=== PATIENT | male | born 1955 | race Caucasian/White ===

== ENCOUNTER → 2017-11-02 | Outpatient (CLI) | payer OTHER ==
[2017-11-02 10:56] LABS: BASO % 0.5 %; BASO ABS # 0.05 K/uL (0-0.2); EOS % 3.2 %; EOS ABS # 0.32 K/uL (0-0.5); HEMATOCRIT 39.1 % (42-52); HEMOGLOBIN 12.6 g/dL (14.0-18.0); IG# 0.03 K/uL (0.00-0.02); LYMPH % 18.1 %; MEAN CELL VOLUME 100.3 fL (80-100); MEAN CORPUSCULAR HEMOGLOBIN 32.3 pg (25-34); MEAN CORPUSCULAR HGB CONC 32.2 g/dl (32-36); MEAN PLATELET VOLUME 11.6 fL (7.4-10.4); MONO % 10.7 %; MONO ABS # 1.07 K/uL (0.11-0.59); NEUT % 67.2 %; NEUT ABS # 6.69 K/uL (1.4-6.5); PLATELET COUNT 279 K/uL (130-400); RED CELL DISTRIBUTION WIDTH CV 13.8 % (11.5-14.5); RED CELL DISTRIBUTION WIDTH SD 49.6 fL (36.4-46.3); WHITE BLOOD COUNT 9.96 K/uL (4.8-10.8)
[2017-11-02 11:13] LABS: ALBUMIN 3.2 gm/dl (3.4-5.0); ALT/SGPT 41 U/L (12-78); BLOOD UREA NITROGEN 25 mg/dl (7-18); CALCIUM 9.5 mg/dl (8.5-10.1); CARBON DIOXIDE 25 mmol/L (21-32); CREATININE 0.78 mg/dl (0.60-1.40); GLUCOSE 189 mg/dl (70-99); POTASSIUM 4.1 mmol/L (3.5-5.1); SODIUM 138 mmol/L (136-145)
[2017-11-02 11:16] LABS: ALKALINE PHOSPHATASE 73 U/L (45-117); AST/SGOT 21 U/L (15-37); TOTAL PROTEIN 7.1 gm/dl (6.4-8.2)
[2017-11-02 11:38] LABS: HEMOGLOBIN A1C 6.7 % (4.5-5.6)
== END | disposition home or self-care (01) ==
LOC: C.LABUPNIT 09:29
PROVIDERS: ATTEND Nurse Practitioner Family
DX: E11.00 Type 2 diabetes mellitus with hyperosmolarity without nonketotic hyperglycemic-hyperosmolar coma (NKHHC) (principal); N18.2 Chronic kidney disease, stage 2 (mild)

== ENCOUNTER → 2017-11-08 | Outpatient (CLI) | payer OTHER ==
[2017-11-08 14:12] LABS: INFLUENZA B ANTIGEN Neg for Influ B (NEG)
== END ==
LOC: C.LABUPNIT 13:24
PROVIDERS: ATTEND Nurse Practitioner Family
DX: R50.9 Fever, unspecified (principal)

== ENCOUNTER 2017-11-15 23:51 | Inpatient (IN) | payer OTHER ==
[~2017-11-15] VITALS: Ht 188 cm; Wt 84.2 kg
[2017-11-16] VITALS (12 sets, daily range): BP systolic 114–129; BP diastolic 69–83; PULSE 70–99; TEMP 36.7–37.2; O2SAT 89–99; Ht 188 cm; Wt 84.2 kg
--- NOTE | 2017-11-16 00:43 | EMERGENCY ROOM VISIT NOTE ---
History Report prepared by Dana: Shivam Ramirez Under the Supervision of: Dr. Ashlee Dumont D.O. First contact with patient: 00:10 Chief Complaint: SHORTNESS OF BREATH Stated Complaint: SHORT OF BREATH History of Present Illness The patient is a 62 year old male who presents to the Emergency Room with complaints of persistent shortness of breath occurring prior to arrival. Per the nursing staff, the patient lives at [facility], and he was believed to have aspirated earlier today after coughing up his tube feeds and they sent him to the ED for evaluation. History is limited due to prior CVA. The patient was given IV Rocephin prior to transfer here. Source of History: nursing staff History Limited By: other (prior CVA) Onset: earlier today Position: other (global) Quality: other (shortness of breath) Timing: other (persistent) Associated Symptoms: + cough Review of Systems HPI is limited secondary to prior CVA Past Medical & Surgical Medical Problems: (1) Aspiration pneumonia (2) CKD (chronic kidney disease) (3) COPD (chronic obstructive pulmonary disease) (4) Diabetes (5) History of CVA (cerebrovascular accident) (6) HLD (hyperlipidemia) (7) PVD (peripheral vascular disease) Social History Smoking Status: Unknown if Ever Smoked Marital Status: single Housing Status: snf Current/Historical Medications Scheduled Atorvastatin (Lipitor), 20 MG PEG HS Bisacodyl (Dulcolax), 10 MG RE UD Carbamazepine (Tegretol), 100 MG PEG HS Carbamazepine (Carbatrol Er), 400 MG PEG BID Citalopram Hydrobromide (Citalopram Hydrobromide), 40 MG PEG DAILY Insulin Glargine (Lantus), 12 UNITS SQ QPM Lactobacillus Acidophilus (Lactinex), 1 TAB PEG TID Levetiractam (Levetiracetam), 10 ML PEG BID Metformin Hcl (Glucophage), 1,000 MG PEG BID Nystatin (Nystatin Suspension), 5 ML PO Q8 [Enteral Feed], 1 DOSE PEG Q8 [Water Flush], 250 ML PEG Q6 Scheduled PRN Acetaminophen (Tylenol), 650 MG PEG Q8 PRN for Pain Acetaminophen (Tylenol), 650 MG RE Q6H PRN for MILD PAIN Bisacodyl (Bisacodyl), 40 MG RE UD PRN for Constipation Budesonide (Inhalation) (Pulmicort), 2 ML INH QID PRN for copd Magnesium Hydroxide (Milk Of Magnesia), 30 ML PEG Q72 HOURS PRN for Constipation Allergies Coded Allergies: Pseudoephedrine (Verified Allergy, Unknown, UNKNOWN, 11/16/17) Physical Exam Vital Signs Date Time Temp Pulse Resp B/P (MAP) Pulse Ox O2 Delivery O2 Flow Rate FiO2 11/16/17 01:50 105 121/82 93 Nasal Cannula 4.0 11/16/17 00:36 94 Nasal Cannula 4.0 11/16/17 00:06 94 Nasal Cannula 4.0 11/15/17 23:59 121 11/15/17 23:58 37.0 121 25 130/81 94 Nasal Cannula 4.0 Physical Exam General: Non-verbal. HEENT: Head - normocephalic and atraumatic Pupils are equal, round, and reactive to light. Extraocular eye muscles are intact, and sclera are anicteric. Nose - moist nasal mucosa without discharge. Mouth - moist buccal mucosa. Oropharynx is nonerythematous and there is no tonsillar exudate or edema noted. Neck: Supple; no JVD, nuchal rigidity, cervical lymphadenopathy. Heart: Tachycardic rate and regular rhythm. There is a normal S1 and S2 with no murmurs, clicks, or gallops appreciated. Lungs: Tachypneic and raspy breath sounds. Rhonchi in all lung vasquez worse on the right than the left. Abdomen: Soft, completely nontender, nondistended, with good bowel sounds. There are no palpable pulsatile masses or hepatosplenomegaly. There is no guarding, rigidity, or rebound noted. Extremities: Left lower extremity has areas of skin breakdown. No evidence of cyanosis, clubbing, or edema. There are easily palpable peripheral pulses. Skin: Hot and dry with good turgor and no rashes. Medical Decision & Procedures ER Provider Diagnostic Interpretation: X-ray results as stated below per interpretation by me and the radiologist: Chest X-ray: Significantly rotated. No obvious pulmonary infiltrate or consolidation. Laboratory Results 11/16/17 00:05 Red Blood Count 3.91, Mean Corpuscular Volume 99.0, Mean Corpuscular Hemoglobin 32.2, Mean Corpuscular Hemoglobin Concent 32.6, Mean Platelet Volume 10.7, Neutrophils (%) (Auto) 82.8, Lymphocytes (%) (Auto) 8.9, Monocytes (%) (Auto) 7.4, Eosinophils (%) (Auto) 0.3, Basophils (%) (Auto) 0.2, Neutrophils # (Auto) 14.61, Lymphocytes # (Auto) 1.56, Monocytes # (Auto) 1.30, Eosinophils # (Auto) 0.05, Basophils # (Auto) 0.03 11/16/17 00:05 Test 11/16/17 00:05 11/16/17 00:55 White Blood Count 17.62 K/uL (4.8-10.8) Red Blood Count 3.91 M/uL (4.7-6.1) Hemoglobin 12.6 g/dL (14.0-18.0) Hematocrit 38.7 % (42-52) Mean Corpuscular Volume 99.0 fL (80-100) Mean Corpuscular Hemoglobin 32.2 pg (25-34) Mean Corpuscular Hemoglobin Concent 32.6 g/dl (32-36) Platelet Count 250 K/uL (130-400) Mean Platelet Volume 10.7 fL (7.4-10.4) Neutrophils (%) (Auto) 82.8 % Lymphocytes (%) (Auto) 8.9 % Monocytes (%) (Auto) 7.4 % Eosinophils (%) (Auto) 0.3 % Basophils (%) (Auto) 0.2 % Neutrophils # (Auto) 14.61 K/uL (1.4-6.5) Lymphocytes # (Auto) 1.56 K/uL (1.2-3.4) Monocytes # (Auto) 1.30 K/uL (0.11-0.59) Eosinophils # (Auto) 0.05 K/uL (0-0.5) Basophils # (Auto) 0.03 K/uL (0-0.2) RDW Standard Deviation 50.4 fL (36.4-46.3) RDW Coefficient of Variation 14.1 % (11.5-14.5) Immature Granulocyte % (Auto) 0.4 % Immature Granulocyte # (Auto) 0.07 K/uL (0.00-0.02) Hyposegmented Neutrophils 1+ Prothrombin Time 9.6 SECONDS (9.0-12.0) Prothromb Time International Ratio 0.9 (0.9-1.1) Activated Partial Thromboplast Time 24.6 SECONDS (21.0-31.0) Partial Thromboplastin Ratio 0.9 Anion Gap 10.0 mmol/L (3-11) Est Creatinine Clear Calc Drug Dose 114.2 ml/min Estimated GFR () 112.5 Estimated GFR (Non- 97.1 BUN/Creatinine Ratio 29.5 (10-20) Calcium Level 9.2 mg/dl (8.5-10.1) Total Bilirubin 0.2 mg/dl (0.2-1) Aspartate Amino Transf (AST/SGOT) 18 U/L (15-37) Alanine Aminotransferase (ALT/SGPT) 35 U/L (12-78) Alkaline Phosphatase 85 U/L (45-117) Total Protein 7.3 gm/dl (6.4-8.2) Albumin 3.0 gm/dl (3.4-5.0) Globulin 4.3 gm/dl (2.5-4.0) Albumin/Globulin Ratio 0.7 (0.9-2) Influenza Type A Antigen Neg for Influ A (NEG) Influenza Type B Antigen Neg for Influ B (NEG) Bedside Lactic Acid Venous 2.60 mmol/L (0.90-1.70) Laboratory results per my review. Medications Administered Medications (Trade) Dose Ordered Sig/Valerie Route Start Time Stop Time Status Last Admin Dose Admin Piperacillin Sod/ Tazobactam Sod (Zosyn Iv) 4.5 gm NOW STAT IV 11/16/17 00:53 11/16/17 00:54 DC 11/16/17 01:05 4.5 GM Sodium Chloride 1,000 ml @ 250 mls/hr Q4H STAT IV 11/16/17 01:49 11/16/17 04:47 DC 11/16/17 01:52 250 MLS/HR Sodium Chloride 1,000 ml @ 999 mls/hr Q1H1M STAT IV 11/16/17 01:49 11/16/17 02:49 DC 11/16/17 01:52 999 MLS/HR Procedure Ordered: Zosyn IV and Sodium Chloride ECG Indication: SOB/dyspnea Rate (beats per minute): 112 Rhythm: sinus tachycardia Findings: no acute ischemic change, no ectopy ED Course 0031: Past medical records reviewed. The patient was evaluated in room B11. A complete history and physical exam was performed. A septic protocol was performed. A twelve-lead EKG was obtained. The patient's EKG was interpreted by me. A chest x-ray was obtained. 0053: Zosyn 4.5gm IV 0149: Sodium Chloride 1000 ml @ 999 mls/hr IV, Sodium Chloride 1000 ml @ 250 mls /hr IV. 0150: Discussed the patient's case with Dr. Michaels. The patient will be evaluated for further management. 0212: I reevaluated the patient, and his vitals were stable, and he was in no significant respiratory distress. Medical Decision The patient is a 62 year old male who presents to the ED with shortness of breath. Differential diagnosis includes sepsis, aspiration, pneumonia, and illness. LaB results: White count of 17.6, hemoglobin of 12.6, 82% neutrophils, lactic acid of 2.6, BUN 24, creatinine .8, normal LFTs, normal coags, negative flu. This is a 62-year-old male patient with a history of stroke from [facility] who presents to the emergency department for possible aspiration pneumonia. The patient has a feeding tube in place. Nurses found the patient lying flat with vomitus about his face that contained tube feeds. The patient then appeared to be in moderate respiratory distress with O2 saturations in the 80s. He was suctioned for a large amount of tube feeds from the mouth. They're concerned for aspiration. They administered 1 g of IV Rocephin centimeter for evaluation. The patient remained hemodynamically stable on supplemental oxygen. The patient appears to be septic. He was receiving IV crystalloid therapy. His blood pressure remained stable. He was given IV Zosyn. Medication Reconcilliation Current Medication List: was personally reviewed by me Blood Pressure Screening Patient's blood pressure: Normal blood pressure Monitored by the hospitalist Consults Time Called: 0150 Consulting Physician: Dr. Brando FREEMAN Hospitalist Returned Call: 0150 Discussed the patient's case with Dr. Brando FREEMAN Hospitalist. The patient will be evaluated for further management. Impression Primary Impression: Sepsis Scribe Attestation The scribe's documentation has been prepared under my direction and personally reviewed by me in its entirety. I confirm that the note above accurately reflects all work, treatment, procedures, and medical decision making performed by me. Departure Information Dispostion Being Evaluated By Hospitalist Referrals Siomara Post (PCP) Patient Instructions My [facility] Problem Qualifiers Primary Impression: Sepsis Sepsis type: sepsis due to unspecified organism Qualified Codes: A41.9 - Sepsis, unspecified organism
[2017-11-16 00:53] LABS: HEMATOCRIT 38.7 % (42-52); HEMOGLOBIN 12.6 g/dL (14.0-18.0); MEAN CORPUSCULAR HEMOGLOBIN 32.2 pg (25-34); MEAN CORPUSCULAR HGB CONC 32.6 g/dl (32-36); MEAN PLATELET VOLUME 10.7 fL (7.4-10.4); PLATELET COUNT 250 K/uL (130-400); RED CELL DISTRIBUTION WIDTH CV 14.1 % (11.5-14.5); RED CELL DISTRIBUTION WIDTH SD 50.4 fL (36.4-46.3); WHITE BLOOD COUNT 17.62 K/uL (4.8-10.8)
[2017-11-16] MEDS ORDERED: PIPERACILLIN/TAZOBACTAM 4.5 GM/100ML D5W IV STA (00:53)
[2017-11-16 01:08] LABS: INR 0.9 (0.9-1.1); PTT PATIENT 24.6 SECONDS (21.0-31.0)
[2017-11-16 01:14] LABS: CALCIUM 9.2 mg/dl (8.5-10.1); CREATININE 0.8 mg/dl (0.60-1.40); POTASSIUM 4.4 mmol/L (3.5-5.1)
[2017-11-16 01:17] LABS: BASO % 0.2 %; BASO ABS # 0.03 K/uL (0-0.2); EOS % 0.3 %; EOS ABS # 0.05 K/uL (0-0.5); IG# 0.07 K/uL (0.00-0.02); LYMPH % 8.9 %; LYMPH ABS # 1.56 K/uL (1.2-3.4); MONO % 7.4 %; NEUT % 82.8 %; NEUT ABS # 14.61 K/uL (1.4-6.5); TOTAL PROTEIN 7.3 gm/dl (6.4-8.2)
[2017-11-16 01:20] LABS: INFLUENZA B ANTIGEN Neg for Influ B (NEG)
[2017-11-16] MEDS ORDERED: NYSS/ PO (01:30)
[2017-11-16] MEDS ORDERED: BUDE1SUS INH (01:32)
[2017-11-16] MEDS ORDERED: SODIUM CHLORIDE 0.9% 1000ML 1,000 ML IV STA ×2 (01:49)
[2017-11-16] MEDS ORDERED: METF-384 PEG (02:18)
[2017-11-16] MEDS ORDERED: MOML PEG (02:19)
[2017-11-16] MEDS ORDERED: INSDGI SQ (02:21)
[2017-11-16] MEDS ORDERED: LCTX PEG (02:22)
[2017-11-16] MEDS ORDERED: LEVE500T13 PO (02:24)
[2017-11-16] MEDS ORDERED: KPPS PEG (02:26)
[2017-11-16] MEDS ORDERED: ACET-1311 PEG (02:28)
[2017-11-16] MEDS ORDERED: ACET650S10 RE (02:30)
[2017-11-16] MEDS ORDERED: ATOR-22 PEG (02:31)
[2017-11-16] MEDS ORDERED: BISA1TAB15 RE (02:32)
[2017-11-16] MEDS ORDERED: CARB200T PEG (02:35)
[2017-11-16] MEDS ORDERED: CARB1CAP8 PEG (02:36)
[2017-11-16] MEDS ORDERED: CITA40TA4 PEG (02:37)
[2017-11-16] MEDS ORDERED: BISA-16 RE (02:38)
[2017-11-16] MEDS ORDERED: [UNRECOGNIZED DRUG - MIXTURE] PEG (02:41)
[2017-11-16] MEDS ORDERED: WATER FLUSH PEG (02:43)
[2017-11-16] MEDS ORDERED: PIPERACILL/TAZOBAC CONSULT ACTIVE PRN (03:00)
[2017-11-16] MEDS ORDERED: BISACODYL 5 MG TABEC GT PRN (03:00)
[2017-11-16] MEDS ORDERED: SODIUM CHLORIDE 0.9% 1000ML 1,000 ML IV SCH (03:15)
[2017-11-16] MEDS ORDERED: ONDANSETRON INJ 2 MG/ML 2 ML VIAL IV PRN (03:30)
[2017-11-16] MEDS ORDERED: MoRPHine SULFATE 2 MG/ML CARP IV PRN (03:30)
[2017-11-16] MEDS ORDERED: MAGNESIUM HYDROXIDE SUSP 30 ML UDC PO PRN (03:30)
[2017-11-16] MEDS ORDERED: ALUMINUM/MAGNESIUM/SIMETH (MAALOX MAX) 30 ML UDC PO PRN (03:30)
[2017-11-16] MEDS ORDERED: ACETAMINOPHEN 325 MG TAB PO PRN (03:30)
[2017-11-16] MEDS ORDERED: POLYETHYLENE (MIRALAX) 17 GM PACK PO PRN (03:30)
--- NOTE | 2017-11-16 03:42 | History and Physical ---
History & Physical Date & Time of Service: Nov 16, 2017 at 03:08 Chief Complaint: Short Of Breath Primary Care Physician: Siomara Post History of Present Illness Source: hospital records 62 y/o M Hx HTN, DMII, CKD, seizures, COPD, CVA - R hemiplegia and aphasia. Presenting for a NH where he was found spitting up/gurgling his tube feeds. He was hypoxic on arrival to the ER. Initial labs reveal leukocytosis and an elevated lactic acid. He is noncommunicative and cannot provide any further info. Past Medical/Surgical History 1) CVA - R hemiplegia, aphasia, dysphagia - MCA thrombosis 2) COPD 3) Seizure disorder 4) GERD 5) CKD II 6) HTN 7) Depression 8) DM II 9) Former smoker 10) Peg placement Social History Smoking Status: Former Smoker Allergies Coded Allergies: Pseudoephedrine (Verified Allergy, Unknown, UNKNOWN, 11/16/17) Home Medications Scheduled Atorvastatin (Lipitor), 20 MG PEG HS Bisacodyl (Dulcolax), 10 MG RE UD Carbamazepine (Tegretol), 100 MG PEG HS Carbamazepine (Carbatrol Er), 400 MG PEG BID Citalopram Hydrobromide (Citalopram Hydrobromide), 40 MG PEG DAILY Insulin Glargine (Lantus), 12 UNITS SQ QPM Lactobacillus Acidophilus (Lactinex), 1 TAB PEG TID Levetiractam (Levetiracetam), 10 ML PEG BID Metformin Hcl (Glucophage), 1,000 MG PEG BID Nystatin (Nystatin Suspension), 5 ML PO Q8 [Enteral Feed], 1 DOSE PEG Q8 [Water Flush], 250 ML PEG Q6 Scheduled PRN Acetaminophen (Tylenol), 650 MG PEG Q8 PRN for Pain Acetaminophen (Tylenol), 650 MG RE Q6H PRN for MILD PAIN Bisacodyl (Bisacodyl), 40 MG RE UD PRN for Constipation Budesonide (Inhalation) (Pulmicort), 2 ML INH QID PRN for copd Magnesium Hydroxide (Milk Of Magnesia), 30 ML PEG Q72 HOURS PRN for Constipation Review of Systems Cannot provide - found gurgling/spitting up what looked like his tube feeds Physical Exam Vital Signs Date Time Temp Pulse Resp B/P (MAP) Pulse Ox O2 Delivery O2 Flow Rate FiO2 11/16/17 01:50 105 121/82 93 Nasal Cannula 4.0 11/16/17 00:36 94 Nasal Cannula 4.0 11/16/17 00:06 94 Nasal Cannula 4.0 11/15/17 23:59 121 11/15/17 23:58 37.0 121 25 130/81 94 Nasal Cannula 4.0 General Appearance: + pertinent finding (Noncommunicative, middle aged male - no overt distress - gurgling can be heard) Head: normocephalic Eyes: normal inspection ENT: normal ENT inspection, + pertinent finding (COuld not examine oral cavity) Neck: supple, thyroid normal Respiratory/Chest: chest non-tender, + pertinent finding (Exam is limited by shallow effort and large air noises - no audible wheezing) Cardiovascular: regular rate, rhythm, no edema, no gallop Abdomen/GI: normal bowel sounds, non tender, soft Back: normal inspection, no CVA tenderness Extremities/Musculoskelatal: normal inspection, no calf tenderness, normal capillary refill Neurologic/Psych: + pertinent finding (Chronic R paralysis - may have degree of R neglect) Skin: normal color Diagnostics Laboratory Results Results Past 24 Hours Test 11/16/17 00:05 11/16/17 00:55 Range/Units White Blood Count 17.62 4.8-10.8 K/uL Red Blood Count 3.91 4.7-6.1 M/uL Hemoglobin 12.6 14.0-18.0 g/dL Hematocrit 38.7 42-52 % Mean Corpuscular Volume 99.0 80-100 fL Mean Corpuscular Hemoglobin 32.2 25-34 pg Mean Corpuscular Hemoglobin Concent 32.6 32-36 g/dl Platelet Count 250 130-400 K/uL Mean Platelet Volume 10.7 7.4-10.4 fL Neutrophils (%) (Auto) 82.8 % Lymphocytes (%) (Auto) 8.9 % Monocytes (%) (Auto) 7.4 % Eosinophils (%) (Auto) 0.3 % Basophils (%) (Auto) 0.2 % Neutrophils # (Auto) 14.61 1.4-6.5 K/uL Lymphocytes # (Auto) 1.56 1.2-3.4 K/uL Monocytes # (Auto) 1.30 0.11-0.59 K/uL Eosinophils # (Auto) 0.05 0-0.5 K/uL Basophils # (Auto) 0.03 0-0.2 K/uL RDW Standard Deviation 50.4 36.4-46.3 fL RDW Coefficient of Variation 14.1 11.5-14.5 % Immature Granulocyte % (Auto) 0.4 % Immature Granulocyte # (Auto) 0.07 0.00-0.02 K/uL Hyposegmented Neutrophils 1+ Prothrombin Time 9.6 9.0-12.0 SECONDS Prothromb Time International Ratio 0.9 0.9-1.1 Activated Partial Thromboplast Time 24.6 21.0-31.0 SECONDS Partial Thromboplastin Ratio 0.9 Sodium Level 135 136-145 mmol/L Potassium Level 4.4 3.5-5.1 mmol/L Chloride Level 99 98-107 mmol/L Carbon Dioxide Level 26 21-32 mmol/L Anion Gap 10.0 3-11 mmol/L Blood Urea Nitrogen 24 7-18 mg/dl Creatinine 0.80 0.60-1.40 mg/dl Est Creatinine Clear Calc Drug Dose 114.2 ml/min Estimated GFR () 112.5 Estimated GFR (Non- 97.1 BUN/Creatinine Ratio 29.5 10-20 Random Glucose 173 70-99 mg/dl Calcium Level 9.2 8.5-10.1 mg/dl Total Bilirubin 0.2 0.2-1 mg/dl Aspartate Amino Transf (AST/SGOT) 18 15-37 U/L Alanine Aminotransferase (ALT/SGPT) 35 12-78 U/L Alkaline Phosphatase 85 45-117 U/L Total Protein 7.3 6.4-8.2 gm/dl Albumin 3.0 3.4-5.0 gm/dl Globulin 4.3 2.5-4.0 gm/dl Albumin/Globulin Ratio 0.7 0.9-2 Influenza Type A Antigen Neg for Influ A NEG Influenza Type B Antigen Neg for Influ B NEG Bedside Lactic Acid Venous 2.60 0.90-1.70 mmol/L Microbiology Results 11/16/17 Blood Culture, Received Pending 11/16/17 Blood Culture, Received Pending Diagnostic Radiology CXR - no acute infiltrates EKG NSR Impression Assessment and Plan 62 y/o M Hx HTN, DMII, CKD, seizures, COPD, CVA - R hemiplegia and aphasia. Presenting for a NH where he was found spitting up/gurgling his tube feeds. He was hypoxic on arrival to the ER. Initial labs reveal leukocytosis and an elevated lactic acid. He is noncommunicative and cannot provide any further info. 1) Aspiration pneumonia - pt placed on Zosyn, 02 protocol, nebs as needed. His tube feeds are held and will he will eventually need reevaluation for continued use of his PEG. 2) COPD - uses Ipratropium and Pulmicourt only - no current wheezing - Sensitivity to Albuterol is listed 3) DM - Placed on SS - POC Q3H due to holding of enteral feeding 4) CKD II - listed in chart - function is WNL 5) Seizure disorder - cont Keppra, Carbamazapine 6) History of CVA - currently receiving a Statin - no ASA listed - would verify with NH as he should be on Aspirin if he can tolerate This pt arrived at his NH after a CVA at a [facility]-way where he was residing - he has an estranged sister and no other relatives - he was his own decision maker prior to the CVA Full code - confirmed with NH - Heparin prophylaxis Total time for this admit including review of labs, meds, outside records, CTA, EKG - discussion with ER attending - explanation of admission to pt - 40 min Level of Care Telemetry Resuscitation Status FULL RESUSCITATION VTE Prophylaxis Given or contraindicated: Unfractionated heparin SQ
[2017-11-16] MEDS: TUBE FEEDING WATER FLUSH PEG SCH ×3 (06:00→17:28)
[2017-11-16] MEDS: PIPERACILL/TAZOBAC IV 3.375 GM in DEXTROSE 5% 100ML 100 ML IV SCH ×3 (06:16→20:36)
[2017-11-16] MEDS: INSULIN ASPART 100 UNITS/ML 3 ML PEN SC SCH ×3 (07:00→17:52)
[2017-11-16] MEDS ORDERED: NURSING VERBAL MED ORDER ONE (07:15)
--- NOTE | 2017-11-16 07:23 | DIAGNOSTIC IMAGING REPORT ---
CHEST ONE VIEW PORTABLE CLINICAL HISTORY: Sepsis COMPARISON STUDY: No previous studies for comparison. FINDINGS: The patient is rotated. Multiple old right-sided rib fractures are incidentally noted. There is no pneumothorax or pleural effusion. There may be mild left upper lung airspace opacity. There is no lobar consolidation or evidence for pulmonary edema. Cardiac size is normal. Linear left basilar opacity is suggestive of atelectasis. IMPRESSION: Mild left upper lung opacity which favors an infectious process. Radiographic follow up is recommended to ensure resolution. Electronically signed by: Ulysses Barron M.D. 11/16/2017 7:22 AM Dictated Date/Time: 11/16/2017 7:19 AM
[2017-11-16] MEDS ORDERED: INFLUENZA VIRUS QUAD VACCINE 0.5 ML SYR IM. ONE (08:00)
[2017-11-16] MEDS ORDERED: PNEUMOCOCCAL ADMINISTRATION CHARGE ONE (08:00)
[2017-11-16] MEDS ORDERED: INFLUENZA ADMINISTRATION CHARGE ONE (08:00)
[2017-11-16] MEDS ORDERED: PNEUMOCOCCAL POLYSACCHARIDES 25 MCG/0.5 ML VIAL/SYR IM. ONE (08:00)
[2017-11-16] MEDS: IPRATROPIUM BROMIDE NEB SOLN 0.02% 2.5 ML VIAL INH SCH ×3 (08:02→23:36)
[2017-11-16] MEDS: BUDESONIDE 0.5 MG/2 ML VIAL (PULMICORT) INH SCH ×2 (09:30→23:20)
[2017-11-16] MEDS: LEVETIRACETAM SOLN 500 MG/5 ML UDP PEG SCH ×2 (09:37→20:09)
[2017-11-16] MEDS: LACTOBACILLUS ACIDOPHILUS (FLORANEX) TAB PEG SCH ×3 (09:38→20:08)
[2017-11-16] MEDS: NYSTATIN SUSP 500,000 U/5 ML UDC PO SCH ×3 (09:38→20:37)
[2017-11-16] MEDS: CITALOPRAM 40 MG TAB PEG SCH (09:38)
[2017-11-16] MEDS: HEPARIN SOD 5000 UNIT/0.5 ML CARP SQ SCH ×2 (10:08→15:55)
[2017-11-16 10:15] LABS: HEMATOCRIT 33.9 % (42-52); HEMOGLOBIN 10.9 g/dL (14.0-18.0); MEAN CELL VOLUME 98.8 fL (80-100); MEAN CORPUSCULAR HEMOGLOBIN 31.8 pg (25-34); MEAN CORPUSCULAR HGB CONC 32.2 g/dl (32-36); MEAN PLATELET VOLUME 9.9 fL (7.4-10.4); PLATELET COUNT 193 K/uL (130-400); RED CELL DISTRIBUTION WIDTH CV 14.1 % (11.5-14.5); WHITE BLOOD COUNT 14.08 K/uL (4.8-10.8)
[2017-11-16] MEDS: CARBAMAZEPINE 200 MG TAB PEG SCH ×5 (10:29→20:31)
[2017-11-16 10:39] LABS: CALCIUM 8.4 mg/dl (8.5-10.1); CREATININE 0.79 mg/dl (0.60-1.40); POTASSIUM 3.9 mmol/L (3.5-5.1)
--- NOTE | 2017-11-16 12:42 | Hospitalist Progress Note ---
Hospitalist Progress Note Date of Service Nov 16, 2017. (Eugenio Ruiz PA-C) Subjective Attending: Dr. 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 He was found flat in bed with tube feeds gurgling from his mouth and was transferred to [facility] for further evaluation and treatment. He was started on Zosyn IV and supplemental O2. On examination he was found to be saturating at 93 % on room air. He still has significant rhonchi but is in no apparent distress. PEG tube is secure with no erosion at the os. The bumper is in place and is also secure. Unable to obtain ROS due to patient condition. No records are in the patient's paper chart from [facility]. (Eugenio Ruiz PA-C) Medications Current Inpatient Medications Medications (Trade) Dose Ordered Sig/Valerie Route Start Time Stop Time Status Last Admin Dose Admin Atorvastatin Calcium (Lipitor Tab) 20 mg HS PEG 11/16/17 21:00 12/16/17 20:59 Bisacodyl (Dulcolax Tab) 10 mg DAILY PRN GT 11/16/17 03:00 12/16/17 02:59 Carbamazepine (Tegretol Tab) 100 mg HS PEG 11/16/17 21:00 12/16/17 20:59 Citalopram Hydrobromide (celeXA TAB) 40 mg DAILY PEG 11/16/17 09:00 12/16/17 08:59 11/16/17 09:38 40 MG Insulin Glargine (Lantus Solostar Pen) 12 units QPM SQ 11/16/17 21:00 12/16/17 20:59 Lactobacillus Acidophilus (Floranex Tab) 4 tab TID PEG 11/16/17 09:00 12/16/17 08:59 11/16/17 09:38 4 TAB Levetiracetam (Keppra Soln) 1,000 mg BID PEG 11/16/17 09:00 12/16/17 08:59 11/16/17 09:37 1,000 MG Nystatin (Mycostatin Susp) 5 ml Q8 PO 11/16/17 06:30 11/26/17 06:29 11/16/17 09:38 5 ML Carbamazepine (Tegretol Tab) 200 mg QID PEG 11/16/17 10:00 12/16/17 09:59 11/16/17 10:29 200 MG Miscellaneous Information (Order Awaiting Action) 1 ea QS N/A 11/16/17 10:00 12/16/17 09:59 Sterile Water (Tube Feeding Water Flush) 1 ea Q6 PEG 11/16/17 06:00 12/16/17 05:59 Piperacillin Sod/ Tazobactam Sod 3.375 gm/Dextrose 115 ml @ 28.75 mls/ hr Q8H IV 11/16/17 06:00 11/23/17 05:59 11/16/17 06:16 28.75 MLS/HR Miscellaneous Information (Consult) 1 ea UD PRN N/A 11/16/17 03:00 12/16/17 02:59 Ipratropium [place] (Atrovent 0.02% 0.5MG/2.5ML Neb) 0.5 mg Q8R INH 11/16/17 08:00 12/16/17 07:59 11/16/17 08:02 0.5 MG Budesonide (Pulmicort Respules 0.5MG/ 2ML Neb Soln) 1 mg Q12R INH 11/16/17 09:30 12/16/17 09:29 Sodium Chloride 1,000 ml @ 100 mls/hr Q10H IV 11/16/17 03:15 11/16/17 13:14 11/16/17 06:16 100 MLS/HR Heparin Sodium (Porcine) (Heparin Sq 5000 Unit/0.5ml) 5,000 unit Q8H SQ 11/16/17 07:00 12/16/17 06:59 11/16/17 10:08 5,000 UNIT Acetaminophen (Tylenol Tab) 650 mg Q4H PRN PO 11/16/17 03:30 12/16/17 03:29 Al Hydrox/Mg Hydrox/Simethicone (Maalox Max Susp) 15 ml Q4H PRN PO 11/16/17 03:30 12/16/17 03:29 Magnesium Hydroxide (Milk Of Magnesia Susp) 30 ml Q12H PRN PO 11/16/17 03:30 12/16/17 03:29 Ondansetron HCl (Zofran Inj) 4 mg Q6H PRN IV 11/16/17 03:30 12/16/17 03:29 Morphine Sulfate (MoRPHine SULFATE INJ) 2 mg Q30M PRN IV 11/16/17 03:30 11/30/17 03:29 Polyethylene (Miralax Powder Packet) 17 gm DAILY PRN PO 11/16/17 03:30 12/16/17 03:29 Insulin Aspart (novoLOG ASPART) SLIDING SCALE G... Q6H SC 11/16/17 07:00 12/16/17 06:59 (Eugenio Ruiz PA-C) Objective Vital Signs Vital Signs - as noted below Laboratory Data - as noted below Physical Exam: General - NAD Eyes - No icterus, gaze conjugate ENT - Mucosa moist, no lesions or candidiasis Neck - Supple, No JVD Lungs - No bronchospasm. Diffuse coarse rales with associated rhonchi. Heart - Regular, rate controlled in the 80s Abdomen - Soft, NT, ND, BS present. No rebound tenderness. PEG tube in place and secure Extremities - RLE edema, pedal pulses intact. Healing wound on the left tibia tender to palpation. No evidence of cellulitis other than pain Neuro - Eyes open. Responds to painful stimuli. Unable to communicate due to aphasia. Does not follow simple commands. Date Time Temp Pulse Resp B/P (MAP) Pulse Ox O2 Delivery O2 Flow Rate FiO2 11/16/17 11:57 36.7 84 16 128/74 (92) 96 11/16/17 09:00 36.8 88 16 123/75 (91) 94 Nasal Cannula 3.0 11/16/17 08:00 95 Nasal Cannula 3.0 11/16/17 07:15 91 16 96 Nasal Cannula 4.0 11/16/17 03:45 37.2 99 24 114/69 Nasal Cannula 4.0 11/16/17 03:45 37.2 99 24 114/69 (84) 94 Nasal Cannula 4.0 11/16/17 03:32 37.0 106 25 141/83 93 11/16/17 03:21 106 141/83 93 Nasal Cannula 4.0 11/16/17 01:50 105 121/82 93 Nasal Cannula 4.0 11/16/17 00:36 94 Nasal Cannula 4.0 11/16/17 00:06 94 Nasal Cannula 4.0 11/15/17 23:59 121 11/15/17 23:58 37.0 121 25 130/81 94 Nasal Cannula 4.0 (Eugenio Ruiz PA-C) Laboratory Results Last 24 Hours Test 11/16/17 00:00 11/16/17 00:05 11/16/17 00:55 11/16/17 04:36 Urine Color YELLOW Urine Appearance CLEAR Urine pH 5.0 Urine Specific [place] 1.027 Urine Protein NEG Urine Glucose (UA) NEG Urine Ketones NEG Urine Occult Blood NEG Urine Nitrite NEG Urine Bilirubin NEG Urine Urobilinogen NEG Urine Leukocyte Esterase NEG Urine WBC (Auto) 1-5 /hpf Urine RBC (Auto) 0-4 /hpf Urine Hyaline Casts (Auto) 1-5 /lpf Urine Epithelial Cells (Auto) >30 /lpf Urine Bacteria (Auto) NEG Urine Renal Epithelial Cells /lpf White Blood Count 17.62 K/uL Red Blood Count 3.91 M/uL Hemoglobin 12.6 g/dL Hematocrit 38.7 % Mean Corpuscular Volume 99.0 fL Mean Corpuscular Hemoglobin 32.2 pg Mean Corpuscular Hemoglobin Concent 32.6 g/dl Platelet Count 250 K/uL Mean Platelet Volume 10.7 fL Neutrophils (%) (Auto) 82.8 % Lymphocytes (%) (Auto) 8.9 % Monocytes (%) (Auto) 7.4 % Eosinophils (%) (Auto) 0.3 % Basophils (%) (Auto) 0.2 % Neutrophils # (Auto) 14.61 K/uL Lymphocytes # (Auto) 1.56 K/uL Monocytes # (Auto) 1.30 K/uL Eosinophils # (Auto) 0.05 K/uL Basophils # (Auto) 0.03 K/uL RDW Standard Deviation 50.4 fL RDW Coefficient of Variation 14.1 % Immature Granulocyte % (Auto) 0.4 % Immature Granulocyte # (Auto) 0.07 K/uL Hyposegmented Neutrophils 1+ Prothrombin Time 9.6 SECONDS Prothromb Time International Ratio 0.9 Activated Partial Thromboplast Time 24.6 SECONDS Partial Thromboplastin Ratio 0.9 Sodium Level 135 mmol/L Potassium Level 4.4 mmol/L Chloride Level 99 mmol/L Carbon Dioxide Level 26 mmol/L Anion Gap 10.0 mmol/L Blood Urea Nitrogen 24 mg/dl Creatinine 0.80 mg/dl Est Creatinine Clear Calc Drug Dose 114.2 ml/min Estimated GFR () 112.5 Estimated GFR (Non- 97.1 BUN/Creatinine Ratio 29.5 Random Glucose 173 mg/dl Calcium Level 9.2 mg/dl Total Bilirubin 0.2 mg/dl Aspartate Amino Transf (AST/SGOT) 18 U/L Alanine Aminotransferase (ALT/SGPT) 35 U/L Alkaline Phosphatase 85 U/L Total Protein 7.3 gm/dl Albumin 3.0 gm/dl Globulin 4.3 gm/dl Albumin/Globulin Ratio 0.7 Influenza Type A Antigen Neg for Influ A Influenza Type B Antigen Neg for Influ B Bedside Lactic Acid Venous 2.60 mmol/L Bedside Glucose 188 mg/dl Test 11/16/17 06:18 11/16/17 10:09 Lactic Acid Level 1.9 mmol/L White Blood Count 14.08 K/uL Red Blood Count 3.43 M/uL Hemoglobin 10.9 g/dL Hematocrit 33.9 % Mean Corpuscular Volume 98.8 fL Mean Corpuscular Hemoglobin 31.8 pg Mean Corpuscular Hemoglobin Concent 32.2 g/dl RDW Standard Deviation 50.0 fL RDW Coefficient of Variation 14.1 % Platelet Count 193 K/uL Mean Platelet Volume 9.9 fL Sodium Level 137 mmol/L Potassium Level 3.9 mmol/L Chloride Level 102 mmol/L Carbon Dioxide Level 28 mmol/L Anion Gap 7.0 mmol/L Blood Urea Nitrogen 17 mg/dl Creatinine 0.79 mg/dl Est Creatinine Clear Calc Drug Dose 115.6 ml/min Estimated GFR () 113.1 Estimated GFR (Non- 97.6 BUN/Creatinine Ratio 21.6 Random Glucose 180 mg/dl Calcium Level 8.4 mg/dl (Eugenio Ruiz PA-C) Assessment and Plan ASPIRATION PNEUMONIA * Found in supine position with tube feeds running and gurgling sounds from patient * Started on Zosyn * MRSA screening is negative * CXR with TRINITY opacity that is ill defined - will check f/u CXR tomorrow am * Oxygenation adequate on room air today * Continue supportive care PULMONARY * Former smoker * Reported COPD * Continue Abx for PNA * Continue bronchodilators * Unknown severity of COPD - target SaO2 between 88-92% NEURO * Seizure history - continue Keppra and Tegretol * No evidence of clonic activity * Will talk to Dr. Neal regarding utility of EEG or neuro consult * Hx CVA - R hemiplegia, aphasia, dysphagia - MCA thrombosis * Outpatient meds did not include ASA or clopidogrel and no anticoagulation * Continue statin RLE EDEMA * High risk of DVT * [facility] reported chronic edema but will check duplex to rule out DVT due to sedentary nature and poor clarity of timing regarding CVA * TEDs/SCDs if no DVT DMII * Continue Lantus * Continue SSI * Check HgB A1c NUTRITION * Patient with bolus tube feeds at [facility] * Nutrition consulted and I spoke with Babs Green RD. She will evaluate and write tube feed orders DVT PROPHYLAXIS * Heparin sub q * TEDs/SCDs if duplex is negative for DVTs Please refer to Dr. Neal's addendum for further recommendations (Eugenio Ruiz PA-C) Reviewed: Pt Seen/Exam by Me (Heidi Neal MD) History Physician [employer] Supervision Note: I interviewed and examined the patient. Discussed with NIURKA Ruiz and agree with findings and plan as documented in the note. Any exceptions or clarifications are listed here: Pt nonverbal, but appears comfortable. RN reports he is a lot more alert today, cooperative. Doppler LEs shows extensive DVTs bilaterally, heparin gtt started NAD, nonverbal, sitting up in bed RRR no mgr +coarse rhonchi anterior chest, otherwise CTAB Abd +BS soft NT ND Ext no edema, has some flexion contractures in upper extremities Skin-no rashes Pt is a 62 yo male with a h/o CVA with h/o HTN, DMII, CKD, seizures, COPD, CVA - R hemiplegia and aphasia. Presenting for a NH where he was found spitting up/ gurgling his tube feeds. He was hypoxic on arrival to the ER. Initial labs reveal leukocytosis and an elevated lactic acid. He is noncommunicative and cannot provide any further info. Aspiration pneumonia/Acute hypoxemic respiratory failure - with improving leukocytosis. Coul dhave PE considering extensive DVTs found today in LEs, however he is hemodynamically stable and treating with heparin gtt anyway-would not chnage management to get CTA CHest to look for PEs continue Zosyn, 02 protocol, nebs as needed. -ok to restart TFs, keep at 30 degrees -follow CXR Extensive bilateral lower extremity acute DVTs -seen on Doppler -started heparin gtt and will add on coumadin through PEG tube tomorrow -follow INR COPD - uses Ipratropium and Pulmicourt only - no current wheezing - Sensitivity to Albuterol is listed DMII - Placed on SS -check A1C, check accuchecks CKD II - listed in chart - function is WNL Seizure disorder - cont Keppra, Carbamazapine History of CVA - currently receiving a Statin - no ASA listed - would verify with NH as he should be on Aspirin if he can tolerate This pt arrived at his NH after a CVA at a nursing home where he was residing - he has an estranged sister and no other relatives - he was his own decision maker prior to the CVA Full code - confirmed with NH - Prophylaxis-being treated for acute DVT with Heparin gtt Documented By: Heidi Neal (Heidi Neal MD)
--- NOTE | 2017-11-16 14:35 | DIAGNOSTIC IMAGING REPORT ---
BILATERAL LOWER EXTREMITY VENOUS DOPPLER CLINICAL HISTORY: RLE edema - bedbound patient COMPARISON STUDY: No previous studies for comparison. TECHNIQUE: Sonography of the deep venous system of the bilateral lower extremities was performed. Compression and augmentation were evaluated. FINDINGS: There is extensive deep venous thrombus within the right lower extremity, including thrombus within the right common femoral, superficial femoral, popliteal, posterior tibial and peroneal veins. Several of these vessels are expanded. Thrombus is largely occlusive. There is extensive thrombosis within the left lower extremity with deep venous thrombus within the left common femoral, popliteal, posterior tibial and peroneal veins. IMPRESSION: Extensive deep venous thrombus within the bilateral lower extremities, as detailed above. Electronically signed by: Ulysses Barron M.D. 11/16/2017 2:34 PM Dictated Date/Time: 11/16/2017 2:32 PM
[2017-11-16] MEDS: FIBERSOURCE HN 1000ML BAG PEG SCH (15:53)
[2017-11-16] MEDS ORDERED: HEPARIN IV BOLUS 7,000 UNIT in SYRINGE 0 ML IV SCH (17:45)
[2017-11-16 17:52] LABS: PTT PATIENT 26.3 SECONDS (21.0-31.0)
[2017-11-16] MEDS: HEPARIN 25,000 UNIT/500ML D5W 500 ML IV PRN (17:59)
[2017-11-16] MEDS: ATORVASTATIN 20 MG TAB PEG SCH (20:09)
[2017-11-16] MEDS: INSULIN GLARGINE SOLOSTAR 100 UNITS/ML 3 ML PEN SQ SCH (20:33)
[2017-11-17] VITALS (10 sets, daily range): BP systolic 119–143; BP diastolic 69–83; PULSE 63–90; TEMP 36.6–37.2; O2SAT 89–96
[2017-11-17] MEDS: TUBE FEEDING WATER FLUSH PEG SCH ×4 (00:13→18:11)
[2017-11-17 01:17] LABS: PTT PATIENT 84.2 SECONDS (21.0-31.0)
[2017-11-17] MEDS: HEPARIN 25,000 UNIT/500ML D5W 500 ML IV PRN ×2 (02:00→11:38)
[2017-11-17] MEDS: PIPERACILL/TAZOBAC IV 3.375 GM in DEXTROSE 5% 100ML 100 ML IV SCH ×2 (04:59→13:34)
[2017-11-17] MEDS: NYSTATIN SUSP 500,000 U/5 ML UDC PO SCH ×3 (04:59→20:55)
[2017-11-17] MEDS: INSULIN ASPART 100 UNITS/ML 3 ML PEN SC SCH ×4 (06:00→18:00)
[2017-11-17] MEDS ORDERED: ALBUTEROL 0.083% NEBU SOLN 3 ML VIAL INH STA (06:29)
[2017-11-17] MEDS ORDERED: NURSING VERBAL MED ORDER ONE (06:30)
[2017-11-17] MEDS: IPRATROPIUM BROMIDE NEB SOLN 0.02% 2.5 ML VIAL INH SCH ×3 (06:31→22:50)
[2017-11-17] MEDS: BUDESONIDE 0.5 MG/2 ML VIAL (PULMICORT) INH SCH ×2 (07:17→22:50)
--- NOTE | 2017-11-17 07:34 | DIAGNOSTIC IMAGING REPORT ---
CHEST ONE VIEW PORTABLE CLINICAL HISTORY: 62 years-old Male presenting with TRINITY opacity - Aspiration pna. TECHNIQUE: Portable upright AP view of the chest was obtained. COMPARISON: 11/16/2017. FINDINGS: The patient is SANCHEZ rotated. Allowing for this, the cardiomediastinal silhouette is grossly normal. The previously noted opacity is less apparent on the current radiograph. However, the left lung does appear slightly more dense diffusely than the right lung. Elevation of the left hemidiaphragm. No new focal infiltrate. No large effusion or pneumothorax. Evidence of old right rib fractures. Upper abdomen normal. IMPRESSION: 1. Relatively less aeration of the left lung in comparison to the right with elevation left hemidiaphragm. No focal opacity is grossly apparent on the current radiograph. If there is continuing clinical concern, chest CT could be obtained. Aspiration cannot be excluded. Electronically signed by: Alhaji Palacio M.D. 11/17/2017 7:32 AM Dictated Date/Time: 11/17/2017 7:30 AM
[2017-11-17] MEDS: LACTOBACILLUS ACIDOPHILUS (FLORANEX) TAB PEG SCH ×3 (07:39→20:58)
[2017-11-17] MEDS: CITALOPRAM 40 MG TAB PEG SCH (07:40)
[2017-11-17] MEDS: LEVETIRACETAM SOLN 500 MG/5 ML UDP PEG SCH (07:40)
[2017-11-17] MEDS: CARBAMAZEPINE 200 MG TAB PEG SCH ×5 (08:01→20:57)
[2017-11-17 08:28] LABS: BASO % 0.3 %; BASO ABS # 0.03 K/uL (0-0.2); EOS % 2.3 %; EOS ABS # 0.25 K/uL (0-0.5); HEMATOCRIT 34.2 % (42-52); HEMOGLOBIN 11.2 g/dL (14.0-18.0); IG# 0.05 K/uL (0.00-0.02); LYMPH % 16.3 %; LYMPH ABS # 1.78 K/uL (1.2-3.4); MEAN CELL VOLUME 97.7 fL (80-100); MEAN CORPUSCULAR HGB CONC 32.7 g/dl (32-36); MONO % 8.8 %; MONO ABS # 0.96 K/uL (0.11-0.59); NEUT % 71.8 %; NEUT ABS # 7.87 K/uL (1.4-6.5); PLATELET COUNT 223 K/uL (130-400); RED CELL DISTRIBUTION WIDTH CV 13.6 % (11.5-14.5); RED CELL DISTRIBUTION WIDTH SD 47.8 fL (36.4-46.3); WHITE BLOOD COUNT 10.94 K/uL (4.8-10.8)
[2017-11-17 08:45] LABS: HEMOGLOBIN A1C 7.1 % (4.5-5.6)
[2017-11-17 08:49] LABS: PTT PATIENT 67.6 SECONDS (21.0-31.0)
[2017-11-17 08:57] LABS: CALCIUM 9.1 mg/dl (8.5-10.1); CREATININE 0.62 mg/dl (0.60-1.40); POTASSIUM 3.5 mmol/L (3.5-5.1)
--- NOTE | 2017-11-17 10:34 | Hospitalist Progress Note ---
Hospitalist Progress Note Date of Service Nov 17, 2017. (Stormy Beasley, KACYC) Subjective Pt evaluation today including: conversation w/ patient, physical exam, chart review, lab review, review of studies, review of inpatient medication list Patient seen and evaluated. Telemetry reviewed and he is NSR with rates 60-70s. Patient is non-verbal. Intermittently tracks with eyes but will not follow commands or expresses if he can shake his head yes/no. Unsure of level he can understand. Called [facility] today. Limited information on him since he just arrived 10/30. From their records no known history of bleed. Came from [place] and likely would be ischemic CVA. Per [facility], they are instructed to have F/U Head CT before initiating ASA and Dipyridamole. Additional Comments: ROS deferred. Patient is non-communicative. (Stormy Beasley, NIURKA-C) Medications Current Inpatient Medications Medications (Trade) Dose Ordered Sig/Valerie Route Start Time Stop Time Status Last Admin Dose Admin Atorvastatin Calcium (Lipitor Tab) 20 mg HS PEG 11/16/17 21:00 12/16/17 20:59 11/16/17 20:09 20 MG Bisacodyl (Dulcolax Tab) 10 mg DAILY PRN GT 11/16/17 03:00 12/16/17 02:59 Carbamazepine (Tegretol Tab) 100 mg HS PEG 11/16/17 21:00 12/16/17 20:59 11/16/17 20:31 100 MG Citalopram Hydrobromide (celeXA TAB) 40 mg DAILY PEG 11/16/17 09:00 12/16/17 08:59 11/17/17 07:40 40 MG Insulin Glargine (Lantus Solostar Pen) 12 units QPM SQ 11/16/17 21:00 12/16/17 20:59 11/16/17 20:33 12 UNITS Lactobacillus Acidophilus (Floranex Tab) 4 tab TID PEG 11/16/17 09:00 12/16/17 08:59 11/17/17 07:39 4 TAB Levetiracetam (Keppra Soln) 1,000 mg BID PEG 11/16/17 09:00 12/16/17 08:59 11/17/17 07:40 1,000 MG Nystatin (Mycostatin Susp) 5 ml Q8 PO 11/16/17 06:30 11/26/17 06:29 11/17/17 04:59 5 ML Carbamazepine (Tegretol Tab) 200 mg QID PEG 11/16/17 10:00 12/16/17 09:59 11/17/17 08:01 200 MG Sterile Water (Tube Feeding Water Flush) 1 ea Q6 PEG 11/16/17 06:00 12/16/17 05:59 11/17/17 04:59 1 EA Piperacillin Sod/ Tazobactam Sod 3.375 gm/Dextrose 115 ml @ 28.75 mls/ hr Q8H IV 11/16/17 06:00 11/23/17 05:59 11/17/17 04:59 28.75 MLS/HR Miscellaneous Information (Consult) 1 ea UD PRN N/A 11/16/17 03:00 12/16/17 02:59 Ipratropium [place] (Atrovent 0.02% 0.5MG/2.5ML Neb) 0.5 mg Q8R INH 11/16/17 08:00 12/16/17 07:59 11/17/17 06:31 0.5 MG Budesonide (Pulmicort Respules 0.5MG/ 2ML Neb Soln) 1 mg Q12R INH 11/16/17 09:30 12/16/17 09:29 11/17/17 07:17 1 MG Acetaminophen (Tylenol Tab) 650 mg Q4H PRN PO 11/16/17 03:30 12/16/17 03:29 Al Hydrox/Mg Hydrox/Simethicone (Maalox Max Susp) 15 ml Q4H PRN PO 11/16/17 03:30 12/16/17 03:29 Magnesium Hydroxide (Milk Of Magnesia Susp) 30 ml Q12H PRN PO 11/16/17 03:30 12/16/17 03:29 Ondansetron HCl (Zofran Inj) 4 mg Q6H PRN IV 11/16/17 03:30 12/16/17 03:29 Morphine Sulfate (MoRPHine SULFATE INJ) 2 mg Q30M PRN IV 11/16/17 03:30 11/30/17 03:29 Polyethylene (Miralax Powder Packet) 17 gm DAILY PRN PO 11/16/17 03:30 12/16/17 03:29 Insulin Aspart (novoLOG ASPART) SLIDING SCALE G... Q6H SC 11/16/17 07:00 12/16/17 06:59 Enteral Nutritional Formula (Fibersource Hn) 1,000 ml UD PEG 11/16/17 13:15 12/16/17 13:14 11/16/17 15:53 1,000 ML Heparin Sodium/ Dextrose 500 ml @ 27 mls/hr [id number] PRN IV 11/16/17 17:30 12/16/17 17:29 11/17/17 02:00 27 MLS/HR Warfarin Sodium (Coumadin Tab) 5 mg DAILY@16 PEG 11/17/17 16:00 12/17/17 15:59 (Stormy Beasley PA-C) Objective Vital Signs Date Time Temp Pulse Resp B/P (MAP) Pulse Ox O2 Delivery O2 Flow Rate FiO2 11/17/17 08:06 37.2 81 18 122/69 (86) 90 11/17/17 08:00 Room Air 11/17/17 07:17 68 18 89 Room Air 11/17/17 06:31 71 18 92 Room Air 11/17/17 04:00 Room Air 11/17/17 03:37 36.7 74 20 128/83 (98) 91 Room Air 11/17/17 00:01 Room Air 11/16/17 23:27 37.2 76 20 127/75 (92) 99 Room Air 11/16/17 23:20 77 16 93 Room Air 11/16/17 20:00 Room Air 11/16/17 19:40 36.9 74 23 129/75 (93) 91 Room Air 11/16/17 16:32 95 Room Air 11/16/17 16:11 36.8 75 18 127/83 (98) 95 11/16/17 15:12 70 16 89 Room Air 11/16/17 12:00 94 11/16/17 11:57 36.7 84 16 128/74 (92) 96 (Stormy Beasley PA-C) Physical Exam Notes: General Appearance: WDWN in NAD who is alert; unable to assess orientation; is non-verbal and currently non-communicative HEENT: Head is normocephalic/atraumatic Neck: Supple; Trachea midline; Neg JVD; Neg lymphadenopathy Heart: RRR with no M/G/R Lungs: Respirations unlabored; Neg accessory muscle use; mildly course in anterior vasquez but unable to cooperate to take deep breaths Abdomen: Soft, non-tender, non-distended; Positive BS x 4 quadrants; PEG placed in mid-abdomen without surrounding erythema Extremities: B/L edema; shiny skin Neurological: Intermittent garble incomprehensible speech Psychiatric: Minimal eye contact; flat affect Skin: Normal Color; Warm/Dry (Stormy Beasley, BOUBACAR) Laboratory Results Last 24 Hours Test 11/16/17 10:09 11/16/17 12:53 11/16/17 17:19 11/16/17 17:52 White Blood Count 14.08 K/uL Red Blood Count 3.43 M/uL Hemoglobin 10.9 g/dL Hematocrit 33.9 % Mean Corpuscular Volume 98.8 fL Mean Corpuscular Hemoglobin 31.8 pg Mean Corpuscular Hemoglobin Concent 32.2 g/dl RDW Standard Deviation 50.0 fL RDW Coefficient of Variation 14.1 % Platelet Count 193 K/uL Mean Platelet Volume 9.9 fL Sodium Level 137 mmol/L Potassium Level 3.9 mmol/L Chloride Level 102 mmol/L Carbon Dioxide Level 28 mmol/L Anion Gap 7.0 mmol/L Blood Urea Nitrogen 17 mg/dl Creatinine 0.79 mg/dl Est Creatinine Clear Calc Drug Dose 115.6 ml/min Estimated GFR () 113.1 Estimated GFR (Non- 97.6 BUN/Creatinine Ratio 21.6 Random Glucose 180 mg/dl Calcium Level 8.4 mg/dl Bedside Glucose 158 mg/dl 165 mg/dl Prothrombin Time 10.2 SECONDS Prothromb Time International Ratio 1.0 Activated Partial Thromboplast Time 26.3 SECONDS Partial Thromboplastin Ratio 1.0 Test 11/17/17 00:06 11/17/17 00:08 11/17/17 06:03 11/17/17 08:12 Bedside Glucose 136 mg/dl 167 mg/dl Activated Partial Thromboplast Time 84.2 SECONDS 67.6 SECONDS Partial Thromboplastin Ratio 3.2 2.6 White Blood Count 10.94 K/uL Red Blood Count 3.50 M/uL Hemoglobin 11.2 g/dL Hematocrit 34.2 % Mean Corpuscular Volume 97.7 fL Mean Corpuscular Hemoglobin 32.0 pg Mean Corpuscular Hemoglobin Concent 32.7 g/dl Platelet Count 223 K/uL Mean Platelet Volume 10.0 fL Neutrophils (%) (Auto) 71.8 % Lymphocytes (%) (Auto) 16.3 % Monocytes (%) (Auto) 8.8 % Eosinophils (%) (Auto) 2.3 % Basophils (%) (Auto) 0.3 % Neutrophils # (Auto) 7.87 K/uL Lymphocytes # (Auto) 1.78 K/uL Monocytes # (Auto) 0.96 K/uL Eosinophils # (Auto) 0.25 K/uL Basophils # (Auto) 0.03 K/uL RDW Standard Deviation 47.8 fL RDW Coefficient of Variation 13.6 % Immature Granulocyte % (Auto) 0.5 % Immature Granulocyte # (Auto) 0.05 K/uL Prothrombin Time 10.3 SECONDS Prothromb Time International Ratio 1.0 Sodium Level 139 mmol/L Potassium Level 3.5 mmol/L Chloride Level 102 mmol/L Carbon Dioxide Level 29 mmol/L Anion Gap 8.0 mmol/L Blood Urea Nitrogen 10 mg/dl Creatinine 0.62 mg/dl Est Creatinine Clear Calc Drug Dose 147.4 ml/min Estimated GFR () 125.0 Estimated GFR (Non- 107.8 BUN/Creatinine Ratio 15.9 Random Glucose 174 mg/dl Estimated Average Glucose 157 mg/dl Hemoglobin A1c 7.1 % Calcium Level 9.1 mg/dl Magnesium Level 1.9 mg/dl (Stormy Beasley, PA-C) Assessment and Plan Sepsis 2/2 Aspiration Pneumonia: IMPROVING - Has chronic PEG and was found supine with tube feeds gurgling - Continue Zosyn; F/U CXR less aeration in left lung, no focal opacity but aspiration cannot be R/O'd - Maintain HOB elevations and check residuals with PEG; nutrition following for tube feeds B/L Extensive DVTs: - Placed on a heparin gtt with plans to convert to Coumadin - will trend INRs H/O CVA with Seizure Disorder: - R hemiplegia, aphasia, dysphagia - MCA thrombosis - Atorvastatin 20 mg daily - Discussed with [facility] - instructed to have F/U Head CT before resuming ASA and Dipyridamole - Will obtain Head CT at this time - should be on antiplatelet given CVA - Tegretol 200 mg QID and 100 mg HS; Keprra 1000 mg BID COPD without Exacerbation: Unknown Severity - Pulmicort 1 mg BID; Atrovent nebs T2DM: - Lantus 12 units daily CKD Stage II: STABLE DVT Prophylaxis: Heparin/Coumadin bridge Code Status: FULL RESUSCITATION Disposition: Resident of [facility]; No POA, family estranged - Recent placement to [facility] for Sloane Greene after CVA Continued [facility] stay due to: multiple IV medications needed Discharge planning: retirement facility ([facility]) (Stormy Beasley PA-C) Reviewed: Pt Seen/Exam by Me (Heidi Neal MD) History Physician Title I Coordinator Supervision Note: I interviewed and examined the patient. Discussed with NIURKA Baesley and agree with findings and plan as documented in the note. Any exceptions or clarifications are listed here: Pt nonverbal, but appears comfortable. No concerns NAD, nonverbal, sitting up in bed RRR no mgr +coarse rhonchi anterior chest, otherwise CTAB Abd +BS soft NT ND Ext trace pitting edema right leg, has some flexion contractures in upper extremities Skin-chronic venous stasis changes Pt is a 62 yo male with a h/o CVA with h/o HTN, DMII, CKD, seizures, COPD, CVA - R hemiplegia and aphasia. Presenting for a NH where he was found spitting up/ gurgling his tube feeds. He was hypoxic on arrival to the ER. Initial labs reveal leukocytosis and an elevated lactic acid. He is noncommunicative and cannot provide any further info. Aspiration pneumonia/Acute hypoxemic respiratory failure - with improving leukocytosis. Could have PE considering extensive DVTs found today in LEs, however he is hemodynamically stable and treating with heparin gtt anyway-would not foreign exchange student coordinator to get CTA Chest to look for PEs Check ECHO to assess for right heart strain Much improved, afebrile, weaned off O2 -change to Augmentin and dc ZOsyn-finish out 7 day course -continue tube feeds, keep at 30 degrees Extensive bilateral lower extremity acute DVTs -seen on Doppler -started heparin gtt and starting coumadin through PEG tube today -follow INR COPD - uses Ipratropium and Pulmicort only - no current wheezing - Sensitivity to Albuterol is listed DMII - Placed on SS , A1C 7.1% continue accuchecks CKD II - listed in chart - function is WNL Seizure disorder - cont Keppra, Carbamazapine History of CVA -CT Head obtained today as per [facility] records-was to have CT Head prior to starting antiplatelet therapy s/p large CVA. CT Head neg for hemorrhage, but does show bilateral MCA territory infarcts, R>L Need to obtain records from [facility] on his CVA workup. This seems consistent with embolic type CVA, no evidence of AFib on tele here. - currently receiving a Statin -start ASA 81mg daily -on heparin/coumadin now for DVTs as well This pt arrived at his NH after a CVA at a fdc where he was residing - he has an estranged sister and no other relatives - he was his own decision maker prior to the CVA Full code - confirmed with NH - Prophylaxis-being treated for acute DVT with Heparin gtt Documented By: Heidi Neal (Heidi Neal MD)
--- NOTE | 2017-11-17 12:41 | DIAGNOSTIC IMAGING REPORT ---
CT HEAD WITHOUT CONTRAST (CT) CLINICAL HISTORY: RECENT CVA, ACCESS FOR BLEEDING COMPARISON STUDY: No previous studies for comparison. TECHNIQUE: Axial CT of the brain is performed from the vertex to the skull base. IV contrast was not administered for this examination. A dose lowering technique was utilized adhering to the principles of ALARA. CT DOSE: 614.27 mGy.cm FINDINGS: There are bilateral middle cerebral artery territory infarcts, right larger than left. There is no evidence of acute hemorrhage. There is no stomach and midline shift. There are patchy white matter hypodensities likely on a small vessel basis. There is mild ventricular dilatation, likely secondary to volume loss There is no evidence of acute sinusitis IMPRESSION: Bihemispheric infarcts. No evidence of acute hemorrhage. Electronically signed by: Brad Badillo M.D. 11/17/2017 12:40 PM Dictated Date/Time: 11/17/2017 12:38 PM
[2017-11-17] MEDS: WARFARIN SOD 5 MG TAB PEG SCH (16:27)
[2017-11-17] MEDS: AMOXICILLIN/CLAVULANATE TAB 875 MG TAB PO SCH ×2 (17:00→18:11)
[2017-11-17] MEDS: LEVETIRACETAM ORAL SOLN 100MG/ML PEG SCH (20:56)
[2017-11-17] MEDS: ATORVASTATIN 20 MG TAB PEG SCH (20:56)
[2017-11-17] MEDS: INSULIN GLARGINE SOLOSTAR 100 UNITS/ML 3 ML PEN SQ SCH (21:00)
[2017-11-18] VITALS (7 sets, daily range): BP systolic 120–146; BP diastolic 74–81; PULSE 63–111; TEMP 37–37.2; O2SAT 91–93
[2017-11-18] MEDS: INSULIN ASPART 100 UNITS/ML 3 ML PEN SC SCH ×4 (00:32→18:00)
[2017-11-18] MEDS: NYSTATIN SUSP 500,000 U/5 ML UDC PO SCH ×4 (06:09→21:49)
[2017-11-18] MEDS: TUBE FEEDING WATER FLUSH PEG SCH ×4 (06:09→18:06)
[2017-11-18 06:13] LABS: HEMATOCRIT 34.8 % (42-52); HEMOGLOBIN 11.2 g/dL (14.0-18.0); MEAN CELL VOLUME 97.2 fL (80-100); MEAN CORPUSCULAR HEMOGLOBIN 31.3 pg (25-34); MEAN PLATELET VOLUME 10.1 fL (7.4-10.4); PLATELET COUNT 245 K/uL (130-400); RED CELL DISTRIBUTION WIDTH CV 13.8 % (11.5-14.5); RED CELL DISTRIBUTION WIDTH SD 48.5 fL (36.4-46.3); WHITE BLOOD COUNT 8.81 K/uL (4.8-10.8)
[2017-11-18 06:14] LABS: MEAN CORPUSCULAR HGB CONC 32.2 g/dl (32-36)
[2017-11-18 06:23] LABS: PTT PATIENT 44.8 SECONDS (21.0-31.0)
[2017-11-18 06:37] LABS: CALCIUM 8.9 mg/dl (8.5-10.1); CREATININE 0.62 mg/dl (0.60-1.40); POTASSIUM 3.6 mmol/L (3.5-5.1)
[2017-11-18] MEDS: HEPARIN 25,000 UNIT/500ML D5W 500 ML IV PRN (06:55)
[2017-11-18] MEDS ORDERED: HEPARIN IV BOLUS 3,000 UNIT in SYRINGE 0 ML IV ONE (07:00)
[2017-11-18] MEDS: IPRATROPIUM BROMIDE NEB SOLN 0.02% 2.5 ML VIAL INH SCH ×3 (07:18→23:11)
[2017-11-18] MEDS: BUDESONIDE 0.5 MG/2 ML VIAL (PULMICORT) INH SCH ×3 (08:00→23:10)
[2017-11-18] MEDS: FIBERSOURCE HN 1000ML BAG PEG SCH (09:38)
[2017-11-18] MEDS: AMOXICILLIN/CLAVULANATE TAB 875 MG TAB PO SCH ×2 (09:45→16:41)
[2017-11-18] MEDS: LACTOBACILLUS ACIDOPHILUS (FLORANEX) TAB PEG SCH ×3 (09:48→20:59)
[2017-11-18] MEDS: CITALOPRAM 40 MG TAB PEG SCH (09:48)
[2017-11-18] MEDS: LEVETIRACETAM ORAL SOLN 100MG/ML PEG SCH ×2 (09:48→20:59)
[2017-11-18] MEDS: CARBAMAZEPINE 200 MG TAB PEG SCH ×5 (09:50→21:02)
[2017-11-18] MEDS: ASPIRIN 81 MG ECTAB PO SCH (10:11)
--- NOTE | 2017-11-18 12:20 | ECHOCARDIOGRAM REPORT ---
*NOTICE TO RECEIVING REPUBLICAN AGENCY This information is strictly Confidential and protected under [place] law. [place] law prohibits you from making any further disclosure of this information unless further disclosure is expressly permitted by the written consent of the person to whom it pertains or is authorized by law. A general authorization for the release of medical or other information is not sufficient for this purpose. Hospital accepts no responsibility if the information is made available to any other person, INCLUDING THE PATIENT. Interpretation Summary * Name: KULDIP NAVARRO Study Date: 11/18/2017 08:46 AM BP: 119/78 mmHg * Patient Location: .[id number]\1 HR: 64 * : 1955 (M/d/yyyy) Gender: Male Height: 74 in * Age: 62 yrs Ethnicity: CA Weight: 185 lb * Ordering Physician: Stormy Beasley * Referring Physician: Siomara Post * Performed By: Alba Chin RCS * * Reason For Study: CVA * BSA: 2.1 m2 * -- Conclusions -- * Left ventricular systolic function is normal. * Normal diastolic function * The right ventricle is mildly dilated. * A patent foramen ovale is present. * There is mild mitral regurgitation. * The right atrium is mildly dilated. Procedure Details * A complete two-dimensional transthoracic echocardiogram was performed (2D, M-mode, Doppler and color flow Doppler). * A saline contrast injection was performed to assess for cardiac shunting. * The injection was performed through an intravenous line in the right arm. * The attending nurse who injected the saline contrast was CAYDEN CRUZ, RN. * A total of 20 cc of agitated saline was given. Left Ventricle * The left ventricle is grossly normal size. * Left ventricular systolic function is normal. * Ejection Fraction = 55-60%. * Normal diastolic function * The left ventricular wall motion is normal. Right Ventricle * The right ventricle is mildly dilated. * The right ventricular systolic function is normal. Atria * The left atrial size is normal. * The right atrium is mildly dilated. * A patent foramen ovale is present. * Injection of contrast documented an interatrial shunt. Mitral Valve * The mitral valve is grossly normal. * There is mild mitral regurgitation. Tricuspid Valve * The tricuspid valve is not well visualized, but is grossly normal. * There is trace tricuspid regurgitation. Aortic Valve * The aortic valve is not well visualized. * No hemodynamically significant valvular aortic stenosis. * There is no significant aortic regurgitation. Great Vessels * The aortic root is normal size. Pericardium/Pleural * There is no pericardial effusion. MMode 2D Measurements and Calculations Ao root diam 2.4 cm Ao root area 4.5 cm\S\2 ACS 0.92 cm LVAd ap4 30.8 cm\S\2 LVLd ap4 8.2 cm EDV(MOD-sp4) 91.9 ml EDV(sp4-el) 98.6 ml LVAs ap4 21.3 cm\S\2 LVLs ap4 6.7 cm ESV(MOD-sp4) 54.9 ml ESV(sp4-el) 57.0 ml EF(MOD-sp4) 40.2 % EF(sp4-el) 42.2 % LVAd ap2 34.0 cm\S\2 LVLd ap2 8.1 cm EDV(MOD-sp2) 114.7 ml EDV(sp2-el) 122.0 ml LVAs ap2 24.4 cm\S\2 LVLs ap2 7.1 cm ESV(MOD-sp2) 66.8 ml ESV(sp2-el) 71.7 ml EF(MOD-sp2) 41.8 % EF(sp2-el) 41.2 % LVLd %diff -1.27 % EDV(MOD-bp) 103.2 ml LVLs %diff 4.4 % ESV(MOD-bp) 62.5 ml EF(MOD-bp) 39.5 % SV(MOD-sp4) 37.0 ml SI(MOD-sp4) 17.6 ml/m\S\2 SV(MOD-sp2) 47.9 ml SI(MOD-sp2) 22.8 ml/m\S\2 SV(MOD-bp) 40.8 ml SI(MOD-bp) 19.4 ml/m\S\2 SV(sp4-el) 41.6 ml SI(sp4-el) 19.8 ml/m\S\2 SV(sp2-el) 50.3 ml SI(sp2-el) 23.9 ml/m\S\2 Doppler Measurements and Calculations MV E max liv 69.8 cm/sec MV A max liv 42.7 cm/sec MV E/A 1.6 MV P1/2t max liv 84.6 cm/sec MV P1/2t 58.3 msec MVA(P1/2t) 3.8 cm\S\2 MV dec slope 424.7 cm/sec\S\2 MV dec time 0.24 sec Ao V2 max 84.1 cm/sec Ao max PG 2.8 mmHg Ao max PG (full) 0.91 mmHg LV V1 max PG 1.9 mmHg LV V1 max 69.3 cm/sec
[2017-11-18 13:22] LABS: PTT PATIENT 77.2 SECONDS (21.0-31.0)
--- NOTE | 2017-11-18 13:31 | Hospitalist Progress Note ---
Hospitalist Progress Note Date of Service Nov 18, 2017. (Stormy Beasley PA-C) Subjective Pt evaluation today including: conversation w/ patient, physical exam, chart review, lab review, review of studies, review of inpatient medication list Patient seen and evaluated. No acute events overnight. Is non-verbal. Makes minimal eye contact. No apparent distress noted. Breath sounds still course. Secretions seem to be gurgling in upper airways but does not follow commands to open mouth. Echo reveals PFO but no findings of heart strain other than mildly dilated R atrium. Given extensive DVTs his presentation could be consistent with possible PE but given he will be started on anticoagulation regardless a CTA would not change clinical course. Additional Comments: ROS deferred as patient is non-verbal and does not communicate by other means. (Stormy Beasley PA-C) Medications Current Inpatient Medications Medications (Trade) Dose Ordered Sig/Valerie Route Start Time Stop Time Status Last Admin Dose Admin Atorvastatin Calcium (Lipitor Tab) 20 mg HS PEG 11/16/17 21:00 12/16/17 20:59 11/17/17 20:56 20 MG Bisacodyl (Dulcolax Tab) 10 mg DAILY PRN GT 11/16/17 03:00 12/16/17 02:59 Carbamazepine (Tegretol Tab) 100 mg HS PEG 11/16/17 21:00 12/16/17 20:59 11/17/17 20:57 100 MG Citalopram Hydrobromide (celeXA TAB) 40 mg DAILY PEG 11/16/17 09:00 12/16/17 08:59 11/18/17 09:48 40 MG Insulin Glargine (Lantus Solostar Pen) 12 units QPM SQ 11/16/17 21:00 12/16/17 20:59 11/17/17 21:00 12 UNITS Lactobacillus Acidophilus (Floranex Tab) 4 tab TID PEG 11/16/17 09:00 12/16/17 08:59 11/18/17 12:40 4 TAB Nystatin (Mycostatin Susp) 5 ml Q8 PO 11/16/17 06:30 11/26/17 06:29 11/18/17 06:09 5 ML Carbamazepine (Tegretol Tab) 200 mg QID PEG 11/16/17 10:00 12/16/17 09:59 11/18/17 12:41 200 MG Sterile Water (Tube Feeding Water Flush) 1 ea Q6 PEG 11/16/17 06:00 12/16/17 05:59 11/18/17 12:40 1 EA Ipratropium [place] (Atrovent 0.02% 0.5MG/2.5ML Neb) 0.5 mg Q8R INH 11/16/17 08:00 12/16/17 07:59 11/18/17 07:18 0.5 MG Budesonide (Pulmicort Respules 0.5MG/ 2ML Neb Soln) 1 mg Q12R INH 11/16/17 09:30 12/16/17 09:29 11/17/17 22:50 1 MG Acetaminophen (Tylenol Tab) 650 mg Q4H PRN PO 11/16/17 03:30 12/16/17 03:29 Al Hydrox/Mg Hydrox/Simethicone (Maalox Max Susp) 15 ml Q4H PRN PO 11/16/17 03:30 12/16/17 03:29 Magnesium Hydroxide (Milk Of Magnesia Susp) 30 ml Q12H PRN PO 11/16/17 03:30 12/16/17 03:29 Ondansetron HCl (Zofran Inj) 4 mg Q6H PRN IV 11/16/17 03:30 12/16/17 03:29 Morphine Sulfate (MoRPHine SULFATE INJ) 2 mg Q30M PRN IV 11/16/17 03:30 11/30/17 03:29 Polyethylene (Miralax Powder Packet) 17 gm DAILY PRN PO 11/16/17 03:30 12/16/17 03:29 Insulin Aspart (novoLOG ASPART) SLIDING SCALE G... Q6H SC 11/16/17 07:00 12/16/17 06:59 11/18/17 13:06 2 UNITS Enteral Nutritional Formula (Fibersource Hn) 1,000 ml UD PEG 11/16/17 13:15 12/16/17 13:14 11/18/17 09:38 1,000 ML Warfarin Sodium (Coumadin Tab) 5 mg DAILY@16 PEG 11/17/17 16:00 12/17/17 15:59 11/17/17 16:27 5 MG Levetiracetam (Keppra Soln) 1,000 mg BID PEG 11/17/17 21:00 12/17/17 20:59 11/18/17 09:48 1,000 MG Amoxicillin/ Clavulanate Potassium (Augmentin Tab) 875 mg BIDM PO 11/17/17 16:45 11/24/17 16:44 11/18/17 09:45 875 MG Aspirin (Ecotrin Tab) 81 mg QAM PO 11/18/17 09:00 12/18/17 08:59 11/18/17 10:11 81 MG Enoxaparin Sodium (Lovenox 1 Mg/Kg) 1 ea Q12H SQ 11/18/17 13:00 12/18/17 12:59 UNV (Stormy Beasley PA-C) Objective Vital Signs Date Time Temp Pulse Resp B/P (MAP) Pulse Ox O2 Delivery O2 Flow Rate FiO2 11/18/17 08:00 Room Air 11/18/17 07:18 85 18 92 Room Air 11/18/17 06:52 37.0 63 20 142/81 (101) 93 Room Air 11/18/17 00:15 91 Room Air 11/17/17 22:58 37.0 69 18 119/78 (92) 91 Room Air 11/17/17 22:50 69 18 91 Room Air 11/17/17 17:22 37.1 63 16 143/83 (103) 94 Room Air 11/17/17 16:00 Room Air 11/17/17 15:36 36.9 90 18 133/73 (93) 96 11/17/17 14:42 71 18 94 Room Air (Stormy Beasley PA-C) Physical Exam Notes: General Appearance: WDWN in NAD who is alert but unable to assess mentation HEENT: Head is normocephalic/atraumatic Neck: Supple; Trachea midline; Neg JVD Heart: RRR with no M/G/R Lungs: Course breath sounds in all lung vasquez bilaterally; Respirations unlabored; Neg accessory muscle use; secretions sound high in airways but does not cooperate to open mouth Abdomen: Soft, non-tender, non-distended; Positive BS x 4 quadrants; PEG tube in place without erythema or drainage Extremities: Capillary refill < 2 seconds; Neg cyanosis or edema Neurological: Speech clear; Gross motor/sensory function intact; Neg focal neurologic deficits Psychiatric: Appropriate mood/affect Skin: Normal Color; Warm/Dry, small superficial abrasion to LLE with dressing in place (Stormy Beasley PA-C) Laboratory Results Last 24 Hours Test 11/17/17 17:48 11/17/17 23:46 11/18/17 05:51 11/18/17 06:03 Bedside Glucose 173 mg/dl 182 mg/dl 206 mg/dl White Blood Count 8.81 K/uL Red Blood Count 3.58 M/uL Hemoglobin 11.2 g/dL Hematocrit 34.8 % Mean Corpuscular Volume 97.2 fL Mean Corpuscular Hemoglobin 31.3 pg Mean Corpuscular Hemoglobin Concent 32.2 g/dl RDW Standard Deviation 48.5 fL RDW Coefficient of Variation 13.8 % Platelet Count 245 K/uL Mean Platelet Volume 10.1 fL Activated Partial Thromboplast Time 44.8 SECONDS Partial Thromboplastin Ratio 1.7 Sodium Level 138 mmol/L Potassium Level 3.6 mmol/L Chloride Level 103 mmol/L Carbon Dioxide Level 29 mmol/L Anion Gap 6.0 mmol/L Blood Urea Nitrogen 8 mg/dl Creatinine 0.62 mg/dl Est Creatinine Clear Calc Drug Dose 147.4 ml/min Estimated GFR () 125.0 Estimated GFR (Non- 107.8 BUN/Creatinine Ratio 12.6 Random Glucose 181 mg/dl Calcium Level 8.9 mg/dl Test 11/18/17 08:23 11/18/17 11:27 11/18/17 12:46 Prothrombin Time 10.3 SECONDS Prothromb Time International Ratio 1.0 Bedside Glucose 250 mg/dl (Stormy Beasley PA-C) Assessment and Plan Sepsis 2/2 Aspiration Pneumonia: IMPROVING - Has chronic PEG and was found supine with tube feeds gurgling - Converted to Augmentin BID and will continue for coverage - Maintain HOB elevations and check residuals with PEG; nutrition following for tube feeds and currently at goal feeds B/L Extensive DVTs: - Will switch to Lovenox injections for bridge to coumadin and trend INR - Echo obtained to R/O R heart strain - given presentation and known DVTs there is a chance he has PEs however will defer CT as this would not change current plan -- Echo without evidence of heart strain but presence of PFO H/O CVA with Seizure Disorder: - R hemiplegia, aphasia, dysphagia - MCA thrombosis - Atorvastatin 20 mg daily - ASA 81 mg daily - Tegretol 200 mg QID and 100 mg HS; Keppra 1000 mg BID COPD without Exacerbation: Unknown Severity - Pulmicort 1 mg BID; Atrovent nebs T2DM: - Lantus 12 units daily and sliding scale CKD Stage II: STABLE DVT Prophylaxis: Lovenox/Coumadin bridge Code Status: FULL RESUSCITATION Disposition: Resident of [facility]; No POA, family estranged - PT/OT - patient was placed as skilled needs and would need evals and auth to return - Pending placement patient would be medically suitable for D/C Discharge planning: [facility]pc facility (Stormy Beasley PA-C) Reviewed: Pt Seen/Exam by Me (Rosita Rdz, ) History Pt is stable per nursing. He is nonverbal. Nursing states no issues with TF. Agree with HPI/ROS as noted. (Rosita Rdz, DO) General Appearance: WD/WN, no apparent distress Eye Exam: bilateral eye normal inspection, bilateral eye other (normal sclera) Cardiovascular: normal peripheral pulses, regular rate, rhythm Gastrointestinal: non tender, soft Extremities: non-tender, no pedal edema Neurologic/Psychiatric: other (eyes are open but does not look at me when I speak with him or follow any commands) Skin Characteristics: normal color, warm/dry (Rosita Rdz, ) Assessment/Plan Agree with plan as outlined above Hypoxic on presentation and concern for TF aspiration Extensive LE DVT b/l ?? PE?? No CT done but this would not change current lovenox/coumadin management ECHO neg for RV strain making PE less likely Zosyn for likely aspiration PNA PT/OT pending for d/c options (Rosita Rdz, DO)
[2017-11-18] MEDS: ENOXAPARIN 80 MG/0.8 ML SYR SQ SCH ×2 (16:08→23:18)
[2017-11-18] MEDS: WARFARIN SOD 5 MG TAB PEG SCH (16:40)
[2017-11-18] MEDS: ATORVASTATIN 20 MG TAB PEG SCH (20:59)
[2017-11-18] MEDS: INSULIN GLARGINE SOLOSTAR 100 UNITS/ML 3 ML PEN SQ SCH (21:23)
[2017-11-19] VITALS (7 sets, daily range): BP systolic 141–144; BP diastolic 73–93; PULSE 59–67; TEMP 36.8–37.1; O2SAT 90–96
[2017-11-19] MEDS: TUBE FEEDING WATER FLUSH PEG SCH ×4 (00:05→18:06)
[2017-11-19] MEDS: INSULIN ASPART 100 UNITS/ML 3 ML PEN SC SCH ×4 (00:11→18:00)
[2017-11-19] MEDS: FIBERSOURCE HN 1000ML BAG PEG SCH ×2 (02:28→09:32)
[2017-11-19 05:13] LABS: PTT PATIENT 28.9 SECONDS (21.0-31.0)
[2017-11-19] MEDS: NYSTATIN SUSP 500,000 U/5 ML UDC PO SCH ×3 (06:19→22:22)
[2017-11-19] MEDS: IPRATROPIUM BROMIDE NEB SOLN 0.02% 2.5 ML VIAL INH SCH ×3 (07:03→23:10)
[2017-11-19] MEDS: BUDESONIDE 0.5 MG/2 ML VIAL (PULMICORT) INH SCH ×2 (07:03→19:51)
[2017-11-19] MEDS: CARBAMAZEPINE 200 MG TAB PEG SCH ×5 (09:33→20:11)
[2017-11-19] MEDS: ASPIRIN 81 MG ECTAB PO SCH (09:33)
[2017-11-19] MEDS: AMOXICILLIN/CLAVULANATE TAB 875 MG TAB PO SCH ×2 (09:33→16:37)
[2017-11-19] MEDS: LEVETIRACETAM ORAL SOLN 100MG/ML PEG SCH ×2 (09:35→20:06)
[2017-11-19] MEDS: LACTOBACILLUS ACIDOPHILUS (FLORANEX) TAB PEG SCH ×3 (09:36→20:05)
[2017-11-19] MEDS: CITALOPRAM 40 MG TAB PEG SCH (09:36)
[2017-11-19] MEDS: ENOXAPARIN 80 MG/0.8 ML SYR SQ SCH ×2 (10:58→22:22)
--- NOTE | 2017-11-19 14:52 | Hospitalist Progress Note ---
Hospitalist Progress Note Date of Service Nov 19, 2017. (Stormy Beasley, BOUBACAR) Subjective Pt evaluation today including: physical exam, chart review, lab review, review of studies, review of inpatient medication list Patient seen and evaluated. No acute events overnight. Patient is non-verbal and very minimally interactive today. Looked out the window during the whole visit. Was more interactive with nursing this AM. Feedings remain at goal. Awaiting PT/ OT evals to get approval for him to return back to [facility]. Additional Comments: ROS deferred as he is non-verbal and is not communicating by other means. (Stormy Beasley, KACYC) Medications Current Inpatient Medications Medications (Trade) Dose Ordered Sig/Valerie Route Start Time Stop Time Status Last Admin Dose Admin Atorvastatin Calcium (Lipitor Tab) 20 mg HS PEG 11/16/17 21:00 12/16/17 20:59 11/18/17 20:59 20 MG Bisacodyl (Dulcolax Tab) 10 mg DAILY PRN GT 11/16/17 03:00 12/16/17 02:59 Carbamazepine (Tegretol Tab) 100 mg HS PEG 11/16/17 21:00 12/16/17 20:59 11/18/17 21:01 100 MG Citalopram Hydrobromide (celeXA TAB) 40 mg DAILY PEG 11/16/17 09:00 12/16/17 08:59 11/19/17 09:36 40 MG Insulin Glargine (Lantus Solostar Pen) 12 units QPM SQ 11/16/17 21:00 12/16/17 20:59 11/18/17 21:23 12 UNITS Lactobacillus Acidophilus (Floranex Tab) 4 tab TID PEG 11/16/17 09:00 12/16/17 08:59 11/19/17 13:05 4 TAB Nystatin (Mycostatin Susp) 5 ml Q8 PO 11/16/17 06:30 11/26/17 06:29 11/19/17 06:19 5 ML Carbamazepine (Tegretol Tab) 200 mg QID PEG 11/16/17 10:00 12/16/17 09:59 11/19/17 13:06 200 MG Sterile Water (Tube Feeding Water Flush) 1 ea Q6 PEG 11/16/17 06:00 12/16/17 05:59 11/19/17 12:07 1 EA Ipratropium [place] (Atrovent 0.02% 0.5MG/2.5ML Neb) 0.5 mg Q8R INH 11/16/17 08:00 12/16/17 07:59 11/19/17 07:03 0.5 MG Budesonide (Pulmicort Respules 0.5MG/ 2ML Neb Soln) 1 mg Q12R INH 11/16/17 09:30 12/16/17 09:29 11/19/17 07:03 1 MG Acetaminophen (Tylenol Tab) 650 mg Q4H PRN PO 11/16/17 03:30 12/16/17 03:29 Al Hydrox/Mg Hydrox/Simethicone (Maalox Max Susp) 15 ml Q4H PRN PO 11/16/17 03:30 12/16/17 03:29 Magnesium Hydroxide (Milk Of Magnesia Susp) 30 ml Q12H PRN PO 11/16/17 03:30 12/16/17 03:29 Ondansetron HCl (Zofran Inj) 4 mg Q6H PRN IV 11/16/17 03:30 12/16/17 03:29 Morphine Sulfate (MoRPHine SULFATE INJ) 2 mg Q30M PRN IV 11/16/17 03:30 11/30/17 03:29 Polyethylene (Miralax Powder Packet) 17 gm DAILY PRN PO 11/16/17 03:30 12/16/17 03:29 Insulin Aspart (novoLOG ASPART) SLIDING SCALE G... Q6H SC 11/16/17 07:00 12/16/17 06:59 11/19/17 12:10 1 UNITS Enteral Nutritional Formula (Fibersource Hn) 1,000 ml UD PEG 11/16/17 13:15 12/16/17 13:14 11/19/17 09:32 1,000 ML Warfarin Sodium (Coumadin Tab) 5 mg DAILY@16 PEG 11/17/17 16:00 12/17/17 15:59 11/18/17 16:40 5 MG Levetiracetam (Keppra Soln) 1,000 mg BID PEG 11/17/17 21:00 12/17/17 20:59 11/19/17 09:35 1,000 MG Amoxicillin/ Clavulanate Potassium (Augmentin Tab) 875 mg BIDM PO 11/17/17 16:45 11/24/17 16:44 11/19/17 09:33 875 MG Aspirin (Ecotrin Tab) 81 mg QAM PO 11/18/17 09:00 12/18/17 08:59 11/19/17 09:33 81 MG Enoxaparin Sodium (Lovenox Inj) 80 mg Q12@1100,2300 SQ 11/18/17 14:00 12/18/17 13:59 11/19/17 10:58 80 MG (Stormy Beasley PA-C) Objective Vital Signs Date Time Temp Pulse Resp B/P (MAP) Pulse Ox O2 Delivery O2 Flow Rate FiO2 11/19/17 08:00 Room Air 11/19/17 07:12 36.8 67 20 141/93 (109) 96 Room Air 11/19/17 07:05 66 18 94 Room Air 11/19/17 00:00 Room Air 11/18/17 23:34 37.2 111 20 120/76 (91) 92 Room Air 11/18/17 23:11 81 18 92 Room Air 11/18/17 19:00 Room Air 11/18/17 16:06 37.1 65 20 146/74 (98) 92 Room Air 11/18/17 16:00 Room Air 11/18/17 15:26 75 18 92 Room Air (Stormy Beasley PA-C) Physical Exam Notes: General Appearance: WDWN in NAD who is alert HEENT: Head is normocephalic/atraumatic Neck: Supple; Trachea midline; Neg JVD Heart: RRR with no M/G/R Lungs: Aeration seems to be improving still course in anterior chest; Respirations unlabored; Neg accessory muscle use Abdomen: Soft, non-tender, non-distended; Positive BS x 4 quadrants; PEG tube placed without erythema Extremities: chronic rfitz of b/l lower extremities Neurological: Flaccid R side Psychiatric: flat affect; no eye contact today but staring outside the window Skin: Normal Color; Warm/Dry (Stormy Beasley PA-C) Laboratory Results Last 24 Hours Test 11/18/17 17:54 11/19/17 00:01 11/19/17 04:48 11/19/17 06:09 Bedside Glucose 173 mg/dl 221 mg/dl 208 mg/dl Activated Partial Thromboplast Time 28.9 SECONDS Partial Thromboplastin Ratio 1.1 Test 11/19/17 11:36 Bedside Glucose 209 mg/dl (Stormy Beasley PA-C) Assessment and Plan Sepsis 2/2 Aspiration Pneumonia: IMPROVING - Has chronic PEG and was found supine with tube feeds gurgling - Converted to Augmentin BID and will continue for coverage for 10 day total - can D/C antibiotics on 11/25. - Maintain HOB elevations and check residuals with PEG; nutrition following for tube feeds and currently at goal feeds B/L Extensive DVTs: - Will switch to Lovenox injections for bridge to coumadin and trend INR - Echo obtained to R/O R heart strain - given presentation and known DVTs there is a chance he has PEs however will defer CT as this would not change current plan -- Echo without evidence of significant heart strain - has evidence of mildly dilated R atrium and ventricle; presence of PFO H/O CVA with Seizure Disorder: STABLE - R hemiplegia, aphasia, dysphagia - MCA thrombosis - Atorvastatin 20 mg daily - ASA 81 mg daily - Tegretol 200 mg QID and 100 mg HS; Keppra 1000 mg BID COPD without Exacerbation: Unknown Severity - Pulmicort 1 mg BID; Atrovent nebs T2DM: - Lantus 12 units daily and sliding scale CKD Stage II: STABLE DVT Prophylaxis: Lovenox/Coumadin bridge Code Status: FULL RESUSCITATION Disposition: Resident of [facility]; No POA, family estranged - PT/OT evaluations - Patient was sent to [facility] under skilled and will need PT/OT evaluations to go back as skilled; if cannot go as skilled will need to explore other option -- Unsure of patient's functional ability but is unable to follow commands most of the time Discharge planning: nursing home facility (Stormy Beasley PA-C) Reviewed: Pt Seen/Exam by Me (Rosita Rdz DO) History Nursing states that pt stated "hurt" when she was manipulating his PEG tube. WCN looked at PEG yesterday and no issues, nursing states it has not changed in appearance since that time and this is the first that pt has mentioned this. It is functioning without issue. Tolerating TF. Unable to obtain ROS due to pt 's mostly nonverbal status. Agree with HPI/ROS as noted by PA. (Rosita Rdz, DO) General Appearance: WD/WN, no apparent distress Eye Exam: bilateral eye normal inspection, bilateral eye other (normal sclera) Respiratory: normal breath sounds, no respiratory distress Cardiovascular: normal peripheral pulses, regular rate, rhythm Gastrointestinal: non tender, soft Extremities: non-tender, no pedal edema Neurologic/Psychiatric: alert (opens eyes but does not interact or look at me) , normal mood/affect Skin Characteristics: normal color, warm/dry (Rosita Rdz, DO) Assessment/Plan Agree with plan as outlined above Hypoxic on presentation and concern for TF aspiration Extensive LE DVT b/l ?? PE?? No CT done but this would not change current lovenox/coumadin management ECHO neg for RV strain making PE less likely Zosyn for likely aspiration PNA PT/OT pending for d/c options (Rosita Rdz, DO)
[2017-11-19] MEDS: WARFARIN SOD 5 MG TAB PEG SCH (16:37)
[2017-11-19] MEDS: ATORVASTATIN 20 MG TAB PEG SCH (20:04)
[2017-11-19] MEDS: INSULIN GLARGINE SOLOSTAR 100 UNITS/ML 3 ML PEN SQ SCH (21:09)
[2017-11-20] VITALS (8 sets, daily range): BP systolic 119–149; BP diastolic 76–80; PULSE 60–87; TEMP 36.4–37.2; O2SAT 92–98
[2017-11-20] MEDS: INSULIN ASPART 100 UNITS/ML 3 ML PEN SC SCH ×5 (00:25→23:49)
[2017-11-20] MEDS: TUBE FEEDING WATER FLUSH PEG SCH ×5 (00:25→23:51)
[2017-11-20] MEDS: FIBERSOURCE HN 1000ML BAG PEG SCH ×2 (03:58→19:32)
[2017-11-20 04:53] LABS: HEMATOCRIT 35.6 % (42-52); HEMOGLOBIN 11.5 g/dL (14.0-18.0); MEAN CELL VOLUME 97.8 fL (80-100); MEAN CORPUSCULAR HEMOGLOBIN 31.6 pg (25-34); MEAN PLATELET VOLUME 9.8 fL (7.4-10.4); PLATELET COUNT 267 K/uL (130-400); RED CELL DISTRIBUTION WIDTH CV 13.8 % (11.5-14.5); RED CELL DISTRIBUTION WIDTH SD 48.9 fL (36.4-46.3); WHITE BLOOD COUNT 8.16 K/uL (4.8-10.8)
[2017-11-20 05:14] LABS: INR 1.8 (0.9-1.1); PTT PATIENT 30.7 SECONDS (21.0-31.0)
[2017-11-20 05:20] LABS: MEAN CORPUSCULAR HGB CONC 32.3 g/dl (32-36)
[2017-11-20] MEDS: NYSTATIN SUSP 500,000 U/5 ML UDC PO SCH ×3 (05:52→22:14)
[2017-11-20] MEDS: IPRATROPIUM BROMIDE NEB SOLN 0.02% 2.5 ML VIAL INH SCH ×3 (07:22→23:27)
[2017-11-20] MEDS: BUDESONIDE 0.5 MG/2 ML VIAL (PULMICORT) INH SCH ×2 (07:22→19:33)
[2017-11-20] MEDS: AMOXICILLIN/CLAVULANATE TAB 875 MG TAB PO SCH ×2 (08:10→16:40)
[2017-11-20] MEDS: ASPIRIN 81 MG ECTAB PO SCH (08:10)
[2017-11-20] MEDS: LACTOBACILLUS ACIDOPHILUS (FLORANEX) TAB PEG SCH ×3 (08:11→22:14)
[2017-11-20] MEDS: CARBAMAZEPINE 200 MG TAB PEG SCH ×5 (08:11→22:15)
[2017-11-20] MEDS: CITALOPRAM 40 MG TAB PEG SCH (08:12)
[2017-11-20] MEDS: LEVETIRACETAM ORAL SOLN 100MG/ML PEG SCH ×2 (08:12→22:14)
[2017-11-20] MEDS: ENOXAPARIN 80 MG/0.8 ML SYR SQ SCH ×2 (10:38→22:33)
[2017-11-20] MEDS: WARFARIN SOD 5 MG TAB PEG SCH (16:28)
[2017-11-20] MEDS: INSULIN GLARGINE SOLOSTAR 100 UNITS/ML 3 ML PEN SQ SCH (22:13)
[2017-11-20] MEDS: ATORVASTATIN 20 MG TAB PEG SCH (22:14)
--- NOTE | 2017-11-20 23:51 | Progress Note ---
Subjective Date of Service: Nov 20, 2017. Subjective Pt evaluation today including: chart review, lab review, review of studies Patient seen and evaluated. No acute events overnight. Patient is non-verbal and very minimally interactive today. Looked out the window during the whole visit. Problem List Medical Problems: (1) Sepsis Status: Acute Review of Systems General Appearance: WDWN in NAD who is alert HEENT: Head is normocephalic/atraumatic Neck: Supple; Trachea midline; Neg JVD Heart: RRR with no M/G/R Lungs: Aeration seems to be improving still course in anterior chest; Respirations unlabored; Neg accessory muscle use Abdomen: Soft, non-tender, non-distended; Positive BS x 4 quadrants; PEG tube placed without erythema Extremities: chronic fritz of b/l lower extremities Neurological: Flaccid R side Psychiatric: flat affect; no eye contact today but staring outside the window Skin: Normal Color; Warm/Dry Objective Vital Signs Date Time Temp Pulse Resp B/P (MAP) Pulse Ox O2 Delivery O2 Flow Rate FiO2 11/20/17 19:34 87 18 92 Room Air 11/20/17 15:30 Room Air 11/20/17 15:13 36.4 60 18 135/80 (98) 95 Room Air 11/20/17 15:06 68 18 92 Room Air 11/20/17 08:10 93 Room Air 11/20/17 07:23 79 18 93 Room Air 11/20/17 07:05 36.5 74 20 149/78 (101) 98 Room Air 11/19/17 23:50 37.0 66 20 144/82 (102) 92 Room Air 11/19/17 23:09 66 18 92 Room Air Physical Exam Comments: General Appearance: WDWN in NAD who is alert HEENT: Head is normocephalic/atraumatic Neck: Supple; Trachea midline; Neg JVD Heart: RRR with no M/G/R Lungs: Aeration seems to be improving still course in anterior chest; Respirations unlabored; Neg accessory muscle use Abdomen: Soft, non-tender, non-distended; Positive BS x 4 quadrants; PEG tube placed without erythema Extremities: chronic fritz of b/l lower extremities Neurological: Flaccid R side Psychiatric: flat affect; no eye contact today but staring outside the window Skin: Normal Color; Warm/Dry Laboratory Results Last 24 Hours Test 11/20/17 00:14 11/20/17 04:44 11/20/17 05:47 11/20/17 12:01 Bedside Glucose 261 mg/dl 220 mg/dl 193 mg/dl White Blood Count 8.16 K/uL Red Blood Count 3.64 M/uL Hemoglobin 11.5 g/dL Hematocrit 35.6 % Mean Corpuscular Volume 97.8 fL Mean Corpuscular Hemoglobin 31.6 pg Mean Corpuscular Hemoglobin Concent 32.3 g/dl RDW Standard Deviation 48.9 fL RDW Coefficient of Variation 13.8 % Platelet Count 267 K/uL Mean Platelet Volume 9.8 fL Prothrombin Time 19.1 SECONDS Prothromb Time International Ratio 1.8 Activated Partial Thromboplast Time 30.7 SECONDS Partial Thromboplastin Ratio 1.2 Test 11/20/17 18:01 Bedside Glucose 200 mg/dl Assessment and Plan Sepsis 2/ Aspiration Pneumonia: IMPROVING - Has chronic PEG and was found supine with tube feeds gurgling - Converted to Augmentin BID and will continue for coverage for 10 day total - can D/C antibiotics on 11/25. - Maintain HOB elevations and check residuals with PEG; nutrition following for tube feeds and currently at goal feeds B/L Extensive DVTs: - Will switch to Lovenox injections for bridge to coumadin and trend INR - Echo obtained to R/O R heart strain - given presentation and known DVTs there is a chance he has PEs however will defer CT as this would not change current plan -- Echo without evidence of significant heart strain - has evidence of mildly dilated R atrium and ventricle; presence of PFO H/O CVA with Seizure Disorder: STABLE - R hemiplegia, aphasia, dysphagia - MCA thrombosis - Atorvastatin 20 mg daily - ASA 81 mg daily - Tegretol 200 mg QID and 100 mg HS; Keppra 1000 mg BID COPD without Exacerbation: Unknown Severity - Pulmicort 1 mg BID; Atrovent nebs T2DM: - Lantus 12 units daily and sliding scale CKD Stage II: STABLE DVT Prophylaxis: Lovenox/Coumadin bridge Code Status: FULL RESUSCITATION Disposition: Resident of [facility]; No POA, family estranged - PT/OT evaluations - Patient was sent to [facility] under skilled and will need PT/OT evaluations to go back as skilled; if cannot go as skilled will need to explore other option -- Unsure of patient's functional ability but is unable to follow commands most of the time Continued [facility] stay due to: multiple IV medications needed Discharge planning: longterm facility
[2017-11-21 05:18] LABS: MEAN CELL VOLUME 97.9 fL (80-100); MEAN CORPUSCULAR HEMOGLOBIN 31.7 pg (25-34); MEAN CORPUSCULAR HGB CONC 32.4 g/dl (32-36); MEAN PLATELET VOLUME 10.1 fL (7.4-10.4); PLATELET COUNT 298 K/uL (130-400); RED CELL DISTRIBUTION WIDTH SD 49.1 fL (36.4-46.3); WHITE BLOOD COUNT 8.56 K/uL (4.8-10.8)
[2017-11-21 05:29] LABS: INR 2.5 (0.9-1.1); PTT PATIENT 33.2 SECONDS (21.0-31.0)
[2017-11-21 05:38] LABS: CREATININE 0.71 mg/dl (0.60-1.40)
[2017-11-21 06:55] VITALS: BP 126/76; PULSE 63; TEMP 37.1; O2SAT 98
[2017-11-21] MEDS: BUDESONIDE 0.5 MG/2 ML VIAL (PULMICORT) INH SCH ×2 (07:38→19:19)
[2017-11-21] MEDS: IPRATROPIUM BROMIDE NEB SOLN 0.02% 2.5 ML VIAL INH SCH ×3 (07:38→19:18)
[2017-11-21] MEDS: AMOXICILLIN/CLAVULANATE TAB 875 MG TAB PO SCH ×2 (08:17→16:34)
[2017-11-21] MEDS: TUBE FEEDING WATER FLUSH PEG SCH ×4 (08:17→23:35)
[2017-11-21] MEDS: LACTOBACILLUS ACIDOPHILUS (FLORANEX) TAB PEG SCH ×3 (08:18→20:59)
[2017-11-21] MEDS: NYSTATIN SUSP 500,000 U/5 ML UDC PO SCH ×4 (08:18→21:01)
[2017-11-21] MEDS: CITALOPRAM 40 MG TAB PEG SCH (08:19)
[2017-11-21] MEDS: CARBAMAZEPINE 200 MG TAB PEG SCH ×5 (08:19→21:02)
[2017-11-21] MEDS: LEVETIRACETAM ORAL SOLN 100MG/ML PEG SCH ×2 (08:20→20:59)
[2017-11-21] MEDS: ASPIRIN 81 MG ECTAB PO SCH (08:20)
[2017-11-21] MEDS: INSULIN ASPART 100 UNITS/ML 3 ML PEN SC SCH ×3 (09:25→17:56)
--- NOTE | 2017-11-21 10:59 | Progress Note ---
Subjective Date of Service: Nov 21, 2017. Subjective Pt evaluation today including: physical exam, chart review, lab review, review of inpatient medication list Voiding: no voiding problems Pt denies any complain, aphasic looks comfortable, need pt/ot to do evaluation Problem List Medical Problems: (1) Sepsis Status: Acute Review of Systems General Appearance: WDWN in NAD who is alert HEENT: Head is normocephalic/atraumatic Neck: Supple; Trachea midline; Neg JVD Heart: RRR with no M/G/R Lungs: Aeration seems to be improving still course in anterior chest; Respirations unlabored; Neg accessory muscle use Abdomen: Soft, non-tender, non-distended; Positive BS x 4 quadrants; PEG tube placed without erythema Extremities: chronic fritz of b/l lower extremities Neurological: Flaccid R side Psychiatric: flat affect; no eye contact today but staring outside the window Skin: Normal Color; Warm/Dry Objective Vital Signs Date Time Temp Pulse Resp B/P (MAP) Pulse Ox O2 Delivery O2 Flow Rate FiO2 11/21/17 08:15 Room Air 11/21/17 06:55 37.1 63 20 126/76 (93) 98 Room Air 11/20/17 23:45 37.2 67 20 119/76 (90) 92 Room Air 11/20/17 23:27 69 18 93 Room Air 11/20/17 19:34 87 18 92 Room Air 11/20/17 15:30 Room Air 11/20/17 15:13 36.4 60 18 135/80 (98) 95 Room Air 11/20/17 15:06 68 18 92 Room Air Physical Exam Comments: General Appearance: WDWN in NAD who is alert HEENT: Head is normocephalic/atraumatic Neck: Supple; Trachea midline; Neg JVD Heart: RRR with no M/G/R Lungs: Aeration seems to be improving still course in anterior chest; Respirations unlabored; Neg accessory muscle use Abdomen: Soft, non-tender, non-distended; Positive BS x 4 quadrants; PEG tube placed without erythema Extremities: chronic fritz of b/l lower extremities Neurological: Flaccid R side Psychiatric: flat affect; no eye contact today but staring outside the window Skin: Normal Color; Warm/Dry Laboratory Results Last 24 Hours Test 2/3/18 12:01 11/20/17 18:01 11/20/17 23:44 11/21/17 04:54 Bedside Glucose 193 mg/dl 200 mg/dl 215 mg/dl White Blood Count 8.56 K/uL Red Blood Count 3.78 M/uL Hemoglobin 12.0 g/dL Hematocrit 37.0 % Mean Corpuscular Volume 97.9 fL Mean Corpuscular Hemoglobin 31.7 pg Mean Corpuscular Hemoglobin Concent 32.4 g/dl RDW Standard Deviation 49.1 fL RDW Coefficient of Variation 14.0 % Platelet Count 298 K/uL Mean Platelet Volume 10.1 fL Prothrombin Time 25.8 SECONDS Prothromb Time International Ratio 2.5 Activated Partial Thromboplast Time 33.2 SECONDS Partial Thromboplastin Ratio 1.3 Creatinine 0.71 mg/dl Est Creatinine Clear Calc Drug Dose 128.6 ml/min Estimated GFR () 118.2 Estimated GFR (Non- 102.0 Test 11/21/17 06:19 Bedside Glucose 221 mg/dl Assessment and Plan Sepsis 2/2 Aspiration Pneumonia: IMPROVING - Has chronic PEG and was found supine with tube feeds gurgling - Converted to Augmentin BID and will continue for coverage for 10 day total - can D/C antibiotics on 11/25. - Maintain HOB elevations and no residuals with PEG as per nurse; nutrition following for tube feeds and currently at goal feeds B/L Extensive DVTs: - Will switch to Lovenox injections for bridge to coumadin and trend INR- INR is therapeutic - continue with same dose of warfarin 5 mg po daily. - Echo obtained to R/O R heart strain - given presentation and known DVTs there is a chance he has PEs however will defer CT as this would not change current plan -- Echo without evidence of significant heart strain - has evidence of mildly dilated R atrium and ventricle; presence of PFO H/O CVA with Seizure Disorder: STABLE - R hemiplegia, aphasia, dysphagia - MCA thrombosis - Atorvastatin 20 mg daily - ASA 81 mg daily - Tegretol 200 mg QID and 100 mg HS; Keppra 1000 mg BID COPD without Exacerbation: Unknown Severity - Pulmicort 1 mg BID; Atrovent nebs T2DM: - Lantus 12 units daily and sliding scale CKD Stage II: STABLE DVT Prophylaxis: Lovenox/Coumadin bridge Code Status: FULL RESUSCITATION Disposition: Resident of [facility]; No POA, family estranged - PT/OT evaluations - Patient was sent to [facility] under skilled and will need PT/OT evaluations to go back as skilled; if cannot go as skilled will need to explore other option -- Unsure of patient's functional ability but is unable to follow commands most of the time Continued [facility] stay due to: multiple IV medications needed Discharge planning: [facility] facility
[2017-11-21] MEDS: ENOXAPARIN 80 MG/0.8 ML SYR SQ SCH ×2 (11:29→21:37)
[2017-11-21] MEDS: FIBERSOURCE HN 1000ML BAG PEG SCH (11:37)
[2017-11-21 14:46] VITALS: BP 126/81; PULSE 70; TEMP 37.2; O2SAT 99
[2017-11-21 15:24] VITALS: PULSE 76; O2SAT 90
[2017-11-21] MEDS: WARFARIN SOD 5 MG TAB PEG SCH (16:35)
[2017-11-21] MEDS ORDERED: NURSING VERBAL MED ORDER ONE (18:30)
[2017-11-21] MEDS ORDERED: BUDESONIDE 0.5 MG/2 ML VIAL (PULMICORT) INH ONE (18:45)
[2017-11-21 19:24] VITALS: PULSE 72; O2SAT 94
[2017-11-21] MEDS: ATORVASTATIN 20 MG TAB PEG SCH (21:00)
[2017-11-21] MEDS: INSULIN GLARGINE SOLOSTAR 100 UNITS/ML 3 ML PEN SQ SCH (21:37)
[2017-11-21 22:53] VITALS: BP 106/71; PULSE 81; TEMP 37.2; O2SAT 91
[2017-11-22] VITALS (7 sets, daily range): BP systolic 99–116; BP diastolic 66–77; PULSE 69–85; TEMP 36.6–37.4; O2SAT 91–93
[2017-11-22 04:53] LABS: HEMATOCRIT 38.5 % (42-52); HEMOGLOBIN 12.4 g/dL (14.0-18.0); MEAN CELL VOLUME 98.5 fL (80-100); MEAN CORPUSCULAR HEMOGLOBIN 31.7 pg (25-34); MEAN PLATELET VOLUME 10.3 fL (7.4-10.4); PLATELET COUNT 312 K/uL (130-400); RED CELL DISTRIBUTION WIDTH CV 14.2 % (11.5-14.5); RED CELL DISTRIBUTION WIDTH SD 50.3 fL (36.4-46.3); WHITE BLOOD COUNT 12.14 K/uL (4.8-10.8)
[2017-11-22 05:03] LABS: INR 3.1 (0.9-1.1)
[2017-11-22 05:08] LABS: MEAN CORPUSCULAR HGB CONC 32.2 g/dl (32-36)
[2017-11-22] MEDS: NYSTATIN SUSP 500,000 U/5 ML UDC PO SCH ×4 (06:19→20:53)
[2017-11-22] MEDS: TUBE FEEDING WATER FLUSH PEG SCH ×3 (06:20→17:56)
[2017-11-22] MEDS: INSULIN ASPART 100 UNITS/ML 3 ML PEN SC SCH ×4 (06:26→18:36)
[2017-11-22] MEDS: BUDESONIDE 0.5 MG/2 ML VIAL (PULMICORT) INH SCH ×2 (07:03→23:58)
[2017-11-22] MEDS: IPRATROPIUM BROMIDE NEB SOLN 0.02% 2.5 ML VIAL INH SCH ×3 (07:03→23:58)
[2017-11-22] MEDS: CARBAMAZEPINE 200 MG TAB PEG SCH ×5 (07:42→20:31)
[2017-11-22] MEDS: AMOXICILLIN/CLAVULANATE TAB 875 MG TAB PO SCH ×2 (07:43→16:36)
[2017-11-22] MEDS: LACTOBACILLUS ACIDOPHILUS (FLORANEX) TAB PEG SCH ×3 (07:43→20:28)
[2017-11-22] MEDS: ASPIRIN 81 MG ECTAB PO SCH (07:43)
[2017-11-22] MEDS: LEVETIRACETAM ORAL SOLN 100MG/ML PEG SCH ×2 (07:43→20:31)
[2017-11-22] MEDS: CITALOPRAM 40 MG TAB PEG SCH (07:43)
--- NOTE | 2017-11-22 15:57 | Hospitalist Progress Note ---
Hospitalist Progress Note Date of Service Nov 22, 2017. (Sonali Arreguin CRNP) Subjective Pt evaluation today including: conversation w/ patient, physical exam, chart review, lab review, review of inpatient medication list Voiding: no voiding problems Mr. Bergman is non verbal and unable to provide ROS (Sonali Arreguin CRNP) Medications Medications Administered Medications (Trade) Dose Ordered Sig/Valerie Route Start Time Stop Time Status Last Admin Dose Admin Piperacillin Sod/ Tazobactam Sod (Zosyn Iv) 4.5 gm NOW STAT IV 11/16/17 00:53 11/16/17 00:54 DC 11/16/17 01:05 4.5 GM Sodium Chloride 1,000 ml @ 250 mls/hr Q4H STAT IV 11/16/17 01:49 11/16/17 04:47 DC 11/16/17 01:52 250 MLS/HR Sodium Chloride 1,000 ml @ 999 mls/hr Q1H1M STAT IV 11/16/17 01:49 11/16/17 02:49 DC 11/16/17 01:52 999 MLS/HR Atorvastatin Calcium (Lipitor Tab) 20 mg HS PEG 11/16/17 21:00 12/16/17 20:59 11/21/17 21:00 20 MG Carbamazepine (Tegretol Tab) 100 mg HS PEG 11/16/17 21:00 12/16/17 20:59 11/21/17 21:01 100 MG Citalopram Hydrobromide (celeXA TAB) 40 mg DAILY PEG 11/16/17 09:00 12/16/17 08:59 11/22/17 07:43 40 MG Insulin Glargine (Lantus Solostar Pen) 12 units QPM SQ 11/16/17 21:00 12/16/17 20:59 11/21/17 21:37 12 UNITS Lactobacillus Acidophilus (Floranex Tab) 4 tab TID PEG 11/16/17 09:00 12/16/17 08:59 11/22/17 12:54 4 TAB Levetiracetam (Keppra Soln) 1,000 mg BID PEG 11/16/17 09:00 11/17/17 14:03 DC 11/17/17 07:40 1,000 MG Nystatin (Mycostatin Susp) 5 ml Q8 PO 11/16/17 06:30 11/26/17 06:29 11/22/17 12:53 5 ML Carbamazepine (Tegretol Tab) 200 mg QID PEG 11/16/17 10:00 12/16/17 09:59 11/22/17 12:54 200 MG Sterile Water (Tube Feeding Water Flush) 1 ea Q6 PEG 11/16/17 06:00 12/16/17 05:59 11/22/17 12:13 1 EA Piperacillin Sod/ Tazobactam Sod 3.375 gm/Dextrose 115 ml @ 28.75 mls/ hr Q8H IV 11/16/17 06:00 11/17/17 15:45 DC 11/17/17 13:34 28.75 MLS/HR Ipratropium [place] (Atrovent 0.02% 0.5MG/2.5ML Neb) 0.5 mg Q8R INH 11/16/17 08:00 12/16/17 07:59 11/22/17 15:32 0.5 MG Budesonide (Pulmicort Respules 0.5MG/ 2ML Neb Soln) 1 mg Q12R INH 11/16/17 09:30 12/16/17 09:29 11/22/17 07:03 1 MG Sodium Chloride 1,000 ml @ 100 mls/hr Q10H IV 11/16/17 03:15 11/16/17 13:14 DC 11/16/17 06:16 100 MLS/HR Heparin Sodium (Porcine) (Heparin Sq 5000 Unit/0.5ml) 5,000 unit Q8H SQ 11/16/17 07:00 11/16/17 17:28 DC 11/16/17 15:55 5,000 UNIT Insulin Aspart (novoLOG ASPART) SLIDING SCALE G... Q6H SC 11/16/17 07:00 12/16/17 06:59 11/22/17 12:58 1 UNITS Enteral Nutritional Formula (Fibersource Hn) 1,000 ml UD PEG 11/16/17 13:15 12/16/17 13:14 11/21/17 11:37 1,000 ML Heparin Sodium (Porcine) 7000 unit/Syringe 7 ml @ 10 mls/min 1745 IV 11/16/17 17:45 11/16/17 18:30 DC 11/16/17 17:58 10 MLS/MIN Heparin Sodium/ Dextrose 500 ml @ 30 mls/hr [id number] PRN IV 11/16/17 17:30 11/18/17 12:55 DC 11/18/17 06:55 30 MLS/HR Warfarin Sodium (Coumadin Tab) 5 mg DAILY@16 PEG 11/17/17 16:00 12/17/17 15:59 11/21/17 16:35 5 MG Albuterol Sulfate (Ventolin 0.083% 2.5MG/3ML Neb) 2.5 mg ONE STAT INH 11/17/17 06:29 11/17/17 06:30 DC 11/17/17 06:29 2.5 MG Levetiracetam (Keppra Soln) 1,000 mg BID PEG 11/17/17 21:00 12/17/17 20:59 11/22/17 07:43 1,000 MG Amoxicillin/ Clavulanate Potassium (Augmentin Tab) 875 mg BIDM PO 11/17/17 16:45 11/24/17 16:44 11/22/17 07:43 875 MG Aspirin (Ecotrin Tab) 81 mg QAM PO 11/18/17 09:00 12/18/17 08:59 11/22/17 07:43 81 MG Heparin Sodium (Porcine) 3000 unit/Syringe 3 ml @ 10 mls/min NOW ONCE IV 11/18/17 07:00 11/18/17 07:01 DC 11/18/17 10:10 10 MLS/MIN Enoxaparin Sodium (Lovenox Inj) 80 mg Q12@1100,2300 SQ 11/18/17 14:00 11/22/17 09:10 DC 11/21/17 21:37 80 MG (Sonali Arreguin, ZAYRA) Objective Vital Signs Date Time Temp Pulse Resp B/P (MAP) Pulse Ox O2 Delivery O2 Flow Rate FiO2 11/22/17 15:34 78 18 92 Room Air 11/22/17 14:53 36.6 69 18 99/66 (77) 92 Room Air 11/22/17 08:00 Room Air 11/22/17 07:04 83 18 93 Room Air 11/22/17 06:51 37.4 85 18 115/77 (90) 93 Room Air 11/22/17 00:00 Room Air 11/21/17 22:53 37.2 81 20 106/71 (83) 91 Room Air 11/21/17 19:24 72 18 94 Nasal Cannula 2.0 11/21/17 16:00 Room Air (Sonali Arreguin CRNP) Physical Exam Notes: General: no distress Eyes: normal inspection, PERLL Respiratory: chest non tender, audible gurgling, coarse throughout lung vasquez, no respiratory distress, no accessory muscle use Cardiac: regular rate and rhythm, no rub or gallop, no murmur, no edema, no jvd GI/: active bowel sounds, no abd pain or tenderness, soft, non distended Extremities: normal range of motion, normal strength, non tender Neuro/Psych: alert, non verbal Skin: normal color, dry (Sonali Arreguin CRNP) Laboratory Results Last 24 Hours Test 11/21/17 17:54 11/22/17 04:34 11/22/17 06:18 11/22/17 11:30 Bedside Glucose 169 mg/dl 228 mg/dl 205 mg/dl White Blood Count 12.14 K/uL Red Blood Count 3.91 M/uL Hemoglobin 12.4 g/dL Hematocrit 38.5 % Mean Corpuscular Volume 98.5 fL Mean Corpuscular Hemoglobin 31.7 pg Mean Corpuscular Hemoglobin Concent 32.2 g/dl RDW Standard Deviation 50.3 fL RDW Coefficient of Variation 14.2 % Platelet Count 312 K/uL Mean Platelet Volume 10.3 fL Prothrombin Time 32.0 SECONDS Prothromb Time International Ratio 3.1 (Sonali Arreguin CRNP) Assessment and Plan Mr. Bergman is a 62 year old man here for aspiration pna secondary to tube feeds Sepsis 2/2 Aspiration Pneumonia - Has chronic PEG and was found supine with tube feeds gurgling - Converted to Augmentin BID and will continue for coverage for 10 day total - can D/C antibiotics on 11/25. - Maintain HOB elevations at 45 degress - no residuals with PEG as per nurse; nutrition following for tube feeds and currently at goal feeds - Thicken tube feeds by nutrition - Patient was not able to discharge today as he was audibly gurgling when I entered the room and he was coarse throughout lung vasquez B/L Extensive DVTs: - INR therapeutic - continue warfarin 5 mg daily - Echo obtained to R/O R heart strain - given presentation and known DVTs there is a chance he has PEs however will defer CT as this would not change current plan -- Echo without evidence of significant heart strain - has evidence of mildly dilated R atrium and ventricle; presence of PFO H/O CVA with Seizure Disorder: - R hemiplegia, aphasia, dysphagia - MCA thrombosis - Atorvastatin 20 mg daily - ASA 81 mg daily - Tegretol 200 mg QID and 100 mg HS; Keppra 1000 mg BID COPD without Exacerbation: Unknown Severity - Pulmicort 1 mg BID; Atrovent nebs T2DM: - Added 5 units lantus in the morning as bsgs have been running around 200, decreased ss goal range to 100-140. Continue Lantus 12 units daily CKD Stage II: STABLE DVT Prophylaxis:Coumadin Code Status: FULL RESUSCITATION Disposition: Resident of [facility]; No POA, family estranged - Continue PT/OT (Sonali Arreguin, ZAYRA) i personally examined pt and verified all hyman points jermain IVERSON no HPI or ROS obtainable, no new problems noted by nursing vitals noted nad breathing unlabored but diffuse wet sounding rhonchi noted aspiration - reflux mediated. surgical PEJ likely more risk than benefit. keep upright, try to thicken feedings. is improving otherwise as above (Issa Avitia D.O.)
[2017-11-22] MEDS: WARFARIN SOD 5 MG TAB PEG SCH (16:35)
[2017-11-22] MEDS: FIBERSOURCE HN 1000ML BAG PEG SCH (18:21)
[2017-11-22] MEDS ORDERED: MICONAZOLE NITRATE POWDER 43 GM EXT PRN (19:15)
[2017-11-22] MEDS ORDERED: NURSING DECISION MEDICATION ORDER SCH (19:15)
[2017-11-22] MEDS: INSULIN GLARGINE SOLOSTAR 100 UNITS/ML 3 ML PEN SQ SCH (20:36)
[2017-11-22] MEDS: ATORVASTATIN 20 MG TAB PEG SCH (21:03)
[2017-11-23] MEDS: TUBE FEEDING WATER FLUSH PEG SCH ×3 (00:14→12:11)
[2017-11-23] MEDS: INSULIN ASPART 100 UNITS/ML 3 ML PEN SC SCH ×3 (00:16→12:21)
[2017-11-23] MEDS: NYSTATIN SUSP 500,000 U/5 ML UDC PO SCH ×2 (06:16→14:00)
[2017-11-23 07:04] VITALS: PULSE 70; O2SAT 91
[2017-11-23] MEDS: IPRATROPIUM BROMIDE NEB SOLN 0.02% 2.5 ML VIAL INH SCH ×2 (07:04→14:12)
[2017-11-23] MEDS: BUDESONIDE 0.5 MG/2 ML VIAL (PULMICORT) INH SCH (07:04)
[2017-11-23 07:34] LABS: INR 3.2 (0.9-1.1)
[2017-11-23 07:53] VITALS: BP 101/67; PULSE 80; TEMP 36.7; O2SAT 92
[2017-11-23] MEDS: ASPIRIN 81 MG ECTAB PO SCH (08:32)
[2017-11-23] MEDS: CARBAMAZEPINE 200 MG TAB PEG SCH ×2 (08:59→14:04)
[2017-11-23] MEDS: LACTOBACILLUS ACIDOPHILUS (FLORANEX) TAB PEG SCH ×2 (08:59→14:04)
[2017-11-23] MEDS: AMOXICILLIN/CLAVULANATE TAB 875 MG TAB PO SCH (08:59)
[2017-11-23] MEDS: CITALOPRAM 40 MG TAB PEG SCH (08:59)
[2017-11-23] MEDS ORDERED: INSULIN GLARGINE SOLOSTAR 100 UNITS/ML 3 ML PEN SC SCH ×2 (09:00→09:45)
[2017-11-23] MEDS: LEVETIRACETAM ORAL SOLN 100MG/ML PEG SCH (09:00)
[2017-11-23] MEDS: FIBERSOURCE HN 1000ML BAG PEG SCH (09:29)
[2017-11-23] MEDS ORDERED: ATRINS INH (10:33)
[2017-11-23] MEDS ORDERED: CMD2 PEG (10:33)
[2017-11-23] MEDS ORDERED: ASPEC81 PO (10:33)
[2017-11-23] MEDS ORDERED: AMOX1TAB43 PO (10:33)
[2017-11-23] MEDS ORDERED: INSDGIPEN SC (10:33)
--- NOTE | 2017-11-23 10:43 | Discharge Instructions ---
Discharge Instructions Date of Service Nov 23, 2017. Admission Reason for Admission: Aspiration Pneumonia Discharge Discharge Diagnosis / Problem: Aspiration Pna Discharge Goals Goal(s): Improve disease control Activity Recommendations Activity Level: Assistance Required . Additional Information Patient informed of condition: No (unable to communicate) Advance Directives: No DNR: No Level of Care: Skilled Communicable Disease: No Prognosis: Stable Grace Catheter: No Instructions / Follow-Up Instructions / Follow-Up Patient will need repeat INR in a couple of days as his warfarin was decreased to 4 mg from 5 mg. His bsgs have been running in the 200s, I am discharging him with an increase in his lantus so he will need for his sugars to be followed closely to assess this adjustment Please keep patient HOB above 30 degrees at all times to prevent aspiration Nutrition has suggested patient be changed to continuous over bolus feeding and to change feed to high calorie, low carb if that is available. This will decrease the volume he needs to have in order to meet is calorie needs and also help his sugars with the lower carb count Current Hospital Diet Patient's current hospital diet: Discharge Diet Recommended Diet: N/A Procedures Procedures Performed: Head CT Venous Doppler CXR Pending Studies Studies pending at discharge: no Physician Orders On Transfer POLST Discussion: without POLST completion Laboratory Results Last 24 Hours Test 11/22/17 11:30 11/22/17 17:52 11/22/17 18:07 11/23/17 00:11 Bedside Glucose 205 mg/dl 149 mg/dl 164 mg/dl 252 mg/dl Test 11/23/17 06:15 11/23/17 07:13 Bedside Glucose 278 mg/dl Prothrombin Time 32.4 SECONDS Prothromb Time International Ratio 3.2 Hemoglobin A1c Test 11/17/17 08:12 Range/Units Estimated Average Glucose 157 mg/dl Hemoglobin A1c 7.1 H 4.5-5.6 % Medical Emergencies . Who to Call and When: Medical Emergencies: If at any time you feel your situation is an emergency, please call 911 immediately. . Non-Emergent Contact Non-Emergency issues call your: Primary Care Provider Call Non-Emergent contact if: you have a fever, you have any medication questions . Past History Medical & Surgical History: (1) Aspiration pneumonia (2) History of CVA (cerebrovascular accident) (3) DVT (deep venous thrombosis) (4) Diabetes . "Provider Documentation" section prepared by Sonali Arreguin. . Core Measure Problem Core Measures: VTE VTE Core Measures Date of VTE Diagnosis: Nov 16, 2017 Time of VTE Diagnosis: 14:32 Reason no anticoag overlap I/P: Treatment provided - N/A Reason no anticoag overlap @DC: Treatment provided - N/A
--- NOTE | 2017-11-23 10:52 | Discharge Summary ---
Discharge Summary Date of Service Nov 23, 2017. Discharge Summary Admission Date: Nov 16, 2017 at 03:19 Discharge Disposition: [facility] facility Principal Diagnosis: Aspiration pneumonia Problems/Secondary Diagnoses: Sepsis, B/L Extensive DVTs, h/oCVA with Seizure Disorder, COPD without Exacerbation, T2DM, CKD Stage II, Procedures: CT HEAD WITHOUT CONTRAST (CT) CLINICAL HISTORY: RECENT CVA, ACCESS FOR BLEEDING COMPARISON STUDY: No previous studies for comparison. TECHNIQUE: Axial CT of the brain is performed from the vertex to the skull base. IV contrast was not administered for this examination. A dose lowering technique was utilized adhering to the principles of ALARA. CT DOSE: 614.27 mGy.cm FINDINGS: There are bilateral middle cerebral artery territory infarcts, right larger than left. There is no evidence of acute hemorrhage. There is no stomach and midline shift. There are patchy white matter hypodensities likely on a small vessel basis. There is mild ventricular dilatation, likely secondary to volume loss There is no evidence of acute sinusitis IMPRESSION: Bihemispheric infarcts. No evidence of acute hemorrhage. CHEST ONE VIEW PORTABLE CLINICAL HISTORY: 62 years-old Male presenting with TRINITY opacity - Aspiration pna. TECHNIQUE: Portable upright AP view of the chest was obtained. COMPARISON: 11/16/2017. FINDINGS: The patient is SANCHEZ rotated. Allowing for this, the cardiomediastinal silhouette is grossly normal. The previously noted opacity is less apparent on the current radiograph. However, the left lung does appear slightly more dense diffusely than the right lung. Elevation of the left hemidiaphragm. No new focal infiltrate. No large effusion or pneumothorax. Evidence of old right rib fractures. Upper abdomen normal. IMPRESSION: 1. Relatively less aeration of the left lung in comparison to the right with elevation left hemidiaphragm. No focal opacity is grossly apparent on the current radiograph. If there is continuing clinical concern, chest CT could be obtained. Aspiration cannot be excluded. BILATERAL LOWER EXTREMITY VENOUS DOPPLER CLINICAL HISTORY: RLE edema - bedbound patient COMPARISON STUDY: No previous studies for comparison. TECHNIQUE: Sonography of the deep venous system of the bilateral lower extremities was performed. Compression and augmentation were evaluated. FINDINGS: There is extensive deep venous thrombus within the right lower extremity, including thrombus within the right common femoral, superficial femoral, popliteal, posterior tibial and peroneal veins. Several of these vessels are expanded. Thrombus is largely occlusive. There is extensive thrombosis within the left lower extremity with deep venous thrombus within the left common femoral, popliteal, posterior tibial and peroneal veins. IMPRESSION: Extensive deep venous thrombus within the bilateral lower extremities, as detailed above. Electronically signed by: Ulysses Barron M.D. 11/16/2017 2:34 PM CHEST ONE VIEW PORTABLE CLINICAL HISTORY: Sepsis COMPARISON STUDY: No previous studies for comparison. FINDINGS: The patient is rotated. Multiple old right-sided rib fractures are incidentally noted. There is no pneumothorax or pleural effusion. There may be mild left upper lung airspace opacity. There is no lobar consolidation or evidence for pulmonary edema. Cardiac size is normal. Linear left basilar opacity is suggestive of atelectasis. IMPRESSION: Mild left upper lung opacity which favors an infectious process. Radiographic follow up is recommended to ensure resolution. Electronically signed by: Ulysses Barron M.D. 11/16/2017 7:22 AM Dictated Date/Time: 11/16/2017 7:19 AM Medication Reconciliation New Medications: Warfarin Sod (Coumadin) 2 Mg Tab 4 MG PEG DAILY, #10 DOSE Amoxicillin & Pot Clavulanate (Amoxicillin/Clavulanate P) 1 Tab Tab 875 MG PO BIDM for 3 Days, #5 TAB Aspirin (Aspirin EC Low Dose) 81 Mg Ectab 81 MG PO QAM for 30 Days, #30 TAB Insulin Glargine (Lantus Solostar) 100 Unit/Ml Inj 8 UNITS SC QAM for 14 Days, #1 PEN Ipratropium Buckeye (Ipratropium Buckeye) 0.5 Mg/2.5 Ml Nebu 0.5 MG INH Q8R PRN for SOB/Wheezing for 7 Days, #7 DOSE Continued Medications: Acetaminophen (Tylenol) 325 Mg Tab 650 MG PEG Q8 PRN for Pain, TAB Acetaminophen (Tylenol) 650 Mg Supp 650 MG RE Q6H PRN for MILD PAIN Atorvastatin (Lipitor) 20 Mg Tab 20 MG PEG HS, TAB Bisacodyl (Bisacodyl) 5 Mg Tab 40 MG RE UD PRN for Constipation, #2 TAB Bisacodyl (Dulcolax) 5 Mg Tab 10 MG RE UD for 1 Day, #2 TAB Budesonide (Inhalation) (Pulmicort) 1 Mg/2 Ml Meagan 2 ML INH QID PRN for copd Carbamazepine (Tegretol) 200 Mg Tab 100 MG PEG HS, TAB Carbamazepine (Carbatrol Er) 200 Mg Capcr 400 MG PEG BID, CAP Citalopram Hydrobromide (Citalopram Hydrobromide) 40 Mg Tab 40 MG PEG DAILY Insulin Glargine (Lantus) 100 Unit/Ml Inj 12 UNITS SQ QPM, VIAL Lactobacillus Acidophilus (Lactinex) Tab 1 TAB PEG TID, TAB Levetiractam (Levetiracetam) 100 Mg/1 Ml Soln 10 ML PEG BID Magnesium Hydroxide (Milk Of Magnesia) 30 Ml Susp 30 ML PEG Q72 HOURS PRN for Constipation, ML Metformin Hcl (Glucophage) 1,000 Mg Tab 1000 MG PEG BID, TAB Nystatin (Nystatin Suspension) 1 Ml Susp 5 ML PO Q8 [Enteral Feed] () 1 DOSE PEG Q8 [Water Flush] () 250 ML PEG Q6 Discharge Exam ROS unable to complete due to nonverbal status PE General: no distress Eyes: normal inspection, PERLL Respiratory: chest non tender,coarse bases to auscultation, no respiratory distress, no accessory muscle use Cardiac: regular rate and rhythm, no rub or gallop, no murmur, no edema, no jvd GI/: active bowel sounds, no abd pain or tenderness, soft, non distended Extremities: normal range of motion, generalized weakness Neuro/Psych: alert, non verbal, normal mood and affect Skin: normal color, dry Hospital Course 62 y/o M Hx HTN, DMII, CKD, seizures, COPD, CVA - R hemiplegia and aphasia. Presenting for a NH where he was found spitting up/gurgling his tube feeds. He was hypoxic on arrival to the ER. Initial labs reveal leukocytosis and an elevated lactic acid. He is noncommunicative and cannot provide any further info. Sepsis 2/2 Aspiration Pneumonia - Converted to Augmentin BID and will continue for coverage for 10 day total - can D/C antibiotics on 11/25. - Maintain HOB elevations above 30 degress - no residuals with PEG as per nurse; nutrition following for tube feeds and currently at goal feeds - Nutrition recommends changing feeds to constant rather than bolus with higher calorie count to decrease volume necessary to decrease aspiration risk, also recommends low carb for bsg control if this is available at [facility] B/L Extensive DVTs: - INR a little on the high side at 3.2, warfarin decreased to 4 mg for discharge - will need repeat INR in a couple of days - Echo obtained to R/O R heart strain - given presentation and known DVTs there is a chance he has PEs however will defer CT as this would not change current plan -- Echo without evidence of significant heart strain - has evidence of mildly dilated R atrium and ventricle; presence of PFO H/O CVA with Seizure Disorder: - R hemiplegia, aphasia, dysphagia - MCA thrombosis - Atorvastatin 20 mg daily - ASA 81 mg daily - Tegretol 200 mg QID and 100 mg HS; Keppra 1000 mg BID COPD without Exacerbation: Unknown Severity - Pulmicort 1 mg BID; Atrovent nebs T2DM: - Added 8 units lantus in the morning as bsgs have been running around 200, Continue Lantus 12 units at night - restart metformin after discharged, maintained on ss while inpatient CKD Stage II: STABLE i personally examined pt and verified all hyman points w [facility] [employer] [facility] [employer]ITLES appearing better, no HPI or ROS obtainable vitals noted nad breathing w ongoing rhonchi but no distress or accessory muscles, probably better air entry today, still on RA aspiration pneumonia - improving. ongoing aspiration precautions given tube feeds, most importantly trying to keep him upright Total Time Spent: Greater than 30 minutes This includes examination of the patient, discharge planning, medication reconciliation, and communication with other providers. Discharge Instructions Please refer to the electronic Patient Visit Report (Discharge Instructions) for additional information. Additional Copies To [facility]
[2017-11-23 11:54] VITALS: BP 101/67; PULSE 80; TEMP 36.7; O2SAT 92
[2017-11-23 14:12] VITALS: PULSE 71; O2SAT 93
[2017-11-23] MEDS ORDERED: WARFARIN SOD 4 MG TAB PEG SCH (16:00)
[2017-11-24] MEDS ORDERED: OXGN (22:32)
[2017-11-24] MEDS ORDERED: IPRASOL4 INH (22:32)
[2017-11-24] MEDS ORDERED: ASPI81TA28 PEG (22:32)
[2017-11-24] MEDS ORDERED: GUAI100S16 PEG (22:32)
[2017-11-24] MEDS ORDERED: NUTR1.5L4 PEG (22:32)
[2017-11-24] MEDS ORDERED: INSDGIPEN SC (22:32)
[2017-11-24] MEDS ORDERED: [UNRECOGNIZED DRUG - CODE] PEG ×2 (22:32)
[2017-11-24] MEDS ORDERED: AMX875 PEG (22:32)
[2017-11-24] MEDS ORDERED: WARF4TAB PEG (22:32)
== END 2017-11-23 15:03 | DRG 871 ==
LOC: C.EDB 23:51 → EDBD 23:51 → C.2T 11-16 03:19 → ENRESERV 11-16 03:25 → C.MS2W 11-17 16:56
PROVIDERS: ADMIT Internal Medicine; ATTEND Family Medicine
DX: A41.9 Sepsis, unspecified organism (principal); J69.0 Pneumonitis due to inhalation of food and vomit; J96.01 Acute respiratory failure with hypoxia; I82.403 Acute embolism and thrombosis of unspecified deep veins of lower extremity, bilateral; I69.351 Hemiplegia and hemiparesis following cerebral infarction affecting right dominant side; Q21.1 Atrial septal defect; N18.3 Chronic kidney disease, stage 3 (moderate); E11.22 Type 2 diabetes mellitus with diabetic chronic kidney disease; J44.9 Chronic obstructive pulmonary disease, unspecified; I69.320 Aphasia following cerebral infarction; G40.909 Epilepsy, unspecified, not intractable, without status epilepticus; F32.9 Major depressive disorder, single episode, unspecified; E78.5 Hyperlipidemia, unspecified; K21.9 Gastro-esophageal reflux disease without esophagitis; I12.9 Hypertensive chronic kidney disease with stage 1 through stage 4 chronic kidney disease, or unspecified chronic kidney disease; I73.9 Peripheral vascular disease, unspecified; Z51.81 Encounter for therapeutic drug level monitoring; Z79.899 Other long term (current) drug therapy; Z79.4 Long term (current) use of insulin; Z90.3 Acquired absence of stomach [part of]; Z87.891 Personal history of nicotine dependence; Z88.8 Allergy status to other drugs, medicaments and biological substances

== ENCOUNTER 2017-11-24 21:31 | Inpatient (IN) | payer OTHER ==
[~2017-11-24] VITALS: Ht 188 cm; Wt 82.6 kg
[~2017-11-24 21:31] MED LIST: ACET-1311 PEG; ACET650S10 RE; AMOX1TAB43 PO; ASPEC81 PO; ATOR-22 PEG; ATRINS INH; BISA-16 RE; BISA1TAB15 RE; BUDE1SUS INH; CARB1CAP8 PEG; CARB200T PEG; CITA40TA4 PEG; CMD2 PEG; INSDGI SQ; INSDGIPEN SC; KPPS PEG; LCTX PEG; METF-384 PEG; MOML PEG; NYSS/ PO; WATER FLUSH PEG; [UNRECOGNIZED DRUG - MIXTURE] PEG
[2017-11-24] MEDS ORDERED: PIPERACILLIN/TAZOBACTAM 4.5 GM/100ML D5W IV STA (21:41)
--- NOTE | 2017-11-24 22:00 | EMERGENCY ROOM VISIT NOTE ---
History Report prepared by Dana: Henrique Reveles Under the Supervision of: Dr. Eugenio Llanos M.D. First contact with patient: 21:37 Stated Complaint: FEVER, TACHYCARDIA, SOB History of Present Illness This HPI is limited secondary to mental status secondary to prior stroke. The patient is a 62 year old male who presents to the Emergency Room via EMS from [facility] with complaints of worsening shortness of breath and a low oxygen saturation that was noticed shortly prior to arrival. Per hospital nursing staff and [facility] staff the patient was just discharged from this hospital yesterday. The discharge diagnosis was aspiration pneumonia--he is currently taking Augmentin. His oxygen saturations were down to 79% at [facility] before they were brought up with C-pap. He is now on Bi-pap in our department. Source of History: halfway notes, EMS, nursing staff History Limited By: AMS (prior stroke) Position: chest (Respiratory) Quality: other (SOB) Timing: worsening Review of Systems ROS limited secondary to status as noted above. Past Medical & Surgical Medical Problems: (1) Aspiration pneumonia (2) CKD (chronic kidney disease) (3) COPD (chronic obstructive pulmonary disease) (4) Diabetes (5) DVT (deep venous thrombosis) (6) History of CVA (cerebrovascular accident) (7) HLD (hyperlipidemia) (8) Pneumonia (9) PVD (peripheral vascular disease) Family History Family history unobtainable secondary to patient status. Social History Smoking Status: Former Smoker Marital Status: single Housing Status: halfway Occupation Status: unemployed Current/Historical Medications Scheduled Amoxicillin (Amoxicillin), 875 MG PEG BID Aspirin (Aspirin Ec), 81 MG PEG QAM Atorvastatin (Lipitor), 20 MG PEG HS Budesonide (Inhalation) (Pulmicort), 2 ML INH QID Carbamazepine (Tegretol), 100 MG PEG HS Carbamazepine (Tegretol), 400 MG PEG BID17 Citalopram Hydrobromide (Citalopram Hydrobromide), 40 MG PEG QAM Guaifenesin (Guaifenesin), 10 ML PEG Q6H Home O2 Therapy (Oxygen), 3 LITERS NA CONTINOUS Insulin Glargine (Lantus), 12 UNITS SQ QPM Insulin Glargine (Lantus Solostar), 8 UNITS SC QAM Ipratropium-Albuterol (Duoneb), 1 TREATMENT INH Q8 Lactobacillus Acidophilus (Lactinex), 1 TAB PEG TID Levetiractam (Levetiracetam), 10 ML PEG BID Metformin Hcl (Glucophage), 1,000 MG PEG BID Nutritional Supplements (Isosource 1.5 Aron), 1 DOSE PEG HS Nystatin (Nystatin Suspension), 5 ML PO Q6H Warfarin Sodium (Coumadin), 4 MG PEG QPM [Water Flush], 250 ML PEG Q6 Scheduled PRN Acetaminophen (Tylenol), 650 MG PEG Q8 PRN for Pain Acetaminophen (Tylenol), 650 MG RE Q6H PRN for MILD PAIN Bisacodyl (Bisacodyl), 40 MG RE UD PRN for Constipation Bisacodyl (Dulcolax), 10 MG RE DAILY PRN for Constipation Magnesium Hydroxide (Milk Of Magnesia), 30 ML PEG Q72 HOURS PRN for Constipation Allergies Coded Allergies: Bee Venom (Verified Allergy, Unknown, LISTED ON DEC, 11/24/17) Pseudoephedrine (Verified Allergy, Unknown, UNKNOWN, 11/24/17) Physical Exam Vital Signs Date Time Temp Pulse Resp B/P (MAP) Pulse Ox O2 Delivery O2 Flow Rate FiO2 11/25/17 00:00 99 20 100/75 96 BiPAP 11/24/17 23:30 108 20 110/76 96 BiPAP 11/24/17 23:00 107 24 116/73 97 BiPAP 11/24/17 22:20 95 BiPAP 50 11/24/17 22:09 144 11/24/17 22:03 155 99 50 11/24/17 21:35 93 CPAP 11/24/17 21:35 39.5 150 32 105/78 97 BiPAP Physical Exam GENERAL: Patient is in no acute distress. HEENT: No acute trauma, normocephalic atraumatic, mucous membranes moist, no nasal congestion, no scleral icterus. NECK: No stridor, no adenopathy, no meningismus, trachea is midline. LUNGS: There are coarse breath sounds bilaterally. There is no wheezing. Breath sounds are fairly full. HEART: Tachycardic rate with a regular rhythm. ABDOMEN: Soft, nontender, bowel sounds positive, no hernias, no peritonitis. EXTREMITIES: No cyanosis or edema, full range of motion of all the joints without pain or difficulty, no signs for acute trauma. NEUROLOGIC: Awake. Non-verbal. SKIN: No rash, no jaundice, no diaphoresis. Medical Decision & Procedures ER Provider Diagnostic Interpretation: Radiology results as stated below per my review and radiologist interpretation: CHEST ONE VIEW PORTABLE HISTORY: Sepsis COMPARISON: Chest 11/17/2017. FINDINGS: Hazy airspace opacity within the left mid to lower lung zone. The right lung remains clear. Old, healed right rib fractures. Emphysema. The heart is normal in size. No pleural effusions. No pneumothorax. IMPRESSION: Hazy airspace opacity within the left mid to lower lung zone. This likely represents a pneumonia. Electronically signed by: Chris Yeboah M.D. 11/24/2017 10:04 PM Dictated Date/Time: 11/24/2017 10:02 PM Laboratory Results Test 11/24/17 22:00 11/24/17 22:09 11/24/17 22:48 11/24/17 23:50 Activated Partial Thromboplast Time 28.9 SECONDS (21.0-31.0) Partial Thromboplastin Ratio 1.1 Magnesium Level 1.9 mg/dl (1.8-2.4) Total Bilirubin 0.4 mg/dl (0.2-1) Aspartate Amino Transf (AST/SGOT) 13 U/L (15-37) Alanine Aminotransferase (ALT/SGPT) 49 U/L (12-78) Alkaline Phosphatase 90 U/L (45-117) Total Protein 8.1 gm/dl (6.4-8.2) Albumin 3.5 gm/dl (3.4-5.0) Globulin 4.6 gm/dl (2.5-4.0) Albumin/Globulin Ratio 0.8 (0.9-2) Bedside Lactic Acid Venous 3.84 mmol/L (0.90-1.70) Influenza Type A Antigen Neg for Influ A (NEG) Influenza Type B Antigen Neg for Influ B (NEG) Urine Color DK YELLOW Urine Appearance CLEAR (CLEAR) Urine pH 5.0 (4.5-7.5) Urine Specific Erick 1.028 (1.000-1.030) Urine Protein NEG (NEG) Urine Glucose (UA) 1+ (NEG) Urine Ketones TRACE (NEG) Urine Occult Blood NEG (NEG) Urine Nitrite NEG (NEG) Urine Bilirubin NEG (NEG) Urine Urobilinogen NEG (NEG) Urine Leukocyte Esterase NEG (NEG) Urine WBC (Auto) 1-5 /hpf (0-5) Urine RBC (Auto) 0-4 /hpf (0-4) Urine Hyaline Casts (Auto) 1-5 /lpf (0-5) Urine Epithelial Cells (Auto) 10-20 /lpf (0-5) Urine Bacteria (Auto) NEG (NEG) Test 11/25/17 00:23 Blood Gas Sample Site R Radial Bedside Blood Gas pH (LAB) 7.31 (7.35-7.45) Bedside Blood Gas pCO2 (LAB) 43 mmHg (35-46) Bedside Blood Gas pO2 (LAB) 129 mmHg (80-95) Bedside Blood Gas HCO3 (LAB) 22 meq/L (19-24) Bedside Blood Gas Total CO2 23 mEq/l (24-31) Bedside Blood Gas Base Excess (LAB) -4.0 meq/L (-9-1.8) Bedside Blood Gas O2 Saturation 98.0 % (90-95) Emmanuel Test Pass Oxygen Delivery Device BIPAP Bedside Oxygen Rate (breaths/min) 20 Bedside FiO2 50 % Blood Gas IPAP 12 Laboratory results reviewed by me. Medications Administered Medications (Trade) Dose Ordered Sig/Valerie Route Start Time Stop Time Status Last Admin Dose Admin Piperacillin Sod/ Tazobactam Sod (Zosyn Iv) 4.5 gm ONE STAT IV 11/24/17 21:41 11/24/17 21:51 DC 11/24/17 22:45 4.5 GM Sodium Chloride 1,000 ml @ 999 mls/hr Q1H1M STAT IV 11/24/17 22:02 11/24/17 23:02 DC 11/24/17 22:25 999 MLS/HR Acetaminophen (Tylenol Supp) 975 mg NOW STAT TX 11/24/17 22:02 11/24/17 22:08 DC 11/24/17 22:24 975 MG Sodium Chloride 1,000 ml @ 999 mls/hr Q1H1M STAT IV 11/24/17 22:12 11/24/17 23:12 DC 11/24/17 22:46 999 MLS/HR Vancomycin HCl 2000 mg/Sodium Chloride 540 ml @ 200 mls/hr NOW STAT IV 11/24/17 23:53 11/25/17 02:34 DC 11/25/17 00:15 200 MLS/HR ECG Indication: altered mental status, SOB/dyspnea Rate (beats per minute): 144 Rhythm: sinus tachycardia Findings: other (No ST-elevation, No PVCs, No PACs) Change: Patient's electrocardiogram interpreted by me. ED Course 2137: The patient was evaluated in room B12. A complete history and physical exam was performed. 2140: Ordered Zosyn 4.5 gm IV. 2200: I discussed the case with Dr. Beebe - On-call manufacturing plant manager. He suggested discussing the case with the [facility] Hospitalist. He does not feel the need to come see the patient. 2201: Ordered Tylenol 975 mg TX, Sodium Chloride 1000 mL @ 999 mL/hr IV. 2211: Ordered Sodium Chloride 1000 mL @ 990 mL/hr IV. 2221: I discussed the case with Dr. Valderrama - [facility] Hospitalist. He will evaluate the patient for further treatment. Medical Decision Differential Diagnosis includes; Sepsis, pneumonia, dehydration, bacteremia, anemia, electrolyte imbalance, UTI, aspiration. There is a mild leukocytosis, this could be consistent with infection. No concerning anemia. No significant electrolyte abnormality, kidney failure or hepatitis. INR is elevated consistent with his Coumadin use. Lactic acid level is quite elevated at 3.8, consistent with infection/sepsis. Urinalysis does not show infection. Influenza testing is negative. Chest film shows a left-sided pneumonia, no pneumothorax or CHF. Blood cultures are pending. EKG shows a sinus tachycardia, no acute ischemia. The patient presented with reports of hypoxia. He was febrile and quite tachycardic. He was rapidly placed on BiPAP. He received 2 L of IV saline, IV Zosyn. He was given rectal Tylenol. With the above treatment, the patient's heart rate has decreased. He is more comfortable and his O2 saturation is adequate on the BiPAP. He does not seem in distress. His blood pressure has remained adequate. The patient presents with sepsis, likely from a left-sided pneumonia. He will require a hospital stay. He he may even require the intensive care unit depending on how things go over the next hour or 2. I did speak with the manufacturing plant manager, I talked with case management. The on-call hospitalist was consulted. Consults Time Called: 2155 Consulting Physician: Dr. Beebe - On-Call Client Manager Large Law Returned Call: 2200 I discussed the case with Dr. Beebe - On-call manufacturing plant manager. He suggested consulting the [facility] hospitalist. He does not feel the need to come see the patient. Additional Consults: Time Called: 2220 Consulted Physician: Dr. Lavelle CHAMPION Hospitalist Returned Call: 2221 Additional Comments: I discussed the case with Dr. Lavelle CHAMPION Hospitalist. He will evaluate the patient for further treatment. Impression Primary Impression: Sepsis Additional Impressions: Pneumonia Hypoxia Tachycardia Critical Care I have personally spent greater than 45 minutes of critical care time in the direct management of this patient. This includes bedside care, interpretation of diagnostic studies, and testing, discussion with consultants, patient, and family members, and other required patient management activities. This 45 minutes is in excess of all separately billable procedures. Scribe Attestation The scribe's documentation has been prepared under my direction and personally reviewed by me in its entirety. I confirm that the note above accurately reflects all work, treatment, procedures, and medical decision making performed by me. Departure Information Dispostion Being Evaluated By Hospitalist Referrals Siomara Post (PCP) Problem Qualifiers
[2017-11-24] MEDS ORDERED: SODIUM CHLORIDE 0.9% 1000ML 1,000 ML IV STA ×2 (22:02→22:12)
[2017-11-24] MEDS ORDERED: ACETAMINOPHEN 325 MG SUPP PR STA (22:02)
[2017-11-24 22:03] VITALS: PULSE 155; O2SAT 99
--- NOTE | 2017-11-24 22:05 | DIAGNOSTIC IMAGING REPORT ---
CHEST ONE VIEW PORTABLE HISTORY: Sepsis COMPARISON: Chest 11/17/2017. FINDINGS: Hazy airspace opacity within the left mid to lower lung zone. The right lung remains clear. Old, healed right rib fractures. Emphysema. The heart is normal in size. No pleural effusions. No pneumothorax. IMPRESSION: Hazy airspace opacity within the left mid to lower lung zone. This likely represents a pneumonia. Electronically signed by: Chris Yeboah M.D. 11/24/2017 10:04 PM Dictated Date/Time: 11/24/2017 10:02 PM
[2017-11-24 22:26] LABS: HEMATOCRIT 46.6 % (42-52); HEMOGLOBIN 15.2 g/dL (14.0-18.0); MEAN CELL VOLUME 99.1 fL (80-100); MEAN CORPUSCULAR HEMOGLOBIN 32.3 pg (25-34); MEAN CORPUSCULAR HGB CONC 32.6 g/dl (32-36); MEAN PLATELET VOLUME 10.4 fL (7.4-10.4); PLATELET COUNT 349 K/uL (130-400); WHITE BLOOD COUNT 13.67 K/uL (4.8-10.8)
[2017-11-24] MEDS ORDERED: GUAI100S16 PEG (22:32)
[2017-11-24] MEDS ORDERED: AMX875 PEG (22:32)
[2017-11-24] MEDS ORDERED: WARF4TAB PEG (22:32)
[2017-11-24] MEDS ORDERED: ASPI81TA28 PEG (22:32)
[2017-11-24] MEDS ORDERED: NUTR1.5L4 PEG (22:32)
[2017-11-24] MEDS ORDERED: IPRASOL4 INH (22:32)
[2017-11-24] MEDS ORDERED: INSDGIPEN SC (22:32)
[2017-11-24] MEDS ORDERED: OXGN (22:32)
[2017-11-24] MEDS ORDERED: [UNRECOGNIZED DRUG - CODE] PEG ×2 (22:32)
[2017-11-24 22:36] LABS: INR 1.7 (0.9-1.1); PTT PATIENT 28.9 SECONDS (21.0-31.0)
[2017-11-24 22:45] LABS: ALBUMIN 3.5 gm/dl (3.4-5.0); ALT/SGPT 49 U/L (12-78); BLOOD UREA NITROGEN 24 mg/dl (7-18); CALCIUM 9.7 mg/dl (8.5-10.1); CARBON DIOXIDE 24 mmol/L (21-32); CREATININE 1.17 mg/dl (0.60-1.40); GLUCOSE 248 mg/dl (70-99); POTASSIUM 5.3 mmol/L (3.5-5.1); SODIUM 134 mmol/L (136-145)
[2017-11-24 22:47] LABS: ALKALINE PHOSPHATASE 90 U/L (45-117); AST/SGOT 13 U/L (15-37); TOTAL PROTEIN 8.1 gm/dl (6.4-8.2)
[2017-11-24 23:19] LABS: BASO % 0.1 %; BASO ABS # 0.01 K/uL (0-0.2); EOS % 0.1 %; EOS ABS # 0.01 K/uL (0-0.5); IG# 0.05 K/uL (0.00-0.02); LYMPH % 3.9 %; LYMPH ABS # 0.53 K/uL (1.2-3.4); MONO % 4.1 %; MONO ABS # 0.56 K/uL (0.11-0.59); NEUT % 91.4 %; NEUT ABS # 12.51 K/uL (1.4-6.5)
[2017-11-24 23:31] LABS: INFLUENZA B ANTIGEN Neg for Influ B (NEG)
[2017-11-24] MEDS ORDERED: VANCOMYCIN CONSULT ACTIVE PRN (23:45)
[2017-11-24] MEDS ORDERED: VANCOMYCIN INJ 2,000 MG in SODIUM CHLORIDE 0.9% 500ML 500 ML IV STA (23:53)
[2017-11-25] VITALS (11 sets, daily range): BP systolic 104–115; BP diastolic 61–79; PULSE 75–101; TEMP 36.5–37.1; O2SAT 92–100; Ht 188 cm; Wt 82.6 kg
[2017-11-25] MEDS ORDERED: OPTIRAY 320 IV PRN
[2017-11-25] MEDS ORDERED: PIPERACILL/TAZOBAC CONSULT ACTIVE PRN (00:45)
[2017-11-25] MEDS ORDERED: ONDANSETRON INJ 2 MG/ML 2 ML VIAL IV PRN (00:45)
[2017-11-25] MEDS ORDERED: BISACODYL 5 MG TABEC PO PRN (00:45)
[2017-11-25] MEDS ORDERED: VANCOMYCIN CONSULT ACTIVE PRN ×2 (00:45→07:45)
[2017-11-25] MEDS ORDERED: BISACODYL 5 MG TABEC PEG PRN (00:45)
[2017-11-25] MEDS ORDERED: NITROGLYCERIN 0.4 MG SL PER TAB CHARGE SL PRN (00:45)
[2017-11-25] MEDS ORDERED: POLYETHYLENE (MIRALAX) 17 GM PACK PO PRN (00:45)
[2017-11-25] MEDS ORDERED: MAGNESIUM HYDROXIDE SUSP 30 ML UDC PO PRN (00:45)
[2017-11-25] MEDS ORDERED: ACETAMINOPHEN 325 MG TAB PO PRN (00:45)
[2017-11-25] MEDS ORDERED: ALUMINUM/MAGNESIUM/SIMETH (MAALOX MAX) 30 ML UDC PO PRN (00:45)
[2017-11-25] MEDS ORDERED: MAGNESIUM HYDROXIDE SUSP 30 ML UDC PEG PRN (00:45)
[2017-11-25] MEDS ORDERED: FIBERSOURCE HN 1000ML BAG PEG SCH (02:30)
[2017-11-25] MEDS: SODIUM CHLORIDE 0.9% 1000ML 1,000 ML IV SCH ×3 (02:38→23:18)
--- NOTE | 2017-11-25 03:46 | History and Physical ---
History & Physical Date & Time of Service: Nov 25, 2017 at 03:04 Chief Complaint: Pneumonia Primary Care Physician: Siomara Post History of Present Illness Source: clinic records, hospital records 62 y/o M PMHx HTN, DMII, CKD, seizures, COPD, CVA with R hemiplegia and aphasia presented from [facility] with hypoxia and tachycardia Unable to attain history/ROS from patient due to mental status secondary to prior stroke. As per hospital records, patient was discharged from hospital two day ago with diagnosis of aspiration pneumonia and was on regimen of Augmentin. However, day after discharge, [facility] staff noted dyspnea and decreased oxygen saturation to 79% shortly prior to arrival to ED. In the ED, his CPAP was changed to BiPAP, patient was given IV fluids and a dose of Zosyn. Past Medical/Surgical History 1) CVA - R hemiplegia, aphasia, dysphagia - MCA thrombosis 2) COPD 3) Seizure disorder 4) GERD 5) CKD II 6) HTN 7) Depression 8) DM II 9) Former smoker 10) Peg placement Family History Unable to obtain Social History Smoking Status: Unknown if Ever Smoked Smokeless Tobacco Use: Unknown Drug Use: other (Unknown) Marital Status: single Housing status: assisted living Occupational Status: unemployed Allergies Coded Allergies: Bee Venom (Verified Allergy, Unknown, LISTED ON DEC, 11/24/17) Pseudoephedrine (Verified Allergy, Unknown, UNKNOWN, 11/24/17) Home Medications Scheduled Amoxicillin (Amoxicillin), 875 MG PEG BID Aspirin (Aspirin Ec), 81 MG PEG QAM Atorvastatin (Lipitor), 20 MG PEG HS Budesonide (Inhalation) (Pulmicort), 2 ML INH QID Carbamazepine (Tegretol), 100 MG PEG HS Carbamazepine (Tegretol), 400 MG PEG BID17 Citalopram Hydrobromide (Citalopram Hydrobromide), 40 MG PEG QAM Guaifenesin (Guaifenesin), 10 ML PEG Q6H Home O2 Therapy (Oxygen), 3 LITERS NA CONTINOUS Insulin Glargine (Lantus), 12 UNITS SQ QPM Insulin Glargine (Lantus Solostar), 8 UNITS SC QAM Ipratropium-Albuterol (Duoneb), 1 TREATMENT INH Q8 Lactobacillus Acidophilus (Lactinex), 1 TAB PEG TID Levetiractam (Levetiracetam), 10 ML PEG BID Metformin Hcl (Glucophage), 1,000 MG PEG BID Nutritional Supplements (Isosource 1.5 Aron), 1 DOSE PEG HS Nystatin (Nystatin Suspension), 5 ML PO Q6H Warfarin Sodium (Coumadin), 4 MG PEG QPM [Water Flush], 250 ML PEG Q6 Scheduled PRN Acetaminophen (Tylenol), 650 MG PEG Q8 PRN for Pain Acetaminophen (Tylenol), 650 MG RE Q6H PRN for MILD PAIN Bisacodyl (Bisacodyl), 40 MG RE UD PRN for Constipation Bisacodyl (Dulcolax), 10 MG RE DAILY PRN for Constipation Magnesium Hydroxide (Milk Of Magnesia), 30 ML PEG Q72 HOURS PRN for Constipation Physical Exam Vital Signs Date Time Temp Pulse Resp B/P (MAP) Pulse Ox O2 Delivery O2 Flow Rate FiO2 11/25/17 01:44 36.9 92 20 114/74 96 BiPAP 50 11/25/17 01:27 94 20 97/67 97 11/25/17 01:00 92 20 97/69 97 BiPAP 11/25/17 00:00 99 20 100/75 96 BiPAP 11/24/17 23:30 108 20 110/76 96 BiPAP 11/24/17 23:00 107 24 116/73 97 BiPAP 11/24/17 22:20 95 BiPAP 50 11/24/17 22:09 144 11/24/17 21:35 93 CPAP 11/24/17 21:35 39.5 150 32 105/78 97 BiPAP General Appearance: WD/WN, no apparent distress, + pertinent finding (BiPAP mask on) Head: normocephalic, atraumatic Eyes: normal inspection, + pertinent finding (does not track) Neck: supple, no adenopathy Respiratory/Chest: no accessory muscle use, + decreased breath sounds, + rales Cardiovascular: no edema, no murmur, normal peripheral pulses, + tachycardia Abdomen/GI: normal bowel sounds, soft Back: + pertinent finding Extremities/Musculoskelatal: normal inspection, no pedal edema Neurologic/Psych: + aphasia, + depressed affect, + pertinent finding (not responding or following commands. Leaning towards his left.) Skin: normal color, warm/dry, no rash Diagnostics Laboratory Results Results Past 24 Hours Test 11/24/17 22:00 11/24/17 22:09 11/24/17 22:48 11/24/17 23:50 Range/Units White Blood Count 13.67 4.8-10.8 K/uL Red Blood Count 4.70 4.7-6.1 M/uL Hemoglobin 15.2 14.0-18.0 g/dL Hematocrit 46.6 42-52 % Mean Corpuscular Volume 99.1 80-100 fL Mean Corpuscular Hemoglobin 32.3 25-34 pg Mean Corpuscular Hemoglobin Concent 32.6 32-36 g/dl Platelet Count 349 130-400 K/uL Mean Platelet Volume 10.4 7.4-10.4 fL Neutrophils (%) (Auto) 91.4 % Lymphocytes (%) (Auto) 3.9 % Monocytes (%) (Auto) 4.1 % Eosinophils (%) (Auto) 0.1 % Basophils (%) (Auto) 0.1 % Neutrophils # (Auto) 12.51 1.4-6.5 K/uL Lymphocytes # (Auto) 0.53 1.2-3.4 K/uL Monocytes # (Auto) 0.56 0.11-0.59 K/uL Eosinophils # (Auto) 0.01 0-0.5 K/uL Basophils # (Auto) 0.01 0-0.2 K/uL RDW Standard Deviation 50.0 36.4-46.3 fL RDW Coefficient of Variation 14.0 11.5-14.5 % Immature Granulocyte % (Auto) 0.4 % Immature Granulocyte # (Auto) 0.05 0.00-0.02 K/uL Prothrombin Time 17.4 9.0-12.0 SECONDS Prothromb Time International Ratio 1.7 0.9-1.1 Activated Partial Thromboplast Time 28.9 21.0-31.0 SECONDS Partial Thromboplastin Ratio 1.1 Sodium Level 134 136-145 mmol/L Potassium Level 5.3 3.5-5.1 mmol/L Chloride Level 99 98-107 mmol/L Carbon Dioxide Level 24 21-32 mmol/L Anion Gap 11.0 3-11 mmol/L Blood Urea Nitrogen 24 7-18 mg/dl Creatinine 1.17 0.60-1.40 mg/dl Estimated GFR () 78.1 Estimated GFR (Non- 67.4 BUN/Creatinine Ratio 20.1 10-20 Random Glucose 248 70-99 mg/dl Calcium Level 9.7 8.5-10.1 mg/dl Magnesium Level 1.9 1.8-2.4 mg/dl Total Bilirubin 0.4 0.2-1 mg/dl Aspartate Amino Transf (AST/SGOT) 13 15-37 U/L Alanine Aminotransferase (ALT/SGPT) 49 12-78 U/L Alkaline Phosphatase 90 45-117 U/L Total Protein 8.1 6.4-8.2 gm/dl Albumin 3.5 3.4-5.0 gm/dl Globulin 4.6 2.5-4.0 gm/dl Albumin/Globulin Ratio 0.8 0.9-2 Bedside Lactic Acid Venous 3.84 0.90-1.70 mmol/L Influenza Type A Antigen Neg for Influ A NEG Influenza Type B Antigen Neg for Influ B NEG Urine Color DK YELLOW Urine Appearance CLEAR CLEAR Urine pH 5.0 4.5-7.5 Urine Specific Mcclure 1.028 1.000-1.030 Urine Protein NEG NEG Urine Glucose (UA) 1+ NEG Urine Ketones TRACE NEG Urine Occult Blood NEG NEG Urine Nitrite NEG NEG Urine Bilirubin NEG NEG Urine Urobilinogen NEG NEG Urine Leukocyte Esterase NEG NEG Urine WBC (Auto) 1-5 0-5 /hpf Urine RBC (Auto) 0-4 0-4 /hpf Urine Hyaline Casts (Auto) 1-5 0-5 /lpf Urine Epithelial Cells (Auto) 10-20 0-5 /lpf Urine Bacteria (Auto) NEG NEG Test 11/25/17 00:23 Range/Units Blood Gas Sample Site R Radial Bedside Blood Gas pH (LAB) 7.31 7.35-7.45 Bedside Blood Gas pCO2 (LAB) 43 35-46 mmHg Bedside Blood Gas pO2 (LAB) 129 80-95 mmHg Bedside Blood Gas HCO3 (LAB) 22 19-24 meq/L Bedside Blood Gas Total CO2 23 24-31 mEq/l Bedside Blood Gas Base Excess (LAB) -4.0 -9-1.8 meq/L Bedside Blood Gas O2 Saturation 98.0 90-95 % Emmanuel Test Pass Oxygen Delivery Device BIPAP Bedside Oxygen Rate (breaths/min) 20 Bedside FiO2 50 % Blood Gas IPAP 12 Microbiology Results 11/24/17 Blood Culture, Received Pending 11/24/17 Blood Culture, Received Pending 11/25/17 MRSA DNA Surveillance Screen, Received Pending Diagnostic Radiology CHEST ONE VIEW PORTABLE HISTORY: Sepsis COMPARISON: Chest 11/17/2017. FINDINGS: Hazy airspace opacity within the left mid to lower lung zone. The right lung remains clear. Old, healed right rib fractures. Emphysema. The heart is normal in size. No pleural effusions. No pneumothorax. IMPRESSION: Hazy airspace opacity within the left mid to lower lung zone. This likely represents a pneumonia. CT for PE Stat rad: dark focus raising possibility of age-indeterminate non-occlusive PE involving proximal/segmental pulmonary arterial marketing operations associate with RLL. Dense airspace in LLL concerning for PNA. Patchy opacity at TRINITY. No PE or aortic dissection. No cardiomegaly or pericardial effusion Impression Assessment and Plan 62 y/o M PMHx HTN, DMII, CKD, seizures, COPD, CVA with R hemiplegia and aphasia presented from [facility] with hypoxia and tachycardia and admitted for pneumonia. Presenting for a NH where he was found spitting up/gurgling his tube feeds. He was hypoxic on arrival to the ER. Initial labs reveal leukocytosis and an elevated lactic acid. He is noncommunicative and cannot provide any further info. Sepsis 2/2 pneumonia with acute hypoxic respiratory failure - febrile, tachycardic, hypotensive, leukocytosis - Continue BiPAP. Wean as tolerated to maintain sats>92% - IV abx: vanc + Zosyn - Trace blood cultures - IVF NSS @ 100cc/hr - Aspiration precautions - maintain HOB elevations above 30 degrees Recent extensive DVTs bilaterally - Continue warfarin. INR subtherapeutic 1.7 on admission - CT found age-indeterminate PE. Await final radiology report. - Recent echo without evidence of significant heart strain - has evidence of mildly dilated R atrium and ventricle; presence of PFO - Trend INR H/O CVA with Seizure Disorder: - R hemiplegia, aphasia, dysphagia - MCA thrombosis - Continue aspirin, atorvastatin daily - Continue Tegretol 200 mg QID and 100 mg HS; Keppra 1000 mg BID COPD without Exacerbation: unknown severity - Continue DuoNeb and Pulmicort T2DM - Continue home Lantus regimen. Hold metformin. - BG checks ac/hs CKD Stage II: STABLE VTE ppx - SCDs - Warfarin as above FULL CODE Attending addendum: I have physically seen this patient, have supervised the medical residents activities, and agree with the H&P unless as otherwise noted. Assessment and Plan: Acute respiratory failure with hypoxia/pneumonia involving the left lung-- Place on telemetry for close oxygen monitoring Continue BiPAP with serial ABGs Vancomycin IV and Zosyn IV Normal saline at 100 mils per hour Duonebs every 4 hours while awake and every 2 hours when necessary. Pulmicort Respules 0.5 mg inhaled twice daily Bilateral DVTs-- CT with age-indeterminate PE, final report pending Adjust Coumadin dosing for subtherapeutic INR 1.7. Seizure disorder-- Continue Tegretol and Keppra Level of Care Telemetry Advanced Directives Existing Living Will: No Existing Power of Supervisor [employer] Road: No Resuscitation Status FULL RESUSCITATION VTE Prophylaxis VTE Risk Assessment Done? Y/N: Yes Risk Level: Moderate Given or contraindicated: Warfarin (Coumadin), SCD's Social Service Consult Lives in Personal Care Resident Tracking Resident Involvement: Resident Care Provided Care Provided: Adult Hospital Medicine
[2017-11-25 05:17] LABS: HEMATOCRIT 40.8 % (42-52); HEMOGLOBIN 13.2 g/dL (14.0-18.0); MEAN CELL VOLUME 99.5 fL (80-100); MEAN CORPUSCULAR HEMOGLOBIN 32.2 pg (25-34); MEAN CORPUSCULAR HGB CONC 32.4 g/dl (32-36); MEAN PLATELET VOLUME 10.2 fL (7.4-10.4); PLATELET COUNT 311 K/uL (130-400); RED CELL DISTRIBUTION WIDTH CV 14.2 % (11.5-14.5); WHITE BLOOD COUNT 17.91 K/uL (4.8-10.8)
[2017-11-25 05:25] LABS: INR 1.7 (0.9-1.1)
[2017-11-25 05:50] LABS: CALCIUM 8.8 mg/dl (8.5-10.1); CREATININE 1.04 mg/dl (0.60-1.40); POTASSIUM 4.9 mmol/L (3.5-5.1)
[2017-11-25 05:52] LABS: BASO % 0.1 %; BASO ABS # 0.01 K/uL (0-0.2); EOS % 0.1 %; EOS ABS # 0.02 K/uL (0-0.5); IG# 0.07 K/uL (0.00-0.02); LYMPH % 4.9 %; LYMPH ABS # 0.88 K/uL (1.2-3.4); MONO % 6.8 %; MONO ABS # 1.21 K/uL (0.11-0.59); NEUT % 87.7 %; NEUT ABS # 15.72 K/uL (1.4-6.5)
[2017-11-25] MEDS: PIPERACILL/TAZOBAC IV 3.375 GM in DEXTROSE 5% 100ML 100 ML IV SCH ×3 (05:54→20:11)
[2017-11-25] MEDS: NYSTATIN SUSP 500,000 U/5 ML UDC PO SCH ×4 (05:54→23:32)
--- NOTE | 2017-11-25 06:41 | DIAGNOSTIC IMAGING REPORT ---
(CHEST FOR PE) ANGIO WITH CT DOSE: 655.48 mGy.cm HISTORY: 62 years-old Male presents with acute atypical chest pain with history of recent DVT TECHNIQUE: Multiple CTA images of the chest were obtained after the intravenous administration of 92 ml Optiray 320. Coronal and sagittal MIPS were obtained from the axial data set and were submitted for review. A dose lowering technique was utilized adhering to the principles of ALARA. COMPARISON: Chest radiograph of same day, duplex venous Doppler study 11/16/2017. FINDINGS: CTA: Heart is normal in size without pericardial effusion. Thoracic aorta is normal in course and caliber without aneurysm or dissection. Moderate atherosclerotic plaquing of the aorta. The pulmonary material tree is opacified to level the proximal segmental branches. The distal segmental and subsegmental branches are obscured due to respiratory motion also not well opacified secondary to contrast bolus timing. Nonocclusive pulmonary emboli are seen within the distal portion of the right lower lobar pulmonary artery extending into segmental branches of the right lower lobe as seen on image 172 series 4 and image 141 series 4. No evidence of right heart strain. CT CHEST: Thyroid is homogeneous. Mildly prominent right paratracheal lymph nodes measuring up to 8 mm likely reactive. No pleural effusion or pneumothorax. Patchy bronchovascular distribution of groundglass and consolidative opacities are present within the left upper lobe, bilateral basal lower lobes, inferior segment lingula and superior segment of the left lower lobe. No definite evidence of pulmonary infarction. Mild centrilobular emphysema. Areas of mild bronchial wall thickening are noted with mucoid impaction, notably within the lower lobes. No acute upper modality of the imaged upper abdomen. The left kidney is not imaged and may be absent. 1.4 cm right adrenal adenoma. Soft tissues are unremarkable. Intervally imaged gastrostomy tube. Multiple remote right-sided rib fractures. IMPRESSION: 1. Age-indeterminate nonocclusive pulmonary emboli are seen within the distal portion of the right lower lobar pulmonary artery extending into segmental branches of the right lower lobe. No evidence of right heart strain. 2. Patchy groundglass and consolidative opacities within a multilobar multisegmental distribution, notably within the left lower lobe are compatible with bronchopneumonia with associated bronchitis and areas of mucoid impaction. The above report was generated using voice recognition software. It may contain grammatical, syntax or spelling errors. Electronically signed by: Carloz Saldivar M.D. 11/25/2017 6:39 AM Dictated Date/Time: 11/25/2017 6:31 AM
[2017-11-25] MEDS: ALBUT/IPRATROP 3MG/0.5MG NEB 3 ML VIAL INH SCH ×4 (07:10→19:05)
[2017-11-25] MEDS: BUDESONIDE 0.5 MG/2 ML VIAL (PULMICORT) INH SCH ×4 (07:10→19:05)
[2017-11-25] MEDS: ASPIRIN 81 MG ECTAB PO SCH (08:10)
[2017-11-25] MEDS: CITALOPRAM 40 MG TAB PEG SCH (08:10)
[2017-11-25] MEDS: LACTOBACILLUS ACIDOPHILUS (FLORANEX) TAB PEG SCH ×3 (08:10→20:11)
[2017-11-25] MEDS: LEVETIRACETAM ORAL SOLN 100MG/ML PEG SCH ×2 (08:10→20:12)
[2017-11-25] MEDS: CARBAMAZEPINE 200 MG TAB PEG SCH ×2 (08:10→16:29)
[2017-11-25] MEDS: INSULIN ASPART 100 UNITS/ML 3 ML PEN SC SCH ×4 (08:14→19:55)
[2017-11-25] MEDS: INSULIN GLARGINE SOLOSTAR 100 UNITS/ML 3 ML PEN SC SCH (08:15)
[2017-11-25] MEDS ORDERED: VANCOMYCIN INJ 1,000 MG in SODIUM CHLORIDE 0.9% 250ML 250 ML IV SCH ×6 (09:00)
[2017-11-25] MEDS ORDERED: WARFARIN SOD 4 MG TAB PEG SCH (16:00)
[2017-11-25] MEDS ORDERED: WARFARIN SOD 2 MG TAB PEG SCH (16:00)
--- NOTE | 2017-11-25 16:48 | Family Medicine Progress Note ---
Progress Note Date of Service Nov 25, 2017. Subjective Pt evaluation today including: physical exam, chart review, lab review Unable to obtain history due to patient's expressive aphasia and intellectual disability Additional Comments: unable to obtain pt ROS due to expressive aphasia and intellectual disability Objective Vital Signs Date Time Temp Pulse Resp B/P (MAP) Pulse Ox O2 Delivery O2 Flow Rate FiO2 11/25/17 16:00 36.5 75 18 110/62 (78) 96 75 11/25/17 16:00 Room Air 11/25/17 14:23 91 20 95 Room Air 11/25/17 12:00 Room Air 11/25/17 11:42 36.7 95 20 115/77 (90) 100 Oxymask 7.0 11/25/17 11:40 94 20 92 Room Air 11/25/17 08:00 Oxymask 6.0 11/25/17 08:00 Oxymask 6.0 11/25/17 07:38 37.1 101 24 115/79 (91) 96 Oxymask 6.0 11/25/17 07:21 94 20 100 Mask 10.0 11/25/17 05:21 95 99 50 11/25/17 04:43 BiPAP 11/25/17 04:25 36.8 98 20 104/75 (85) 98 BiPAP 11/25/17 01:44 36.9 92 20 114/74 96 BiPAP 50 11/25/17 01:27 94 20 97/67 97 11/25/17 01:00 92 20 97/69 97 BiPAP 11/25/17 00:00 99 20 100/75 96 BiPAP 11/24/17 23:30 108 20 110/76 96 BiPAP 11/24/17 23:00 107 24 116/73 97 BiPAP 11/24/17 22:20 95 BiPAP 50 11/24/17 22:09 144 11/24/17 22:03 155 99 50 11/24/17 21:35 93 CPAP 11/24/17 21:35 39.5 150 32 105/78 97 BiPAP Physical Exam General Appearance: + mild distress Respiratory/Chest: no respiratory distress, no accessory muscle use, + crackles , + rhonchi, + wheezing Cardiovascular: regular rate, rhythm, no edema, no murmur Abdomen: normal bowel sounds Neurologic/Psychiatric: + aphasia Skin: normal color, warm/dry, no rash Laboratory Results 11/25/17 04:48 Red Blood Count 4.10, Mean Corpuscular Volume 99.5, Mean Corpuscular Hemoglobin 32.2, Mean Corpuscular Hemoglobin Concent 32.4, Mean Platelet Volume 10.2, Neutrophils (%) (Auto) 87.7, Lymphocytes (%) (Auto) 4.9, Monocytes (%) (Auto) 6.8, Eosinophils (%) (Auto) 0.1, Basophils (%) (Auto) 0.1, Neutrophils # (Auto) 15.72, Lymphocytes # (Auto) 0.88, Monocytes # (Auto) 1.21, Eosinophils # (Auto) 0.02, Basophils # (Auto) 0.01 11/25/17 04:48 Test 11/24/17 22:00 11/24/17 22:09 11/24/17 22:48 11/24/17 23:50 Activated Partial Thromboplast Time 28.9 SECONDS (21.0-31.0) Partial Thromboplastin Ratio 1.1 Magnesium Level 1.9 mg/dl (1.8-2.4) Total Bilirubin 0.4 mg/dl (0.2-1) Aspartate Amino Transf (AST/SGOT) 13 U/L (15-37) Alanine Aminotransferase (ALT/SGPT) 49 U/L (12-78) Alkaline Phosphatase 90 U/L (45-117) Total Protein 8.1 gm/dl (6.4-8.2) Albumin 3.5 gm/dl (3.4-5.0) Globulin 4.6 gm/dl (2.5-4.0) Albumin/Globulin Ratio 0.8 (0.9-2) Bedside Lactic Acid Venous 3.84 mmol/L (0.90-1.70) Influenza Type A Antigen Neg for Influ A (NEG) Influenza Type B Antigen Neg for Influ B (NEG) Urine Color DK YELLOW Urine Appearance CLEAR (CLEAR) Urine pH 5.0 (4.5-7.5) Urine Specific Winn 1.028 (1.000-1.030) Urine Protein NEG (NEG) Urine Glucose (UA) 1+ (NEG) Urine Ketones TRACE (NEG) Urine Occult Blood NEG (NEG) Urine Nitrite NEG (NEG) Urine Bilirubin NEG (NEG) Urine Urobilinogen NEG (NEG) Urine Leukocyte Esterase NEG (NEG) Urine WBC (Auto) 1-5 /hpf (0-5) Urine RBC (Auto) 0-4 /hpf (0-4) Urine Hyaline Casts (Auto) 1-5 /lpf (0-5) Urine Epithelial Cells (Auto) 10-20 /lpf (0-5) Urine Bacteria (Auto) NEG (NEG) Test 11/25/17 00:23 11/25/17 04:48 11/25/17 08:35 11/25/17 16:11 Blood Gas Sample Site R Radial Bedside Blood Gas pH (LAB) 7.31 (7.35-7.45) Bedside Blood Gas pCO2 (LAB) 43 mmHg (35-46) Bedside Blood Gas pO2 (LAB) 129 mmHg (80-95) Bedside Blood Gas HCO3 (LAB) 22 meq/L (19-24) Bedside Blood Gas Total CO2 23 mEq/l (24-31) Bedside Blood Gas Base Excess (LAB) -4.0 meq/L (-9-1.8) Bedside Blood Gas O2 Saturation 98.0 % (90-95) Emmanuel Test Pass Oxygen Delivery Device BIPAP Bedside Oxygen Rate (breaths/min) 20 Bedside FiO2 50 % Blood Gas IPAP 12 White Blood Count 17.91 K/uL (4.8-10.8) Red Blood Count 4.10 M/uL (4.7-6.1) Hemoglobin 13.2 g/dL (14.0-18.0) Hematocrit 40.8 % (42-52) Mean Corpuscular Volume 99.5 fL (80-100) Mean Corpuscular Hemoglobin 32.2 pg (25-34) Mean Corpuscular Hemoglobin Concent 32.4 g/dl (32-36) Platelet Count 311 K/uL (130-400) Mean Platelet Volume 10.2 fL (7.4-10.4) Neutrophils (%) (Auto) 87.7 % Lymphocytes (%) (Auto) 4.9 % Monocytes (%) (Auto) 6.8 % Eosinophils (%) (Auto) 0.1 % Basophils (%) (Auto) 0.1 % Neutrophils # (Auto) 15.72 K/uL (1.4-6.5) Lymphocytes # (Auto) 0.88 K/uL (1.2-3.4) Monocytes # (Auto) 1.21 K/uL (0.11-0.59) Eosinophils # (Auto) 0.02 K/uL (0-0.5) Basophils # (Auto) 0.01 K/uL (0-0.2) RDW Standard Deviation 51.0 fL (36.4-46.3) RDW Coefficient of Variation 14.2 % (11.5-14.5) Immature Granulocyte % (Auto) 0.4 % Immature Granulocyte # (Auto) 0.07 K/uL (0.00-0.02) Toxic Vacuolation 1+ Dohle Bodies 1+ Prothrombin Time 18.1 SECONDS (9.0-12.0) Prothromb Time International Ratio 1.7 (0.9-1.1) Anion Gap 8.0 mmol/L (3-11) Est Creatinine Clear Calc Drug Dose 87.9 ml/min Estimated GFR () 90.0 Estimated GFR (Non- 77.7 BUN/Creatinine Ratio 21.2 (10-20) Calcium Level 8.8 mg/dl (8.5-10.1) Lactic Acid Level 2.8 mmol/L (0.4-2.0) Bedside Glucose 171 mg/dl (70-99) Date/Time Source Procedure Growth Status 11/25/17 02:10 Nasal MRSA DNA Surveillance Screen - Final Specimen Negative for MRSA by DNA Probe Complete Assessment and Plan 62 y/o M PMHx HTN, DMII, CKD, seizures, COPD, CVA with R hemiplegia and aphasia presented from [facility] with hypoxia and tachycardia and admitted for pneumonia. Presenting for a NH where he was found spitting up/gurgling his tube feeds. He was hypoxic on arrival to the ER. Initial labs reveal leukocytosis and an elevated lactic acid. He is noncommunicative and cannot provide any further info. 11/25 Mr. Kim, [facility] of intellectual disability is a resident of [facility] senior living in [place] since 2007. In September, he suffered a stroke that left him expressive aphasia and dysphagia. He had since been in [facility] for rehab. He was treated at [facility] for aspiration PNA and discharged 2 days ago to return again last night with respiratory distress, hypoxia. Spoke with his complex case manager; Trisha Acevedo [phone]--she will be visiting the patient while he is in the hospital. She says that he has had limited contact with family over the years. Trisha is his designated POA. She states that as a requirement of his halfway his resuscitation status is full code. She does relate that in circumstances this can changed if the patient is in a coma requiring mechanical ventilation. Will follow up on this. Also spoke with the primary from [facility] as well as his sister Trudy Pittman. Sepsis 2/2 pneumonia with acute hypoxic respiratory failure - febrile, tachycardic, hypotensive, leukocytosis - Continue BiPAP. Wean as tolerated to maintain sats>92% - IV abx: Zosyn - MRSA negative, dc vanc - Blood cultures pending - IVF NSS @ 100cc/hr - Aspiration precautions - maintain HOB elevations above 30 degrees - Possible Jpeg dysfunction?--GI consult, appreciate recommendations Recent extensive DVTs bilaterally - INR subtherapeutic 1.7 on admission, added 2mg to today's dose - CT found age-indeterminate PE. - Recent echo without evidence of significant heart strain - has evidence of mildly dilated R atrium and ventricle; presence of PFO - Trend INR H/O CVA with Seizure Disorder - R hemiplegia, aphasia, dysphagia - MCA thrombosis - Continue aspirin, atorvastatin daily - Continue Tegretol 200 mg QID and 100 mg HS; Keppra 1000 mg BID COPD without Exacerbation: unknown severity - Continue DuoNeb and Pulmicort T2DM - Continue home Lantus regimen. Hold metformin. - BG checks ac/hs CKD Stage II: -STABLE VTE ppx - SCDs - Warfarin as above FULL CODE Reviewed: Pt Seen/Exam by Me History verbally minimally responsive. Constitutional: denies: fever General Appearance: no apparent distress (blankly staring during interview) Respiratory: rhonchi, other (upper airway conducted sounds) Cardiovascular: regular rate, rhythm Gastrointestinal: soft (PEG in place) Neurologic/Psychiatric: alert Skin Characteristics: warm/dry Assessment/Plan Resident Physician Supervision Note: I independently interviewed and examined the patient and verified the hyman history and physical, reviewed labs and image studies, discussed the case with the resident Dr. Stein and agree with the findings and care plan.
[2017-11-25] MEDS ORDERED: FIBERSOURCE~STOP ORDER ONE (17:00)
[2017-11-25] MEDS ORDERED: GLUCAGON FOR INJ 1 MG VIAL SQ PRN (19:15)
[2017-11-25] MEDS ORDERED: GLUCOSE 10 TABS/TUBE PO PRN (19:15)
[2017-11-25] MEDS ORDERED: GLUCOSE 40% GEL 15 GM TUBE PO PRN (19:15)
[2017-11-25] MEDS: ATORVASTATIN 20 MG TAB PEG SCH (20:11)
[2017-11-25] MEDS: CARBAMAZEPINE 100 MG CHEW TAB PEG SCH (20:13)
[2017-11-25] MEDS: INSULIN GLARGINE SOLOSTAR 100 UNITS/ML 3 ML PEN SQ SCH (20:21)
--- NOTE | 2017-11-25 20:23 | GASTROINTESTINAL CONSULTATION ---
DATE OF CONSULTATION: 11/25/2017 CHIEF COMPLAINT: Recurrent aspiration pneumonia, PEG tube evaluation. HISTORY OF PRESENT ILLNESS: Mr. Bergman is a 62-year-old white male with a past medical history of hypertension, type 2 diabetes, chronic kidney disease, seizure disorder, COPD, recent CVA with right hemiplegia and aphasia who presents from [facility] with hypoxemia and a tachycardia and found to have a recurrent aspiration pneumonia. The patient recently was discharged from a bout of the same a few days ago. The patient was found to be hypoxic and presented back to the Emergency Room. The patient is also on CPAP which was changed to BiPAP. The patient unfortunately is nonverbal and this history is obtained solely through the available medical records. All relevant labs and imaging studies were reviewed. PAST MEDICAL HISTORY: Described above. In addition, there is a history of depression and GERD. The patient apparently had a PEG placement, perhaps at [facility], although the details are not clear where he presumably was hospitalized for the neurologic event. In speaking with the nurse who has been caring for the patient it may be that the patient's tube feeds have been occurring with the patient in a horizontal or near horizontal position without aspiration precautions. FAMILY HISTORY: Unobtainable. SOCIAL HISTORY: The patient is single. Smoking status could not be verified. ALLERGIES: ALLERGIC TO PSEUDOEPHEDRINE AND BEE VENOM. HOME MEDICATIONS: Include amoxicillin, aspirin, atorvastatin, budesonide, Tegretol, citalopram, guaifenesin, home O2, insulin, DuoNebs, lactobacillus, levetiracetam, metformin, nutritional supplement, Nystatin, warfarin. REVIEW OF SYSTEMS: Unobtainable. PHYSICAL EXAMINATION: VITAL SIGNS: The patient on admission last evening at 2130 with temperature of 39.5, heart rate 150, respirations 32, blood pressure 105/78, 97% on BiPAP. Subsequent assessment show the patient's temperature curve fell towards normal with improvement in his vital signs, particularly respiratory rate and heart rate. GENERAL: The patient currently is in bed, nonverbal. He is arousable and does seem to track this provider. HEENT: The oral mucosa is parched. NECK: Appears to show normal range of motion. LUNGS: Show coarse breath sounds with rhonchi in both lung vasquez. HEART: The heart tachycardic is slightly tachycardic at 112 per minute. ABDOMEN: Soft, flat, nontender, nondistended with positive bowel sounds. The PEG tube site appears intact and well healed without evidence of induration, maceration, drainage and has a bumper setting that is approximately 3 cm from the skin. EXTREMITIES: Show no clubbing, cyanosis or edema. There are some abrasions on the shins, particularly on the right leg. LABORATORY STUDIES: On admission showed a white count of 13.7, hemoglobin 15.2, MCV 99, platelets 349,000. INR is 1.7, potassium 5.3, BUN and creatinine are 24 and 1.2, AST 13, ALT 49, alkaline phosphatase 90, total protein 8.1. IMAGING STUDIES: Chest shows hazy airspace opacity within the left mid lower lung zone that suggest pneumonia. A CT for PE protocol may suggest a nonocclusive PE that is age indeterminate in the right lower lobe field. There are dense airspace in the left lower lobe consistent with PNA. There is no cardiomegaly or effusion noted. IMPRESSION AND PLAN: I spoke with the house staff regarding the patient and this process of recurrent aspiration pneumonia and PEG tube. According to the nurse, the PEG tube actually functions well in order to deliver medications and feeding solutions. There is no difficulty in instillation or drawing material back. There are plans of the patient to have tube feeds from 9:00 p.m. to 5:00 p.m. and a 16 hour delivery overnight and through the daytime hours with arrest in the evenings. I believe the most important aspect of this would be to maintain, as best as possible, aspiration precautions while the tube feeds are beginning. In addition, checking residuals, particularly throughout the administration process and 1-2 hours after the completion of that days feeding tube may help better gauge whether the patient continues to be at risk for aspiration. The options to reposition the tube and provide a postpyloric source of feeding includes nasojejunal tubes which are problematic in that they are easily dislodged and clogged and are not available at [facility]. Second option is to change the current PEG tube to a PEG tube with a jejunal extension that with direct feeding tubes into the small bowel and reduce the chance of gastroesophageal reflux with aspiration into the airways. However, this tube is also not available at [facility]. Lastly, the most durable approach would be to maintain the PEG tube for aspiration precautions and to vent as needed and have surgery place a surgically placed jejunostomy tube for enteral feedings. In the meantime, we would continue the current course of therapy and if there is any question about the position or residuals then it may be helpful to have surgery see the patient for consideration of surgically placed jejunostomy tube. We will follow with you.
[2017-11-25] MEDS: PEPTAMEN 1.5 CAL 1000ML BAG PEG SCH (20:34)
[2017-11-25] MEDS ORDERED: FIBERSOURCE HN 1000ML BAG PO SCH (21:00)
[2017-11-26] VITALS (12 sets, daily range): BP systolic 109–133; BP diastolic 65–78; PULSE 81–93; TEMP 36.3–37.7; O2SAT 89–96
[2017-11-26] MEDS: NYSTATIN SUSP 500,000 U/5 ML UDC PO SCH ×4 (03:48→22:40)
[2017-11-26] MEDS: PIPERACILL/TAZOBAC IV 3.375 GM in DEXTROSE 5% 100ML 100 ML IV SCH ×3 (03:56→19:54)
[2017-11-26] MEDS: ALBUT/IPRATROP 3MG/0.5MG NEB 3 ML VIAL INH SCH ×4 (07:03→19:39)
[2017-11-26] MEDS: BUDESONIDE 0.5 MG/2 ML VIAL (PULMICORT) INH SCH ×4 (07:03→19:40)
[2017-11-26] MEDS ORDERED: NURSING VERBAL MED ORDER ONE (07:30)
[2017-11-26 07:42] LABS: INR 2.9 (0.9-1.1)
[2017-11-26 07:58] LABS: CALCIUM 8.7 mg/dl (8.5-10.1); CREATININE 0.63 mg/dl (0.60-1.40); POTASSIUM 3.6 mmol/L (3.5-5.1)
[2017-11-26 08:05] LABS: BASO % 0.2 %; BASO ABS # 0.03 K/uL (0-0.2); EOS % 1.3 %; EOS ABS # 0.23 K/uL (0-0.5); HEMOGLOBIN 10.4 g/dL (14.0-18.0); IG# 0.03 K/uL (0.00-0.02); LYMPH ABS # 1.03 K/uL (1.2-3.4); MEAN CELL VOLUME 98.8 fL (80-100); MEAN CORPUSCULAR HEMOGLOBIN 32.1 pg (25-34); MEAN CORPUSCULAR HGB CONC 32.5 g/dl (32-36); MEAN PLATELET VOLUME 10.2 fL (7.4-10.4); MONO % 7.7 %; MONO ABS # 1.32 K/uL (0.11-0.59); NEUT % 84.6 %; NEUT ABS # 14.44 K/uL (1.4-6.5); PLATELET COUNT 278 K/uL (130-400); RED CELL DISTRIBUTION WIDTH CV 14.2 % (11.5-14.5); RED CELL DISTRIBUTION WIDTH SD 50.8 fL (36.4-46.3); WHITE BLOOD COUNT 17.08 K/uL (4.8-10.8)
[2017-11-26] MEDS: ASPIRIN 81 MG ECTAB PO SCH (09:00)
[2017-11-26] MEDS: LACTOBACILLUS ACIDOPHILUS (FLORANEX) TAB PEG SCH ×3 (09:12→20:28)
[2017-11-26] MEDS: CARBAMAZEPINE 200 MG TAB PEG SCH ×2 (09:12→16:56)
[2017-11-26] MEDS: SODIUM CHLORIDE 0.9% 1000ML 1,000 ML IV SCH (09:12)
[2017-11-26] MEDS: CITALOPRAM 40 MG TAB PEG SCH (09:12)
[2017-11-26] MEDS: LEVETIRACETAM ORAL SOLN 100MG/ML PEG SCH ×2 (09:13→20:27)
[2017-11-26] MEDS: INSULIN GLARGINE SOLOSTAR 100 UNITS/ML 3 ML PEN SC SCH (09:19)
[2017-11-26] MEDS: INSULIN ASPART 100 UNITS/ML 3 ML PEN SC SCH ×3 (09:20→17:58)
--- NOTE | 2017-11-26 09:55 | Family Medicine Progress Note ---
Progress Note Date of Service Nov 26, 2017. Subjective Pt evaluation today including: physical exam, chart review, lab review Patient has intellectual disability and expressive aphasia. Unable to obtain HPI. Additional Comments: Unable to obtain ROS due to mental status Medications Current Inpatient Medications Medications (Trade) Dose Ordered Sig/Valerie Route Start Time Stop Time Status Last Admin Dose Admin Ioversol (Optiray 320) 111 ml UD PRN IV 11/25/17 00:00 11/29/17 00:00 Acetaminophen (Tylenol Tab) 650 mg Q4H PRN PO 11/25/17 00:45 12/25/17 00:44 Al Hydrox/Mg Hydrox/Simethicone (Maalox Max Susp) 15 ml Q4H PRN PO 11/25/17 00:45 12/25/17 00:44 Ondansetron HCl (Zofran Inj) 4 mg Q6H PRN IV 11/25/17 00:45 12/25/17 00:44 Nitroglycerin (Nitrostat Tab) 0.4 mg UD PRN SL 11/25/17 00:45 12/25/17 00:44 Polyethylene (Miralax Powder Packet) 17 gm DAILY PRN PO 11/25/17 00:45 12/25/17 00:44 Piperacillin Sod/ Tazobactam Sod 3.375 gm/Dextrose 115 ml @ 28 mls/hr Q8H IV 11/25/17 04:00 12/02/17 03:59 11/26/17 03:56 28 MLS/HR Miscellaneous Information (Consult) 1 ea UD PRN N/A 11/25/17 00:45 12/25/17 00:44 Sodium Chloride 1,000 ml @ 100 mls/hr Q10H IV 11/25/17 02:00 12/25/17 01:59 11/26/17 09:12 100 MLS/HR Aspirin (Ecotrin Tab) 81 mg QAM PO 11/25/17 09:00 12/25/17 08:59 Atorvastatin Calcium (Lipitor Tab) 20 mg HS PEG 11/25/17 21:00 12/25/17 20:59 11/25/17 20:11 20 MG Bisacodyl (Dulcolax Tab) 10 mg DAILY PRN PEG 11/25/17 00:45 12/25/17 00:44 Citalopram Hydrobromide (celeXA TAB) 40 mg QAM PEG 11/25/17 09:00 12/25/17 08:59 11/26/17 09:12 40 MG Insulin Glargine (Lantus Solostar Pen) 8 units QAM SC 11/25/17 09:00 12/25/17 08:59 11/26/17 09:19 8 UNITS Insulin Glargine (Lantus Solostar Pen) 12 units QPM SQ 11/25/17 21:00 12/25/17 20:59 11/25/17 20:21 12 UNITS Albuterol/ Ipratropium (Duoneb) 3 ml QIDR INH 11/25/17 08:00 12/25/17 07:59 11/26/17 07:03 3 ML Lactobacillus Acidophilus (Floranex Tab) 1 tab TID PEG 11/25/17 09:00 12/25/17 08:59 11/26/17 09:12 1 TAB Levetiracetam (Keppra Soln) 1,000 mg BID PEG 11/25/17 09:00 12/25/17 08:59 11/26/17 09:13 1,000 MG Magnesium Hydroxide (Milk Of Magnesia Susp) 30 ml DAILY PRN PEG 11/25/17 00:45 12/25/17 00:44 Nystatin (Mycostatin Susp) 5 ml Q6H PO 11/25/17 06:00 12/05/17 05:59 11/25/17 05:54 5 ML Budesonide (Pulmicort Respules 0.5MG/ 2ML Neb Soln) 1 mg QIDR INH 11/25/17 08:00 12/25/17 07:59 11/26/17 07:03 1 MG Carbamazepine (Tegretol Chew Tab) 100 mg HS PEG 11/25/17 21:00 12/25/17 20:59 11/25/17 20:13 100 MG Carbamazepine (Tegretol Tab) 400 mg BID17 PEG 11/25/17 09:00 12/25/17 08:59 11/26/17 09:12 400 MG Glucagon (Glucagon Inj) 1 mg UD PRN SQ 11/25/17 19:15 12/25/17 19:14 Glucose (Glucose 40% Gel) 15-30 GRAMS 15 GRAMS... UD PRN PO 11/25/17 19:15 12/25/17 19:14 Glucose (Glucose Chew Tab) 4-8 Tablets 4 Tabl... UD PRN PO 11/25/17 19:15 12/25/17 19:14 Enteral Nutritional Formula (Peptamen 1.5) 1,000 ml UD PEG 11/25/17 15:00 12/25/17 14:59 11/25/17 20:34 1,000 ML Insulin Aspart (novoLOG ASPART) SLIDING SCALE If C... Q6 SC 11/26/17 12:00 12/26/17 11:59 11/26/17 09:20 3 UNITS Warfarin Sodium (Coumadin Tab) 5 mg DAILY@1600 PEG 11/26/17 16:00 12/25/17 15:59 Objective Vital Signs Date Time Temp Pulse Resp B/P (MAP) Pulse Ox O2 Delivery O2 Flow Rate FiO2 11/26/17 08:02 37.1 89 18 109/71 (84) 89 4.0 11/26/17 07:03 81 20 91 Room Air 11/26/17 04:00 Room Air 11/26/17 03:22 36.8 93 18 121/74 (90) 93 11/26/17 00:08 37.3 93 18 121/72 (88) 90 11/26/17 00:00 Room Air 11/25/17 20:00 Room Air 11/25/17 19:36 36.8 90 16 115/61 (79) 95 11/25/17 19:05 87 20 93 Room Air 11/25/17 16:00 36.5 75 18 110/62 (78) 96 75 11/25/17 16:00 Room Air 11/25/17 14:23 91 20 95 Room Air 11/25/17 12:00 Room Air 11/25/17 11:42 36.7 95 20 115/77 (90) 100 Oxymask 7.0 11/25/17 11:40 94 20 92 Room Air Physical Exam General Appearance: WD/WN, no apparent distress Respiratory/Chest: no respiratory distress, no accessory muscle use, + rhonchi , + wheezing Cardiovascular: regular rate, rhythm, no edema, no gallop, no murmur Skin: normal color, warm/dry, no rash Laboratory Results 11/26/17 07:15 Red Blood Count 3.24, Mean Corpuscular Volume 98.8, Mean Corpuscular Hemoglobin 32.1, Mean Corpuscular Hemoglobin Concent 32.5, Mean Platelet Volume 10.2, Neutrophils (%) (Auto) 84.6, Lymphocytes (%) (Auto) 6.0, Monocytes (%) (Auto) 7.7, Eosinophils (%) (Auto) 1.3, Basophils (%) (Auto) 0.2, Neutrophils # (Auto) 14.44, Lymphocytes # (Auto) 1.03, Monocytes # (Auto) 1.32, Eosinophils # (Auto) 0.23, Basophils # (Auto) 0.03 11/26/17 07:15 Test 11/26/17 07:15 11/26/17 08:00 White Blood Count 17.08 K/uL (4.8-10.8) Red Blood Count 3.24 M/uL (4.7-6.1) Hemoglobin 10.4 g/dL (14.0-18.0) Hematocrit 32.0 % (42-52) Mean Corpuscular Volume 98.8 fL (80-100) Mean Corpuscular Hemoglobin 32.1 pg (25-34) Mean Corpuscular Hemoglobin Concent 32.5 g/dl (32-36) Platelet Count 278 K/uL (130-400) Mean Platelet Volume 10.2 fL (7.4-10.4) Neutrophils (%) (Auto) 84.6 % Lymphocytes (%) (Auto) 6.0 % Monocytes (%) (Auto) 7.7 % Eosinophils (%) (Auto) 1.3 % Basophils (%) (Auto) 0.2 % Neutrophils # (Auto) 14.44 K/uL (1.4-6.5) Lymphocytes # (Auto) 1.03 K/uL (1.2-3.4) Monocytes # (Auto) 1.32 K/uL (0.11-0.59) Eosinophils # (Auto) 0.23 K/uL (0-0.5) Basophils # (Auto) 0.03 K/uL (0-0.2) RDW Standard Deviation 50.8 fL (36.4-46.3) RDW Coefficient of Variation 14.2 % (11.5-14.5) Immature Granulocyte % (Auto) 0.2 % Immature Granulocyte # (Auto) 0.03 K/uL (0.00-0.02) Prothrombin Time 29.7 SECONDS (9.0-12.0) Prothromb Time International Ratio 2.9 (0.9-1.1) Anion Gap 7.0 mmol/L (3-11) Est Creatinine Clear Calc Drug Dose 145.0 ml/min Estimated GFR () 124.1 Estimated GFR (Non- 107.1 BUN/Creatinine Ratio 21.2 (10-20) Calcium Level 8.7 mg/dl (8.5-10.1) Bedside Glucose 215 mg/dl (70-99) Assessment and Plan 62 y/o M PMHx HTN, DMII, CKD, seizures, COPD, CVA with R hemiplegia and aphasia presented from [facility] with hypoxia and tachycardia and admitted for pneumonia. Presenting for a NH where he was found spitting up/gurgling his tube feeds. He was hypoxic on arrival to the ER. Initial labs reveal leukocytosis and an elevated lactic acid. He is noncommunicative and cannot provide any further info. 2/9 Patient continues to have bilateral wheezing and rhonchi. Will continue Zosyn, chest physiotherapy, breathing treatments. GI recommends aspiration precaution, evaluation of residuals. No changes with PEG at this time. Patient's INR 2.9. Will bring Coumadin down to 5 mg today. See bottom of the note for more information regarding code status/social situation. Sepsis 2/2 pneumonia with acute hypoxic respiratory failure - febrile, tachycardic, hypotensive, leukocytosis - Likely sec to aspiration - Maintain sats>92%. Wean O2 accordingly. - IV abx: Zosyn - MRSA negative, dc vanc - Blood cultures pending - DC'ed IVF - Aspiration precautions - maintain HOB elevations above 30 degrees, follow residuals - GI following; appreciate recs Recent extensive DVTs bilaterally - INR 2.9 today, bringing dose down to 5mg today - CT found age-indeterminate PE. - Recent echo without evidence of significant heart strain - has evidence of mildly dilated R atrium and ventricle; presence of PFO - Trend INR H/O CVA with Seizure Disorder - R hemiplegia, aphasia, dysphagia - MCA thrombosis - Continue aspirin, atorvastatin daily - Continue Tegretol 200 mg QID and 100 mg HS; Keppra 1000 mg BID COPD without Exacerbation: unknown severity - Continue DuoNeb and Pulmicort T2DM - Continue home Lantus regimen. Hold metformin. - BG checks ac/hs CKD Stage II: -STABLE VTE ppx - SCDs - Warfarin as above FULL CODE Mr. Kim, [facility] of intellectual disability is a resident of [facility] skilled nursing in [place] since 2007. In September, he suffered a stroke that left him expressive aphasia and dysphagia. He had since been in [facility] for rehab. He was treated at [facility] for aspiration PNA and discharged earlier this week to return 11/25 with respiratory distress, hypoxia. Spoke with his clinical case manager; Trisha Acevedo [phone]--she will be visiting the patient while he is in the hospital. She says that he has had limited contact with family over the years. Trisha is his designated POA. She states that as a requirement of his assisted his resuscitation status is full code. She does relate that in circumstances this can changed if the patient is in a coma requiring mechanical ventilation. Will follow up on this. Also spoke with the primary from [facility] as well as his sister Trudy Pittman. Reviewed: Pt Seen/Exam by Me History not holding any conversation Constitutional: denies: fever General Appearance: no apparent distress (blank stare during interview) Respiratory: no respiratory distress, rhonchi (decreased ), other (oxymask +) Cardiovascular: regular rate, rhythm Gastrointestinal: soft Neurologic/Psychiatric: alert Skin Characteristics: warm/dry Assessment/Plan Resident Physician Supervision Note: I independently interviewed and examined the patient and verified the hyman history and physical, reviewed labs and image studies, discussed the case with the resident Dr. Stein and agree with the findings and care plan.
[2017-11-26] MEDS: WARFARIN SOD 5 MG TAB PEG SCH (16:56)
--- NOTE | 2017-11-26 17:51 | GASTROENTEROLOGY PROGRESS NOTE ---
DATE: 11/26/2017 SUBJECTIVE: Chart reviewed, patient examined. The patient is nonverbal but is more alert than yesterday. His review of systems are unobtainable. Vital signs, currently patient afebrile at 36.3, although at 12:30 this afternoon was 37.7, blood pressure 129/69, 98% on room air, 90%, heart rate, respirations 18. The patient was later placed on 4 liters of O2. The patient had Peptamen tube feeds started yesterday with an increasing rate and 16 hour delivery. The patient is currently up to 60 mL an hour and seems to be tolerating this well without any sense of coughing or choking and the nurse reports that the residuals have on either 1 or 2 mL of material being aspirated. The tube seems to function well and has been also for medication delivery. REVIEW OF SYSTEMS: Unobtainable. OBJECTIVE: VITAL SIGNS: As above. HEENT: The patient sclerae are anicteric, conjunctivae moist. LUNGS: Show course breath sounds with a gurgling sensation throughout the right chest bilaterally. HEART: Distant sounds but normal S1, S2. ABDOMEN: Soft, without rebound or guarding. The tube site is clean and intact. EXTREMITIES: Without edema. RECTAL: Deferred. IMPRESSION: The patient seems to be doing well with the current rate at 60 mL an hour of gastric tube feeds with elemental solution. There has been no meaningful residuals despite this rate. The patient is receiving these with aspiration precautions and this seems to be effective. The patient has not had a bowel movement, but this may occur as the tube feeds continue if not a bowel regimen may helpful with inclusion of lactulose through the tube. At the present time, the tube is functioning and will sign off for now. However, if there is any concern of recurrent aspiration or inability to tolerate tube feed, would consider some of the options on yesterday's note. All questions answered. We will sign off at this time. If needed Dr. Pineda is covering the GI service on this weekend.
[2017-11-26] MEDS: ATORVASTATIN 20 MG TAB PEG SCH (20:27)
[2017-11-26] MEDS: CARBAMAZEPINE 100 MG CHEW TAB PEG SCH (20:27)
[2017-11-26] MEDS: INSULIN GLARGINE SOLOSTAR 100 UNITS/ML 3 ML PEN SQ SCH (21:40)
[2017-11-26] MEDS: PEPTAMEN 1.5 CAL 1000ML BAG PEG SCH (23:36)
[2017-11-27] VITALS (9 sets, daily range): BP systolic 124–138; BP diastolic 65–80; PULSE 77–90; TEMP 36.6–37.7; O2SAT 89–96
[2017-11-27] MEDS: PIPERACILL/TAZOBAC IV 3.375 GM in DEXTROSE 5% 100ML 100 ML IV SCH ×3 (04:20→19:43)
[2017-11-27] MEDS: NYSTATIN SUSP 500,000 U/5 ML UDC PO SCH ×3 (05:24→18:07)
[2017-11-27] MEDS: INSULIN ASPART 100 UNITS/ML 3 ML PEN SC SCH ×4 (06:19→18:09)
[2017-11-27] MEDS: BUDESONIDE 0.5 MG/2 ML VIAL (PULMICORT) INH SCH ×4 (07:13→19:13)
[2017-11-27] MEDS: ALBUT/IPRATROP 3MG/0.5MG NEB 3 ML VIAL INH SCH ×4 (07:13→19:13)
[2017-11-27] MEDS: LEVETIRACETAM ORAL SOLN 100MG/ML PEG SCH ×2 (08:41→20:17)
[2017-11-27] MEDS: LACTOBACILLUS ACIDOPHILUS (FLORANEX) TAB PEG SCH ×3 (08:42→20:17)
[2017-11-27] MEDS: ASPIRIN 81 MG ECTAB PO SCH (08:43)
[2017-11-27] MEDS: CARBAMAZEPINE 200 MG TAB PEG SCH ×2 (08:43→16:37)
[2017-11-27] MEDS: CITALOPRAM 40 MG TAB PEG SCH (08:43)
[2017-11-27] MEDS: INSULIN GLARGINE SOLOSTAR 100 UNITS/ML 3 ML PEN SC SCH (08:45)
[2017-11-27 09:42] LABS: BASO % 0.2 %; BASO ABS # 0.02 K/uL (0-0.2); EOS % 1.7 %; HEMATOCRIT 31.6 % (42-52); HEMOGLOBIN 10.2 g/dL (14.0-18.0); IG# 0.03 K/uL (0.00-0.02); LYMPH % 9.4 %; MEAN CELL VOLUME 98.1 fL (80-100); MEAN CORPUSCULAR HEMOGLOBIN 31.7 pg (25-34); MEAN CORPUSCULAR HGB CONC 32.3 g/dl (32-36); MEAN PLATELET VOLUME 10.1 fL (7.4-10.4); NEUT % 82.4 %; NEUT ABS # 9.62 K/uL (1.4-6.5); PLATELET COUNT 285 K/uL (130-400); RED CELL DISTRIBUTION WIDTH CV 14.2 % (11.5-14.5); RED CELL DISTRIBUTION WIDTH SD 51.4 fL (36.4-46.3); WHITE BLOOD COUNT 11.67 K/uL (4.8-10.8)
[2017-11-27 10:10] LABS: CALCIUM 8.9 mg/dl (8.5-10.1); CREATININE 0.59 mg/dl (0.60-1.40); POTASSIUM 3.6 mmol/L (3.5-5.1)
[2017-11-27] MEDS: WARFARIN SOD 5 MG TAB PEG SCH (16:00)
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
[2017-11-27] MEDS: PEPTAMEN 1.5 CAL 1000ML BAG PEG SCH (17:27)
[2017-11-27] MEDS: ATORVASTATIN 20 MG TAB PEG SCH (20:17)
[2017-11-27] MEDS: CARBAMAZEPINE 100 MG CHEW TAB PEG SCH (20:18)
[2017-11-27] MEDS ORDERED: NURSING DECISION MEDICATION ORDER SCH (20:30)
[2017-11-27] MEDS ORDERED: MICONAZOLE NITRATE POWDER 43 GM EXT PRN (20:45)
[2017-11-27] MEDS: INSULIN GLARGINE SOLOSTAR 100 UNITS/ML 3 ML PEN SQ SCH (21:58)
[2017-11-28] VITALS (13 sets, daily range): BP systolic 120–133; BP diastolic 67–83; PULSE 61–92; TEMP 36.9–38; O2SAT 91–100
[2017-11-28] MEDS: INSULIN ASPART 100 UNITS/ML 3 ML PEN SC SCH ×4 (01:09→18:06)
[2017-11-28] MEDS: PIPERACILL/TAZOBAC IV 3.375 GM in DEXTROSE 5% 100ML 100 ML IV SCH ×3 (04:10→19:54)
[2017-11-28] MEDS: NYSTATIN SUSP 500,000 U/5 ML UDC PO SCH ×4 (06:03→18:02)
[2017-11-28] MEDS: ALBUT/IPRATROP 3MG/0.5MG NEB 3 ML VIAL INH SCH ×4 (07:58→19:31)
[2017-11-28] MEDS: BUDESONIDE 0.5 MG/2 ML VIAL (PULMICORT) INH SCH ×4 (07:59→20:00)
[2017-11-28] MEDS: ASPIRIN 81 MG ECTAB PO SCH (08:46)
[2017-11-28] MEDS: LEVETIRACETAM ORAL SOLN 100MG/ML PEG SCH ×2 (08:46→20:39)
[2017-11-28] MEDS: CARBAMAZEPINE 200 MG TAB PEG SCH ×2 (08:47→16:28)
[2017-11-28] MEDS: INSULIN GLARGINE SOLOSTAR 100 UNITS/ML 3 ML PEN SC SCH (08:47)
[2017-11-28] MEDS: CITALOPRAM 40 MG TAB PEG SCH (08:48)
[2017-11-28] MEDS: LACTOBACILLUS ACIDOPHILUS (FLORANEX) TAB PEG SCH ×3 (08:48→20:39)
[2017-11-28 09:19] LABS: HEMATOCRIT 32.9 % (42-52); HEMOGLOBIN 10.8 g/dL (14.0-18.0); MEAN CELL VOLUME 97.6 fL (80-100); MEAN CORPUSCULAR HGB CONC 32.8 g/dl (32-36); MEAN PLATELET VOLUME 9.8 fL (7.4-10.4); PLATELET COUNT 301 K/uL (130-400); RED CELL DISTRIBUTION WIDTH SD 49.5 fL (36.4-46.3); WHITE BLOOD COUNT 9.55 K/uL (4.8-10.8)
[2017-11-28 09:28] LABS: INR 2.7 (0.9-1.1)
--- NOTE | 2017-11-28 09:55 | Family Medicine Progress Note ---
Progress Note Date of Service Nov 28, 2017. Subjective Pt evaluation today including: conversation w/ patient, physical exam, chart review, lab review, review of inpatient medication list Voiding: jeronimo catheter in place Unable to obtain hx given pt is nonverbal Additional Comments: Unable to obtain ROS as pt is nonverbal Medications Current Inpatient Medications Medications (Trade) Dose Ordered Sig/Valerie Route Start Time Stop Time Status Last Admin Dose Admin Ioversol (Optiray 320) 111 ml UD PRN IV 11/25/17 00:00 11/29/17 00:00 Acetaminophen (Tylenol Tab) 650 mg Q4H PRN PO 11/25/17 00:45 12/25/17 00:44 11/26/17 11:02 650 MG Al Hydrox/Mg Hydrox/Simethicone (Maalox Max Susp) 15 ml Q4H PRN PO 11/25/17 00:45 12/25/17 00:44 Ondansetron HCl (Zofran Inj) 4 mg Q6H PRN IV 11/25/17 00:45 12/25/17 00:44 Nitroglycerin (Nitrostat Tab) 0.4 mg UD PRN SL 11/25/17 00:45 12/25/17 00:44 Polyethylene (Miralax Powder Packet) 17 gm DAILY PRN PO 11/25/17 00:45 12/25/17 00:44 Piperacillin Sod/ Tazobactam Sod 3.375 gm/Dextrose 115 ml @ 28 mls/hr Q8H IV 11/25/17 04:00 12/02/17 03:59 11/28/17 04:10 28 MLS/HR Miscellaneous Information (Consult) 1 ea UD PRN N/A 11/25/17 00:45 12/25/17 00:44 Aspirin (Ecotrin Tab) 81 mg QAM PO 11/25/17 09:00 12/25/17 08:59 Atorvastatin Calcium (Lipitor Tab) 20 mg HS PEG 11/25/17 21:00 12/25/17 20:59 11/27/17 20:17 20 MG Bisacodyl (Dulcolax Tab) 10 mg DAILY PRN PEG 11/25/17 00:45 12/25/17 00:44 Citalopram Hydrobromide (celeXA TAB) 40 mg QAM PEG 11/25/17 09:00 12/25/17 08:59 11/28/17 08:48 40 MG Insulin Glargine (Lantus Solostar Pen) 8 units QAM SC 11/25/17 09:00 12/25/17 08:59 11/28/17 08:47 8 UNITS Insulin Glargine (Lantus Solostar Pen) 12 units QPM SQ 11/25/17 21:00 12/25/17 20:59 11/27/17 21:58 12 UNITS Albuterol/ Ipratropium (Duoneb) 3 ml QIDR INH 11/25/17 08:00 12/25/17 07:59 11/28/17 07:58 3 ML Lactobacillus Acidophilus (Floranex Tab) 1 tab TID PEG 11/25/17 09:00 12/25/17 08:59 11/28/17 08:48 1 TAB Levetiracetam (Keppra Soln) 1,000 mg BID PEG 11/25/17 09:00 12/25/17 08:59 11/28/17 08:46 1,000 MG Magnesium Hydroxide (Milk Of Magnesia Susp) 30 ml DAILY PRN PEG 11/25/17 00:45 12/25/17 00:44 Nystatin (Mycostatin Susp) 5 ml Q6H PO 11/25/17 06:00 12/05/17 05:59 11/28/17 06:03 5 ML Budesonide (Pulmicort Respules 0.5MG/ 2ML Neb Soln) 1 mg QIDR INH 11/25/17 08:00 12/25/17 07:59 11/28/17 07:59 1 MG Carbamazepine (Tegretol Chew Tab) 100 mg HS PEG 11/25/17 21:00 12/25/17 20:59 11/27/17 20:18 100 MG Carbamazepine (Tegretol Tab) 400 mg BID17 PEG 11/25/17 09:00 12/25/17 08:59 11/28/17 08:47 400 MG Glucagon (Glucagon Inj) 1 mg UD PRN SQ 11/25/17 19:15 12/25/17 19:14 Glucose (Glucose 40% Gel) 15-30 GRAMS 15 GRAMS... UD PRN PO 11/25/17 19:15 12/25/17 19:14 Glucose (Glucose Chew Tab) 4-8 Tablets 4 Tabl... UD PRN PO 11/25/17 19:15 12/25/17 19:14 Enteral Nutritional Formula (Peptamen 1.5) 1,000 ml UD PEG 11/25/17 15:00 12/25/17 14:59 11/27/17 17:27 1,000 ML Insulin Aspart (novoLOG ASPART) SLIDING SCALE If C... Q6 SC 11/26/17 12:00 12/26/17 11:59 11/28/17 06:06 6 UNITS Warfarin Sodium (Coumadin Tab) 5 mg DAILY@1600 PEG 11/26/17 16:00 12/25/17 15:59 Future Hold 11/26/17 16:56 5 MG Miconazole Nitrate (Desenex Powder) 1 appln PRN PRN EXT 11/27/17 20:45 12/27/17 20:44 Objective Vital Signs Date Time Temp Pulse Resp B/P (MAP) Pulse Ox O2 Delivery O2 Flow Rate FiO2 11/28/17 07:59 87 16 92 Nasal Cannula 2.0 11/28/17 07:43 37.1 85 20 125/80 (95) 94 2.0 11/28/17 05:27 37.0 92 19 129/67 (87) 97 Room Air 11/28/17 04:00 93 Room Air 95 11/28/17 01:20 38.0 76 18 128/70 (89) 92 Room Air 11/28/17 00:00 93 Room Air 95 11/27/17 20:00 93 Room Air 95 11/27/17 19:23 37.7 90 20 135/75 (95) 93 Room Air 11/27/17 19:14 82 16 90 Room Air 11/27/17 16:00 Nasal Cannula 4.0 95 11/27/17 15:44 36.6 77 20 138/74 (95) 95 Room Air 11/27/17 15:21 88 16 89 Room Air 11/27/17 12:11 37.2 80 18 132/74 (93) 90 Nasal Cannula 4.0 11/27/17 12:00 Nasal Cannula 4.0 90 Physical Exam General Appearance: WD/WN, no apparent distress, + pertinent finding (nonverbal ) Respiratory/Chest: + decreased breath sounds, + wheezing Cardiovascular: regular rate, rhythm, no edema Abdomen: soft Laboratory Results Last 24 Hours Test 11/27/17 11:51 11/27/17 18:04 11/27/17 23:57 11/28/17 06:02 Bedside Glucose 217 mg/dl 188 mg/dl 224 mg/dl 221 mg/dl Test 11/28/17 09:05 White Blood Count 9.55 K/uL Red Blood Count 3.37 M/uL Hemoglobin 10.8 g/dL Hematocrit 32.9 % Mean Corpuscular Volume 97.6 fL Mean Corpuscular Hemoglobin 32.0 pg Mean Corpuscular Hemoglobin Concent 32.8 g/dl RDW Standard Deviation 49.5 fL RDW Coefficient of Variation 14.0 % Platelet Count 301 K/uL Mean Platelet Volume 9.8 fL Prothrombin Time 28.3 SECONDS Prothromb Time International Ratio 2.7 Assessment and Plan Mr. Bergman is a 62 year old male with a past medical history of HTN, DMII, CKD, seizures, COPD, CVA with R hemiplegia and aphasia presented from [facility] with hypoxia and tachycardia and admitted for pneumonia. Initial labs revealed leukocytosis and an elevated lactic acid. He is noncommunicative and cannot provide any further info. Sepsis secondary to pneumonia with acute hypoxic respiratory failure - Likely sec to aspiration - Maintain sats>92%. Wean O2 accordingly - currently on 2L via nasal cannula, and is usually on 3L of oxygen at home. - Continue IV Zosyn - MRSA negative - Aspiration precautions - maintain HOB elevations above 30 degrees, follow residuals - GI following; appreciate recs - up to 60 mls/hr of Peptamen and tolerating this well with 5ml residuals - could consider adding lactulose to feeds - pt had BM yesterday, will hold off on lactulose for now - Resp Therapy to help with expectorating the phlegm New Onset Fever - temp 38 overnight while on zosyn - check blood cultures, CXR and UA to determine source of fever - CXR unchanged from prior - UA does not show evidence of infection but does have RBCs - likely traumatic secondary to jeronimo catheter - continue to monitor and await blood cx results COPD: unknown severity - Continue DuoNeb and Pulmicort Recent extensive DVTs bilaterally - INR decreased from 4 to 2.7 today, will decrease dose from 5mg daily to 3mg daily and trend INR - CT found age-indeterminate PE. - Recent echo without evidence of significant heart strain - has evidence of mildly dilated R atrium and ventricle; presence of PFO H/O CVA with Seizure Disorder - R hemiplegia, aphasia, dysphagia - MCA thrombosis - Continue aspirin, atorvastatin daily - Continue Tegretol 200 mg QID and 100 mg HS; Keppra 1000 mg BID T2DM - Continue home Lantus regimen. Hold metformin. - BG checks ac/hs CKD Stage II: -STABLE VTE ppx - SCDs - Warfarin as above FULL CODE As per Dr. Stein: "Mr. Kim, [facility] of intellectual disability is a resident of [facility] in [place] since 2007. In September, he suffered a stroke that left him expressive aphasia and dysphagia. He had since been in [facility] for rehab. He was treated at [facility] for aspiration PNA and discharged earlier this week to return 11/25 with respiratory distress, hypoxia. Spoke with his heel caser; Trisha Acevedo [phone]--she will be visiting the patient while he is in the hospital. She says that he has had limited contact with family over the years. Trisha is his designated POA. She states that as a requirement of his snf his resuscitation status is full code. She does relate that in circumstances this can changed if the patient is in a coma requiring mechanical ventilation. Will follow up on this. Also spoke with the primary from [facility] as well as his sister Trudy Pittman." Resident Tracking Resident Involvement: Resident Care Provided Care Provided: Adult Hospital Medicine Reviewed: Pt Seen/Exam by Me History had fever. no other new concerns Constitutional: denies: fever General Appearance: no apparent distress Respiratory: no respiratory distress, other (upper airway conducted sounds) Cardiovascular: regular rate, rhythm Gastrointestinal: soft Neurologic/Psychiatric: alert Skin Characteristics: warm/dry Assessment/Plan Resident Physician Supervision Note: I independently interviewed and examined the patient and verified the hyman history and physical, reviewed labs and image studies, discussed the case with the resident Dr. Huffman and agree with the findings and care plan.
[2017-11-28 10:02] LABS: CALCIUM 9.1 mg/dl (8.5-10.1); CREATININE 0.64 mg/dl (0.60-1.40); POTASSIUM 3.8 mmol/L (3.5-5.1)
--- NOTE | 2017-11-28 10:14 | DIAGNOSTIC IMAGING REPORT ---
CHEST ONE VIEW PORTABLE CLINICAL HISTORY: fever on zosyn for asp pneumonia dyspnea COMPARISON STUDY: 11/24/2017 FINDINGS: Stable to slightly progressive parenchymal infiltrate left lower lung. Lungs otherwise are clear. The diaphragms remain smooth. IMPRESSION: Infiltrate left base stable to slightly progressive compared to the prior exam. The above report was generated using voice recognition software. It may contain grammatical, syntax or spelling errors. Electronically signed by: Winston Lozano M.D. 11/28/2017 10:13 AM Dictated Date/Time: 11/28/2017 10:12 AM
[2017-11-28] MEDS: PEPTAMEN 1.5 CAL 1000ML BAG PEG SCH (11:56)
[2017-11-28] MEDS: WARFARIN SOD 3 MG TAB PEG SCH (16:27)
[2017-11-28] MEDS: CARBAMAZEPINE 100 MG CHEW TAB PEG SCH (20:39)
[2017-11-28] MEDS: ATORVASTATIN 20 MG TAB PEG SCH (20:39)
[2017-11-28] MEDS: INSULIN GLARGINE SOLOSTAR 100 UNITS/ML 3 ML PEN SQ SCH (20:41)
[2017-11-29] VITALS (15 sets, daily range): BP systolic 116–125; BP diastolic 60–78; PULSE 75–93; TEMP 36.7–37.3; O2SAT 90–97
[2017-11-29] MEDS: NYSTATIN SUSP 500,000 U/5 ML UDC PO SCH ×4 (00:22→18:30)
[2017-11-29] MEDS: INSULIN ASPART 100 UNITS/ML 3 ML PEN SC SCH ×4 (00:54→18:37)
[2017-11-29] MEDS: PIPERACILL/TAZOBAC IV 3.375 GM in DEXTROSE 5% 100ML 100 ML IV SCH ×3 (04:47→20:56)
[2017-11-29 05:52] LABS: HEMATOCRIT 33.7 % (42-52); HEMOGLOBIN 11.1 g/dL (14.0-18.0); MEAN CELL VOLUME 96.8 fL (80-100); MEAN CORPUSCULAR HEMOGLOBIN 31.9 pg (25-34); MEAN CORPUSCULAR HGB CONC 32.9 g/dl (32-36); MEAN PLATELET VOLUME 9.7 fL (7.4-10.4); PLATELET COUNT 331 K/uL (130-400); RED CELL DISTRIBUTION WIDTH SD 49.4 fL (36.4-46.3); WHITE BLOOD COUNT 9.14 K/uL (4.8-10.8)
[2017-11-29 06:28] LABS: CREATININE 0.65 mg/dl (0.60-1.40)
[2017-11-29] MEDS: BUDESONIDE 0.5 MG/2 ML VIAL (PULMICORT) INH SCH ×4 (07:38→19:30)
[2017-11-29] MEDS: ALBUT/IPRATROP 3MG/0.5MG NEB 3 ML VIAL INH SCH ×4 (07:38→19:30)
[2017-11-29 08:41] LABS: INR 2.2 (0.9-1.1)
[2017-11-29] MEDS: LACTOBACILLUS ACIDOPHILUS (FLORANEX) TAB PEG SCH ×3 (09:04→20:56)
[2017-11-29] MEDS: LEVETIRACETAM ORAL SOLN 100MG/ML PEG SCH ×2 (09:05→20:57)
[2017-11-29] MEDS: CARBAMAZEPINE 200 MG TAB PEG SCH ×2 (09:05→16:05)
[2017-11-29] MEDS: CITALOPRAM 40 MG TAB PEG SCH (09:05)
[2017-11-29] MEDS: ASPIRIN 81 MG CHEW PEG SCH (09:06)
[2017-11-29] MEDS: INSULIN GLARGINE SOLOSTAR 100 UNITS/ML 3 ML PEN SC SCH (09:07)
[2017-11-29] MEDS: WARFARIN SOD 3 MG TAB PEG SCH (16:04)
--- NOTE | 2017-11-29 18:41 | Family Medicine Progress Note ---
Progress Note Date of Service Nov 29, 2017. Subjective Pt evaluation today including: physical exam, chart review, lab review, review of inpatient medication list Pain: Unable to assess PO Intake: PEG tube, continuous, in situ Voiding: jeronimo catheter in place Additional Comments: Unable to assess subjective data secondary to patient's baseline nonverbal status Medications Current Inpatient Medications Medications (Trade) Dose Ordered Sig/Valerie Route Start Time Stop Time Status Last Admin Dose Admin Acetaminophen (Tylenol Tab) 650 mg Q4H PRN PO 11/25/17 00:45 12/25/17 00:44 11/26/17 11:02 650 MG Al Hydrox/Mg Hydrox/Simethicone (Maalox Max Susp) 15 ml Q4H PRN PO 11/25/17 00:45 12/25/17 00:44 Ondansetron HCl (Zofran Inj) 4 mg Q6H PRN IV 11/25/17 00:45 12/25/17 00:44 Nitroglycerin (Nitrostat Tab) 0.4 mg UD PRN SL 11/25/17 00:45 12/25/17 00:44 Polyethylene (Miralax Powder Packet) 17 gm DAILY PRN PO 11/25/17 00:45 12/25/17 00:44 Piperacillin Sod/ Tazobactam Sod 3.375 gm/Dextrose 115 ml @ 28 mls/hr Q8H IV 11/25/17 04:00 12/02/17 03:59 11/29/17 20:56 28 MLS/HR Miscellaneous Information (Consult) 1 ea UD PRN N/A 11/25/17 00:45 12/25/17 00:44 Atorvastatin Calcium (Lipitor Tab) 20 mg HS PEG 11/25/17 21:00 12/25/17 20:59 11/29/17 20:57 20 MG Bisacodyl (Dulcolax Tab) 10 mg DAILY PRN PEG 11/25/17 00:45 12/25/17 00:44 Citalopram Hydrobromide (celeXA TAB) 40 mg QAM PEG 11/25/17 09:00 12/25/17 08:59 11/29/17 09:05 40 MG Insulin Glargine (Lantus Solostar Pen) 8 units QAM SC 11/25/17 09:00 12/25/17 08:59 2/12/18 09:07 8 UNITS Insulin Glargine (Lantus Solostar Pen) 12 units QPM SQ 11/25/17 21:00 12/25/17 20:59 11/29/17 20:58 12 UNITS Albuterol/ Ipratropium (Duoneb) 3 ml QIDR INH 11/25/17 08:00 12/25/17 07:59 11/29/17 16:16 3 ML Lactobacillus Acidophilus (Floranex Tab) 1 tab TID PEG 11/25/17 09:00 12/25/17 08:59 11/29/17 20:56 1 TAB Levetiracetam (Keppra Soln) 1,000 mg BID PEG 11/25/17 09:00 12/25/17 08:59 11/29/17 20:57 1,000 MG Magnesium Hydroxide (Milk Of Magnesia Susp) 30 ml DAILY PRN PEG 11/25/17 00:45 12/25/17 00:44 Nystatin (Mycostatin Susp) 5 ml Q6H PO 11/25/17 06:00 12/05/17 05:59 11/29/17 18:30 5 ML Budesonide (Pulmicort Respules 0.5MG/ 2ML Neb Soln) 1 mg QIDR INH 11/25/17 08:00 12/25/17 07:59 11/29/17 16:16 1 MG Carbamazepine (Tegretol Chew Tab) 100 mg HS PEG 11/25/17 21:00 12/25/17 20:59 11/29/17 20:57 100 MG Carbamazepine (Tegretol Tab) 400 mg BID17 PEG 11/25/17 09:00 12/25/17 08:59 11/29/17 16:05 400 MG Glucagon (Glucagon Inj) 1 mg UD PRN SQ 11/25/17 19:15 12/25/17 19:14 Glucose (Glucose 40% Gel) 15-30 GRAMS 15 GRAMS... UD PRN PO 11/25/17 19:15 12/25/17 19:14 Glucose (Glucose Chew Tab) 4-8 Tablets 4 Tabl... UD PRN PO 11/25/17 19:15 12/25/17 19:14 Enteral Nutritional Formula (Peptamen 1.5) 1,000 ml UD PEG 11/25/17 15:00 12/25/17 14:59 11/28/17 11:56 1,000 ML Insulin Aspart (novoLOG ASPART) SLIDING SCALE If C... Q6 SC 11/26/17 12:00 12/26/17 11:59 11/29/17 18:37 4 UNITS Miconazole Nitrate (Desenex Powder) 1 appln PRN PRN EXT 11/27/17 20:45 12/27/17 20:44 Warfarin Sodium (Coumadin Tab) 3 mg DAILY@16 PEG 11/28/17 16:00 12/28/17 15:59 11/29/17 16:04 3 MG Aspirin (Aspirin Chew) 81 mg DAILY PEG 11/29/17 09:00 12/29/17 08:59 11/29/17 09:06 81 MG Objective Vital Signs Date Time Temp Pulse Resp B/P (MAP) Pulse Ox O2 Delivery O2 Flow Rate FiO2 11/29/17 20:10 37.0 75 17 116/73 (87) 94 Room Air 11/29/17 20:00 96 Room Air 11/29/17 16:17 89 16 97 Mask 2.0 11/29/17 16:00 96 Room Air 11/29/17 15:25 37.2 89 16 120/70 (87) 95 Oxymask 2.0 11/29/17 12:15 93 Room Air 11/29/17 11:22 92 16 91 Room Air 11/29/17 11:15 36.8 85 16 116/75 (89) 93 Room Air 11/29/17 08:30 91 Room Air 11/29/17 07:38 88 16 91 Room Air 11/29/17 07:20 36.9 93 16 125/78 (94) 91 Room Air 11/29/17 04:00 92 Room Air 11/29/17 04:00 37.3 82 22 124/60 (81) 90 Room Air 11/29/17 00:13 37.3 88 18 117/76 (90) 91 Room Air 11/29/17 00:00 92 Room Air Physical Exam General Appearance: WD/WN, no apparent distress, + pertinent finding (non verbal) Eyes: normal inspection, PERRL, EOMI, sclerae normal Neck: supple, no JVD, trachea midline Respiratory/Chest: chest non-tender, no respiratory distress, no accessory muscle use, + wheezing Cardiovascular: regular rate, rhythm, no edema, no murmur Abdomen: non tender, soft Extremities: no pedal edema Neurologic/Psychiatric: + aphasia, + motor weakness (right sided) Skin: normal color, warm/dry, no rash Laboratory Results Last Resulted 11/29/17 05:40 Last Resulted 11/29/17 05:40 Past 24 Hours Test 11/29/17 08:07 Range/Units Prothromb Time International Ratio 2.2 H 0.9-1.1 Prothrombin Time 23.0 H 9.0-12.0 SECONDS Assessment and Plan Mr. Bergman is a 62 year old male with a past medical history of HTN, DMII, CKD, seizures, COPD, CVA with R hemiplegia and aphasia presented from [facility] with hypoxia and tachycardia and admitted for pneumonia. Initial labs revealed leukocytosis and an elevated lactic acid. He is noncommunicative and cannot provide any further info. Sepsis secondary to pneumonia with acute hypoxic respiratory failure - Likely sec to aspiration - Maintain sats>92%. Wean O2 accordingly - currently on RA 94, and is usually on 3L of oxygen at home. - Continue IV Zosyn - MRSA negative - Aspiration precautions - maintain HOB elevations above 30 degrees, follow residuals - GI following; appreciate recs - up to 60 mls/hr of Peptamen and tolerating this well with 5ml residuals - pt had BM yesterday, will hold off on lactulose for now - Resp Therapy to help with expectorating the phlegm New Onset Fever - temp 38 two nights ago; no temp in >24 hours - check blood cultures, CXR and UA to determine source of fever - CXR unchanged from prior - UA does not show evidence of infection but does have RBCs - likely traumatic secondary to jeronimo catheter - continue to monitor and await blood cx results COPD: unknown severity - Continue DuoNeb and Pulmicort Recent extensive DVTs bilaterally - INR 2.2 today, will dose 3mg daily and trend INR - CT found age-indeterminate PE. - Recent echo without evidence of significant heart strain - has evidence of mildly dilated R atrium and ventricle; presence of PFO H/O CVA with Seizure Disorder - R hemiplegia, aphasia, dysphagia - MCA thrombosis - Continue aspirin, atorvastatin daily - Continue Tegretol 200 mg QID and 100 mg HS; Keppra 1000 mg BID T2DM - Continue home Lantus regimen. Hold metformin. - BG checks ac/hs - Adjusted carb ratio to 1:7 and CF of 15 CKD Stage II: -STABLE VTE ppx - SCDs - Warfarin as above FULL CODE As per Dr. Stein: "Mr. Kim, [facility] of intellectual disability is a resident of [facility] in [place] since 2007. In September, he suffered a stroke that left him expressive aphasia and dysphagia. He had since been in [facility] for rehab. He was treated at [facility] for aspiration PNA and discharged earlier this week to return 11/25 with respiratory distress, hypoxia. Spoke with his briefcase sewer; Trisha Acevedo [phone]--she will be visiting the patient while he is in the hospital. She says that he has had limited contact with family over the years. Trisha is his designated POA. She states that as a requirement of his correction his resuscitation status is full code. She does relate that in circumstances this can changed if the patient is in a coma requiring mechanical ventilation. Will follow up on this. Also spoke with the primary from [facility] as well as his sister Trudy Pittman." Resident Tracking Resident Involvement: Resident Care Provided Care Provided: Adult Hospital Medicine
[2017-11-29] MEDS: CARBAMAZEPINE 100 MG CHEW TAB PEG SCH (20:57)
[2017-11-29] MEDS: ATORVASTATIN 20 MG TAB PEG SCH (20:57)
[2017-11-29] MEDS: INSULIN GLARGINE SOLOSTAR 100 UNITS/ML 3 ML PEN SQ SCH (20:58)
[2017-11-29] MEDS: PEPTAMEN 1.5 CAL 1000ML BAG PEG SCH (23:13)
[2017-11-30] VITALS (14 sets, daily range): BP systolic 107–124; BP diastolic 68–78; PULSE 80–95; TEMP 36.4–37; O2SAT 90–95
[2017-11-30] MEDS: INSULIN ASPART 100 UNITS/ML 3 ML PEN SC SCH ×5 (00:15→23:55)
[2017-11-30] MEDS: NYSTATIN SUSP 500,000 U/5 ML UDC PO SCH ×6 (00:15→23:47)
[2017-11-30] MEDS: PIPERACILL/TAZOBAC IV 3.375 GM in DEXTROSE 5% 100ML 100 ML IV SCH ×2 (04:09→11:26)
[2017-11-30 05:50] LABS: HEMATOCRIT 34.1 % (42-52); HEMOGLOBIN 11.2 g/dL (14.0-18.0); MEAN CELL VOLUME 96.6 fL (80-100); MEAN CORPUSCULAR HEMOGLOBIN 31.7 pg (25-34); MEAN CORPUSCULAR HGB CONC 32.8 g/dl (32-36); MEAN PLATELET VOLUME 9.5 fL (7.4-10.4); PLATELET COUNT 346 K/uL (130-400); RED CELL DISTRIBUTION WIDTH CV 14.2 % (11.5-14.5); WHITE BLOOD COUNT 9.56 K/uL (4.8-10.8)
[2017-11-30 06:00] LABS: INR 2.1 (0.9-1.1)
[2017-11-30] MEDS: ALBUT/IPRATROP 3MG/0.5MG NEB 3 ML VIAL INH SCH ×4 (07:30→19:50)
[2017-11-30] MEDS: BUDESONIDE 0.5 MG/2 ML VIAL (PULMICORT) INH SCH ×3 (07:30→20:00)
[2017-11-30] MEDS: CARBAMAZEPINE 200 MG TAB PEG SCH ×2 (10:15→17:10)
[2017-11-30] MEDS: CITALOPRAM 40 MG TAB PEG SCH (10:16)
[2017-11-30] MEDS: ASPIRIN 81 MG CHEW PEG SCH (10:16)
[2017-11-30] MEDS: LACTOBACILLUS ACIDOPHILUS (FLORANEX) TAB PEG SCH ×3 (10:17→20:27)
[2017-11-30] MEDS: LEVETIRACETAM ORAL SOLN 100MG/ML PEG SCH ×2 (10:20→20:27)
[2017-11-30] MEDS: INSULIN GLARGINE SOLOSTAR 100 UNITS/ML 3 ML PEN SC SCH (10:21)
[2017-11-30] MEDS: WARFARIN SOD 3 MG TAB PEG SCH (15:42)
--- NOTE | 2017-11-30 16:22 | Family Medicine Progress Note ---
Progress Note Date of Service Nov 30, 2017. Subjective Pt evaluation today including: conversation w/ family, physical exam PO Intake: PEG tube in situ Voiding: jeronimo catheter in place Additional Comments: Unable to obtain ROS secondary to patient's nonverbal status Medications Current Inpatient Medications Medications (Trade) Dose Ordered Sig/Valerie Route Start Time Stop Time Status Last Admin Dose Admin Acetaminophen (Tylenol Tab) 650 mg Q4H PRN PO 11/25/17 00:45 12/25/17 00:44 11/26/17 11:02 650 MG Al Hydrox/Mg Hydrox/Simethicone (Maalox Max Susp) 15 ml Q4H PRN PO 11/25/17 00:45 12/25/17 00:44 Ondansetron HCl (Zofran Inj) 4 mg Q6H PRN IV 11/25/17 00:45 12/25/17 00:44 Nitroglycerin (Nitrostat Tab) 0.4 mg UD PRN SL 11/25/17 00:45 12/25/17 00:44 Polyethylene (Miralax Powder Packet) 17 gm DAILY PRN PO 11/25/17 00:45 12/25/17 00:44 Atorvastatin Calcium (Lipitor Tab) 20 mg HS PEG 11/25/17 21:00 12/25/17 20:59 11/29/17 20:57 20 MG Bisacodyl (Dulcolax Tab) 10 mg DAILY PRN PEG 11/25/17 00:45 12/25/17 00:44 Citalopram Hydrobromide (celeXA TAB) 40 mg QAM PEG 11/25/17 09:00 12/25/17 08:59 11/30/17 10:16 40 MG Insulin Glargine (Lantus Solostar Pen) 8 units QAM SC 11/25/17 09:00 12/25/17 08:59 11/30/17 10:21 8 UNITS Insulin Glargine (Lantus Solostar Pen) 12 units QPM SQ 11/25/17 21:00 12/25/17 20:59 11/29/17 20:58 12 UNITS Albuterol/ Ipratropium (Duoneb) 3 ml QIDR INH 11/25/17 08:00 12/25/17 07:59 11/30/17 11:54 3 ML Lactobacillus Acidophilus (Floranex Tab) 1 tab TID PEG 11/25/17 09:00 12/25/17 08:59 11/30/17 15:40 1 TAB Levetiracetam (Keppra Soln) 1,000 mg BID PEG 11/25/17 09:00 12/25/17 08:59 11/30/17 10:20 1,000 MG Magnesium Hydroxide (Milk Of Magnesia Susp) 30 ml DAILY PRN PEG 11/25/17 00:45 12/25/17 00:44 Nystatin (Mycostatin Susp) 5 ml Q6H PO 11/25/17 06:00 12/05/17 05:59 11/30/17 06:28 5 ML Budesonide (Pulmicort Respules 0.5MG/ 2ML Neb Soln) 1 mg QIDR INH 11/25/17 08:00 12/25/17 07:59 11/30/17 11:54 1 MG Carbamazepine (Tegretol Chew Tab) 100 mg HS PEG 11/25/17 21:00 12/25/17 20:59 11/29/17 20:57 100 MG Carbamazepine (Tegretol Tab) 400 mg BID17 PEG 11/25/17 09:00 12/25/17 08:59 11/30/17 10:15 400 MG Glucagon (Glucagon Inj) 1 mg UD PRN SQ 11/25/17 19:15 12/25/17 19:14 Glucose (Glucose 40% Gel) 15-30 GRAMS 15 GRAMS... UD PRN PO 11/25/17 19:15 12/25/17 19:14 Glucose (Glucose Chew Tab) 4-8 Tablets 4 Tabl... UD PRN PO 11/25/17 19:15 12/25/17 19:14 Enteral Nutritional Formula (Peptamen 1.5) 1,000 ml UD PEG 11/25/17 15:00 12/25/17 14:59 11/29/17 23:13 1,000 ML Insulin Aspart (novoLOG ASPART) SLIDING SCALE If C... Q6 SC 11/26/17 12:00 12/26/17 11:59 11/30/17 12:19 3 UNITS Miconazole Nitrate (Desenex Powder) 1 appln PRN PRN EXT 2/10/18 20:45 12/27/17 20:44 Warfarin Sodium (Coumadin Tab) 3 mg DAILY@16 PEG 11/28/17 16:00 12/28/17 15:59 11/30/17 15:42 3 MG Aspirin (Aspirin Chew) 81 mg DAILY PEG 11/29/17 09:00 12/29/17 08:59 11/30/17 10:16 81 MG Amoxicillin/ Clavulanate Potassium (Augmentin Tab) 875 mg BIDM PO 11/30/17 17:00 12/07/17 16:59 Objective Vital Signs Date Time Temp Pulse Resp B/P (MAP) Pulse Ox O2 Delivery O2 Flow Rate FiO2 11/30/17 15:43 36.9 84 18 117/74 (88) 91 11/30/17 12:15 93 Room Air 11/30/17 11:47 37.0 86 18 117/74 (88) 95 Room Air 11/30/17 08:34 92 Room Air 11/30/17 08:15 92 Room Air 11/30/17 08:07 36.8 80 18 107/68 (81) 92 Room Air 11/30/17 07:30 92 16 91 Room Air 11/30/17 04:00 92 Room Air 11/30/17 04:00 36.4 80 20 117/73 (88) 90 Room Air 11/30/17 00:00 92 Room Air 11/29/17 23:52 36.7 83 20 125/76 (92) 91 Room Air 11/29/17 20:10 37.0 75 17 116/73 (87) 94 Room Air 11/29/17 20:00 96 Room Air 11/29/17 16:17 89 16 97 Mask 2.0 11/29/17 16:00 96 Room Air Physical Exam General Appearance: WD/WN, no apparent distress Eyes: normal inspection, PERRL, sclerae normal Neck: no adenopathy, no JVD, no carotid bruits, trachea midline Respiratory/Chest: chest non-tender, no accessory muscle use, + wheezing Cardiovascular: regular rate, rhythm, no edema, no gallop, no JVD, no murmur Abdomen: normal bowel sounds, non tender, soft Extremities: normal inspection, no pedal edema, no calf tenderness, + pertinent finding (Right sided hemiplegia) Neurologic/Psychiatric: + aphasia, + disoriented, + pertinent finding (Right sided hemiplegia) Skin: normal color, warm/dry, no rash Laboratory Results Last Resulted 11/30/17 05:32 Last Resulted 11/29/17 05:40 Past 24 Hours Test 11/30/17 05:32 Range/Units Prothromb Time International Ratio 2.1 H 0.9-1.1 Prothrombin Time 22.2 H 9.0-12.0 SECONDS Assessment and Plan Mr. Bergman is a 62 year old male with a past medical history of HTN, DMII, CKD, seizures, COPD, CVA with R hemiplegia and aphasia presented from [facility] with hypoxia and tachycardia and admitted for pneumonia. Initial labs revealed leukocytosis and an elevated lactic acid. He is noncommunicative and cannot provide any further info. Sepsis secondary to pneumonia with acute hypoxic respiratory failure - Likely sec to aspiration - Maintain sats>92%. Has been successfully weaned off of oxygen - currently on RA 94, and is usually on 3L of oxygen at home. - Transitioned IV Zosyn to augmentin 875 BID via PEG tube; 10 days total; today is day 6 of abx - MRSA negative - Aspiration precautions - maintain HOB elevations above 30 degrees, follow residuals - GI following; appreciate recs - up to 60 mls/hr of Peptamen and tolerating this well with 5ml residuals - pt had BM, will hold off on lactulose for now - Resp Therapy to help with expectorating the phlegm New Onset Fever, resolved - temp 38 three nights ago; no temp in >24 hours - blood cultures NGTD, CXR mildly worsened but overall unchanged compared to admission and UA negative - UA does not show evidence of infection but does have RBCs - likely traumatic secondary to jeronimo catheter - continue to monitor and await blood cx results COPD: unknown severity - Continue DuoNeb and Pulmicort, continue on discharge Recent extensive DVTs bilaterally - INR 2.1 today, will dose 4mg today as since changing to 3 mg daily inr daily and trend INR - CT found age-indeterminate PE. - Recent echo without evidence of significant heart strain - has evidence of mildly dilated R atrium and ventricle; presence of PFO H/O CVA with Seizure Disorder - R hemiplegia, aphasia, dysphagia - MCA thrombosis - Continue aspirin, atorvastatin daily - Continue Tegretol 200 mg QID and 100 mg HS; Keppra 1000 mg BID T2DM - Continue home Lantus regimen. Hold metformin. - BG checks ac/hs - Adjusted carb ratio to 1:7 and CF of 10 CKD Stage II: -STABLE Dispo: tele, likely DC tomorrow VTE ppx - SCDs - Warfarin as above FULL CODE As per Dr. Stein: "Mr. Kim, [facility] of intellectual disability is a resident of [facility] in [place] since 2007. In September, he suffered a stroke that left him expressive aphasia and dysphagia. He had since been in [facility] for rehab. He was treated at [facility] for aspiration PNA and discharged earlier this week to return 11/25 with respiratory distress, hypoxia. Spoke with his director of casework department; Trisha Curtis [phone]--she will be visiting the patient while he is in the hospital. She says that he has had limited contact with family over the years. Trisha is his designated POA. She states that as a requirement of his half-way his resuscitation status is full code. She does relate that in circumstances this can changed if the patient is in a coma requiring mechanical ventilation. Will follow up on this. Also spoke with the primary from [facility] as well as his sister Trudy Pittman." Discussed case further with . Trisha Acevedo today. We discussed patient's prognosis and as above, she states that the code status would not be changed unless his condition would be terminal. I discussed his manager intermediate prognosis and the likelihood of him requiring multiple readmissions in the future as well as the chances of him regaining much of his functioning that he had prior to the CVA. She is going to discuss this with her fuel system maintenance supervisor and family. We also discussed possibility of involving palliative care in the future. Resident Tracking Resident Involvement: Resident Care Provided Care Provided: Adult Hospital Medicine
[2017-11-30] MEDS ORDERED: WARFARIN SOD 1 MG TAB PEG ONE (16:30)
[2017-11-30] MEDS ORDERED: AMOXICILLIN/CLAVULANATE TAB 875 MG TAB PO SCH (17:00)
[2017-11-30] MEDS: AMOXICILLIN/CLAVULANATE SUSP 400 MG/5 ML GT SCH (17:08)
[2017-11-30] MEDS: PEPTAMEN 1.5 CAL 1000ML BAG PEG SCH (17:25)
[2017-11-30] MEDS: ATORVASTATIN 20 MG TAB PEG SCH (20:27)
[2017-11-30] MEDS: CARBAMAZEPINE 100 MG CHEW TAB PEG SCH (20:27)
[2017-11-30] MEDS: INSULIN GLARGINE SOLOSTAR 100 UNITS/ML 3 ML PEN SQ SCH (20:28)
--- NOTE | 2017-11-30 22:56 | Discharge Instructions ---
Discharge Instructions Date of Service Nov 30, 2017. Admission Reason for Admission: Pneumonia Discharge Discharge Diagnosis / Problem: Pneumonia Discharge Goals Goal(s): Decrease discomfort, Improve disease control, Therapeutic intervention , Prevent Disease Progression Activity Recommendations Activity Limitations: per Instructions/Follow-up section . Instructions / Follow-Up Instructions / Follow-Up Mr. Bergman is a 62 year old male with a past medical history of HTN, DMII, CKD, seizures, COPD, CVA with R hemiplegia and aphasia who presented with hypoxia and tachycardia and admitted for pneumonia treatment. Initial labs revealed leukocytosis and an elevated lactic acid. He is noncommunicative and cannot provide any further info. Sepsis secondary to pneumonia with acute hypoxic respiratory failure - Likely secondary to aspiration - Maintain sats>92%. Has been successfully weaned off of oxygen - currently on RA 94, and is reportedly on 3L of oxygen at home. - Transitioned IV Zosyn to augmentin 875 BID via PEG tube; 10 days total; today is day 8 of abx (3.5 more days required) - Aspiration precautions - maintain HOB elevations above 30 degrees, monitor tube feed residuals New Onset Fever, resolved - temp 38 4 nights ago; no temp elevation in >48 hours - blood cultures NGTD, CXR mildly worsened but overall unchanged compared to admission and UA negative - UA does not show evidence of infection but does have RBCs - likely traumatic secondary to jeronimo catheter COPD: unknown severity - Please Continue DuoNeb and Pulmicort q2h prn and scheduled q6h Recent extensive DVTs bilaterally - INR 2.3 today, will dose 4mg today. Trend INR - CT found age-indeterminate PE. - Recent echo without evidence of significant heart strain - has evidence of mildly dilated R atrium and ventricle; presence of PFO H/O CVA with Seizure Disorder - R hemiplegia, aphasia, dysphagia - MCA thrombosis - Continue aspirin, atorvastatin daily - Continue Tegretol 200 mg QID and 100 mg HS; Keppra 1000 mg BID T2DM - Continue home Diabetes regimen CKD Stage II: -STABLE -Patient had jeronimo catheter while hospitalized. Removed prior to discharge. Recommend bladder scan and re-insertion of jeronimo if residual volume >400cc. -Recommend MD raman in 2-3 days FULL CODE As per Dr. Stein: "Mr. Kim, [facility] of intellectual disability is a resident of [facility] in [place] since 2007. In September, he suffered a stroke that left him expressive aphasia and dysphagia. He had since been in [facility] for rehab. He was treated at [facility] for aspiration PNA and discharged earlier this week to return 11/25 with respiratory distress, hypoxia. Spoke with his ed case manager; Trisha Acevedo [phone]--she will be visiting the patient while he is in the hospital. She says that he has had limited contact with family over the years. Trisha is his designated POA. She states that as a requirement of his [facility] his resuscitation status is full code. She does relate that in circumstances this can changed if the patient is in a coma requiring mechanical ventilation. Will follow up on this. Also spoke with the primary from [facility] as well as his sister Trudy Pittman." Discussed case further with . Trisha Acevedo yesterday. We discussed patient 's prognosis and as above, she states that the code status would not be changed unless his condition would be terminal. I discussed his exterminator helper termite prognosis and the likelihood of him requiring multiple readmissions in the future as well as the chances of him regaining much of his functioning that he had prior to the CVA. She is going to discuss this with her supervisor fitting and patient's family. We also discussed possibility of involving palliative care in the future and eventual need to discuss goals of care. Patient is high risk for readmission, considering his baseline status, complex and terminal medical conditions including stroke with R-sided hemiplegia/ nonverbal status preventing comprehension of medical conditions and compliance, and previous admissions for aspiration pneumonia 12/01/17 I was called to a code purple on the patient. At the bedside was notified that the patient has been becoming progressively more tacchypneic over the course of the afternoon. No mention of hypoxia of fevers. On examination, he was tacchypneic but no evidence of acute wheezing. No crackles were appreciated. Stat labs were ordered including: - CBC, BMP, Pro-anita, Troponin - EKG was done and reviewed at the bed side and did not show any ischemic or concern changes - CXR was done and showed improvement in left-sided infiltrate. Nebulizer treatment seemed to work. Repeat blood cultures were not done nor antibiotics broadened as there were no other objective signs of worsening infection. The episode did concern in regards to goals of care in the event that he worsens to the point of cardiopulmonary arrest. I did call the patient's ' State Appointed Decision-Maker', Trisha Acevdeo. I informed her of the acute situation and while at this time may not lead to cardiopulmonary arrest, what the goals of care would be if heart and lungs were to stop working. I did emphasize my concern that in his given state of permanent disability from recent CVA, dysphagia, risk of aspiration that if a breathing tube were inserted the prospect of it ever being removed would is extremely small. I urged consideration as to whether it would be placed to begin with if that was ever needed. Furthermore, I discussed performing chest compressions, the risks , and the very minimal prospect of resuscitating him to a meaningful quality of life. I conveyed my impression that aggressive resuscitative measures as a whole would overall be more harmful with only small likelihood of meaningful benefit. Mrs. Acevedo discussed the case with her supervisor fitting Talya Castrejon and she requested that the decision be made by patient's sister Trudy Pittman. I phone Trudy Pittman and relayed all of my above concerns to her. She states "I've said I wouldn't want him to have a breathing tube but they said it wasn't my decision , now they say I have to decided. She did explicitly state that "I wouldn't want him to have a breathing tube and I don't think he would either". Regarding chest compressions after expressing my concerns, she confirmed that she would not want him to have chest compressions if there was minimal chance of meaningful recovery. I asked if she thought it best at this point that his code status be changed to level 5 DNR and she was in agreement. Patients decision-maker Trisha was phone back immediately to discuss my discussion with Patient's sister Trudy. Trisha aknowledged her agreement to change the patient's code status at this point to a DNR. I have re-iterated both to the sister and decision-maker that treatments including nebulizers, fluids, antibiotics can all still be administered, but that life threatening illness would be treated supportively. I have asked both Trisha and Trudy to speak to each other to make sure that all 3 of us are in agreement on this plan moving forward. The patient code status is now a Level 5 DNR and now reflected in the chart. Current Hospital Diet Patient's current hospital diet: Discharge Diet Recommended Diet: N/A (PEG feeds) Pending Studies Studies pending at discharge: no Laboratory Results Hemoglobin A1c Test 11/17/17 08:12 Range/Units Estimated Average Glucose 157 mg/dl Hemoglobin A1c 7.1 H 4.5-5.6 % Medical Emergencies . Who to Call and When: Medical Emergencies: If at any time you feel your situation is an emergency, please call 911 immediately. . Non-Emergent Contact Non-Emergency issues call your: Primary Care Provider . . "Provider Documentation" section prepared by Lashaun Iyer. . VTE Core Measure Inpt VTE Proph given/why not?: Warfarin (Coumadin), SCD's
[2017-12-01] VITALS (10 sets, daily range): BP systolic 112–151; BP diastolic 72–92; PULSE 87–102; TEMP 36.1–37.6; O2SAT 90–97
[2017-12-01 05:51] LABS: HEMATOCRIT 35.4 % (42-52); HEMOGLOBIN 11.5 g/dL (14.0-18.0); MEAN CELL VOLUME 97.5 fL (80-100); MEAN CORPUSCULAR HEMOGLOBIN 31.7 pg (25-34); MEAN CORPUSCULAR HGB CONC 32.5 g/dl (32-36); MEAN PLATELET VOLUME 9.6 fL (7.4-10.4); PLATELET COUNT 370 K/uL (130-400); RED CELL DISTRIBUTION WIDTH CV 14.1 % (11.5-14.5); RED CELL DISTRIBUTION WIDTH SD 50.3 fL (36.4-46.3); WHITE BLOOD COUNT 8.15 K/uL (4.8-10.8)
[2017-12-01 05:56] LABS: INR 2.3 (0.9-1.1)
[2017-12-01] MEDS: NYSTATIN SUSP 500,000 U/5 ML UDC PO SCH ×3 (06:00→16:07)
[2017-12-01] MEDS: INSULIN ASPART 100 UNITS/ML 3 ML PEN SC SCH ×3 (06:05→18:00)
[2017-12-01 06:12] LABS: CALCIUM 9.1 mg/dl (8.5-10.1); CREATININE 0.72 mg/dl (0.60-1.40); POTASSIUM 4.2 mmol/L (3.5-5.1)
[2017-12-01] MEDS: ALBUT/IPRATROP 3MG/0.5MG NEB 3 ML VIAL INH SCH ×4 (07:09→19:14)
[2017-12-01] MEDS: BUDESONIDE 0.5 MG/2 ML VIAL (PULMICORT) INH SCH ×4 (07:09→19:14)
[2017-12-01] MEDS: INSULIN GLARGINE SOLOSTAR 100 UNITS/ML 3 ML PEN SC SCH (08:42)
[2017-12-01] MEDS: AMOXICILLIN/CLAVULANATE SUSP 400 MG/5 ML GT SCH ×2 (08:43→16:05)
[2017-12-01] MEDS: CITALOPRAM 40 MG TAB PEG SCH (08:43)
[2017-12-01] MEDS: CARBAMAZEPINE 200 MG TAB PEG SCH ×2 (08:43→16:07)
[2017-12-01] MEDS: LACTOBACILLUS ACIDOPHILUS (FLORANEX) TAB PEG SCH ×3 (08:43→21:06)
[2017-12-01] MEDS: ASPIRIN 81 MG CHEW PEG SCH (08:43)
[2017-12-01] MEDS: LEVETIRACETAM ORAL SOLN 100MG/ML PEG SCH ×2 (08:44→21:06)
[2017-12-01] MEDS: PEPTAMEN 1.5 CAL 1000ML BAG PEG SCH (11:02)
[2017-12-01] MEDS ORDERED: AMOX400S2 GT (12:22)
[2017-12-01] MEDS ORDERED: AMX875 PEG (12:31)
[2017-12-01] MEDS: WARFARIN SOD 3 MG TAB PEG SCH (16:06)
[2017-12-01 19:02] LABS: HEMATOCRIT 38.2 % (42-52); HEMOGLOBIN 12.4 g/dL (14.0-18.0); MEAN CELL VOLUME 97.2 fL (80-100); MEAN CORPUSCULAR HEMOGLOBIN 31.6 pg (25-34); MEAN PLATELET VOLUME 9.4 fL (7.4-10.4); PLATELET COUNT 413 K/uL (130-400); RED CELL DISTRIBUTION WIDTH CV 14.2 % (11.5-14.5); RED CELL DISTRIBUTION WIDTH SD 50.3 fL (36.4-46.3); WHITE BLOOD COUNT 9.37 K/uL (4.8-10.8)
[2017-12-01 19:04] LABS: MEAN CORPUSCULAR HGB CONC 32.5 g/dl (32-36)
--- NOTE | 2017-12-01 19:16 | DIAGNOSTIC IMAGING REPORT ---
CHEST ONE VIEW PORTABLE CLINICAL HISTORY: SOB dyspnea COMPARISON STUDY: 11/28/2017 FINDINGS: Infiltrate left base improved from the prior study. Moderate residual. Lungs otherwise appear clear. Diaphragms are smooth. IMPRESSION: Improving left basilar infiltrate The above report was generated using voice recognition software. It may contain grammatical, syntax or spelling errors. Electronically signed by: Winston Lozano M.D. 12/01/2017 7:14 PM Dictated Date/Time: 12/01/2017 7:14 PM
[2017-12-01 19:33] LABS: BLOOD UREA NITROGEN 20 mg/dl (7-18); CALCIUM 9.6 mg/dl (8.5-10.1); CARBON DIOXIDE 27 mmol/L (21-32); CREATININE 0.73 mg/dl (0.60-1.40); GLUCOSE 120 mg/dl (70-99); POTASSIUM 4.5 mmol/L (3.5-5.1); SODIUM 138 mmol/L (136-145)
--- NOTE | 2017-12-01 20:40 | Progress Note ---
Progress Note Date of Service Dec 01, 2017. Progress Note I was called to a code purple on the patient. At the bedside was notified that the patient has been becoming progressively more tacchypneic over the course of the afternoon. No mention of hypoxia of fevers. On examination, he was tacchypneic but no evidence of acute wheezing. No crackles were appreciated. Stat labs were ordered including: - CBC, BMP, Pro-anita, Troponin - EKG was done and reviewed at the bed side and did not show any ischemic or concern changes - CXR was done and showed improvement in left-sided infiltrate. Nebulizer treatment seemed to work. Repeat blood cultures were not done nor antibiotics broadened as there were no other objective signs of worsening infection. The episode did concern in regards to goals of care in the event that he worsens to the point of cardiopulmonary arrest. I did call the patient's ' State Appointed Decision-Maker', Trisha Landaagnes. I informed her of the acute situation and while at this time may not lead to cardiopulmonary arrest, what the goals of care would be if heart and lungs were to stop working. I did emphasize my concern that in his given state of permanent disability from recent CVA, dysphagia, risk of aspiration that if a breathing tube were inserted the prospect of it ever being removed would is extremely small. I urged consideration as to whether it would be placed to begin with if that was ever needed. Furthermore, I discussed performing chest compressions, the risks , and the very minimal prospect of resuscitating him to a meaningful quality of life. I conveyed my impression that aggressive resuscitative measures as a whole would overall be more harmful with only small likelihood of meaningful benefit. Mrs. Acevedo discussed the case with her a p supervisor Talya Castrejon and she requested that the decision be made by patient's sister Trudy Pittman. I phone Trudy Pittman and relayed all of my above concerns to her. She states "I've said I wouldn't want him to have a breathing tube but they said it wasn't my decision , now they say I have to decided. She did explicitly state that "I wouldn't want him to have a breathing tube and I don't think he would either". Regarding chest compressions after expressing my concerns, she confirmed that she would not want him to have chest compressions if there was minimal chance of meaningful recovery. I asked if she thought it best at this point that his code status be changed to level 5 DNR and she was in agreement. Patients decision-maker Trisha was phone back immediately to discuss my discussion with Patient's sister Trudy. Trisha aknowledged her agreement to change the patient's code status at this point to a DNR. I have re-iterated both to the sister and decision-maker that treatments including nebulizers, fluids, antibiotics can all still be administered, but that life threatening illness would be treated supportively. I have asked both Trisha and Trudy to speak to each other to make sure that all 3 of us are in agreement on this plan moving forward. The patient code status is now a Level 5 DNR and now reflected in the chart.
[2017-12-01] MEDS: INSULIN GLARGINE SOLOSTAR 100 UNITS/ML 3 ML PEN SQ SCH (21:00)
[2017-12-01] MEDS: CARBAMAZEPINE 100 MG CHEW TAB PEG SCH (21:06)
[2017-12-01] MEDS: ATORVASTATIN 20 MG TAB PEG SCH (21:06)
--- NOTE | 2017-12-01 21:29 | Family Medicine Progress Note ---
Progress Note Date of Service Dec 01, 2017. Subjective Pt evaluation today including: physical exam, chart review, lab review PO Intake: PEG feeds Voiding: incontinence Patient non verbal at baseline; unable to assess subjective complaints Additional Comments: Unable to assess ROS due to patient's nonverbal status Medications Current Inpatient Medications Medications (Trade) Dose Ordered Sig/Valerie Route Start Time Stop Time Status Last Admin Dose Admin Acetaminophen (Tylenol Tab) 650 mg Q4H PRN PO 11/25/17 00:45 12/25/17 00:44 11/26/17 11:02 650 MG Al Hydrox/Mg Hydrox/Simethicone (Maalox Max Susp) 15 ml Q4H PRN PO 11/25/17 00:45 12/25/17 00:44 Ondansetron HCl (Zofran Inj) 4 mg Q6H PRN IV 11/25/17 00:45 12/25/17 00:44 Nitroglycerin (Nitrostat Tab) 0.4 mg UD PRN SL 11/25/17 00:45 12/25/17 00:44 Polyethylene (Miralax Powder Packet) 17 gm DAILY PRN PO 11/25/17 00:45 12/25/17 00:44 Atorvastatin Calcium (Lipitor Tab) 20 mg HS PEG 11/25/17 21:00 12/25/17 20:59 11/30/17 20:27 20 MG Bisacodyl (Dulcolax Tab) 10 mg DAILY PRN PEG 11/25/17 00:45 12/25/17 00:44 Citalopram Hydrobromide (celeXA TAB) 40 mg QAM PEG 11/25/17 09:00 12/25/17 08:59 12/01/17 08:43 40 MG Insulin Glargine (Lantus Solostar Pen) 12 units QPM SQ 11/25/17 21:00 12/25/17 20:59 11/30/17 20:28 12 UNITS Lactobacillus Acidophilus (Floranex Tab) 1 tab TID PEG 11/25/17 09:00 12/25/17 08:59 12/01/17 12:46 1 TAB Levetiracetam (Keppra Soln) 1,000 mg BID PEG 11/25/17 09:00 12/25/17 08:59 12/01/17 08:44 1,000 MG Magnesium Hydroxide (Milk Of Magnesia Susp) 30 ml DAILY PRN PEG 11/25/17 00:45 12/25/17 00:44 Nystatin (Mycostatin Susp) 5 ml Q6H PO 11/25/17 06:00 12/05/17 05:59 12/01/17 16:07 5 ML Budesonide (Pulmicort Respules 0.5MG/ 2ML Neb Soln) 1 mg QIDR INH 11/25/17 08:00 12/25/17 07:59 12/01/17 19:14 1 MG Carbamazepine (Tegretol Chew Tab) 100 mg HS PEG 11/25/17 21:00 12/25/17 20:59 11/30/17 20:27 100 MG Carbamazepine (Tegretol Tab) 400 mg BID17 PEG 11/25/17 09:00 12/25/17 08:59 12/01/17 16:07 400 MG Glucagon (Glucagon Inj) 1 mg UD PRN SQ 11/25/17 19:15 12/25/17 19:14 Glucose (Glucose 40% Gel) 15-30 GRAMS 15 GRAMS... UD PRN PO 11/25/17 19:15 12/25/17 19:14 Glucose (Glucose Chew Tab) 4-8 Tablets 4 Tabl... UD PRN PO 11/25/17 19:15 12/25/17 19:14 Enteral Nutritional Formula (Peptamen 1.5) 1,000 ml UD PEG 11/25/17 15:00 12/25/17 14:59 12/01/17 11:02 1,000 ML Insulin Aspart (novoLOG ASPART) SLIDING SCALE If C... Q6 SC 11/26/17 12:00 12/26/17 11:59 12/01/17 12:49 13 UNITS Miconazole Nitrate (Desenex Powder) 1 appln PRN PRN EXT 11/27/17 20:45 12/27/17 20:44 Warfarin Sodium (Coumadin Tab) 3 mg DAILY@16 PEG 11/28/17 16:00 12/28/17 15:59 12/01/17 16:06 3 MG Aspirin (Aspirin Chew) 81 mg DAILY PEG 11/29/17 09:00 12/29/17 08:59 12/01/17 08:43 81 MG Amoxicillin/ Clavulanate Potassium (Augmentin Susp) 10 ml BIDM GT 11/30/17 17:00 12/07/17 16:59 12/01/17 16:05 10 ML Insulin Glargine (Lantus Solostar Pen) 15 units QAM SC 12/01/17 09:00 12/25/17 08:59 12/01/17 08:42 15 UNITS Albuterol/ Ipratropium (Duoneb) 3 ml Q4R INH 12/01/17 20:00 12/31/17 19:59 12/01/17 19:14 3 ML Objective Vital Signs Date Time Temp Pulse Resp B/P (MAP) Pulse Ox O2 Delivery O2 Flow Rate FiO2 12/01/17 20:37 102 16 95 Mask 3.0 12/01/17 20:00 91 Room Air Nasal Cannula 12/01/17 19:56 36.5 99 18 114/75 (88) 95 Nasal Cannula 2.0 12/01/17 16:00 91 Room Air Nasal Cannula 12/01/17 15:37 36.1 93 20 123/80 (94) 91 Room Air 12/01/17 12:10 Room Air 12/01/17 11:54 36.9 95 18 129/83 (98) 96 2.0 12/01/17 08:10 Room Air 12/01/17 07:11 37.6 87 20 130/78 (95) 93 Room Air 12/01/17 05:57 36.7 88 20 119/80 (93) 97 Room Air 12/01/17 04:00 Room Air 12/01/17 00:11 36.9 91 20 112/72 (85) 90 Room Air 12/01/17 00:00 Room Air Physical Exam General Appearance: WD/WN, no apparent distress Eyes: normal inspection, PERRL, EOMI, sclerae normal ENT: pharynx normal Neck: supple, no JVD, no carotid bruits, trachea midline Respiratory/Chest: chest non-tender, no respiratory distress, no accessory muscle use, + wheezing Cardiovascular: regular rate, rhythm, no edema, no gallop, no JVD, no murmur Abdomen: normal bowel sounds, non tender, soft Extremities: normal inspection, no pedal edema, no calf tenderness Neurologic/Psychiatric: alert, + aphasia, + pertinent finding (right sided hemiplegia) Skin: normal color, warm/dry, no rash Laboratory Results Last Resulted 12/01/17 18:50 Last Resulted 12/01/17 18:50 Past 24 Hours Test 12/01/17 05:31 12/01/17 18:50 Range/Units Prothromb Time International Ratio 2.3 H 0.9-1.1 Prothrombin Time 23.4 H 9.0-12.0 SECONDS Troponin I < 0.015 0-0.045 ng/ml Assessment and Plan Mr. Bergman is a 62 year old male with a past medical history of HTN, DMII, CKD, seizures, COPD, CVA with R hemiplegia and aphasia who presented with hypoxia and tachycardia and admitted for pneumonia treatment. Initial labs revealed leukocytosis and an elevated lactic acid. He is noncommunicative and cannot provide any further info. Patient has responded well to therapy and should continue breathing treatments and remaining course of antibiotics. Neda bowles was called on patient 12/01/17 for progressive tachypnea. Patient evaluated without issue, and responded well to nebulizer, however patient's code status has been changed to full. Please see Dr. Reyes's note for complete details. Sepsis secondary to pneumonia with acute hypoxic respiratory failure - Likely secondary to aspiration - Maintain sats>92%. Has been successfully weaned off of oxygen - currently on RA 94, and is reportedly on 3L of oxygen at home. - Transitioned IV Zosyn to augmentin 875 BID via PEG tube; 10 days total; today is day 7 of abx (4 more days required) - Aspiration precautions - maintain HOB elevations above 30 degrees, monitor tube feed residuals New Onset Fever, resolved - temp 38 4 nights ago; no temp elevation in >48 hours - blood cultures NGTD, CXR mildly worsened but overall unchanged compared to admission and UA negative - UA does not show evidence of infection but does have RBCs - likely traumatic secondary to jeronimo catheter COPD: unknown severity - Continue DuoNeb and Pulmicort q2h prn and scheduled q6h Recent extensive DVTs bilaterally - INR 2.3 today, will dose 4mg today. Trend INR - CT found age-indeterminate PE. - Recent echo without evidence of significant heart strain - has evidence of mildly dilated R atrium and ventricle; presence of PFO H/O CVA with Seizure Disorder - R hemiplegia, aphasia, dysphagia - MCA thrombosis - Continue aspirin, atorvastatin daily - Continue Tegretol 200 mg QID and 100 mg HS; Keppra 1000 mg BID T2DM - Continue home Diabetes regimen CKD Stage II: -STABLE -Patient had jeronimo catheter while hospitalized. Removed prior to discharge. Recommend bladder scan and re-insertion of jeronimo if residual volume >400cc. -Recommend MD raman 2-3 days after discharge CODE: DNR Dispo: DC ready as soon as insurance will auth DVTP: [email or web address] Resident Tracking Resident Involvement: Resident Care Provided Care Provided: Adult Hospital Medicine
[2017-12-02] MEDS: ALBUT/IPRATROP 3MG/0.5MG NEB 3 ML VIAL INH SCH ×4 (03:25→12:00)
[2017-12-02 03:32] VITALS: PULSE 63; O2SAT 93
[2017-12-02 05:18] VITALS: BP 119/79; PULSE 86; TEMP 37; O2SAT 90
[2017-12-02] MEDS: NYSTATIN SUSP 500,000 U/5 ML UDC PO SCH ×3 (06:03→11:23)
[2017-12-02] MEDS: INSULIN ASPART 100 UNITS/ML 3 ML PEN SC SCH ×3 (06:03→12:53)
[2017-12-02] MEDS ORDERED: NURSING VERBAL MED ORDER ONE (06:15)
[2017-12-02 06:26] LABS: INR 2.3 (0.9-1.1)
[2017-12-02 07:34] VITALS: PULSE 82; O2SAT 96
[2017-12-02] MEDS: BUDESONIDE 0.5 MG/2 ML VIAL (PULMICORT) INH SCH ×2 (07:34→12:00)
[2017-12-02 08:01] VITALS: O2SAT 96
[2017-12-02] MEDS: ASPIRIN 81 MG CHEW PEG SCH (08:08)
[2017-12-02] MEDS: CARBAMAZEPINE 200 MG TAB PEG SCH (08:08)
[2017-12-02] MEDS: CITALOPRAM 40 MG TAB PEG SCH (08:08)
[2017-12-02] MEDS: AMOXICILLIN/CLAVULANATE SUSP 400 MG/5 ML GT SCH (08:08)
[2017-12-02] MEDS: LACTOBACILLUS ACIDOPHILUS (FLORANEX) TAB PEG SCH ×2 (08:08→12:49)
[2017-12-02] MEDS: LEVETIRACETAM ORAL SOLN 100MG/ML PEG SCH (08:09)
[2017-12-02 08:32] LABS: HEMATOCRIT 36.7 % (42-52); HEMOGLOBIN 11.9 g/dL (14.0-18.0); MEAN CELL VOLUME 98.4 fL (80-100); MEAN CORPUSCULAR HEMOGLOBIN 31.9 pg (25-34); MEAN CORPUSCULAR HGB CONC 32.4 g/dl (32-36); MEAN PLATELET VOLUME 9.3 fL (7.4-10.4); PLATELET COUNT 375 K/uL (130-400); RED CELL DISTRIBUTION WIDTH CV 14.6 % (11.5-14.5); WHITE BLOOD COUNT 8.82 K/uL (4.8-10.8)
[2017-12-02 08:39] LABS: INR 2.4 (0.9-1.1)
[2017-12-02 09:04] LABS: CALCIUM 9.5 mg/dl (8.5-10.1); CREATININE 0.77 mg/dl (0.60-1.40); POTASSIUM 4.3 mmol/L (3.5-5.1)
[2017-12-02] MEDS: PEPTAMEN 1.5 CAL 1000ML BAG PEG SCH (11:16)
[2017-12-02] MEDS: INSULIN GLARGINE SOLOSTAR 100 UNITS/ML 3 ML PEN SC SCH (11:22)
[2017-12-02 11:32] VITALS: BP 119/79; PULSE 82; TEMP 37; O2SAT 96
[2017-12-02 12:01] VITALS: O2SAT 96
[2017-12-02] MEDS ORDERED: IPRASOL4 INH (12:52)
--- NOTE | 2017-12-02 15:23 | Discharge Summary ---
Discharge Summary Date of Service Dec 02, 2017. Discharge Summary Admission Date: Nov 25, 2017 at 00:55 Discharge Date: Dec 02, 2017 Discharge Disposition: [facility] facility Principal Diagnosis: Pneumonia Problems/Secondary Diagnoses: Sepsis secondary to pneumonia with acute hypoxic respiratory failure COPD: unknown severity Recent extensive DVTs bilaterally H/O CVA with Seizure Disorder T2DM CKD Stage II Medication Reconciliation New Medications: Amoxicillin & Pot Clavulanate (Amoxicillin/Clavulanate P) 1 Meagan Meagan 10 ML GT BIDM for 4 Days, #8 Ipratropium-Albuterol (Duoneb) 3 Ml Nebu 3 ML INH Q4R for 30 Days q6h and q2h prn Continued Medications: Acetaminophen (Tylenol) 325 Mg Tab 650 MG PEG Q8 PRN for Pain, TAB Acetaminophen (Tylenol) 650 Mg Supp 650 MG RE Q6H PRN for MILD PAIN Amoxicillin (Amoxicillin) 875 Mg Tab 875 MG PEG BID for 4 Days, #8 (This prescription has been renewed) Aspirin (Aspirin Ec) 81 Mg Tab 81 MG PEG QAM Atorvastatin (Lipitor) 20 Mg Tab 20 MG PEG HS, TAB Bisacodyl (Bisacodyl) 5 Mg Tab 40 MG RE UD PRN for Constipation, #2 TAB Bisacodyl (Dulcolax) 5 Mg Tab 10 MG RE DAILY PRN for Constipation for 1 Day, #2 TAB Budesonide (Inhalation) (Pulmicort) 1 Mg/2 Ml Meagan 2 ML INH QID Carbamazepine (Tegretol) 100 Mg/5 Ml Susp 100 MG PEG HS Carbamazepine (Tegretol) 100 Mg/5 Ml Susp 400 MG PEG BID17 Citalopram Hydrobromide (Citalopram Hydrobromide) 40 Mg Tab 40 MG PEG QAM Guaifenesin (Guaifenesin) 100 Mg/5 Ml Syp 10 ML PEG Q6H Home O2 Therapy (Oxygen) Gas 3 LITERS NA CONTINOUS, BTL Insulin Glargine (Lantus) 100 Unit/Ml Inj 12 UNITS SQ QPM, VIAL Insulin Glargine (Lantus Solostar) 100 Unit/Ml Inj 8 UNITS SC QAM, PEN START 11/23/17 FOR 14 DAYS. Ipratropium-Albuterol (Duoneb) 3 Ml Nebu 1 TREATMENT INH Q8, INHA START 11/24/17 FOR 3 DAYS. Lactobacillus Acidophilus (Lactinex) Tab 1 TAB PEG TID, TAB Levetiractam (Levetiracetam) 100 Mg/1 Ml Soln 10 ML PEG BID Magnesium Hydroxide (Milk Of Magnesia) 30 Ml Susp 30 ML PEG Q72 HOURS PRN for Constipation, ML Metformin Hcl (Glucophage) 1,000 Mg Tab 1000 MG PEG BID, TAB Nutritional Supplements (Isosource 1.5 Anita) 1 Liq Liq 1 DOSE PEG HS START AT 2100, RUN AT 65ML/HOUR X 21 HOURS. Nystatin (Nystatin Suspension) 1 Ml Susp 5 ML PO Q6H Warfarin Sodium (Coumadin) 4 Mg Tab 4 MG PEG QPM, TAB [Water Flush] () 250 ML PEG Q6 PLUS 50 ML FLUSH, PRIOR TO AND AFTER MEDICATIONS. Discharge Exam ROS unable to assess PE General Appearance: WD/WN, no apparent distress Eyes: normal inspection, PERRL, EOMI, sclerae normal ENT: pharynx normal Neck: supple, no JVD, no carotid bruits, trachea midline Respiratory/Chest: chest non-tender, no respiratory distress, no accessory muscle use, + wheezing Cardiovascular: regular rate, rhythm, no edema, no gallop, no JVD, no murmur Abdomen: normal bowel sounds, non tender, soft Extremities: normal inspection, no pedal edema, no calf tenderness Neurologic/Psychiatric: alert, + aphasia, + pertinent finding (right sided hemiplegia) Skin: normal color, warm/dry, no rash Hospital Course Mr. Bergman is a 62 year old male with a past medical history of HTN, DMII, CKD, seizures, COPD, CVA with R hemiplegia and aphasia who presented with hypoxia and tachycardia and admitted for pneumonia treatment. Initial labs revealed leukocytosis and an elevated lactic acid. He is noncommunicative and cannot provide any further info. He has been treated with antibiotics, transitioned to PO augmentin, and breathing treatments. We recommend continued breathing treatments and head of bed >30 degrees along with continued monitoring of tube feed residuals to avoid recurrence of aspiration pneumonia. During this visit we addressed his code status with POA and sister, as noted below. He is now DNR. Sepsis secondary to pneumonia with acute hypoxic respiratory failure - Likely secondary to aspiration - Maintain sats>92%. Has been successfully weaned off of oxygen - currently on RA 94, and is reportedly on 3L of oxygen at home. - Transitioned IV Zosyn to augmentin 875 BID via PEG tube; 10 days total; today is day 8 of abx (3.5 more days required) - Aspiration precautions - maintain HOB elevations above 30 degrees, monitor tube feed residuals New Onset Fever, resolved - temp 38 4 nights ago; no temp elevation in >48 hours - blood cultures NGTD, CXR overall unchanged compared to admission and UA negative - UA does not show evidence of infection but does have RBCs - likely traumatic secondary to jeronimo catheter COPD: unknown severity - Please Continue DuoNeb and Pulmicort q2h prn and scheduled q6h Recent extensive DVTs bilaterally - INR 2.4 today, will dose 4mg today. Trend INR - CT found age-indeterminate PE. - Recent echo without evidence of significant heart strain - has evidence of mildly dilated R atrium and ventricle; presence of PFO H/O CVA with Seizure Disorder - R hemiplegia, aphasia, dysphagia - MCA thrombosis - Continue aspirin, atorvastatin daily - Continue Tegretol 200 mg QID and 100 mg HS; Keppra 1000 mg BID T2DM - Continue home Diabetes regimen - Monitor glucose CKD Stage II: -STABLE -Patient had jeronimo catheter while hospitalized. Removed prior to discharge. Recommend bladder scan and re-insertion of jeronimo if residual volume >400cc. -Recommend MD raman in 2-3 days FULL CODE As per Dr. Stein: "Mr. Kim, [facility] of intellectual disability is a resident of [facility] in [place] since 2007. In September, he suffered a stroke that left him expressive aphasia and dysphagia. He had since been in [facility] for rehab. He was treated at [facility] for aspiration PNA and discharged earlier this week to return 11/25 with respiratory distress, hypoxia. Spoke with his medical case manager; Trisha Acevedo [phone]--she will be visiting the patient while he is in the hospital. She says that he has had limited contact with family over the years. Trisha is his designated POA. She states that as a requirement of his [facility] his resuscitation status is full code. She does relate that in circumstances this can changed if the patient is in a coma requiring mechanical ventilation. Will follow up on this. Also spoke with the primary from [facility] as well as his sister Trudy Pittman." Discussed case further with . Trisha Acevedo yesterday. We discussed patient 's prognosis and as above, she states that the code status would not be changed unless his condition would be terminal. I discussed his [facility] prognosis and the likelihood of him requiring multiple readmissions in the future as well as the chances of him regaining much of his functioning that he had prior to the CVA. She is going to discuss this with her cigar making supervisor and patient's family. We also discussed possibility of involving palliative care in the future and eventual need to discuss goals of care. Patient is high risk for readmission, considering his baseline status, complex and terminal medical conditions including stroke with R-sided hemiplegia/ nonverbal status preventing comprehension of medical conditions and compliance, and previous admissions for aspiration pneumonia 12/01/17 I was called to a code purple on the patient. At the bedside was notified that the patient has been becoming progressively more tacchypneic over the course of the afternoon. No mention of hypoxia of fevers. On examination, he was tacchypneic but no evidence of acute wheezing. No crackles were appreciated. Stat labs were ordered including: - CBC, BMP, Pro-anita, Troponin - EKG was done and reviewed at the bed side and did not show any ischemic or concern changes - CXR was done and showed improvement in left-sided infiltrate. Nebulizer treatment seemed to work. Repeat blood cultures were not done nor antibiotics broadened as there were no other objective signs of worsening infection. The episode did concern in regards to goals of care in the event that he worsens to the point of cardiopulmonary arrest. I did call the patient's ' State Appointed Decision-Maker', Trisha Acevedo. I informed her of the acute situation and while at this time may not lead to cardiopulmonary arrest, what the goals of care would be if heart and lungs were to stop working. I did emphasize my concern that in his given state of permanent disability from recent CVA, dysphagia, risk of aspiration that if a breathing tube were inserted the prospect of it ever being removed would is extremely small. I urged consideration as to whether it would be placed to begin with if that was ever needed. Furthermore, I discussed performing chest compressions, the risks , and the very minimal prospect of resuscitating him to a meaningful quality of life. I conveyed my impression that aggressive resuscitative measures as a whole would overall be more harmful with only small likelihood of meaningful benefit. Mrs. Acevedo discussed the case with her cigar making supervisor Talya Castrejon and she requested that the decision be made by patient's sister Trudy Pittman. I phone Trudy Pittman and relayed all of my above concerns to her. She states "I've said I wouldn't want him to have a breathing tube but they said it wasn't my decision , now they say I have to decided. She did explicitly state that "I wouldn't want him to have a breathing tube and I don't think he would either". Regarding chest compressions after expressing my concerns, she confirmed that she would not want him to have chest compressions if there was minimal chance of meaningful recovery. I asked if she thought it best at this point that his code status be changed to level 5 DNR and she was in agreement. Patients decision-maker Trisha was phone back immediately to discuss my discussion with Patient's sister Trudy. Trisha aknowledged her agreement to change the patient's code status at this point to a DNR. I have re-iterated both to the sister and decision-maker that treatments including nebulizers, fluids, antibiotics can all still be administered, but that life threatening illness would be treated supportively. I have asked both Trisha and Trudy to speak to each other to make sure that all 3 of us are in agreement on this plan moving forward. The patient code status is now a Level 5 DNR and now reflected in the chart. Total Time Spent: Less than 30 minutes This includes examination of the patient, discharge planning, medication reconciliation, and communication with other providers. Discharge Instructions Please refer to the electronic Patient Visit Report (Discharge Instructions) for additional information. Additional Copies To [facility] Resident Tracking Resident Involvement: Resident Care Provided Care Provided: Adult Hospital Medicine
== END 2017-12-02 16:19 | DRG 871 ==
LOC: EDBD 21:31 → C.EDB 21:35 → C.2T 11-25 00:55 → ENRESERV 11-25 01:08 → C.MED 11-26 06:33
PROVIDERS: ADMIT Hospitalist; ATTEND Hospitalist
DX: A41.9 Sepsis, unspecified organism (principal); J69.0 Pneumonitis due to inhalation of food and vomit; I69.353 Hemiplegia and hemiparesis following cerebral infarction affecting right non-dominant side; J96.01 Acute respiratory failure with hypoxia; I69.320 Aphasia following cerebral infarction; I12.9 Hypertensive chronic kidney disease with stage 1 through stage 4 chronic kidney disease, or unspecified chronic kidney disease; N18.2 Chronic kidney disease, stage 2 (mild); J44.9 Chronic obstructive pulmonary disease, unspecified; E11.9 Type 2 diabetes mellitus without complications; Z86.718 Personal history of other venous thrombosis and embolism; I73.9 Peripheral vascular disease, unspecified; Z87.891 Personal history of nicotine dependence; Z79.4 Long term (current) use of insulin; Z79.84 Long term (current) use of oral hypoglycemic drugs; Z88.8 Allergy status to other drugs, medicaments and biological substances; I69.391 Dysphagia following cerebral infarction; G40.909 Epilepsy, unspecified, not intractable, without status epilepticus; Z79.2 Long term (current) use of antibiotics; F79 Unspecified intellectual disabilities; Z93.1 Gastrostomy status

== ENCOUNTER → 2017-12-08 | Outpatient (CLI) | payer OTHER ==
[~2017-12-08] MED LIST changes: -AMOX1TAB43 PO; +AMOX400S2 GT; +AMX875 PEG; -ASPEC81 PO; +ASPI81TA28 PEG; -ATRINS INH; -CARB1CAP8 PEG; -CARB200T PEG; -CMD2 PEG; +GUAI100S16 PEG; +IPRASOL4 INH; +NUTR1.5L4 PEG; +OXGN; +WARF4TAB PEG; +[UNRECOGNIZED DRUG - CODE] PEG; -[UNRECOGNIZED DRUG - MIXTURE] PEG
[2017-12-08 09:32] LABS: HEMATOCRIT 35.4 % (42-52); HEMOGLOBIN 11.1 g/dL (14.0-18.0); MEAN CELL VOLUME 99.2 fL (80-100); MEAN CORPUSCULAR HEMOGLOBIN 31.1 pg (25-34); MEAN CORPUSCULAR HGB CONC 31.4 g/dl (32-36); MEAN PLATELET VOLUME 9.9 fL (7.4-10.4); PLATELET COUNT 368 K/uL (130-400); RED CELL DISTRIBUTION WIDTH CV 13.9 % (11.5-14.5); RED CELL DISTRIBUTION WIDTH SD 49.6 fL (36.4-46.3)
[2017-12-08 09:48] LABS: ALBUMIN 2.6 gm/dl (3.4-5.0); ALT/SGPT 38 U/L (12-78); BLOOD UREA NITROGEN 13 mg/dl (7-18); CALCIUM 8.5 mg/dl (8.5-10.1); CARBON DIOXIDE 33 mmol/L (21-32); CREATININE 0.73 mg/dl (0.60-1.40); GLUCOSE 275 mg/dl (70-99); INR 4.6 (0.9-1.1); SODIUM 136 mmol/L (136-145)
[2017-12-08 09:51] LABS: ALKALINE PHOSPHATASE 84 U/L (45-117); AST/SGOT 19 U/L (15-37); TOTAL PROTEIN 6.3 gm/dl (6.4-8.2)
== END | disposition home or self-care (01) ==
LOC: C.LABUPBEA 09:06
PROVIDERS: ATTEND Nurse Practitioner Family
DX: N18.2 Chronic kidney disease, stage 2 (mild) (principal); I73.9 Peripheral vascular disease, unspecified

== ENCOUNTER → 2017-12-10 | Outpatient (CLI) | payer OTHER ==
[2017-12-10 08:46] LABS: INR 1.4 (0.9-1.1)
== END | disposition home or self-care (01) ==
LOC: C.LABUPBEA 08:16
PROVIDERS: ATTEND Nurse Practitioner Family
DX: I73.9 Peripheral vascular disease, unspecified (principal); I63.311 Cerebral infarction due to thrombosis of right middle cerebral artery

== ENCOUNTER → 2017-12-13 | Outpatient (CLI) | payer OTHER | LOC: C.LABUPBEA 08:37 | PROVIDERS: ATTEND Nurse Practitioner Family | DX: I63.311 Cerebral infarction due to thrombosis of right middle cerebral artery (principal) ==

== ENCOUNTER → 2017-12-15 | Outpatient (CLI) | payer OTHER ==
[2017-12-15 08:38] LABS: INR 0.9 (0.9-1.1)
== END ==
LOC: C.LABUPBEA 08:07
PROVIDERS: ATTEND Nurse Practitioner Family
DX: I63.311 Cerebral infarction due to thrombosis of right middle cerebral artery (principal)

== ENCOUNTER → 2017-12-18 | Outpatient (CLI) | payer OTHER | LOC: C.LABUPBEA 10:01 | PROVIDERS: ATTEND Nurse Practitioner Family | DX: I63.311 Cerebral infarction due to thrombosis of right middle cerebral artery (principal) ==

== ENCOUNTER → 2017-12-19 | Outpatient (CLI) | payer OTHER ==
[2017-12-19 07:04] LABS: INR 2.2 (0.9-1.1)
== END ==
LOC: C.LABUPBEA 09:57
PROVIDERS: ATTEND Nurse Practitioner Family
DX: I63.311 Cerebral infarction due to thrombosis of right middle cerebral artery (principal)

== ENCOUNTER → 2017-12-21 | Outpatient (CLI) | payer OTHER | LOC: C.LABUPBEA 08:22 | PROVIDERS: ATTEND Nurse Practitioner Family | DX: I63.311 Cerebral infarction due to thrombosis of right middle cerebral artery (principal) ==

== ENCOUNTER → 2017-12-22 | Outpatient (CLI) | payer OTHER | LOC: C.LABUPBEA 07:44 | PROVIDERS: ATTEND Nurse Practitioner Family | DX: I63.311 Cerebral infarction due to thrombosis of right middle cerebral artery (principal) ==

== ENCOUNTER → 2017-12-24 | Outpatient (CLI) | payer OTHER ==
[2017-12-24 08:56] LABS: INR 2.5 (0.9-1.1)
== END ==
LOC: C.LABUPBEA 08:27
PROVIDERS: ATTEND Nurse Practitioner Family
DX: I63.311 Cerebral infarction due to thrombosis of right middle cerebral artery (principal)

== ENCOUNTER → 2018-01-05 | Outpatient (CLI) | payer OTHER ==
[2018-01-05 09:43] LABS: ALBUMIN 2.9 gm/dl (3.4-5.0); ALT/SGPT 20 U/L (12-78); BLOOD UREA NITROGEN 16 mg/dl (7-18); CARBON DIOXIDE 32 mmol/L (21-32); CREATININE 0.53 mg/dl (0.60-1.40); GLUCOSE 98 mg/dl (70-99); POTASSIUM 3.8 mmol/L (3.5-5.1); SODIUM 138 mmol/L (136-145)
[2018-01-05 09:46] LABS: ALKALINE PHOSPHATASE 76 U/L (45-117); AST/SGOT 11 U/L (15-37); TOTAL PROTEIN 6.7 gm/dl (6.4-8.2)
== END ==
LOC: C.LABUPBEA 09:15
PROVIDERS: ATTEND Nurse Practitioner Family
DX: J18.9 Pneumonia, unspecified organism (principal)

== ENCOUNTER → 2018-02-01 | Outpatient (CLI) | payer OTHER ==
[~2018-02-01] MED LIST changes: -GUAI100S16 PEG; +GUAI100S66 PEG
[2018-02-01 08:46] LABS: HEMATOCRIT 40.4 % (42-52); HEMOGLOBIN 12.9 g/dL (14.0-18.0); MEAN CELL VOLUME 94.6 fL (80-100); MEAN CORPUSCULAR HEMOGLOBIN 30.2 pg (25-34); MEAN CORPUSCULAR HGB CONC 31.9 g/dl (32-36); MEAN PLATELET VOLUME 11.7 fL (7.4-10.4); PLATELET COUNT 234 K/uL (130-400); RED CELL DISTRIBUTION WIDTH CV 14.8 % (11.5-14.5); RED CELL DISTRIBUTION WIDTH SD 50.7 fL (36.4-46.3); WHITE BLOOD COUNT 9.45 K/uL (4.8-10.8)
== END ==
LOC: C.LABUPBEA 08:34
PROVIDERS: ATTEND Nurse Practitioner Family
DX: E11.00 Type 2 diabetes mellitus with hyperosmolarity without nonketotic hyperglycemic-hyperosmolar coma (NKHHC) (principal); N18.2 Chronic kidney disease, stage 2 (mild)

== ENCOUNTER 2018-02-24 13:39 | Emergency (ER) | payer OTHER ==
[~2018-02-24] VITALS: Ht 167.6 cm; Wt 81.4 kg
[2018-02-24 13:41] VITALS: TEMP 37; Ht 167.6 cm; Wt 81.4 kg
--- NOTE | 2018-02-24 14:17 | EMERGENCY ROOM VISIT NOTE ---
History Report prepared by Dana: Natalya Ann Under the Supervision of: Dr. Jaime Estrada M.D. First contact with patient: 14:01 Chief Complaint: OTHER COMPLAINT Stated Complaint: PULLED OUT PEG TUBE History of Present Illness The patient is a 62 year old white male with a past medical history of CKD, COPD , diabetes, DVT, CVA, HLD, pneumonia, PVD who presents to the ED with a cc of a persistently dislodged PEG tube beginning earlier today. The history is limited secondary to patient's aphasia. PEG tube was place at [facility]. Prior records do not note the size. Source of History: nursing staff History Limited By: aphasia Onset: earlier today Position: abdomen Quality: other (PEG tube dislodged) Timing: other (persistent) Review of Systems Limited secondary to patient's aphasia. Past Medical & Surgical Medical Problems: (1) Aspiration pneumonia (2) CKD (chronic kidney disease) (3) COPD (chronic obstructive pulmonary disease) (4) Diabetes (5) DVT (deep venous thrombosis) (6) History of CVA (cerebrovascular accident) (7) HLD (hyperlipidemia) (8) Pneumonia (9) PVD (peripheral vascular disease) Family History Limited secondary to patient's aphasia. Social History Smoking Status: Unknown if Ever Smoked Marital Status: single Housing Status: fpc Occupation Status: unemployed Current/Historical Medications Scheduled Aspirin (Aspirin Ec), 81 MG PEG QAM Atorvastatin (Lipitor), 20 MG PEG HS Carbamazepine (Tegretol), 100 MG PEG HS Carbamazepine (Tegretol), 400 MG PEG BID17 Citalopram Hydrobromide (Citalopram Hydrobromide), 40 MG PEG QAM Guaifenesin (Guaifenesin), 10 ML PEG Q6H Home O2 Therapy (Oxygen), 3 LITERS NA CONTINOUS Insulin Glargine (Lantus), 15 UNITS SQ HS Ipratropium-Albuterol (Duoneb), 1 TREATMENT INH Q4H Lactobacillus Acidophilus (Lactinex), 1 TAB PEG TID Levetiractam (Levetiracetam), 10 ML PEG BID Metformin Hcl (Glucophage), 1,000 MG PEG BID Nutritional Supplements (Isosource 1.5 Aron), 1 DOSE PEG HS Rivaroxaban (Xarelto), 20 MG PEG DAILY [Water Flush], 250 ML PEG Q6 Scheduled PRN Acetaminophen (Tylenol), 650 MG PEG Q8 PRN for Pain Acetaminophen (Tylenol), 650 MG RE Q6H PRN for MILD PAIN Bisacodyl (Bisacodyl), 40 MG RE UD PRN for Constipation Bisacodyl (Bisacodyl), 10 MG AZ for Constipation Glucagon (Glucagon Emergency Kit), 1 MG IM for Hypoglycemia Treatment Magnesium Hydroxide (Milk Of Magnesia), 30 ML PEG Q72 HOURS PRN for Constipation Mineral Oil (Enema Mineral Oil), 1 UNIT AZ for Constipation Triamcinolone Acet (Triamcinolone Acetonide), 1 APPLN TOP Q12 PRN for facial eczema Allergies Coded Allergies: Bee Venom (Verified Allergy, Unknown, LISTED ON DEC, 02/24/18) Pseudoephedrine (Verified Allergy, Unknown, UNKNOWN, 02/24/18) Physical Exam Vital Signs Date Time Temp Pulse Resp B/P (MAP) Pulse Ox O2 Delivery O2 Flow Rate FiO2 02/24/18 15:35 95 20 136/88 94 Room Air 02/24/18 13:41 37.0 103 18 122/85 91 Room Air Physical Exam GENERAL: Awake, alert, well-appearing, NAD HENT: Normocephalic, atraumatic. EYES: Normal conjunctiva. Sclera non-icteric. PERRL. No anisocoria. Right eye esotropia. NECK: Supple. No nuchal rigidity. FROM. RESPIRATORY: Diffuse wheezing. CARDIAC: RRR, no MRG ABDOMEN: Soft, NTND, BS+, 16 Luxembourger Grace catheter in LUQ draining clear fluid. MSK: No chest wall TTP, no LE edema NEURO: GCS 15, expressive aphasia, right sided hemiplegia. SKIN: No rash or jaundice noted. Medical Decision & Procedures Procedure PEG Tube Placement Indication: PEG tube displacement Site: LUQ Procedure note: Consent was implied given that the patient does have an aphasia and does require his PEG tube for feedings. The Grace catheter was removed. The 22-gauge tube was lubricated with sterile lubricating jelly and was advanced approximately 4 cm. The patient tolerated this portion of the procedure well. The balloon was inflated with 20 cc of sterile saline. Additional gauze was placed at the insertion site and the stopper was advanced to help secure the PEG tube in place. Gastric contents were aspirated from the G-tube site in the G-tube was taped to the patient's abdominal wall. ED Course 1404: The patient was evaluated in room B11B. A complete history and physical exam was performed. 1445: PEG tube was replaced. The patient was discharged home. Medical Decision Nursing notes reviewed. Ancillary studies and prior records reviewed. The patient is a 62 year old white male with a past medical history of CKD, COPD , diabetes, DVT, CVA, HLD, pneumonia, PVD who presents to the ED with a cc of a persistently dislodged PEG tube beginning earlier today. Differential diagnosis: PEG tube displacement. Patient was seen and evaluated the bedside. Patient had presented from his long -term care facility with concerns that his PEG tube had been dislodged. There was placement of a 16 Luxembourger Grace catheter which is draining clear fluid at the bedside. Patient does have a significant expressive aphasia and dense right -sided hemiparesis from prior CVA. Patient otherwise is well-appearing and does not seem uncomfortable when he is palpated over the chest and abdomen. The Grace catheter was left in place and I did ask the nurse to help obtain different PEG tubes which potentially could have been placed at the bedside. A 22 Luxembourger was placed at the bedside. This appeared to be of similar caliber as to the prior that he had removed today. Light pressure was applied and the patient tolerated the procedure well. I did aspirate gastric contents. The balloon was inflated with 20 cc of saline and gauze was placed at the abdomen. Given that the patient had this placed in [place] many months ago I do not believe that he requires any imaging at this time given that the patient has gastric contents aspirated and a long-standing history of the PEG tube. Patient was deemed suitable for outpatient follow-up and treatment at this time. Patient was given strict follow-up, discharge, and return precautions. All questions were answered. Patient was deemed suitable for outpatient follow- up at this time. Patient agreed with the plan of care and was safely discharged home. Medication Reconcilliation Current Medication List: was personally reviewed by me Blood Pressure Screening Patient's blood pressure: Normal blood pressure Blood pressure disposition: Did not require urgent referral Impression Primary Impression: Status post insertion of percutaneous endoscopic gastrostomy (PEG) tube Additional Impression: PEG tube malfunction Scribe Attestation The scribe's documentation has been prepared under my direction and personally reviewed by me in its entirety. I confirm that the note above accurately reflects all work, treatment, procedures, and medical decision making performed by me. Departure Information Dispostion Home / Self-Care Referrals Leyla Post (PCP) Patient Instructions [facility] Additional Instructions Please return to the emergency department if you have worsening or recurrent symptoms not amenable to at-home treatment. Please call for a follow-up appointment with her primary care physician. Please take your medications as prescribed. If you have other concerns and/or complaints please feel free to also call your primary care physician's office or return the ED for further evaluation, management, and treatment. Take your medications as prescribed. You have been examined and treated today on an emergency basis only. This is not a substitute for, or an effort to provide, complete comprehensive medical care. It is impossible to recognize and treat all injuries or illnesses in a single emergency department visit. It is therefore important that you follow up closely with [facility], your PCP, and/or your specialist(s). Call as soon as possible for an appointment. Thank you for your time and consideration. I look forward to speaking with you again soon. Please don't hesitate to call us if you have any questions. Problem Qualifiers
[2018-02-24] MEDS ORDERED: TRIA0.5C4 TOP (14:30)
[2018-02-24] MEDS ORDERED: GLGKIT IM (14:30)
[2018-02-24] MEDS ORDERED: RIVA1TAB4 PEG (14:30)
[2018-02-24] MEDS ORDERED: BISA10SU5 PR (14:30)
[2018-02-24] MEDS ORDERED: IPRASOL4 INH (14:30)
[2018-02-24] MEDS ORDERED: MINEENE9 PR (14:30)
[2018-02-24 15:35] VITALS: BP 136/88; PULSE 95; O2SAT 94
== END 2018-02-24 15:49 | disposition home or self-care (01) ==
LOC: EDBD 13:43 → C.EDB 13:44
DX: K94.23 Gastrostomy malfunction (principal); R47.01 Aphasia; N18.9 Chronic kidney disease, unspecified; J44.9 Chronic obstructive pulmonary disease, unspecified; E11.51 Type 2 diabetes mellitus with diabetic peripheral angiopathy without gangrene; Z86.718 Personal history of other venous thrombosis and embolism; E78.5 Hyperlipidemia, unspecified; I73.9 Peripheral vascular disease, unspecified; Z79.82 Long term (current) use of aspirin; Z99.81 Dependence on supplemental oxygen; Z79.01 Long term (current) use of anticoagulants; Z79.4 Long term (current) use of insulin

== ENCOUNTER → 2018-05-12 | Outpatient (CLI) | payer OTHER ==
[~2018-05-12] MED LIST changes: -AMOX400S2 GT; -AMX875 PEG; -BISA-16 RE; +BISA10SU5 PR; -BISA1TAB15 RE; -BUDE1SUS INH; +GLGKIT IM; +HYOS1TAB PEG; -INSDGIPEN SC; +IPRA-64 NEB; -IPRASOL4 INH; +MINEENE9 PR; -NUTR1.5L4 PEG; -NYSS/ PO; -OXGN; +RIVA1TAB4 PEG; +TRAZ50TA35 PEG; +TRIA0.5C4 TOP; -WARF4TAB PEG; -WATER FLUSH PEG; +[UNRECOGNIZED DRUG - CODE] PEG
[2018-05-12 10:08] LABS: CREATININE 0.65 mg/dl (0.60-1.40)
[2018-05-12 10:17] LABS: HEMOGLOBIN A1C 6.8 % (4.5-5.6)
== END | disposition home or self-care (01) ==
LOC: C.LABUPBEA 09:27
PROVIDERS: ATTEND Nurse Practitioner Family
DX: N18.2 Chronic kidney disease, stage 2 (mild) (principal); E11.00 Type 2 diabetes mellitus with hyperosmolarity without nonketotic hyperglycemic-hyperosmolar coma (NKHHC)

== ENCOUNTER 2019-03-25 22:22 | Inpatient (IN) ==
[2019-03-25 23:04] LABS: Basophils # (auto) 0.03 K/uL (0-0.2); Basophils % (auto) 0.2 %; Eosinophils # (auto) 0.01 K/uL (0-0.5); Eosinophils % (auto) 0.1 %; Hematocrit (blood only) 43.4 % (42-52); Hemoglobin 14.3 g/dL (14.0-18.0); Immature Granulocytes # (auto) 0.04 K/uL (0.00-0.02); Immature Granulocytes % (auto) 0.2 %; Lymphocytes # (auto) 0.62 K/uL (1.2-3.4); Lymphocytes % (auto) 3.6 %; Mean Corpuscular Hgb Conc 32.9 g/dL (32-36); Mean Corpuscular Volume 95.6 fL (80-100); Mean Platelet Volume 10.1 fL (7.4-10.4); Monocytes # (auto) 1.21 K/uL (0.11-0.59); Monocytes % (auto) 7.1 %; Neutrophils # (auto) 15.23 K/uL (1.4-6.5); Neutrophils % (auto) 88.8 %; Platelet Count 283 K/uL (130-400); RDW Coefficient of Variation 14.2 % (11.5-14.5); RDW Standard Deviation 49.6 fL (36.4-46.3); Red Blood Count 4.54 M/uL (4.7-6.1); White Blood Count 17.14 K/uL (4.8-10.8)
[2019-03-25 23:14] LABS: Partial Thromboplastin Ratio 0.9; Partial Thromboplastin Time 24.5 Seconds (21.0-31.0); Prothrombin Time 10.2 Seconds (9.0-12.0)
[2019-03-25 23:29] LABS: Alanine Aminotransferase 24 U/L (12-78); Albumin Level 3.4 gm/dl (3.4-5.0); Aspartate Aminotransferase 11 U/L (15-37); BUN Creatinine Ratio 21.3 (10-20); Blood Urea Nitrogen 16 mg/dl (7-18); Calcium 9.9 mg/dl (8.5-10.1); Carbon Dioxide 32 mmol/L (21-32); Chloride 102 mmol/L (98-107); Est GFR (African American) 114.8; Glucose 188 mg/dl (70-99); Potassium 4.4 mmol/L (3.5-5.1); Sodium 140 mmol/L (136-145)
[2019-03-25 23:34] LABS: Albumin Globulin Ratio 0.8 (0.9-2); Alkaline Phosphatase 103 U/L (45-117); Bilirubin,Total 0.3 mg/dl (0.2-1); Globulin 4.5 gm/dl (2.5-4.0); Total Protein 7.9 gm/dl (6.4-8.2); Troponin I < 0.015 ng/ml (0-0.045)
[2019-03-26] MEDS ORDERED: PIPERACILL/TAZOBAC CONSULT ACTIVE PRN ×2 (00:21→04:16)
[2019-03-26] MEDS ORDERED: PIPERACILLIN/TAZOBACTAM 4.5 GM/120 ML BAG IV ONE (00:21)
--- NOTE | 2019-03-26 02:01 | Emergency Department Note ---
Entered by Sharad Ortiz acting as a scribe for Kyree King MD History of Present Illness General Chief complaint: Vomiting Time Seen by Provider: 03/25/19 22:24 Source: EMS and RN notes reviewed Limitations: altered mental status History of Present Illness Onset (ago): hour(s) (CAR STOWER) Location: abdomen Pain Consistency: + other (episode) Quality: + other (thick brown vomit) The patient is a 63 year old male who presents to the Emergency Room with complaints of an episode of vomiting occurring CAR STOWER. EMS states the patient had an episode of large thick brown emesis. Nursing notes the patient had a CVA last October. HPI is limited due to previous stroke and a aphasia. Apparently there is been no trauma or recent illness. He does have a PEG tube in place. Home Medications Home Medications Medication Instructions Recorded Confirmed Type Enteral Feed 1 dose PEG 5XD 11/01/18 03/25/19 History Glucagon Emergency Kit (human) 1 dose IM UD PRN 11/01/18 03/25/19 History Lactobacillus acidophilus 1 cap FEEDING TUBE TID 11/01/18 03/25/19 History Xarelto 20 mg G-TUBE HS 11/01/18 03/25/19 History acetaminophen 650 mg FEEDING TUBE Q8 PRN 11/01/18 03/25/19 History acetaminophen 650 mg AR Q6H PRN 11/01/18 03/25/19 History aspirin 81 mg FEEDING TUBE DAILY 11/01/18 03/25/19 History atorvastatin 20 mg FEEDING TUBE HS 11/01/18 03/25/19 History bisacodyl [Dulcolax (bisacodyl)] 10 mg AR DAILY PRN 11/01/18 03/25/19 History budesonide 0.5 mg INHALATION Q8 11/01/18 03/25/19 History carbamazepine 100 mg FEEDING TUBE HS 11/01/18 03/25/19 History carbamazepine 400 mg FEEDING TUBE BID 11/01/18 03/25/19 History citalopram 40 mg FEEDING TUBE QAM 11/01/18 03/25/19 History guaifenesin 10 ml FEEDING TUBE Q6 11/01/18 03/25/19 History hyoscyamine sulfate [Levsin] 0.125 mg FEEDING TUBE Q8 PRN 11/01/18 03/25/19 History ipratropium-albuterol 3 ml INHALATION Q6 11/01/18 03/25/19 History levetiracetam 10 ml FEEDING TUBE BID 11/01/18 03/25/19 History magnesium hydroxide [Milk of 30 ml FEEDING TUBE UD PRN 11/01/18 03/25/19 History Magnesia] metformin 1,000 mg FEEDING TUBE BIDM 11/01/18 03/25/19 History mineral oil [Fleet Mineral Oil] 118 ml AR DAILY PRN 11/01/18 03/25/19 History trazodone 25 mg FEEDING TUBE TID 11/01/18 03/25/19 History triamcinolone acetonide 1 applic TOPICAL Q12 PRN 11/01/18 03/25/19 History insulin glargine 15 unit SUBCUT HS 11/29/18 03/25/19 History silver sulfadiazine 1 applic TOPICAL BID 03/25/19 03/25/19 History Allergies Allergy/AdvReac Type Severity Reaction Status Date / Time bee venom protein (honey bee) Allergy Unknown LISTED ON Verified 03/25/19 22:43 MAR pseudoephedrine Allergy Unknown UNKNOWN Verified 03/25/19 22:43 Past Med/Surg History Medical History History of CVA (cerebrovascular accident) 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 COPD (chronic obstructive pulmonary disease) Diabetes type 2 HLD (hyperlipidemia) PVD (peripheral vascular disease) CKD (chronic kidney disease) stage 2 Aspiration pneumonia DVT (deep venous thrombosis) Pneumonia (Acute) Aphasia Asthma Conversion disorder with seizures or convulsions Difficulty in walking Epilepsy with status epilepticus GERD (gastroesophageal reflux disease) Gastrostomy infection Generalized muscle weakness 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 and A total of 10 systems reviewed and were otherwise negative Physical Exam Vital Signs Vital Signs - 24 hr 03/25/19 22:25 03/25/19 22:32 03/25/19 22:36 Temperature 37.8 C H Temperature Source Oral Sepsis Recent Fever Within 48 Hours No Sepsis Action Taken by Nursing No Action Required Pulse Rate 105 H 107 H 104 H Pulse Rate from SpO2 Sensor 105 H 107 H Respiratory Rate 23 18 22 Respiratory Depth Normal Blood Pressure 120/82 120/82 Blood Pressure Mean 94 94 Pulse Oximetry 93 95 95 Oxygen Delivery Method Nasal Cannula Oxygen Flow Rate 3 03/25/19 22:55 03/25/19 23:00 03/25/19 23:02 Temperature Temperature Source Sepsis Recent Fever Within 48 Hours Sepsis Action Taken by Nursing Pulse Rate 106 H 103 H Pulse Rate from SpO2 Sensor 105 H 104 H Respiratory Rate 22 19 Respiratory Depth Blood Pressure 113/74 Blood Pressure Mean 87 Pulse Oximetry 96 95 95 Oxygen Delivery Method Nasal Cannula Oxygen Flow Rate 3 03/25/19 23:30 03/26/19 00:00 03/26/19 00:30 Temperature Temperature Source Sepsis Recent Fever Within 48 Hours Sepsis Action Taken by Nursing Pulse Rate 103 H 96 H 99 H Pulse Rate from SpO2 Sensor 103 H 97 H 99 H Respiratory Rate 18 20 22 Respiratory Depth Blood Pressure 120/79 134/88 122/91 Blood Pressure Mean 92 103 101 Pulse Oximetry 96 97 96 Oxygen Delivery Method Oxygen Flow Rate 03/26/19 01:00 03/26/19 01:30 Temperature Temperature Source Sepsis Recent Fever Within 48 Hours Sepsis Action Taken by Nursing Pulse Rate 95 H 94 H Pulse Rate from SpO2 Sensor 94 H 94 H Respiratory Rate 14 18 Respiratory Depth Blood Pressure 127/91 122/77 Blood Pressure Mean 103 92 Pulse Oximetry 97 96 Oxygen Delivery Method Oxygen Flow Rate General: Chronically-ill appearing middle-aged male in no acute distress. HEENT: Normal cephalic atraumatic. Pupils are equal round and reactive to light. Extraocular movements are intact. Oropharynx is pink with moist mucous membranes. No swelling of the mouth lips or tongue. Neck: Supple with a midline trachea. No meningeal signs or stiffness, no JVD or bruits. No Stridor. Chest: Clear to auscultation bilaterally. No wheezes. No increased work of breathing. No respiratory distress but has rhonchorous upper airway noises. Heart: regular rate and rhythm. Abdomen: Soft nontender, nondistended without rebound guarding or rigidity. PEG tube in place which is not warm or red. Extremities: No cyanosis clubbing or edema. No calf tenderness or asymmetry Spine/Back. Non tender to palpation. No CVA tenderness Skin: Good turgor without rashes. There is some abrasions in LLQ of abdomen. Neurologic exam: At baseline patient does speak but does has aphasia. Baseline weakness on right side. Course 2227: The patient was evaluated in room C11B, and a complete history and physical examination were performed. 0002: I reevaluated the patient. He appears stable. 0035: I discussed the patient's case with Dr. Shahnaz Callaway - [facility] Hospitalist. She will evaluate the patient for further management Administered Medications Discontinued Medications Piperacillin Sod/Tazobactam Sod (Zosyn) 4.5 gm in 120 mls @ 240 mls/hr IV NOW ONE Stop: 03/26/19 00:50 Last Infusion: 03/26/19 01:01 Dose: 0 mls/hr Documented by: [id number] Admin: 03/26/19 00:23 Dose: 240 mls/hr Documented by: [id number] Medical Decision Making Differential Diagnosis Differential Diagnosis: GI bleed, aspiration, bowel obstruction, infection, sepsis, and electrolyte imbalance. Medical Records Attestation: I reviewed the patient's medical records. Home Medications Current Medication List: was personally reviewed by me Laboratory Data Attestation: I reviewed the patient's lab results. Result diagrams: 03/25/19 22:52 03/25/19 22:52 Lab Results 03/25/19 03/25/19 03/25/19 Range/Units 22:52 22:52 22:52 WBC 17.14 H (4.8-10.8) K/uL RBC 4.54 L (4.7-6.1) M/uL Hgb 14.3 (14.0-18.0) g/dL Hct 43.4 (42-52) % MCV 95.6 (80-100) fL MCH 31.5 (25-34) pg MCHC 32.9 (32-36) g/dL RDW Std Deviation 49.6 H (36.4-46.3) fL RDW Coeff of Nick 14.2 (11.5-14.5) % Plt Count 283 (130-400) K/uL MPV 10.1 (7.4-10.4) fL Immature Gran % (Auto) 0.2 % Neut % (Auto) 88.8 % Lymph % (Auto) 3.6 % Rusk % (Auto) 7.1 % Eos % (Auto) 0.1 % Baso % (Auto) 0.2 % Immature Gran # (Auto) 0.04 H (0.00-0.02) K/uL Neut # (Auto) 15.23 H (1.4-6.5) K/uL Lymph # (Auto) 0.62 L (1.2-3.4) K/uL Rusk # (Auto) 1.21 H (0.11-0.59) K/uL Eos # (Auto) 0.01 (0-0.5) K/uL Baso # (Auto) 0.03 (0-0.2) K/uL PT 10.2 (9.0-12.0) Seconds INR 1.0 (0.9-1.1) APTT 24.5 (21.0-31.0) Seconds PTT Ratio 0.9 Sodium 140 (136-145) mmol/L Potassium 4.4 (3.5-5.1) mmol/L Chloride 102 (98-107) mmol/L Carbon Dioxide 32 (21-32) mmol/L Anion Gap 6.0 (3-11) BUN 16 (7-18) mg/dl Creatinine 0.75 (0.6-1.4) mg/dl Est Cr Clr Drug Dosing Not Reportable Est GFR ( Amer) 114.8 Est GFR (Non-Af Amer) 99.0 BUN/Creatinine Ratio 21.3 H (10-20) Glucose 188 H (70-99) mg/dl Lactate (0.4-2.0) mmol/L Calcium 9.9 (8.5-10.1) mg/dl Total Bilirubin 0.3 (0.2-1) mg/dl AST 11 L (15-37) U/L ALT 24 (12-78) U/L Alkaline Phosphatase 103 (45-117) U/L Troponin I < 0.015 (0-0.045) ng/ml Total Protein 7.9 (6.4-8.2) gm/dl Albumin 3.4 (3.4-5.0) gm/dl Globulin 4.5 H (2.5-4.0) gm/dl Albumin/Globulin Ratio 0.8 L (0.9-2) Carbamazepine (4-12) mcg/ml Blood Type Antibody Screen 03/25/19 03/25/19 03/25/19 Range/Units 22:52 22:52 22:52 WBC (4.8-10.8) K/uL RBC (4.7-6.1) M/uL Hgb (14.0-18.0) g/dL Hct (42-52) % MCV (80-100) fL MCH (25-34) pg MCHC (32-36) g/dL RDW Std Deviation (36.4-46.3) fL RDW Coeff of Nick (11.5-14.5) % Plt Count (130-400) K/uL MPV (7.4-10.4) fL Immature Gran % (Auto) % Neut % (Auto) % Lymph % (Auto) % Rusk % (Auto) % Eos % (Auto) % Baso % (Auto) % Immature Gran # (Auto) (0.00-0.02) K/uL Neut # (Auto) (1.4-6.5) K/uL Lymph # (Auto) (1.2-3.4) K/uL Rusk # (Auto) (0.11-0.59) K/uL Eos # (Auto) (0-0.5) K/uL Baso # (Auto) (0-0.2) K/uL PT (9.0-12.0) Seconds INR (0.9-1.1) APTT (21.0-31.0) Seconds PTT Ratio Sodium (136-145) mmol/L Potassium (3.5-5.1) mmol/L Chloride (98-107) mmol/L Carbon Dioxide (21-32) mmol/L Anion Gap (3-11) BUN (7-18) mg/dl Creatinine (0.6-1.4) mg/dl Est Cr Clr Drug Dosing Est GFR ( Amer) Est GFR (Non-Af Amer) BUN/Creatinine Ratio (10-20) Glucose (70-99) mg/dl Lactate 1.7 (0.4-2.0) mmol/L Calcium (8.5-10.1) mg/dl Total Bilirubin (0.2-1) mg/dl AST (15-37) U/L ALT (12-78) U/L Alkaline Phosphatase (45-117) U/L Troponin I Cancelled (0-0.045) ng/ml Total Protein (6.4-8.2) gm/dl Albumin (3.4-5.0) gm/dl Globulin (2.5-4.0) gm/dl Albumin/Globulin Ratio (0.9-2) Carbamazepine 6.1 (4-12) mcg/ml Blood Type Antibody Screen 03/25/19 Range/Units 23:03 WBC (4.8-10.8) K/uL RBC (4.7-6.1) M/uL Hgb (14.0-18.0) g/dL Hct (42-52) % MCV (80-100) fL MCH (25-34) pg MCHC (32-36) g/dL RDW Std Deviation (36.4-46.3) fL RDW Coeff of Nick (11.5-14.5) % Plt Count (130-400) K/uL MPV (7.4-10.4) fL Immature Gran % (Auto) % Neut % (Auto) % Lymph % (Auto) % Rusk % (Auto) % Eos % (Auto) % Baso % (Auto) % Immature Gran # (Auto) (0.00-0.02) K/uL Neut # (Auto) (1.4-6.5) K/uL Lymph # (Auto) (1.2-3.4) K/uL Rusk # (Auto) (0.11-0.59) K/uL Eos # (Auto) (0-0.5) K/uL Baso # (Auto) (0-0.2) K/uL PT (9.0-12.0) Seconds INR (0.9-1.1) APTT (21.0-31.0) Seconds PTT Ratio Sodium (136-145) mmol/L Potassium (3.5-5.1) mmol/L Chloride (98-107) mmol/L Carbon Dioxide (21-32) mmol/L Anion Gap (3-11) BUN (7-18) mg/dl Creatinine (0.6-1.4) mg/dl Est Cr Clr Drug Dosing Est GFR ( Amer) Est GFR (Non-Af Amer) BUN/Creatinine Ratio (10-20) Glucose (70-99) mg/dl Lactate (0.4-2.0) mmol/L Calcium (8.5-10.1) mg/dl Total Bilirubin (0.2-1) mg/dl AST (15-37) U/L ALT (12-78) U/L Alkaline Phosphatase (45-117) U/L Troponin I (0-0.045) ng/ml Total Protein (6.4-8.2) gm/dl Albumin (3.4-5.0) gm/dl Globulin (2.5-4.0) gm/dl Albumin/Globulin Ratio (0.9-2) Carbamazepine (4-12) mcg/ml Blood Type A Positive Antibody Screen NEGATIVE Imaging Data Attestation: I personally reviewed and interpreted this imaging study as follows: My Impression: Chest X-Ray 1 view: No infiltrate or CHF seen. ECG Data Attestation: I personally reviewed and interpreted this ECG as follows: Indication: vomiting Rate (beats per minute): 104 Rhythm: sinus tachycardia Findings: + other (poor baseline, no acute ischemic changes); no ectopy Comparison ECG Date: from (03/25/19) Change: the following changes noted (rate has decreased) Blood Pressure Blood Pressure Findings: Normal blood pressure Blood Pressure Disposition: did not require urgent referral MDM Narrative This patient comes in as described above. He was placed in room C 11. He has a history of having a significant stroke. he had a large amount of vomiting today. on exam, he is in no respiratory distress but does have rhonchorous upper airway sounds. I am concerned that he may have aspirated. He is been non- hypoxemic. Chest x-ray is clear thus far but he does have an elevated white count. Lactic acid is not elevated blood cultures are pending.he has no significant f electrolyte or metabolic abnormalities. hemoglobin is 14.3. it is possible this could have been coffee grounds otherwise no evidence suggest bleeding so far .the PEG tube looks well. He does have a rash in the lower abdomen that appears to be an abrasion. He was given IV Zosyn. I do think he should be observed/admitted as I am concerned he may have aspirated particular the elevated white count of consult the [facility] physician group to see him in the ER for these measures. Impression & Plan Aspiration into respiratory tract, Elevated white blood cell count, Vomiting, History of CVA (cerebrovascular accident) Discharge Plan Visit Data Chief Complaint: Vomiting ED Provider: Kyree King Discharge Problem: Aspiration into respiratory tract, Elevated white blood cell count, Vomiting, History of CVA (cerebrovascular accident) Forms Stand Alone Forms: My [facility] Prescriptions Prescriptions: No Action acetaminophen 650 mg Suppository 650 mg AR Q6H PRN (Reason: Pain/fever) RF: 0 atorvastatin 20 mg Tablet 20 mg Feeding Tube HS RF: 0 ipratropium-albuterol 0.5 mg-3 mg(2.5 mg base)/3 mL Solution For Nebulization 3 ml INHALATION Q6 RF: 0 citalopram 40 mg Tablet 40 mg Feeding Tube QAM RF: 0 trazodone 50 mg Tablet 25 mg Feeding Tube TID RF: 0 triamcinolone acetonide 0.5 % Cream 1 applic TOPICAL Q12 PRN (Reason: facial eczema) RF: 0 aspirin 81 mg Tablet,Delayed Release (Dr/Ec) 81 mg Feeding Tube DAILY RF: 0 guaifenesin 100 mg/5 mL Liquid 10 ml Feeding Tube Q6 RF: 0 mineral oil [Fleet Mineral Oil] Enema 118 ml AR DAILY PRN (Reason: Constipation) RF: 0 magnesium hydroxide [Milk of Magnesia] 400 mg/5 mL Suspension 30 ml feeding tube UD PRN (Reason: Constipation) RF: 0 bisacodyl [Dulcolax (bisacodyl)] 10 mg Suppository 10 mg AR DAILY PRN (Reason: Constipation) RF: 0 hyoscyamine sulfate [Levsin] 0.125 mg Tablet 0.125 mg feeding tube Q8 PRN (Reason: increased secretions) RF: 0 metformin 1,000 mg Tablet 1,000 mg Feeding Tube BIDM RF: 0 Glucagon Emergency Kit (human) 1 mg Recon Soln 1 dose IM UD PRN (Reason: Hypoglycemia) RF: 0 budesonide 0.5 mg/2 mL Suspension For Nebulization 0.5 mg INHALATION Q8 RF: 0 carbamazepine 100 mg/5 mL Suspension 100 mg Feeding Tube HS RF: 0 Lactobacillus acidophilus Capsule 1 cap Feeding Tube TID RF: 0 levetiracetam 100 mg/mL Solution 10 ml Feeding Tube BID RF: 0 acetaminophen 325 mg Capsule 650 mg Feeding Tube Q8 PRN (Reason: Pain) RF: 0 carbamazepine 200 mg/10 mL Suspension 400 mg Feeding Tube BID RF: 0 Xarelto 20 mg Tablet 20 mg G-Tube HS RF: 0 Enteral Feed 1 dose PEG 5XD RF: 0 insulin glargine 100 unit/mL (3 mL) Insulin Pen 15 unit SUBCUT HS RF: 0 silver sulfadiazine 1 % Cream 1 applic TOPICAL BID RF: 0 The scribe's documentation has been prepared under my direction and personally reviewed by me in its entirety. I confirm that the note above accurately reflects all work, treatment, procedures, and medical decision making performed by me.
--- NOTE | 2019-03-26 03:28 | History & Physical Report ---
Date of Service March 26, 2019 Assessment & Plan (1) Aspiration into respiratory tract: Possible aspiration event. Patient afebrile, hemodynamically stable, no respiratory distress, adequate oxygenation on 3L NC -Check Procalcitonin -Zosyn empirically -Check CXR in AM -Tylenol PRN fever Present on Admission?: Yes (2) Elevated white blood cell count: ?Aspiration event as source of leukocytosis. ?Skin as possible souce as well although does not appear infected -Empiric Zosyn as above -CXR in AM -Check UA -CBC in AM Present on Admission?: Yes (3) Vomiting: Patient with episode of vomiting, brown material. 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 No cough, wheeze at present -Supplemental O2 as needed -Continue Budesonide -Continue Guaifenesin -Continue DuoNeb Present on Admission?: Yes (6) Diabetes: Chronic. Blood sugar 188 at present -Hold Metformin -Lantus 15u qHS -ISS (7) HLD (hyperlipidemia): Chronic -Continue Atorvatatin Present on Admission?: Yes (8) CKD (chronic kidney disease): BUN and Cr near baseline -Monitor UOP, electrolytes, BUN and Cr Present on Admission?: Yes (9) GERD (gastroesophageal reflux disease): Chronic, stable -Pepcid IV daily Present on Admission?: Yes (10) Epilepsy: No seizures -Continue Carbamazepine Present on Admission?: Yes (11) Hypertension: Blood pressure stable F/E/N - Heplock. Electroltys WNL, continue to monitor, TF Ppx - SCDs, Pepcid, Wound care BID Code DNR per review of paperwork Dispo - Admit to medical floor History of Present Illness Chief Complaint: ?Aspiration, ?Coffee ground emesis Primary Care Provider: [facility] "Lisa Bergman is a 63yo c male with history of prior CVA resulting in severe functional deficit -aphasia, hemiplegia and hemiparesis. Patient resides at [facility] and is full assist, PEG tube in place. By report patient had an episode of vomiting earlier today - large volume of thick, brown emesis, ? if coffee ground material. No hematemesis reported. Also with possible aspiration event. On arrival to the ER he is afebrile, hemodynamically stable, no respiratory distress, adequate oxygenation on 3L NC ER Course: Zosyn Allergies Allergy/AdvReac Type Severity Reaction Status Date / Time bee venom protein (honey bee) Allergy Unknown LISTED ON Verified 03/25/19 22:43 MAR pseudoephedrine Allergy Unknown UNKNOWN Verified 03/25/19 22:43 Home Medications Home Medications Medication Instructions Recorded Confirmed Type Enteral Feed 1 dose PEG 5XD 11/01/18 03/25/19 History Glucagon Emergency Kit (human) 1 dose IM UD PRN 11/01/18 03/25/19 History Lactobacillus acidophilus 1 cap FEEDING TUBE TID 11/01/18 03/25/19 History Xarelto 20 mg G-TUBE HS 11/01/18 03/25/19 History acetaminophen 650 mg FEEDING TUBE Q8 PRN 11/01/18 03/25/19 History acetaminophen 650 mg MT Q6H PRN 11/01/18 03/25/19 History aspirin 81 mg FEEDING TUBE DAILY 11/01/18 03/25/19 History atorvastatin 20 mg FEEDING TUBE HS 11/01/18 03/25/19 History bisacodyl [Dulcolax (bisacodyl)] 10 mg MT DAILY PRN 11/01/18 03/25/19 History budesonide 0.5 mg INHALATION Q8 11/01/18 03/25/19 History carbamazepine 100 mg FEEDING TUBE HS 11/01/18 03/25/19 History carbamazepine 400 mg FEEDING TUBE BID 11/01/18 03/25/19 History citalopram 40 mg FEEDING TUBE QAM 11/01/18 03/25/19 History guaifenesin 10 ml FEEDING TUBE Q6 11/01/18 03/25/19 History hyoscyamine sulfate [Levsin] 0.125 mg FEEDING TUBE Q8 PRN 11/01/18 03/25/19 History ipratropium-albuterol 3 ml INHALATION Q6 11/01/18 03/25/19 History levetiracetam 10 ml FEEDING TUBE BID 11/01/18 03/25/19 History magnesium hydroxide [Milk of 30 ml FEEDING TUBE UD PRN 11/01/18 03/25/19 History Magnesia] metformin 1,000 mg FEEDING TUBE BIDM 11/01/18 03/25/19 History mineral oil [Fleet Mineral Oil] 118 ml MT DAILY PRN 11/01/18 03/25/19 History trazodone 25 mg FEEDING TUBE TID 11/01/18 03/25/19 History triamcinolone acetonide 1 applic TOPICAL Q12 PRN 11/01/18 03/25/19 History insulin glargine 15 unit SUBCUT HS 11/29/18 03/25/19 History silver sulfadiazine 1 applic TOPICAL BID 03/25/19 03/25/19 History Past Med/Surg History Medical History History of CVA (cerebrovascular accident) 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 COPD (chronic obstructive pulmonary disease) Diabetes type 2 HLD (hyperlipidemia) PVD (peripheral vascular disease) CKD (chronic kidney disease) stage 2 Aspiration pneumonia DVT (deep venous thrombosis) Pneumonia (Acute) Aphasia Asthma Conversion disorder with seizures or convulsions Difficulty in walking Epilepsy with status epilepticus GERD (gastroesophageal reflux disease) Gastrostomy infection Generalized muscle weakness 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 History of venous thrombosis and embolism Hypertension Pressure ulcer of right buttock, stage 2 Tinea unguium Unspecified mood [affective] disorder Surgical History Status post insertion of percutaneous endoscopic gastrostomy (PEG) tube Surgical history unknown Social History Preferred Language: Tuvaluan Communication Ability: Impaired Beliefs That Will Affect Care: None Current Living Situation: [facility] Feels Safe at Home: Yes Smoking Status: Unknown if ever smoked Review of Systems Review of Systems: Unobtainable due to mental health condition Physical Exam Physical Exam: General: patient resting comfortably, NAD Skin: warm, dry, rash on abdominal wall - appears to be a well healing rash with granulation tissue, no evidence of bleeding or secondary infection HEENT: NC/AT, PERRL, anicteric sclera, conjunctiva without injection, external ear normal to inspection and nontender, nares patent, moist mucus membranes, neck supple, trachea midline, no LAD, no thyromegaly, no JVD Heart: +S1/S2, regular, no m/r/g Lungs: equal air entry bilaterally, crackles in bilateral bases Abd: +BS, soft, NT/ND, no masses/organomegaly/ascites, PEG in place - aspirated clear fluid from PEG tube. No blood, no coffee ground material Ext: warm, 2+ pulses in UE/LE bilaterally, no clubbing/cyanosis or edema Neuro: aphasia, patient follows some commands, hemiplegia Results & Data Vital Signs (Past 12 Hours) Vital Signs Temp Pulse Resp BP Pulse Ox 03/26/19 01:30 94 H 18 122/77 96 03/26/19 01:00 95 H 14 127/91 97 03/26/19 00:30 99 H 22 122/91 96 03/26/19 00:00 96 H 20 134/88 97 03/25/19 23:30 103 H 18 120/79 96 03/25/19 23:02 103 H 19 113/74 95 03/25/19 23:00 106 H 22 95 03/25/19 22:55 96 03/25/19 22:36 37.8 C H 104 H 22 120/82 95 03/25/19 22:32 107 H 18 95 03/25/19 22:25 105 H 23 120/82 93 Laboratory Results Lab Results 03/25/19 03/25/19 03/25/19 Range/Units 22:52 22:52 22:52 WBC 17.14 H (4.8-10.8) K/uL RBC 4.54 L (4.7-6.1) M/uL Hgb 14.3 (14.0-18.0) g/dL Hct 43.4 (42-52) % MCV 95.6 (80-100) fL MCH 31.5 (25-34) pg MCHC 32.9 (32-36) g/dL RDW Std Deviation 49.6 H (36.4-46.3) fL RDW Coeff of Nick 14.2 (11.5-14.5) % Plt Count 283 (130-400) K/uL MPV 10.1 (7.4-10.4) fL Immature Gran % (Auto) 0.2 % Neut % (Auto) 88.8 % Lymph % (Auto) 3.6 % [place] % (Auto) 7.1 % Eos % (Auto) 0.1 % Baso % (Auto) 0.2 % Immature Gran # (Auto) 0.04 H (0.00-0.02) K/uL Neut # (Auto) 15.23 H (1.4-6.5) K/uL Lymph # (Auto) 0.62 L (1.2-3.4) K/uL [place] # (Auto) 1.21 H (0.11-0.59) K/uL Eos # (Auto) 0.01 (0-0.5) K/uL Baso # (Auto) 0.03 (0-0.2) K/uL PT 10.2 (9.0-12.0) Seconds INR 1.0 (0.9-1.1) APTT 24.5 (21.0-31.0) Seconds PTT Ratio 0.9 Sodium 140 (136-145) mmol/L Potassium 4.4 (3.5-5.1) mmol/L Chloride 102 (98-107) mmol/L Carbon Dioxide 32 (21-32) mmol/L Anion Gap 6.0 (3-11) BUN 16 (7-18) mg/dl Creatinine 0.75 (0.6-1.4) mg/dl Est Cr Clr Drug Dosing Not Reportable Est GFR ( Amer) 114.8 Est GFR (Non-Af Amer) 99.0 BUN/Creatinine Ratio 21.3 H (10-20) Glucose 188 H (70-99) mg/dl Lactate (0.4-2.0) mmol/L Calcium 9.9 (8.5-10.1) mg/dl Total Bilirubin 0.3 (0.2-1) mg/dl AST 11 L (15-37) U/L ALT 24 (12-78) U/L Alkaline Phosphatase 103 (45-117) U/L Troponin I < 0.015 (0-0.045) ng/ml Total Protein 7.9 (6.4-8.2) gm/dl Albumin 3.4 (3.4-5.0) gm/dl Globulin 4.5 H (2.5-4.0) gm/dl Albumin/Globulin Ratio 0.8 L (0.9-2) Carbamazepine (4-12) mcg/ml Blood Type Antibody Screen 03/25/19 03/25/19 03/25/19 Range/Units 22:52 22:52 22:52 WBC (4.8-10.8) K/uL RBC (4.7-6.1) M/uL Hgb (14.0-18.0) g/dL Hct (42-52) % MCV (80-100) fL MCH (25-34) pg MCHC (32-36) g/dL RDW Std Deviation (36.4-46.3) fL RDW Coeff of Nick (11.5-14.5) % Plt Count (130-400) K/uL MPV (7.4-10.4) fL Immature Gran % (Auto) % Neut % (Auto) % Lymph % (Auto) % [place] % (Auto) % Eos % (Auto) % Baso % (Auto) % Immature Gran # (Auto) (0.00-0.02) K/uL Neut # (Auto) (1.4-6.5) K/uL Lymph # (Auto) (1.2-3.4) K/uL [place] # (Auto) (0.11-0.59) K/uL Eos # (Auto) (0-0.5) K/uL Baso # (Auto) (0-0.2) K/uL PT (9.0-12.0) Seconds INR (0.9-1.1) APTT (21.0-31.0) Seconds PTT Ratio Sodium (136-145) mmol/L Potassium (3.5-5.1) mmol/L Chloride (98-107) mmol/L Carbon Dioxide (21-32) mmol/L Anion Gap (3-11) BUN (7-18) mg/dl Creatinine (0.6-1.4) mg/dl Est Cr Clr Drug Dosing Est GFR ( Amer) Est GFR (Non-Af Amer) BUN/Creatinine Ratio (10-20) Glucose (70-99) mg/dl Lactate 1.7 (0.4-2.0) mmol/L Calcium (8.5-10.1) mg/dl Total Bilirubin (0.2-1) mg/dl AST (15-37) U/L ALT (12-78) U/L Alkaline Phosphatase (45-117) U/L Troponin I Cancelled (0-0.045) ng/ml Total Protein (6.4-8.2) gm/dl Albumin (3.4-5.0) gm/dl Globulin (2.5-4.0) gm/dl Albumin/Globulin Ratio (0.9-2) Carbamazepine 6.1 (4-12) mcg/ml Blood Type Antibody Screen 03/25/19 Range/Units 23:03 WBC (4.8-10.8) K/uL RBC (4.7-6.1) M/uL Hgb (14.0-18.0) g/dL Hct (42-52) % MCV (80-100) fL MCH (25-34) pg MCHC (32-36) g/dL RDW Std Deviation (36.4-46.3) fL RDW Coeff of Nick (11.5-14.5) % Plt Count (130-400) K/uL MPV (7.4-10.4) fL Immature Gran % (Auto) % Neut % (Auto) % Lymph % (Auto) % [place] % (Auto) % Eos % (Auto) % Baso % (Auto) % Immature Gran # (Auto) (0.00-0.02) K/uL Neut # (Auto) (1.4-6.5) K/uL Lymph # (Auto) (1.2-3.4) K/uL [place] # (Auto) (0.11-0.59) K/uL Eos # (Auto) (0-0.5) K/uL Baso # (Auto) (0-0.2) K/uL PT (9.0-12.0) Seconds INR (0.9-1.1) APTT (21.0-31.0) Seconds PTT Ratio Sodium (136-145) mmol/L Potassium (3.5-5.1) mmol/L Chloride (98-107) mmol/L Carbon Dioxide (21-32) mmol/L Anion Gap (3-11) BUN (7-18) mg/dl Creatinine (0.6-1.4) mg/dl Est Cr Clr Drug Dosing Est GFR ( Amer) Est GFR (Non-Af Amer) BUN/Creatinine Ratio (10-20) Glucose (70-99) mg/dl Lactate (0.4-2.0) mmol/L Calcium (8.5-10.1) mg/dl Total Bilirubin (0.2-1) mg/dl AST (15-37) U/L ALT (12-78) U/L Alkaline Phosphatase (45-117) U/L Troponin I (0-0.045) ng/ml Total Protein (6.4-8.2) gm/dl Albumin (3.4-5.0) gm/dl Globulin (2.5-4.0) gm/dl Albumin/Globulin Ratio (0.9-2) Carbamazepine (4-12) mcg/ml Blood Type A Positive Antibody Screen NEGATIVE Diagnostic Findings No focal infilatrate, CHF or PTX ECG Additional Comments: Sinus tachycardia at 104bpm, normal axis and intervals, no acute ischemic changes Code Status & VTE Plan Code Status DNR per review of paperwork VTE Prophylaxis Plan VTE Prophylaxis will be ordered: Yes (1) Aspiration into respiratory tract Encounter type: initial encounter Qualified Code(s): T17.908A - Unspecified foreign body in respiratory tract, part unspecified causing other injury, initial encounter (2) Elevated white blood cell count Leukocytosis type: unspecified Qualified Code(s): D72.829 - Elevated white blood cell count, unspecified (3) Vomiting Nausea presence: unspecified Vomiting Intractability: non-intractable Vomiting type: unspecified Qualified Code(s): R11.10 - Vomiting, unspecified (4) COPD (chronic obstructive pulmonary disease) COPD type: unspecified COPD Qualified Code(s): J44.9 - Chronic obstructive pulmonary disease, unspecified (5) Diabetes Diabetes mellitus type: type 2 Diabetes mellitus usp insulin use: with buttermaker use Diabetes mellitus complication status: without complication Qualified Code(s): E11.9 - Type 2 diabetes mellitus without complications; 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 (6) HLD (hyperlipidemia) Hyperlipidemia type: unspecified Qualified Code(s): E78.5 - Hyperlipidemia, unspecified (7) CKD (chronic kidney disease) Chronic kidney disease stage: unspecified stage Qualified Code(s): N18.9 - Chronic kidney disease, unspecified (8) GERD (gastroesophageal reflux disease) Esophagitis presence: esophagitis presence not specified Qualified Code(s): K21.9 - Gastro-esophageal reflux disease without esophagitis (9) Epilepsy Epilepsy type: unspecified Intractability: not intractable Status epilepticus: without status epilepticus Qualified Code(s): G40.909 - Epilepsy, unspecified, not intractable, without status epilepticus (10) Hypertension Hypertension type: essential hypertension Qualified Code(s): I10 - Essential (primary) hypertension
[2019-03-26] MEDS ORDERED: GLUCAGON FOR INJ 1 MG VIAL SQ PRN (04:16)
[2019-03-26] MEDS ORDERED: ACETAMINOPHEN 650 MG SUPP PR PRN (04:16)
[2019-03-26] MEDS ORDERED: DEXTROSE 50% 50 ML SYRINGE IV PRN (04:16)
[2019-03-26] MEDS ORDERED: CARBOHYDRATES FOR HYPOGLYCEMIA PO PRN (04:16)
[2019-03-26] MEDS ORDERED: MAGNESIUM HYDROXIDE SUSP 30 ML UDC GT PRN (04:16)
[2019-03-26] MEDS ORDERED: ONDANSETRON INJ 2 MG/ML 2 ML VIAL IV PRN (04:16)
[2019-03-26] MEDS ORDERED: HYOSCYAMINE SULFATE 0.125 MG TAB PO PRN (04:16)
[2019-03-26] MEDS ORDERED: BISACODYL 10 MG SUPP PR PRN (04:16)
[2019-03-26] MEDS ORDERED: MINERAL OIL ENEMA 133 ML BTL PR PRN (04:16)
[2019-03-26] MEDS ORDERED: GLUCOSE 40% GEL 15 GM TUBE PO PRN (04:16)
[2019-03-26] MEDS ORDERED: TRIAMCINOLONE ACET 0.5% CR 15 GM TUBE TOP PRN (04:16)
[2019-03-26] MEDS ORDERED: GLUCOSE 10 TABS/TUBE PO PRN (04:16)
[2019-03-26 05:28] LABS: Phosphorus 3.3 mg/dl (2.5-4.9)
[2019-03-26] MEDS: guaiFENesin SUGAR FREE 100 MG/5 ML UDC GT SCH ×3 (06:08→18:00)
[2019-03-26] MEDS: PIPERACILLIN/TAZOBACTAM 3.375 GM in DEXTROSE 5% 100 ML IV SCH ×3 (06:09→22:11)
[2019-03-26] MEDS: INSULIN ASPART 100 UNITS/ML 3 ML PEN SC SCH ×3 (06:09→18:00)
--- NOTE | 2019-03-26 06:12 | XRay Report ---
XR chest 1V portable HISTORY: 63 years-old Male Sepsis acute sepsis COMPARISON: Chest radiograph 01/23/2019, chest radiograph 11/28/2017, CTA chest 11/25/2017 TECHNIQUE: Portable AP view of the chest FINDINGS: Cardiomediastinal and hilar silhouettes are within normal limits. There is no pneumothorax, pleural e ffusion, focal airspace consolidation or overt pulmonary edema. Mild chronic blunting of the costophr enic angles. Bones of the chest appear grossly intact. Nodular opacity of the right lung apex likely correlates with osteophytic spurring about the right first rib is unchanged. IMPRESSION: No acute process. The above report was generated using voice recognition software. It may contain grammatical, syntax o r spelling errors. Electronically signed by: Carloz Saldivar M.D. 03/26/2019 6:11 AM
[2019-03-26] MEDS: ALBUT/IPRATROP 3MG/0.5MG NEB 3 ML VIAL INH SCH ×3 (07:03→19:40)
[2019-03-26] MEDS: BUDESONIDE 0.5 MG/2 ML VIAL (PULMICORT) INH SCH ×3 (07:03→23:04)
[2019-03-26] MEDS: TRAZODONE HCL 50 MG TAB GT SCH ×3 (08:18→20:07)
[2019-03-26] MEDS: CITALOPRAM 40 MG TAB GT SCH (08:19)
[2019-03-26] MEDS: levETIRAcetam ORAL SOLN 100MG/ML GT SCH ×2 (08:21→20:05)
[2019-03-26] MEDS: CARBAMAZEPINE 100 MG CHEW TAB PO SCH ×3 (08:35→20:09)
[2019-03-26] MEDS: FAMOTIDINE 20 MG in SYRINGE 3 ML IV SCH (08:36)
[2019-03-26] MEDS: SILVER SULFADIAZINE 1% CR 50 GM JAR TOP SCH ×2 (08:49→20:04)
[2019-03-26] MEDS ORDERED: LACTOBACILLUS ACIDOPHILUS Feeding Tube SCH (09:00)
[2019-03-26] MEDS ORDERED: [UNRECOGNIZED DRUG - OTHER] PEG SCH (09:00)
[2019-03-26] MEDS: SODIUM CHLORIDE 0.45 % 1,000 ML IV SCH (14:25)
[2019-03-26] MEDS: ATORVASTATIN 20 MG TAB GT SCH (20:06)
[2019-03-26] MEDS: INSULIN GLARGINE SOLOSTAR 100 UNITS/ML 3 ML PEN SQ SCH (20:10)
--- NOTE | 2019-03-26 23:54 | History & Physical Bridge Note ---
Date of Service March 26, 2019 History & Physical Bridge Note I have examined the patient, reviewed the History & Physical and in the interval since the performance of the History & Physical I have noted the following changes of clinical significance: Patient stable since admission, no further episodes of vomiting. He is not able to communicate with me when I saw him in the room but he does appear comfortable. Lungs with expiratory wheezes bilaterally I placed his tube feeds on hold and also we do not have his specific type of tube feed once it's to be restarted. -Start half-normal saline at 80 mL's per hour for hydration while tube feeds on hold for large amount of vomiting -Continue Zosyn for empiric coverage for aspiration pneumonia although no infiltrate on x-ray, remains afebrile, and procalcitonin is negative-could likely stop antibiotics tomorrow if remains stable -Agree with topical Silvadene for wound on abdomen and left groin which I believe is a friction rub from his G-tube -Advised nursing to put padding under and around the G-tube ports to prevent friction rub on abdomen
[2019-03-27] MEDS: guaiFENesin SUGAR FREE 100 MG/5 ML UDC GT SCH ×4 (00:19→17:54)
[2019-03-27] MEDS: INSULIN ASPART 100 UNITS/ML 3 ML PEN SC SCH ×4 (00:38→18:47)
[2019-03-27] MEDS: ALBUT/IPRATROP 3MG/0.5MG NEB 3 ML VIAL INH SCH ×4 (01:54→19:23)
[2019-03-27] MEDS: SODIUM CHLORIDE 0.45 % 1,000 ML IV SCH ×2 (02:21→14:24)
[2019-03-27] MEDS: PIPERACILLIN/TAZOBACTAM 3.375 GM in DEXTROSE 5% 100 ML IV SCH ×3 (05:49→21:46)
[2019-03-27] MEDS: BUDESONIDE 0.5 MG/2 ML VIAL (PULMICORT) INH SCH ×3 (07:07→19:23)
[2019-03-27 07:33] LABS: Basophils # (auto) 0.03 K/uL (0-0.2); Basophils % (auto) 0.4 %; Eosinophils # (auto) 0.31 K/uL (0-0.5); Eosinophils % (auto) 3.7 %; Hematocrit (blood only) 40.8 % (42-52); Hemoglobin 13.5 g/dL (14.0-18.0); Immature Granulocytes # (auto) 0.02 K/uL (0.00-0.02); Immature Granulocytes % (auto) 0.2 %; Lymphocytes # (auto) 1.89 K/uL (1.2-3.4); Lymphocytes % (auto) 22.4 %; Mean Corpuscular Hgb Conc 33.1 g/dL (32-36); Mean Corpuscular Volume 95.1 fL (80-100); Mean Platelet Volume 10.4 fL (7.4-10.4); Monocytes # (auto) 0.77 K/uL (0.11-0.59); Monocytes % (auto) 9.1 %; Neutrophils # (auto) 5.42 K/uL (1.4-6.5); Neutrophils % (auto) 64.2 %; Platelet Count 245 K/uL (130-400); RDW Coefficient of Variation 14.3 % (11.5-14.5); RDW Standard Deviation 49.2 fL (36.4-46.3); Red Blood Count 4.29 M/uL (4.7-6.1); White Blood Count 8.44 K/uL (4.8-10.8)
[2019-03-27 08:12] LABS: BUN Creatinine Ratio 19.4 (10-20); Calcium 9.2 mg/dl (8.5-10.1); Creatinine Clr Calc Pharmacy 125.3 ml/min; Est GFR (African American) 116.7; Est GFR (Non-African American) 100.7; Potassium 3.6 mmol/L (3.5-5.1)
[2019-03-27] MEDS: CARBAMAZEPINE 100 MG CHEW TAB PO SCH ×3 (09:10→20:46)
[2019-03-27] MEDS: levETIRAcetam ORAL SOLN 100MG/ML GT SCH ×2 (09:10→20:44)
[2019-03-27] MEDS: TRAZODONE HCL 50 MG TAB GT SCH ×3 (09:10→20:44)
[2019-03-27] MEDS: SILVER SULFADIAZINE 1% CR 50 GM JAR TOP SCH ×2 (09:11→20:44)
[2019-03-27] MEDS: CITALOPRAM 40 MG TAB GT SCH (09:11)
[2019-03-27] MEDS: FAMOTIDINE 20 MG in SYRINGE 3 ML IV SCH (09:11)
--- NOTE | 2019-03-27 14:27 | XRay Report ---
XR chest 1V portable CLINICAL HISTORY: F/U Aspiration COMPARISON STUDY: Chest radiograph April 04, 2019. FINDINGS: There are old healed right rib fractures. There is a trace right pleural effusion. There is no consolidation to suggest pneumonia. Pulmonary vascularity is normal. Cardiac size is normal. Medi astinal contours are normal. Patient is rotated. IMPRESSION: 1. No consolidation to suggest pneumonia. 2. Suspected trace right pleural effusion. Electronically signed by: Ulysses Barron M.D. 03/27/2019 2:26 PM
[2019-03-27] MEDS ORDERED: IOVERSOL 100ml IV PRN (15:18)
--- NOTE | 2019-03-27 15:46 | CT Scan Report ---
ABDOMEN AND PELVIS CT WITH IV CONTRAST CT DOSE: 1104.03 mGycm HISTORY: Acute vomiting with abdominal distention Abdominal distended; Vomiting; Peg tube placement TECHNIQUE: Multiaxial CT images of the abdomen and pelvis were performed following the use of intrave nous contrast. A dose lowering technique was utilized adhering to the principles of ALARA. COMPARISON STUDY: CTA chest 11/25/2017, acute abdominal series radiographs 11/29/2018. FINDINGS: Limited exam secondary to positioning of the upper extremities. Respiratory motion artifact limits ev aluation of the lung bases. Minimal subsegmental right greater than left bibasilar atelectasis. Minim al tree-in-bud nodules of the basal right lower lobe are suggestive of an infectious or inflammatory bronchiolitis. 7 mm pleural-based solid nodule adjacent to the right lower lobe is likely unchanged. There is no pneumatosis or pneumoperitoneum. Study is mildly motion degraded. Imaged inferior cardiac chambers appear unremarkable. Trace pericardial effusion. Gallbladder, liver, spleen, pancreas and left adrenal gland appear unremarkable. There is a 1.4 x 1.1 cm soft tissue attenuating lesion of the right adrenal gland, previously demonstrating characteristi cs compatible with an adenoma on comparison study. Absent left kidney. Right kidney appears normal. N o renal or ureteral calculi or obstructive uropathy. Mild prostamegaly. Mild wall thickening of the b ladder suggests chronic bladder outlet obstruction. Small fat filled right inguinal hernia. Moderate calcified plaque of the abdominal aorta without aneurysm. No adenopathy. Mild wall thickening of the distal esophagus. PEG tube noted about the mid gastric lumen appearing to be in satisfactory positioning. Mild wall thickening of the gastric antrum may be secondary to parti al distention. No small bowel obstruction or bowel wall thickening. Mild to moderate volume of formed stool is noted throughout the colon, notably within the rectosigmoid. Terminal ileum and appendix ap pear unremarkable. No ascites or mesenteric inflammation. Soft tissues are unremarkable. Degenerative changes of the spine, pelvis and hips. No acute fracture identified. IMPRESSION: 1. Motion degraded exam. 2. No bowel obstruction or focal bowel wall thickening. Normal appendix. 3. Satisfactory positioning of the PEG tube. 4. Minimal subsegmental tree-in-bud nodules of the basal right lower lobe are suggestive of a mild in fectious or inflammatory bronchiolitis. 5. Additional findings as above. Electronically signed by: Carloz Saldivar M.D. 03/27/2019 3:44 PM
[2019-03-27] MEDS ORDERED: BISACODYL 10 MG SUPP PR STA (16:27)
--- NOTE | 2019-03-27 16:29 | Hospitalist Progress Note ---
Date of Service March 27, 2019 Assessment & Plan (1) Aspiration into respiratory tract: - Did have an episode of vomiting - leukocytosis is resolved, remains on RA, no signs of respiratory distress however with audible wheezing and likely doesn't handle secretions adequately - did have this patient previous admission which was documented that he would have a lot of gurgling during each visit - CXR without an acute process - on CT Abd/Pelvis the bottom lung vasquez show a tree-in-bud appearance and could be an aspiration component but procalcitonin is negative - Will continue Zosyn therapy at this time - could be more of an inflammatory process/pneumonitis - will give a low dose steroid to monitor for improvement in respiratory status Present on Admission?: Yes (2) Elevated white blood cell count: - Aspiration vs Skin (Abdomen) however skin seems hardened and no drainage and likely from PEG irritation - Treatment as above - WBC now resolved Present on Admission?: Yes (3) Vomiting: - Episode of vomiting prior to admission - no further episodes - there was concern for bleeding/coffee ground however Hgb is staying stable and likely not the cause - Continue Pepcid IV daily; Hold ASA and Xarelto today and if Hgb remains stable will resume tomorrow - Holding tube feeds currently - possibly the vomiting could be from increased residual? -- Did perform a CT Abd/Pelvis due to distension/hardening of R side abdomen - no evidence of SBO but significant constipation so maybe cause of distension - If no further vomiting likely can resume tube feeds tomorrow Present on Admission?: Yes (4) Dysphasia as late effect of cerebrovascular accident (CVA): - Significant residual deficits from his prior CVA; maintain aspiration precautions - ASA on hold currently due to above and likely resumed tomorrow; Continue Atorvastatin 20 mg daily Present on Admission?: Yes (5) COPD (chronic obstructive pulmonary disease): - Mild exacerbation vs results of aspiration - Remains on RA and appears to be comfortable but has audible wheezing - Nebs, Mucinex and adding Prednisone 20 mg daily Present on Admission?: Yes (6) Diabetes: - STABLE - Hold Metformin and cover with SSI; will hold Lantus given no tube feeds currently and likely can add basal insulin on tomorrow with feeds Present on Admission?: Yes (7) HLD (hyperlipidemia): - STABLE - Continue Atorvastatin Present on Admission?: Yes (8) CKD (chronic kidney disease): - STABLE - Continue to monitor Present on Admission?: Yes (9) GERD (gastroesophageal reflux disease): - STABLE/Chronic - Pepcid IV daily (10) Epilepsy: - No seizures - Continue Carbamazepine 400 mg BID and 100 mg HS Present on Admission?: Yes (11) DVT prophylaxis: - SCDs; likely can resume chemical means tomorrow pending labs Disposition: Resident of [facility]; updated sister over the phone Subjective Patient is significantly aphasic but appears comfortable. Is mumbling words even when noone in the room. Does turn to face you when speaking to him. He has audible wheezing which upon review of previous notes he would have a lot of gurgling with secretions. Tube feeds remain on hold at this time Review of Systems Review of Systems: Unobtainable due to cognitive status (significant CVA/aphasia) Physical Exam Constitutional: well developed and well nourished; no acute distress Eyes: + anicteric sclerae strabismus of R eye Neck: trachea midline Respiratory: no respiratory distress Auscultation: + wheezes Cardiovascular: RRR, no murmur, no edema Gastrointestinal (Abdomen): Inspection/Auscultation: + abdomen distended and normal bowel sounds Percussion/Palpation: abdomen soft (L side) and + abdomen firm (R sided); abdomen nontender and no guarding + peg tube with dressing applied in epigastric region Musculoskeletal: Head/Neck/Chest: normocephalic and head atraumatic Skin: + ulcer (on lower abdomen, hardened, dried, yellowed) Neurologic: Speech / Cognition: + abnormal speech Psychiatric: Orientation: alert Motor Behavior: + psychomotor agitation Affect: + flat affect Results & Data Vital Signs (Past 12 Hours) Vital Signs Temp Pulse Resp BP Pulse Ox 03/27/19 07:23 36.8 C 77 18 127/83 91 (1) Aspiration into respiratory tract Encounter type: initial encounter Qualified Code(s): T17.908A - Unspecified foreign body in respiratory tract, part unspecified causing other injury, initial encounter (2) Elevated white blood cell count Leukocytosis type: unspecified Qualified Code(s): D72.829 - Elevated white blood cell count, unspecified (3) Vomiting Nausea presence: unspecified Vomiting Intractability: non-intractable Vomiting type: unspecified Qualified Code(s): R11.10 - Vomiting, unspecified (4) COPD (chronic obstructive pulmonary disease) COPD type: unspecified COPD Qualified Code(s): J44.9 - Chronic obstructive pulmonary disease, unspecified (5) Diabetes Diabetes mellitus type: type 2 Diabetes mellitus termination clerk insulin use: with jail use Diabetes mellitus complication status: without complication Qualified Code(s): E11.9 - Type 2 diabetes mellitus without complications; Z79.4 - [facility] (current) use of insulin (6) HLD (hyperlipidemia) Hyperlipidemia type: unspecified Qualified Code(s): E78.5 - Hyperlipidemia, unspecified (7) CKD (chronic kidney disease) Chronic kidney disease stage: unspecified stage Qualified Code(s): N18.9 - Chronic kidney disease, unspecified (8) GERD (gastroesophageal reflux disease) Esophagitis presence: esophagitis presence not specified Qualified Code(s): K21.9 - Gastro-esophageal reflux disease without esophagitis (9) Epilepsy Epilepsy type: unspecified Intractability: not intractable Status epilepticus: without status epilepticus Qualified Code(s): G40.909 - Epilepsy, unspecified, not intractable, without status epilepticus
[2019-03-27 17:44] LABS: Basophils # (auto) 0.03 K/uL (0-0.2); Basophils % (auto) 0.3 %; Eosinophils # (auto) 0.46 K/uL (0-0.5); Eosinophils % (auto) 4.8 %; Hematocrit (blood only) 38.8 % (42-52); Hemoglobin 12.9 g/dL (14.0-18.0); Immature Granulocytes # (auto) 0.02 K/uL (0.00-0.02); Immature Granulocytes % (auto) 0.2 %; Lymphocytes # (auto) 1.88 K/uL (1.2-3.4); Lymphocytes % (auto) 19.6 %; Mean Corpuscular Hgb Conc 33.2 g/dL (32-36); Mean Corpuscular Volume 95.1 fL (80-100); Mean Platelet Volume 10.2 fL (7.4-10.4); Monocytes # (auto) 1.06 K/uL (0.11-0.59); Monocytes % (auto) 11.1 %; Neutrophils # (auto) 6.13 K/uL (1.4-6.5); Platelet Count 265 K/uL (130-400); RDW Coefficient of Variation 14.1 % (11.5-14.5); RDW Standard Deviation 48.7 fL (36.4-46.3); Red Blood Count 4.08 M/uL (4.7-6.1); White Blood Count 9.58 K/uL (4.8-10.8)
[2019-03-27] MEDS: ATORVASTATIN 20 MG TAB GT SCH (20:44)
[2019-03-28] MEDS: guaiFENesin SUGAR FREE 100 MG/5 ML UDC GT SCH ×5 (00:08→18:36)
[2019-03-28] MEDS: INSULIN ASPART 100 UNITS/ML 3 ML PEN SC SCH ×4 (00:26→18:21)
[2019-03-28] MEDS: ALBUT/IPRATROP 3MG/0.5MG NEB 3 ML VIAL INH SCH ×4 (02:38→19:45)
[2019-03-28] MEDS: SODIUM CHLORIDE 0.45 % 1,000 ML IV SCH (03:02)
[2019-03-28] MEDS: PIPERACILLIN/TAZOBACTAM 3.375 GM in DEXTROSE 5% 100 ML IV SCH ×3 (05:23→22:10)
[2019-03-28] MEDS: BUDESONIDE 0.5 MG/2 ML VIAL (PULMICORT) INH SCH ×3 (07:09→23:29)
[2019-03-28 07:23] LABS: Creatinine Clr Calc Pharmacy 143.2 ml/min; Est GFR (African American) 123.3; Est GFR (Non-African American) 106.4
[2019-03-28] MEDS: CITALOPRAM 40 MG TAB GT SCH (08:29)
[2019-03-28] MEDS: TRAZODONE HCL 50 MG TAB GT SCH ×3 (08:30→21:37)
[2019-03-28] MEDS: levETIRAcetam ORAL SOLN 100MG/ML GT SCH ×2 (08:31→21:37)
[2019-03-28] MEDS: CARBAMAZEPINE 100 MG CHEW TAB PO SCH ×3 (08:32→21:37)
[2019-03-28] MEDS: SILVER SULFADIAZINE 1% CR 50 GM JAR TOP SCH (08:37)
[2019-03-28] MEDS: predniSONE 20 MG TAB PO SCH (08:59)
[2019-03-28 09:02] LABS: Hematocrit (blood only) 39.6 % (42-52); Hemoglobin 13.3 g/dL (14.0-18.0)
[2019-03-28] MEDS: FAMOTIDINE 20 MG in SYRINGE 3 ML IV SCH (09:11)
[2019-03-28] MEDS ORDERED: FIBERSOURCE HN 1.2 CAL 1000 ML BAG GT SCH (14:00)
[2019-03-28] MEDS: FIBERSOURCE HN 1.2 CAL 1000 ML BAG GT SCH (14:36)
[2019-03-28] MEDS: TUBE FEEDING WATER FLUSH GT SCH ×2 (18:35→22:02)
--- NOTE | 2019-03-28 18:35 | Hospitalist Progress Note ---
Date of Service March 28, 2019 Assessment & Plan (1) Aspiration into respiratory tract: - Did have an episode of vomiting - leukocytosis is resolved, no signs of respiratory distress and audible wheezing resolved today and likely doesn't handle secretions adequately - did have this patient previous admission which was documented that he would have a lot of gurgling during each visit - CXR without an acute process - on CT Abd/Pelvis the bottom lung vasquez show a tree-in-bud appearance and could be an aspiration component but procalcitonin is negative - Will continue Zosyn therapy at this time - could be more of an inflammatory process/pneumonitis - will give a low dose steroid to monitor for improvement in respiratory status -- Does have underlying COPD Present on Admission?: Yes (2) Elevated white blood cell count: - Aspiration vs Skin (Abdomen) however skin seems hardened and no drainage and likely from PEG irritation/wound concern for burn-like injury? - Treatment as above - WBC now resolved (3) Vomiting: - Episode of vomiting prior to admission - no further episodes - there was concern for bleeding/coffee ground however Hgb is staying stable and likely not the cause - Continue Pepcid IV daily - Will resume tube feeds today - discussed with Hoisting Engineer - recommend continuous feeds given his aspiration risk and reduce risk of excessive residuals as maybe that was the cause of his vomiting and maybe some delayed gastric emptying -- Did perform a CT Abd/Pelvis due to distension/hardening of R side abdomen - no evidence of SBO but significant constipation and distension improved after bowel movement - Appreciate recommendations for feed advancements and flushes - will have to discuss with [facility] to see if continuous feeds is a possibility at their facility (4) Dysphasia as late effect of cerebrovascular accident (CVA): - Significant residual deficits from his prior CVA; maintain aspiration precautions - ASA resumed; Continue Atorvastatin 20 mg daily (5) COPD (chronic obstructive pulmonary disease): - Mild exacerbation vs results of aspiration - Nebs, Mucinex; Prednisone 20 mg daily (6) Diabetes: - STABLE - Hold Metformin and cover with SSI; will hold Lantus until feeds are up and assess BSGs - likely can be added back tomorrow (7) HLD (hyperlipidemia): - STABLE - Continue Atorvastatin (8) CKD (chronic kidney disease): - STABLE - Continue to monitor (9) GERD (gastroesophageal reflux disease): - STABLE/Chronic - Pepcid IV daily (10) Epilepsy: - No seizures - Continue Carbamazepine 400 mg BID and 100 mg HS (11) DVT prophylaxis: - SCDs; Xarelto Disposition: Resident of [facility]; may need feed pump for continuous feeds? possible D/C next 1-2 days Subjective Continues to appear comfortable. Seems to be getting more agitated today with assessments and interventions. No more audible wheezing today or gurgling. Did move his bowels and abdomen is less distended and softer. Restarted tube feedings and will monitor for tolerance Review of Systems Review of Systems: Unobtainable due to cognitive status (significant aphasia and inability to follow commands S/P CVA) Physical Exam Constitutional: no acute distress and not ill appearing Eyes: + anicteric sclerae medial deviation of R eye Neck: trachea midline Respiratory: + cough (minimal); no respiratory distress Auscultation: + rhonchi no audible adventitious sounds on assessment today Cardiovascular: RRR, no murmur, no edema Gastrointestinal (Abdomen): Inspection/Auscultation: normal bowel sounds; abdomen not distended Percussion/Palpation: abdomen soft; abdomen nontender + PEG tube Musculoskeletal: Head/Neck/Chest: normocephalic, head atraumatic and neck supple Skin: large oblong wound of lower L abdomen and around groin. Dried and crusty Psychiatric: Orientation: alert Results & Data Vital Signs (Past 12 Hours) Vital Signs Temp Pulse Resp BP Pulse Ox 03/28/19 15:44 36.7 C 78 20 122/61 96 03/28/19 14:23 81 98 03/28/19 08:36 37 C 78 18 130/83 97 (1) Aspiration into respiratory tract Encounter type: initial encounter Qualified Code(s): T17.908A - Unspecified foreign body in respiratory tract, part unspecified causing other injury, initial encounter (2) Elevated white blood cell count Leukocytosis type: unspecified Qualified Code(s): D72.829 - Elevated white blood cell count, unspecified (3) Vomiting Nausea presence: unspecified Vomiting Intractability: non-intractable Vomiting type: unspecified Qualified Code(s): R11.10 - Vomiting, unspecified (4) COPD (chronic obstructive pulmonary disease) COPD type: unspecified COPD Qualified Code(s): J44.9 - Chronic obstructive pulmonary disease, unspecified (5) Diabetes Diabetes mellitus type: type 2 Diabetes mellitus oysterman insulin use: with senior living use Diabetes mellitus complication status: without complication Qualified Code(s): E11.9 - Type 2 diabetes mellitus without complications; Z79.4 - [facility] (current) use of insulin (6) HLD (hyperlipidemia) Hyperlipidemia type: unspecified Qualified Code(s): E78.5 - Hyperlipidemia, unspecified (7) CKD (chronic kidney disease) Chronic kidney disease stage: unspecified stage Qualified Code(s): N18.9 - C hronic kidney disease, unspecified (8) GERD (gastroesophageal reflux disease) Esophagitis presence: esophagitis presence not specified Qualified Code(s): K21.9 - Gastro-esophageal reflux disease without esophagitis (9) Epilepsy Epilepsy type: unspecified Intractability: not intractable Status epilepticus: without status epilepticus Qualified Code(s): G40.909 - Epilepsy, unspecified, not intractable, without status epilepticus
[2019-03-28] MEDS: ATORVASTATIN 20 MG TAB GT SCH (21:37)
[2019-03-28] MEDS: RIVAROXABAN 20 MG TAB PO SCH (21:38)
[2019-03-29] MEDS: guaiFENesin SUGAR FREE 100 MG/5 ML UDC GT SCH ×4 (00:08→17:14)
[2019-03-29] MEDS: INSULIN ASPART 100 UNITS/ML 3 ML PEN SC SCH ×5 (00:52→21:25)
[2019-03-29] MEDS: ALBUT/IPRATROP 3MG/0.5MG NEB 3 ML VIAL INH SCH ×5 (01:44→19:19)
[2019-03-29] MEDS: PIPERACILLIN/TAZOBACTAM 3.375 GM in DEXTROSE 5% 100 ML IV SCH ×3 (05:54→21:45)
[2019-03-29] MEDS: BUDESONIDE 0.5 MG/2 ML VIAL (PULMICORT) INH SCH ×3 (07:23→19:18)
[2019-03-29 08:13] LABS: Creatinine Clr Calc Pharmacy 123.9 ml/min; Est GFR (African American) 117.4; Est GFR (Non-African American) 101.3
[2019-03-29] MEDS: FAMOTIDINE 20 MG in SYRINGE 3 ML IV SCH (08:56)
[2019-03-29] MEDS: CARBAMAZEPINE 100 MG CHEW TAB PO SCH ×3 (08:57→21:29)
[2019-03-29] MEDS: predniSONE 20 MG TAB PO SCH (08:57)
[2019-03-29] MEDS: TRAZODONE HCL 50 MG TAB GT SCH ×3 (08:57→21:30)
[2019-03-29] MEDS: TUBE FEEDING WATER FLUSH GT SCH ×4 (08:57→21:31)
[2019-03-29] MEDS: CITALOPRAM 40 MG TAB GT SCH (08:57)
[2019-03-29] MEDS: levETIRAcetam ORAL SOLN 100MG/ML GT SCH ×2 (08:58→21:28)
[2019-03-29] MEDS ORDERED: ASPIRIN 81 MG ECTAB PO SCH (09:00)
[2019-03-29] MEDS: ASPIRIN 81 MG CHEW PO SCH (09:44)
--- NOTE | 2019-03-29 13:43 | Hospitalist Progress Note ---
Date of Service March 29, 2019 Assessment & Plan (1) Aspiration into respiratory tract: - Did have an episode of vomiting prior to admission - leukocytosis is resolved, no signs of respiratory distress and audible wheezing remains resolved and likely doesn't handle secretions adequately - did have this patient on previous admissions which was documented that he would have a lot of gurgling during each visit - CXR without an acute process - on CT Abd/Pelvis the bottom lung vasquez show a tree-in-bud appearance and could be an aspiration component but procalcitonin is negative - Will continue Zosyn therapy at this time - could be more of an inflammatory process/pneumonitis - will give a low dose steroid to monitor for improvement in respiratory status which seems to have helped -- Does have underlying COPD (2) Elevated white blood cell count: - Aspiration vs Skin (Abdomen) however skin seems hardened and no drainage and likely from PEG irritation/wound concern for burn-like injury? - Treatment as above - WBC now resolved (3) Vomiting: - Episode of vomiting prior to admission - no further episodes - there was concern for bleeding/coffee ground however Hgb is staying stable and likely not the cause - Recommend continuous feeds given his aspiration risk and reduce risk of excessive residuals as maybe that was the cause of his vomiting and maybe some delayed gastric emptying -- Did perform a CT Abd/Pelvis due to distension/hardening of R side abdomen - no evidence of SBO but significant constipation and distension improved after bowel movement - Appreciate recommendations for feed advancements and flushes - almost to goal rate - will have to discuss with [facility] to see if continuous feeds is a possibility at their facility (4) Dysphasia as late effect of cerebrovascular accident (CVA): - Significant residual deficits from his prior CVA; maintain aspiration precautions - ASA resumed; Continue Atorvastatin 20 mg daily (5) COPD (chronic obstructive pulmonary disease): - Mild exacerbation vs results of aspiration - Nebs, Mucinex; Prednisone 20 mg daily (6) Diabetes: - STABLE - Hold Metformin and cover with SSI; resume Lantus HS (7) HLD (hyperlipidemia): - STABLE - Continue Atorvastatin (8) CKD (chronic kidney disease): - STABLE - Continue to monitor (9) GERD (gastroesophageal reflux disease): - STABLE/Chronic (10) Epilepsy: - No seizures - Continue Carbamazepine 400 mg BID and 100 mg HS (11) DVT prophylaxis: - SCDs; Xarelto Disposition: Resident of [facility]; may need feed pump for continuous feeds? if feeds get to goal without vomiting and respiratory status stays stable could D/C tomorrow Subjective Appears calm and comfortable; tolerating continuous feeds and nearing recommended rate without vomiting. Less irritable today and more cooperative during my visit. No further audible wheezing however lungs remain course. Review of Systems Review of Systems: Unobtainable due to cognitive status (severe aphasia) Physical Exam Constitutional: no acute distress and not ill appearing Eyes: + anicteric sclerae Neck: trachea midline Respiratory: no respiratory distress Auscultation: + rhonchi; no wheezes Cardiovascular: RRR, no murmur, no edema Gastrointestinal (Abdomen): Inspection/Auscultation: normal bowel sounds; abdomen not distended Percussion/Palpation: abdomen soft; abdomen nontender and no guarding Musculoskeletal: Head/Neck/Chest: normocephalic, head atraumatic and neck supple Skin: + ulcer (on lower abdomen, hardened, dried, yellowed) Neurologic: Speech / Cognition: + abnormal speech Psychiatric: Orientation: alert Affect: + flat affect Results & Data Vital Signs (Past 12 Hours) Vital Signs Temp Pulse Resp BP Pulse Ox 03/29/19 09:45 70 125/80 96 03/29/19 08:11 37.1 C 92 H 20 171/102 H 92 03/29/19 07:23 77 24 95 (1) Aspiration into respiratory tract Encounter type: initial encounter Qualified Code(s): T17.908A - Unspecified foreign body in respiratory tract, part unspecified causing other injury, initial encounter (2) Epilepsy Epilepsy type: unspecified Intractability: not intractable Status epilepticus: without status epilepticus Qualified Code(s): G40.909 - Epilepsy, unspecified, not intractable, without status epilepticus (3) Diabetes Diabetes mellitus complication status: without complication Diabetes mellitus detention insulin use: with detention use Diabetes mellitus type: type 2 Qualified Code(s): E11.9 - Type 2 diabetes mellitus without complications; Z79.4 - [facility] (current) use of insulin (4) HLD (hyperlipidemia) Hyperlipidemia type: unspecified Qualified Code(s): E78.5 - Hyperlipidemia, unspecified (5) Elevated white blood cell count Leukocytosis type: unspecified Qualified Code(s): D72.829 - Elevated white blood cell count, unspecified (6) CKD (chronic kidney disease) Chronic kidney disease stage: unspecified stage Qualified Code(s): N18.9 - Chronic kidney disease, unspecified (7) COPD (chronic obstructive pulmonary disease) COPD type: unspecified COPD Qualified Code(s): J44.9 - Chronic obstructive pulmonary disease, unspecified (8) GERD (gastroesophageal reflux disease) Esophagitis presence: esophagitis presence not specified Qualified Code(s): K21.9 - Gastro-esophageal reflux disease without esophagitis (9) Vomiting Nausea presence: unspecified Vomiting Intractability: non-intractable Vomiting type: unspecified Qualified Code(s): R11.10 - Vomiting, unspecified
[2019-03-29] MEDS: FIBERSOURCE HN 1.2 CAL 1000 ML BAG GT SCH (15:38)
[2019-03-29] MEDS: INSULIN GLARGINE SOLOSTAR 100 UNITS/ML 3 ML PEN SQ SCH (21:26)
[2019-03-29] MEDS: RIVAROXABAN 20 MG TAB PO SCH (21:28)
[2019-03-29] MEDS: ATORVASTATIN 20 MG TAB GT SCH (21:31)
[2019-03-30] MEDS: INSULIN ASPART 100 UNITS/ML 3 ML PEN SC SCH ×4 (00:20→11:54)
[2019-03-30] MEDS: guaiFENesin SUGAR FREE 100 MG/5 ML UDC GT SCH ×3 (00:23→11:54)
[2019-03-30] MEDS: ALBUT/IPRATROP 3MG/0.5MG NEB 3 ML VIAL INH SCH ×3 (01:54→13:35)
[2019-03-30] MEDS: PIPERACILLIN/TAZOBACTAM 3.375 GM in DEXTROSE 5% 100 ML IV SCH ×2 (05:35→14:24)
[2019-03-30] MEDS: FIBERSOURCE HN 1.2 CAL 1000 ML BAG GT SCH (05:53)
[2019-03-30] MEDS: BUDESONIDE 0.5 MG/2 ML VIAL (PULMICORT) INH SCH (07:03)
[2019-03-30] MEDS: CITALOPRAM 40 MG TAB GT SCH (08:55)
[2019-03-30] MEDS: CARBAMAZEPINE 100 MG CHEW TAB PO SCH (08:56)
[2019-03-30] MEDS: TRAZODONE HCL 50 MG TAB GT SCH ×2 (08:56→14:25)
[2019-03-30] MEDS: predniSONE 20 MG TAB PO SCH (08:56)
[2019-03-30] MEDS: levETIRAcetam ORAL SOLN 100MG/ML GT SCH (08:56)
[2019-03-30] MEDS: TUBE FEEDING WATER FLUSH GT SCH ×2 (08:56→11:54)
[2019-03-30] MEDS: ASPIRIN 81 MG CHEW PO SCH (08:56)
--- NOTE | 2019-03-30 18:33 | Discharge Summary ---
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 Patient resides at [facility] and is full assist, PEG tube in place. By report patient had an episode of vomiting earlier today - large volume of thick, brown emesis, ? if coffee ground material. No hematemesis reported. Also with possible aspiration event. On arrival to the ER he is afebrile, hemodynamically stable, no respiratory distress, adequate oxygenation on 3L [place] ER Course: Zosyn Principal Diagnosis Aspiration Event/Pneumonitis Discharge Exam Constitutional no acute distress and not ill appearing Eyes + anicteric sclerae Neck trachea midline Respiratory no respiratory distress Auscultation: + rhonchi; no wheezes Cardiovascular RRR, no murmur, no edema Gastrointestinal (Abdomen) Inspection/Auscultation: normal bowel sounds; abdomen not distended Percussion/Palpation: abdomen soft; abdomen nontender and no guarding Musculoskeletal Head/Neck/Chest: normocephalic, head atraumatic and neck supple Skin + ulcer (on lower abdomen, hardened, dried, yellowed) Neurologic Speech / Cognition: + abnormal speech Psychiatric Orientation: alert Affect: + flat affect Discharge Data Allergies Allergy/AdvReac Type Severity Reaction Status Date / Time bee venom protein (honey bee) Allergy Unknown LISTED ON Verified 03/25/19 22:43 MAR pseudoephedrine Allergy Unknown UNKNOWN Verified 03/25/19 22:43 Consultations 03/26/19 00:21 ED Decision to Admit Stat 03/26/19 04:16 Consult Case Management - Discharge Planning Routine Ordered Studies 03/27/19 14:22 CT abd pelvis IV con only Routine Hospital Course (1) Aspiration into respiratory tract: - Did have an episode of vomiting prior to admission - leukocytosis is resolved, no signs of respiratory distress and audible wheezing remains resolved and likely doesn't handle secretions adequately - did have this patient on previous admissions which was documented that he would have a lot of gurgling during each visit - CXR without an acute process - on CT Abd/Pelvis the bottom lung vasquez show a tree-in-bud appearance and could be an aspiration component but procalcitonin is negative - Completed course of Zosyn therapy - could be more of an inflammatory process/pneumonitis - will finish a small steroid course and monitor for improvement in respiratory status which wheezing did improve with use -- Does have underlying COPD - Given his significant CVA deficits he is high risk for aspiration and high risk for readmission (2) Elevated white blood cell count: - Aspiration vs Skin (Abdomen) however skin seems hardened and no drainage and likely from PEG irritation/wound concern for burn-like injury? - Dressing and wound care recommendations added to discharge instruction - Treatment as above - WBC now resolved (3) Vomiting: - Episode of vomiting prior to admission - no further episodes - there was concern for bleeding/coffee ground however Hgb is staying stable and likely not the cause - Recommend continuous feeds given his aspiration risk and reduce risk of excessive residuals as maybe that was the cause of his vomiting and maybe some delayed gastric emptying -- Did perform a CT Abd/Pelvis due to distension/hardening of R side abdomen - no evidence of SBO but significant constipation and distension improved after bowel movement - Tube feeding recommendations given to [facility] and adjustments per facilities Nutrition/Pharmacy coordinators (4) Dysphasia as late effect of cerebrovascular accident (CVA): - Significant residual deficits from his prior CVA; maintain aspiration precautions - ASA resumed; Continue Atorvastatin 20 mg daily (5) COPD (chronic obstructive pulmonary disease): - Mild exacerbation vs results of aspiration - Nebs, Mucinex; Prednisone 20 mg daily x 2 more days then 10 mg x 2 days then finish (6) Diabetes: - STABLE - Continue Metformin and Lantus (7) HLD (hyperlipidemia): - STABLE - Continue Atorvastatin (8) CKD (chronic kidney disease): - STABLE - Continue to monitor (9) GERD (gastroesophageal reflux disease): - STABLE/Chronic (10) Epilepsy: - No seizures - Continue Carbamazepine 400 mg BID and 100 mg HS (11) DVT prophylaxis: - SCDs; Xarelto Disposition: Resident of [facility] Total Time Total Time Spent Total Time Spent (In Minutes): Greater than 30 minutes Discharge Plan Discharge Items Patient Disposition: Transfer Group Home Fac Reason For Visit: ASPIRATION, CGE Discharge Diagnosis: Aspiration; Vomiting Discharge Goals: Decrease discomfort, Improve disease control and Prevent disease Activity: Resume your previous activity Non-emergency contact: Primary Care Provider Call non-emergency contact if: you have any medication questions, your symptoms worsen and you have a fever Follow-up/Referrals: Leyla Post [Primary Care Provider] - Diet: Nothing by mouth Addtl Provider Instructions: Aspiration: - Patient had an episode of vomiting prior to admission - no direct infiltrate on Xray to suggest an aspiration pneumonia but some tree-in-bud appearance on CT that could be an inflammatory process vs infectious. Procalcitonin is negative - Did cover with Zosyn during admission but will stop further antibiotics at this time. Will do a short steroid taper as a component may be from underlying COPD - Patient continues with course breath sounds but no further audible wheezing or gurgling and on room air with appropriate saturations. No signs of respiratory compromise. On previous admissions his lung sounds were not clear and likely related to issues with controlling his own secretions given his significant deficits from his CVA - Recommendation would be to change to continuous tube feeds to help reduce the risk of aspiration but of course this will not completely resolve this. He did have some constipation on CT so a good bowel regimen will need to continue as this could have contributed to vomiting. CT does not show any acute process or issues with PEG tube. -- Could consider PRN Reglan if it appears delayed gastric motility is present - Continuous tube feed recommendations as follows - Reported that he is on Jevity 1.5 at [facility] while we have Fibersource 1.2 here. Recommend facility purchaser review and adjust as necessary -- Continue Jevity 1.5 at rate of 55 mL/hr which is goal rate for this concentration. Continue the additional protein (prosource) for approx. 60 additional calories -- Recommendation would be 300 mL free water flushes four times a day -- Can be adjusted to meet caloric recommendations and macronutrients that were previously established for him Skin: Per Wound - Gluteal cleft - cleanse gently and use stoma powder and brush off excess; cover with aleo vesta - L abdomen - clean with saline and cover with Kaltostat and secure with tegaderm; change every other day or if wet -- Recommended to not use Silver topical cream on the abdomen/thigh - L thigh - clean with saline and cover with optifoam - change every 3 days Vomiting: - No further episodes during admission - maybe from delayed gastric emptying with constipation? Tolerating tube feeds which were advanced to goal rate - Could consider Reglan if delayed gastric motility is ongoing issue - Monitor residuals - Hemoglobin has remained stable and no signs to suggest gastric bleed at this time. Will require monitoring given aspirin therapy and Xarelto Diabetes: - STABLE - Continue previously prescribed regimen and monitor BSGs HLD (hyperlipidemia): - STABLE - Continue Atorvastatin CKD (chronic kidney disease): - STABLE; Continue to monitor routinely GERD (gastroesophageal reflux disease): - STABLE/Chronic Epilepsy: - No seizures - Continue Carbamazepine 400 mg BID and 100 mg HS Prescriptions: New prednisone 20 mg Tablet 20 mg PO DAILY 3 Days Qty: 3 RF: 0 Continued acetaminophen 650 mg Suppository 650 mg IL Q6H PRN (Reason: Pain/fever) RF: 0 atorvastatin 20 mg Tablet 20 mg Feeding Tube HS RF: 0 ipratropium-albuterol 0.5 mg-3 mg(2.5 mg base)/3 mL Solution For Nebulization 3 ml INHALATION Q6 RF: 0 citalopram 40 mg Tablet 40 mg Feeding Tube QAM RF: 0 trazodone 50 mg Tablet 25 mg Feeding Tube TID RF: 0 triamcinolone acetonide 0.5 % Cream 1 applic TOPICAL Q12 PRN (Reason: facial eczema) RF: 0 aspirin 81 mg Tablet,Delayed Release (Dr/Ec) 81 mg Feeding Tube DAILY RF: 0 guaifenesin 100 mg/5 mL Liquid 10 ml Feeding Tube Q6 RF: 0 mineral oil [Fleet Mineral Oil] Enema 118 ml IL DAILY PRN (Reason: Constipation) RF: 0 magnesium hydroxide [Milk of Magnesia] 400 mg/5 mL Suspension 30 ml feeding tube UD PRN (Reason: Constipation) RF: 0 bisacodyl [Dulcolax (bisacodyl)] 10 mg Suppository 10 mg IL DAILY PRN (Reason: Constipation) RF: 0 hyoscyamine sulfate [Levsin] 0.125 mg Tablet 0.125 mg feeding tube Q8 PRN (Reason: increased secretions) RF: 0 metformin 1,000 mg Tablet 1,000 mg Feeding Tube BIDM RF: 0 Glucagon Emergency Kit (human) 1 mg Recon Soln 1 dose IM UD PRN (Reason: Hypoglycemia) RF: 0 budesonide 0.5 mg/2 mL Suspension For Nebulization 0.5 mg INHALATION Q8 RF: 0 carbamazepine 100 mg/5 mL Suspension 100 mg Feeding Tube HS RF: 0 Lactobacillus acidophilus Capsule 1 cap Feeding Tube TID RF: 0 levetiracetam 100 mg/mL Solution 10 ml Feeding Tube BID RF: 0 acetaminophen 325 mg Capsule 650 mg Feeding Tube Q8 PRN (Reason: Pain) RF: 0 carbamazepine 200 mg/10 mL Suspension 400 mg Feeding Tube BID RF: 0 Xarelto 20 mg Tablet 20 mg G-Tube HS RF: 0 insulin glargine 100 unit/mL (3 mL) Insulin Pen 15 unit SUBCUT HS RF: 0 silver sulfadiazine 1 % Cream 1 applic TOPICAL BID RF: 0 Changed Enteral Feed 1 dose PEG CONT Qty: 0 RF: 0 Stand-Alone Forms: [facility] Discharge Orders: Discharge Order (Routine); Ordered 03/30/19 Ordered By: Stormy Beasley Skilled Items Patient informed of condition?: Yes DNR: Yes Discharge Level of Care: Skilled Communicable Disease: Yes (MRSA) Discharge Prognosis: Stable Admission Data Admit Date/Time: 03/29/19 08:05 Attending Provider: Jame Nazario Admit Provider: Aminah Callaway Primary Care Provider: Leyla Post Other Providers: Aminah Callaway Service: Medical Other Interventions: Discharge Summary Assessment (RN) Last Done: 03/30/19 14:51 Pending Studies at Discharge: No DC Date/Time DO NOT enter until pt leaves facility: 03/30/19 15:54 Supervising Physician Co-Signing Physician Notes Attending note: patient seen and examined with Stormy Beasley PA-C. I agree with her discharge summary. - Aspiration pneumonia completed a course of Zosyn, afebrile, WBC normal, no further treatment needed - Aspiration, vomiting changed tube feedings to continuous from bolus to try to limit further vomiting, will continue this at [facility] for full details see Stormy Beasley's note
--- NOTE | 2019-03-31 11:54 | Coding Query ---
CODING QUERY To promote full compliance with coding requirements relating to patient care, provider participation is requested in all cases of business development consultant uncertainty. Please assist us with the question(s) below: Coding Question(s): Patient admitted from OR with possible aspiration event/pneumonitis. 03/29 progress note states " CXR without acute process. CT/Abdomen - lung vasquez show a free in bud appearance, could be an aspiration component". Discharge Summary mentions aspiration/possible pneumonitis. Please check below the diagnosis you treated. Thank you ! ERIN [place] [facility] Physician's Response(s): Aspiration in Respiratory Track x Aspiration Pneumonia Cannot clinically determine if aspiration in respiratory track or aspiration pneumonia was treated Other: Please document: Principal Diagnosis: "that condition established after study, to be chiefly responsible for occasioning the admission of the patient to the hospital for care." Co-Existing Principal Diagnosis: "when two or more diagnoses equally meet the criteria for principal diagnosis as determined by the circumstances of admission, diagnostic work up, and/or therapy provided, and the Alphabetic Index, Tabular List, or another coding guideline does not provide sequencing direction, any one of the diagnoses may be sequenced first." "When the physician has documented what appears to be a current diagnosis in the body of the record, but has not included the diagnosis in the final diagnostic statement, the physician should be asked whether the diagnosis should be added." (Source Coding [facility] 2 QTR90. p3-4) BARBIE
== END 2019-03-30 15:54 | DRG 178 ==
LOC: 4E 22:22 → ED 22:22 → SUATTDRO 03-26 03:05 → 4E 03-26 03:27

== ENCOUNTER 2019-06-08 12:00 | Inpatient (IN) ==
[2019-06-08] MEDS ORDERED: ACETAMINOPHEN 1,000 MG/100 ML VIAL IV STA (12:10)
[2019-06-08] MEDS ORDERED: SODIUM CHLORIDE 0.9% 1000ML 2,000 ML IV ONE (12:10)
[2019-06-08] MEDS ORDERED: VANCOMYCIN CONSULT ACTIVE PRN ×2 (12:13→19:42)
[2019-06-08] MEDS ORDERED: PIPERACILLIN/TAZOBACTAM 4.5 GM/120 ML BAG IV ONE (12:13)
[2019-06-08] MEDS ORDERED: PIPERACILL/TAZOBAC CONSULT ACTIVE PRN ×2 (12:13→19:42)
[2019-06-08] MEDS ORDERED: VANCOMYCIN HCL 1,500 MG in SODIUM CHLORIDE 0.9% 500 ML IV ONE (12:13)
--- NOTE | 2019-06-08 12:43 | XRay Report ---
XR chest 1V portable CLINICAL HISTORY: Sepsis. COMPARISON STUDY: Chest radiograph March 27, 2019. Chest CT November 25, 2017. FINDINGS: Lung volumes are normal. Lungs are clear. There is no pneumothorax or pleural effusion. Car diac size is normal. Mediastinal contours are normal. There is no evidence for pulmonary edema. Incid ental note is made of several old right rib fractures. IMPRESSION: No acute cardiopulmonary findings. Electronically signed by: Ulysses Barron M.D. 06/08/2019 12:42 PM
[2019-06-08 13:01] LABS: Appearance Urine Cloudy (Clear); Bilirubin Urine Negative (Negative); Blood Urine 1+ (Negative); Color Urine Yellow; Glucose Urine UA 3+ (Negative); Ketones Urine Negative (Negative); Leukocyte Esterase Urine Negative (Negative); Nitrite Urine Negative (Negative); Protein Urine Negative (Negative); Specific Gravity Urine 1.041 (1.000-1.030); Urobilinogen Urine Negative (Negative)
[2019-06-08 13:15] LABS: Basophils # (auto) 0.03 K/uL (0-0.2); Basophils % (auto) 0.3 %; Eosinophils # (auto) 0.02 K/uL (0-0.5); Eosinophils % (auto) 0.2 %; Hematocrit (blood only) 44.3 % (42-52); Hemoglobin 13.8 g/dL (14.0-18.0); Immature Granulocytes # (auto) 0.02 K/uL (0.00-0.02); Immature Granulocytes % (auto) 0.2 %; Lymphocytes # (auto) 1.53 K/uL (1.2-3.4); Lymphocytes % (auto) 13.8 %; Mean Corpuscular Hgb Conc 31.2 g/dL (32-36); Mean Corpuscular Volume 102.8 fL (80-100); Monocytes % (auto) 9.9 %; Neutrophils # (auto) 8.36 K/uL (1.4-6.5); Neutrophils % (auto) 75.6 %; Platelet Count 198 K/uL (130-400); RDW Coefficient of Variation 14.7 % (11.5-14.5); RDW Standard Deviation 55.6 fL (36.4-46.3); Red Blood Count 4.31 M/uL (4.7-6.1); White Blood Count 11.06 K/uL (4.8-10.8)
[2019-06-08 13:16] LABS: Base Excess VBG 1.2 mEq/L; Oxygen Saturation VBG 88.5 %; pH VBG 7.3 (7.36-7.41)
[2019-06-08 13:31] LABS: Partial Thromboplastin Ratio 0.8; Partial Thromboplastin Time 22.3 Seconds (21.0-31.0); Prothrombin Time 10.1 Seconds (9.0-12.0)
[2019-06-08 13:55] LABS: Alanine Aminotransferase 21 U/L (12-78); Albumin Globulin Ratio 0.7 (0.9-2); Albumin Level 2.8 gm/dl (3.4-5.0); Alkaline Phosphatase 83 U/L (45-117); Aspartate Aminotransferase 8 U/L (15-37); BUN Creatinine Ratio 32.1 (10-20); Bilirubin Direct < 0.1 mg/dl (0-0.2); Bilirubin,Total 0.2 mg/dl (0.2-1); Blood Urea Nitrogen 43 mg/dl (7-18); Calcium 8.5 mg/dl (8.5-10.1); Carbon Dioxide 29 mmol/L (21-32); Chloride 122 mmol/L (98-107); Creatinine Clr Calc Pharmacy 57.9 ml/min; Est GFR (African American) 65.8; Est GFR (Non-African American) 56.8; Magnesium 2.5 mg/dl (1.8-2.4); Phosphorus 3.7 mg/dl (2.5-4.9); Potassium 3.9 mmol/L (3.5-5.1); Total Protein 6.8 gm/dl (6.4-8.2)
[2019-06-08 13:58] LABS: Epithelial Cell Urine 0-5 /lpf (0-5); RBC Urine 0-4 /hpf (0-4)
[2019-06-08 13:59] LABS: Amorphous Sediment Urine Present (None Prsent); Bacteria Urine 1+ (Negative)
[2019-06-08] MEDS ORDERED: IOVERSOL 100ml IV PRN (14:33)
--- NOTE | 2019-06-08 14:50 | CT Scan Report ---
CT abd pelvis IV con only CT DOSE: 942.64 mGycm HISTORY: Dyspnea sepsis TECHNIQUE: Multiaxial CT images of the abdomen and pelvis were performed following the use of intrave nous contrast. A dose lowering technique was utilized adhering to the principles of ALARA. COMPARISON STUDY: 03/27/2019 FINDINGS: Interval development of significant peribronchial thickening of the lung bases. Nodular typ e atelectasis left lung base. 2. Nodularity is not felt to be present given the short interval development of this finding. Small focal area of consolidative change posterior costal phrenic angle on the left is 2 cm. Mild fatty replacement of the liver. Probable small gallstone versus gallbladder polyp. Satisfactory position of PEG tube. Left kidney is absent. Pancreas is unremarkable. Nonobstructive bowel pattern. Normal appendix. Grace catheter catheter is present within a collapsed bladder. No free fluid within the pelvic cul-de-sac. IMPRESSION: 1. No acute process in the abdomen or pelvis.. 2. PEG tube in good position. 3. Nonobstructive bowel pattern. 4. Considerable peribronchial thickening of the lower lungs bilaterally with evidence for focal conso lidative/atelectatic change posterior left costophrenic angle. The above report was generated using voice recognition software. It may contain grammatical, syntax or spelling errors. Electronically signed by: Winston Lozano M.D. 06/08/2019 2:49 PM
[2019-06-08] MEDS ORDERED: ALBUT/IPRATROP 3MG/0.5MG NEB 3 ML VIAL NEB STA (15:01)
[2019-06-08] MEDS ORDERED: INSULIN ASPART 100 UNITS/ML 3 ML PEN SC STA (16:01)
--- NOTE | 2019-06-08 16:14 | History & Physical Report ---
Date of Service June 08, 2019 Assessment & Plan (1) Sepsis: Secondary to pneumonia, likely aspiration which patient has had in the past - on CT abd/pelvis - Considerable peribronchial thickening of the lower lungs bilaterally with evidence for focal consolidative/atelectatic change posterior left costophrenic angle. Lactic acid was 4.5 on admission, ph 7.3, WBCs 11, tachycardic and febrile in the ED - admit PCU - titrate O2 - currently requiring 4L - Duonebs, continue Vanc and Zosyn started in ED - repeat lactic acid - IVF as below (2) Hypernatremia: Na 163 when corrected for hyperglycemia 2.7L free water deficit Will give D5 @ 100 mls/hr, check prps q4h Given 2L NSS in the ED (3) Type 2 diabetes mellitus with hyperglycemia: Blood sugar was 477 on admission Pharmacy glycemic management (4) Epilepsy: Continue carbamazepine, Keppra (5) History of CVA (cerebrovascular accident): Patient is non verbal with PEG tube Continue statin, ASA, Xeralto consult Palliative care (6) DVT prophylaxis: Hai Aranda History of Present Illness "Mk" Madalyn is a 63yo c male with history of prior CVA resulting in severe functional deficit -aphasia, hemiplegia and hemiparesis. Patient resides at [facility] and is full assist, PEG tube in place. He is non verbal. I did talk with the tea and spice supervisor at [facility] who said that he has been having fevers for a few days. Primary Care Provider: [facility] Allergies Allergy/AdvReac Type Severity Reaction Status Date / Time bee venom protein (honey bee) Allergy Unknown LISTED ON Verified 06/08/19 13:03 MAR pseudoephedrine Allergy Unknown UNKNOWN Verified 06/08/19 13:03 Home Medications Home Medications Medication Instructions Recorded Confirmed Type Lactobacillus acidophilus 1 cap FEEDING TUBE TID 11/01/18 06/08/19 History Xarelto 20 mg G-TUBE HS 11/01/18 06/08/19 History acetaminophen 650 mg FEEDING TUBE Q8 PRN 11/01/18 06/08/19 History acetaminophen 650 mg KS Q6H PRN 11/01/18 06/08/19 History aspirin 81 mg FEEDING TUBE QAM 11/01/18 06/08/19 History atorvastatin 20 mg FEEDING TUBE HS 11/01/18 06/08/19 History budesonide 0.5 mg INHALATION Q8 11/01/18 06/08/19 History carbamazepine 100 mg FEEDING TUBE HS 11/01/18 06/08/19 History carbamazepine 400 mg FEEDING TUBE BID 11/01/18 06/08/19 History citalopram 40 mg FEEDING TUBE QAM 11/01/18 06/08/19 History guaifenesin 10 ml FEEDING TUBE Q6 11/01/18 06/08/19 History ipratropium-albuterol 3 ml INHALATION Q6 11/01/18 06/08/19 History levetiracetam 10 ml FEEDING TUBE BID 11/01/18 03/25/19 History metformin 1,000 mg FEEDING TUBE BIDM 11/01/18 06/08/19 History trazodone 25 mg FEEDING TUBE BID 11/01/18 06/08/19 History insulin glargine 15 unit SUBCUT HS 11/29/18 06/08/19 History silver sulfadiazine 1 applic TOPICAL BID 03/25/19 06/08/19 History amoxicillin-pot clavulanate 1 tab FEEDING TUBE ONCE 06/08/19 06/08/19 History ibuprofen 400 mg PO Q6H PRN 06/08/19 06/08/19 History sennosides [senna] 8.6 mg FEEDING TUBE BID PRN 06/08/19 06/08/19 History Past Med/Surg History Medical History History of CVA (cerebrovascular accident) (Acute) 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 COPD (chronic obstructive pulmonary disease) (Acute) Diabetes (Chronic) type 2 HLD (hyperlipidemia) (Chronic) PVD (peripheral vascular disease) CKD (chronic kidney disease) (Chronic) stage 2 Aspiration pneumonia DVT (deep venous thrombosis) Pneumonia (Acute) Aphasia Asthma Conversion disorder with seizures or convulsions Difficulty in walking Epilepsy with status epilepticus GERD (gastroesophageal reflux disease) Gastrostomy infection Generalized muscle weakness 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 History of venous thrombosis and embolism Hypertension Pressure ulcer of right buttock, stage 2 Tinea unguium Unspecified mood [affective] disorder Surgical History Status post insertion of percutaneous endoscopic gastrostomy (PEG) tube Surgical history unknown Family History Other Family history non-contributory Social History Preferred Language: Spanish Communication Ability: Effective Therapeutic Radiologist Required: No Beliefs That Will Affect Care: None marital status: Single Current Living Situation: [facility] current occupational status: disabled Feels Safe at Home: Yes Smoking Status: Unknown if ever smoked Hx Alcohol Use: No Hx Substance Use: No Physical Exam Physical Exam: General: no distress Eyes: normal inspection, PERLL Mouth: thick yellow mucous on tongue Respiratory: chest non tender, coarse breath sounds throughout, no accessory muscle use Cardiac: regular rate and rhythm, no rub or gallop, no murmur, no edema, no jvd GI/: active bowel sounds, no abd pain or tenderness, soft, non distended Extremities: normal range of motion, normal strength, non tender Neuro:non verbal, moves arms Psych: alert, flat affect Skin: normal color, dry, large area of erythema with crusted satellite lesions over belly, right buttock with stage II pressure ulcer Results & Data Vital Signs (Past 12 Hours) Vital Signs Temp Pulse Pulse Resp BP BP Pulse Ox 06/08/19 15:25 88 18 96 06/08/19 15:14 37.3 C 89 18 119/70 97 06/08/19 13:38 101 H 18 121/86 96 06/08/19 12:15 38 C H 109 H 16 127/81 94 Code Status & VTE Plan Code Status DNR per POLST VTE Prophylaxis Plan VTE Prophylaxis will be ordered: Yes PG Care Time/CCT Total # of Minutes Spent Total Time Spent with Patient: Total time spent is greater than 50% in coordination of care (as documented) at patient's floor/unit and/or counseling patient: (1) Sepsis Sepsis acute organ dysfunction status: unspecified Sepsis type: sepsis due to unspecified organism Qualified Code(s): A41.9 - Sepsis, unspecified organism (2) Epilepsy Epilepsy type: unspecified Intractability: not intractable Status epilepticus: without status epilepticus Qualified Code(s): G40.909 - Epilepsy, unspecified, not intractable, without status epilepticus
[2019-06-08 16:23] LABS: Glucose 477 mg/dl (70-99); Sodium 157 mmol/L (136-145)
[2019-06-08 18:10] LABS: Beta-Hydroxybutyrate 2.35 mg/dl (0.2-2.81)
--- NOTE | 2019-06-08 18:48 | Emergency Department Note ---
Entered by Martina Norman acting as a scribe for History of Present Illness General Chief complaint: Illness Stated complaint: illness/ poss. sepsis Time Seen by Provider: 06/08/19 12:03 Source: EMS and other (nursing staff) Limitations: other (baseline nonverbal) History of Present Illness Onset (ago): day(s) 4 Pain Consistency: + other (episode) Quality: + other (illness) Relieved By: not by medication (Tylenol) Associated symptoms: + fever/chills (fever) and + other (elevated BSG, lethargic, green from peg tube) The patient is a 63 year old male who presents to the Emergency Room with complaints of an episode of an illness starting 4 days ago. Per nursing staff, the patient is coming from [facility] and is nonverbal at baseline. They report that he has had a fever for the last 4 days. They report that they have been trying Tylenol with no relief. They state that today when they checked his sugar it was 645 at [facility]. They report that they tried giving 1- units of Novolog, but it offered no relief so they called 911. EMS notes that the patients blood sugar when they checked was over 600. They note that he is tachycardic and was 85% on room air. Nursing staff notes that the patient is a little more lethargic than normal and his peg tube has been excreting green content, rather than the normal clear. They note that he apparently moves around more than he is. They note that the patient is a DNR and DNI. HPI and ROS are limited secondary to patients baseline nonverbal. Home Medications Home Medications Medication Instructions Recorded Confirmed Type Lactobacillus acidophilus 1 cap FEEDING TUBE TID 11/01/18 06/08/19 History Xarelto 20 mg G-TUBE HS 11/01/18 06/08/19 History acetaminophen 650 mg FEEDING TUBE Q8 PRN 11/01/18 06/08/19 History acetaminophen 650 mg NV Q6H PRN 11/01/18 06/08/19 History aspirin 81 mg FEEDING TUBE QAM 11/01/18 06/08/19 History atorvastatin 20 mg FEEDING TUBE HS 11/01/18 06/08/19 History budesonide 0.5 mg INHALATION Q8 11/01/18 06/08/19 History carbamazepine 100 mg FEEDING TUBE HS 11/01/18 06/08/19 History carbamazepine 400 mg FEEDING TUBE BID 11/01/18 06/08/19 History citalopram 40 mg FEEDING TUBE QAM 11/01/18 06/08/19 History guaifenesin 10 ml FEEDING TUBE Q6 11/01/18 06/08/19 History ipratropium-albuterol 3 ml INHALATION Q6 11/01/18 06/08/19 History levetiracetam 10 ml FEEDING TUBE BID 11/01/18 03/25/19 History metformin 1,000 mg FEEDING TUBE BIDM 11/01/18 06/08/19 History trazodone 25 mg FEEDING TUBE BID 11/01/18 06/08/19 History insulin glargine 15 unit SUBCUT HS 11/29/18 06/08/19 History silver sulfadiazine 1 applic TOPICAL BID 03/25/19 06/08/19 History amoxicillin-pot clavulanate 1 tab FEEDING TUBE ONCE 06/08/19 06/08/19 History ibuprofen 400 mg PO Q6H PRN 06/08/19 06/08/19 History sennosides [senna] 8.6 mg FEEDING TUBE BID PRN 06/08/19 06/08/19 History Allergies Allergy/AdvReac Type Severity Reaction Status Date / Time bee venom protein (honey bee) Allergy Unknown LISTED ON Verified 06/08/19 13:03 MAR pseudoephedrine Allergy Unknown UNKNOWN Verified 06/08/19 13:03 Past Med/Surg History Medical History History of CVA (cerebrovascular accident) (Acute) 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 COPD (chronic obstructive pulmonary disease) (Acute) Diabetes (Chronic) type 2 HLD (hyperlipidemia) (Chronic) PVD (peripheral vascular disease) CKD (chronic kidney disease) (Chronic) stage 2 Aspiration pneumonia DVT (deep venous thrombosis) Pneumonia (Acute) Aphasia Asthma Conversion disorder with seizures or convulsions Difficulty in walking Epilepsy with status epilepticus GERD (gastroesophageal reflux disease) Gastrostomy infection Generalized muscle weakness 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 History of venous thrombosis and embolism Hypertension Pressure ulcer of right buttock, stage 2 Tinea unguium Unspecified mood [affective] disorder Surgical History Status post insertion of percutaneous endoscopic gastrostomy (PEG) tube Surgical history unknown Family History Other Family history non-contributory Social History Preferred Language: Monegasque Communication Ability: Effective Web Ui Developer Required: No Beliefs That Will Affect Care: None marital status: Single Current Living Situation: Prison current occupational status: disabled Feels Safe at Home: Yes Smoking Status: Unknown if ever smoked Hx Alcohol Use: No Hx Substance Use: No Review of Systems HPI and ROS are limited secondary to patients baseline nonverbal. Physical Exam Vital Signs Vital Signs - 24 hr 06/08/19 12:15 06/08/19 13:38 06/08/19 15:14 Temperature 38 C H 37.3 C Temperature Source Oral Oral Sepsis Recent Fever Within 48 Hours Yes Sepsis Action Taken by Nursing No Action Required Pulse Rate 109 H Pulse Rate [Left] 101 H 89 Pulse Rhythm Regular Pulse Rhythm [Left] Regular Regular Pulse Strength Normal Pulse Strength [Left] Normal Normal Respiratory Rate 16 18 18 Respiratory Effort / Characteristics Non-Labored Spontaneous Non-Labored Spontaneous Non-Labored Spontaneous Respiratory Depth Normal Normal Normal Respiratory Pattern Blood Pressure 127/81 Blood Pressure [Right Arm] 121/86 119/70 Blood Pressure Mean 96 Blood Pressure Mean [Right Arm] 97 86 Blood Pressure Position Lying Blood Pressure Position [Right Arm] Lying Lying Pulse Oximetry 94 96 97 Oxygen Delivery Method Nasal Cannula Nasal Cannula Nasal Cannula Oxygen Flow Rate 4 4 4 06/08/19 15:25 06/08/19 17:36 Temperature Temperature Source Sepsis Recent Fever Within 48 Hours Sepsis Action Taken by Nursing Pulse Rate Pulse Rate [Left] 88 78 Pulse Rhythm Pulse Rhythm [Left] Regular Pulse Strength Pulse Strength [Left] Normal Respiratory Rate 18 18 Respiratory Effort / Characteristics Non-Labored Spontaneous Non-Labored Spontaneous Respiratory Depth Normal Respiratory Pattern Regular Blood Pressure Blood Pressure [Right Arm] 126/73 Blood Pressure Mean Blood Pressure Mean [Right Arm] 90 Blood Pressure Position Blood Pressure Position [Right Arm] Lying Pulse Oximetry 96 98 Oxygen Delivery Method Nasal Cannula Nasal Cannula Oxygen Flow Rate 4 4 GENERAL: Awake, alert, ill-appearing. HENT: Normocephalic, atraumatic. Oropharynx with dry mucous membranes and otherwise unremarkable. EYES: Normal conjunctiva. Sclera non-icteric. NECK: Supple. No nuchal rigidity. FROM. No JVD. RESPIRATORY: Scattered wheezes and rhonchi. CARDIAC: Tachycardic rate, normal rhythm. Extremities warm and well perfused. Pulses equal. ABDOMEN: Soft, non-distended. No tenderness to palpation. No rebound or guarding. No masses. Peg tube site is clean, dry, and intact. RECTAL: Deferred. MUSCULOSKELETAL: Chest examination reveals no tenderness. The back is symmetrical on inspection without obvious abnormality. There is no CVA tende rness to palpation. No joint edema. LOWER EXTREMITIES: Calves are equal size bilaterally and non-tender. No edema. No discoloration. NEURO: Alert. Nonverbal at baseline though will mumble name. SKIN: No jaundice noted. Mild erythema and warmth across the lower abdomen with scattered superficial ulcers. Course 1204: Past medical records reviewed. The patient was evaluated in room A10. A complete history and physical exam was performed. 1502: I discussed the patient's case with SOLANGE Wood Hospitalist. She will evaluate the patient for further management. Consultations Consultation #1: I discussed the patient's case with SOLANGE Wood Hospitalist. She will evaluate the patient for further management. Time: 15:02 Administered Medications Atorvastatin Calcium (Lipitor) 20 mg PEG HS BARBARA Stop: 07/08/19 20:59 Last Admin: 06/08/19 22:04 Dose: 20 mg Documented by: [id number] Budesonide (Pulmicort Respules) 0.5 mg INH Q8R BARBARA Stop: 07/08/19 22:59 Last Admin: 06/08/19 23:02 Dose: 0.5 mg Documented by: [id number] Carbamazepine (Tegretol) 100 mg PO HS BARBARA Stop: 07/08/19 20:59 Last Admin: 06/08/19 22:04 Dose: 100 mg Documented by: [id number] Piperacillin Sod/Tazobactam (Sod 3.375 gm/ Dextrose) 115 mls @ 28.75 mls/hr IV Q8H BARBARA; Protocol Stop: 06/15/19 20:59 Last Admin: 06/08/19 22:04 Dose: 28.8 mls/hr Documented by: [id number] Dextrose (D5w) 1,000 mls @ 100 mls/hr IV .Q10H BARBARA Stop: 07/08/19 20:14 Last Admin: 06/08/19 21:48 Dose: 100 mls/hr Documented by: [id number] Insulin Human Regular 250 (units/ Sodium Chloride) 250 mls @ 6 mls/hr IV .Q24H BARBARA; Protocol Stop: 07/08/19 20:29 Last Admin: 06/08/19 21:48 Dose: 6 units/hr, 6 mls/hr Documented by: [id number] Cosigned by: [id number] Insulin Aspart (Novolog Flexpen) 0 units SC ACHS BARBARA Stop: 07/08/19 20:59 Last Admin: 06/08/19 21:51 Dose: Not Given Documented by: [id number] Cosigned by: [id number] Levetiracetam (Keppra) 1,000 mg PO Q12 BARBARA Stop: 07/08/19 20:59 Last Admin: 06/08/19 22:04 Dose: 1,000 mg Documented by: [id number] Rivaroxaban (Xarelto) 20 mg PO HS BARBARA Stop: 07/08/19 20:59 Last Admin: 06/08/19 22:04 Dose: 20 mg Documented by: [id number] Silver Sulfadiazine (Silvadene 1% 50gm) 1 appln TOP BID BARBARA Stop: 07/08/19 20:59 Last Admin: 06/08/19 22:02 Dose: 1 appln Documented by: [id number] Discontinued Medications Albuterol (Duoneb) 3 ml NEB NOW STA Stop: 06/08/19 15:02 Last Admin: 06/08/19 15:24 Dose: 3 ml Documented by: [id number] Sodium Chloride (Nss 1000ml) 2,000 mls @ 999 mls/hr IV .Q2H1M ONE Stop: 06/08/19 14:10 Last Infusion: 06/08/19 14:56 Dose: 0 mls/hr Documented by: [id number] Admin: 06/08/19 12:52 Dose: 999 mls/hr Documented by: [id number] Acetaminophen (Ofirmev) 1,000 mg in 100 mls @ 400 mls/hr IV NOW STA Stop: 06/08/19 12:24 Last Infusion: 06/08/19 14:10 Dose: 0 mls/hr Documented by: [id number] Admin: 06/08/19 13:38 Dose: 400 mls/hr Documented by: [id number] Piperacillin Sod/Tazobactam Sod (Zosyn) 4.5 gm in 120 mls @ 240 mls/hr IV NOW ONE Stop: 06/08/19 12:42 Last Infusion: 06/08/19 14:10 Dose: 0 mls/hr Documented by: [id number] Admin: 06/08/19 13:39 Dose: 240 mls/hr Documented by: [id number] Vancomycin HCl 1,500 mg/ (Sodium Chloride) 530 mls @ 200 mls/hr IV NOW ONE Stop: 06/08/19 14:42 Last Infusion: 06/08/19 17:13 Dose: 0 mls/hr Documented by: [id number] Admin: 06/08/19 14:10 Dose: 200 mls/hr Documented by: [id number] Insulin Aspart (Novolog Flexpen) 8 units SC NOW STA Stop: 06/08/19 16:02 Last Admin: 06/08/19 17:21 Dose: 8 units Documented by: [id number] Cosigned by: [id number] Insulin Aspart (Novolog Flexpen) 10 units SC 2030 ONE Stop: 06/08/19 20:31 Last Admin: 06/08/19 21:50 Dose: 10 units Documented by: [id number] Cosigned by: [id number] Insulin Glargine (Lantus Solostar Pen) 15 units SC 2100 ONE Stop: 06/08/19 21:01 Last Admin: 06/08/19 21:50 Dose: 15 units Documented by: [id number] Cosigned by: [id number] Ioversol (Optiray 320 100ml) 93 ml IV ONCE PRN PRN Reason: Interaction Checking Stop: 06/12/19 14:32 Last Admin: 06/08/19 14:34 Dose: 93 ml Documented by: [id number] Medical Decision Making Differential Diagnosis Differential diagnosis includes etiologies such as sepsis, UTI, pneumonia, metabolic, electrolyte abnormalities, cardiac sources, intracerebral event, toxicologic, neurologic, as well as others were entertained. Medical Records Attestation: I reviewed the patient's medical records. Home Medications Current Medication List: was personally reviewed by me Laboratory Data Attestation: I reviewed the patient's lab results. Result diagrams: 06/08/19 13:03 06/08/19 19:43 Lab Results 06/08/19 06/08/19 06/08/19 Range/Units 12:50 13:03 13:03 WBC 11.06 H (4.8-10.8) K/uL RBC 4.31 L (4.7-6.1) M/uL Hgb 13.8 L (14.0-18.0) g/dL Hct 44.3 (42-52) % MCV 102.8 H (80-100) fL MCH 32.0 (25-34) pg MCHC 31.2 L (32-36) g/dL RDW Std Deviation 55.6 H (36.4-46.3) fL RDW Coeff of Nick 14.7 H (11.5-14.5) % Plt Count 198 (130-400) K/uL MPV 12.0 H (7.4-10.4) fL Immature Gran % (Auto) 0.2 % Neut % (Auto) 75.6 % Lymph % (Auto) 13.8 % Gregory % (Auto) 9.9 % Eos % (Auto) 0.2 % Baso % (Auto) 0.3 % Immature Gran # (Auto) 0.02 (0.00-0.02) K/uL Neut # (Auto) 8.36 H (1.4-6.5) K/uL Lymph # (Auto) 1.53 (1.2-3.4) K/uL Gregory # (Auto) 1.10 H (0.11-0.59) K/uL Eos # (Auto) 0.02 (0-0.5) K/uL Baso # (Auto) 0.03 (0-0.2) K/uL PT 10.1 (9.0-12.0) Seconds INR 1.0 (0.9-1.1) APTT 22.3 (21.0-31.0) Seconds PTT Ratio 0.8 VBG pH (7.36-7.41) VBG pCO2 (38-50) mmHg VBG pO2 mmHg VBG HCO3 mmol/L VBG O2 Saturation % VBG Base Excess mEq/L Barometric Pressure mm/Hg Sodium (136-145) mmol/L Potassium (3.5-5.1) mmol/L Chloride (98-107) mmol/L Carbon Dioxide (21-32) mmol/L Anion Gap (3-11) BUN (7-18) mg/dl Creatinine (0.6-1.4) mg/dl Est Cr Clr Drug Dosing ml/min Est GFR ( Amer) Est GFR (Non-Af Amer) BUN/Creatinine Ratio (10-20) Glucose (70-99) mg/dl POC Glucose (70-99) Osmolality (280-300) mOsm/kg Lactate (0.4-2.0) mmol/L Calcium (8.5-10.1) mg/dl Phosphorus (2.5-4.9) mg/dl Magnesium (1.8-2.4) mg/dl Total Bilirubin (0.2-1) mg/dl Direct Bilirubin (0-0.2) mg/dl AST (15-37) U/L ALT (12-78) U/L Alkaline Phosphatase (45-117) U/L Total Protein (6.4-8.2) gm/dl Albumin (3.4-5.0) gm/dl Globulin (2.5-4.0) gm/dl Albumin/Globulin Ratio (0.9-2) Beta-Hydroxybutyric Acd (0.2-2.81) mg/dl Urine Color Yellow Urine Appearance Cloudy A (Clear) Urine pH 5.0 (4.5-7.5) Ur Specific [place] 1.041 H (1.000-1.030) Urine Protein Negative (Negative) Urine Glucose (UA) 3+ H (Negative) Urine Ketones Negative (Negative) Urine Blood 1+ H (Negative) Urine Nitrite Negative (Negative) Urine Bilirubin Negative (Negative) Urine Urobilinogen Negative (Negative) Ur Leukocyte Esterase Negative (Negative) Urine RBC 0-4 (0-4) /hpf Urine WBC 5-10 H (0-5) /hpf Ur Epithelial Cells 0-5 (0-5) /lpf Amorphous Sediment Present A (None Prsent) Urine Bacteria 1+ H (Negative) Carbamazepine (4-12) mcg/ml 06/08/19 06/08/19 06/08/19 Range/Units 13:03 13:03 13:03 WBC (4.8-10.8) K/uL RBC (4.7-6.1) M/uL Hgb (14.0-18.0) g/dL Hct (42-52) % MCV (80-100) fL MCH (25-34) pg MCHC (32-36) g/dL RDW Std Deviation (36.4-46.3) fL RDW Coeff of Nick (11.5-14.5) % Plt Count (130-400) K/uL MPV (7.4-10.4) fL Immature Gran % (Auto) % Neut % (Auto) % Lymph % (Auto) % Gregory % (Auto) % Eos % (Auto) % Baso % (Auto) % Immature Gran # (Auto) (0.00-0.02) K/uL Neut # (Auto) (1.4-6.5) K/uL Lymph # (Auto) (1.2-3.4) K/uL Gregory # (Auto) (0.11-0.59) K/uL Eos # (Auto) (0-0.5) K/uL Baso # (Auto) (0-0.2) K/uL PT (9.0-12.0) Seconds INR (0.9-1.1) APTT (21.0-31.0) Seconds PTT Ratio VBG pH 7.30 L (7.36-7.41) VBG pCO2 61 H (38-50) mmHg VBG pO2 62 mmHg VBG HCO3 29 mmol/L VBG O2 Saturation 88.5 % VBG Base Excess 1.2 mEq/L Barometric Pressure 730.5 mm/Hg Sodium 157 H* (136-145) mmol/L Potassium 3.9 (3.5-5.1) mmol/L Chloride 122 H (98-107) mmol/L Carbon Dioxide 29 (21-32) mmol/L Anion Gap 7.0 (3-11) BUN 43 H (7-18) mg/dl Creatinine 1.34 (0.6-1.4) mg/dl Est Cr Clr Drug Dosing 57.9 ml/min Est GFR ( Amer) 65.8 Est GFR (Non-Af Amer) 56.8 BUN/Creatinine Ratio 32.1 H (10-20) Glucose 477 H* (70-99) mg/dl POC Glucose (70-99) Osmolality (280-300) mOsm/kg Lactate 4.5 H* (0.4-2.0) mmol/L Calcium 8.5 (8.5-10.1) mg/dl Phosphorus 3.7 (2.5-4.9) mg/dl Magnesium 2.5 H (1.8-2.4) mg/dl Total Bilirubin 0.2 (0.2-1) mg/dl Direct Bilirubin < 0.1 (0-0.2) mg/dl AST 8 L (15-37) U/L ALT 21 (12-78) U/L Alkaline Phosphatase 83 (45-117) U/L Total Protein 6.8 (6.4-8.2) gm/dl Albumin 2.8 L (3.4-5.0) gm/dl Globulin 4.0 (2.5-4.0) gm/dl Albumin/Globulin Ratio 0.7 L (0.9-2) Beta-Hydroxybutyric Acd 2.35 (0.2-2.81) mg/dl Urine Color Urine Appearance (Clear) Urine pH (4.5-7.5) Ur Specific [place] (1.000-1.030) Urine Protein (Negative) Urine Glucose (UA) (Negative) Urine Ketones (Negative) Urine Blood (Negative) Urine Nitrite (Negative) Urine Bilirubin (Negative) Urine Urobilinogen (Negative) Ur Leukocyte Esterase (Negative) Urine RBC (0-4) /hpf Urine WBC (0-5) /hpf Ur Epithelial Cells (0-5) /lpf Amorphous Sediment (None Prsent) Urine Bacteria (Negative) Carbamazepine (4-12) mcg/ml 06/08/19 06/08/19 06/08/19 Range/Units 13:03 13:03 15:12 WBC (4.8-10.8) K/uL RBC (4.7-6.1) M/uL Hgb (14.0-18.0) g/dL Hct (42-52) % MCV (80-100) fL MCH (25-34) pg MCHC (32-36) g/dL RDW Std Deviation (36.4-46.3) fL RDW Coeff of Nick (11.5-14.5) % Plt Count (130-400) K/uL MPV (7.4-10.4) fL Immature Gran % (Auto) % Neut % (Auto) % Lymph % (Auto) % Gregory % (Auto) % Eos % (Auto) % Baso % (Auto) % Immature Gran # (Auto) (0.00-0.02) K/uL Neut # (Auto) (1.4-6.5) K/uL Lymph # (Auto) (1.2-3.4) K/uL Gregory # (Auto) (0.11-0.59) K/uL Eos # (Auto) (0-0.5) K/uL Baso # (Auto) (0-0.2) K/uL PT (9.0-12.0) Seconds INR (0.9-1.1) APTT (21.0-31.0) Seconds PTT Ratio VBG pH (7.36-7.41) VBG pCO2 (38-50) mmHg VBG pO2 mmHg VBG HCO3 mmol/L VBG O2 Saturation % VBG Base Excess mEq/L Barometric Pressure mm/Hg Sodium (136-145) mmol/L Potassium (3.5-5.1) mmol/L Chloride (98-107) mmol/L Carbon Dioxide (21-32) mmol/L Anion Gap (3-11) BUN (7-18) mg/dl Creatinine (0.6-1.4) mg/dl Est Cr Clr Drug Dosing ml/min Est GFR ( Amer) Est GFR (Non-Af Amer) BUN/Creatinine Ratio (10-20) Glucose (70-99) mg/dl POC Glucose 323 H* (70-99) Osmolality 364 H* (280-300) mOsm/kg Lactate (0.4-2.0) mmol/L Calcium (8.5-10.1) mg/dl Phosphorus (2.5-4.9) mg/dl Magnesium (1.8-2.4) mg/dl Total Bilirubin (0.2-1) mg/dl Direct Bilirubin (0-0.2) mg/dl AST (15-37) U/L ALT (12-78) U/L Alkaline Phosphatase (45-117) U/L Total Protein (6.4-8.2) gm/dl Albumin (3.4-5.0) gm/dl Globulin (2.5-4.0) gm/dl Albumin/Globulin Ratio (0.9-2) Beta-Hydroxybutyric Acd (0.2-2.81) mg/dl Urine Color Urine Appearance (Clear) Urine pH (4.5-7.5) Ur Specific [place] (1.000-1.030) Urine Protein (Negative) Urine Glucose (UA) (Negative) Urine Ketones (Negative) Urine Blood (Negative) Urine Nitrite (Negative) Urine Bilirubin (Negative) Urine Urobilinogen (Negative) Ur Leukocyte Esterase (Negative) Urine RBC (0-4) /hpf Urine WBC (0-5) /hpf Ur Epithelial Cells (0-5) /lpf Amorphous Sediment (None Prsent) Urine Bacteria (Negative) Carbamazepine 8.2 (4-12) mcg/ml Imaging Data Radiologist's Impression: Radiology results as stated below per my review and the radiologist's interpretation: XR chest 1V portable CLINICAL HISTORY: Sepsis. COMPARISON STUDY: Chest radiograph March 27, 2019. Chest CT November 25, 2017. FINDINGS: Lung volumes are normal. Lungs are clear. There is no pneumothorax or pleural effusion. Cardiac size is normal. Mediastinal contours are normal. There is no evidence for pulmonary edema. Incidental note is made of several old right rib fractures. IMPRESSION: No acute cardiopulmonary findings. Electronically signed by: Ulysses Barron M.D. 06/08/2019 12:[address] abd pelvis IV con only CT DOSE: 942.64 mGycm HISTORY: Dyspnea sepsis TECHNIQUE: Multiaxial CT images of the abdomen and pelvis were performed following the use of intravenous contrast. A dose lowering technique was utilized adhering to the principles of ALARA. COMPARISON STUDY: 03/27/2019 FINDINGS: Interval development of significant peribronchial thickening of the lung bases. Nodular type atelectasis left lung base. 2. Nodularity is not felt to be present given the short interval development of this finding. Small focal area of consolidative change posterior costal phrenic angle on the left is 2 cm. Mild fatty replacement of the liver. Probable small gallstone versus gallbladder polyp. Satisfactory position of PEG tube. Left kidney is absent. Pancreas is unremarkable. Nonobstructive bowel pattern. Normal appendix. Grace catheter catheter is present within a collapsed bladder. No free fluid within the pelvic cul-de-sac. IMPRESSION: 1. No acute process in the abdomen or pelvis.. 2. PEG tube in good position. 3. Nonobstructive bowel pattern. 4. Considerable peribronchial thickening of the lower lungs bilaterally with evidence for focal consolidative/atelectatic change posterior left costophrenic angle. The above report was generated using voice recognition software. It may contain grammatical, syntax or spelling errors. Electronically signed by: Winston Lozano M.D. 06/08/2019 2:49 PM ECG Data Attestation: I personally reviewed and interpreted this ECG as follows: Indication: other (lethargic) Rate (beats per minute): 109 Rhythm: sinus tachycardia Findings: + other (normal axis, QT-c 527); no acute ischemic change Blood Pressure Blood Pressure Findings: Normal blood pressure Blood Pressure Disposition: did not require urgent referral MDM Narrative The patient is a 63-year-old gentleman with a comp gated past medical history of CVA, nonverbal at baseline and 100% dependent for his mobility who presents emergency department from his half-way facility, [facility] with fevers, depressed mental status and elevated glucose in the 600s per hpi. On arrival patient is ill-appearing, febrile to 38.0, tachycardic in the 110s and vital signs otherwise stable. Patient appears clinically dry. He has wheezes and rhonchi. Mild erythema and warmth across the lower abdomen with scattered superficial ulcers. EKG without overt acute ischemia. Chest x-ray negative for acute process. WBC 11. H/H 13.8/44.3 and platelets within normal limits. Glucose 477 on initial chemistry down from 600s at [facility] after 1 L of IV fluids and regular insulin provided prior to arrival. Glucose 477 on initial chemistry down from 600s at [facility] after 1 L of IV fluids and regular insulin provided prior to arrival. Lactate 4.5 however chemistry without gap acidosis. VBG with acidemia with pH of 7.3 with pCO2 of 61. Sodium 157 corrects to 163, potassium 3.9, chloride 122 with BUN 43 and creatinine of 1.34: BUN/creatinine> 30, consistent with the patient's clinically dry appearance. Free water deficit ~7.5L. Upon administration of additional 2 L of normal saline glucose down to the 320s. Serum Osms were elevated in the 360s again consistent with the patient's free water deficit. CT abdomen pelvis negative for acute intra-abdominal process however does demonstrate considerable peribronchial thickening in the lower lungs bilaterally as well as a focal consolidation in the left base that is suspicious for aspiration pneumonia. Cath UA with 5-10 WBCs and 1+ bacteria. Patient treated empirically with Zosyn and vancomycin on arrival. Case was d/w LYDIA Wood PAC, [place] team will evaluate the patient for admission. Impression & Plan Sepsis, Aspiration pneumonia, Acidemia, Hypernatremia, Elevated lactic acid level Critical Care Time Critical Care Time: Yes Total Critical Care Time: 95 I have personally spent greater than 95 minutes of critical care time in the dir ect management of this patient. This includes bedside care, interpretation of diagnostic studies, and testing, discussion with consultants, patient, and family members, and other required patient management activities. This 95 minutes is in excess of all separately billable procedures. Discharge Plan Visit Data *Final* Discharge Date/Time: 06/08/19 18:17 Chief Complaint: Illness Stated Complaint: illness/ poss. sepsis ED Provider: Festus An Discharge Problem: Sepsis, Aspiration pneumonia, Acidemia, Hypernatremia, Elevated lactic acid level Patient Disposition: Admitted As Inpatient Discharge Instructions Interventions: ED Discharge Assessment Last Done: 06/08/19 18:17 Discharge Problem: Sepsis Qualifiers: Sepsis type: sepsis due to unspecified organism Sepsis acute organ dysfunction status: unspecified Qualified Code(s): A41.9 - Sepsis, unspecified organism Aspiration pneumonia Qualifiers: Aspiration pneumonia type: unspecified Laterality: unspecified laterality Lung location: unspecified part of lung Qualified Code(s): J69.0 - Pneumonitis due to inhalation of food and vomit The scribe's documentation has been prepared under my direction and personally reviewed by me in its entirety. I confirm that the note above accurately reflects all work, treatment, procedures, and medical decision making performed by me.
[2019-06-08] MEDS ORDERED: SENNA 8.6 MG TAB PO PRN (19:42)
[2019-06-08] MEDS ORDERED: ACETAMINOPHEN 650 MG SUPP PR PRN ×2 (19:42)
[2019-06-08] MEDS ORDERED: IBUPROFEN SUSPENSION 100MG/5ML 120ML PO PRN (19:42)
[2019-06-08] MEDS ORDERED: SENOKOT PO PRN (19:42)
[2019-06-08] MEDS ORDERED: NON-FORMULARY MEDICATION (Acetaminophen 650 MG) Feeding Tube PRN (19:42)
[2019-06-08] MEDS ORDERED: IBUPROFEN 100 MG/5 ML UDP PO PRN (19:42)
[2019-06-08] MEDS ORDERED: ALBUT/IPRATROP 3MG/0.5MG NEB 3 ML VIAL INH SCH ×2 (19:42)
[2019-06-08] MEDS ORDERED: guaiFENesin SUGAR FREE 100 MG/5 ML UDC PO SCH (19:42)
[2019-06-08] MEDS ORDERED: ACETAMINOPHEN SOLN 160 MG/5 ML BTL GT PRN (19:42)
[2019-06-08 20:15] LABS: BUN Creatinine Ratio 32.6 (10-20); Calcium 8.5 mg/dl (8.5-10.1); Creatinine Clr Calc Pharmacy 76.8 ml/min; Est GFR (African American) 92.6; Est GFR (Non-African American) 79.9; Potassium 4.4 mmol/L (3.5-5.1)
[2019-06-08] MEDS ORDERED: GLUCAGON FOR INJ 1 MG VIAL IM PRN (20:15)
[2019-06-08] MEDS ORDERED: DEXTROSE 50% 50 ML SYRINGE IV PRN (20:15)
[2019-06-08] MEDS ORDERED: GLUCOSE 10 TABS/TUBE PO PRN (20:15)
[2019-06-08] MEDS ORDERED: CARBOHYDRATES FOR HYPOGLYCEMIA PO PRN (20:15)
[2019-06-08] MEDS ORDERED: GLUCOSE 40% GEL 15 GM TUBE PO PRN (20:15)
[2019-06-08] MEDS ORDERED: PHARMACY GLYCEMIC MGMT CONSULT PRN (20:20)
[2019-06-08] MEDS ORDERED: INSULIN REGULAR 250 UNITS in SODIUM CHLORIDE 0.9% 247.5 ML IV SCH (20:30)
[2019-06-08] MEDS ORDERED: INSULIN ASPART 100 UNITS/ML 3 ML PEN SC ONE (20:30)
--- NOTE | 2019-06-08 20:56 | Pharmacy Report ---
Pharmacy Abx Initial Consult - Date of Service June 08, 2019 - Pharmacy Dosing Scope Date of Consult: 06/08/19 Consultation requested by: Dr. Arreguin Pharmacy is consulted to initiate Vancomycin/Zosyn IV dosing therapy, order appropriate labs and adjust drug dose/frequency. - Subjective The patient is a 63 year old M admitted on 06/08/19 17:44. - Objective Height: 5 ft 9 in Weight: 76 kg (BMI 24.7) Vital Signs (Past 12hrs): Vital Signs Temp Pulse Pulse Resp BP BP Pulse Ox 06/08/19 18:45 36.8 C 85 87 22 112/75 96 06/08/19 18:17 84 16 118/76 96 06/08/19 17:36 78 18 126/73 98 06/08/19 15:25 88 18 96 06/08/19 15:14 37.3 C 89 18 119/70 97 06/08/19 13:38 101 H 18 121/86 96 06/08/19 12:15 38 C H 109 H 16 127/81 94 Lab Results (24hrs): Laboratory Tests (24 Hours) 06/08/19 06/08/19 06/08/19 19:43 13:03 13:03 WBC 11.06 H Neut # (Auto) 8.36 H Creatinine 1.01 1.34 Est Cr Clr Drug Dosing 76.8 57.9 Micro Results: 06/08/19 13:20 Aerobic Blood Culture - Pending Blood Anaerobic Blood Culture - Pending 06/08/19 13:03 Aerobic Blood Culture - Pending Blood Anaerobic Blood Culture - Pending - Risk Factors for Resistance * Resident in a prison or extended-care facility - Assessment & Plan Assessment 63 year old M admitted for sepsis secondary to pneumonia, likely aspiration which patient has had in past. Considerable peribronchial thickening of lower lungs bilaterally. Plan Vancomycin/Zosyn for treatment of pneumonia Vancomycin IV * Estimated PK Parameters: Vd 0.7 L/kg, Mark 0.068 hr-1, t1/2 10.2 hr * Loading dose: 1500 mg (20 mg/kg) * Maintenance dose: 1000 mg IV (13 mg/kg) every 12 hours * Goal trough level for pneumonia : 15 to 20 mcg/mL * Trough level ordered for 06/10/19 @1330 Pharmacy will continue to follow and will adjust dose/frequency as necessary. Thank you.
[2019-06-08] MEDS ORDERED: CARBAMAZEPINE 100 MG Feeding Tube SCH (21:00)
[2019-06-08] MEDS ORDERED: RIVAROXABAN 20 MG TAB PO SCH (21:00)
[2019-06-08] MEDS ORDERED: LACTOBACILLUS ACIDOPHILUS Feeding Tube SCH (21:00)
[2019-06-08] MEDS ORDERED: CARBAMAZEPINE 400 MG Feeding Tube SCH (21:00)
[2019-06-08] MEDS ORDERED: INSULIN GLARGINE SOLOSTAR 100 UNITS/ML 3 ML PEN SC ONE (21:00)
[2019-06-08] MEDS ORDERED: ATORVASTATIN 20 MG TAB NG SCH (21:00)
[2019-06-08] MEDS ORDERED: SILVER SULFADIAZINE 1% CR 50 GM JAR TOP SCH (21:00)
[2019-06-08] MEDS ORDERED: INSULIN GLARGINE SOLOSTAR 100 UNITS/ML 3 ML PEN SQ SCH ×2 (21:00)
[2019-06-08] MEDS: DEXTROSE 5% 1,000 ML IV SCH (21:48)
[2019-06-08] MEDS: INSULIN ASPART 100 UNITS/ML 3 ML PEN SC SCH (21:51)
[2019-06-08] MEDS ORDERED: BUDESONIDE 0.5 MG/2 ML VIAL (PULMICORT) INH SCH (22:00)
[2019-06-08] MEDS: SILVER SULFADIAZINE 1% CR 50 GM JAR TOP SCH (22:02)
[2019-06-08] MEDS: CARBAMAZEPINE 100 MG CHEW TAB PO SCH (22:04)
[2019-06-08] MEDS: PIPERACILLIN/TAZOBACTAM 3.375 GM in DEXTROSE 5% 100 ML IV SCH (22:04)
[2019-06-08] MEDS: levETIRAcetam ORAL SOLN 100MG/ML PO SCH (22:04)
[2019-06-08] MEDS: RIVAROXABAN 20 MG TAB PO SCH (22:04)
[2019-06-08] MEDS: ATORVASTATIN 20 MG TAB PEG SCH (22:04)
[2019-06-08] MEDS: BUDESONIDE 0.5 MG/2 ML VIAL (PULMICORT) INH SCH (23:02)
[2019-06-09] MEDS: guaiFENesin SUGAR FREE 100 MG/5 ML UDC GT SCH ×4 (00:08→17:48)
[2019-06-09 00:23] LABS: BUN Creatinine Ratio 31.6 (10-20); Calcium 8.6 mg/dl (8.5-10.1); Creatinine Clr Calc Pharmacy 83.4 ml/min; Est GFR (African American) 102.3; Est GFR (Non-African American) 88.3; Potassium 3.3 mmol/L (3.5-5.1)
[2019-06-09] MEDS ORDERED: VANCOMYCIN HCL 1,000 MG in SODIUM CHLORIDE 0.9% 250 ML IV SCH (02:00)
[2019-06-09 04:37] LABS: BUN Creatinine Ratio 32.7 (10-20); Calcium 8.3 mg/dl (8.5-10.1); Est GFR (African American) 111.7; Est GFR (Non-African American) 96.4; Potassium 3.3 mmol/L (3.5-5.1)
[2019-06-09] MEDS: DEXTROSE 5% 1,000 ML IV SCH ×2 (06:29→17:47)
[2019-06-09] MEDS: PIPERACILLIN/TAZOBACTAM 3.375 GM in DEXTROSE 5% 100 ML IV SCH ×3 (06:29→21:09)
[2019-06-09] MEDS: BUDESONIDE 0.5 MG/2 ML VIAL (PULMICORT) INH SCH ×3 (06:58→19:50)
[2019-06-09] MEDS: ALBUT/IPRATROP 3MG/0.5MG NEB 3 ML VIAL NEB SCH ×4 (06:58→19:50)
[2019-06-09] MEDS ORDERED: CITALOPRAM 40 MG TAB PO SCH (09:00)
[2019-06-09] MEDS ORDERED: ASPIRIN 81 MG CHEW GT SCH (09:00)
[2019-06-09] MEDS ORDERED: ASPIRIN 81 MG CHEW PEG SCH (09:00)
[2019-06-09] MEDS ORDERED: INSULIN GLARGINE SOLOSTAR 100 UNITS/ML 3 ML PEN SC ONE ×2 (09:00→21:00)
[2019-06-09 09:03] LABS: BUN Creatinine Ratio 31.2 (10-20); Calcium 8.3 mg/dl (8.5-10.1); Creatinine Clr Calc Pharmacy 100.7 ml/min; Est GFR (African American) 113.5; Est GFR (Non-African American) 97.9; Potassium 3.2 mmol/L (3.5-5.1)
[2019-06-09] MEDS: INSULIN ASPART 100 UNITS/ML 3 ML PEN SC SCH ×4 (09:07→21:11)
[2019-06-09] MEDS ORDERED: PNEUMOCOCCAL POLYSACCHARIDES 25 MCG/0.5 ML VIAL/SYR IM ONE (09:30)
[2019-06-09] MEDS ORDERED: PNEUMOCOCCAL ADMINISTRATION CHARGE ONE (09:30)
[2019-06-09] MEDS ORDERED: POTASSIUM CHLORIDE 20 MEQ/15 ML UDC PO ONE (09:30)
--- NOTE | 2019-06-09 09:43 | Pharmacy Report ---
Glycemic Control Consultation - Date of Service June 09, 2019 - Scope Scope: Glycemic Pharmacist consulted by ZAYRA Frankel on 06/08/19 for glycemic control and to write orders per [facility] inpatient glycemic control protocol - Objective Weight: 77.9 kg Accuchecks BSG (last 24hrs): 06/08/19 06/08/19 06/08/19 13:03 15:12 19:43 Glucose 477 H* 221 H POC Glucose 323 H* 06/08/19 06/08/19 06/08/19 21:55 23:04 23:38 Glucose 202 H POC Glucose 192 H 196 H 06/09/19 06/09/19 06/09/19 00:00 01:08 03:07 Glucose POC Glucose 168 H 166 H 116 H 06/09/19 06/09/19 06/09/19 03:40 04:05 05:07 Glucose 94 POC Glucose 89 92 06/09/19 06/09/19 06/09/19 06:05 07:06 07:45 Glucose 137 H POC Glucose 127 H 121 H 06/09/19 06/09/19 08:03 09:08 Glucose POC Glucose 138 H 113 H Laboratory Data (last 24hrs): 06/08/19 06/08/19 06/08/19 13:03 13:03 19:43 Potassium 3.9 4.4 Carbon Dioxide 29 32 Anion Gap 7.0 4.0 Creatinine 1.34 1.01 Est Cr Clr Drug Dosing 57.9 76.8 Osmolality 364 H* Beta-Hydroxybutyric Acd 2.35 06/08/19 06/09/19 06/09/19 23:38 03:40 07:45 Potassium 3.3 L D 3.3 L 3.2 L Carbon Dioxide 32 33 H 32 Anion Gap 1.0 L 2.0 L 3.0 Creatinine 0.93 0.80 0.77 Est Cr Clr Drug Dosing 83.4 97.0 100.7 Osmolality Beta-Hydroxybutyric Acd - Recent Pertinent Medications Outpatient Anti-diabetic Regimen: * Metformin 1g PO BID * Lantus 15 units HS * A1c = 8.6 % 05/08/19 The patient is currently receiving: * Basal insulin: Lantus 15 units SQ HS * Insulin drip - Running at 5.8units/hr at 0700 --> down to 2.4units/hr now at 1230 Risk Factors for Insulin Resistance: * Infection: IV Vancomycin & Zosyn * IVF: D5@100cc/hr * Diet: NPO - Assessment & Plan Assessment & Plan: ASSESSMENT: * 63 year old male admitted with sepsis secondary to pneumonia, on IV Vancomycin and Zosyn, [facility] resident, H CVA, resulting in severe functional deficit -aphasia, hemiplegia and hemiparesis, nonverbal, PEG tube in place. * Type 2 diabetic, blood sugars in 400s on admission, started on IV insulin drip last night, rates running around 4-6 units/hr until 10am, patient also with D5 running for hypernatremia. Blood sugars have been at goal all of today, with drip held from 4-6am per protocol. * Will give another dose of Lantus in anticipation for drip discontinuation but continue insulin drip per protocol (unless drip turns itself off) while on dextrose infusion at this time. (Done at 1000). * Blood sugar no 96mg/dl with insulin drip restarted at 2.4units/hr. Will discontinue IV insulin at this time and change to Q4H checks to prevent hypoglycemia. PLAN FOR INPATIENT GLYCEMIC CONTROL: * IV insulin infusion per moderate stress protocol * Goal Range 120 - 200 mg/dl * Discontinue at 1300 today * Holding outpatient oral diabetes medications * Basal insulin * Lantus 15 units SQ BID today - further dosing tomorrow Once patient is off of insulin drip will begin: * Novolog Q4H * CF: 20mg/dl/unit * CR: 1 unit per 7 grams CHO Consumed * Please note that the plan above was derived based on current level of insulin resistance and hospital stress. These recommendations are appropriate for inpatient admission only. Plan of care upon discharge will need to be reassessed to avoid potential outpatient hypo/hyperglycemia. Thank you.
--- NOTE | 2019-06-09 10:04 | Pharmacy Report ---
Pharmacy Abx Dose Short Note - Date of Service June 09, 2019 - Assessment & Plan Assessment 63 year old M receiving IV Vancomycin and Zosyn for treatment of suspected pneumonia Day # 2 of antimicrobial therapy Patient resides [place] [facility] and has a pertinent PMHx of COPD and CKDII Patient has a positive MRSA nasal swab as well as h/x MRSA abdominal wall infection Patient's renal function has significantly improved: SCr 1.01 mg/dL -----> 0.77 mg/dL Plan Vancomycin * Given improvement in renal function, will prophylactically increase vancomycin dose * Change to 1250 mg IV every 10 hours * Goal trough level for pneumonia: 15 to 20 mcg/mL * Trough level ordered for: 06/10/19 prior to the 3rd of this dose (5th dose total) Pharmacy will continue to follow and will adjust dose/frequency as necessary. Thank you.
[2019-06-09] MEDS: LACTOBACILLUS ACIDOPHILUS 1 GM PACK GT SCH ×3 (10:23→16:57)
[2019-06-09] MEDS: TRAZODONE HCL 50 MG TAB PEG SCH ×2 (10:23→17:48)
[2019-06-09] MEDS: ASPIRIN 81 MG CHEW PEG SCH (10:24)
[2019-06-09] MEDS: CITALOPRAM 40 MG TAB PEG SCH (10:25)
[2019-06-09] MEDS: CARBAMAZEPINE 100 MG CHEW TAB PO SCH ×3 (10:25→21:12)
[2019-06-09] MEDS: SILVER SULFADIAZINE 1% CR 50 GM JAR TOP SCH ×2 (11:15→21:10)
[2019-06-09] MEDS: levETIRAcetam ORAL SOLN 100MG/ML PO SCH ×2 (11:15→21:10)
[2019-06-09] MEDS: TUBE FEEDING WATER FLUSH GT SCH ×4 (11:15→21:12)
--- NOTE | 2019-06-09 11:22 | Palliative Care Consultation ---
Date of Consultation June 09, 2019 Assessment & Plan (1) Goals of care, counseling/discussion: This is a 63 year old unfortunate male who was transferred to the [facility] from [facility] for persistent fevers. This patient has a PMH that includes a CVA with significant deficits including hemiparesis, hemiplegia, and is non-verbal with expressive and receptive aphasia. He also has a chronic RUQ PEG tube in place. Additional PMH includes: Asthma, COPD, GERD, DM2, HTN, PVD, CKD Stage II, and a DVT. The patients CXR showed possible atelectesis. His Lactic Acid was 4.5 on admission and his WBC was 12.07 for which he was started on IV Vancomycin and IV Zosyn, along with IV fluids to assist with correcting his Na+ level, which was as high as 160 on admission, now down to 148. Additionally, a wound culture was obtained at [facility] and positive for MRSA. The patient does have a POLST form that was completed in 2018 indicating DNR/DNI, Comfort Measures only, trial abx, and OK for artificial nutrition and hydration. Palliative Care was consulted for a goals of care discussion with the patients sister and POA Trudy. -I met the patient in his room. The patient opened his eyes, tried to speak some words, all nonsensical and not incomprehensible. Patient did wiggle his left toes on command. -Per nursing and Hospitalist, patient was combative earlier in the day. Patient was cooperative during exam with me. -Patient unable to participate in any goals of care discussion due to cognitive ability, patient does have a sister, Trudy who is his POA. I reached her at [phone]. We talked at length and she informed me that he was born almost 3 months early and has had cognitive intellect challenges for his entire life, requiring her to care for him for a large portion of his teaching young. She taught him how to ride a bike, rollerskate, etc., which are things nobody thought he would be able to accomplish. -The patients sister is 15 years older than him and based on our conversation, has a very close motherly relationship with him, which may pose challenge with discontinuing tube feeds, etc in the future. -We discussed his recurrent hospitalizations and chronic aspiration and overall deconditioning. 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 -She confirmed she is OK with him to receive IV antibiotics and tube feedings if tolerating. She did confirm she DOES NOT want him to be intubated or have any aggressive CPR, cardioversion, inotropic gtt, etc. should his respiratory/cardiac drive worsen. -Plan for continued medical treatment at this time. Would be helpful to redo a POLST form in the future to have goals clear. Patient sister did not want to complete this over the phone. -No uncontrolled symptom needs at this time. -PPS: 20%. We will continue to follow. 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 Collaborated with ZAYRA Lugo PE: Patient appears comfortable, NAD HEENT: EOMI Respirations: Unlabored, coarse breath sounds throughout, upper airway secretions CV: Regular rate Abdomen: Soft, nontender, G-tube in place Neuro: Significant cognitive deficits Agree with above note, assessment and plan as per ZAYRA Lugo-will continue to follow and assist patient sister with medical decision making History of Present Illness Reason for Consultation: Goals of care Requesting Physician: Dr. Dillard Attending Physician: Cristian Dillard MD History of Present Illness This is a 63 year old unfortunate male who was transferred to the [facility] from [facility] for persistent fevers. This patient has a PMH that includes a CVA with significant deficits including hemiparesis, hemiplegia, and is non-verbal with expressive and receptive aphasia. He also has a chronic RUQ PEG tube in place. Additional PMH includes: Asthma, COPD, GERD, DM2, HTN, PVD, CKD Stage II, and a DVT. The patients CXR showed possible atelectesis. His Lactic Acid was 4.5 on admission and his WBC was 12.07 for which he was started on IV Vancomycin and IV Zosyn, along with IV fluids to assist with correcting his Na+ level, which was as high as 160 on admission, now down to 148. Addition ally, a wound culture was obtained at [facility] and positive for MRSA. The patient does have a POLST form that was completed in 2018 indicating DNR/DNI, Comfort Measures only, trial abx, and OK for artificial nutrition and hydration. Palliative Care was consulted for a goals of care discussion with the patients sister and Trudy ODONNELL. Please see the Assessment and Plan portion of the chart for additional information. Thank you for involving the Palliative Care Team with this unfortunate patient. We will continue to monitor and assist the patients sister with decision making throughout the hospitalization. Allergies Allergy/AdvReac Type Severity Reaction Status Date / Time bee venom protein (honey bee) Allergy Unknown LISTED ON Verified 06/08/19 13:03 MAR pseudoephedrine Allergy Unknown UNKNOWN Verified 06/08/19 13:03 Home Medications Home Medications Medication Instructions Recorded Confirmed Type Lactobacillus acidophilus 1 cap FEEDING TUBE TID 11/01/18 06/08/19 History Xarelto 20 mg G-TUBE HS 11/01/18 06/08/19 History acetaminophen 650 mg FEEDING TUBE Q8 PRN 11/01/18 06/08/19 History acetaminophen 650 mg DE Q6H PRN 11/01/18 06/08/19 History aspirin 81 mg FEEDING TUBE QAM 11/01/18 06/08/19 History atorvastatin 20 mg FEEDING TUBE HS 11/01/18 06/08/19 History budesonide 0.5 mg INHALATION Q8 11/01/18 06/08/19 History carbamazepine 100 mg FEEDING TUBE HS 11/01/18 06/08/19 History carbamazepine 400 mg FEEDING TUBE BID 11/01/18 06/08/19 History citalopram 40 mg FEEDING TUBE QAM 11/01/18 06/08/19 History guaifenesin 10 ml FEEDING TUBE Q6 11/01/18 06/08/19 History ipratropium-albuterol 3 ml INHALATION Q6 11/01/18 06/08/19 History levetiracetam 10 ml FEEDING TUBE BID 11/01/18 03/25/19 History metformin 1,000 mg FEEDING TUBE BIDM 11/01/18 06/08/19 History trazodone 25 mg FEEDING TUBE BID 11/01/18 06/08/19 History insulin glargine 15 unit SUBCUT HS 11/29/18 06/08/19 History silver sulfadiazine 1 applic TOPICAL BID 03/25/19 06/08/19 History amoxicillin-pot clavulanate 1 tab FEEDING TUBE ONCE 06/08/19 06/08/19 History ibuprofen 400 mg PO Q6H PRN 06/08/19 06/08/19 History sennosides [senna] 8.6 mg FEEDING TUBE BID PRN 06/08/19 06/08/19 History Patient History Medical History History of CVA (cerebrovascular accident) (Acute) 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 COPD (chronic obstructive pulmonary disease) (Acute) Diabetes (Chronic) type 2 HLD (hyperlipidemia) (Chronic) PVD (peripheral vascular disease) CKD (chronic kidney disease) (Chronic) stage 2 Aspiration pneumonia DVT (deep venous thrombosis) Pneumonia (Acute) Aphasia Asthma Conversion disorder with seizures or convulsions Difficulty in walking Epilepsy with status epilepticus GERD (gastroesophageal reflux disease) Gastrostomy infection Generalized muscle weakness 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 History of venous thrombosis and embolism Hypertension Pressure ulcer of right buttock, stage 2 Tinea unguium Unspecified mood [affective] disorder Surgical History Status post insertion of percutaneous endoscopic gastrostomy (PEG) tube Surgical history unknown Family History Other Family history non-contributory Social History Preferred Language: Japanese Communication Ability: Unable Maintenance Job Titles Required: No Beliefs That Will Affect Care: None marital status: Single Current Living Situation: [place] current occupational status: disabled Feels Safe at Home: Yes Smoking Status: Unknown if ever smoked Hx Alcohol Use: No Hx Substance Use: No Review of Systems Review of Systems: Unobtainable due to cognitive status Physical Exam Constitutional: + ill appearing and + physical limitations Eyes: PERRL, conjunctivae normal, anicteric sclerae ENMT: external ear and nose normal, oropharynx normal Neck: trachea midline, no thyromegaly Respiratory: Auscultation: + crackles, + rhonchi and + wheezes (expiratory) Gastrointestinal (Abdomen): normal bowel sounds, soft, nontender, no hepatosplenomegaly RUQ PEG Musculoskeletal: Extremities: + limited ROM of extremities RUE 2/5 RLE 2/5 LUE 0/5 RLE 0/5 Skin: no rashes, warm and dry + crusts, + dry skin and + pallor Psychiatric: Orientation: alert and cooperative; + not oriented to place and + not oriented to time Insight: + severely impaired insight Judgement: + severely impaired judgement Lymphatic: no cervical or axillary lymphadenopathy Results & Data Vital Signs (Past 12 Hours) Vital Signs Temp Pulse Resp BP Pulse Ox 06/09/19 10:42 88 24 96 06/09/19 07:23 36.8 C 94 H 18 108/72 94 06/09/19 07:01 96 H 20 94 06/09/19 04:00 37.1 C 93 H 20 120/84 98 06/08/19 23:20 37.6 C H 98 H 20 125/75 98 PG Care Time/CCT Total # of Minutes Spent Total Time Spent with Patient: Total time spent is greater than 50% in coordination of care (as documented) at patient's floor/unit and/or counseling patient: 70 Time Spent Midlevel Total time spent 70 minutes with > 50% of that time spent assessing the patient, discussing goals of care with the patients sister.
[2019-06-09] MEDS: VANCOMYCIN HCL 1,250 MG in SODIUM CHLORIDE 0.9% 250 ML IV SCH ×2 (13:40→21:09)
[2019-06-09 13:48] LABS: BUN Creatinine Ratio 25.9 (10-20); Calcium 8.4 mg/dl (8.5-10.1); Creatinine Clr Calc Pharmacy 95.8 ml/min; Est GFR (African American) 111.2; Est GFR (Non-African American) 95.9
[2019-06-09 14:25] LABS: Potassium 3.9 mmol/L (3.5-5.1)
[2019-06-09] MEDS: PEPTAMEN 1.5 CAL 1,000 ML BAG PO SCH (14:57)
--- NOTE | 2019-06-09 15:10 | Hospitalist Progress Note ---
Date of Service June 09, 2019 Assessment & Plan (1) Aspiration pneumonia: CXR was clear on admission; however, CT a/p showed bilateral lower lobe pneumonia. - Treating with vanc/Zosyn - MRSA swab was positive on 06/09. - Per report from [facility], he also had a wound swab that was positive for MRSA. (2) Sepsis: Secondary to pneumonia, likely aspiration which patient has had in the past. Lactic acid was 4.5 on admission, ph 7.3, WBCs 11, tachycardic and febrile in the ED. - See above (3) Hypernatremia: Na 163 when corrected for hyperglycemia -> 2.7L free water deficit. Given 2L NSS in the ED. - On D5 -> Na slowly coming down. - Also started free water flushes (4) Type 2 diabetes mellitus with hyperglycemia: A1c was 8.6% in 04/2019. Blood sugar was 477 on admission. Initially on an insulin gtt. - Now on basal-bolus with pharmacy managing. (5) Epilepsy: No seizures inpatient. - Continue carbamazepine, Keppra (6) History of CVA (cerebrovascular accident): Patient is non-verbal with PEG tube. - Continue statin, ASA, Xeralto - Consulted palliative care who spoke with the sister. Present course of action is appropriate with the sister asking for medical therapy, but no escalation of care. No intubation, no pressors, no CPR, no cardioversion. BiPap or CPAP only if the patient tolerates it. (7) DVT prophylaxis: Xeralto, SCDs Subjective Somewhat follows commands. Tries to verbally respond. Review of Systems Review of Systems: Unobtainable due to cognitive status Physical Exam Constitutional: WD/WN, vitals as above + frail appearing, + disheveled, + in distress and + lethargic Eyes: EOM intact bilaterally; no conjunctival abnormality ENMT: external ear and nose normal, oropharynx normal Neck: trachea midline, no thyromegaly normal visual inspection Respiratory: + labored breathing and + uses accessory muscles; no respiratory distress Auscultation: + rhonchi (Throughout, heavy) Cardiovascular: RRR, no murmur, no edema Gastrointestinal (Abdomen): Inspection/Auscultation: abdomen normal to inspection; abdomen not distended Musculoskeletal: no cyanosis or clubbing, extremities motor strength 5/5 Skin: no rashes, warm and dry Neurologic: moves all extremities and awake Psychiatric: Orientation: alert, oriented to person and cooperative Results & Data Vital Signs (Past 12 Hours) Vital Signs Temp Pulse Resp BP Pulse Ox 06/09/19 11:27 36.9 C 91 H 18 100/68 93 06/09/19 10:42 88 24 96 06/09/19 07:23 36.8 C 94 H 18 108/72 94 06/09/19 07:01 96 H 20 94 06/09/19 04:00 37.1 C 93 H 20 120/84 98 PG Care Time/CCT Total # of Minutes Spent Total Time Spent with Patient: Total time spent is greater than 50% in coordination of care (as documented) at patient's floor/unit and/or counseling patient: (1) Sepsis Sepsis acute organ dysfunction status: unspecified Sepsis type: sepsis due to unspecified organism Qualified Code(s): A41.9 - Sepsis, unspecified organism (2) Epilepsy Epilepsy type: unspecified Intractability: not intractable Status epilepticus: without status epilepticus Qualified Code(s): G40.909 - Epilepsy, unspecified, not intractable, without status epilepticus (3) Aspiration pneumonia Aspiration pneumonia type: unspecified Laterality: unspecified laterality Lung location: unspecified part of lung Qualified Code(s): J69.0 - Pneumonitis due to inhalation of food and vomit
[2019-06-09] MEDS: SODIUM CHLORIDE 0.45 % 1,000 ML IV SCH (18:43)
[2019-06-09 20:37] LABS: BUN Creatinine Ratio 21.6 (10-20); Calcium 8.2 mg/dl (8.5-10.1); Creatinine Clr Calc Pharmacy 87.2 ml/min; Est GFR (Non-African American) 92.3; Potassium 4.1 mmol/L (3.5-5.1)
[2019-06-09] MEDS: ATORVASTATIN 20 MG TAB PEG SCH (21:10)
[2019-06-09] MEDS: RIVAROXABAN 20 MG TAB PO SCH (21:10)
[2019-06-10] MEDS: INSULIN ASPART 100 UNITS/ML 3 ML PEN SC SCH ×6 (00:09→20:32)
[2019-06-10] MEDS: guaiFENesin SUGAR FREE 100 MG/5 ML UDC GT SCH ×4 (01:19→16:57)
[2019-06-10] MEDS: TUBE FEEDING WATER FLUSH GT SCH ×6 (02:00→20:33)
[2019-06-10] MEDS: SODIUM CHLORIDE 0.45 % 1,000 ML IV SCH (04:41)
[2019-06-10] MEDS: PIPERACILLIN/TAZOBACTAM 3.375 GM in DEXTROSE 5% 100 ML IV SCH ×3 (05:34→22:23)
[2019-06-10] MEDS: ALBUT/IPRATROP 3MG/0.5MG NEB 3 ML VIAL NEB SCH ×4 (07:02→19:33)
[2019-06-10] MEDS: BUDESONIDE 0.5 MG/2 ML VIAL (PULMICORT) INH SCH ×3 (07:02→23:41)
[2019-06-10] MEDS ORDERED: VANCOMYCIN TROUGH ONE ×2 (07:30→13:30)
[2019-06-10 08:25] LABS: Hematocrit (blood only) 39.7 % (42-52); Hemoglobin 12.1 g/dL (14.0-18.0); Mean Corpuscular Hgb Conc 30.5 g/dL (32-36); Mean Corpuscular Volume 102.8 fL (80-100); Mean Platelet Volume 11.9 fL (7.4-10.4); Platelet Count 146 K/uL (130-400); RDW Coefficient of Variation 13.6 % (11.5-14.5); RDW Standard Deviation 51.2 fL (36.4-46.3); Red Blood Count 3.86 M/uL (4.7-6.1)
[2019-06-10 08:48] LABS: BUN Creatinine Ratio 21.9 (10-20); Calcium 8.5 mg/dl (8.5-10.1); Creatinine Clr Calc Pharmacy 90.2 ml/min; Est GFR (African American) 108.5; Est GFR (Non-African American) 93.6; Magnesium 2.3 mg/dl (1.8-2.4); Potassium 4.3 mmol/L (3.5-5.1)
[2019-06-10] MEDS ORDERED: INSULIN GLARGINE SOLOSTAR 100 UNITS/ML 3 ML PEN SC ONE (09:00)
[2019-06-10] MEDS: TRAZODONE HCL 50 MG TAB PEG SCH ×2 (09:13→17:01)
[2019-06-10] MEDS: levETIRAcetam ORAL SOLN 100MG/ML PO SCH ×2 (09:13→20:32)
[2019-06-10] MEDS: VANCOMYCIN HCL 1,250 MG in SODIUM CHLORIDE 0.9% 250 ML IV SCH ×2 (09:13→17:13)
[2019-06-10] MEDS: SILVER SULFADIAZINE 1% CR 50 GM JAR TOP SCH ×2 (09:14→20:33)
[2019-06-10] MEDS: CITALOPRAM 40 MG TAB PEG SCH (09:14)
[2019-06-10] MEDS: ASPIRIN 81 MG CHEW PEG SCH (09:16)
[2019-06-10] MEDS: LACTOBACILLUS ACIDOPHILUS 1 GM PACK GT SCH ×3 (09:16→16:56)
--- NOTE | 2019-06-10 09:16 | Pharmacy Report ---
Pharmacy Abx Dose Short Note - Date of Service June 10, 2019 - Assessment & Plan Assessment 63 year old M receiving Vancomycin and zosyn for treatment of aspiration pneumonia. Pt is MRSA positive. Day # 3 of antimicrobial therapy. Plan Vancomycin * Trough level of 14.8 mcg/mL is close to therapeutic. Given that vanc dose prior to level was given 1 hour early, trough level drawn 1/2 hour late, and level being prior to Css, will continue current dosing. Expect trough level to reach therapeutic range once at steady state. * Continue dose of 1250 mg IV every 10 hours * Goal trough level for pulm : 15 to 20 mcg/mL * Trough level ordered for: 06/11/19 prior to 6th maintenance dose. Zosyn * Continue 3.375gm q8h Pharmacy will continue to follow and will adjust dose/frequency as necessary. Thank you.
[2019-06-10] MEDS: CARBAMAZEPINE 100 MG CHEW TAB PO SCH ×3 (09:17→20:32)
[2019-06-10] MEDS ORDERED: INSULIN GLARGINE SOLOSTAR 100 UNITS/ML 3 ML PEN SC STA (12:12)
--- NOTE | 2019-06-10 13:10 | Pharmacy Report ---
Pharmacy Glycemic Short Note 2 - Date of Service June 10, 2019 - Glycemic Short BSG Results (Last 24 hours): 06/09/19 06/09/19 06/09/19 12:09 16:14 19:59 Glucose 102 H 242 H POC Glucose 195 H 06/09/19 06/10/19 06/10/19 20:04 00:03 04:15 Glucose POC Glucose 222 H 218 H 206 H 06/10/19 06/10/19 06/10/19 07:23 07:57 11:34 Glucose 268 H POC Glucose 227 H 265 H ASSESSMENT: * Hyperglycemia continues, likely 2/2 to continues tube feeds. Please see plan detailed below PLAN FOR INPATIENT GLYCEMIC CONTROL: * Basal insulin - increased * Lantus will give an additional 10 units this afternoon and increase lantus scale * BSGs less than 200 give 20 units * BSGs >/=200 give 30 units * Bolus insulin - tightened * NovoLog per scale ACHS or Q6hrs while NPO * Goal Range: Low 110 mg/dL - High 140 mg/dL * Correction Factor: 15 mg/dL/unit * Nutritional / Prandial insulin per carb ratio of 1 unit per 5 grams CHO consumed
--- NOTE | 2019-06-10 13:43 | Hospitalist Progress Note ---
Date of Service June 10, 2019 Assessment & Plan (1) Aspiration pneumonia: CXR was clear on admission; however, CT a/p showed bilateral lower lobe pneumonia. - MRSA swab was positive on 06/09. - Per report from [facility], he also had a wound swab that was positive for MRSA. - Treating with vanc/Zosyn -> Will likely need switch to broad abxs on discharge (2) Sepsis: Secondary to pneumonia, likely aspiration which patient has had in the past. Lactic acid was 4.5 on admission, ph 7.3, WBCs 11, tachycardic and febrile in the ED. - See above (3) Hypernatremia: Na 163 when corrected for hyperglycemia -> 2.7L free water deficit. Given 2L NSS in the ED. - On 10/19 NSS until 06/10. Also started free water flushes. - On 06/10, Na down to 152. Holding IV fluids for increasing edema. (4) Type 2 diabetes mellitus with hyperglycemia: A1c was 8.6% in 04/2019. Blood sugar was 477 on admission. Initially on an insulin gtt. - Now on basal-bolus with pharmacy managing. (5) Epilepsy: No seizures inpatient. - Continue carbamazepine, Keppra (6) History of CVA (cerebrovascular accident): Patient is non-verbal with PEG tube. - Continue statin, ASA, Xeralto - Consulted palliative care who spoke with the sister. Present course of action is appropriate with the sister asking for medical therapy, but no escalation of care. No intubation, no pressors, no CPR, no cardioversion. BiPap or CPAP only if the patient tolerates it. - Continue ASA, statin (7) DVT prophylaxis: SHAUNA Arandas (Unclear why on Xarelto - possible DVT in the past?) Subjective Tries to say words, but does not really make intelligible sounds. Review of Systems Review of Systems: All systems reviewed & are unremarkable except as noted in HPI & below Physical Exam Constitutional: WD/WN, vitals as above + frail appearing, + disheveled and + lethargic; not in distress Eyes: EOM intact bilaterally; no conjunctival abnormality ENMT: external ear and nose normal, oropharynx normal Neck: trachea midline, no thyromegaly normal visual inspection Respiratory: no respiratory distress, no labored breathing and does not use accessory muscles Auscultation: + rhonchi (Throughout, heavy) Cardiovascular: RRR, no murmur, no edema Gastrointestinal (Abdomen): Inspection/Auscultation: abdomen normal to inspection; abdomen not distended Musculoskeletal: no cyanosis or clubbing, extremities motor strength 5/5 Skin: + induration (Abdomen with scabs) Neurologic: awake; + does not move all extremities Psychiatric: Orientation: alert; + not oriented to person and + uncooperative Results & Data Vital Signs (Past 12 Hours) Vital Signs Temp Pulse Pulse Resp BP Pulse Ox 06/10/19 11:52 37 C 83 18 97/59 L 90 06/10/19 11:14 73 20 90 06/10/19 07:13 36.9 C 87 18 129/82 94 06/10/19 07:02 89 20 97 06/10/19 04:00 36.4 C L 86 16 126/82 90 PG Care Time/CCT Total # of Minutes Spent Total Time Spent with Patient: Total time spent is greater than 50% in coordination of care (as documented) at patient's floor/unit and/or counseling patient: (1) Aspiration pneumonia Aspiration pneumonia type: unspecified Laterality: unspecified laterality Lung location: unspecified part of lung Qualified Code(s): J69.0 - Pneumonitis due to inhalation of food and vomit (2) Sepsis Sepsis acute organ dysfunction status: unspecified Sepsis type: sepsis due to unspecified organism Qualified Code(s): A41.9 - Sepsis, unspecified organism (3) Epilepsy Epilepsy type: unspecified Intractability: not intractable Status epilepticus: without status epilepticus Qualified Code(s): G40.909 - Epilepsy, unspecified, not intractable, without status epilepticus
[2019-06-10] MEDS: PEPTAMEN 1.5 CAL 1,000 ML BAG PO SCH (17:13)
[2019-06-10] MEDS: RIVAROXABAN 20 MG TAB PO SCH (20:31)
[2019-06-10] MEDS: ATORVASTATIN 20 MG TAB PEG SCH (20:31)
[2019-06-10] MEDS: INSULIN GLARGINE SOLOSTAR 100 UNITS/ML 3 ML PEN SC SCH (20:32)
[2019-06-11] MEDS: TUBE FEEDING WATER FLUSH GT SCH ×6 (02:02→22:30)
[2019-06-11] MEDS: VANCOMYCIN HCL 1,250 MG in SODIUM CHLORIDE 0.9% 250 ML IV SCH ×2 (03:03→14:24)
[2019-06-11] MEDS: INSULIN ASPART 100 UNITS/ML 3 ML PEN SC SCH ×6 (04:00→20:23)
[2019-06-11] MEDS: guaiFENesin SUGAR FREE 100 MG/5 ML UDC GT SCH ×4 (05:58→17:30)
[2019-06-11] MEDS: PIPERACILLIN/TAZOBACTAM 3.375 GM in DEXTROSE 5% 100 ML IV SCH ×3 (05:58→21:44)
[2019-06-11 07:07] LABS: Hematocrit (blood only) 40.1 % (42-52); Mean Corpuscular Hgb Conc 32.4 g/dL (32-36); Mean Corpuscular Volume 98.3 fL (80-100); Mean Platelet Volume 11.7 fL (7.4-10.4); Platelet Count 150 K/uL (130-400); RDW Coefficient of Variation 13.1 % (11.5-14.5); RDW Standard Deviation 46.9 fL (36.4-46.3); Red Blood Count 4.08 M/uL (4.7-6.1)
[2019-06-11] MEDS: BUDESONIDE 0.5 MG/2 ML VIAL (PULMICORT) INH SCH ×3 (07:17→22:49)
[2019-06-11] MEDS: ALBUT/IPRATROP 3MG/0.5MG NEB 3 ML VIAL NEB SCH ×4 (07:17→19:06)
[2019-06-11 07:41] LABS: BUN Creatinine Ratio 22.3 (10-20); Calcium 8.8 mg/dl (8.5-10.1); Creatinine Clr Calc Pharmacy 117.5 ml/min; Est GFR (African American) 120.9; Est GFR (Non-African American) 104.3; Potassium 3.5 mmol/L (3.5-5.1)
[2019-06-11] MEDS: CITALOPRAM 40 MG TAB PEG SCH (09:42)
[2019-06-11] MEDS: CARBAMAZEPINE 100 MG CHEW TAB PO SCH ×3 (09:43→21:41)
[2019-06-11] MEDS: ASPIRIN 81 MG CHEW PEG SCH (09:43)
[2019-06-11] MEDS: TRAZODONE HCL 50 MG TAB PEG SCH ×2 (09:43→17:34)
[2019-06-11] MEDS: LACTOBACILLUS ACIDOPHILUS 1 GM PACK GT SCH ×3 (09:43→17:30)
[2019-06-11] MEDS: levETIRAcetam ORAL SOLN 100MG/ML PO SCH ×2 (09:44→21:41)
[2019-06-11] MEDS: INSULIN GLARGINE SOLOSTAR 100 UNITS/ML 3 ML PEN SC SCH ×2 (09:45→21:41)
[2019-06-11] MEDS: MUPIROCIN 2% OINT 22 GM TUBE EXT SCH ×2 (09:46→21:42)
[2019-06-11] MEDS: SILVER SULFADIAZINE 1% CR 50 GM JAR TOP SCH (09:47)
[2019-06-11] MEDS ORDERED: VANCOMYCIN TROUGH ONE (13:30)
--- NOTE | 2019-06-11 14:02 | Pharmacy Report ---
Glycemic Control Progress Note - Date of Service June 11, 2019 - Scope Glycemic Pharmacist consulted for glycemic control to write orders per [facility] inpatient glycemic control protocol. - Objective Accuchecks BSG(last 24 hours):: 06/10/19 06/10/19 06/11/19 16:09 20:18 00:06 Glucose POC Glucose 271 H 256 H 259 H 06/11/19 06/11/19 06/11/19 05:13 06:38 07:38 Glucose 123 H POC Glucose 145 H 157 H 06/11/19 11:56 Glucose POC Glucose 237 H - Recent Pertinent Medications The patient is currently receiving: * Basal insulin: Lantus 20-30 units every 12 hours * Correctional Insulin: Novolog Correction per scale ACHS Goal Range: Low 110 mg/dL - High 140 mg/dL Correction Factor: 15 mg/dL/unit * Prandial insulin: Per carb ratio of 1 unit per 5 grams CHO consumed * Oral Agents: - Outpatient Anti-Diabetic Meds LANTUS 15 UNITS HS METFORMIN 1 GM PO BID - Assessment & Plan ASSESSMENT: * See progress note from 06/09/19 for more background info, in short: * Pt receiving SQ basal bolus insulin regimen for hyperglycemia secondary to baseline DM (outpatient regimen on hold),stress/infection (ON VANCOMYCIN AND ZOSYN). Patient currently on tube feeds right now at 55 mL/hr. * Patient is currently receiving an average of 111 units of insulin per day * 60 units of basal insulin * 51 units of prandial/correctional insulin * BSGs ranging 206 - 271 mg/dl over the past 24hrs * Changes needed to insulin regimen: * AM Fasting BSG = 145 mg/dl. This is in goal range for patient based on inpatient targets and co-morbidities. Basal insulin will be continued at a scale. Will provide a scale fo 20-25-30 units twice daily. * Post-prandial BSGs were very elevated yesterday. Patient is currently receiving tube feeds at 55 mL/hr. Yesterday, it does not appear that any carbohydrate coverage was given. Only correction when tube feeds were running. The only time it appears that carbohydrate coverage was given was around the midnight dose..... added carbohydrate count to tube feeds so nursing will give. This explains the large jump from breakfast to lunch. Loosen carbohydrate ratio to 6 since 5 was never really even tried out. * Total daily dose = >100 units. PLAN FOR INPATIENT GLYCEMIC CONTROL: * Continuing Lantus 20-30 units SQ BID * Lantus 20 units if BSG less than 120 mg/dL * Lantus 25 units if BSG 120-180 mg/dL * Lantus 30 units if BSG greater than 180 mg/dL * Continuing correction factor of 15 mg/dl/unit * Changing carb ratio to 1 unit per 6 grams CHO consumed * Continuing goal range of Low 110 mg/dL - High 140 mg/dL RECOMMENDATIONS FOR DISCHARGE: * will depend upon discharge plans. * Please note that the plan above was derived based on current level of insulin resistance and hospital stress. These recommendations are appropriate for inpatient admission only. Plan of care upon discharge will need to be reassessed to avoid potential outpatient hypo/hyperglycemia. Thank you.
--- NOTE | 2019-06-11 14:57 | Pharmacy Report ---
Pharmacy Abx Dose Short Note - Date of Service June 11, 2019 - Assessment & Plan Laboratory Tests 06/11/19 13:53 Vancomycin Trough 16.0 Assessment 63 year old M receiving Vancomycin 1250mg IV Q10 and Zosyn 3.375gm IV Q8 for treatment of aspiration PNA Day # 4 of antimicrobial therapy. Plan Vancomycin * Trough level of 16 mcg/mL is therapeutic, but true trough is expected to be higher- Vanc dose prior to level was given 1 hour early, and the trough level was drawn 1/2 hour late * Continue dose of 1250 mg IV every 10 hours * Goal trough level for PNA: 15 to 20 mcg/mL * Trough level ordered for: 06/13/19 at 0530 Pharmacy will continue to follow and will adjust dose/frequency as necessary. Thank you.
--- NOTE | 2019-06-11 16:14 | Hospitalist Progress Note ---
Date of Service June 11, 2019 Assessment & Plan (1) Aspiration pneumonia: CXR was clear on admission; however, CT a/p showed bilateral lower lobe pneumonia. - MRSA swab was positive on 06/09. - Per report from [facility], he also had a wound swab that was positive for MRSA. - Treating with vanc/Zosyn -> Will likely need switch to fairly broad oral abxs on discharge - I think he might be able to go tomorrow? He is more responsive, sodium is coming down, WBC has normalized. Sodium is still high, but his priors have been in the 145 range. To finish his abx course, could possibly switch to linezolid & Augmentin or linezolid & levofloxacin. Our antibiogram has 86% susceptible to levofloxacin for Pseudomonas which isn't bad, but not the 99% that Zosyn has. CM could help determine if [facility] can give IV as well which would solve the problem. (2) Sepsis: Secondary to pneumonia, likely aspiration which patient has had in the past. Lactic acid was 4.5 on admission, ph 7.3, WBCs 11, tachycardic and febrile in the ED. - See above (3) Hypernatremia: Na 163 when corrected for hyperglycemia -> 2.7L free water deficit. Given 2L NSS in the ED. - On 10/19 NSS until 06/10. Also started free water flushes. - On 06/10, Na down to 152. Holding IV fluids for increasing edema. - On 06/12, Na is still coming down slowly. Mental status seems the best it has ever been (including during his March admission), so I do not think it is causing any mental status changes at this point. (4) Type 2 diabetes mellitus with hyperglycemia: A1c was 8.6% in 04/2019. Blood sugar was 477 on admission. Initially on an insulin gtt. - Now on basal-bolus with pharmacy managing. (5) Epilepsy: No seizures inpatient. - Continue carbamazepine, Keppra (6) History of CVA (cerebrovascular accident): Patient is largely non-verbal with PEG tube. Will likely continue to aspirate. - Continue statin, ASA, Xeralto - Consulted palliative care who spoke with the sister. Present course of action is appropriate with the sister asking for medical therapy, but no escalation of care. No intubation, no pressors, no CPR, no cardioversion. BiPap or CPAP only if the patient tolerates it. - Continue ASA, statin (7) DVT prophylaxis: Xeralto, SCDs (Unclear why on Xarelto - possible DVT in the past?) Subjective Was somewhat more agitated for me this morning. Swatting away my hand. No verbal responeses to questions today. Review of Systems Review of Systems: Unobtainable due to cognitive status Physical Exam Constitutional: WD/WN, vitals as above + frail appearing, + disheveled and + lethargic; not in distress Eyes: EOM intact bilaterally; no conjunctival abnormality ENMT: external ear and nose normal, oropharynx normal Neck: trachea midline, no thyromegaly normal visual inspection Respiratory: no respiratory distress, no labored breathing and does not use accessory muscles Auscultation: + rhonchi (Throughout, heavy) Cardiovascular: RRR, no murmur, no edema Gastrointestinal (Abdomen): Inspection/Auscultation: abdomen normal to inspection; abdomen not distended Musculoskeletal: no cyanosis or clubbing, extremities motor strength 5/5 Skin: no rashes, warm and dry + induration (Abdomen with scabs) Neurologic: awake; + does not move all extremities Psychiatric: Orientation: alert; + not oriented to person and + uncooperative Results & Data Vital Signs (Past 12 Hours) Vital Signs Temp Pulse Resp BP Pulse Ox 06/11/19 15:41 78 18 92 06/11/19 15:18 36.9 C 80 18 144/84 H 95 06/11/19 11:59 37.0 C 85 18 184/81 H 94 06/11/19 11:17 81 18 94 06/11/19 07:17 85 18 93 06/11/19 07:09 37 C 87 24 135/83 94 PG Care Time/CCT Total # of Minutes Spent Total Time Spent with Patient: Total time spent is greater than 50% in coordination of care (as documented) at patient's floor/unit and/or counseling patient: (1) Aspiration pneumonia Aspiration pneumonia type: unspecified Laterality: unspecified laterality Lung location: unspecified part of lung Qualified Code(s): J69.0 - Pneumonitis due to inhalation of food and vomit (2) Sepsis Sepsis acute organ dysfunction status: unspecified Sepsis type: sepsis due to unspecified organism Qualified Code(s): A41.9 - Sepsis, unspecified organism (3) Epilepsy Epilepsy type: unspecified Intractability: not intractable Status epilepticus: without status epilepticus Qualified Code(s): G40.909 - Epilepsy, unspecified, not intractable, without status epilepticus
[2019-06-11] MEDS: PEPTAMEN 1.5 CAL 1,000 ML BAG PO SCH (17:30)
[2019-06-11] MEDS: RIVAROXABAN 20 MG TAB PO SCH (21:41)
[2019-06-11] MEDS: ATORVASTATIN 20 MG TAB PEG SCH (21:41)
[2019-06-12] MEDS: TUBE FEEDING WATER FLUSH GT SCH ×6 (02:00→21:22)
[2019-06-12] MEDS: INSULIN ASPART 100 UNITS/ML 3 ML PEN SC SCH ×6 (02:05→20:00)
[2019-06-12] MEDS: guaiFENesin SUGAR FREE 100 MG/5 ML UDC GT SCH ×4 (05:15→16:58)
[2019-06-12] MEDS: PIPERACILLIN/TAZOBACTAM 3.375 GM in DEXTROSE 5% 100 ML IV SCH ×3 (05:15→21:19)
[2019-06-12 06:47] LABS: BUN Creatinine Ratio 16.7 (10-20); Calcium 9.2 mg/dl (8.5-10.1); Creatinine Clr Calc Pharmacy 114.1 ml/min; Est GFR (African American) 119.5; Est GFR (Non-African American) 103.1; Potassium 3.6 mmol/L (3.5-5.1)
[2019-06-12] MEDS: BUDESONIDE 0.5 MG/2 ML VIAL (PULMICORT) INH SCH ×3 (06:55→22:53)
[2019-06-12] MEDS: ALBUT/IPRATROP 3MG/0.5MG NEB 3 ML VIAL NEB SCH ×4 (06:55→20:06)
[2019-06-12] MEDS: ASPIRIN 81 MG CHEW PEG SCH (07:44)
[2019-06-12] MEDS: CARBAMAZEPINE 100 MG CHEW TAB PO SCH ×3 (07:44→21:20)
[2019-06-12] MEDS: CITALOPRAM 40 MG TAB PEG SCH (07:44)
[2019-06-12] MEDS: levETIRAcetam ORAL SOLN 100MG/ML PO SCH ×2 (07:45→21:20)
[2019-06-12] MEDS: TRAZODONE HCL 50 MG TAB PEG SCH ×2 (07:48→16:58)
[2019-06-12] MEDS: LACTOBACILLUS ACIDOPHILUS 1 GM PACK GT SCH ×3 (07:49→15:46)
[2019-06-12] MEDS: MUPIROCIN 2% OINT 22 GM TUBE EXT SCH ×2 (07:50→21:20)
[2019-06-12] MEDS: INSULIN GLARGINE SOLOSTAR 100 UNITS/ML 3 ML PEN SC SCH ×2 (09:00→21:21)
[2019-06-12] MEDS: VANCOMYCIN HCL 1,250 MG in SODIUM CHLORIDE 0.9% 250 ML IV SCH ×3 (10:16→19:50)
[2019-06-12] MEDS ORDERED: BISACODYL 10 MG SUPP PR PRN (15:03)
--- NOTE | 2019-06-12 15:04 | Hospitalist Progress Note ---
Date of Service June 12, 2019 Assessment & Plan (1) Aspiration pneumonia: CXR was clear on admission; however, CT a/p showed bilateral lower lobe pneumonia. - MRSA swab was positive on 06/09. - Per report from [facility], he also had a wound swab that was positive for MRSA. - Treating with vanc/Zosyn -> Will likely need switch to fairly broad oral abxs on discharge - could switch to linezolid & Augmentin or linezolid & levofloxacin on dc - Our antibiogram has 86% susceptible to levofloxacin for Pseudomonas which isn't bad, but not the 99% that Zosyn has -not quite ready for dc today as seems to have labored breathing, diaphoresis, diffuse wheezing-add on steroids (2) Sepsis: Secondary to pneumonia, likely aspiration which patient has had in the past. Lactic acid was 4.5 on admission, ph 7.3, WBCs 11, tachycardic and febrile in the ED. - See above, resolving (3) Hypernatremia: Na 163 when corrected for hyperglycemia upon admission -> 2.7L free water deficit. Given 2L NSS in the ED. - On 1/ NSS until 06/10. Also started free water flushes-getting 150mL q4h of free water flushes - On 06/10, Na down to 152. Dc'd IV fluids for increasing edema. - On 06/12, Na is still coming down slowly, now at 146. Mental status seems back to baseline -follow BMP in AM (4) Type 2 diabetes mellitus with hyperglycemia: A1c was 8.6% in 04/2019. Blood sugar was 477 on admission. Initially on an insulin gtt. - Now on basal-bolus with pharmacy managing. (5) Epilepsy: No seizures inpatient. - Continue carbamazepine, Keppra (6) History of CVA (cerebrovascular accident): Patient is largely non-verbal with PEG tube. Will likely continue to aspirate. - Continue statin, ASA, Xarelto - Consulted palliative care who spoke with the sister. Present course of action is appropriate with the sister asking for medical therapy, but no escalation of care. No intubation, no pressors, no CPR, no cardioversion. BiPap or CPAP only if the patient tolerates it. (7) COPD (chronic obstructive pulmonary disease): With acute exacerbation here-with diffuse wheezing, labored breathing today, diaphoretic. Not hypoxic -start IV Solu Medrol 60mg IV q12 -continue Budesonide inhalers, scheduled Levalbuterol and prn albuterol (8) DVT prophylaxis: Hai Walsh Has a h/o extensive bilat LE DVTs and PEs in 10/2017 Dispo-continue PCU stay, can dc back to [facility] tomorrow if respiratory status improves Subjective Pt not able to verbalize anything intelligible. RN reports no BM in several days. He is diaphoretic and breathing somewhat deep and long expirations when I walked into the room. Afebrile. Tele with NSR-ST rates 70s-110s. Review of Systems Review of Systems: Unobtainable due to cognitive status Physical Exam Constitutional: average body habitus Eyes: + anicteric sclerae Neck: trachea midline, no thyromegaly Respiratory: + labored breathing, + prolonged expiratory phase and + audible wheezes Auscultation: + wheezes; no crackles and no rhonchi Cardiovascular: RRR, no murmur, no edema Gastrointestinal (Abdomen): normal bowel sounds, soft, nontender, no hepatosplenomegaly Musculoskeletal: Extremities: extremities normal to inspection; no cyanosis and no clubbing Skin: + wound (multiple areas on abdomen of crusted over lesions, 2 slightly open) Neurologic: + focal motor deficit (Rt hemiparesis, lathe puller with left hand) and awake Speech / Cognition: + expressive aphasia and + abnormal cognition Psychiatric: Orientation: alert Results & Data Vital Signs (Past 12 Hours) Vital Signs Temp Pulse Pulse Resp BP BP Pulse Ox 06/12/19 15:02 36.7 C 06/12/19 11:22 88 131/89 91 06/12/19 11:20 88 20 92 06/12/19 09:05 100 H 06/12/19 07:18 93 H 18 150/92 H 97 06/12/19 06:55 88 26 H 95 06/12/19 04:15 36.4 C L 88 20 151/89 H 93 Laboratory Results 06/12/19 06/12/19 06/12/19 Range/Units 20:11 16:08 11:22 Sodium (136-145) mmol/L Potassium (3.5-5.1) mmol/L Chloride (98-107) mmol/L Carbon Dioxide (21-32) mmol/L Anion Gap (3-11) BUN (7-18) mg/dl Creatinine (0.6-1.4) mg/dl Est Cr Clr Drug Dosing ml/min Est GFR ( Amer) Est GFR (Non-Af Amer) BUN/Creatinine Ratio (10-20) Glucose (70-99) mg/dl POC Glucose 127 H 203 H 247 H (70-99) Calcium (8.5-10.1) mg/dl 06/12/19 06/12/19 06/12/19 Range/Units 07:56 05:53 05:52 Sodium 146 H (136-145) mmol/L Potassium 3.6 (3.5-5.1) mmol/L Chloride 108 H (98-107) mmol/L Carbon Dioxide 31 (21-32) mmol/L Anion Gap 7.0 (3-11) BUN 11 (7-18) mg/dl Creatinine 0.68 (0.6-1.4) mg/dl Est Cr Clr Drug Dosing 114.1 ml/min Est GFR ( Amer) 119.5 Est GFR (Non-Af Amer) 103.1 BUN/Creatinine Ratio 16.7 (10-20) Glucose 147 H (70-99) mg/dl POC Glucose 156 H 143 H (70-99) Calcium 9.2 (8.5-10.1) mg/dl 06/12/19 06/12/19 Range/Units 04:10 02:03 Sodium (136-145) mmol/L Potassium (3.5-5.1) mmol/L Chloride (98-107) mmol/L Carbon Dioxide (21-32) mmol/L Anion Gap (3-11) BUN (7-18) mg/dl Creatinine (0.6-1.4) mg/dl Est Cr Clr Drug Dosing ml/min Est GFR ( Amer) Est GFR (Non-Af Amer) BUN/Creatinine Ratio (10-20) Glucose (70-99) mg/dl POC Glucose 188 H 204 H (70-99) Calcium (8.5-10.1) mg/dl PG Care Time/CCT Total # of Minutes Spent Total Time Spent with Patient: Total time spent is greater than 50% in coordination of care (as documented) at patient's floor/unit and/or counseling patient: (1) Epilepsy Epilepsy type: unspecified Intractability: not intractable Status epilepti cus: without status epilepticus Qualified Code(s): G40.909 - Epilepsy, unspecified, not intractable, without status epilepticus (2) Aspiration pneumonia Aspiration pneumonia type: unspecified Laterality: unspecified laterality Lung location: unspecified part of lung Qualified Code(s): J69.0 - Pneumonitis due to inhalation of food and vomit (3) Sepsis Sepsis acute organ dysfunction status: unspecified Sepsis type: sepsis due to unspecified organism Qualified Code(s): A41.9 - Sepsis, unspecified organism (4) COPD (chronic obstructive pulmonary disease) COPD type: unspecified COPD Qualified Code(s): J44.9 - Chronic obstructive pulmonary disease, unspecified
[2019-06-12] MEDS: POLYETHYLENE (MIRALAX) 17 GM PACK PO SCH (15:45)
[2019-06-12] MEDS: PEPTAMEN 1.5 CAL 1,000 ML BAG PO SCH (17:22)
[2019-06-12] MEDS: RIVAROXABAN 20 MG TAB PO SCH (21:20)
[2019-06-12] MEDS: ATORVASTATIN 20 MG TAB PEG SCH (21:21)
[2019-06-12] MEDS: SENNA 8.8 MG/5 ML UDP PEG SCH (21:21)
[2019-06-12] MEDS: methylPREDNISolone 60 MG in SYRINGE 0 ML IV SCH (23:11)
[2019-06-13] MEDS: INSULIN ASPART 100 UNITS/ML 3 ML PEN SC SCH ×5 (00:08→16:21)
[2019-06-13] MEDS: TUBE FEEDING WATER FLUSH GT SCH ×4 (01:30→16:05)
[2019-06-13] MEDS ORDERED: VANCOMYCIN TROUGH ONE (05:30)
[2019-06-13] MEDS: PIPERACILLIN/TAZOBACTAM 3.375 GM in DEXTROSE 5% 100 ML IV SCH ×2 (05:39→14:05)
[2019-06-13] MEDS: VANCOMYCIN HCL 1,250 MG in SODIUM CHLORIDE 0.9% 250 ML IV SCH ×2 (05:39→16:12)
[2019-06-13] MEDS: guaiFENesin SUGAR FREE 100 MG/5 ML UDC GT SCH ×3 (05:39→12:30)
[2019-06-13 05:49] LABS: Basophils # (auto) 0.01 K/uL (0-0.2); Basophils % (auto) 0.1 %; Eosinophils # (auto) 0.03 K/uL (0-0.5); Eosinophils % (auto) 0.3 %; Hematocrit (blood only) 38.2 % (42-52); Immature Granulocytes # (auto) 0.02 K/uL (0.00-0.02); Immature Granulocytes % (auto) 0.2 %; Lymphocytes # (auto) 0.77 K/uL (1.2-3.4); Lymphocytes % (auto) 7.8 %; Mean Corpuscular Volume 94.3 fL (80-100); Mean Platelet Volume 11.6 fL (7.4-10.4); Monocytes # (auto) 0.51 K/uL (0.11-0.59); Monocytes % (auto) 5.1 %; Neutrophils # (auto) 8.57 K/uL (1.4-6.5); Neutrophils % (auto) 86.5 %; Platelet Count 163 K/uL (130-400); RDW Coefficient of Variation 13.3 % (11.5-14.5); RDW Standard Deviation 45.9 fL (36.4-46.3); Red Blood Count 4.05 M/uL (4.7-6.1); White Blood Count 9.91 K/uL (4.8-10.8)
[2019-06-13 06:25] LABS: BUN Creatinine Ratio 14.1 (10-20); Calcium 8.8 mg/dl (8.5-10.1); Creatinine Clr Calc Pharmacy 114.1 ml/min; Est GFR (African American) 119.5; Est GFR (Non-African American) 103.1; Potassium 4.2 mmol/L (3.5-5.1)
[2019-06-13] MEDS: ALBUT/IPRATROP 3MG/0.5MG NEB 3 ML VIAL NEB SCH ×3 (07:11→15:18)
[2019-06-13] MEDS: BUDESONIDE 0.5 MG/2 ML VIAL (PULMICORT) INH SCH ×2 (07:11→15:18)
[2019-06-13] MEDS: MUPIROCIN 2% OINT 22 GM TUBE EXT SCH (07:50)
[2019-06-13] MEDS: TRAZODONE HCL 50 MG TAB PEG SCH (07:51)
[2019-06-13] MEDS: CITALOPRAM 40 MG TAB PEG SCH (07:51)
[2019-06-13] MEDS: SENNA 8.8 MG/5 ML UDP PEG SCH (07:52)
[2019-06-13] MEDS: CARBAMAZEPINE 100 MG CHEW TAB PO SCH ×2 (07:54→16:13)
[2019-06-13] MEDS: levETIRAcetam ORAL SOLN 100MG/ML PO SCH (07:55)
[2019-06-13] MEDS: ASPIRIN 81 MG CHEW PEG SCH (07:55)
[2019-06-13] MEDS: LACTOBACILLUS ACIDOPHILUS 1 GM PACK GT SCH ×3 (07:55→16:07)
[2019-06-13] MEDS: POLYETHYLENE (MIRALAX) 17 GM PACK PO SCH (07:56)
--- NOTE | 2019-06-13 08:22 | Pharmacy Report ---
Pharmacy Abx Dose Short Note - Date of Service June 13, 2019 - Assessment & Plan A/P Vanco trough at Css therapeutic, 15.0mcg/mL. Renal fxn has remained stable. Will continue with current dose and interval. No further trough's ordered. Will order a f/u trough if there is an acute change in clinical status or renal fxn. Pharmacy will continue to follow and will adjust dose/frequency as necessary. Thank you.
[2019-06-13] MEDS: INSULIN GLARGINE SOLOSTAR 100 UNITS/ML 3 ML PEN SC SCH (09:39)
[2019-06-13] MEDS: methylPREDNISolone 60 MG in SYRINGE 0 ML IV SCH (09:40)
--- NOTE | 2019-06-13 11:01 | Discharge Summary ---
Date of Service June 13, 2019 Discharge Exam Constitutional average body habitus Eyes PERRL, conjunctivae normal, anicteric sclerae + anicteric sclerae ENMT external ear and nose normal, oropharynx normal Neck trachea midline, no thyromegaly Respiratory normal respiratory effort, lungs clear to auscultation + labored breathing, + prolonged expiratory phase and + audible wheezes Auscultation: + wheezes; no crackles and no rhonchi Cardiovascular RRR, no murmur, no edema Gastrointestinal (Abdomen) normal bowel sounds, soft, nontender, no hepatosplenomegaly Musculoskeletal Extremities: extremities normal to inspection; no cyanosis and no clubbing Skin no rashes, warm and dry + wound (multiple areas on abdomen of crusted over lesions, 2 slightly open) Neurologic + focal motor deficit (Rt hemiparesis, 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) and awake Speech / Cognition: + expressive aphasia and + abnormal cognition Psychiatric A+Ox3, euthymic affect Orientation: alert Discharge Data Allergies Allergy/AdvReac Type Severity Reaction Status Date / Time bee venom protein (honey bee) Allergy Unknown LISTED ON Verified 06/08/19 13:03 MAR pseudoephedrine Allergy Unknown UNKNOWN Verified 06/08/19 13:03 Consultations 06/08/19 15:07 ED Decision to Admit Stat 06/08/19 19:42 Consult Case Management - Discharge Planning Routine Consult Palliative Care Routine Consult Palliative Care Stat Ordered Studies 06/08/19 12:13 CT abd pelvis IV con only Stat Hospital Course (1) Aspiration pneumonia: CXR was clear on admission; however, CT a/p showed bilateral lower lobe pneumonia. - MRSA swab was positive on 06/09. - Per report from [facility], he also had a wound swab that was positive for MRSA. - Treating with vanc/Zosyn -> Will likely need switch to fairly broad oral abxs on discharge - could switch to linezolid & Augmentin or linezolid & levofloxacin on dc - Our antibiogram has 86% susceptible to levofloxacin for Pseudomonas which isn't bad, but not the 99% that Zosyn has -not quite ready for dc today as seems to have labored breathing, diaphoresis, diffuse wheezing-add on steroids (2) Sepsis: Secondary to pneumonia, likely aspiration which patient has had in the past. Lactic acid was 4.5 on admission, ph 7.3, WBCs 11, tachycardic and febrile in the ED. - See above, resolving (3) Hypernatremia: Na 163 when corrected for hyperglycemia upon admission -> 2.7L free water deficit. Given 2L NSS in the ED. - On 10/19 NSS until 06/10. Also started free water flushes-getting 150mL q4h of free water flushes - On 06/10, Na down to 152. Dc'd IV fluids for increasing edema. - On 06/12, Na is still coming down slowly, now at 146. Mental status seems back to baseline -follow BMP in AM (4) Type 2 diabetes mellitus with hyperglycemia: A1c was 8.6% in 04/2019. Blood sugar was 477 on admission. Initially on an insulin gtt. - Now on basal-bolus with pharmacy managing. (5) Epilepsy: No seizures inpatient. - Continue carbamazepine, Keppra (6) History of CVA (cerebrovascular accident): Patient is largely non-verbal with PEG tube. Will likely continue to aspirate. - Continue statin, ASA, Xarelto - Consulted palliative care who spoke with the sister. Present course of action is appropriate with the sister asking for medical therapy, but no escalation of care. No intubation, no pressors, no CPR, no cardioversion. BiPap or CPAP only if the patient tolerates it. (7) COPD (chronic obstructive pulmonary disease): With acute exacerbation here-with diffuse wheezing, labored breathing today, diaphoretic. Not hypoxic -start IV Solu Medrol 60mg IV q12 -continue Budesonide inhalers, scheduled Levalbuterol and prn albuterol (8) DVT prophylaxis: Hai Walsh Has a h/o extensive bilat LE DVTs and PEs in 10/2017 Dispo-continue PCU stay, can dc back to [place] tomorrow if respiratory status improves Discharge Plan Discharge Items Patient Disposition: Transfer Custodial Fac Reason For Visit: PNEUMONIA,HYPERNATREMIA Discharge Diagnosis: Aspiration Pneumonia, Hypernatremia Condition: Fair Discharge Goals: Decrease discomfort, Diagnostic testing, Improve disease control and Therapeutic intervention Activity: Resume your previous activity Bathing: No limitations Non-emergency contact: Primary Care Provider Call non-emergency contact if: you have any medication questions and your symptoms worsen Follow-up/Referrals: Leyla Post [Primary Care Provider] - Diet: Nothing by mouth Diet Comment: Tube feeds, Needs free water flushes 150mL every 4 hours Addtl Provider Instructions: Finish out course of antibiotics for his pneumonia and needs free water flushes to keep him from getting dehydrated/hypernatremia again. Finish out prednisone taper for COPD exacerbation. Prescriptions: New mupirocin 2 % Ointment 1 applic EXT BID Qty: 15 RF: 0 doxycycline hyclate 100 mg tablet 100 mg PO BID 3 Days Qty: 6 RF: 0 levofloxacin [Levaquin] 750 mg tablet 750 mg feeding tube DAILY Qty: 3 RF: 0 prednisone 10 mg tablet 40 mg PO DAILY Qty: 20 RF: 0 Continued acetaminophen 650 mg Suppository 650 mg MI Q6H PRN (Reason: Pain/fever) RF: 0 atorvastatin 20 mg Tablet 20 mg Feeding Tube HS RF: 0 ipratropium-albuterol 0.5 mg-3 mg(2.5 mg base)/3 mL Solution For Nebulization 3 ml INHALATION Q6 RF: 0 citalopram 40 mg Tablet 40 mg Feeding Tube QAM RF: 0 trazodone 50 mg Tablet 25 mg Feeding Tube BID RF: 0 aspirin 81 mg Tablet,Delayed Release (Dr/Ec) 81 mg Feeding Tube QAM RF: 0 guaifenesin 100 mg/5 mL Liquid 10 ml Feeding Tube Q6 RF: 0 metformin 1,000 mg Tablet 1,000 mg Feeding Tube BIDM RF: 0 budesonide 0.5 mg/2 mL Suspension For Nebulization 0.5 mg INHALATION Q8 RF: 0 carbamazepine 100 mg/5 mL Suspension 100 mg Feeding Tube HS RF: 0 Lactobacillus acidophilus Capsule 1 cap Feeding Tube TID RF: 0 levetiracetam 100 mg/mL Solution 10 ml Feeding Tube BID RF: 0 acetaminophen 325 mg Capsule 650 mg Feeding Tube Q8 PRN (Reason: Pain) RF: 0 carbamazepine 200 mg/10 mL Suspension 400 mg Feeding Tube BID RF: 0 Xarelto 20 mg Tablet 20 mg G-Tube HS RF: 0 sennosides [senna] 8.6 mg Tablet 8.6 mg feeding tube BID PRN (Reason: Constipation) RF: 0 ibuprofen 100 mg/5 mL Suspension 400 mg PO Q6H PRN (Reason: temp) RF: 0 Changed insulin glargine 100 unit/mL (3 mL) Insulin Pen 25 unit SUBCUT BID Qty: 0 RF: 0 Discontinued silver sulfadiazine 1 % Cream 1 applic TOPICAL BID RF: 0 amoxicillin-pot clavulanate 875-125 mg Tablet 1 tab feeding tube ONCE RF: 0 Stand-Alone Forms: [facility] Discharge Orders: Discharge Order (Routine); Ordered 06/13/19 Ordered By: Heidi Neal Skilled Items Patient informed of condition?: Yes DNR: Yes Discharge Level of Care: Skilled Communicable Disease: No Discharge Prognosis: Stable Admission Data Admit Date/Time: 06/08/19 17:44 Attending Provider: Heidi Neal Admit Provider: Cristian Dillard Primary Care Provider: Leyla Post Other Providers: Ebony Junior ; Cristian Dillard Service: Telemetry Other Pending Studies at Discharge: No
== END 2019-06-13 17:49 | DRG 871 ==
LOC: ED 12:00 → SUATTDRO 17:44 → 2S 17:44

== ENCOUNTER 2020-02-08 13:58 | Inpatient (IN) ==
[2020-02-08] MEDS ORDERED: CEFEPIME 1,000 MG in SYRINGE 0 ML IV STA (14:26)
[2020-02-08] MEDS ORDERED: SODIUM CHLORIDE 0.9% 1000ML 2,000 ML IV ONE (14:26)
[2020-02-08] MEDS ORDERED: LEVOFLOXACIN/D5W 750 MG/150 ML BAG IV SCH (14:30)
--- NOTE | 2020-02-08 14:36 | Emergency Department Note ---
Impression & Plan Sepsis, Pneumonia, Acute hypernatremia, Acute hyperglycemia, Acute dehydration ED Provider Note NAME: KULDIP NAVARRO AGE: 64 SEX: M : 1955 ARRIVES VIA: Ambulance INFORMANT: Patient, jail ED PROVIDER(S): Issa Galloway DO CHIEF COMPLAINT: Sepsis HPI: Patient is a 62-year-old male with a past medical history of aspiration pneumonia, sepsis, diabetes, COPD and CVA that presents the ER for fever. Patient was found at the care home to be febrile and tachycardic. They obtained a chest x-ray which per report showed a right lower lobe infiltrate. Patient was brought in on oxygen by EMS. History is otherwise limited. Lila elevated blood sugars for the past 2 to 3 days. covid neg on the 5th. Fever yesterday 100.8. Patient is normally nonverbal and unable to move the right side. They note that he is normally very agitated moving around and he has been much more lethargic today which is abnormal for him. ROS: Review of systems unable to obtain due to mentation. PAST MEDICAL HISTORY:See Below PAST SURGICAL HISTORY:See Below FAMILY HISTORY:See Below SOCIAL HISTORY:See Below HOME MEDICATIONS:See Below ALLERGIES:See Below VITALS:See Below PHYSICAL EXAMINATION: GENERAL: Sitting up in bed, ill-appearing, cachectic, EYE EXAM: normal conjunctiva. OROPHARYNX: mucous membranes are dry NECK: supple, no nuchal rigidity, no adenopathy, non-tender LUNGS: Rhonchi bilateral. Normal chest wall mechanics HEART: no murmurs, S1 normal and S2 normal ABDOMEN: abdomen soft, non-tender, PEG tube in place BACK: Back is symmetrical on inspection and there is no deformity, no midline tenderness, no CVA tenderness. SKIN: no rashes and no bruising UPPER EXTREMITIES: upper extremities are grossly normal. LOWER EXTREMITIES: No pitting edema. NEURO EXAM: Patient's eyes are open moving left side spontaneously but not following commands. Not moving right upper right lower extremity. MEDICAL DECISION MAKING: Patient is a 64-year-old male DNR/DNI that presents the ER from [facility] for fever and tachycardia associated with an infiltrate found on the chest x-ray. Patient is nonverbal at baseline but normally fairly agitated and as he is very lethargic this is new. Patient has a history of sepsis and aspiration pneumonia. Suffers from a CVA and appears to be nonverbal at baseline. They note that he has been more lethargic. IV was established blood work was obtained. He was found to be tachycardic, tachypneic, febrile and hypoxic. He was placed on 5 L oxygen mask. IV was established blood work was obtained and showed a leukocytosis of 17,000. No significant anemia. INR was unremarkable. Sodium was significantly elevated at 158. Creatinine was slightly elevated at 1.8. Glucose was elevated at 487. There is no gap. Lactate was elevated 2.8. Troponin was elevated at 0.135. Beta hydroxybutyric acid was negative. UA did suggest a UTI as there is white cells, leukocytes and bacteria. Patient was given 2 L IV fluids upon arrival in combination with IV cefepime, Levaquin and vancomycin as he has a history of MRSA. Did favor coronavirus testing would be beneficial at this time but will defer to the hospitalist due to the current policy. Patient was monitored closely. He was placed on insulin drip. Discussed and updated with heart side prior to admission. Triage Nursing notes reviewed. Prior medical records reviewed Vital Signs: reviewed and remarkable for fever, tachycardia and hypoxia Differential diagnosis: Differential diagnosis includes etiologies such as sepsis, UTI, pneumonia, metabolic, electrolyte abnormalities, cardiac sources, intracerebral event, toxicologic, neurological, as well as others were entertained. ER treatment provided: See below Diagnostics interpreted by me: ECG: Sinus tachycardia rate of [address] wave changes in the inferior leads No PVCs Normal QTC Cardiac Monitoring: An order was placed for continuous cardiac monitoring. The monitor shows a rate of 121 with sinus rhythm. Laboratory studies: As stated above and show below. Imaging studies: Portable AP upright 1 view of the chest shows left lower lobe infiltrate. Consultation(s): Discussed with Dr. Heidi Neal who accepts the patient. ED COURSE: Procedures: none Critical Care: I have personally spent 45 minutes of critical care time in the direct manageme nt of this patient. This includes bedside care, interpretation of diagnostic studies, and testing, discussion with consultants, patient, and family members, and other required patient management activities. This 45 minutes is in excess of all separately billable procedures. 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 Beliefs That Will Affect Care: None marital status: Single Current Living Situation: Snf current occupational status: disabled Feels Safe at Home: Declines to Answer Smoking Status: Unknown if ever smoked Hx Alcohol Use: No Hx Substance Use: No Allergies Allergies Allergy/AdvReac Type Severity Reaction Status Date / Time bee venom protein (honey bee) Allergy Unknown LISTED ON Verified 02/08/20 15:27 MAR pseudoephedrine Allergy Unknown UNKNOWN Verified 02/08/20 15:27 Home Meds Home Medications Medication Instructions Recorded Confirmed Xarelto 20 mg G-TUBE DAILY 11/01/18 02/08/20 atorvastatin [Lipitor] 20 mg FEEDING TUBE HS 11/01/18 02/08/20 budesonide [Pulmicort] 0.5 mg INHALATION TID 11/01/18 02/08/20 carbamazepine 400 mg FEEDING TUBE BID 11/01/18 02/08/20 carbamazepine [Tegretol] 100 mg FEEDING TUBE HS 11/01/18 02/08/20 citalopram [Celexa] 40 mg FEEDING TUBE DAILY 11/01/18 02/08/20 guaifenesin [Ri-Tussin] 10 ml FEEDING TUBE Q6H 11/01/18 02/08/20 ipratropium-albuterol 3 ml INHALATION Q6H 11/01/18 02/08/20 levetiracetam [Keppra] 10 ml FEEDING TUBE BID 11/01/18 02/08/20 metformin [Glucophage] 1,000 mg FEEDING TUBE BIDM 11/01/18 02/08/20 trazodone 50 mg FEEDING TUBE BID 11/01/18 02/08/20 acetaminophen 650 mg FEEDING TUBE Q6H PRN 10/04/19 02/08/20 ammonium lactate [Ivette-Hydrolac] 1 applic TOPICAL BID 10/04/19 02/08/20 insulin glargine [Lantus Solostar 0 unit SUBCUT BID 10/04/19 02/08/20 U-100 Insulin] 100 Ml Free Water Flush 100 ml FEEDING TUBE Q4H 02/08/20 02/08/20 Barrier Cream 1 applic TOPICAL UD 02/08/20 02/08/20 Saccharomyces boulardii [Florastor] 250 mg FEEDING TUBE TID 02/08/20 02/08/20 aspirin 81 mg FEEDING TUBE DAILY 02/08/20 02/08/20 bisacodyl [Dulcolax (bisacodyl)] 10 mg AZ UD PRN 02/08/20 02/08/20 docusate sodium 100 mg PO Q3D 02/08/20 02/08/20 glucagon (human recombinant) 1 mg IM UD PRN 02/08/20 02/08/20 [Glucagon Emergency Kit (human)] insulin glargine [Lantus U-100 0 unit SUBCUT BID 02/08/20 02/08/20 Insulin] insulin lispro [Humalog U-100 20 unit SUBCUT DAILY PRN 02/08/20 02/08/20 Insulin] levofloxacin [Levaquin] 500 mg PO DAILY 02/08/20 02/08/20 magnesium hydroxide [Milk of 30 ml FEEDING TUBE UD PRN 02/08/20 02/08/20 Magnesia] multivitamin, stress formula 1 tab FEEDING TUBE DAILY 02/08/20 02/08/20 [Stress Formula] omeprazole 20 mg FEEDING TUBE DAILY 02/08/20 02/08/20 simethicone [Gas Relief 80 mg PO Q6H PRN 02/08/20 02/08/20 (simethicone)] sodium phosphates [Enema] 118 ml AZ UD PRN 02/08/20 02/08/20 Results & Data (ED) Vital Signs Vital Signs - 24 hr 02/08/20 14:00 02/08/20 14:10 02/08/20 14:16 Temperature Temperature Source Pulse Rate 128 H 121 H 121 H Pulse Rate from SpO2 Sensor 121 H 121 H Respiratory Rate 23 32 H 31 H Respiratory Depth Respiratory Pattern Blood Pressure 155/104 H 116/82 Blood Pressure Mean 114 90 Pulse Oximetry 87 L 87 L Oxygen Delivery Method Room Air Room Air Room Air Oxygen Flow Rate Sepsis Recent Fever Within 48 Hours Sepsis Action Taken by Nursing 02/08/20 14:20 02/08/20 14:27 02/08/20 14:30 Temperature 38.1 C H Temperature Source Rectal Pulse Rate 120 H 120 H 115 H Pulse Rate from SpO2 Sensor 120 H 115 H Respiratory Rate 30 H 30 H 33 H Respiratory Depth Shallow Respiratory Pattern Tachypnea Blood Pressure 116/78 Blood Pressure Mean 90 Pulse Oximetry 88 L 88 L 92 Oxygen Delivery Method Nasal Cannula Room Air Oxymask Oxygen Flow Rate 2 2 Sepsis Recent Fever Within 48 Hours Yes Sepsis Action Taken by Nursing Physician Notified 02/08/20 14:40 02/08/20 14:50 02/08/20 15:00 Temperature Temperature Source Pulse Rate 112 H 108 H 110 H Pulse Rate from SpO2 Sensor 112 H 108 H 110 H Respiratory Rate 28 H 21 26 H Respiratory Depth Respiratory Pattern Blood Pressure Blood Pressure Mean Pulse Oximetry 95 94 94 Oxygen Delivery Method Oxymask Oxymask Oxymask Oxygen Flow Rate 2 2 2 Sepsis Recent Fever Within 48 Hours Sepsis Action Taken by Nursing 02/08/20 15:10 02/08/20 15:20 02/08/20 15:25 Temperature Temperature Source Pulse Rate 108 H 110 H 111 H Pulse Rate from SpO2 Sensor 108 H 110 H 111 H Respiratory Rate 25 H 26 H 21 Respiratory Depth Respiratory Pattern Blood Pressure 96/79 L Blood Pressure Mean 83 Pulse Oximetry 94 93 93 Oxygen Delivery Method Oxymask Oxymask Oxymask Oxygen Flow Rate 2 2 2 Sepsis Recent Fever Within 48 Hours Sepsis Action Taken by Nursing 02/08/20 15:30 02/08/20 15:40 02/08/20 15:45 Temperature Temperature Source Pulse Rate 106 H 104 H 105 H Pulse Rate from SpO2 Sensor 106 H 105 H 105 H Respiratory Rate 24 26 H 26 H Respiratory Depth Respiratory Pattern Blood Pressure 134/79 110/71 Blood Pressure Mean 97 82 Pulse Oximetry 95 93 94 Oxygen Delivery Method Oxymask Oxymask Oxymask Oxygen Flow Rate 2 5 5 Sepsis Recent Fever Within 48 Hours Sepsis Action Taken by Nursing 02/08/20 15:50 02/08/20 16:00 02/08/20 16:10 Temperature Temperature Source Pulse Rate 105 H 107 H 107 H Pulse Rate from SpO2 Sensor 105 H 107 H 107 H Respiratory Rate 26 H 26 H 25 H Respiratory Depth Respiratory Pattern Blood Pressure 117/72 Blood Pressure Mean 94 Pulse Oximetry 94 93 94 Oxygen Delivery Method Oxymask Oxymask Oxymask Oxygen Flow Rate 5 5 5 Sepsis Recent Fever Within 48 Hours Sepsis Action Taken by Nursing 02/08/20 16:16 02/08/20 16:20 02/08/20 16:30 Temperature Temperature Source Pulse Rate 107 H 106 H 106 H Pulse Rate from SpO2 Sensor 107 H 106 H 106 H Respiratory Rate 25 H 27 H 23 Respiratory Depth Respiratory Pattern Blood Pressure 108/79 Blood Pressure Mean 90 Pulse Oximetry 95 94 92 Oxygen Delivery Method Oxymask Oxymask Oxymask Oxygen Flow Rate 5 5 5 Sepsis Recent Fever Within 48 Hours Sepsis Action Taken by Nursing 02/08/20 16:31 02/08/20 16:40 02/08/20 16:45 Temperature Temperature Source Pulse Rate 110 H 105 H 105 H Pulse Rate from SpO2 Sensor 111 H 105 H 105 H Respiratory Rate 30 H 25 H 24 Respiratory Depth Respiratory Pattern Blood Pressure 101/74 112/71 Blood Pressure Mean 79 74 Pulse Oximetry 93 94 94 Oxygen Delivery Method Oxymask Oxymask Oxymask Oxygen Flow Rate 5 5 5 Sepsis Recent Fever Within 48 Hours Sepsis Action Taken by Nursing 02/08/20 16:50 02/08/20 17:00 02/08/20 17:10 Temperature Temperature Source Pulse Rate 106 H 105 H 109 H Pulse Rate from SpO2 Sensor 107 H 105 H 109 H Respiratory Rate 23 24 32 H Respiratory Depth Respiratory Pattern Blood Pressure 98/68 L Blood Pressure Mean 85 Pulse Oximetry 94 94 93 Oxygen Delivery Method Oxymask Oxymask Oxymask Oxygen Flow Rate 5 5 5 Sepsis Recent Fever Within 48 Hours Sepsis Action Taken by Nursing Laboratory Data Result diagrams: 02/08/20 14:20 02/08/20 14:20 Lab Results 02/08/20 02/08/20 02/08/20 Range/Units 14:20 14:20 14:20 WBC 17.84 H (4.8-10.8) K/uL RBC 4.96 (4.7-6.1) M/uL Hgb 16.5 (14.0-18.0) g/dL Hct 53.6 H (42-52) % MCV 108.1 H (80-100) fL MCH 33.3 (25-34) pg MCHC 30.8 L (32-36) g/dL RDW Std Deviation 59.8 H (36.4-46.3) fL RDW Coeff of Nick 15.3 H (11.5-14.5) % Plt Count 184 (130-400) K/uL MPV 13.8 H (7.4-10.4) fL Immature Gran % (Auto) 0.3 % Neut % (Auto) 86.3 % Lymph % (Auto) 8.7 % [place] % (Auto) 4.5 % Eos % (Auto) 0.1 % Baso % (Auto) 0.1 % Immature Gran # (Auto) 0.06 H (0.00-0.02) K/uL Neut # (Auto) 15.38 H (1.4-6.5) K/uL Lymph # (Auto) 1.56 (1.2-3.4) K/uL [place] # (Auto) 0.81 H (0.11-0.59) K/uL Eos # (Auto) 0.01 (0-0.5) K/uL Baso # (Auto) 0.02 (0-0.2) K/uL Absolute Nucleated RBC 0.00 (0-0) K/uL Nucleated RBC % (auto) 0.0 % PT 11.5 (9.0-12.0) Seconds INR 1.1 (0.9-1.1) APTT 26.1 (21.0-31.0) Seconds PTT Ratio 0.9 Sodium 158 H* (136-145) mmol/L Potassium 4.1 (3.5-5.1) mmol/L Chloride 122 H (98-107) mmol/L Carbon Dioxide 32 (21-32) mmol/L Anion Gap 3.0 (3-11) BUN 56 H (7-18) mg/dl Creatinine 1.80 H (0.6-1.4) mg/dl Est Cr Clr Drug Dosing Not Reportable Est GFR ( Amer) 45.7 Est GFR (Non-Af Amer) 39.5 BUN/Creatinine Ratio 31.1 H (10-20) Glucose 487 H* (70-99) mg/dl POC Glucose (70-99) mg/dl Lactate (0.4-2.0) mmol/L Calcium 10.1 (8.5-10.1) mg/dl Magnesium 3.1 H (1.8-2.4) mg/dl Total Bilirubin 0.3 (0.2-1) mg/dl AST 28 (15-37) U/L ALT 32 (12-78) U/L Alkaline Phosphatase 92 (45-117) U/L Troponin I 0.135 H* (0-0.045) ng/ml Total Protein 8.0 (6.4-8.2) gm/dl Albumin 2.5 L (3.4-5.0) gm/dl Globulin 5.5 H (2.5-4.0) gm/dl Albumin/Globulin Ratio 0.5 L (0.9-2) Beta-Hydroxybutyric Acd 1.27 (0.2-2.81) mg/dl Urine Color Urine Appearance (Clear) Urine pH (4.5-7.5) Ur Specific [place] (1.000-1.030) Urine Protein (Negative) Urine Glucose (UA) (Negative) Urine Ketones (Negative) Urine Blood (Negative) Urine Nitrite (Negative) Urine Bilirubin (Negative) Urine Urobilinogen (Negative) Ur Leukocyte Esterase (Negative) Urine WBC (Auto) (0-5) /hpf Urine RBC (Auto) (0-4) /hpf U Hyaline Cast (Auto) (0-5) /lpf U Epithel Cells (Auto) (0-5) /lpf Urine Bacteria (Auto) (Negative) Urine Yeast Influenza Type A (PCR) (Neg) Influenza Type B (PCR) (Neg) 02/08/20 02/08/20 02/08/20 Range/Units 14:20 15:25 15:25 WBC (4.8-10.8) K/uL RBC (4.7-6.1) M/uL Hgb (14.0-18.0) g/dL Hct (42-52) % MCV (80-100) fL MCH (25-34) pg MCHC (32-36) g/dL RDW Std Deviation (36.4-46.3) fL RDW Coeff of Nick (11.5-14.5) % Plt Count (130-400) K/uL MPV (7.4-10.4) fL Immature Gran % (Auto) % Neut % (Auto) % Lymph % (Auto) % [place] % (Auto) % Eos % (Auto) % Baso % (Auto) % Immature Gran # (Auto) (0.00-0.02) K/uL Neut # (Auto) (1.4-6.5) K/uL Lymph # (Auto) (1.2-3.4) K/uL [place] # (Auto) (0.11-0.59) K/uL Eos # (Auto) (0-0.5) K/uL Baso # (Auto) (0-0.2) K/uL Absolute Nucleated RBC (0-0) K/uL Nucleated RBC % (auto) % PT (9.0-12.0) Seconds INR (0.9-1.1) APTT (21.0-31.0) Seconds PTT Ratio Sodium (136-145) mmol/L Potassium (3.5-5.1) mmol/L Chloride (98-107) mmol/L Carbon Dioxide (21-32) mmol/L Anion Gap (3-11) BUN (7-18) mg/dl Creatinine (0.6-1.4) mg/dl Est Cr Clr Drug Dosing Est GFR ( Amer) Est GFR (Non-Af Amer) BUN/Creatinine Ratio (10-20) Glucose (70-99) mg/dl POC Glucose (70-99) mg/dl Lactate 2.8 H* (0.4-2.0) mmol/L Calcium (8.5-10.1) mg/dl Magnesium (1.8-2.4) mg/dl Total Bilirubin (0.2-1) mg/dl AST (15-37) U/L ALT (12-78) U/L Alkaline Phosphatase (45-117) U/L Troponin I (0-0.045) ng/ml Total Protein (6.4-8.2) gm/dl Albumin (3.4-5.0) gm/dl Globulin (2.5-4.0) gm/dl Albumin/Globulin Ratio (0.9-2) Beta-Hydroxybutyric Acd (0.2-2.81) mg/dl Urine Color Dark Yellow Urine Appearance Cloudy A (Clear) Urine pH 5.0 (4.5-7.5) Ur Specific [place] 1.032 H (1.000-1.030) Urine Protein 2+ H (Negative) Urine Glucose (UA) 3+ H (Negative) Urine Ketones Trace H (Negative) Urine Blood 3+ H (Negative) Urine Nitrite Negative (Negative) Urine Bilirubin Negative (Negative) Urine Urobilinogen Negative (Negative) Ur Leukocyte Esterase 2+ H (Negative) Urine WBC (Auto) >30 H (0-5) /hpf Urine RBC (Auto) 0-4 (0-4) /hpf U Hyaline Cast (Auto) 5-10 H (0-5) /lpf U Epithel Cells (Auto) 5-10 H (0-5) /lpf Urine Bacteria (Auto) 1+ H (Negative) Urine Yeast Not Reportable Influenza Type A (PCR) Neg for Influ A (Neg) Influenza Type B (PCR) Neg for Influ B (Neg) 02/08/20 02/08/20 Range/Units 16:00 16:51 WBC (4.8-10.8) K/uL RBC (4.7-6.1) M/uL Hgb (14.0-18.0) g/dL Hct (42-52) % MCV (80-100) fL MCH (25-34) pg MCHC (32-36) g/dL RDW Std Deviation (36.4-46.3) fL RDW Coeff of Nick (11.5-14.5) % Plt Count (130-400) K/uL MPV (7.4-10.4) fL Immature Gran % (Auto) % Neut % (Auto) % Lymph % (Auto) % [place] % (Auto) % Eos % (Auto) % Baso % (Auto) % Immature Gran # (Auto) (0.00-0.02) K/uL Neut # (Auto) (1.4-6.5) K/uL Lymph # (Auto) (1.2-3.4) K/uL [place] # (Auto) (0.11-0.59) K/uL Eos # (Auto) (0-0.5) K/uL Baso # (Auto) (0-0.2) K/uL Absolute Nucleated RBC (0-0) K/uL Nucleated RBC % (auto) % PT (9.0-12.0) Seconds INR (0.9-1.1) APTT (21.0-31.0) Seconds PTT Ratio Sodium (136-145) mmol/L Potassium (3.5-5.1) mmol/L Chloride (98-107) mmol/L Carbon Dioxide (21-32) mmol/L Anion Gap (3-11) BUN (7-18) mg/dl Creatinine (0.6-1.4) mg/dl Est Cr Clr Drug Dosing Est GFR ( Amer) Est GFR (Non-Af Amer) BUN/Creatinine Ratio (10-20) Glucose (70-99) mg/dl POC Glucose 360 H* 384 H* (70-99) mg/dl Lactate (0.4-2.0) mmol/L Calcium (8.5-10.1) mg/dl Magnesium (1.8-2.4) mg/dl Total Bilirubin (0.2-1) mg/dl AST (15-37) U/L ALT (12-78) U/L Alkaline Phosphatase (45-117) U/L Troponin I (0-0.045) ng/ml Total Protein (6.4-8.2) gm/dl Albumin (3.4-5.0) gm/dl Globulin (2.5-4.0) gm/dl Albumin/Globulin Ratio (0.9-2) Beta-Hydroxybutyric Acd (0.2-2.81) mg/dl Urine Color Urine Appearance (Clear) Urine pH (4.5-7.5) Ur Specific [place] (1.000-1.030) Urine Protein (Negative) Urine Glucose (UA) (Negative) Urine Ketones (Negative) Urine Blood (Negative) Urine Nitrite (Negative) Urine Bilirubin (Negative) Urine Urobilinogen (Negative) Ur Leukocyte Esterase (Negative) Urine WBC (Auto) (0-5) /hpf Urine RBC (Auto) (0-4) /hpf U Hyaline Cast (Auto) (0-5) /lpf U Epithel Cells (Auto) (0-5) /lpf Urine Bacteria (Auto) (Negative) Urine Yeast Influenza Type A (PCR) (Neg) Influenza Type B (PCR) (Neg) Administered Medications Levofloxacin/Dextrose (Levaquin/D5w) 750 mg in 150 mls @ 100 mls/hr IV Q24H BARBARA Stop: 02/22/20 14:29 Last Infusion: 02/08/20 17:08 Dose: 0 mls/hr Documented by: [id number] Admin: 02/08/20 15:26 Dose: 100 mls/hr Documented by: [id number] Insulin Human Regular 250 (units/ Sodium Chloride) 250 mls @ 2.7 mls/hr IV .Q24H BARBARA; Protocol Stop: 03/09/20 15:29 Last Admin: 02/08/20 16:48 Dose: 2.7 units/hr, 2.7 mls/hr Documented by: [id number] Cosigned by: [id number] Vancomycin HCl 1,500 mg/ (Sodium Chloride) 530 mls @ 200 mls/hr IV NOW ONE Stop: 02/08/20 18:32 Last Admin: 02/08/20 16:44 Dose: 200 mls/hr Documented by: [id number] Miscellaneous Information (Consult) 1 ea N/A UD PRN PRN Reason: Consult Stop: 03/09/20 15:53 Last Admin: 02/08/20 16:48 Dose: 1 ea Documented by: [id number] Discontinued Medications Sodium Chloride (Nss 1000ml) 2,000 mls @ 999 mls/hr IV .Q2H1M ONE Stop: 02/08/20 16:26 Last Infusion: 02/08/20 16:43 Dose: 0 mls/hr Documented by: [id number] Admin: 02/08/20 14:29 Dose: 999 mls/hr Documented by: [id number] Cefepime HCl 1,000 mg/ Syringe 11.3 mls @ 5.5 mls/min IV NOW STA; Protocol Stop: 02/08/20 14:28 Last Admin: 02/08/20 15:26 Dose: 5.5 mls/min Documented by: [id number] Insulin Human Regular (Novolin R Bolus From Bag) 2.5 units IV ONE ONE Stop: 02/08/20 16:16 Last Admin: 02/08/20 17:00 Dose: 2.5 units Documented by: [id number] Cosigned by: [id number] Miscellaneous (Insulin Protocol Goal Range) 1 ea N/A ONE ONE Stop: 02/08/20 15:26 Last Admin: 02/08/20 16:48 Dose: 1 ea Documented by: [id number] Miscellaneous (Insulin Protocol Severe Stress) 1 ea N/A ONE ONE Stop: 02/08/20 15:26 Last Admin: 02/08/20 16:48 Dose: 1 ea Documented by: [id number] Discharge Plan Visit Data Chief Complaint: Illness ED Provider: Issa Galloway Discharge Problem: Sepsis, Pneumonia, Acute hypernatremia, Acute hyperglycemia, Acute dehydration Forms Stand Alone Forms: [facility] Prescriptions Prescriptions: No Action atorvastatin [Lipitor] 20 mg Tablet 20 mg Feeding Tube HS RF: 0 ipratropium-albuterol 0.5 mg-3 mg(2.5 mg base)/3 mL Solution For Nebulization 3 ml INHALATION Q6H RF: 0 citalopram [Celexa] 40 mg Tablet 40 mg Feeding Tube DAILY RF: 0 trazodone 50 mg Tablet 50 mg Feeding Tube BID RF: 0 guaifenesin [Ri-Tussin] 100 mg/5 mL Liquid 10 ml Feeding Tube Q6H RF: 0 metformin [Glucophage] 1,000 mg Tablet 1,000 mg Feeding Tube BIDM RF: 0 budesonide [Pulmicort] 0.5 mg/2 mL Suspension For Nebulization 0.5 mg INHALATION TID RF: 0 carbamazepine [Tegretol] 100 mg/5 mL Suspension 100 mg Feeding Tube HS RF: 0 levetiracetam [Keppra] 100 mg/mL Solution 10 ml Feeding Tube BID RF: 0 carbamazepine 200 mg/10 mL Suspension 400 mg Feeding Tube BID RF: 0 Xarelto 20 mg Tablet 20 mg G-Tube DAILY RF: 0 ammonium lactate [Ivette-Hydrolac] 12 % Cream 1 applic TOPICAL BID RF: 0 acetaminophen 650 mg/20.3 mL Solution 650 mg feeding tube Q6H PRN (Reason: Pain or Fever < 101) RF: 0 Lantus Solostar U-100 Insulin 100 unit/mL (3 mL) insulin pen 0 unit SUBCUT BID RF: 0 100 Ml Free Water Flush 100 ml feeding tube Q4H RF: 0 docusate sodium 50 mg/5 mL Liquid 100 mg PO Q3D RF: 0 Lantus U-100 Insulin 100 unit/mL Solution 0 unit SUBCUT BID RF: 0 magnesium hydroxide [Milk of Magnesia] 400 mg/5 mL Suspension 30 ml feeding tube UD PRN (Reason: Constipation) RF: 0 bisacodyl [Dulcolax (bisacodyl)] 10 mg Suppository 10 mg AZ UD PRN (Reason: Constipation) RF: 0 Enema 19-7 gram/118 mL Enema 118 ml AZ UD PRN (Reason: Constipation) RF: 0 Glucagon Emergency Kit (human) 1 mg Recon Soln 1 mg IM UD PRN (Reason: Blood surgar < 60mg/dl) RF: 0 omeprazole 20 mg Capsule,Delayed Release(Dr/Ec) 20 mg feeding tube DAILY RF: 0 aspirin 81 mg Tablet,Chewable 81 mg feeding tube DAILY RF: 0 insulin lispro [Humalog U-100 Insulin] 100 unit/mL Solution 20 unit SUBCUT DAILY PRN (Reason: Elevated blood sugar 534) RF: 0 levofloxacin [Levaquin] 500 mg Tablet 500 mg PO DAILY RF: 0 simethicone [Gas Relief (simethicone)] 80 mg Tablet,Chewable 80 mg PO Q6H PRN (Reason: Gas) RF: 0 Stress Formula Tablet 1 tab feeding tube DAILY RF: 0 Florastor 250 mg Capsule 250 mg feeding tube TID RF: 0 Barrier Cream 1 applic topical UD RF: 0 Discharge Problem: Sepsis Qualifiers: Sepsis type: sepsis due to unspecified organism Sepsis acute organ dysfunction status: unspecified Qualified Code(s): A41.9 - Sepsis, unspecified organism Pneumonia Qualifiers: Pneumonia type: due to unspecified organism Laterality: unspecified laterality Lung location: unspecified part of lung Qualified Code(s): J18.9 - Pneumonia, unspecified organism
--- NOTE | 2020-02-08 15:01 | XRay Report ---
XR chest 1V portable CLINICAL HISTORY: SEPSIS dyspnea COMPARISON STUDY: 06/08/2018 FINDINGS: Minimal parenchymal infiltrate medial aspect left base. Platelike atelectasis left base. Padmini ngs otherwise appear clear. Several old right sided healed rib fractures. IMPRESSION: 1. Small parenchymal infiltrate medial aspect left base. 2. Platelike atelectasis left base. ACT 112: Negative or not required by law. The above report was generated using voice recognition software. It may contain grammatical, syntax or spelling errors. Electronically signed by: Winston Lozano M.D. 02/08/2020 2:59 PM
[2020-02-08 15:05] LABS: INR 1.1 (0.9-1.1); Partial Thromboplastin Ratio 0.9; Partial Thromboplastin Time 26.1 Seconds (21.0-31.0); Prothrombin Time 11.5 Seconds (9.0-12.0)
[2020-02-08 15:08] LABS: Alanine Aminotransferase 32 U/L (12-78); Albumin Globulin Ratio 0.5 (0.9-2); Albumin Level 2.5 gm/dl (3.4-5.0); Alkaline Phosphatase 92 U/L (45-117); Aspartate Aminotransferase 28 U/L (15-37); BUN Creatinine Ratio 31.1 (10-20); Bilirubin,Total 0.3 mg/dl (0.2-1); Blood Urea Nitrogen 56 mg/dl (7-18); Calcium 10.1 mg/dl (8.5-10.1); Carbon Dioxide 32 mmol/L (21-32); Chloride 122 mmol/L (98-107); Est GFR (African American) 45.7; Est GFR (Non-African American) 39.5; Globulin 5.5 gm/dl (2.5-4.0); Glucose 487 mg/dl (70-99); Magnesium 3.1 mg/dl (1.8-2.4); Potassium 4.1 mmol/L (3.5-5.1); Sodium 158 mmol/L (136-145); Troponin I 0.135 ng/ml (0-0.045)
[2020-02-08 15:23] LABS: Beta-Hydroxybutyrate 1.27 mg/dl (0.2-2.81)
[2020-02-08] MEDS ORDERED: INSULIN PROTOCOL GOAL RANGE ONE (15:25)
[2020-02-08] MEDS ORDERED: SEVERE STRESS LEVEL ONE (15:25)
[2020-02-08 15:26] LABS: Influenza A virus by PCR Neg for Influ A (Neg); Influenza B virus by PCR Neg for Influ B (Neg)
[2020-02-08 15:52] LABS: Appearance Urine Cloudy (Clear); Bacteria Urine Automated 1+ (Negative); Blood Urine 3+ (Negative); Color Urine Dark Yellow; Glucose Urine UA 3+ (Negative); Ketones Urine Trace (Negative); Leukocyte Esterase Urine 2+ (Negative); Nitrite Urine Negative (Negative); Protein Urine 2+ (Negative); RBC Urine Automated 0-4 /hpf (0-4); Specific Gravity Urine 1.032 (1.000-1.030); Urobilinogen Urine Negative (Negative); WBC Urine Automated >30 /hpf (0-5)
[2020-02-08] MEDS ORDERED: VANCOMYCIN CONSULT ACTIVE PRN ×2 (15:54→18:37)
[2020-02-08] MEDS ORDERED: VANCOMYCIN HCL 1,500 MG in SODIUM CHLORIDE 0.9% 500 ML IV ONE (15:54)
[2020-02-08 16:14] LABS: Bilirubin Urine Negative (Negative); Ictotest Urine Negative (Negative)
[2020-02-08] MEDS ORDERED: NovoLIN-R BOLUS FROM BAG IV ONE (16:15)
[2020-02-08] MEDS: INSULIN REGULAR 250 UNITS in SODIUM CHLORIDE 0.9% 247.5 ML IV SCH (16:48)
[2020-02-08] MEDS ORDERED: PHARMACY GLYCEMIC MGMT CONSULT STA (16:57)
[2020-02-08] MEDS ORDERED: SODIUM CHLORIDE 0.45 % 1,000 ML IV SCH (17:00)
--- NOTE | 2020-02-08 17:01 | History & Physical Report ---
Date of Service February 08, 2020 Assessment & Plan (1) Sepsis: With tachycardia, tachypnea, hypoxia, elevated lactate, leukocytosis, hypotension, fever, and left lower lobe infiltrate on chest x-ray as well as abnormal UA as potential sources of infection Has a history of aspiration pneumonia and also resides in a jail facility Had human metapneumovirus 2 and half weeks ago Repeat viral respiratory panel here negative COVID-19 test is pending -Admit to telemetry unit -Treating with copious IV fluids, broad-spectrum IV antibiotics -Follow lactate, CBC, CMP -Blood pressures improved with IV fluid resuscitation -Follow blood cultures, urine culture, it is unlikely he will be able to give a sputum sample (2) Pneumonia: With left lower lobe infiltrate on chest x-ray He is profoundly dehydrated on admission and a chest x-ray will likely fluff out with more of an infiltrate after hydration -Repeat chest x-ray in the morning -He has from a healthcare facility and has a history of MRSA as well as aspiration pneumonia -Received cefepime, vancomycin, and levofloxacin in the ER x1 dose each -Check MRSA nasal swab-continue vancomycin for now but can discontinue if MRSA swab negative -Start IV Zosyn to cover for gram-negative pneumonia and anaerobes in the case of aspiration, continue IV levofloxacin for atypical coverage -Check CRP, ferritin, LDH, d-dimer, procalcitonin with next labs at midnight -Checking [id number] be the send out to [facility] as per discussion with Dr. Saenz -Supplemental O2 as needed to keep pulse ox greater than 92% -Avoid steroids at this time -Continue duo nebs -Continue budesonide nebulized (3) Acute and chronic respiratory failure: Chronically on 2 L nasal cannula at nighttime With a history of COPD With rhonchi and wheezing on examination -Continue nebulizers and inhaled steroids as above -Supplemental O2 to keep pulse ox greater than 92% -Treating pneumonia as above (4) Acute hypernatremia: Corrected sodium for hyperglycemia is 167 Free water deficit is 6.7 L Was given 2 L of normal saline in the ER -Start half-normal saline at 125 mL's per hour and add potassium chloride as will be on insulin drip -Follow BMP every 4 hours -Also receiving free water flushes-we will increase home dose to 125 mL's free water every 4 hours through PEG tube (5) Acute dehydration: Secondary to febrile illness, PEG tube dependence, and severe hyperglycemia -IV fluids and insulin drip (6) Type 2 diabetes mellitus with hyperglycemia: With HHS Glucose in the mid 500s on admission with profound dehydration as above Insulin drip Glycemic consult to help manage Convert to basal bolus insulin when improved -IV fluids and potassium replacement -Following serial chemistry labs Check hemoglobin A1c Holding home metformin (7) BEBE (acute kidney injury): With creatinine of 1.8 on admission Giving IV fluids -Follow BMP Secondary to hyperglycemia and dehydration (8) Epilepsy: No obvious seizures -Continue home Tegretol and Keppra Monitor (9) GERD (gastroesophageal reflux disease): Continue PPI through PEG tube (10) History of CVA (cerebrovascular accident): With a history of right-sided hemiparesis and significant aphasia, with PEG tube and total care -Continue on Xarelto, aspirin, statin -Frequent turning and total care (11) COPD (chronic obstructive pulmonary disease): With chronic O2 With rhonchi and wheezing here -Avoiding steroids for now in case of COVID-19 infection -Continue DuoNebs every 6 hours and budesonide nebs twice daily (12) HLD (hyperlipidemia): Continue statin (13) PVD (peripheral vascular disease): Continue aspirin, statin (14) CKD (chronic kidney disease): Baseline creatinine 0.6 With acute kidney injury as above -Avoid nephrotoxins -renally dose meds when appropriate -follow BMP (15) Elevated troponin: Troponin elevated at 0.1 on admission, likely secondary to demand ischemia from sepsis and profound dehydration -Trend serial troponin ECG without ischemic changes Impossible to tell if he is symptomatic He would be a very poor candidate for intervention and this would likely be against his sister's wishes to avoid aggressive intervention -Consider echocardiogram in the morning to look for wall motion abnormalities (16) History of venous thrombosis and embolism: With a history of extensive DVT/PE in 2018 -Continue Xarelto (17) DVT prophylaxis: Xarelto Disposition-admit to medical floor with telemetry DNR/DNI is confirmed with his healthcare power of title attorney/sister on the phone- okay with IV fluids, artificial nutrition through PEG tube, and IV antibiotics Prognosis is guarded, critical condition History of Present Illness Chief Complaint: Fever, lethargy Primary Care Provider: [facility] This patient is a 64-year-old male with a history of CVA with hemiparesis, aphasia, COPD with chronic respiratory failure with hypoxia, DVT/PE on Xarelto, HTN, seizure disorder, aspiration pneumonia, PEG tube, DM 2, who resides long[facility] term at a jail with total care. He presents after having a fever for the last 24 hours with worsening hyperglycemia and lethargy. The patient is completely nonverbal and unable to provide any history on admission. Records from the jail were reviewed. He was started on Levaquin for suspected aspiration pneumonia based on a chest x-ray obtained as an outpatient yesterday. He was treated with increased doses of insulin for his hyperglycemia. However, laboratories drawn yesterday were reported today with severe hyperglycemia, renal failure. And given ongoing fevers, tachycardia, and worsening hypoxia, the patient was sent to the ER for further evaluation. He has no known exposure to COVID-19 and had a negative COVID-19 test on 01/21, however at that time he was positive for human metapneumovirus. In the ER, he was found to have significant hyperglycemia here with lactic acidosis, sepsis, and a left lower lobe pneumonia. He was also found to be hypoxic requiring 5-6 L via oxygen mask and profoundly hypernatremic due to severe dehydration. He was febrile, tachycardic, and hypotensive which improved with bolused IV fluids He was given IV fluids, IV cefepime, levofloxacin, and vancomycin in the ER for broad-spectrum coverage. He was also started on insulin drip for blood sugar in the 500s. I discussed his case with his healthcare power of title attorney and sister, Trudy, on the phone. She confirmed that he is a DNR/DNI, but she is okay with continued IV antibiotics, IV fluids, and artificial nutrition through his PEG tube. Allergies Allergy/AdvReac Type Severity Reaction Status Date / Time bee venom protein (honey bee) Allergy Unknown LISTED ON Verified 02/08/20 15:27 MAR pseudoephedrine Allergy Unknown UNKNOWN Verified 02/08/20 15:27 Home Medications Home Medications Medication Instructions Recorded Confirmed Type Xarelto 20 mg G-TUBE DAILY 11/01/18 02/08/20 History atorvastatin [Lipitor] 20 mg FEEDING TUBE HS 11/01/18 02/08/20 History budesonide [Pulmicort] 0.5 mg INHALATION TID 11/01/18 02/08/20 History carbamazepine 400 mg FEEDING TUBE BID 11/01/18 02/08/20 History carbamazepine [Tegretol] 100 mg FEEDING TUBE HS 11/01/18 02/08/20 History citalopram [Celexa] 40 mg FEEDING TUBE DAILY 11/01/18 02/08/20 History guaifenesin [Ri-Tussin] 10 ml FEEDING TUBE Q6H 11/01/18 02/08/20 History ipratropium-albuterol 3 ml INHALATION Q6H 11/01/18 02/08/20 History levetiracetam [Keppra] 10 ml FEEDING TUBE BID 11/01/18 02/08/20 History metformin [Glucophage] 1,000 mg FEEDING TUBE BIDM 11/01/18 02/08/20 History trazodone 50 mg FEEDING TUBE BID 11/01/18 02/08/20 History acetaminophen 650 mg FEEDING TUBE Q6H PRN 10/04/19 02/08/20 History ammonium lactate [Ivette-Hydrolac] 1 applic TOPICAL BID 10/04/19 02/08/20 History insulin glargine [Lantus Solostar 0 unit SUBCUT BID 10/04/19 02/08/20 History U-100 Insulin] 100 Ml Free Water Flush 100 ml FEEDING TUBE Q4H 02/08/20 02/08/20 History Barrier Cream 1 applic TOPICAL UD 02/08/20 02/08/20 History Saccharomyces boulardii [Florastor] 250 mg FEEDING TUBE TID 02/08/20 02/08/20 History aspirin 81 mg FEEDING TUBE DAILY 02/08/20 02/08/20 History bisacodyl [Dulcolax (bisacodyl)] 10 mg DE UD PRN 02/08/20 02/08/20 History docusate sodium 100 mg PO Q3D 02/08/20 02/08/20 History glucagon (human recombinant) 1 mg IM UD PRN 02/08/20 02/08/20 History [Glucagon Emergency Kit (human)] insulin glargine [Lantus U-100 0 unit SUBCUT BID 02/08/20 02/08/20 History Insulin] insulin lispro [Humalog U-100 20 unit SUBCUT DAILY PRN 02/08/20 02/08/20 History Insulin] levofloxacin [Levaquin] 500 mg PO DAILY 02/08/20 02/08/20 History magnesium hydroxide [Milk of 30 ml FEEDING TUBE UD PRN 02/08/20 02/08/20 History Magnesia] multivitamin, stress formula 1 tab FEEDING TUBE DAILY 02/08/20 02/08/20 History [Stress Formula] omeprazole 20 mg FEEDING TUBE DAILY 02/08/20 02/08/20 History simethicone [Gas Relief 80 mg PO Q6H PRN 02/08/20 02/08/20 History (simethicone)] sodium phosphates [Enema] 118 ml DE UD PRN 02/08/20 02/08/20 History Past Med/Surg History Medical History Aphasia Asthma Chronic respiratory failure with hypoxia CKD (chronic kidney disease) (Chronic) stage 2 Conversion disorder with seizures or convulsions COPD (chronic obstructive pulmonary disease) (Acute) Diabetes (Chronic) type 2 Difficulty in walking DVT (deep venous thrombosis) Dysphasia as late effect of cerebrovascular accident (CVA) (Chronic) Epilepsy (Chronic) Epilepsy with status epilepticus Gastrostomy infection Generalized muscle weakness GERD (gastroesophageal reflux disease) GERD (gastroesophageal reflux disease) 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 History of CVA (cerebrovascular accident) (Acute) 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 History of venous thrombosis and embolism HLD (hyperlipidemia) (Chronic) Hypertension Hypertension Pneumonia (Acute) Pressure ulcer of right buttock, stage 2 PVD (peripheral vascular disease) Tinea unguium Unspecified mood [affective] disorder Surgical History Status post insertion of percutaneous endoscopic gastrostomy (PEG) tube Surgical history unknown Family History Other Family history non-contributory Social History Preferred Language: Amharic Communication Ability: Unable 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 current occupational status: disabled Other Information That Helps Us Care for You: No Feels Safe at Home: Declines to Answer Smoking Status: Unknown if ever smoked Hx Alcohol Use: No Hx Substance Use: No Review of Systems Review of Systems: Unobtainable due to cognitive status and Unobtainable due to reduced consciousness Physical Exam Constitutional: + ill appearing, + thin, + cachectic and + lethargic; no acute distress Eyes: + conjunctival abnormality (Mild erythema and watery discharge OU) and + anicteric sclerae ENMT: Nose: no nasal discharge Mouth: + oral mucosal abnormality (Dry mucous membranes) Neck: trachea midline, no thyromegaly Respiratory: no labored breathing Auscultation: + rhonchi (Diffusely) and + wheezes (Bilateral) Cardiovascular: Rate/Rhythm: regular rhythm and + tachycardic Heart Sounds: no murmur Extremities: no edema Chest (Breasts): Chest: normal inspection of chest Gastrointestinal (Abdomen): Inspection/Auscultation: normal bowel sounds; + abdomen abnormal to inspection (With PEG tube in place) and abdomen not distended Percussion/Palpation: abdomen soft; abdomen nontender Musculoskeletal: Extremities: + extremities abnormal to inspection (With sarcopenia), no cyanosis and no clubbing Skin: + rash (With dry skin with pinkish areas of rash on lower abdomen) Neurologic: + focal motor deficit (Right-sided hemiparesis) Speech / Cognition: + expressive aphasia Genitourinary: no penis abnormality (Grace catheter in place) Lymphatic: no lymphedema Results & Data Results & Data ([facility]) Vital Signs (Past 12 Hours) Vital Signs Temp Pulse Resp BP Pulse Ox 02/08/20 15:30 106 H 24 134/79 95 02/08/20 15:25 111 H 21 96/79 L 93 02/08/20 15:20 110 H 26 H 93 02/08/20 15:10 108 H 25 H 94 02/08/20 15:00 110 H 26 H 94 02/08/20 14:50 108 H 21 94 02/08/20 14:40 112 H 28 H 95 02/08/20 14:30 115 H 33 H 92 02/08/20 14:27 38.1 C H 120 H 30 H 116/78 88 L 02/08/20 14:20 120 H 30 H 88 L 02/08/20 14:16 121 H 31 H 87 L 02/08/20 14:10 121 H 32 H 116/82 87 L 02/08/20 14:00 128 H 23 155/104 H Laboratory Results 02/08/20 02/08/20 02/08/20 Range/Units 21:31 20:28 20:28 WBC (4.8-10.8) K/uL RBC (4.7-6.1) M/uL Hgb (14.0-18.0) g/dL Hct (42-52) % MCV (80-100) fL MCH (25-34) pg MCHC (32-36) g/dL RDW Std Deviation (36.4-46.3) fL RDW Coeff of Nick (11.5-14.5) % Plt Count (130-400) K/uL MPV (7.4-10.4) fL Immature Gran % (Auto) % Neut % (Auto) % Lymph % (Auto) % [place] % (Auto) % Eos % (Auto) % Baso % (Auto) % Immature Gran # (Auto) (0.00-0.02) K/uL Neut # (Auto) (1.4-6.5) K/uL Lymph # (Auto) (1.2-3.4) K/uL [place] # (Auto) (0.11-0.59) K/uL Eos # (Auto) (0-0.5) K/uL Baso # (Auto) (0-0.2) K/uL Absolute Nucleated RBC (0-0) K/uL Nucleated RBC % (auto) % Macrocytosis PT (9.0-12.0) Seconds INR (0.9-1.1) APTT (21.0-31.0) Seconds PTT Ratio VBG pH 7.31 L (7.36-7.41) Sodium 164 H* (136-145) mmol/L Potassium 3.9 (3.5-5.1) mmol/L Chloride 130 H (98-107) mmol/L Carbon Dioxide 32 (21-32) mmol/L Anion Gap 1.0 L (3-11) BUN 44 H (7-18) mg/dl Creatinine 1.31 D (0.6-1.4) mg/dl Est Cr Clr Drug Dosing 59.5 Est GFR ( Amer) 67.2 Est GFR (Non-Af Amer) 57.9 BUN/Creatinine Ratio 33.3 H (10-20) Glucose 272 H (70-99) mg/dl POC Glucose 288 H (70-99) mg/dl Lactate (0.4-2.0) mmol/L Calcium 8.6 (8.5-10.1) mg/dl Phosphorus 3.4 (2.5-4.9) mg/dl Magnesium 2.6 H (1.8-2.4) mg/dl Total Bilirubin (0.2-1) mg/dl AST (15-37) U/L ALT (12-78) U/L Alkaline Phosphatase (45-117) U/L Troponin I (0-0.045) ng/ml Total Protein (6.4-8.2) gm/dl Albumin (3.4-5.0) gm/dl Globulin (2.5-4.0) gm/dl Albumin/Globulin Ratio (0.9-2) Beta-Hydroxybutyric Acd (0.2-2.81) mg/dl Urine Color Urine Appearance (Clear) Urine pH (4.5-7.5) Ur Specific [place] (1.000-1.030) Urine Protein (Negative) Urine Glucose (UA) (Negative) Urine Ketones (Negative) Urine Blood (Negative) Urine Nitrite (Negative) Urine Bilirubin (Negative) Urine Urobilinogen (Negative) Ur Leukocyte Esterase (Negative) Urine WBC (Auto) (0-5) /hpf Urine RBC (Auto) (0-4) /hpf U Hyaline Cast (Auto) (0-5) /lpf U Epithel Cells (Auto) (0-5) /lpf Urine Bacteria (Auto) (Negative) Urine Yeast Nasal Screen MRSA (PCR) (Negative) Adenovirus (PCR) (NotDetected) B. pertussis DNA (PCR) (NotDetected) B.parapertussis DNA PCR (NotDetected) C. pneumoniae DNA (PCR) (NotDetected) Coronavirus OC43 (PCR) (NotDetected) Coronavirus HKU1 (PCR) (NotDetected) Coronavirus 229E (PCR) (NotDetected) Coronavirus NL63 (PCR) (NotDetected) Human Metapneumovir PCR (NotDetected) Influenza Type A (PCR) (Neg) Influenza Type B (PCR) (Neg) M. pneumoniae (PCR) (NotDetected) Parainfluenza 1 (PCR) (NotDetected) Parainfluenza 2 (PCR) (NotDetected) Parainfluenza 3 (PCR) (NotDetected) Parainfluenza 4 (PCR) (NotDetected) RSV (PCR) (NotDetected) Entero/Rhino (PCR) (NotDetected) SARS-CoV-2 RNA (RT-PCR) 02/08/20 02/08/20 02/08/20 Range/Units 20:20 18:58 18:38 WBC (4.8-10.8) K/uL RBC (4.7-6.1) M/uL Hgb (14.0-18.0) g/dL Hct (42-52) % MCV (80-100) fL MCH (25-34) pg MCHC (32-36) g/dL RDW Std Deviation (36.4-46.3) fL RDW Coeff of Nick (11.5-14.5) % Plt Count (130-400) K/uL MPV (7.4-10.4) fL Immature Gran % (Auto) % Neut % (Auto) % Lymph % (Auto) % [place] % (Auto) % Eos % (Auto) % Baso % (Auto) % Immature Gran # (Auto) (0.00-0.02) K/uL Neut # (Auto) (1.4-6.5) K/uL Lymph # (Auto) (1.2-3.4) K/uL [place] # (Auto) (0.11-0.59) K/uL Eos # (Auto) (0-0.5) K/uL Baso # (Auto) (0-0.2) K/uL Absolute Nucleated RBC (0-0) K/uL Nucleated RBC % (auto) % Macrocytosis PT (9.0-12.0) Seconds INR (0.9-1.1) APTT (21.0-31.0) Seconds PTT Ratio VBG pH (7.36-7.41) Sodium (136-145) mmol/L Potassium (3.5-5.1) mmol/L Chloride (98-107) mmol/L Carbon Dioxide (21-32) mmol/L Anion Gap (3-11) BUN (7-18) mg/dl Creatinine (0.6-1.4) mg/dl Est Cr Clr Drug Dosing Est GFR ( Amer) Est GFR (Non-Af Amer) BUN/Creatinine Ratio (10-20) Glucose (70-99) mg/dl POC Glucose 295 H (70-99) mg/dl Lactate 2.2 H* (0.4-2.0) mmol/L Calcium (8.5-10.1) mg/dl Phosphorus (2.5-4.9) mg/dl Magnesium (1.8-2.4) mg/dl Total Bilirubin (0.2-1) mg/dl AST (15-37) U/L ALT (12-78) U/L Alkaline Phosphatase (45-117) U/L Troponin I (0-0.045) ng/ml Total Protein (6.4-8.2) gm/dl Albumin (3.4-5.0) gm/dl Globulin (2.5-4.0) gm/dl Albumin/Globulin Ratio (0.9-2) Beta-Hydroxybutyric Acd (0.2-2.81) mg/dl Urine Color Urine Appearance (Clear) Urine pH (4.5-7.5) Ur Specific [place] (1.000-1.030) Urine Protein (Negative) Urine Glucose (UA) (Negative) Urine Ketones (Negative) Urine Blood (Negative) Urine Nitrite (Negative) Urine Bilirubin (Negative) Urine Urobilinogen (Negative) Ur Leukocyte Esterase (Negative) Urine WBC (Auto) (0-5) /hpf Urine RBC (Auto) (0-4) /hpf U Hyaline Cast (Auto) (0-5) /lpf U Epithel Cells (Auto) (0-5) /lpf Urine Bacteria (Auto) (Negative) Urine Yeast Nasal Screen MRSA (PCR) Positive A (Negative) Adenovirus (PCR) (NotDetected) B. pertussis DNA (PCR) (NotDetected) B.parapertussis DNA PCR (NotDetected) C. pneumoniae DNA (PCR) (NotDetected) Coronavirus OC43 (PCR) (NotDetected) Coronavirus HKU1 (PCR) (NotDetected) Coronavirus 229E (PCR) (NotDetected) Coronavirus NL63 (PCR) (NotDetected) Human Metapneumovir PCR (NotDetected) Influenza Type A (PCR) (Neg) Influenza Type B (PCR) (Neg) M. pneumoniae (PCR) (NotDetected) Parainfluenza 1 (PCR) (NotDetected) Parainfluenza 2 (PCR) (NotDetected) Parainfluenza 3 (PCR) (NotDetected) Parainfluenza 4 (PCR) (NotDetected) RSV (PCR) (NotDetected) Entero/Rhino (PCR) (NotDetected) SARS-CoV-2 RNA (RT-PCR) 02/08/20 02/08/20 02/08/20 Range/Units 18:04 16:51 16:00 WBC (4.8-10.8) K/uL RBC (4.7-6.1) M/uL Hgb (14.0-18.0) g/dL Hct (42-52) % MCV (80-100) fL MCH (25-34) pg MCHC (32-36) g/dL RDW Std Deviation (36.4-46.3) fL RDW Coeff of Nick (11.5-14.5) % Plt Count (130-400) K/uL MPV (7.4-10.4) fL Immature Gran % (Auto) % Neut % (Auto) % Lymph % (Auto) % [place] % (Auto) % Eos % (Auto) % Baso % (Auto) % Immature Gran # (Auto) (0.00-0.02) K/uL Neut # (Auto) (1.4-6.5) K/uL Lymph # (Auto) (1.2-3.4) K/uL [place] # (Auto) (0.11-0.59) K/uL Eos # (Auto) (0-0.5) K/uL Baso # (Auto) (0-0.2) K/uL Absolute Nucleated RBC (0-0) K/uL Nucleated RBC % (auto) % Macrocytosis PT (9.0-12.0) Seconds INR (0.9-1.1) APTT (21.0-31.0) Seconds PTT Ratio VBG pH (7.36-7.41) Sodium (136-145) mmol/L Potassium (3.5-5.1) mmol/L Chloride (98-107) mmol/L Carbon Dioxide (21-32) mmol/L Anion Gap (3-11) BUN (7-18) mg/dl Creatinine (0.6-1.4) mg/dl Est Cr Clr Drug Dosing Est GFR ( Amer) Est GFR (Non-Af Amer) BUN/Creatinine Ratio (10-20) Glucose (70-99) mg/dl POC Glucose 310 H* 384 H* 360 H* (70-99) mg/dl Lactate (0.4-2.0) mmol/L Calcium (8.5-10.1) mg/dl Phosphorus (2.5-4.9) mg/dl Magnesium (1.8-2.4) mg/dl Total Bilirubin (0.2-1) mg/dl AST (15-37) U/L ALT (12-78) U/L Alkaline Phosphatase (45-117) U/L Troponin I (0-0.045) ng/ml Total Protein (6.4-8.2) gm/dl Albumin (3.4-5.0) gm/dl Globulin (2.5-4.0) gm/dl Albumin/Globulin Ratio (0.9-2) Beta-Hydroxybutyric Acd (0.2-2.81) mg/dl Urine Color Urine Appearance (Clear) Urine pH (4.5-7.5) Ur Specific [place] (1.000-1.030) Urine Protein (Negative) Urine Glucose (UA) (Negative) Urine Ketones (Negative) Urine Blood (Negative) Urine Nitrite (Negative) Urine Bilirubin (Negative) Urine Urobilinogen (Negative) Ur Leukocyte Esterase (Negative) Urine WBC (Auto) (0-5) /hpf Urine RBC (Auto) (0-4) /hpf U Hyaline Cast (Auto) (0-5) /lpf U Epithel Cells (Auto) (0-5) /lpf Urine Bacteria (Auto) (Negative) Urine Yeast Nasal Screen MRSA (PCR) (Negative) Adenovirus (PCR) (NotDetected) B. pertussis DNA (PCR) (NotDetected) B.parapertussis DNA PCR (NotDetected) C. pneumoniae DNA (PCR) (NotDetected) Coronavirus OC43 (PCR) (NotDetected) Coronavirus HKU1 (PCR) (NotDetected) Coronavirus 229E (PCR) (NotDetected) Coronavirus NL63 (PCR) (NotDetected) Human Metapneumovir PCR (NotDetected) Influenza Type A (PCR) (Neg) Influenza Type B (PCR) (Neg) M. pneumoniae (PCR) (NotDetected) Parainfluenza 1 (PCR) (NotDetected) Parainfluenza 2 (PCR) (NotDetected) Parainfluenza 3 (PCR) (NotDetected) Parainfluenza 4 (PCR) (NotDetected) RSV (PCR) (NotDetected) Entero/Rhino (PCR) (NotDetected) SARS-CoV-2 RNA (RT-PCR) 02/08/20 02/08/20 02/08/20 Range/Units 15:30 15:30 15:25 WBC (4.8-10.8) K/uL RBC (4.7-6.1) M/uL Hgb (14.0-18.0) g/dL Hct (42-52) % MCV (80-100) fL MCH (25-34) pg MCHC (32-36) g/dL RDW Std Deviation (36.4-46.3) fL RDW Coeff of Nick (11.5-14.5) % Plt Count (130-400) K/uL MPV (7.4-10.4) fL Immature Gran % (Auto) % Neut % (Auto) % Lymph % (Auto) % [place] % (Auto) % Eos % (Auto) % Baso % (Auto) % Immature Gran # (Auto) (0.00-0.02) K/uL Neut # (Auto) (1.4-6.5) K/uL Lymph # (Auto) (1.2-3.4) K/uL [place] # (Auto) (0.11-0.59) K/uL Eos # (Auto) (0-0.5) K/uL Baso # (Auto) (0-0.2) K/uL Absolute Nucleated RBC (0-0) K/uL Nucleated RBC % (auto) % Macrocytosis PT (9.0-12.0) Seconds INR (0.9-1.1) APTT (21.0-31.0) Seconds PTT Ratio VBG pH (7.36-7.41) Sodium (136-145) mmol/L Potassium (3.5-5.1) mmol/L Chloride (98-107) mmol/L Carbon Dioxide (21-32) mmol/L Anion Gap (3-11) BUN (7-18) mg/dl Creatinine (0.6-1.4) mg/dl Est Cr Clr Drug Dosing Est GFR ( Amer) Est GFR (Non-Af Amer) BUN/Creatinine Ratio (10-20) Glucose (70-99) mg/dl POC Glucose (70-99) mg/dl Lactate (0.4-2.0) mmol/L Calcium (8.5-10.1) mg/dl Phosphorus (2.5-4.9) mg/dl Magnesium (1.8-2.4) mg/dl Total Bilirubin (0.2-1) mg/dl AST (15-37) U/L ALT (12-78) U/L Alkaline Phosphatase (45-117) U/L Troponin I (0-0.045) ng/ml Total Protein (6.4-8.2) gm/dl Albumin (3.4-5.0) gm/dl Globulin (2.5-4.0) gm/dl Albumin/Globulin Ratio (0.9-2) Beta-Hydroxybutyric Acd (0.2-2.81) mg/dl Urine Color Dark Yellow Urine Appearance Cloudy A (Clear) Urine pH 5.0 (4.5-7.5) Ur Specific [place] 1.032 H (1.000-1.030) Urine Protein 2+ H (Negative) Urine Glucose (UA) 3+ H (Negative) Urine Ketones Trace H (Negative) Urine Blood 3+ H (Negative) Urine Nitrite Negative (Negative) Urine Bilirubin Negative (Negative) Urine Urobilinogen Negative (Negative) Ur Leukocyte Esterase 2+ H (Negative) Urine WBC (Auto) >30 H (0-5) /hpf Urine RBC (Auto) 0-4 (0-4) /hpf U Hyaline Cast (Auto) 5-10 H (0-5) /lpf U Epithel Cells (Auto) 5-10 H (0-5) /lpf Urine Bacteria (Auto) 1+ H (Negative) Urine Yeast Not Reportable Nasal Screen MRSA (PCR) (Negative) Adenovirus (PCR) Not Detected (NotDetected) B. pertussis DNA (PCR) Not Detected (NotDetected) B.parapertussis DNA PCR Not Detected (NotDetected) C. pneumoniae DNA (PCR) Not Detected (NotDetected) Coronavirus OC43 (PCR) Not Detected (NotDetected) Coronavirus HKU1 (PCR) Not Detected (NotDetected) Coronavirus 229E (PCR) Not Detected (NotDetected) Coronavirus NL63 (PCR) Not Detected (NotDetected) Human Metapneumovir PCR Not Detected (NotDetected) Influenza Type A (PCR) Not Detected (Neg) Influenza Type B (PCR) Not Detected (Neg) M. pneumoniae (PCR) Not Detected (NotDetected) Parainfluenza 1 (PCR) Not Detected (NotDetected) Parainfluenza 2 (PCR) Not Detected (NotDetected) Parainfluenza 3 (PCR) Not Detected (NotDetected) Parainfluenza 4 (PCR) Not Detected (NotDetected) RSV (PCR) Not Detected (NotDetected) Entero/Rhino (PCR) Not Detected (NotDetected) SARS-CoV-2 RNA (RT-PCR) Pending 02/08/20 02/08/20 02/08/20 Range/Units 15:25 14:20 14:20 WBC (4.8-10.8) K/uL RBC (4.7-6.1) M/uL Hgb (14.0-18.0) g/dL Hct (42-52) % MCV (80-100) fL MCH (25-34) pg MCHC (32-36) g/dL RDW Std Deviation (36.4-46.3) fL RDW Coeff of Nick (11.5-14.5) % Plt Count (130-400) K/uL MPV (7.4-10.4) fL Immature Gran % (Auto) % Neut % (Auto) % Lymph % (Auto) % [place] % (Auto) % Eos % (Auto) % Baso % (Auto) % Immature Gran # (Auto) (0.00-0.02) K/uL Neut # (Auto) (1.4-6.5) K/uL Lymph # (Auto) (1.2-3.4) K/uL [place] # (Auto) (0.11-0.59) K/uL Eos # (Auto) (0-0.5) K/uL Baso # (Auto) (0-0.2) K/uL Absolute Nucleated RBC (0-0) K/uL Nucleated RBC % (auto) % Macrocytosis PT (9.0-12.0) Seconds INR (0.9-1.1) APTT (21.0-31.0) Seconds PTT Ratio VBG pH (7.36-7.41) Sodium 158 H* (136-145) mmol/L Potassium 4.1 (3.5-5.1) mmol/L Chloride 122 H (98-107) mmol/L Carbon Dioxide 32 (21-32) mmol/L Anion Gap 3.0 (3-11) BUN 56 H (7-18) mg/dl Creatinine 1.80 H (0.6-1.4) mg/dl Est Cr Clr Drug Dosing Not Reportable Est GFR ( Amer) 45.7 Est GFR (Non-Af Amer) 39.5 BUN/Creatinine Ratio 31.1 H (10-20) Glucose 487 H* (70-99) mg/dl POC Glucose (70-99) mg/dl Lactate 2.8 H* (0.4-2.0) mmol/L Calcium 10.1 (8.5-10.1) mg/dl Phosphorus (2.5-4.9) mg/dl Magnesium 3.1 H (1.8-2.4) mg/dl Total Bilirubin 0.3 (0.2-1) mg/dl AST 28 (15-37) U/L ALT 32 (12-78) U/L Alkaline Phosphatase 92 (45-117) U/L Troponin I 0.135 H* (0-0.045) ng/ml Total Protein 8.0 (6.4-8.2) gm/dl Albumin 2.5 L (3.4-5.0) gm/dl Globulin 5.5 H (2.5-4.0) gm/dl Albumin/Globulin Ratio 0.5 L (0.9-2) Beta-Hydroxybutyric Acd 1.27 (0.2-2.81) mg/dl Urine Color Urine Appearance (Clear) Urine pH (4.5-7.5) Ur Specific [place] (1.000-1.030) Urine Protein (Negative) Urine Glucose (UA) (Negative) Urine Ketones (Negative) Urine Blood (Negative) Urine Nitrite (Negative) Urine Bilirubin (Negative) Urine Urobilinogen (Negative) Ur Leukocyte Esterase (Negative) Urine WBC (Auto) (0-5) /hpf Urine RBC (Auto) (0-4) /hpf U Hyaline Cast (Auto) (0-5) /lpf U Epithel Cells (Auto) (0-5) /lpf Urine Bacteria (Auto) (Negative) Urine Yeast Nasal Screen MRSA (PCR) (Negative) Adenovirus (PCR) (NotDetected) B. pertussis DNA (PCR) (NotDetected) B.parapertussis DNA PCR (NotDetected) C. pneumoniae DNA (PCR) (NotDetected) Coronavirus OC43 (PCR) (NotDetected) Coronavirus HKU1 (PCR) (NotDetected) Coronavirus 229E (PCR) (NotDetected) Coronavirus NL63 (PCR) (NotDetected) Human Metapneumovir PCR (NotDetected) Influenza Type A (PCR) Neg for Influ A (Neg) Influenza Type B (PCR) Neg for Influ B (Neg) M. pneumoniae (PCR) (NotDetected) Parainfluenza 1 (PCR) (NotDetected) Parainfluenza 2 (PCR) (NotDetected) Parainfluenza 3 (PCR) (NotDetected) Parainfluenza 4 (PCR) (NotDetected) RSV (PCR) (NotDetected) Entero/Rhino (PCR) (NotDetected) SARS-CoV-2 RNA (RT-PCR) 02/08/20 02/08/20 Range/Units 14:20 14:20 WBC 17.84 H (4.8-10.8) K/uL RBC 4.96 (4.7-6.1) M/uL Hgb 16.5 (14.0-18.0) g/dL Hct 53.6 H (42-52) % MCV 108.1 H (80-100) fL MCH 33.3 (25-34) pg MCHC 30.8 L (32-36) g/dL RDW Std Deviation 59.8 H (36.4-46.3) fL RDW Coeff of Nick 15.3 H (11.5-14.5) % Plt Count 184 (130-400) K/uL MPV 13.8 H (7.4-10.4) fL Immature Gran % (Auto) 0.3 % Neut % (Auto) 86.3 % Lymph % (Auto) 8.7 % [place] % (Auto) 4.5 % Eos % (Auto) 0.1 % Baso % (Auto) 0.1 % Immature Gran # (Auto) 0.06 H (0.00-0.02) K/uL Neut # (Auto) 15.38 H (1.4-6.5) K/uL Lymph # (Auto) 1.56 (1.2-3.4) K/uL [place] # (Auto) 0.81 H (0.11-0.59) K/uL Eos # (Auto) 0.01 (0-0.5) K/uL Baso # (Auto) 0.02 (0-0.2) K/uL Absolute Nucleated RBC 0.00 (0-0) K/uL Nucleated RBC % (auto) 0.0 % Macrocytosis Present PT 11.5 (9.0-12.0) Seconds INR 1.1 (0.9-1.1) APTT 26.1 (21.0-31.0) Seconds PTT Ratio 0.9 VBG pH (7.36-7.41) Sodium (136-145) mmol/L Potassium (3.5-5.1) mmol/L Chloride (98-107) mmol/L Carbon Dioxide (21-32) mmol/L Anion Gap (3-11) BUN (7-18) mg/dl Creatinine (0.6-1.4) mg/dl Est Cr Clr Drug Dosing Est GFR ( Amer) Est GFR (Non-Af Amer) BUN/Creatinine Ratio (10-20) Glucose (70-99) mg/dl POC Glucose (70-99) mg/dl Lactate (0.4-2.0) mmol/L Calcium (8.5-10.1) mg/dl Phosphorus (2.5-4.9) mg/dl Magnesium (1.8-2.4) mg/dl Total Bilirubin (0.2-1) mg/dl AST (15-37) U/L ALT (12-78) U/L Alkaline Phosphatase (45-117) U/L Troponin I (0-0.045) ng/ml Total Protein (6.4-8.2) gm/dl Albumin (3.4-5.0) gm/dl Globulin (2.5-4.0) gm/dl Albumin/Globulin Ratio (0.9-2) Beta-Hydroxybutyric Acd (0.2-2.81) mg/dl Urine Color Urine Appearance (Clear) Urine pH (4.5-7.5) Ur Specific [place] (1.000-1.030) Urine Protein (Negative) Urine Glucose (UA) (Negative) Urine Ketones (Negative) Urine Blood (Negative) Urine Nitrite (Negative) Urine Bilirubin (Negative) Urine Urobilinogen (Negative) Ur Leukocyte Esterase (Negative) Urine WBC (Auto) (0-5) /hpf Urine RBC (Auto) (0-4) /hpf U Hyaline Cast (Auto) (0-5) /lpf U Epithel Cells (Auto) (0-5) /lpf Urine Bacteria (Auto) (Negative) Urine Yeast Nasal Screen MRSA (PCR) (Negative) Adenovirus (PCR) (NotDetected) B. pertussis DNA (PCR) (NotDetected) B.parapertussis DNA PCR (NotDetected) C. pneumoniae DNA (PCR) (NotDetected) Coronavirus OC43 (PCR) (NotDetected) Coronavirus HKU1 (PCR) (NotDetected) Coronavirus 229E (PCR) (NotDetected) Coronavirus NL63 (PCR) (NotDetected) Human Metapneumovir PCR (NotDetected) Influenza Type A (PCR) (Neg) Influenza Type B (PCR) (Neg) M. pneumoniae (PCR) (NotDetected) Parainfluenza 1 (PCR) (NotDetected) Parainfluenza 2 (PCR) (NotDetected) Parainfluenza 3 (PCR) (NotDetected) Parainfluenza 4 (PCR) (NotDetected) RSV (PCR) (NotDetected) Entero/Rhino (PCR) (NotDetected) SARS-CoV-2 RNA (RT-PCR) Diagnostic Findings XR chest 1V portable CLINICAL HISTORY: SEPSIS dyspnea COMPARISON STUDY: 06/08/2018 FINDINGS: Minimal parenchymal infiltrate medial aspect left base. Platelike atelectasis left base. Lungs otherwise appear clear. Several old right sided healed rib fractures. IMPRESSION: 1. Small parenchymal infiltrate medial aspect left base. 2. Platelike atelectasis left base. Code Status & VTE Plan Code Status DNR/DNI VTE Prophylaxis Plan VTE Prophylaxis will be ordered: Yes PG Care Time/CCT Total # of Minutes Spent Total Time Spent with Patient: Total time spent is greater than 50% in coordination of care (as documented) at patient's floor/unit and/or counseling patient: Coding Level of Care Code 61885 Initial Inpt Care Lvl 3 Diagnoses Sepsis A41.9 Sepsis acute organ dysfunction status: unspecified Sepsis type: sepsis due to unspecified organism Pneumonia J18.9 Laterality: unspecified laterality Lung location: unspecified part of lung Pneumonia type: due to unspecified organism Acute and chronic respiratory failure J96.20 Acute hypernatremia E87.0 Acute dehydration E86.0 Type 2 diabetes mellitus with hyperglycemia E11.65 BEBE (acute kidney injury) N17.9 Epilepsy G40.909 Epilepsy type: unspecified Intractability: not intractable Status epilepticus: without status epilepticus GERD (gastroesophageal reflux disease) K21.9 Esophagitis presence: esophagitis presence not specified History of CVA (cerebrovascular accident) Z86.73 COPD (chronic obstructive pulmonary disease) J44.9 COPD type: unspecified COPD HLD (hyperlipidemia) E78.5 Hyperlipidemia type: unspecified PVD (peripheral vascular disease) I73.9 CKD (chronic kidney disease) N18.9 Chronic kidney disease stage: unspecified stage Elevated troponin R79.89 History of venous thrombosis and embolism Z86.718 DVT prophylaxis Z29.9 (1) Sepsis Sepsis acute organ dysfunction status: unspecified Sepsis type: sepsis due to unspecified organism Qualified Code(s): A41.9 - Sepsis, unspecified organism (2) Epilepsy Epilepsy type: unspecified Intractability: not intractable Status epilepticu s: without status epilepticus Qualified Code(s): G40.909 - Epilepsy, unspecified, not intractable, without status epilepticus (3) GERD (gastroesophageal reflux disease) Esophagitis presence: esophagitis presence not specified Qualified Code(s): K21.9 - Gastro-esophageal reflux disease without esophagitis (4) COPD (chronic obstructive pulmonary disease) COPD type: unspecified COPD Qualified Code(s): J44.9 - Chronic obstructive pulmonary disease, unspecified (5) HLD (hyperlipidemia) Hyperlipidemia type: unspecified Qualified Code(s): E78.5 - Hyperlipidemia, unspecified (6) CKD (chronic kidney disease) Chronic kidney disease stage: unspecified stage Qualified Code(s): N18.9 - Chronic kidney disease, unspecified (7) Pneumonia Laterality: unspecified laterality Lung location: unspecified part of lung Pneumonia type: due to unspecified organism Qualified Code(s): J18.9 - Pneumonia, unspecified organism
[2020-02-08 17:08] LABS: Basophils # (auto) 0.02 K/uL (0-0.2); Basophils % (auto) 0.1 %; Eosinophils # (auto) 0.01 K/uL (0-0.5); Eosinophils % (auto) 0.1 %; Hematocrit (blood only) 53.6 % (42-52); Hemoglobin 16.5 g/dL (14.0-18.0); Immature Granulocytes # (auto) 0.06 K/uL (0.00-0.02); Immature Granulocytes % (auto) 0.3 %; Lymphocytes # (auto) 1.56 K/uL (1.2-3.4); Lymphocytes % (auto) 8.7 %; Mean Corpuscular Hemoglobin 33.3 pg (25-34); Mean Corpuscular Hgb Conc 30.8 g/dL (32-36); Mean Corpuscular Volume 108.1 fL (80-100); Mean Platelet Volume 13.8 fL (7.4-10.4); Monocytes # (auto) 0.81 K/uL (0.11-0.59); Monocytes % (auto) 4.5 %; Neutrophils # (auto) 15.38 K/uL (1.4-6.5); Neutrophils % (auto) 86.3 %; Platelet Count 184 K/uL (130-400); RDW Coefficient of Variation 15.3 % (11.5-14.5); RDW Standard Deviation 59.8 fL (36.4-46.3); Red Blood Count 4.96 M/uL (4.7-6.1); White Blood Count 17.84 K/uL (4.8-10.8)
[2020-02-08 17:34] LABS: Macrocytosis Present
[2020-02-08] MEDS ORDERED: PHARMACY GLYCEMIC MGMT CONSULT PRN (18:05)
[2020-02-08 18:11] LABS: Adenovirus PCR Not Detected (NotDetected); Coronavirus 229E PCR Not Detected (NotDetected)
[2020-02-08 18:12] LABS: Bordetella parapertussis PCR Not Detected (NotDetected); Bordetella pertussis PCR Not Detected (NotDetected); Chlamydia pneumoniae PCR Not Detected (NotDetected); Coronavirus HKU1 PCR Not Detected (NotDetected); Coronavirus NL63 PCR Not Detected (NotDetected); Coronavirus OC43PCR Not Detected (NotDetected); Human Metapneumovirus PCR Not Detected (NotDetected); Influenza A PCR Not Detected (NotDetected); Influenza B PCR Not Detected (NotDetected); Mycoplasma pneumoniae PCR Not Detected (NotDetected); Parainfluenza Virus 1 PCR Not Detected (NotDetected); Parainfluenza Virus 2 PCR Not Detected (NotDetected); Parainfluenza Virus 3 PCR Not Detected (NotDetected); Parainfluenza Virus 4 PCR Not Detected (NotDetected); Respiratory Syncytial VirusPCR Not Detected (NotDetected); Rhinovirus/Enterovirus PCR Not Detected (NotDetected)
[2020-02-08] MEDS ORDERED: CARBOHYDRATES FOR HYPOGLYCEMIA PO PRN (18:37)
[2020-02-08] MEDS ORDERED: FIBERSOURCE HN 1.2 CAL 1000 ML BAG PO SCH (18:37)
[2020-02-08] MEDS ORDERED: PIPERACILL/TAZOBAC CONSULT ACTIVE PRN (18:37)
[2020-02-08] MEDS ORDERED: GLUCOSE 40% GEL 15 GM TUBE PO PRN (18:37)
[2020-02-08] MEDS ORDERED: GLUCOSE 10 TABS/TUBE PO PRN (18:37)
[2020-02-08] MEDS ORDERED: SIMETHICONE 80 MG CHEW PO PRN (18:37)
[2020-02-08] MEDS ORDERED: DEXTROSE 50% 50 ML SYRINGE IV PRN (18:37)
[2020-02-08] MEDS ORDERED: MAGNESIUM HYDROXIDE SUSP 30 ML UDC GT PRN (18:37)
[2020-02-08] MEDS ORDERED: bisacodyL 10 MG SUPP PR PRN (18:37)
[2020-02-08] MEDS ORDERED: GLUCAGON FOR INJ 1 MG VIAL SQ PRN (18:37)
[2020-02-08] MEDS ORDERED: BARRIER TOP SCH (18:37)
[2020-02-08] MEDS ORDERED: PIPERACILLIN/TAZOBACTAM 4.5 GM in DEXTROSE 5% 100 ML IV ONE (19:00)
[2020-02-08] MEDS: ALBUT/IPRATROP 3MG/0.5MG NEB 3 ML VIAL INH SCH (19:45)
[2020-02-08] MEDS ORDERED: PENDING D5 1/2NS+20mEq KCL IVF SCH (19:45)
[2020-02-08] MEDS: BUDESONIDE 0.5 MG/2 ML VIAL (PULMICORT) INH SCH (19:45)
[2020-02-08] MEDS: INSULIN ASPART 100 UNITS/ML 3 ML PEN SC SCH ×2 (20:07→21:36)
[2020-02-08] MEDS: D5W AND 1/2NSS + 20MEQ KCL 20 MEQ/1,000 ML BAG IV SCH (20:08)
[2020-02-08] MEDS: SACCHAROMYCES BOULARDII 250 MG CAP PO SCH (20:10)
[2020-02-08] MEDS: TRAZODONE HCL 50 MG TAB GT SCH (20:10)
[2020-02-08] MEDS: guaiFENesin SUGAR FREE 200 MG/10 ML UDC PO SCH (20:11)
[2020-02-08] MEDS: levETIRAcetam ORAL SOLN 100MG/ML PO SCH (20:11)
[2020-02-08] MEDS: ATORVASTATIN 20 MG TAB GT SCH (20:11)
[2020-02-08] MEDS: CARBAMAZEPINE 100 MG CHEW TAB PO SCH (20:12)
[2020-02-08] MEDS: TUBE FEEDING WATER FLUSH GT SCH (20:12)
[2020-02-08] MEDS: AMMONIUM LACTATE 12% LOTION 225 GM BTL EXT SCH (20:12)
--- NOTE | 2020-02-08 20:40 | Pharmacy Report ---
Glycemic Control Consultation - Date of Service February 08, 2020 - Scope Scope: Glycemic Pharmacist consulted for glycemic control and to write orders per [facility] inpatient glycemic control protocol. - Objective Weight: 72 kg Accuchecks BSG (last 24hrs): 02/08/20 02/08/20 02/08/20 14:20 16:00 16:51 Glucose 487 H* POC Glucose 360 H* 384 H* 02/08/20 02/08/20 18:04 18:58 Glucose POC Glucose 310 H* 295 H Laboratory Data (last 24hrs): 02/08/20 14:20 Potassium 4.1 Carbon Dioxide 32 Anion Gap 3.0 Creatinine 1.80 H Est Cr Clr Drug Dosing Not Reportable Beta-Hydroxybutyric Acd 1.27 - Recent Pertinent Medications Outpatient Anti-diabetic Regimen: * Lantus ?? BID * Humalog up to 20 units daily per SS * A1c = 7.6 % 08/15/19 - Assessment & Plan Assessment & Plan: ASSESSMENT: * 64 y/o male admitted with fever and elevated BSGs (BSG on admission 487 mg/dL). PMH pertinent for aspiration pneumonia, sepsis, diabetes, COPD and CVA. Patient is currently being ruled out for COVID-19. Started on an insulin infusion in the ED for HHS. Sodium level of 158. Upon arrival to the ICU, BSG has already fallen to 295 mg/dL. Will adjust fluids to incorporate dextrose and potassium, as per [facility] order set. * As patient already initiated on an insulin drip and being ruled out for COVID- 19, will change to q2h BSG checks to reduce PPE usage. Insulin drip rate to be cut back ~50% since BSGs falling quickly. PLAN FOR INPATIENT GLYCEMIC CONTROL: * Continue IV insulin infusion per severe stress protocol * Goal Range 250 - 350 mg/dl for HHS * In the critical care setting, continuous IV insulin infusion has been shown to be the best method for achieving glycemic targets. * BSG checks q2h to reduce PPE use * Decrease drip rate to 0.75 unit/hr (~0.01 units/kg) and then titrate as per insulin drip calculator * Holding outpatient oral diabetes medications * Basal insulin * Lantus 10 units x 1 at midnight (COVID rule out admin times) to aid with transition to when applicable * Bolus insulin * NovoLog for CHO consumed as per insulin infusion calculator * Please note that the plan above was derived based on current level of insulin resistance and hospital stress. These recommendations are appropriate for inpatient admission only. Plan of care upon discharge will need to be reassessed to avoid potential outpatient hypo/hyperglycemia. Thank you.
--- NOTE | 2020-02-08 20:43 | Pharmacy Report ---
Pharmacy Abx Initial Consult - Date of Service February 08, 2020 - Pharmacy Dosing Scope Date of Consult: Consultation requested by: Dr. Neal Pharmacy is consulted to initiate Vancomycin + Zosyn IV dosing therapy, order appropriate labs and adjust drug dose/frequency. - Subjective The patient is a 64 year old M admitted on 02/08/20 16:57. - Objective Height: 6 ft 1 in Weight: 72 kg Vital Signs (Past 12hrs): Vital Signs Temp Pulse Pulse Pulse Resp BP BP 02/08/20 19:45 101 H 20 02/08/20 19:26 36.4 C L 104 H 24 101/71 02/08/20 17:10 109 H 32 H 02/08/20 17:00 105 H 24 98/68 L 02/08/20 16:50 106 H 23 02/08/20 16:45 105 H 24 112/71 02/08/20 16:40 105 H 25 H 02/08/20 16:31 110 H 30 H 101/74 02/08/20 16:30 106 H 23 02/08/20 16:20 106 H 27 H 02/08/20 16:16 107 H 25 H 108/79 02/08/20 16:10 107 H 25 H 02/08/20 16:00 107 H 26 H 117/72 02/08/20 15:50 105 H 26 H 02/08/20 15:45 105 H 26 H 110/71 02/08/20 15:40 104 H 26 H 02/08/20 15:30 106 H 24 134/79 02/08/20 15:25 111 H 21 96/79 L 02/08/20 15:20 110 H 26 H 02/08/20 15:10 108 H 25 H 02/08/20 15:00 110 H 26 H 02/08/20 14:50 108 H 21 02/08/20 14:40 112 H 28 H 02/08/20 14:30 115 H 33 H 02/08/20 14:27 38.1 C H 120 H 30 H 116/78 02/08/20 14:20 120 H 30 H 02/08/20 14:16 121 H 31 H 02/08/20 14:10 121 H 32 H 116/82 02/08/20 14:00 128 H 23 155/104 H Pulse Ox 02/08/20 19:45 93 04/23/20 19:26 95 02/08/20 17:10 93 02/08/20 17:00 94 02/08/20 16:50 94 02/08/20 16:45 94 02/08/20 16:40 94 02/08/20 16:31 93 02/08/20 16:30 92 02/08/20 16:20 94 02/08/20 16:16 95 02/08/20 16:10 94 02/08/20 16:00 93 02/08/20 15:50 94 02/08/20 15:45 94 02/08/20 15:40 93 02/08/20 15:30 95 02/08/20 15:25 93 02/08/20 15:20 93 02/08/20 15:10 94 02/08/20 15:00 94 02/08/20 14:50 94 02/08/20 14:40 95 02/08/20 14:30 92 02/08/20 14:27 88 L 02/08/20 14:20 88 L 02/08/20 14:16 87 L 02/08/20 14:10 87 L 02/08/20 14:00 Lab Results (24hrs): Laboratory Tests (24 Hours) 02/08/20 02/08/20 14:20 14:20 WBC 17.84 H Neut # (Auto) 15.38 H Creatinine 1.80 H Est Cr Clr Drug Dosing Not Reportable Micro Results: 02/08/20 15:25 Urine Culture - Pending Urine,Indwelling Cath 02/08/20 15:17 Aerobic Blood Culture - Pending Blood Anaerobic Blood Culture - Pending 02/08/20 14:20 Aerobic Blood Culture - Pending Blood Anaerobic Blood Culture - Pending - Risk Factors for Resistance * Resident in a senior care or extended-care facility * 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 Chest Xray suggestive of pneumonia. Pt is nonverbal and fairly agitated at baseline - today he became unusually lethargic. tmax in the ED 38.1 WBC 17.8 blood cx x2 pending, urine cx pending COVID-19 pending (previously negative on 01/20) Nasal swab pending Influenza negative Plan Vancomycin and Zosyn for treatment of possible sepsis 2/2 pneumonia Vancomycin IV * Estimated PK Parameters: Vd 0.7 L/kg, Mark 0.04 hr-1, t1/2 17 hr * Loading dose: 1500 mg (21 mg/kg) x1 dose in the ED * Maintenance dose: 1000 mg IV (14 mg/kg) every 18 hours * Goal trough level : 15 to 20 mcg/mL Piperacillin/tazobactam * 4.5 g bolus administered over 30 minutes, then 4.5 g IV extended infusion every 8 hours for CrCl greater than 20 mL/min. * Aggressive dosing selected due to critically ill status. Levaquin adjusted to 750mg IV Q48 per renal adjustment protocol. Pharmacy will continue to follow and will adjust dose/frequency as necessary. Thank you.
[2020-02-08] MEDS ORDERED: SACCHAROMYCES BOULARDII 250 MG CAP PO SCH (21:00)
[2020-02-08] MEDS ORDERED: CARBAMAZEPINE 100 MG CHEW TAB PO SCH (21:00)
[2020-02-08] MEDS ORDERED: ATORVASTATIN 20 MG TAB GT SCH (21:00)
[2020-02-08 21:09] LABS: BUN Creatinine Ratio 33.3 (10-20); Calcium 8.6 mg/dl (8.5-10.1); Creatinine Clr Calc Pharmacy 59.5 ml/min; Est GFR (African American) 67.2; Est GFR (Non-African American) 57.9; Magnesium 2.6 mg/dl (1.8-2.4); Phosphorus 3.4 mg/dl (2.5-4.9); Potassium 3.9 mmol/L (3.5-5.1)
[2020-02-09 00:48] LABS: D Dimer 860 ug/L FEU (0-500)
[2020-02-09] MEDS: PIPERACILLIN/TAZOBACTAM 4.5 GM in DEXTROSE 5% 100 ML IV SCH ×2 (01:00→07:42)
[2020-02-09] MEDS: TUBE FEEDING WATER FLUSH GT SCH ×3 (01:00→07:44)
[2020-02-09 01:04] LABS: BUN Creatinine Ratio 32.7 (10-20); Calcium 8.5 mg/dl (8.5-10.1); Creatinine Clr Calc Pharmacy 65.5 ml/min; Est GFR (African American) 75.4; Est GFR (Non-African American) 65.1; Ferritin 207.2 ng/ml (8-388); Magnesium 2.6 mg/dl (1.8-2.4); Phosphorus 3.7 mg/dl (2.5-4.9); Potassium 3.9 mmol/L (3.5-5.1); Troponin I 0.122 ng/ml (0-0.045)
[2020-02-09] MEDS ORDERED: SODIUM CHLORIDE 0.9% 1000ML 500 ML IV ONE (01:23)
[2020-02-09] MEDS: ALBUT/IPRATROP 3MG/0.5MG NEB 3 ML VIAL INH SCH ×4 (01:30→19:00)
[2020-02-09 06:02] LABS: BUN Creatinine Ratio 31.2 (10-20); Calcium 7.9 mg/dl (8.5-10.1); Creatinine Clr Calc Pharmacy 70.6 ml/min; Est GFR (African American) 78.6; Est GFR (Non-African American) 67.8; Magnesium 2.5 mg/dl (1.8-2.4); Phosphorus 3.4 mg/dl (2.5-4.9); Potassium 3.9 mmol/L (3.5-5.1)
[2020-02-09 06:11] LABS: Estimated Average Glucose 203 mg/dl; Hemoglobin A1C 8.7 % (4.5-5.6)
[2020-02-09 06:13] LABS: Beta-Hydroxybutyrate 1.03 mg/dl (0.2-2.81)
[2020-02-09] MEDS: BUDESONIDE 0.5 MG/2 ML VIAL (PULMICORT) INH SCH ×3 (07:25→19:00)
[2020-02-09] MEDS: D5W AND 1/2NSS + 20MEQ KCL 20 MEQ/1,000 ML BAG IV SCH (07:40)
[2020-02-09] MEDS: ASPIRIN 81 MG CHEW GT SCH (07:44)
[2020-02-09] MEDS: CITALOPRAM 40 MG TAB GT SCH (07:45)
[2020-02-09] MEDS: DOCUSATE SODIUM SYRUP 100 MG/10 ML UDC PO SCH (07:46)
[2020-02-09] MEDS: TRAZODONE HCL 50 MG TAB GT SCH ×2 (07:46→20:30)
[2020-02-09] MEDS: SACCHAROMYCES BOULARDII 250 MG CAP PO SCH ×3 (07:46→20:21)
[2020-02-09] MEDS: LANSOPRAZOLE 30 MG SOLTAB GT SCH (07:47)
[2020-02-09] MEDS: levETIRAcetam ORAL SOLN 100MG/ML PO SCH ×2 (07:47→15:40)
[2020-02-09] MEDS: guaiFENesin SUGAR FREE 200 MG/10 ML UDC PO SCH ×4 (07:47→20:25)
[2020-02-09] MEDS: AMMONIUM LACTATE 12% LOTION 225 GM BTL EXT SCH ×2 (07:48→20:24)
[2020-02-09] MEDS: CARBAMAZEPINE 100 MG CHEW TAB PO SCH ×3 (07:48→20:23)
[2020-02-09] MEDS: INSULIN ASPART 100 UNITS/ML 3 ML PEN SC SCH ×4 (08:04→21:40)
--- NOTE | 2020-02-09 08:12 | XRay Report ---
XR chest 1V portable CLINICAL HISTORY: f/u PNA COMPARISON STUDY: Chest radiograph February 08, 2020. FINDINGS: Incidental note is made of multiple healed right rib fractures. Mild left basilar opacity i s unchanged. There is no lobar consolidation. Cardiac size is normal. There is no evidence for pulmon sasha edema. No pneumothorax or pleural effusion is noted. Mild elevation of the left hemidiaphragm is unchanged. IMPRESSION: Mild left basilar opacity. Atelectasis is favored. An infectious process could appear si milar although is considered less likely. ACT 112: Negative or not required by law. Electronically signed by: Ulysses Barron M.D. 02/09/2020 8:10 AM
[2020-02-09] MEDS: SODIUM CHLORIDE 0.45 % 1,000 ML IV SCH ×3 (08:15→22:29)
[2020-02-09 08:53] LABS: BUN Creatinine Ratio 30.2 (10-20); Calcium 8.3 mg/dl (8.5-10.1); Creatinine Clr Calc Pharmacy 69.9 ml/min; Est GFR (African American) 77.8; Est GFR (Non-African American) 67.1; Magnesium 2.6 mg/dl (1.8-2.4); Phosphorus 2.8 mg/dl (2.5-4.9); Potassium 3.8 mmol/L (3.5-5.1)
[2020-02-09] MEDS ORDERED: ASPIRIN 81 MG CHEW GT SCH (09:00)
[2020-02-09 09:04] LABS: Beta-Hydroxybutyrate 0.8 mg/dl (0.2-2.81)
[2020-02-09] MEDS ORDERED: INSULIN GLARGINE SOLOSTAR 100 UNITS/ML 3 ML PEN SC ONE ×2 (09:45)
--- NOTE | 2020-02-09 10:02 | Pharmacy Report ---
Pharmacy Abx Dose Short Note - Date of Service February 09, 2020 - Assessment & Plan Assessment 64 year old M ordered empiric vancomycin, zosyn, and levofloxacin for treatment sepsis, pneumonia * h/o MRSA (peg tube site), positive MRSA nasal swab * BCx2 and urine culture pending * rapid influenza negative, Biofire panel negative, COVID-19 testing pending * Scr trending down therefore vancomycin dosing frequency will require adjustment Plan Vancomycin * Change to 1000 mg IV (~14 mg/kg) every 12 hours * Dose change based on updated estimated half life of 11.5 hours * Goal trough level: 15 mcg/mL * Trough or random level ordered for: 02/09 @ 2330 Zosyn * decrease from 4.5g to 3.375g IV q8h (ext. infusion) * no h/o MDR gram negative infection and pt at risk for BEBE due to vanc/zosyn combo with CKD Levofloxacin (not a pharm consult) * changed to 750 mg IV q24h for eCrCl > 50 ml/min Pharmacy will continue to follow and will adjust dose/frequency as necessary. Thank you.
[2020-02-09] MEDS: VANCOMYCIN HCL 1,000 MG in SODIUM CHLORIDE 0.9% 250 ML IV SCH (10:28)
[2020-02-09] MEDS ORDERED: VANCOMYCIN HCL 1,000 MG in SODIUM CHLORIDE 0.9% 250 ML IV SCH ×2 (11:00→13:00)
[2020-02-09 13:00] LABS: BUN Creatinine Ratio 28.4 (10-20); Calcium 8.2 mg/dl (8.5-10.1); Creatinine Clr Calc Pharmacy 75.8 ml/min; Est GFR (African American) 85.8; Magnesium 2.7 mg/dl (1.8-2.4); Phosphorus 3.3 mg/dl (2.5-4.9); Potassium 3.9 mmol/L (3.5-5.1)
[2020-02-09 13:09] LABS: Beta-Hydroxybutyrate 0.72 mg/dl (0.2-2.81)
[2020-02-09] MEDS ORDERED: PROSOURCE NO CARB 30 ML/PKT PEG SCH (14:00)
[2020-02-09] MEDS: PROSOURCE NO CARB 30 ML/PKT PEG SCH ×2 (14:10→20:21)
[2020-02-09] MEDS: PEPTAMEN 1.5 CAL 1,000 ML BAG PEG SCH (14:10)
--- NOTE | 2020-02-09 15:15 | Electrocardiogram Report ---
Test Reason : Blood Pressure : / mmHG Vent. Rate : 119 BPM Atrial Rate : 119 BPM P-R Int : 138 ms QRS Dur : 064 ms QT Int : 352 ms P-R-T Axes : 070 059 054 degrees QTc Int : 495 ms Poor data quality, interpretation may be adversely affected Sinus tachycardia Possible Left atrial enlargement Borderline ECG When compared with ECG of 08-JUN-2019 12:17, No significant change was found Confirmed by Lex Thorpe ([id number]) on 02/09/2020 3:15:08 PM Referred By: [facility] Confirmed By:Yoni Thorpe
--- NOTE | 2020-02-09 15:32 | Pharmacy Report ---
Pharmacy Glycemic Short Note 2 - Date of Service February 09, 2020 - Glycemic Short BSG Results (Last 24 hours): 02/08/20 02/08/20 02/08/20 16:00 16:51 18:04 Glucose POC Glucose 360 H* 384 H* 310 H* 02/08/20 02/08/20 02/08/20 18:58 20:28 21:31 Glucose 272 H POC Glucose 295 H 288 H 02/08/20 02/09/20 02/09/20 22:50 00:25 01:49 Glucose 307 H* POC Glucose 266 H 304 H* 02/09/20 02/09/20 02/09/20 03:19 03:21 04:57 Glucose POC Glucose 345 H* 254 H 353 H* 02/09/20 02/09/20 02/09/20 04:59 05:00 07:28 Glucose 398 H* POC Glucose 362 H* 335 H* 02/09/20 02/09/20 02/09/20 07:29 07:29 08:19 Glucose 425 H* POC Glucose 384 H* 418 H* 02/09/20 02/09/20 02/09/20 08:28 08:28 09:35 Glucose POC Glucose 419 H* 394 H* 398 H* 02/09/20 02/09/20 02/09/20 09:37 10:31 10:32 Glucose POC Glucose 354 H* 333 H* 342 H* 02/09/20 02/09/20 02/09/20 11:35 12:22 12:27 Glucose 325 H* POC Glucose 299 H 287 H 02/09/20 02/09/20 13:32 14:26 Glucose POC Glucose 219 H 205 H OUTPATIENT ANTIDIABETIC REGIMEN: * Per med rec: * Lantus 20-25 units BID * Humalog 20 units daily prn * A1c = 8.7% 02/09/20 ASSESSMENT: 02/08: * Patient admitted with HHS on IV insulin infusion * Hyperglycemia had initially improved on IV insulin infusion. BSGs decreased into the mid to high 200s last evening. BSGs then started to trend back upward to the 300-400 mg/dL range. I suspect this was due to resumption of continuous fibersource tube feeds. Tube feeds were held this morning. Improvement in glycemic control noted after this change. * Conservatively dosed basal insulin has been overlapped with IV infusion. Lantus 15 units SQ was ordered for this morning (tube feeds on hold at this t silas - pt NPO). This will be increased for PM dose. Patient required 25 units BID on previous admission. * Tube feeds resumed as of 1400 today. Peptamen started at low infusion rate of 10 ml/hr (delivers 8 grams CHO over 4 hours). * Estimated serum osmolality to be ~343 mOsm/kg based on 1215 labs. Will continue IV insulin infusion until normal serum osmolality achieved. 02/07: 64 y/o male admitted with fever and elevated BSGs (BSG on admission 487 mg/dL). PMH pertinent for aspiration pneumonia, sepsis, diabetes, COPD and CVA. Patient is currently being ruled out for COVID-19. Started on an insulin infusion in the ED for HHS. Sodium level of 158. Upon arrival to the ICU, BSG has already fallen to 295 mg/dL. Will adjust fluids to incorporate dextrose and potassium, as per [facility] order set. * As patient already initiated on an insulin drip and being ruled out for COVID- 19, will change to q2h BSG checks to reduce PPE usage. Insulin drip rate to be cut back ~50% since BSGs falling quickly. PLAN FOR INPATIENT GLYCEMIC CONTROL: * Continue IV insulin infusion until resolution of HHS * Basal insulin * Lantus 15 units this morning and 25 units SQ tonight * Further Lantus orders TBD * Bolus insulin * per IV infusion calculator
[2020-02-09] MEDS: RIVAROXABAN 20 MG TAB PO SCH (15:38)
[2020-02-09] MEDS: PIPERACILLIN/TAZOBACTAM 3.375 GM in DEXTROSE 5% 100 ML IV SCH (15:39)
[2020-02-09] MEDS: LEVOFLOXACIN/D5W 750 MG/150 ML BAG IV SCH (15:40)
[2020-02-09 17:19] LABS: BUN Creatinine Ratio 30.2 (10-20); Calcium 8.1 mg/dl (8.5-10.1); Creatinine Clr Calc Pharmacy 86.3 ml/min; Est GFR (African American) 100.3; Est GFR (Non-African American) 86.5; Magnesium 2.5 mg/dl (1.8-2.4); Phosphorus 3.3 mg/dl (2.5-4.9); Potassium 3.8 mmol/L (3.5-5.1)
--- NOTE | 2020-02-09 18:42 | Hospitalist Progress Note ---
Date of Service February 09, 2020 Assessment & Plan (1) Sepsis: With tachycardia, tachypnea, hypoxia, elevated lactate, leukocytosis, hypotension, fever, and left lower lobe infiltrate on chest x-ray as well as abnormal UA as potential sources of infection Has a history of aspiration pneumonia and also resides in a longterm facility Had human metapneumovirus 2 and half weeks ago Repeat viral respiratory panel here negative COVID-19 test is pending Improving tachycardia, BP improved, lactate decreased slightly, no further fevers, remains hypoxic Growing Strep species in urine, BCxs NGTD CXR again confirms Left sided PNA -continue airborne precautions -continue telemetry unit -continue copious IV fluids, broad-spectrum IV antibiotics -Follow CBC, CMP -Follow blood cultures, urine culture, it is unlikely he will be able to give a sputum sample (2) Pneumonia: With left lower lobe infiltrate on chest x-ray reconfirmed after hydration on CXR 02/08 He was profoundly dehydrated on admission PCT mildly elevated at 0.68 -He has from a healthcare facility and has a history of MRSA as well as aspiration pneumonia -Received cefepime, vancomycin, and levofloxacin in the ER x1 dose each -MRSA nasal swab positive-continue vancomycin -continue IV Zosyn to cover for gram-negative pneumonia and anaerobes in the case of aspiration, continue IV levofloxacin for atypical coverage - CRP, ferritin and D-dimer all elevated - LDH normal -Checking [id number] be the send out to [facility] as per discussion with Dr. Saenz-still pending -continue Supplemental O2 as needed to keep pulse ox greater than 92% -Avoid steroids at this time -Continue duo nebs -Continue budesonide nebulized (3) Acute and chronic respiratory failure: Chronically on 2 L nasal cannula at nighttime With a history of COPD With rhonchi and wheezing on examination now improving -Continue nebulizers and inhaled steroids as above -Supplemental O2 to keep pulse ox greater than 92% -Treating pneumonia as above (4) Acute hypernatremia: Corrected sodium for hyperglycemia is 167 on admission Free water deficit was 6.7 L on admission Was given 2 L of normal saline in the ER -Was then placed on D5W1/2NS with KCl 20meq by pharmacy overnight and glucose continues to be quite elevated in the 400s -slowly improving down to 157 corrected for hyperglycemia on afternoon labs -change to half-normal saline at 150 mL's per hour -Follow BMP -Also receiving free water flushes-increased from home dose to 125 mL's free water every 4 hours through PEG tube (5) Acute dehydration: Secondary to febrile illness, PEG tube dependence, and severe hyperglycemia -IV fluids and insulin drip Slowly improving (6) Type 2 diabetes mellitus with hyperglycemia: With HHS, Acute metabolic encephalopathy Glucose in the mid 500s on admission with profound dehydration as above Improving Continue Insulin drip Glycemic consult to help manage Convert to basal bolus insulin when improved -continue IV fluids and potassium replacement as needed -Following serial chemistry labs Check hemoglobin A1c Holding home metformin (7) BEBE (acute kidney injury): With creatinine of 1.8 on admission and now normal Giving IV fluids -Follow BMP Secondary to hyperglycemia and dehydration (8) Epilepsy: No obvious seizures -Continue home Tegretol and Keppra Monitor (9) GERD (gastroesophageal reflux disease): Continue PPI through PEG tube (10) History of CVA (cerebrovascular accident): With a history of right-sided hemiparesis and significant aphasia, with PEG tube and total care -Continue on Xarelto, aspirin, statin -Frequent turning and total care (11) COPD (chronic obstructive pulmonary disease): With chronic O2 With rhonchi and wheezing here -Avoiding steroids for now in case of COVID-19 infection -Continue DuoNebs every 6 hours and budesonide nebs twice daily (12) HLD (hyperlipidemia): Continue statin (13) PVD (peripheral vascular disease): Continue aspirin, statin (14) CKD (chronic kidney disease): Baseline creatinine 0.6 With acute kidney injury as above now resolved -Avoid nephrotoxins -renally dose meds when appropriate -follow BMP (15) Elevated troponin: Troponin elevated at 0.18 on admission, likely secondary to demand ischemia from sepsis and profound dehydration -Trend serial troponin--> went back down to 0.12 ECG without ischemic changes Impossible to tell if he is symptomatic He would be a very poor candidate for intervention and this would likely be against his sister's wishes to avoid aggressive intervention -no echocardiogram necessary (16) 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 Grunting and tries to hit the RN with his left arm, more awake. Discussed care with Nutrition and Pharmacy Review of Systems Review of Systems: All systems reviewed & are unremarkable except as noted in HPI & below Physical Exam Constitutional: + ill appearing, + thin and + cachectic; no acute distress Eyes: + anicteric sclerae ENMT: Nose: no nasal discharge Neck: trachea midline, no thyromegaly Respiratory: no labored breathing Auscultation: + rhonchi (a few scattered, improved today); no wheezes Cardiovascular: Rate/Rhythm: regular rate and regular rhythm Heart Sounds: no murmur Extremities: no edema Chest (Breasts): Chest: normal inspection of chest Gastrointestinal (Abdomen): Inspection/Auscultation: normal bowel sounds; + abdomen abnormal to inspection (With PEG tube in place) and abdomen not distended Percussion/Palpation: abdomen soft; abdomen nontender Musculoskeletal: Extremities: + extremities abnormal to inspection (With sarcopenia), no cyanosis and no clubbing Skin: + rash (With dry skin with pinkish areas of rash on lower abdomen) Neurologic: + focal motor deficit (Right-sided hemiparesis) Speech / Cognition: + expressive aphasia Genitourinary: no penis abnormality (Grace catheter in place) Lymphatic: no lymphedema Results & Data Results & Data ([facility]) Vital Signs (Past 12 Hours) Vital Signs Temp Pulse Pulse Resp BP Pulse Ox 02/09/20 16:00 37.2 C 89 20 132/89 95 02/09/20 14:18 87 18 98 02/09/20 11:38 36.7 C 85 18 108/70 97 02/09/20 07:36 36.4 C L 91 H 20 127/83 94 02/09/20 07:25 94 H 19 92 Laboratory Results labs reviewed, sodium trending downward, glucose improving Diagnostic Findings Repeat CXR personally reviewed by me and agree with following report: XR chest 1V portable CLINICAL HISTORY: f/u PNA COMPARISON STUDY: Chest radiograph February 08, 2020. FINDINGS: Incidental note is made of multiple healed right rib fractures. Mild left basilar opacity is unchanged. There is no lobar consolidation. Cardiac size is normal. There is no evidence for pulmonary edema. No pneumothorax or pleural effusion is noted. Mild elevation of the left hemidiaphragm is unchanged. IMPRESSION: Mild left basilar opacity. Atelectasis is favored. An infectious process could appear similar although is considered less likely. PG Care Time/CCT Total # of Minutes Spent Total Time Spent with Patient: Total time spent is greater than 50% in coordination of care (as documented) at patient's floor/unit and/or counseling patient: Coding Level of Care Code 39010 Subseq Hosp Care Lvl 3 Diagnoses Sepsis A41.9 Sepsis acute organ dysfunction status: unspecified Sepsis type: sepsis due to unspecified organism Pneumonia J18.9 Laterality: unspecified laterality Lung location: unspecified part of lung Pneumonia type: due to unspecified organism Acute and chronic respiratory failure J96.20 Acute hypernatremia E87.0 Acute dehydration E86.0 Type 2 diabetes mellitus with hyperglycemia E11.65 BEBE (acute kidney injury) N17.9 Epilepsy G40.909 Epilepsy type: unspecified Intractability: not intractable Status epilepticus: without status epilepticus GERD (gastroesophageal reflux disease) K21.9 Esophagitis presence: esophagitis presence not specified History of CVA (cerebrovascular accident) Z86.73 COPD (chronic obstructive pulmonary disease) J44.9 COPD type: unspecified COPD HLD (hyperlipidemia) E78.5 Hyperlipidemia type: unspecified PVD (peripheral vascular disease) I73.9 CKD (chronic kidney disease) N18.9 Chronic kidney disease stage: unspecified stage Elevated troponin R79.89 History of venous thrombosis and embolism Z86.718 DVT prophylaxis Z29.9 (1) Epilepsy Epilepsy type: unspecified Intractability: not intractable Status epilepticus: without status epilepticus Qualified Code(s): G40.909 - Epilepsy, unspecified, not intractable, without status epilepticus (2) HLD (hyperlipidemia) Hyperlipidemia type: unspecified Qualified Code(s): E78.5 - Hyperlipidemia, unspecified (3) CKD (chronic kidney disease) Chronic kidney disease stage: unspecified stage Qualified Code(s): N18.9 - Chronic kidney disease, unspecified (4) Sepsis Sepsis acute organ dysfunction status: unspecified Sepsis type: sepsis due to unspecified organism Qualified Code(s): A41.9 - Sepsis, unspecified organism (5) COPD (chronic obstructive pulmonary disease) COPD type: unspecified COPD Qualified Code(s): J44.9 - Chronic obstructive pulmonary disease, unspecified (6) GERD (gastroesophageal reflux disease) Esophagitis presence: esophagitis presence not specified Qualified Code(s): K21.9 - Gastro-esophageal reflux disease without esophagitis (7) Pneumonia Laterality: unspecified laterality Lung location: unspecified part of lung Pneumonia type: due to unspecified organism Qualified Code(s): J18.9 - Pneumonia, unspecified organism
[2020-02-09] MEDS: ATORVASTATIN 20 MG TAB GT SCH (20:22)
[2020-02-10] MEDS: VANCOMYCIN HCL 1,000 MG in SODIUM CHLORIDE 0.9% 250 ML IV SCH (00:04)
[2020-02-10] MEDS: PIPERACILLIN/TAZOBACTAM 3.375 GM in DEXTROSE 5% 100 ML IV SCH ×3 (00:26→16:27)
[2020-02-10] MEDS: ALBUT/IPRATROP 3MG/0.5MG NEB 3 ML VIAL INH SCH ×4 (01:05→19:18)
[2020-02-10] MEDS: SODIUM CHLORIDE 0.45 % 1,000 ML IV SCH ×4 (04:11→23:59)
[2020-02-10] MEDS: BUDESONIDE 0.5 MG/2 ML VIAL (PULMICORT) INH SCH ×3 (07:09→19:18)
[2020-02-10] MEDS: CITALOPRAM 40 MG TAB GT SCH (08:33)
[2020-02-10] MEDS: SACCHAROMYCES BOULARDII 250 MG CAP PO SCH ×3 (08:34→21:37)
[2020-02-10] MEDS: PROSOURCE NO CARB 30 ML/PKT PEG SCH ×3 (08:35→21:36)
[2020-02-10] MEDS: levETIRAcetam ORAL SOLN 100MG/ML PO SCH ×2 (08:35→16:30)
[2020-02-10] MEDS: LANSOPRAZOLE 30 MG SOLTAB GT SCH (08:35)
[2020-02-10] MEDS: CARBAMAZEPINE 100 MG CHEW TAB PO SCH ×3 (08:36→21:37)
[2020-02-10] MEDS: guaiFENesin SUGAR FREE 200 MG/10 ML UDC PO SCH ×4 (08:36→21:38)
[2020-02-10] MEDS: AMMONIUM LACTATE 12% LOTION 225 GM BTL EXT SCH ×2 (08:37→21:40)
[2020-02-10] MEDS: ASPIRIN 81 MG CHEW GT SCH (08:39)
[2020-02-10] MEDS: TRAZODONE HCL 50 MG TAB GT SCH ×2 (08:39→21:49)
[2020-02-10] MEDS ORDERED: INSULIN GLARGINE SOLOSTAR 100 UNITS/ML 3 ML PEN SC ONE (09:00)
[2020-02-10] MEDS: INSULIN ASPART 100 UNITS/ML 3 ML PEN SC SCH ×3 (09:10→21:58)
[2020-02-10 09:40] LABS: BUN Creatinine Ratio 22.4 (10-20); Calcium 8.3 mg/dl (8.5-10.1); Est GFR (African American) 109.8; Est GFR (Non-African American) 94.8; Potassium 3.3 mmol/L (3.5-5.1)
[2020-02-10 09:50] LABS: Hematocrit (blood only) 39.2 % (42-52); Hemoglobin 11.8 g/dL (14.0-18.0); Mean Corpuscular Hemoglobin 32.1 pg (25-34); Mean Corpuscular Hgb Conc 30.1 g/dL (32-36); Mean Corpuscular Volume 106.5 fL (80-100); Mean Platelet Volume 13.4 fL (7.4-10.4); Platelet Count 124 K/uL (130-400); RDW Coefficient of Variation 14.4 % (11.5-14.5); Red Blood Count 3.68 M/uL (4.7-6.1); White Blood Count 12.06 K/uL (4.8-10.8)
[2020-02-10 09:53] LABS: Basophils # (auto) 0.01 K/uL (0-0.2); Basophils % (auto) 0.1 %; Eosinophils # (auto) 0.27 K/uL (0-0.5); Eosinophils % (auto) 2.2 %; Immature Granulocytes # (auto) 0.05 K/uL (0.00-0.02); Immature Granulocytes % (auto) 0.4 %; Lymphocytes % (auto) 8.3 %; Macrocytosis Present; Monocytes # (auto) 0.56 K/uL (0.11-0.59); Monocytes % (auto) 4.6 %; Neutrophils # (auto) 10.17 K/uL (1.4-6.5); Neutrophils % (auto) 84.4 %; Ovalocytes 1+; Platelet Estimate Decreased (Normal)
[2020-02-10] MEDS ORDERED: VANCOMYCIN HCL 1,000 MG in SODIUM CHLORIDE 0.9% 250 ML IV SCH (10:00)
[2020-02-10] MEDS ORDERED: [UNRECOGNIZED DRUG - REMARK] ONE (10:30)
[2020-02-10] MEDS ORDERED: INSULIN ASPART 100 UNITS/ML 3 ML PEN SC ONE (10:45)
[2020-02-10] MEDS ORDERED: POTASSIUM CHLORIDE 20 MEQ/15 ML UDC PEG STA (10:48)
[2020-02-10] MEDS: PEPTAMEN 1.5 CAL 1,000 ML BAG PEG SCH (11:06)
[2020-02-10] MEDS: POTASSIUM CHLORIDE / WTR 10 MEQ/100 ML PLCT IV SCH ×4 (11:12→16:27)
[2020-02-10] MEDS: VANCOMYCIN HCL 1,250 MG in SODIUM CHLORIDE 0.9% 250 ML IV SCH (11:29)
--- NOTE | 2020-02-10 11:35 | Pharmacy Report ---
Pharmacy Glycemic Short Note 2 - Date of Service February 10, 2020 - Glycemic Short BSG Results (Last 24 hours): 02/09/20 02/09/20 02/09/20 11:35 12:22 12:27 Glucose 325 H* POC Glucose 299 H 287 H 02/09/20 02/09/20 02/09/20 13:32 14:26 15:34 Glucose POC Glucose 219 H 205 H 177 H 02/09/20 02/09/20 02/09/20 16:29 16:43 17:34 Glucose 204 H POC Glucose 198 H 173 H 02/09/20 02/09/20 02/09/20 18:25 20:06 21:41 Glucose POC Glucose 197 H 159 H 162 H 02/10/20 02/10/20 02/10/20 00:10 02:06 04:05 Glucose POC Glucose 214 H 157 H 165 H 02/10/20 02/10/20 02/10/20 06:06 08:27 08:56 Glucose 184 H POC Glucose 144 H 171 H 02/10/20 02/10/20 09:46 10:39 Glucose POC Glucose 182 H 253 H OUTPATIENT ANTIDIABETIC REGIMEN: * Per med rec: * Lantus 20-25 units BID * Humalog 20 units daily prn * A1c = 8.7% 02/09/20 ASSESSMENT: 02/09: * BSGs stable over last 12 hours - one above 200 at midnight. Insulin gtt rate stable this morning * Na continuing to improve more this AM / serum osmolality improving as well closer to range * Ordered Lantus 15 units this am - same basal dose as yesterday AM ; plan to d/c insulin drip * Will order Q4 hr checks - add Lantus scale for tonight 02/08: * Patient admitted with HHS on IV insulin infusion * Hyperglycemia had initially improved on IV insulin infusion. BSGs decreased into the mid to high 200s last evening. BSGs then started to trend back upward to the 300-400 mg/dL range. I suspect this was due to resumption of continuous fibersource tube feeds. Tube feeds were held this morning. Improvement in glycemic control noted after this change. * Conservatively dosed basal insulin has been overlapped with IV infusion. Lantus 15 units SQ was ordered for this morning (tube feeds on hold at this time - pt NPO). This will be increased for PM dose. Patient required 25 units BID on previous admission. * Tube feeds resumed as of 1400 today. Peptamen started at low infusion rate of 10 ml/hr (delivers 8 grams CHO over 4 hours). * Estimated serum osmolality to be ~343 mOsm/kg based on 1215 labs. Will continue IV insulin infusion until normal serum osmolality achieved. 02/07: 64 y/o male admitted with fever and elevated BSGs (BSG on admission 487 mg/dL). PMH pertinent for aspiration pneumonia, sepsis, diabetes, COPD and CVA. Patient is currently being ruled out for COVID-19. Started on an insulin infusion in the ED for HHS. Sodium level of 158. Upon arrival to the ICU, BSG has already fallen to 295 mg/dL. Will adjust fluids to incorporate dextrose and potassium, as per HHS order set. * As patient already initiated on an insulin drip and being ruled out for COVID- 19, will change to q2h BSG checks to reduce PPE usage. Insulin drip rate to be cut back ~50% since BSGs falling quickly. PLAN FOR INPATIENT GLYCEMIC CONTROL: * Discontinue insulin drip this morning * Basal insulin * Lantus 15 units this morning and 10-20 units HS * Further Lantus orders TBD * Bolus insulin - novolog Q4 hr checks * Goal 110-140 * CF 15 CR 6
--- NOTE | 2020-02-10 15:11 | Hospitalist Progress Note ---
Date of Service February 10, 2020 Assessment & Plan (1) Sepsis: With tachycardia, tachypnea, hypoxia, elevated lactate, leukocytosis, hypotension, fever, and left lower lobe infiltrate on chest x-ray as well as abnormal UA as sources of infection Has a history of aspiration pneumonia and also [facility] Had human metapneumovirus 2 and half weeks ago Repeat viral respiratory panel here negative COVID-19 test is still pending Improving tachycardia, BP improved, lactate decreased slightly, no further fevers, hypoxia improving, leukocytosis resolved Growing Strep species and Alpha strep not enterococcus in urine, BCxs NGTD Repeat CXR confirms Left sided PNA -continue airborne precautions -can transfer off tele -continue IV fluids, broad-spectrum IV antibiotics but dc Levaquin -Follow CBC, CMP -Follow blood cultures, urine culture final result (2) Pneumonia: With left lower lobe infiltrate on chest x-ray reconfirmed after hydration on CXR 02/08 He was profoundly dehydrated on admission PCT mildly elevated at 0.68 and now decreased to 0.35 -He has from a healthcare facility and has a history of MRSA as well as aspiration pneumonia -Received cefepime, vancomycin, and levofloxacin in the ER x1 dose each -MRSA nasal swab positive-continue vancomycin -continue IV Zosyn to cover for gram-negative pneumonia and anaerobes in the case of aspiration, as well as for Strep species in urine -dc levofloxacin - CRP, ferritin and D-dimer all elevated - LDH normal -Checking [id number] pending -continue Supplemental O2 as needed to keep pulse ox greater than 92%-is now weaned off -Avoid steroids at this time -Continue duo nebs -Continue budesonide nebulized (3) Acute and chronic respiratory failure: Chronically on 2 L nasal cannula at nighttime With a history of COPD With rhonchi and wheezing on examination now improving -Continue nebulizers and inhaled steroids as above -Supplemental O2 to keep pulse ox greater than 92% -Treating pneumonia as above (4) Acute hypernatremia: Corrected sodium for hyperglycemia is 167 on admission Free water deficit was 6.7 L on admission Was given 2 L of normal saline in the ER -Na+ now down to 150, much improved -continue half-normal saline at 150 mL's per hour -Follow BMP -Also receiving free water flushes- 100 mL's free water every 4 hours through PEG tube (5) Acute dehydration: Secondary to febrile illness, PEG tube dependence, and severe hyperglycemia -continue IV fluids and insulin Slowly improving (6) Type 2 diabetes mellitus with hyperglycemia: With HHS, Acute metabolic encephalopathy Glucose in the mid 500s on admission with profound dehydration as above now much improved Weaned off Insulin drip, on basal and bolus insulin as per Pharmacy management -continue IV fluids and potassium replacement as needed -Following serial chemistry labs Hemoglobin A1c 8.7% here Holding home metformin (7) BEBE (acute kidney injury): With creatinine of 1.8 on admission and now normal Giving IV fluids -Follow BMP Secondary to hyperglycemia and dehydration (8) Epilepsy: No obvious seizures -Continue home Tegretol and Keppra Monitor (9) GERD (gastroesophageal reflux disease): Continue PPI through PEG tube (10) History of CVA (cerebrovascular accident): With a history of right-sided hemiparesis and significant aphasia, with PEG tube and total care -Continue on Xarelto, aspirin, statin -Frequent turning and total care (11) COPD (chronic obstructive pulmonary disease): With chronic O2 With rhonchi and wheezing here on admission now much improved and weaned off O2 -Avoiding steroids for now in case of COVID-19 infection -Continue DuoNebs every 6 hours and budesonide nebs twice daily (12) HLD (hyperlipidemia): Continue statin (13) PVD (peripheral vascular disease): Continue aspirin, statin (14) CKD (chronic kidney disease): Baseline creatinine 0.6 With acute kidney injury as above now resolved -Avoid nephrotoxins -renally dose meds when appropriate -follow BMP (15) Elevated troponin: Troponin elevated at 0.18 on admission, likely secondary to demand ischemia from sepsis and profound dehydration -Trend serial troponin--> went back down to 0.12 ECG without ischemic changes Impossible to tell if he is symptomatic He would be a very poor candidate for intervention and this would likely be against his sister's wishes to avoid aggressive intervention -no echocardiogram necessary (16) 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 Contined stay but stable for downgrade to medical from PCU. Back to NH likely in 1-2 days DNR/DNI Admission and Anticipated Discharge Date Admission Date: February 08, 2020 Subjective Pt much more alert and awake today. Is grunting and has unintelligible speech when asked a question. He does gesture towards his TV and grunt at it when I was examining him. He apparently was putting his fingers in his feces and then rubbed it on the RN's face shield today-unclear if intentional. Moving bowels and is at goal on tube feeds. Tele with NSR and ST 80s-120s at times Review of Systems Review of Systems: Unobtainable due to cognitive status Physical Exam Constitutional: + ill appearing, + thin and + cachectic; no acute distress Eyes: + anicteric sclerae ENMT: Nose: no nasal discharge Neck: trachea midline, no thyromegaly Respiratory: no labored breathing Auscultation: + rhonchi (a few scattered, improved today); no wheezes Cardiovascular: Rate/Rhythm: regular rate and regular rhythm Heart Sounds: no murmur Extremities: no edema Chest (Breasts): Chest: normal inspection of chest Gastrointestinal (Abdomen): Inspection/Auscultation: normal bowel sounds; + abdomen abnormal to inspection (With PEG tube in place) and abdomen not distended Percussion/Palpation: abdomen soft; abdomen nontender Musculoskeletal: Extremities: + extremities abnormal to inspection (With sarcopenia), no cyanosis and no clubbing Neurologic: + focal motor deficit (Right-sided hemiparesis) and awake Speech / Cognition: + expressive aphasia Genitourinary: no penis abnormality (Grace catheter in place) Lymphatic: no lymphedema Results & Data Results & Data ([facility]) Vital Signs (Past 12 Hours) Vital Signs Temp Pulse Resp BP Pulse Ox 02/10/20 13:07 89 18 94 02/10/20 11:20 37.4 C 87 20 105/61 92 02/10/20 07:11 89 18 91 02/10/20 07:00 36.9 C 91 H 20 102/67 91 02/10/20 04:00 37.1 C 88 20 103/70 93 Laboratory Results labs reviewed, sodium trending down, hypokalemia, WBC count trending downward, mild thrombocytopenia Ur cx with Strep species and alpha strep not Enterococcus BCxs NGTD PG Care Time/CCT Total # of Minutes Spent Total Time Spent with Patient: Total time spent is greater than 50% in coordination of care (as documented) at patient's floor/unit and/or counseling patient: Coding Level of Care Code 50329 Subseq Hosp Care Lvl 3 Diagnoses Sepsis A41.9 Sepsis acute organ dysfunction status: unspecified Sepsis type: sepsis due to unspecified organism Pneumonia J18.9 Laterality: unspecified laterality Lung location: unspecified part of lung Pneumonia type: due to unspecified organism Acute and chronic respiratory failure J96.20 Acute hypernatremia E87.0 Acute dehydration E86.0 Type 2 diabetes mellitus with hyperglycemia E11.65 BEBE (acute kidney injury) N17.9 Epilepsy G40.909 Epilepsy type: unspecified Intractability: not intractable Status epilepticus: without status epilepticus GERD (gastroesophageal reflux disease) K21.9 Esophagitis presence: esophagitis presence not specified History of CVA (cerebrovascular accident) Z86.73 COPD (chronic obstructive pulmonary disease) J44.9 COPD type: unspecified COPD HLD (hyperlipidemia) E78.5 Hyperlipidemia type: unspecified PVD (peripheral vascular disease) I73.9 CKD (chronic kidney disease) N18.9 Chronic kidney disease stage: unspecified stage Elevated troponin R79.89 History of venous thrombosis and embolism Z86.718 Hypokalemia E87.6 DVT prophylaxis Z29.9 (1) Epilepsy Epilepsy type: unspecified Intractability: not intractable Status epilepticus: without status epilepticus Qualified Code(s): G40.909 - Epilepsy, unspecified, not intractable, without status epilepticus (2) HLD (hyperlipidemia) Hyperlipidemia type: unspecified Qualified Code(s): E78.5 - Hyperlipidemia, unspecified (3) CKD (chronic kidney disease) Chronic kidney disease stage: unspecified stage Qualified Code(s): N18.9 - Chronic kidney disease, unspecified (4) Sepsis Sepsis acute organ dysfunction status: unspecified Sepsis type: sepsis due to unspecified organism Qualified Code(s): A41.9 - Sepsis, unspecified organism (5) COPD (chronic obstructive pulmonary disease) COPD type: unspecified COPD Qualified Code(s): J44.9 - Chronic obstructive pulmonary disease, unspecified (6) GERD (gastroesophageal reflux disease) Esophagitis presence: esophagitis presence not specified Qualified Code(s): K21.9 - Gastro-esophageal reflux disease without esophagitis (7) Pneumonia Laterality: unspecified laterality Lung location: unspecified part of lung Pneumonia type: due to unspecified organism Qualified Code(s): J18.9 - Pneumonia, unspecified organism
[2020-02-10] MEDS ORDERED: LEVOFLOXACIN/D5W 750 MG/150 ML BAG IV SCH (16:00)
[2020-02-10] MEDS: LEVOFLOXACIN/D5W 750 MG/150 ML BAG IV SCH (16:28)
[2020-02-10] MEDS ORDERED: INSULIN GLARGINE SOLOSTAR 100 UNITS/ML 3 ML PEN SC SCH ×3 (16:30→21:00)
[2020-02-10] MEDS: RIVAROXABAN 20 MG TAB PO SCH (16:31)
[2020-02-10] MEDS: INSULIN REGULAR 250 UNITS in SODIUM CHLORIDE 0.9% 247.5 ML IV SCH (18:01)
[2020-02-10] MEDS: ATORVASTATIN 20 MG TAB GT SCH (21:37)
[2020-02-11] MEDS: TUBE FEEDING WATER FLUSH GT SCH ×6 (00:01→20:21)
[2020-02-11] MEDS: INSULIN ASPART 100 UNITS/ML 3 ML PEN SC SCH ×6 (00:09→20:28)
[2020-02-11] MEDS: ACETAMINOPHEN SOLN 650 MG/20.3 ML UDC GT PRN ×2 (00:48→12:38)
[2020-02-11] MEDS: ALBUT/IPRATROP 3MG/0.5MG NEB 3 ML VIAL INH SCH ×4 (01:19→19:07)
[2020-02-11] MEDS ORDERED: VANCOMYCIN TROUGH ONE ×2 (05:30→11:30)
[2020-02-11] MEDS: SODIUM CHLORIDE 0.45 % 1,000 ML IV SCH (06:35)
[2020-02-11] MEDS: BUDESONIDE 0.5 MG/2 ML VIAL (PULMICORT) INH SCH ×3 (07:28→19:10)
[2020-02-11 07:54] LABS: Mean Corpuscular Hgb Conc 31.7 g/dL (32-36)
[2020-02-11] MEDS ORDERED: INSULIN GLARGINE SOLOSTAR 100 UNITS/ML 3 ML PEN SC ONE (08:00)
[2020-02-11 08:08] LABS: BUN Creatinine Ratio 17.7 (10-20); Calcium 8.7 mg/dl (8.5-10.1); Creatinine Clr Calc Pharmacy 119.3 ml/min; Est GFR (African American) 115.9; Magnesium 2.2 mg/dl (1.8-2.4); Phosphorus 2.2 mg/dl (2.5-4.9); Potassium 3.8 mmol/L (3.5-5.1)
[2020-02-11 08:20] LABS: Hematocrit (blood only) 40.7 % (42-52); Hemoglobin 12.9 g/dL (14.0-18.0); Mean Corpuscular Hemoglobin 32.5 pg (25-34); Mean Corpuscular Volume 102.5 fL (80-100); Mean Platelet Volume 14.2 fL (7.4-10.4); Platelet Count 121 K/uL (130-400); RDW Coefficient of Variation 13.7 % (11.5-14.5); RDW Standard Deviation 51.5 fL (36.4-46.3); Red Blood Count 3.97 M/uL (4.7-6.1); White Blood Count 12.88 K/uL (4.8-10.8)
[2020-02-11 08:21] LABS: Basophils # (auto) 0.02 K/uL (0-0.2); Basophils % (auto) 0.2 %; Eosinophils # (auto) 0.26 K/uL (0-0.5); Immature Granulocytes # (auto) 0.05 K/uL (0.00-0.02); Immature Granulocytes % (auto) 0.4 %; Lymphocytes # (auto) 1.31 K/uL (1.2-3.4); Lymphocytes % (auto) 10.2 %; Monocytes # (auto) 0.87 K/uL (0.11-0.59); Monocytes % (auto) 6.8 %; Neutrophils # (auto) 10.37 K/uL (1.4-6.5); Neutrophils % (auto) 80.4 %; Platelet Estimate Decreased (Normal)
[2020-02-11] MEDS: PIPERACILLIN/TAZOBACTAM 3.375 GM in DEXTROSE 5% 100 ML IV SCH ×3 (08:22→16:46)
[2020-02-11] MEDS: SACCHAROMYCES BOULARDII 250 MG CAP PO SCH ×3 (08:25→20:30)
[2020-02-11] MEDS: guaiFENesin SUGAR FREE 200 MG/10 ML UDC PO SCH ×4 (08:25→20:22)
[2020-02-11] MEDS: PROSOURCE NO CARB 30 ML/PKT PEG SCH ×3 (08:25→20:23)
[2020-02-11] MEDS: CITALOPRAM 40 MG TAB GT SCH (08:26)
[2020-02-11] MEDS ORDERED: POTASSIUM PHOS 3 MMOL/1 ML INFUSION IV STA (08:26)
[2020-02-11] MEDS: LANSOPRAZOLE 30 MG SOLTAB GT SCH (08:26)
[2020-02-11] MEDS: CARBAMAZEPINE 100 MG CHEW TAB PO SCH ×3 (08:26→20:22)
[2020-02-11] MEDS: AMMONIUM LACTATE 12% LOTION 225 GM BTL EXT SCH ×2 (08:26→20:31)
[2020-02-11] MEDS: levETIRAcetam ORAL SOLN 100MG/ML PO SCH ×2 (08:28→16:46)
[2020-02-11] MEDS: TRAZODONE HCL 50 MG TAB GT SCH ×2 (08:29→20:30)
[2020-02-11] MEDS: PEPTAMEN 1.5 CAL 1,000 ML BAG PEG SCH (08:44)
[2020-02-11] MEDS: ASPIRIN 81 MG CHEW GT SCH (08:44)
[2020-02-11] MEDS ORDERED: POTASSIUM PHOSPHATE 15 MMOL in SODIUM CHLORIDE 0.9% 250 ML IV ONE (09:00)
--- NOTE | 2020-02-11 10:59 | Pharmacy Report ---
Pharmacy Glycemic Short Note 2 - Date of Service February 11, 2020 - Glycemic Short BSG Results (Last 24 hours): 02/10/20 02/10/20 02/10/20 14:38 16:18 21:32 Glucose POC Glucose 225 H 224 H 314 H* 02/10/20 02/11/20 02/11/20 21:35 00:07 04:05 Glucose POC Glucose 281 H 248 H 188 H 02/11/20 02/11/20 07:05 07:54 Glucose 170 H POC Glucose 169 H OUTPATIENT ANTIDIABETIC REGIMEN: * Per med rec: * Lantus 20-25 units BID * Humalog 20 units daily prn * A1c = 8.7% 02/09/20 ASSESSMENT: 02/10: * Patient received total of 83 units of insulin yesterday, of which 35 were basal insulin * BSG this AM 169 mg/dL - improvement since yesterday * Continues on continuous tube feedings at goal rate - 40 ml/hr ; will tighten CF/CR more this AM to help with improvement of BSGs 02/09: * BSGs stable over last 12 hours - one above 200 at midnight. Insulin gtt rate stable this morning * Na continuing to improve more this AM / serum osmolality improving as well closer to range * Ordered Lantus 15 units this am - same basal dose as yesterday AM ; plan to d/c insulin drip * Will order Q4 hr checks - add Lantus scale for tonight 02/08: * Patient admitted with [facility] on IV insulin infusion * Hyperglycemia had initially improved on IV insulin infusion. BSGs decreased into the mid to high 200s last evening. BSGs then started to trend back upward to the 300-400 mg/dL range. I suspect this was due to resumption of continuous fibersource tube feeds. Tube feeds were held this morning. Improvement in glycemic control noted after this change. * Conservatively dosed basal insulin has been overlapped with IV infusion. Lantus 15 units SQ was ordered for this morning (tube feeds on hold at this time - pt NPO). This will be increased for PM dose. Patient required 25 units BID on previous admission. * Tube feeds resumed as of 1400 today. Peptamen started at low infusion rate of 10 ml/hr (delivers 8 grams CHO over 4 hours). * Estimated serum osmolality to be ~343 mOsm/kg based on 1215 labs. Will contin ue IV insulin infusion until normal serum osmolality achieved. PLAN FOR INPATIENT GLYCEMIC CONTROL: * Basal insulin * Lantus 20 this AM * then Lantus 15-25 BID based upon BSG - see EMAR for further details * Bolus insulin - novolog Q4 hr checks - tighten * Goal 110-140 * CF 12 CR 4
[2020-02-11] MEDS: VANCOMYCIN HCL 1,250 MG in SODIUM CHLORIDE 0.9% 250 ML IV SCH ×2 (12:38)
[2020-02-11] MEDS: VANCOMYCIN HCL 1,000 MG in SODIUM CHLORIDE 0.9% 250 ML IV SCH ×2 (13:13→20:20)
--- NOTE | 2020-02-11 13:26 | Pharmacy Report ---
Pharmacy Abx Dose Short Note - Date of Service February 11, 2020 - Assessment & Plan Assessment 64 year old M receiving empiric vancomycin and Zosyn for treatment of sepsis secondary to pneumonia Day # 4 of antimicrobial therapy. Significant improvement in renal function noted (current SCr: 0.72 mg/dL). MRSA nasal swab positive. Urine culture: Enterococcus raffinosus (sensitive to penicillin, vancomycin) Blood cultures x 2: no growth at 48 hours Plan Vancomycin * Trough level of 11.6 mcg/mL is subtherapeutic * Change to 1000 mg IV every 8 hours starting with 2000 dose this evening * Goal trough level for pneumonia : 15 to 20 mcg/mL * Trough level ordered for: 02/12/20 @1130 Zosyn * 3.375 g IV q8h remains appropriate Pharmacy will continue to follow and will adjust dose/frequency as necessary. Thank you.
[2020-02-11] MEDS: RIVAROXABAN 20 MG TAB PO SCH (15:39)
[2020-02-11] MEDS: INSULIN GLARGINE SOLOSTAR 100 UNITS/ML 3 ML PEN SC SCH (15:41)
[2020-02-11] MEDS: methylPREDNISolone 60 MG in SYRINGE 0 ML IV SCH (16:46)
--- NOTE | 2020-02-11 19:22 | Hospitalist Progress Note ---
Date of Service February 11, 2020 Assessment & Plan (1) Sepsis: With tachycardia, tachypnea, hypoxia, elevated lactate, leukocytosis, hypotension, fever, and left lower lobe infiltrate on chest x-ray as well as abnormal UA as sources of infection Has a history of aspiration pneumonia and also resides in [place] [facility] facility Had human metapneumovirus 2 and half weeks ago Repeat viral respiratory panel here negative COVID-19 test was sent and came back today as "test not performed" due to insufficient quantity-repeat test was sent off on 02/10 Improving overall-no further tachycardia, hypotension resolved, lactate decreased slightly, no further fevers, hypoxia resolved, leukocytosis improved Growing Enterococcus raffinosus and Alpha strep not enterococcus in urine- sensitivities noted, BCxs NGTD Repeat CXR confirms Left sided PNA -continue airborne precautions-ruling out COVID-19 -Continue Zosyn for urine as well as pneumonia and vancomycin for pneumonia given positive MRSA swab -Follow CBC, CMP -Follow blood cultures (2) Pneumonia: With left lower lobe infiltrate on chest x-ray reconfirmed after hydration on CXR 02/08 He was profoundly dehydrated on admission PCT mildly elevated at 0.68 and then decreased to 0.35 -He has from a healthcare facility and has a history of MRSA as well as aspiration pneumonia -Received cefepime, vancomycin, and levofloxacin in the ER x1 dose each -MRSA nasal swab positive-continue vancomycin -continue IV Zosyn to cover for gram-negative pneumonia and anaerobes in the case of aspiration, as well as for enterococcus in urine as above -Have since discontinued levofloxacin - CRP, ferritin and D-dimer all elevated - LDH normal -Checking [id number] to send out a new sample on 02/10 -continue Supplemental O2 as needed to keep pulse ox greater than 92%-is now weaned off -Starting steroids for worsening wheezing and rhonchi on 02/10 -Continue duo nebs -Continue budesonide nebulized (3) Acute and chronic respiratory failure: Chronically on 2 L nasal cannula at nighttime With a history of COPD With rhonchi and wheezing on examination again today -Adding steroids -Continue nebulizers and inhaled steroids as above -Supplemental O2 to keep pulse ox greater than 92% -Treating pneumonia as above (4) Acute hypernatremia: Corrected sodium for hyperglycemia is 167 on admission Free water deficit was 6.7 L on admission Was given 2 L of normal saline in the ER and then several days of half-normal saline at 150 mL's per hour -Na+ now down to 146 -DC IV fluids -Continue tube feeds with free water flushes -Follow BMP (5) Acute dehydration: Secondary to febrile illness, PEG tube dependence, and severe hyperglycemia Much improved with IV fluids (6) Type 2 diabetes mellitus with hyperglycemia: With HHS, Acute metabolic encephalopathy Glucose in the mid 500s on admission with profound dehydration as above now much improved Weaned off Insulin drip, on basal and bolus insulin as per Pharmacy management Hemoglobin A1c 8.7% here Holding home metformin (7) BEBE (acute kidney injury): With creatinine of 1.8 on admission and now normal after hydration -Follow BMP Secondary to hyperglycemia and dehydration (8) Epilepsy: No obvious seizures -Continue home Tegretol and Keppra Monitor (9) GERD (gastroesophageal reflux disease): Continue PPI through PEG tube (10) History of CVA (cerebrovascular accident): With a history of right-sided hemiparesis and significant aphasia, with PEG tube and total care -Continue on Xarelto, aspirin, statin -Frequent turning and total care (11) COPD (chronic obstructive pulmonary disease): With chronic O2 at bedtime With rhonchi and wheezing here intermittently but now weaned off oxygen during the day -Previously avoiding steroids in case of COVID-19 infection, however with worsening respiratory status on 02/10-started IV Solu-Medrol 60 mg IV every 12 -Continue DuoNebs and budesonide nebs twice daily (12) HLD (hyperlipidemia): Continue statin (13) PVD (peripheral vascular disease): Continue aspirin, statin (14) CKD (chronic kidney disease): Baseline creatinine 0.6 With acute kidney injury as above now resolved -Avoid nephrotoxins -renally dose meds when appropriate -follow BMP (15) Elevated troponin: Troponin elevated at 0.18 on admission, likely secondary to demand ischemia from sepsis and profound dehydration -Trend serial troponin--> went back down to 0.12 ECG without ischemic changes Impossible to tell if he is symptomatic He would be a very poor candidate for intervention and this would likely be against his sister's wishes to avoid aggressive intervention -no echocardiogram necessary (16) 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 Continued stay until COVID-19 is negative as he is to return to a [place] DNR/DNI Admission and Anticipated Discharge Date Admission Date: February 08, 2020 Subjective Patient was having gurgling respiratory sounds as per nursing earlier and his IV fluids were stopped. He was started on steroids by myself. When I saw him, he was sleeping and would not wake up to verbal stimulus. He appeared in no acute distress. Review of Systems Review of Systems: Unobtainable due to cognitive status Physical Exam Constitutional: + thin and + cachectic; no acute distress Eyes: + anicteric sclerae ENMT: Nose: no nasal discharge Neck: trachea midline, no thyromegaly Respiratory: no labored breathing Auscultation: + rhonchi (a few scattered, improved today); no wheezes Cardiovascular: Rate/Rhythm: regular rate and regular rhythm Heart Sounds: no murmur Extremities: no edema Chest (Breasts): Chest: normal inspection of chest Gastrointestinal (Abdomen): Inspection/Auscultation: normal bowel sounds; + abdomen abnormal to inspection (With PEG tube in place) and abdomen not distended Percussion/Palpation: abdomen soft; abdomen nontender Musculoskeletal: Extremities: + extremities abnormal to inspection (With sarcopenia), no cyanosis and no clubbing Neurologic: + focal motor deficit (Right-sided hemiparesis) Speech / Cognition: + expressive aphasia Lymphatic: no lymphedema Results & Data Results & Data ([facility]) Vital Signs (Past 12 Hours) Vital Signs Temp Pulse Pulse Pulse Resp BP Pulse Ox 02/11/20 18:29 36.2 C L 88 20 129/76 93 02/11/20 15:38 37 C 92 H 18 121/76 93 02/11/20 13:54 85 18 93 02/11/20 12:17 38.0 C H 95 H 22 118/70 92 02/11/20 11:10 84 02/11/20 08:00 36.4 C L 79 87 24 126/83 95 02/11/20 07:30 91 H 18 92 Laboratory Results 02/11/20 02/11/20 02/11/20 Range/Units 15:37 12:00 11:50 WBC (4.8-10.8) K/uL RBC (4.7-6.1) M/uL Hgb (14.0-18.0) g/dL Hct (42-52) % MCV (80-100) fL MCH (25-34) pg MCHC (32-36) g/dL RDW Std Deviation (36.4-46.3) fL RDW Coeff of Nick (11.5-14.5) % Plt Count (130-400) K/uL MPV (7.4-10.4) fL Immature Gran % (Auto) % Neut % (Auto) % Lymph % (Auto) % [place] % (Auto) % Eos % (Auto) % Baso % (Auto) % Immature Gran # (Auto) (0.00-0.02) K/uL Neut # (Auto) (1.4-6.5) K/uL Lymph # (Auto) (1.2-3.4) K/uL [place] # (Auto) (0.11-0.59) K/uL Eos # (Auto) (0-0.5) K/uL Baso # (Auto) (0-0.2) K/uL Platelet Estimate (Normal) Sodium (136-145) mmol/L Potassium (3.5-5.1) mmol/L Chloride (98-107) mmol/L Carbon Dioxide (21-32) mmol/L Anion Gap (3-11) BUN (7-18) mg/dl Creatinine (0.6-1.4) mg/dl Est Cr Clr Drug Dosing ml/min Est GFR ( Amer) Est GFR (Non-Af Amer) BUN/Creatinine Ratio (10-20) Glucose (70-99) mg/dl POC Glucose 208 H 259 H (70-99) mg/dl Calcium (8.5-10.1) mg/dl Phosphorus (2.5-4.9) mg/dl Magnesium (1.8-2.4) mg/dl Vancomycin Trough 11.6 (See Comment) mcg/ml SARS-CoV-2 RNA (RT-PCR) 02/11/20 02/11/20 02/11/20 Range/Units 09:35 07:54 07:05 WBC (4.8-10.8) K/uL RBC (4.7-6.1) M/uL Hgb (14.0-18.0) g/dL Hct (42-52) % MCV (80-100) fL MCH (25-34) pg MCHC (32-36) g/dL RDW Std Deviation (36.4-46.3) fL RDW Coeff of Nick (11.5-14.5) % Plt Count (130-400) K/uL MPV (7.4-10.4) fL Immature Gran % (Auto) % Neut % (Auto) % Lymph % (Auto) % [place] % (Auto) % Eos % (Auto) % Baso % (Auto) % Immature Gran # (Auto) (0.00-0.02) K/uL Neut # (Auto) (1.4-6.5) K/uL Lymph # (Auto) (1.2-3.4) K/uL [place] # (Auto) (0.11-0.59) K/uL Eos # (Auto) (0-0.5) K/uL Baso # (Auto) (0-0.2) K/uL Platelet Estimate (Normal) Sodium 146 H (136-145) mmol/L Potassium 3.8 D (3.5-5.1) mmol/L Chloride 114 H (98-107) mmol/L Carbon Dioxide 29 (21-32) mmol/L Anion Gap 2.0 L (3-11) BUN 13 (7-18) mg/dl Creatinine 0.72 (0.6-1.4) mg/dl Est Cr Clr Drug Dosing 119.3 ml/min Est GFR ( Amer) 115.9 Est GFR (Non-Af Amer) 100.0 BUN/Creatinine Ratio 17.7 (10-20) Glucose 170 H (70-99) mg/dl POC Glucose 169 H (70-99) mg/dl Calcium 8.7 (8.5-10.1) mg/dl Phosphorus 2.2 L D (2.5-4.9) mg/dl Magnesium 2.2 (1.8-2.4) mg/dl Vancomycin Trough (See Comment) mcg/ml SARS-CoV-2 RNA (RT-PCR) Pending 02/11/20 02/11/20 02/11/20 Range/Units 07:05 04:05 00:07 WBC 12.88 H (4.8-10.8) K/uL RBC 3.97 L (4.7-6.1) M/uL Hgb 12.9 L (14.0-18.0) g/dL Hct 40.7 L (42-52) % MCV 102.5 H (80-100) fL MCH 32.5 (25-34) pg MCHC 31.7 L (32-36) g/dL RDW Std Deviation 51.5 H (36.4-46.3) fL RDW Coeff of Nick 13.7 (11.5-14.5) % Plt Count 121 L (130-400) K/uL MPV 14.2 H (7.4-10.4) fL Immature Gran % (Auto) 0.4 % Neut % (Auto) 80.4 % Lymph % (Auto) 10.2 % [place] % (Auto) 6.8 % Eos % (Auto) 2.0 % Baso % (Auto) 0.2 % Immature Gran # (Auto) 0.05 H (0.00-0.02) K/uL Neut # (Auto) 10.37 H (1.4-6.5) K/uL Lymph # (Auto) 1.31 (1.2-3.4) K/uL [place] # (Auto) 0.87 H (0.11-0.59) K/uL Eos # (Auto) 0.26 (0-0.5) K/uL Baso # (Auto) 0.02 (0-0.2) K/uL Platelet Estimate Decreased L (Normal) Sodium (136-145) mmol/L Potassium (3.5-5.1) mmol/L Chloride (98-107) mmol/L Carbon Dioxide (21-32) mmol/L Anion Gap (3-11) BUN (7-18) mg/dl Creatinine (0.6-1.4) mg/dl Est Cr Clr Drug Dosing ml/min Est GFR ( Amer) Est GFR (Non-Af Amer) BUN/Creatinine Ratio (10-20) Glucose (70-99) mg/dl POC Glucose 188 H 248 H (70-99) mg/dl Calcium (8.5-10.1) mg/dl Phosphorus (2.5-4.9) mg/dl Magnesium (1.8-2.4) mg/dl Vancomycin Trough (See Comment) mcg/ml SARS-CoV-2 RNA (RT-PCR) 02/10/20 02/10/20 02/08/20 Range/Units 21:35 21:32 15:30 WBC (4.8-10.8) K/uL RBC (4.7-6.1) M/uL Hgb (14.0-18.0) g/dL Hct (42-52) % MCV (80-100) fL MCH (25-34) pg MCHC (32-36) g/dL RDW Std Deviation (36.4-46.3) fL RDW Coeff of Nick (11.5-14.5) % Plt Count (130-400) K/uL MPV (7.4-10.4) fL Immature Gran % (Auto) % Neut % (Auto) % Lymph % (Auto) % [place] % (Auto) % Eos % (Auto) % Baso % (Auto) % Immature Gran # (Auto) (0.00-0.02) K/uL Neut # (Auto) (1.4-6.5) K/uL Lymph # (Auto) (1.2-3.4) K/uL [place] # (Auto) (0.11-0.59) K/uL Eos # (Auto) (0-0.5) K/uL Baso # (Auto) (0-0.2) K/uL Platelet Estimate (Normal) Sodium (136-145) mmol/L Potassium (3.5-5.1) mmol/L Chloride (98-107) mmol/L Carbon Dioxide (21-32) mmol/L Anion Gap (3-11) BUN (7-18) mg/dl Creatinine (0.6-1.4) mg/dl Est Cr Clr Drug Dosing ml/min Est GFR ( Amer) Est GFR (Non-Af Amer) BUN/Creatinine Ratio (10-20) Glucose (70-99) mg/dl POC Glucose 281 H 314 H* (70-99) mg/dl Calcium (8.5-10.1) mg/dl Phosphorus (2.5-4.9) mg/dl Magnesium (1.8-2.4) mg/dl Vancomycin Trough (See Comment) mcg/ml SARS-CoV-2 RNA (RT-PCR) TNP PG Care Time/CCT Total # of Minutes Spent Total Time Spent with Patient: Total time spent is greater than 50% in coordi nation of care (as documented) at patient's floor/unit and/or counseling patient: Coding Level of Care Code 61265 Subseq Hosp Care Lvl 3 Diagnoses Sepsis A41.9 Sepsis acute organ dysfunction status: unspecified Sepsis type: sepsis due to unspecified organism Pneumonia J18.9 Laterality: unspecified laterality Lung location: unspecified part of lung Pneumonia type: due to unspecified organism Acute and chronic respiratory failure J96.20 Acute hypernatremia E87.0 Acute dehydration E86.0 Type 2 diabetes mellitus with hyperglycemia E11.65 BEBE (acute kidney injury) N17.9 Epilepsy G40.909 Epilepsy type: unspecified Intractability: not intractable Status epilepticus: without status epilepticus GERD (gastroesophageal reflux disease) K21.9 Esophagitis presence: esophagitis presence not specified History of CVA (cerebrovascular accident) Z86.73 COPD (chronic obstructive pulmonary disease) J44.9 COPD type: unspecified COPD HLD (hyperlipidemia) E78.5 Hyperlipidemia type: unspecified PVD (peripheral vascular disease) I73.9 CKD (chronic kidney disease) N18.9 Chronic kidney disease stage: unspecified stage Elevated troponin R79.89 History of venous thrombosis and embolism Z86.718 Hypokalemia E87.6 DVT prophylaxis Z29.9 (1) Epilepsy Epilepsy type: unspecified Intractability: not intractable Status epilepticus: without status epilepticus Qualified Code(s): G40.909 - Epilepsy, unspecified, not intractable, without status epilepticus (2) HLD (hyperlipidemia) Hyperlipidemia type: unspecified Qualified Code(s): E78.5 - Hyperlipidemia, unspecified (3) CKD (chronic kidney disease) Chronic kidney disease stage: unspecified stage Qualified Code(s): N18.9 - Chronic kidney disease, unspecified (4) Sepsis Sepsis acute organ dysfunction status: unspecified Sepsis type: sepsis due to unspecified organism Qualified Code(s): A41.9 - Sepsis, unspecified organism (5) COPD (chronic obstructive pulmonary disease) COPD type: unspecified COPD Qualified Code(s): J44.9 - Chronic obstructive pulmonary disease, unspecified (6) GERD (gastroesophageal reflux disease) Esophagitis presence: esophagitis presence not specified Qualified Code(s): K21.9 - Gastro-esophageal reflux disease without esophagitis (7) Pneumonia Laterality: unspecified laterality Lung location: unspecified part of lung Pneumonia type: due to unspecified organism Qualified Code(s): J18.9 - Pneumonia, unspecified organism
[2020-02-11] MEDS ORDERED: INSULIN GLARGINE SOLOSTAR 100 UNITS/ML 3 ML PEN SC SCH (20:00)
[2020-02-11] MEDS: ATORVASTATIN 20 MG TAB GT SCH (20:30)
[2020-02-12] MEDS: ALBUT/IPRATROP 3MG/0.5MG NEB 3 ML VIAL INH SCH ×4 (00:53→18:56)
[2020-02-12] MEDS: PIPERACILLIN/TAZOBACTAM 3.375 GM in DEXTROSE 5% 100 ML IV SCH ×3 (01:39→15:57)
[2020-02-12] MEDS: TUBE FEEDING WATER FLUSH GT SCH ×6 (01:40→21:14)
[2020-02-12] MEDS: INSULIN ASPART 100 UNITS/ML 3 ML PEN SC SCH ×6 (01:47→20:46)
[2020-02-12] MEDS: VANCOMYCIN HCL 1,000 MG in SODIUM CHLORIDE 0.9% 250 ML IV SCH ×3 (04:43→12:29)
[2020-02-12] MEDS: methylPREDNISolone 60 MG in SYRINGE 0 ML IV SCH ×2 (04:43→16:12)
[2020-02-12] MEDS: BUDESONIDE 0.5 MG/2 ML VIAL (PULMICORT) INH SCH ×2 (07:32→18:56)
[2020-02-12] MEDS: guaiFENesin SUGAR FREE 200 MG/10 ML UDC PO SCH ×4 (08:51→20:45)
[2020-02-12] MEDS: levETIRAcetam ORAL SOLN 100MG/ML PO SCH ×2 (08:51→16:13)
[2020-02-12] MEDS: DOCUSATE SODIUM SYRUP 100 MG/10 ML UDC PO SCH (08:51)
[2020-02-12] MEDS: LANSOPRAZOLE 30 MG SOLTAB GT SCH (08:52)
[2020-02-12] MEDS: SACCHAROMYCES BOULARDII 250 MG CAP PO SCH ×3 (08:52→20:44)
[2020-02-12] MEDS: CITALOPRAM 40 MG TAB GT SCH (08:52)
[2020-02-12] MEDS: CARBAMAZEPINE 100 MG CHEW TAB PO SCH ×3 (08:53→20:50)
[2020-02-12] MEDS: PROSOURCE NO CARB 30 ML/PKT PEG SCH ×3 (08:54→20:45)
[2020-02-12] MEDS: ASPIRIN 81 MG CHEW GT SCH (09:09)
[2020-02-12] MEDS: TRAZODONE HCL 50 MG TAB GT SCH ×2 (09:09→20:54)
--- NOTE | 2020-02-12 09:11 | Pharmacy Report ---
Pharmacy Glycemic Short Note 2 - Date of Service February 12, 2020 - Glycemic Short BSG Results (Last 24 hours): 02/11/20 02/11/20 02/11/20 11:50 15:37 20:19 POC Glucose 259 H 208 H 172 H 02/12/20 02/12/20 01:46 04:48 POC Glucose 219 H 149 H OUTPATIENT ANTIDIABETIC REGIMEN: * Per med rec: * Lantus 20-25 units BID * Humalog 20 units daily prn * A1c = 8.7% 02/09/20 ASSESSMENT: 02/11: * Patient received a total of 103 units of insulin yesterday, 45 basal + 58 bolus * BSG this AM was ----- mg/dL - improved/worsened from yesterday * Continues on continuous tube feeds at goal rate of 40 mL/hr; tightened CF/CR further today * Will increase basal insulin as well to account for steroid induced hyperglycemia 02/10: * Patient received total of 83 units of insulin yesterday, of which 35 were basal insulin * BSG this AM 169 mg/dL - improvement since yesterday * Continues on continuous tube feedings at goal rate - 40 ml/hr ; will tighten CF/CR more this AM to help with improvement of BSGs 02/09: * BSGs stable over last 12 hours - one above 200 at midnight. Insulin gtt rate stable this morning * Na continuing to improve more this AM / serum osmolality improving as well closer to range * Ordered Lantus 15 units this am - same basal dose as yesterday AM ; plan to d/c insulin drip * Will order Q4 hr checks - add Lantus scale for tonight 02/08: * Patient admitted with HHS on IV insulin infusion * Hyperglycemia had initially improved on IV insulin infusion. BSGs decreased into the mid to high 200s last evening. BSGs then started to trend back upward to the 300-400 mg/dL range. I suspect this was due to resumption of continuous fibersource tube feeds. Tube feeds were held this morning. Improvement in glycemic control noted after this change. * Conservatively dosed basal insulin has been overlapped with IV infusion. Lantus 15 units SQ was ordered for this morning (tube feeds on hold at this time - pt NPO). This will be increased for PM dose. Patient required 25 units BID on previous admission. * Tube feeds resumed as of 1400 today. Peptamen started at low infusion rate of 10 ml/hr (delivers 8 grams CHO over 4 hours). * Estimated serum osmolality to be ~343 mOsm/kg based on 1215 labs. Will continue IV insulin infusion until normal serum osmolality achieved. PLAN FOR INPATIENT GLYCEMIC CONTROL: * Basal insulin - BID (increased) * Lantus 25 units for BSG 180 mg/dL or less * Lantus 30 units for BSG greater than 180 mg/dL * Bolus insulin - novolog Q4 hr checks * Goal 110-140 * Tightened: CF 10 CR 3 DISCHARGE RECOMMENDATIONS: * pending at this time
[2020-02-12] MEDS: AMMONIUM LACTATE 12% LOTION 225 GM BTL EXT SCH ×2 (09:25→21:50)
[2020-02-12] MEDS: INSULIN GLARGINE SOLOSTAR 100 UNITS/ML 3 ML PEN SC SCH ×2 (09:46→15:57)
[2020-02-12] MEDS ORDERED: VANCOMYCIN TROUGH ONE (11:30)
[2020-02-12] MEDS: PEPTAMEN 1.5 CAL 1,000 ML BAG PEG SCH (12:13)
--- NOTE | 2020-02-12 12:47 | Pharmacy Report ---
Pharmacy Abx Dose Short Note - Date of Service February 12, 2020 - Assessment & Plan Assessment 64 year old M receiving empiric vancomycin and Zosyn for treatment of sepsis secondary to pneumonia & UTI Day # 5 of antimicrobial therapy. MRSA nasal swab positive. Urine culture: Enterococcus raffinosus (sensitive to penicillin, vancomycin) Blood cultures x 2: no growth at 48 hours Plan Vancomycin * Trough level of 20.7 mcg/mL is slightly supratherapeutic * Change to 1250 mg IV every 12 hours * Goal trough: 15 to 20 mcg/mL * Trough level ordered for: 02/13 @ 1130 prior to the 5th maintenance dose to reflect steady state levels Zosyn * 3.375 g IV q8h remains appropriate Pharmacy will continue to follow and will adjust dose/frequency as necessary. Thank you.
[2020-02-12 13:10] LABS: BUN Creatinine Ratio 20.6 (10-20); Calcium 8.9 mg/dl (8.5-10.1); Creatinine Clr Calc Pharmacy 115.4 ml/min; Est GFR (African American) 113.9; Est GFR (Non-African American) 98.3; Magnesium 2.2 mg/dl (1.8-2.4); Potassium 3.5 mmol/L (3.5-5.1)
[2020-02-12 13:12] LABS: Phosphorus 3.1 mg/dl (2.5-4.9)
--- NOTE | 2020-02-12 15:00 | Hospitalist Progress Note ---
Date of Service February 12, 2020 Assessment & Plan (1) Sepsis: With tachycardia, tachypnea, hypoxia, elevated lactate, leukocytosis, hypotension, fever, and left lower lobe infiltrate on chest x-ray as well as abnormal UA as sources of infection Has a history of aspiration pneumonia and also resides in a retirement facility Had human metapneumovirus 2 and half weeks ago Repeat viral respiratory panel here negative Initial COVID-19 test sent "test not performed" due to insufficient quantity- repeat test was sent off on 02/10 Improving overall-no further tachycardia, hypotension resolved, lactate decreased slightly, no further fevers, hypoxia resolved, leukocytosis improved Growing Enterococcus raffinosus and Alpha strep not enterococcus in urine- sensitivities noted, BCxs NGTD Repeat CXR confirms Left sided PNA -continue airborne precautions-ruling out COVID-19 -Continue Zosyn for urine as well as pneumonia and vancomycin for pneumonia given positive MRSA swab. Will switch to Augmentin and doxycycline on discharge -Follow CBC, CMP -Blood cultures negative to date (2) Pneumonia: With left lower lobe infiltrate on chest x-ray reconfirmed after hydration on CXR 02/08 He was profoundly dehydrated on admission PCT mildly elevated at 0.68 and then decreased to 0.35 -He has from a healthcare facility and has a history of MRSA as well as aspiration pneumonia -Received cefepime, vancomycin, and levofloxacin in the ER x1 dose each -MRSA nasal swab positive-continue vancomycin -continue IV Zosyn to cover for gram-negative pneumonia and anaerobes in the case of aspiration, as well as for enterococcus in urine as above -Have since discontinued levofloxacin - CRP, ferritin and D-dimer all elevated - LDH normal -Checking [id number] to send out a new sample on 02/10 -continue Supplemental O2 as needed to keep pulse ox greater than 92%-is now weaned off -Started steroids for worsening wheezing and rhonchi on 02/10, no further wheezing today therefore will start tapering prednisone dose -Continue duo nebs -Continue budesonide nebulized (3) Acute and chronic respiratory failure: Chronically on 2 L nasal cannula at nighttime Currently at baseline. Secondary to COPD exacerbation and PNA as above O2 sats aim > 88% (4) Acute hypernatremia: Corrected sodium for hyperglycemia is 167 on admission Free water deficit was 6.7 L on admission Was given 2 L of normal saline in the ER and then several days of half-normal saline at 150 mL's per hour -Na+ now down to 146 -DC IV fluids -Continue tube feeds with free water flushes -Follow BMP (5) Acute dehydration: Secondary to febrile illness, PEG tube dependence, and severe hyperglycemia Much improved with IV fluids (6) Type 2 diabetes mellitus with hyperglycemia: With HHS, now resolved, Acute metabolic encephalopathy (currently at baseline) Glucose in the mid 500s on admission with profound dehydration as above Weaned off Insulin drip, on basal and bolus insulin as per Pharmacy management HbA1c 8.7% Holding home metformin (7) BEBE (acute kidney injury): With creatinine of 1.8 on admission and now normal after hydration -Follow BMP Secondary to hyperglycemia and dehydration (8) Epilepsy: No obvious seizures -Continue home Tegretol and Keppra Monitor (9) GERD (gastroesophageal reflux disease): Continue PPI through PEG tube (10) History of CVA (cerebrovascular accident): With a history of right-sided hemiparesis and significant aphasia, with PEG tube and total care -Continue on Xarelto, aspirin, statin -Frequent turning and total care (11) COPD (chronic obstructive pulmonary disease): With chronic O2 at bedtime With rhonchi and wheezing here intermittently but now weaned off oxygen during the day -Previously avoiding steroids in case of COVID-19 infection, however with worsening respiratory status on 02/10-started IV Solu-Medrol 60 mg IV every 12 -Continue DuoNebs and budesonide nebs twice daily (12) HLD (hyperlipidemia): Continue statin (13) PVD (peripheral vascular disease): Continue aspirin, statin (14) CKD (chronic kidney disease): Baseline creatinine 0.6 With acute kidney injury as above now resolved -Avoid nephrotoxins -renally dose meds when appropriate -follow BMP (15) Elevated troponin: Troponin elevated at 0.18 on admission, likely secondary to demand ischemia from sepsis and profound dehydration -Trend serial troponin--> went back down to 0.12 ECG without ischemic changes Impossible to tell if he is symptomatic He would be a very poor candidate for intervention and this would likely be against his sister's wishes to avoid aggressive intervention -no echocardiogram necessary (16) 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 Continued stay until COVID-19 is negative as he is to return to a retirement DNR/DNI Admission and Anticipated Discharge Date Admission Date: February 08, 2020 Subjective Patient is awake and mumbles but does not answer questions. Unable to get any history from patient. Discussed with nursing staff at [facility] who report this is at his baseline. Review of Systems Review of Systems: Unobtainable due to cognitive status Physical Exam Constitutional: + thin and + frail appearing; + not well nourished and no acute distress Eyes: + anicteric sclerae; normal pupil size ENMT: Mouth: + oral mucosal abnormality (Dry mucous membranes) Neck: trachea midline Respiratory: no labored breathing Auscultation: + rhonchi (few scattered); no wheezes Cardiovascular: Rate/Rhythm: regular rate and regular rhythm Heart Sounds: no murmur Extremities: no edema Gastrointestinal (Abdomen): Inspection/Auscultation: normal bowel sounds; + abdomen abnormal to inspection (PEG tube in place) and abdomen not distended Percussion/Palpation: abdomen soft; abdomen nontender Musculoskeletal: Extremities: + extremities abnormal to inspection (generalized muscle wasting), no cyanosis and no clubbing Skin: no rashes, warm and dry Neurologic: awake Speech / Cognition: + expressive aphasia Psychiatric: Orientation: alert; + not oriented x 3 Genitourinary: + penis abnormality (Grace catheter in place) Results & Data Results & Data ([facility]) Vital Signs (Past 12 Hours) Vital Signs Temp Pulse Pulse Resp BP Pulse Ox 02/12/20 13:20 103 H 21 90 02/12/20 09:00 37.1 C 83 20 134/73 94 02/12/20 07:33 91 H 19 91 PG Care Time/CCT Total # of Minutes Spent Total Time Spent with Patient: Total time spent is greater than 50% in coordination of care (as documented) at patient's floor/unit and/or counseling patient: Coding Level of Care Code 38981 Subseq Hosp Care Lvl 2 Diagnoses Sepsis A41.9 Sepsis acute organ dysfunction status: unspecified Sepsis type: sepsis due to unspecified organism Pneumonia J18.9 Laterality: unspecified laterality Lung location: unspecified part of lung Pneumonia type: due to unspecified organism Acute and chronic respiratory failure J96.20 Acute hypernatremia E87.0 Acute dehydration E86.0 Type 2 diabetes mellitus with hyperglycemia E11.65 BEBE (acute kidney injury) N17.9 Epilepsy G40.909 Epilepsy type: unspecified Intractability: not intractable Status epilepticus: without status epilepticus GERD (gastroesophageal reflux disease) K21.9 Esophagitis presence: esophagitis presence not specified History of CVA (cerebrovascular accident) Z86.73 COPD (chronic obstructive pulmonary disease) J44.9 COPD type: unspecified COPD HLD (hyperlipidemia) E78.5 Hyperlipidemia type: unspecified PVD (peripheral vascular disease) I73.9 CKD (chronic kidney disease) N18.9 Chronic kidney disease stage: unspecified stage Elevated troponin R79.89 History of venous thrombosis and embolism Z86.718 Hypokalemia E87.6 DVT prophylaxis Z29.9 (1) Epilepsy Epilepsy type: unspecified Intractability: not intractable Status epilepticus: without status epilepticus Qualified Code(s): G40.909 - Epilepsy, unspecified, not intractable, without status epilepticus (2) HLD (hyperlipidemia) Hyperlipidemia type: unspecified Qualified Code(s): E78.5 - Hyperlipidemia, unspecified (3) CKD (chronic kidney disease) Chronic kidney disease stage: unspecified stage Qualified Code(s): N18.9 - Chronic kidney disease, unspecified (4) Sepsis Sepsis acute organ dysfunction status: unspecified Sepsis type: sepsis due to unspecified organism Qualified Code(s): A41.9 - Sepsis, unspecified organism (5) COPD (chronic obstructive pulmonary disease) COPD type: unspecified COPD Qualified Code(s): J44.9 - Chronic obstructive pulmonary disease, unspecified (6) GERD (gastroesophageal reflux disease) Esophagitis presence: esophagitis presence not specified Qualified Code(s): K21.9 - Gastro-esophageal reflux disease without esophagitis (7) Pneumonia Laterality: unspecified laterality Lung location: unspecified part of lung Pneumonia type: due to unspecified organism Qualified Code(s): J18.9 - Pneumonia, unspecified organism
[2020-02-12] MEDS: RIVAROXABAN 20 MG TAB PO SCH (16:13)
[2020-02-12] MEDS: ATORVASTATIN 20 MG TAB GT SCH (20:45)
[2020-02-13] MEDS ORDERED: VANCOMYCIN HCL 1,250 MG in SODIUM CHLORIDE 0.9% 250 ML IV SCH
[2020-02-13] MEDS: PIPERACILLIN/TAZOBACTAM 3.375 GM in DEXTROSE 5% 100 ML IV SCH (00:22)
[2020-02-13] MEDS: INSULIN ASPART 100 UNITS/ML 3 ML PEN SC SCH ×6 (00:22→16:38)
[2020-02-13] MEDS: TUBE FEEDING WATER FLUSH GT SCH ×5 (00:24→16:14)
[2020-02-13] MEDS: ALBUT/IPRATROP 3MG/0.5MG NEB 3 ML VIAL INH SCH ×3 (00:38→13:15)
[2020-02-13] MEDS: methylPREDNISolone 60 MG in SYRINGE 0 ML IV SCH (04:57)
[2020-02-13 06:50] LABS: Basophils # (auto) 0.01 K/uL (0-0.2); Basophils % (auto) 0.1 %; Eosinophils # (auto) 0.23 K/uL (0-0.5); Eosinophils % (auto) 2.2 %; Hematocrit (blood only) 38.7 % (42-52); Hemoglobin 12.4 g/dL (14.0-18.0); Immature Granulocytes # (auto) 0.03 K/uL (0.00-0.02); Immature Granulocytes % (auto) 0.3 %; Lymphocytes # (auto) 0.82 K/uL (1.2-3.4); Lymphocytes % (auto) 7.8 %; Mean Corpuscular Hemoglobin 31.8 pg (25-34); Mean Corpuscular Volume 99.2 fL (80-100); Mean Platelet Volume 12.8 fL (7.4-10.4); Monocytes # (auto) 0.39 K/uL (0.11-0.59); Monocytes % (auto) 3.7 %; Neutrophils # (auto) 8.97 K/uL (1.4-6.5); Neutrophils % (auto) 85.9 %; Platelet Count 163 K/uL (130-400); RDW Coefficient of Variation 13.8 % (11.5-14.5); RDW Standard Deviation 49.5 fL (36.4-46.3); White Blood Count 10.45 K/uL (4.8-10.8)
[2020-02-13] MEDS: BUDESONIDE 0.5 MG/2 ML VIAL (PULMICORT) INH SCH (07:00)
[2020-02-13 07:24] LABS: BUN Creatinine Ratio 19.4 (10-20); Calcium 8.8 mg/dl (8.5-10.1); Creatinine Clr Calc Pharmacy 112.4 ml/min; Est GFR (African American) 112.7; Est GFR (Non-African American) 97.3
[2020-02-13] MEDS ORDERED: POTASSIUM CHLORIDE 20 MEQ/15 ML UDC GT STA (07:45)
[2020-02-13] MEDS ORDERED: DOXYCYCLINE SUSP 25 MG/5 ML 60ML GT SCH (09:00)
[2020-02-13] MEDS ORDERED: AMOXICILLIN/CLAVULANATE SUSP 400 MG/5 ML UDP GT SCH ×2 (09:00→20:00)
[2020-02-13] MEDS: levETIRAcetam ORAL SOLN 100MG/ML PO SCH ×2 (09:34→16:00)
[2020-02-13] MEDS: PROSOURCE NO CARB 30 ML/PKT PEG SCH ×2 (09:35→12:45)
[2020-02-13] MEDS: guaiFENesin SUGAR FREE 200 MG/10 ML UDC PO SCH ×3 (09:35→16:01)
[2020-02-13] MEDS: SACCHAROMYCES BOULARDII 250 MG CAP PO SCH ×2 (09:36→12:45)
[2020-02-13] MEDS: CARBAMAZEPINE 100 MG CHEW TAB PO SCH ×2 (09:37→16:01)
[2020-02-13] MEDS: CITALOPRAM 40 MG TAB GT SCH (09:38)
[2020-02-13] MEDS: LANSOPRAZOLE 30 MG SOLTAB GT SCH (09:38)
[2020-02-13] MEDS: AMMONIUM LACTATE 12% LOTION 225 GM BTL EXT SCH (09:39)
[2020-02-13] MEDS: INSULIN GLARGINE SOLOSTAR 100 UNITS/ML 3 ML PEN SC SCH ×2 (09:40→16:14)
[2020-02-13] MEDS: TRAZODONE HCL 50 MG TAB GT SCH (09:53)
[2020-02-13] MEDS: ASPIRIN 81 MG CHEW GT SCH (09:53)
[2020-02-13] MEDS: PEPTAMEN 1.5 CAL 1,000 ML BAG PEG SCH (12:45)
--- NOTE | 2020-02-13 14:03 | Pharmacy Report ---
Pharmacy Glycemic Short Note 2 - Date of Service February 13, 2020 - Glycemic Short BSG Results (Last 24 hours): 02/12/20 02/12/20 02/13/20 15:54 20:09 00:04 Glucose POC Glucose 166 H 111 H 190 H 02/13/20 02/13/20 02/13/20 04:44 06:21 07:42 Glucose 258 H POC Glucose 293 H 251 H 02/13/20 02/13/20 11:37 11:39 Glucose POC Glucose 330 H* 306 H* OUTPATIENT ANTIDIABETIC REGIMEN: * Per med rec: * Lantus 20-25 units BID * Humalog 20 units daily prn * A1c = 8.7% 02/09/20 ASSESSMENT: 02/12: Patient received a toal of 120 units of insulin yesterday, 40 units of basal +80 of bolus BSGs trended up overnight into today, lunch BSG 306, tube feeds are continuing at goal rate of 40 ml/hr providing 29 gm cho Tightened carb ratio to 1 units/ 2.5 gm CHO. Patient received dose of methylprednisolone this morning, but will start a steroid taper tomorrow Anticipate improvement with steroid reduction, therefore will not escalate lantus dose further today 02/11: * Patient received a total of 103 units of insulin yesterday, 45 basal + 58 bolus * BSG this AM was ----- mg/dL - improved/worsened from yesterday * Continues on continuous tube feeds at goal rate of 40 mL/hr; tightened CF/CR further today * Will increase basal insulin as well to account for steroid induced hyperglycemia 02/10: * Patient received total of 83 units of insulin yesterday, of which 35 were basal insulin * BSG this AM 169 mg/dL - improvement since yesterday * Continues on continuous tube feedings at goal rate - 40 ml/hr ; will tighten CF/CR more this AM to help with improvement of BSGs 02/09: * BSGs stable over last 12 hours - one above 200 at midnight. Insulin gtt rate stable this morning * Na continuing to improve more this AM / serum osmolality improving as well closer to range * Ordered Lantus 15 units this am - same basal dose as yesterday AM ; plan to d/c insulin drip * Will order Q4 hr checks - add Lantus scale for tonight 02/08: * Patient admitted with HHS on IV insulin infusion * Hyperglycemia had initially improved on IV insulin infusion. BSGs decreased into the mid to high 200s last evening. BSGs then started to trend back upward to the 300-400 mg/dL range. I suspect this was due to resumption of continuous fibersource tube feeds. Tube feeds were held this morning. Improvement in glycemic control noted after this change. * Conservatively dosed basal insulin has been overlapped with IV infusion. Lantus 15 units SQ was ordered for this morning (tube feeds on hold at this time - pt NPO). This will be increased for PM dose. Patient required 25 units BID on previous admission. * Tube feeds resumed as of 1400 today. Peptamen started at low infusion rate of 10 ml/hr (delivers 8 grams CHO over 4 hours). * Estimated serum osmolality to be ~343 mOsm/kg based on 1215 labs. Will continue IV insulin infusion until normal serum osmolality achieved. PLAN FOR INPATIENT GLYCEMIC CONTROL: * Basal insulin - BID (increased) * Lantus 25 units for BSG 180 mg/dL or less * Lantus 30 units for BSG greater than 180 mg/dL * Bolus insulin - novolog Q4 hr checks * Goal 110-140 * Tightened: CF 10 CR 2.5 DISCHARGE RECOMMENDATIONS: * pending at this time
[2020-02-13 15:38] VITALS: BP 123/80; TEMP 98.2; O2SAT 98
--- NOTE | 2020-02-13 15:52 | Discharge Summary ---
Date of Service February 13, 2020 Admission HPI Per Admitting Provider This patient is a 64-year-old male with a history of CVA with hemiparesis, aphasia, COPD with chronic respiratory failure with hypoxia, DVT/PE on Xarelto, HTN, seizure disorder, aspiration pneumonia, PEG tube, DM 2, who [facility] with [facility]. He presents after having a fever for the last 24 hours with worsening hyperglycemia and lethargy. The patient is completely nonverbal and unable to provide any history on admission. [facility] from the jail were reviewed. He was started on Levaquin for suspected aspiration pneumonia based on a chest x-ray obtained as an outpatient yesterday. He was treated with increased doses of insulin for his hyperglycemia. However, laboratories drawn yesterday were reported today with severe hyperglycemia, renal failure. And given ongoing fevers, tachycardia, and worsening hypoxia, the patient was sent to the ER for further evaluation. He has no known exposure to COVID-19 and had a negative COVID-19 test on 01/21, however at that time he was positive for human metapneumovirus. In the ER, he was found to have significant hyperglycemia here with lactic acidosis, sepsis, and a left lower lobe pneumonia. He was also found to be hypoxic requiring 5-6 L via oxygen mask and profoundly hypernatremic due to severe dehydration. He was febrile, tachycardic, and hypotensive which improved with bolused IV fluids He was given IV fluids, IV cefepime, levofloxacin, and vancomycin in the ER for broad-spectrum coverage. He was also started on insulin drip for blood sugar in the 500s. I discussed his case with his healthcare power of manager of financial and sister, Trudy, on the phone. She confirmed that he is a DNR/DNI, but she is okay with continued IV antibiotics, IV fluids, and artificial nutrition through his PEG tube. Principal Diagnosis Sepsis Pneumonia (suspected aspiration) COPD exacerbation Acute kidney injury Hypernatremia Discharge Exam Constitutional + frail appearing; + not well nourished and no acute distress ENMT Mouth: + oral mucosal abnormality (Dry mucous membranes) Neck trachea midline Respiratory no respiratory distress, no labored breathing and does not use accessory muscles Auscultation: + rhonchi (few scattered); no wheezes Cardiovascular Rate/Rhythm: regular rate and regular rhythm Heart Sounds: no murmur Extremities: normal capillary refill; no edema Gastrointestinal (Abdomen) Inspection/Auscultation: normal bowel sounds; + abdomen abnormal to inspection (PEG tube in place) and abdomen not distended Percussion/Palpation: abdomen soft; abdomen nontender Musculoskeletal Extremities: + extremities abnormal to inspection (generalized muscle wasting), no cyanosis and no clubbing Skin no rashes, warm and dry Neurologic awake Speech / Cognition: + expressive aphasia Psychiatric Orientation: alert; + not oriented x 3 Discharge Data Allergies Allergy/AdvReac Type Severity Reaction Status Date / Time bee venom protein (honey bee) Allergy Unknown LISTED ON Verified 02/08/20 15:27 MAR pseudoephedrine Allergy Unknown UNKNOWN Verified 02/08/20 15:27 Consultations 02/08/20 15:25 ED Decision to Admit Stat 02/08/20 18:37 Consult Case Management - Discharge Planning Routine Hospital Course (1) Sepsis: Mr Bergman is a 64 year old male admitted to [facility] from February 07 to due to fever with worsening lethargy. He was diagnosed with sepsis with left lower lobe pneumonia. He responded to treatment with intravenous antibiotics which have now been converted to Augmentin and doxycycline on day of discharge to cover for both aspiration pneumonia and MRSA (given positive nasal swab for this). COVID-19 and Biofire viral panel were negative. He was started on steroids on due to worsening respiratory status and wheezing which he responded to well and he has now been weaned off oxygen. He has been having hyperglycemic episodes while admitted due to steroids given. Recommend he is treated with his usual correction factor at [facility] on discharge. For comparison he has required a total of 120 units of insulin the day prior to discharge. This was however on 120 mg of Solu-medrol and he will be discharged on 40mg of prednisone with a tapering course. (2) Pneumonia: (3) Acute and chronic respiratory failure: (4) Acute hypernatremia: (5) Acute dehydration: (6) Type 2 diabetes mellitus with hyperglycemia: (7) BEBE (acute kidney injury): (8) Epilepsy: (9) GERD (gastroesophageal reflux disease): (10) History of CVA (cerebrovascular accident): (11) COPD (chronic obstructive pulmonary disease): (12) HLD (hyperlipidemia): (13) PVD (peripheral vascular disease): (14) CKD (chronic kidney disease): (15) Elevated troponin: (16) History of venous thrombosis and embolism: (17) Hypokalemia: Total Time Total Time Spent Total Time Spent (In Minutes): 35 Total Time Includes: Examination of the Patient, Discharge Planning and Medication Reconciliation Discharge Plan Discharge Items Patient Disposition: Trans Resident Long-Term Care Reason For Visit: Respiratory distress, hypoxia, fever Discharge Diagnosis: Sepsis Pneumonia (suspected aspiration) COPD exacerbation Acute kidney injury Hypernatremia Activity: Resume your previous activity Non-emergency contact: Primary Care Provider Call non-emergency contact if: you have any medication questions and your symptoms worsen Follow-up/Referrals: [facility] [Primary Care Provider] - Diet: Other - See Diet Comment Diet Comment: NG feeds Addtl Attending Provider Instructions: Mr Bergman is a 64 year old male admitted to [facility] from February 07 to due to fever with worsening lethargy. He was diagnosed with sepsis with left lower lobe pneumonia. He responded to treatment with intravenous antibiotics which have now been converted to Augmentin and doxycycline on day of discharge to cover for both aspiration pneumonia and MRSA (given positive nasal swab for this). COVID-19 and Biofire viral panel were negative. He was started on steroids on due to worsening respiratory status and wheezing which he responded to well and he has now been weaned off oxygen. He has been having hyperglycemic episodes while admitted due to steroids given. Recommend he is treated with his usual correction factor at [facility] on discharge. For comparison he has required a total of 120 units of insulin the day prior to discharge. This was however on 120 mg of Solu-medrol and he will be discharged on 40mg of prednisone with a tapering course. Kind regards, Dr Frankie Burrows Pending Studies at Discharge: No Stand-Alone Forms: My [facility] Skilled Items Patient informed of condition?: Yes DNR: Yes Discharge Level of Care: Skilled Communicable Disease: No Discharge Prognosis: Stable Lines: None Urinary Catheter: No Medications and DC Order Prescriptions: New doxycycline monohydrate 25 mg/5 mL Suspension For Reconstitution 100 mg G-tube BID 5 Days Qty: 200 RF: 0 prednisone 20 mg Tablet See Rx Instructions .ROUTE .COMPLEX Qty: 5 RF: 0 amoxicillin-pot clavulanate 400-57 mg/5 mL Suspension For Reconstitution 5 ml G-tube BID@0800,2000 5 Days Qty: 50 RF: 0 Continued atorvastatin [Lipitor] 20 mg Tablet 20 mg Feeding Tube HS RF: 0 ipratropium-albuterol 0.5 mg-3 mg(2.5 mg base)/3 mL Solution For Nebulization 3 ml INHALATION Q6H RF: 0 citalopram [Celexa] 40 mg Tablet 40 mg Feeding Tube DAILY RF: 0 trazodone 50 mg Tablet 50 mg Feeding Tube BID RF: 0 guaifenesin [Ri-Tussin] 100 mg/5 mL Liquid 10 ml Feeding Tube Q6H RF: 0 metformin [Glucophage] 1,000 mg Tablet 1,000 mg Feeding Tube BIDM RF: 0 budesonide [Pulmicort] 0.5 mg/2 mL Suspension For Nebulization 0.5 mg INHALATION TID RF: 0 carbamazepine [Tegretol] 100 mg/5 mL Suspension 100 mg Feeding Tube HS RF: 0 levetiracetam [Keppra] 100 mg/mL Solution 10 ml Feeding Tube BID RF: 0 carbamazepine 200 mg/10 mL Suspension 400 mg Feeding Tube BID RF: 0 Xarelto 20 mg Tablet 20 mg G-Tube DAILY RF: 0 ammonium lactate [Ivette-Hydrolac] 12 % Cream 1 applic TOPICAL BID RF: 0 acetaminophen 650 mg/20.3 mL Solution 650 mg feeding tube Q6H PRN (Reason: Pain or Fever < 101) RF: 0 Lantus Solostar U-100 Insulin 100 unit/mL (3 mL) insulin pen 0 unit SUBCUT BID RF: 0 100 Ml Free Water Flush 100 ml feeding tube Q4H RF: 0 docusate sodium 50 mg/5 mL Liquid 100 mg PO Q3D RF: 0 Lantus U-100 Insulin 100 unit/mL Solution 0 unit SUBCUT BID RF: 0 magnesium hydroxide [Milk of Magnesia] 400 mg/5 mL Suspension 30 ml feeding tube UD PRN (Reason: Constipation) RF: 0 bisacodyl [Dulcolax (bisacodyl)] 10 mg Suppository 10 mg NE UD PRN (Reason: Constipation) RF: 0 Enema 19-7 gram/118 mL Enema 118 ml NE UD PRN (Reason: Constipation) RF: 0 Glucagon Emergency Kit (human) 1 mg Recon Soln 1 mg IM UD PRN (Reason: Blood surgar < 60mg/dl) RF: 0 omeprazole 20 mg Capsule,Delayed Release(Dr/Ec) 20 mg feeding tube DAILY RF: 0 aspirin 81 mg Tablet,Chewable 81 mg feeding tube DAILY RF: 0 insulin lispro [Humalog U-100 Insulin] 100 unit/mL Solution 20 unit SUBCUT DAILY PRN (Reason: Elevated blood sugar 534) RF: 0 simethicone [Gas Relief (simethicone)] 80 mg Tablet,Chewable 80 mg PO Q6H PRN (Reason: Gas) RF: 0 Stress Formula Tablet 1 tab feeding tube DAILY RF: 0 Florastor 250 mg Capsule 250 mg feeding tube TID RF: 0 Barrier Cream 1 applic topical UD RF: 0 Discontinued levofloxacin [Levaquin] 500 mg Tablet 500 mg PO DAILY RF: 0 Discharge Orders: Discharge Order (Routine); Ordered 02/13/20 Ordered By: Frankie Burrows Admission Data Admit Date/Time: 02/08/20 16:57 Attending Provider: Frankie Burrows Admit Provider[facility] Other Providers: Mili Post ; Heidi Neal Other Interventions: Discharge Summary Assessment (RN) Last Done: 02/13/20 16:41 DC Date/Time DO NOT enter until pt leaves facility: 02/13/20 14:55 Coding Level of Care Code D/C Day Management >30 mins Diagnoses Sepsis A41.9 Sepsis acute organ dysfunction status: unspecified Sepsis type: sepsis due to unspecified organism Pneumonia J18.9 Laterality: unspecified laterality Lung location: unspecified part of lung Pneumonia type: due to unspecified organism Acute and chronic respiratory failure J96.20 Acute hypernatremia E87.0 Acute dehydration E86.0 Type 2 diabetes mellitus with hyperglycemia E11.65 BEBE (acute kidney injury) N17.9 Epilepsy G40.909 Epilepsy type: unspecified Intractability: not intractable Status epilepticus: without status epilepticus GERD (gastroesophageal reflux disease) K21.9 Esophagitis presence: esophagitis presence not specified History of CVA (cerebrovascular accident) Z86.73 COPD (chronic obstructive pulmonary disease) J44.9 COPD type: unspecified COPD HLD (hyperlipidemia) E78.5 Hyperlipidemia type: unspecified PVD (peripheral vascular disease) I73.9 CKD (chronic kidney disease) N18.9 Chronic kidney disease stage: unspecified stage Elevated troponin R79.89 History of venous thrombosis and embolism Z86.718 Hypokalemia E87.6
[2020-02-13] MEDS: RIVAROXABAN 20 MG TAB PO SCH (16:01)
[2020-02-13 16:43] VITALS: PULSE 87
[2020-02-13] MEDS ORDERED: AMMONIUM LACTATE 12% LOTION 225 GM BTL EXT SCH (20:00)
[2020-02-14] MEDS ORDERED: predniSONE 20 MG TAB GT SCH ×2 (08:00→09:00)
[2020-02-14] MEDS ORDERED: VANCOMYCIN TROUGH ONE (11:30)
== END 2020-02-13 14:55 | DRG 871 ==
LOC: ED 13:58 → 1E 16:57 → SUATTDRO 16:57 → 1E 17:52 → 2S 22:58 → 2N 02-11 15:19

== ENCOUNTER 2020-02-25 17:48 | Inpatient (IN) ==
[2020-02-25] MEDS ORDERED: SODIUM CHLORIDE 0.9% 1000ML 1,000 ML IV SCH (18:00)
[2020-02-25] MEDS ORDERED: VANCOMYCIN HCL 2,000 MG in SODIUM CHLORIDE 0.9% 500 ML IV ONE (18:12)
[2020-02-25] MEDS ORDERED: LEVOFLOXACIN/D5W 500 MG/100 ML BAG IV STA (18:12)
[2020-02-25] MEDS ORDERED: VANCOMYCIN CONSULT ACTIVE PRN ×2 (18:12→23:29)
[2020-02-25] MEDS ORDERED: CEFEPIME 2,000 MG/20 ML VIAL IV STA (18:12)
--- NOTE | 2020-02-25 18:21 | Emergency Department Note ---
History of Present Illness General Chief complaint: Lethargic Time Seen by Provider: 02/25/20 17:55 Source: EMS Mode of arrival: EMS Limitations: language barrier, altered mental status and physical limitation History of Present Illness Provider complaint: Altered mental status Onset (ago): hour(s) 4 The patient presents from the local [facility] for evaluation of altered mental status. The patient is unable to provide any history. History was provided by EMS. They state that the patient is less responsive than his baseline. He is noted to have a fever here. He is also tachycardic and tachypneic. The patient has history of a aphasia and stroke. He is a DNR/DNI. No additional i nformation is available at this time. The patient was discharged from the hospital less than 2 weeks ago and was here for aspiration pneumonia and sepsis. He was discharged on oral antibiotics. He did not have oxygen requirement on discharge. The patient does require oxygen to get his saturations above 88% here. Home Medications Home Medications Medication Instructions Recorded Confirmed Type Xarelto 20 mg G-TUBE DAILY 11/01/18 02/25/20 History atorvastatin [Lipitor] 20 mg FEEDING TUBE HS 11/01/18 02/25/20 History budesonide [Pulmicort] 0.5 mg INHALATION TID 11/01/18 02/25/20 History carbamazepine 400 mg FEEDING TUBE BID 11/01/18 02/25/20 History carbamazepine [Tegretol] 100 mg FEEDING TUBE HS 11/01/18 02/25/20 History citalopram [Celexa] 40 mg FEEDING TUBE DAILY 11/01/18 02/25/20 History guaifenesin [Ri-Tussin] 10 ml FEEDING TUBE Q6H PRN 11/01/18 02/25/20 History ipratropium-albuterol 3 ml INHALATION Q6H 11/01/18 02/25/20 History levetiracetam [Keppra] 10 ml FEEDING TUBE BID 11/01/18 02/25/20 History metformin [Glucophage] 1,000 mg FEEDING TUBE BIDM 11/01/18 02/25/20 History trazodone 50 mg FEEDING TUBE BID 11/01/18 02/25/20 History acetaminophen 650 mg FEEDING TUBE Q6H PRN 10/04/19 02/25/20 History ammonium lactate [Ivette-Hydrolac] 1 applic TOPICAL BID 10/04/19 02/25/20 History 100 Ml Free Water Flush 100 ml FEEDING TUBE Q4H 02/08/20 02/25/20 History Enema 118 ml MA UD PRN 02/08/20 02/25/20 History Florastor 250 mg FEEDING TUBE TID 02/08/20 02/25/20 History Lantus U-100 Insulin 35 unit SUBCUT BID 02/08/20 02/25/20 History Stress Formula 1 tab FEEDING TUBE DAILY 02/08/20 02/25/20 History aspirin 81 mg FEEDING TUBE DAILY 02/08/20 02/25/20 History bisacodyl [Dulcolax (bisacodyl)] 10 mg MA UD PRN 02/08/20 02/25/20 History docusate sodium 100 mg PO Q3D 02/08/20 02/25/20 History magnesium hydroxide [Milk of 30 ml FEEDING TUBE UD PRN 02/08/20 02/25/20 History Magnesia] omeprazole 20 mg FEEDING TUBE DAILY 02/08/20 02/25/20 History simethicone [Gas Relief 80 mg PO Q6H PRN 02/08/20 02/25/20 History (simethicone)] Liquid Protein Supp 1 dose G-TUBE BID 02/25/20 02/25/20 History insulin lispro [Humalog U-100 8 unit SUBCUT .TODAY 02/25/20 02/25/20 History Insulin] miconazole nitrate [Anti-Fungal] 1 applic TOPICAL BID 02/25/20 02/25/20 History nutritional supplements [Osmolite 0 ea FEEDING TUBE .HOLD UNTIL 02/25/20 02/25/20 History 1.5 Aron] 02/26/20 Allergies Allergy/AdvReac Type Severity Reaction Status Date / Time bee venom protein (honey bee) Allergy Unknown LISTED ON Verified 02/25/20 19:45 MAR pseudoephedrine Allergy Unknown UNKNOWN Verified 02/25/20 19:45 Past Med/Surg History Medical History Aphasia Asthma Chronic respiratory failure with hypoxia CKD (chronic kidney disease) (Chronic) stage 2 Conversion disorder with seizures or convulsions COPD (chronic obstructive pulmonary disease) (Acute) Diabetes (Chronic) type 2 Difficulty in walking DVT (deep venous thrombosis) Dysphasia as late effect of cerebrovascular accident (CVA) (Chronic) Epilepsy (Chronic) Epilepsy with status epilepticus Gastrostomy infection Generalized muscle weakness GERD (gastroesophageal reflux disease) GERD (gastroesophageal reflux disease) 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 History of CVA (cerebrovascular accident) (Acute) 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 History of venous thrombosis and embolism HLD (hyperlipidemia) (Chronic) Hypertension Hypertension Pneumonia (Acute) Pressure ulcer of right buttock, stage 2 PVD (peripheral vascular disease) Tinea unguium Unspecified mood [affective] disorder Surgical History Status post insertion of percutaneous endoscopic gastrostomy (PEG) tube Surgical history unknown Family History Other Family history non-contributory Social History Preferred Language: Irish Communication Ability: Impaired 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 current occupational status: disabled Feels Safe at Home: Yes Smoking Status: Unknown if ever smoked Hx Alcohol Use: No Hx Substance Use: No Review of Systems Unobtainable due to cognitive status Physical Exam Vital Signs Vital Signs - 24 hr 02/25/20 17:51 02/25/20 17:57 02/25/20 18:50 Temperature 38.1 C H Temperature Source Oral Pulse Rate 123 H Pulse Rate [Right Finger] 118 H Pulse Rate from SpO2 Sensor 123 H Respiratory Rate 32 H 20 Respiratory Effort / Characteristics Spontaneous Blood Pressure 126/85 126/85 Blood Pressure Mean 107 98 Blood Pressure Position Lying Pulse Oximetry 97 97 97 Oxygen Delivery Method Non-rebreather Non-rebreather Oxygen Flow Rate 10 10 Sepsis Recent Fever Within 48 Hours Yes Sepsis New/Unexplained Change in Mental Status Yes Sepsis Action Taken by Nursing No Action Required CONSTITUTIONAL/VITAL SIGNS: Reviewed / noted above. GENERAL: Chronically ill and bedbound appearing INTEGUMENTARY: Warm, dry, and [place]. HEAD: Normocephalic. EYES: without scleral icterus or trauma. ENT/OROPHARYNX: clear and moist. LYMPHADENOPATHY/NECK: Is supple without lymphadenopathy or meningismus. RESPIRATORY: Lungs diminished and equal. CARDIOVASCULAR: Tachycardic rate and regular rhythm. GI/ABDOMEN: Soft and nontender. No organomegaly or pulsatile mass. No rebound or guarding. Normal bowel sounds. Feeding tube in place. EXTREMITIES: The patient moves his left arm slightly. His right arm seems somewhat contracted in the legs do not seem to move much at all.. NEUROLOGICAL: The patient is reportedly nonverbal by baseline. He does have his eyes open. He was seen to move his left arm slightly. MUSCULOSKELETAL: Chronically ill-appearing with little to no muscle tone. TRIAGE NURSING DOCUMENTATION REVIEWED. Course Administered Medications Discontinued Medications Albuterol (Duoneb) 3 ml NEB NOW STA Stop: 02/25/20 18:25 Last Admin: 02/25/20 18:50 Dose: 3 ml Documented by: [id number] Sodium Chloride (Nss 1000ml) 1,000 mls @ 999 mls/hr IV .Q1H1M BARBARA Stop: 02/25/20 19:00 Last Infusion: 02/25/20 19:07 Dose: 0 mls/hr Documented by: [id number] Admin: 02/25/20 18:00 Dose: 999 mls/hr Documented by: [id number] Cefepime HCl (Maxipime) 2,000 mg in 20 mls @ 5 mls/min IV NOW STA; Protocol Stop: 02/25/20 18:15 Last Admin: 02/25/20 19:39 Dose: 5 mls/min Documented by: [id number] Medical Decision Making Differential Diagnosis Differential includes acute coronary syndrome, myocardial infarction, CVA, TIA, anemia, infection, pneumonia, UTI, pyelonephritis, poor nutrition, dehydration, electrolyte disturbance,hypoglycemia. Medical Records Attestation: I reviewed the patient's medical records. Home Medications Current Medication List: was personally reviewed by me Laboratory Data Attestation: I reviewed the patient's lab results. Result diagrams: 02/25/20 18:20 02/25/20 18:20 Lab Results 02/25/20 02/25/20 02/25/20 Range/Units 18:20 18:20 18:20 WBC 13.25 H (4.8-10.8) K/uL RBC 4.80 (4.7-6.1) M/uL Hgb 15.5 (14.0-18.0) g/dL Hct 52.4 H (42-52) % MCV 109.2 H (80-100) fL MCH 32.3 (25-34) pg MCHC 29.6 L (32-36) g/dL Plt Count 241 (130-400) K/uL Immature Gran % (Auto) 0.2 % Neut % (Auto) 78.7 % Lymph % (Auto) 13.5 % [place] % (Auto) 6.9 % Eos % (Auto) 0.5 % Baso % (Auto) 0.2 % Immature Gran # (Auto) 0.03 H (0.00-0.02) K/uL Neut # (Auto) 10.42 H (1.4-6.5) K/uL Lymph # (Auto) 1.79 (1.2-3.4) K/uL [place] # (Auto) 0.91 H (0.11-0.59) K/uL Eos # (Auto) 0.07 (0-0.5) K/uL Baso # (Auto) 0.03 (0-0.2) K/uL Hypochromasia Present Macrocytosis Present PT 11.0 (9.0-12.0) Seconds INR 1.0 (0.9-1.1) Sodium 167 H* (136-145) mmol/L Potassium 4.1 (3.5-5.1) mmol/L Chloride 128 H (98-107) mmol/L Carbon Dioxide 33 H (21-32) mmol/L Anion Gap 5.0 (3-11) BUN 36 H (7-18) mg/dl Creatinine 1.13 (0.6-1.4) mg/dl Est Cr Clr Drug Dosing Not Reportable Est GFR ( Amer) 80.3 Est GFR (Non-Af Amer) 69.3 BUN/Creatinine Ratio 31.4 H (10-20) Glucose 330 H* (70-99) mg/dl Lactate (0.4-2.0) mmol/L Calcium 9.2 (8.5-10.1) mg/dl Magnesium 2.6 H (1.8-2.4) mg/dl Total Bilirubin 0.3 (0.2-1) mg/dl AST 13 L (15-37) U/L ALT 21 (12-78) U/L Alkaline Phosphatase 105 (45-117) U/L Total Creatine Kinase 297 (39-308) U/L Troponin I < 0.015 (0-0.045) ng/ml Total Protein 7.9 (6.4-8.2) gm/dl Albumin 2.6 L (3.4-5.0) gm/dl Globulin 5.3 H (2.5-4.0) gm/dl Albumin/Globulin Ratio 0.5 L (0.9-2) Beta-Hydroxybutyric Acd 1.33 (0.2-2.81) mg/dl TSH 0.934 (0.300-4.500) uIu/ml Urine Color Urine Appearance (Clear) Urine pH (4.5-7.5) Ur Specific [place] (1.000-1.030) Urine Protein (Negative) Urine Glucose (UA) (Negative) Urine Ketones (Negative) Urine Blood (Negative) Urine Nitrite (Negative) Urine Bilirubin (Negative) Urine Urobilinogen (Negative) Ur Leukocyte Esterase (Negative) Urine WBC (Auto) (0-5) /hpf Urine RBC (Auto) (0-4) /hpf U Hyaline Cast (Auto) (0-5) /lpf U Epithel Cells (Auto) (0-5) /lpf Urine Bacteria (Auto) (Negative) Ur Renal Epithelial Cell Granular Casts (0) /lpf Influenza Type A (PCR) (Neg) Influenza Type B (PCR) (Neg) SARS-CoV-2 RNA (RT-PCR) 02/25/20 02/25/20 02/25/20 Range/Units 18:44 18:44 18:48 WBC (4.8-10.8) K/uL RBC (4.7-6.1) M/uL Hgb (14.0-18.0) g/dL Hct (42-52) % MCV (80-100) fL MCH (25-34) pg MCHC (32-36) g/dL Plt Count (130-400) K/uL Immature Gran % (Auto) % Neut % (Auto) % Lymph % (Auto) % [place] % (Auto) % Eos % (Auto) % Baso % (Auto) % Immature Gran # (Auto) (0.00-0.02) K/uL Neut # (Auto) (1.4-6.5) K/uL Lymph # (Auto) (1.2-3.4) K/uL [place] # (Auto) (0.11-0.59) K/uL Eos # (Auto) (0-0.5) K/uL Baso # (Auto) (0-0.2) K/uL Hypochromasia Macrocytosis PT (9.0-12.0) Seconds INR (0.9-1.1) Sodium (136-145) mmol/L Potassium (3.5-5.1) mmol/L Chloride (98-107) mmol/L Carbon Dioxide (21-32) mmol/L Anion Gap (3-11) BUN (7-18) mg/dl Creatinine (0.6-1.4) mg/dl Est Cr Clr Drug Dosing Est GFR ( Amer) Est GFR (Non-Af Amer) BUN/Creatinine Ratio (10-20) Glucose (70-99) mg/dl Lactate (0.4-2.0) mmol/L Calcium (8.5-10.1) mg/dl Magnesium (1.8-2.4) mg/dl Total Bilirubin (0.2-1) mg/dl AST (15-37) U/L ALT (12-78) U/L Alkaline Phosphatase (45-117) U/L Total Creatine Kinase (39-308) U/L Troponin I (0-0.045) ng/ml Total Protein (6.4-8.2) gm/dl Albumin (3.4-5.0) gm/dl Globulin (2.5-4.0) gm/dl Albumin/Globulin Ratio (0.9-2) Beta-Hydroxybutyric Acd (0.2-2.81) mg/dl TSH (0.300-4.500) uIu/ml Urine Color Dark Yellow Urine Appearance Cloudy A (Clear) Urine pH 5.0 (4.5-7.5) Ur Specific [place] > 1.045 H (1.000-1.030) Urine Protein 2+ H (Negative) Urine Glucose (UA) 3+ H (Negative) Urine Ketones Trace H (Negative) Urine Blood Negative (Negative) Urine Nitrite Negative (Negative) Urine Bilirubin Negative (Negative) Urine Urobilinogen Negative (Negative) Ur Leukocyte Esterase Trace H (Negative) Urine WBC (Auto) 10-30 H (0-5) /hpf Urine RBC (Auto) 0-4 (0-4) /hpf U Hyaline Cast (Auto) 5-10 H (0-5) /lpf U Epithel Cells (Auto) >30 H (0-5) /lpf Urine Bacteria (Auto) 2+ H (Negative) Ur Renal Epithelial Cell Not Reportable Granular Casts 1-5 H (0) /lpf Influenza Type A (PCR) Neg for Influ A (Neg) Influenza Type B (PCR) Neg for Influ B (Neg) SARS-CoV-2 RNA (RT-PCR) Cancelled 02/25/20 Range/Units 18:58 WBC (4.8-10.8) K/uL RBC (4.7-6.1) M/uL Hgb (14.0-18.0) g/dL Hct (42-52) % MCV (80-100) fL MCH (25-34) pg MCHC (32-36) g/dL Plt Count (130-400) K/uL Immature Gran % (Auto) % Neut % (Auto) % Lymph % (Auto) % [place] % (Auto) % Eos % (Auto) % Baso % (Auto) % Immature Gran # (Auto) (0.00-0.02) K/uL Neut # (Auto) (1.4-6.5) K/uL Lymph # (Auto) (1.2-3.4) K/uL [place] # (Auto) (0.11-0.59) K/uL Eos # (Auto) (0-0.5) K/uL Baso # (Auto) (0-0.2) K/uL Hypochromasia Macrocytosis PT (9.0-12.0) Seconds INR (0.9-1.1) Sodium (136-145) mmol/L Potassium (3.5-5.1) mmol/L Chloride (98-107) mmol/L Carbon Dioxide (21-32) mmol/L Anion Gap (3-11) BUN (7-18) mg/dl Creatinine (0.6-1.4) mg/dl Est Cr Clr Drug Dosing Est GFR ( Amer) Est GFR (Non-Af Amer) BUN/Creatinine Ratio (10-20) Glucose (70-99) mg/dl Lactate 1.7 (0.4-2.0) mmol/L Calcium (8.5-10.1) mg/dl Magnesium (1.8-2.4) mg/dl Total Bilirubin (0.2-1) mg/dl AST (15-37) U/L ALT (12-78) U/L Alkaline Phosphatase (45-117) U/L Total Creatine Kinase (39-308) U/L Troponin I (0-0.045) ng/ml Total Protein (6.4-8.2) gm/dl Albumin (3.4-5.0) gm/dl Globulin (2.5-4.0) gm/dl Albumin/Globulin Ratio (0.9-2) Beta-Hydroxybutyric Acd (0.2-2.81) mg/dl TSH (0.300-4.500) uIu/ml Urine Color Urine Appearance (Clear) Urine pH (4.5-7.5) Ur Specific [place] (1.000-1.030) Urine Protein (Negative) Urine Glucose (UA) (Negative) Urine Ketones (Negative) Urine Blood (Negative) Urine Nitrite (Negative) Urine Bilirubin (Negative) Urine Urobilinogen (Negative) Ur Leukocyte Esterase (Negative) Urine WBC (Auto) (0-5) /hpf Urine RBC (Auto) (0-4) /hpf U Hyaline Cast (Auto) (0-5) /lpf U Epithel Cells (Auto) (0-5) /lpf Urine Bacteria (Auto) (Negative) Ur Renal Epithelial Cell Granular Casts (0) /lpf Influenza Type A (PCR) (Neg) Influenza Type B (PCR) (Neg) SARS-CoV-2 RNA (RT-PCR) Blood Pressure Blood Pressure Findings: Normal blood pressure MDM Narrative The patient presents from the local [facility] for evaluation of altered mental status. The patient is unable to provide any history. History was provided by EMS. They state that the patient is less responsive than his baseline. He is noted to have a fever here. He is also tachycardic and tachypneic. The patient has history of a aphasia and stroke. He is a DNR/DNI. No additional information is available at this time. The patient was discharged from the hospital less than 2 weeks ago and was here for aspiration pneumonia and sepsis. He was discharged on oral antibiotics. He did not have oxygen requirement on discharge. The patient does require oxygen to get his saturations above 88% here. The patient's vital signs reveal tachycardia, tachypnea and fever. Is mental status reveals that he has his eyes open. He moves his left arm slightly. Otherwise appears chronically bedbound and noninteractive. The patient sodium is 167. CBC is unremarkable. BUN is 36. Glucose is 330. Troponin was negative. TSH is normal. Urine may be contaminated but possibly infected. Chest x-ray reveals a mild right base infiltrate. Flu swab was negative. COVID testing pending. The patient was given a liter of normal saline IV when he arrived. He was also given a DuoNeb treatment as well as IV cefepime, IV Levaquin and IV vancomycin. He will be seen by the hospitalist for further inpatient evaluation and care. Impression & Plan Acute hypernatremia, AMS (altered mental status), Hypoxia, RLL pneumonia, Fever Discharge Plan Visit Data Chief Complaint: Lethargic ED Provider: Robb Fontenot Discharge Problem: Acute hypernatremia, AMS (altered mental status), Hypoxia, RLL pneumonia, Fever Patient Disposition: Being Evaluated by Hospitalist Forms Stand Alone Forms: [facility] Prescriptions Prescriptions: No Action atorvastatin [Lipitor] 20 mg Tablet 20 mg Feeding Tube HS RF: 0 ipratropium-albuterol 0.5 mg-3 mg(2.5 mg base)/3 mL Solution For Nebulization 3 ml INHALATION Q6H RF: 0 citalopram [Celexa] 40 mg Tablet 40 mg Feeding Tube DAILY RF: 0 trazodone 50 mg Tablet 50 mg Feeding Tube BID RF: 0 guaifenesin [Ri-Tussin] 100 mg/5 mL Liquid 10 ml Feeding Tube Q6H PRN (Reason: Cough) RF: 0 metformin [Glucophage] 1,000 mg Tablet 1,000 mg Feeding Tube BIDM RF: 0 budesonide [Pulmicort] 0.5 mg/2 mL Suspension For Nebulization 0.5 mg INHALATION TID RF: 0 carbamazepine [Tegretol] 100 mg/5 mL Suspension 100 mg Feeding Tube HS RF: 0 levetiracetam [Keppra] 100 mg/mL Solution 10 ml Feeding Tube BID RF: 0 carbamazepine 200 mg/10 mL Suspension 400 mg Feeding Tube BID RF: 0 Xarelto 20 mg Tablet 20 mg G-Tube DAILY RF: 0 ammonium lactate [Ivette-Hydrolac] 12 % Cream 1 applic TOPICAL BID RF: 0 acetaminophen 650 mg/20.3 mL Solution 650 mg feeding tube Q6H PRN (Reason: Pain or Fever < 101) RF: 0 100 Ml Free Water Flush 100 ml feeding tube Q4H RF: 0 docusate sodium 50 mg/5 mL Liquid 100 mg PO Q3D RF: 0 Lantus U-100 Insulin 100 unit/mL Solution 35 unit SUBCUT BID RF: 0 magnesium hydroxide [Milk of Magnesia] 400 mg/5 mL Suspension 30 ml feeding tube UD PRN (Reason: Constipation) RF: 0 bisacodyl [Dulcolax (bisacodyl)] 10 mg Suppository 10 mg MA UD PRN (Reason: Constipation) RF: 0 Enema 19-7 gram/118 mL Enema 118 ml MA UD PRN (Reason: Constipation) RF: 0 omeprazole 20 mg Capsule,Delayed Release(Dr/Ec) 20 mg feeding tube DAILY RF: 0 aspirin 81 mg Tablet,Chewable 81 mg feeding tube DAILY RF: 0 simethicone [Gas Relief (simethicone)] 80 mg Tablet,Chewable 80 mg PO Q6H PRN (Reason: Gas) RF: 0 Stress Formula Tablet 1 tab feeding tube DAILY RF: 0 Florastor 250 mg Capsule 250 mg feeding tube TID RF: 0 Anti-Fungal 2 % Powder 1 applic TOPICAL BID RF: 0 insulin lispro [Humalog U-100 Insulin] 100 unit/mL Solution 8 unit SUBCUT .TODAY RF: 0 Osmolite 1.5 Aron 0.06 gram-1.5 kcal/mL Liquid 0 ea feeding tube .HOLD UNTIL 02/26/20 RF: 0 Liquid Protein Supp 1 dose G-tube BID RF: 0 Referrals Referrals: [facility] [Primary Care Provider] -
[2020-02-25] MEDS ORDERED: ALBUT/IPRATROP 3MG/0.5MG NEB 3 ML VIAL NEB STA (18:24)
--- NOTE | 2020-02-25 18:56 | XRay Report ---
XR chest 1V portable CLINICAL HISTORY: weakness COMPARISON STUDY: Chest CT November 2017. Chest radiograph February 09, 2020. FINDINGS: No pneumothorax or pleural effusion is noted. There is mild elevation of the left hemidiaph ragm. Pulmonary vascularity is normal. Linear left basilar opacity suggests atelectasis. Mild right l ower lung opacity is present. Incidental note is made of multiple right rib fractures. IMPRESSION: 1. Possible mild right basilar opacity. This may reflect artifact, atelectasis or consolidation. 2. Linear left basilar opacity suggestive of atelectasis. ACT 112: Negative or not required by law. Electronically signed by: Ulysses Barron M.D. 02/25/2020 6:55 PM
[2020-02-25 18:57] LABS: Alanine Aminotransferase 21 U/L (12-78); Albumin Level 2.6 gm/dl (3.4-5.0); Aspartate Aminotransferase 13 U/L (15-37); BUN Creatinine Ratio 31.4 (10-20); Blood Urea Nitrogen 36 mg/dl (7-18); Calcium 9.2 mg/dl (8.5-10.1); Carbon Dioxide 33 mmol/L (21-32); Chloride 128 mmol/L (98-107); Est GFR (African American) 80.3; Est GFR (Non-African American) 69.3; Glucose 330 mg/dl (70-99); Magnesium 2.6 mg/dl (1.8-2.4); Potassium 4.1 mmol/L (3.5-5.1); Sodium 167 mmol/L (136-145)
[2020-02-25 19:01] LABS: Albumin Globulin Ratio 0.5 (0.9-2); Alkaline Phosphatase 105 U/L (45-117); Bilirubin,Total 0.3 mg/dl (0.2-1); Creatine Kinase 297 U/L (39-308); Globulin 5.3 gm/dl (2.5-4.0); Total Protein 7.9 gm/dl (6.4-8.2); Troponin I < 0.015 ng/ml (0-0.045)
[2020-02-25 19:07] LABS: Hematocrit (blood only) 52.4 % (42-52); Hemoglobin 15.5 g/dL (14.0-18.0); Mean Corpuscular Hemoglobin 32.3 pg (25-34); Mean Corpuscular Hgb Conc 29.6 g/dL (32-36); Mean Corpuscular Volume 109.2 fL (80-100); Platelet Count 241 K/uL (130-400); White Blood Count 13.25 K/uL (4.8-10.8)
[2020-02-25 19:08] LABS: Appearance Urine Cloudy (Clear); Bilirubin Urine Negative (Negative); Blood Urine Negative (Negative); Color Urine Dark Yellow; Epithelial Cell Urine Auto >30 /lpf (0-5); Glucose Urine UA 3+ (Negative); Ketones Urine Trace (Negative); Leukocyte Esterase Urine Trace (Negative); Nitrite Urine Negative (Negative); Protein Urine 2+ (Negative); RBC Urine Automated 0-4 /hpf (0-4); Specific Gravity Urine > 1.045 (1.000-1.030); Urobilinogen Urine Negative (Negative)
[2020-02-25 19:08] LABS: Beta-Hydroxybutyrate 1.33 mg/dl (0.2-2.81); Thyroid Stimulating Hormone 0.934 uIu/ml (0.300-4.500)
[2020-02-25 19:10] LABS: Basophils # (auto) 0.03 K/uL (0-0.2); Basophils % (auto) 0.2 %; Eosinophils # (auto) 0.07 K/uL (0-0.5); Eosinophils % (auto) 0.5 %; Hypochromasia Present; Immature Granulocytes # (auto) 0.03 K/uL (0.00-0.02); Immature Granulocytes % (auto) 0.2 %; Lymphocytes # (auto) 1.79 K/uL (1.2-3.4); Lymphocytes % (auto) 13.5 %; Macrocytosis Present; Monocytes # (auto) 0.91 K/uL (0.11-0.59); Monocytes % (auto) 6.9 %; Neutrophils # (auto) 10.42 K/uL (1.4-6.5); Neutrophils % (auto) 78.7 %
[2020-02-25 19:28] LABS: Bacteria Urine Automated 2+ (Negative)
[2020-02-25 19:31] LABS: Influenza A virus by PCR Neg for Influ A (Neg); Influenza B virus by PCR Neg for Influ B (Neg)
--- NOTE | 2020-02-25 19:53 | CT Scan Report ---
CT OF THE HEAD WITHOUT CONTRAST CLINICAL HISTORY: Altered mental status. COMPARISON STUDY: Head CT November 17, 2017. CT DOSE: 2450.64 mGycm TECHNIQUE: Helical axial images of the head were obtained without IV contrast. Automated exposure con trol was utilized for the study. A dose lowering technique was utilized adhering to the principles o f ALARA. FINDINGS: No acute intracranial hemorrhage, midline shift or mass effect is present. Ventricular dila tation is unchanged. Bilateral infarcts are unchanged since exam November 17, 2017. There are no findi ngs to suggest acute dural sinus thrombosis or acute territorial infarct. The basilar cisterns are pa tent. There are no extra-axial collections. The right maxillary sinus is now opacified. There is no c alvarial fracture. IMPRESSION: 1. No acute intracranial findings. 2. No change in appearance of the brain. Old bilateral infarcts. 3. Opacified right maxillary sinus. ACT 112: Negative or not required by law. Electronically signed by: Ulysses Barron M.D. 02/25/2020 7:51 PM
--- NOTE | 2020-02-25 21:03 | History & Physical Report ---
Date of Service February 25, 2020 Assessment & Plan (1) Acute hypernatremia: 64yo C male with multiple medical problems, prior CVA with right hemiplegia, minimally verbal presenting from [facility] with sepsis (fever, tachycardia, tachypnea, hypoxia and leukocytosis) most likely secondary to RLL PNA/Aspiration. Patient with severe hypernatremia and hyperglycemia. Pk=683 - corrects to 173 for his hyperglycemia. Free water deficit = 9.4L. Patient has presented with severe hypernatremia in the past, last admission Na was 156 on presentation. Na was appropriately corrected and was 144 on discharge on 02/13/20. Patient clinically dry on exam - received 1L NSS in ER. -Admit to PCU -D5W at 100mL/hr -Check BMP q 4 hours, goal to correct serum sodium by 10mEq/L over 24 hours. Avoid overcorrection (goal <12mEq/L/day) -Patient receives free H2O fllushes by PEG which may also be adjusted pending his rate of correction Present on Admission?: Yes (2) AMS (altered mental status): Patient presents with lethargy, metabolic encephalopathy in setting of severe hypernatremia, sepsis secondary to PNA. Patient has a poor functional baseline. -Correction of underlying medical problems -Frequent orientation to avoid delirium Present on Admission?: Yes (3) RLL pneumonia: Suspect aspiration PNA with sepsis - fever/tachycardia/tachypnea/hypoxia and neutrophil predominant leukocytosis, RLL opacity. Influenza and SARS-CoV-2 negative. Patient with history of aspiration PNA. MRSA nasal screen positive in the past -Follow blood cultures sent from ER -Check Procalcitonin -Repeat CXR in AM -Supplemental O2 as needed to maintain saturation >90% -Vancomycin -Cefepime 2gm IV q 8 -Robitussin PRN cough -Aspiration precautions Present on Admission?: Yes (4) History of venous thrombosis and embolism: Patient with remote history of DVT and PE in 2018. No bleeding. -Continue Xarelto 20mg po daily Present on Admission?: Yes (5) Acute and chronic respiratory failure: History of COPD on 2L NC qHS presenting with tachypnea, hypoxia. Presently with no respiratory distress. Adequate oxygenation on 10L NRB. Lungs diminished in bases but no rhonchi/rales/wheezes. -Continue Ipratropium/Albuterol -Continue Budesonide -Supplemental O2 as needed to maintain saturations 90% Present on Admission?: Yes (6) GERD (gastroesophageal reflux disease): Chronic -Continue Omeprazole 20mg per PEG daily Present on Admission?: Yes (7) Epilepsy: Chronic. Stable. No seizure reported -Continue Keppra and Tegretol Present on Admission?: Yes (8) Type 2 diabetes mellitus with hyperglycemia: Elevated blood sugar at present, 330 . A1C=8.7 during last admission. B- HB negative, no anion gap -Continue Lantus 35u BID -ISS -Goal blood sugar 140 - 180 Present on Admission?: Yes (9) History of CVA (cerebrovascular accident): Patient with right sided hemiparesis, aphasia, s/p PEG tube. Full assist, resides in a [facility] -Continue ASA, Atorvastatin, Xarelto -Continue Aspiration precautions -Continue skin care Present on Admission?: Yes (10) COPD (chronic obstructive pulmonary disease): As above, patient with chronic respiratory failure -Continue home inhalers -O2 as needed Present on Admission?: Yes (11) HLD (hyperlipidemia): Chronic. Stable -Continue Atorvastatin Present on Admission?: Yes (12) PVD (peripheral vascular disease): Chronic. Stable -Continue ASA and Atorvastatin Present on Admission?: Yes (13) CKD (chronic kidney disease): Cr=1.13, slightly above baseline -Avoid nephrotoxic agents -Renal dosing -Monitor BUN/Cr/electrolytes and UOP F/E/N - D5W at 100mL/hr, monitor BMP q 4 hours for sodium correction, TF and free water flushes per home schedule Ppx - Xarelto Code - DNR/DNI Dispo - Admit to PCU Present on Admission?: Yes Admission and Anticipated Discharge Date Admission Date: 02/25/20 Anticipated date of discharge: 02/28/20 History of Present Illness Chief Complaint: Lethargy Primary Care Provider: [facility] Julio Bergman is an unfortunate 64yo C male with history of CVA with right hemiplegia, minimally verbal with expressive aphasia at baseline, COPD with chronic hypoxic respiratory failure, DVT/PE on Xarelto, HTN, Seizure disorder, aspiration PNA s/p PEG-tube placement, DM. Patient resides at [facility]. He was last admitted to [facility] on 02/08/20 with sepsis secondary to LLL PNA, hyperglycemia and lactic acidosis as well as hypernatremia with Jp=078 on arrival. He was treated with IV Vancomycin (history of MRSA) and Zosyn with improvement in symptoms. He was discharged to [facility] on 02/13/20. Of note, patient had negative testing for COVID-19 performed on 01/21 with [facility] positive for Human Metapneumovirus. He had repeat COVID-19 testing performed on 02/11/20 and again today, 02/25/20. He returns today with report of lethargy, fever/SOB and hypoxia. Patient offers no complaints and is non-verbal at baseline. He does not follow commands. On arrival to the ER he was febrile 38.1, tachycardic at 123 bpm, tachypneic at 32bpm saturating 97% on 10L NRB. He was initially placed on Airborne/Contact precautions and COVID-19 PCR was sent which was negative. ER Course: Albuterol 3mL neb, Cefepime 2gm, Levaquin 500mg, NSS x 1L, Vancomycin x 2 gm Allergies Allergy/AdvReac Type Severity Reaction Status Date / Time bee venom protein (honey bee) Allergy Unknown LISTED ON Verified 02/25/20 19:45 MAR pseudoephedrine Allergy Unknown UNKNOWN Verified 02/25/20 19:45 Home Medications Home Medications Medication Instructions Recorded Confirmed Type Xarelto 20 mg G-TUBE DAILY 11/01/18 02/25/20 History atorvastatin [Lipitor] 20 mg FEEDING TUBE HS 11/01/18 02/25/20 History budesonide [Pulmicort] 0.5 mg INHALATION TID 11/01/18 02/25/20 History carbamazepine 400 mg FEEDING TUBE BID 11/01/18 02/25/20 History carbamazepine [Tegretol] 100 mg FEEDING TUBE HS 11/01/18 02/25/20 History citalopram [Celexa] 40 mg FEEDING TUBE DAILY 11/01/18 02/25/20 History guaifenesin [Ri-Tussin] 10 ml FEEDING TUBE Q6H PRN 11/01/18 02/25/20 History ipratropium-albuterol 3 ml INHALATION Q6H 11/01/18 02/25/20 History levetiracetam [Keppra] 10 ml FEEDING TUBE BID 11/01/18 02/25/20 History metformin [Glucophage] 1,000 mg FEEDING TUBE BIDM 11/01/18 02/25/20 History trazodone 50 mg FEEDING TUBE BID 11/01/18 02/25/20 History acetaminophen 650 mg FEEDING TUBE Q6H PRN 10/04/19 02/25/20 History ammonium lactate [Ivette-Hydrolac] 1 applic TOPICAL BID 10/04/19 02/25/20 History 100 Ml Free Water Flush 100 ml FEEDING TUBE Q4H 02/08/20 02/25/20 History Enema 118 ml CA UD PRN 02/08/20 02/25/20 History Florastor 250 mg FEEDING TUBE TID 02/08/20 02/25/20 History Lantus U-100 Insulin 35 unit SUBCUT BID 02/08/20 02/25/20 History Stress Formula 1 tab FEEDING TUBE DAILY 02/08/20 02/25/20 History aspirin 81 mg FEEDING TUBE DAILY 02/08/20 02/25/20 History bisacodyl [Dulcolax (bisacodyl)] 10 mg CA UD PRN 02/08/20 02/25/20 History docusate sodium 100 mg PO Q3D 02/08/20 02/25/20 History magnesium hydroxide [Milk of 30 ml FEEDING TUBE UD PRN 02/08/20 02/25/20 History Magnesia] omeprazole 20 mg FEEDING TUBE DAILY 02/08/20 02/25/20 History simethicone [Gas Relief 80 mg PO Q6H PRN 02/08/20 02/25/20 History (simethicone)] Liquid Protein Supp 1 dose G-TUBE BID 02/25/20 02/25/20 History insulin lispro [Humalog U-100 8 unit SUBCUT .TODAY 02/25/20 02/25/20 History Insulin] miconazole nitrate [Anti-Fungal] 1 applic TOPICAL BID 02/25/20 02/25/20 History nutritional supplements [Osmolite 0 ea FEEDING TUBE .HOLD UNTIL 02/25/20 02/25/20 History 1.5 Aron] 02/26/20 Past Med/Surg History Medical History (Updated 02/25/20 @ 21:25 by Aminah Callaway DO) Aphasia Asthma Chronic respiratory failure with hypoxia CKD (chronic kidney disease) (Chronic) stage 2 Conversion disorder with seizures or convulsions COPD (chronic obstructive pulmonary disease) (Acute) Diabetes (Chronic) type 2 Difficulty in walking Dysphasia as late effect of cerebrovascular accident (CVA) (Chronic) Epilepsy (Chronic) Gastrostomy infection Generalized muscle weakness GERD (gastroesophageal reflux disease) 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 History of CVA (cerebrovascular accident) (Acute) 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 History of venous thrombosis and embolism HLD (hyperlipidemia) (Chronic) Hypertension Pneumonia (Acute) Pressure ulcer of right buttock, stage 2 PVD (peripheral vascular disease) Tinea unguium Unspecified mood [affective] disorder Surgical History Status post insertion of percutaneous endoscopic gastrostomy (PEG) tube Surgical history unknown Family History Other Family history non-contributory Social History Preferred Language: Estonian Communication Ability: Impaired Communication Ability Comment: 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 current occupational status: disabled Feels Safe at Home: Yes Smoking Status: Unknown if ever smoked Hx Alcohol Use: No Hx Substance Use: No Review of Systems Review of Systems: Unobtainable due to cognitive status Physical Exam Physical Exam: General: patient chronically ill in appearance, cachectic, non-verbal, not following commands, right sided hemiparesis with spasticity, NRB in place with surgical mask covering Skin: warm, dry, intact, no rashes or lesions HEENT: NC/AT, PERRL, anicteric sclera, conjunctiva without injection, external ear normal to inspection and nontender, nares patent, dry mucus membranes, dentition intact, no oropharyngeal lesions, neck supple, trachea midline, no LAD, no thyromegaly, no JVD Heart: +S1/S2, regular, tachycardic, no m/r/g Lungs: equal air entry bilaterally, no rales/rhonchi/wheezes, diminished in right base Abd: +BS, soft, NT/ND, no masses/organomegaly/ascites, PEG tube in place Ext: warm, 2+ pulses in UE/LE bilaterally, no clubbing/cyanosis or edema Neuro: right sided hemiparesis with spasticity, non-verbal, not following commands at present, able to move LUE/LLE Results & Data Results & Data ([facility]) Vital Signs (Past 12 Hours) Vital Signs Temp Pulse Pulse Resp BP Pulse Ox 02/25/20 20:30 122 H 21 118/85 97 02/25/20 20:00 119 H 19 122/97 98 02/25/20 19:39 119 H 19 116/88 96 02/25/20 18:50 118 H 20 97 02/25/20 17:57 38.1 C H 123 H 32 H 126/85 97 02/25/20 17:51 126/85 97 Laboratory Results Lab Results 02/25/20 02/25/20 02/25/20 Range/Units 18:20 18:20 18:20 WBC 13.25 H (4.8-10.8) K/uL RBC 4.80 (4.7-6.1) M/uL Hgb 15.5 (14.0-18.0) g/dL Hct 52.4 H (42-52) % MCV 109.2 H (80-100) fL MCH 32.3 (25-34) pg MCHC 29.6 L (32-36) g/dL Plt Count 241 (130-400) K/uL Immature Gran % (Auto) 0.2 % Neut % (Auto) 78.7 % Lymph % (Auto) 13.5 % [place] % (Auto) 6.9 % Eos % (Auto) 0.5 % Baso % (Auto) 0.2 % Immature Gran # (Auto) 0.03 H (0.00-0.02) K/uL Neut # (Auto) 10.42 H (1.4-6.5) K/uL Lymph # (Auto) 1.79 (1.2-3.4) K/uL [place] # (Auto) 0.91 H (0.11-0.59) K/uL Eos # (Auto) 0.07 (0-0.5) K/uL Baso # (Auto) 0.03 (0-0.2) K/uL Hypochromasia Present Macrocytosis Present PT 11.0 (9.0-12.0) Seconds INR 1.0 (0.9-1.1) Sodium 167 H* (136-145) mmol/L Potassium 4.1 (3.5-5.1) mmol/L Chloride 128 H (98-107) mmol/L Carbon Dioxide 33 H (21-32) mmol/L Anion Gap 5.0 (3-11) BUN 36 H (7-18) mg/dl Creatinine 1.13 (0.6-1.4) mg/dl Est Cr Clr Drug Dosing Not Reportable Est GFR ( Amer) 80.3 Est GFR (Non-Af Amer) 69.3 BUN/Creatinine Ratio 31.4 H (10-20) Glucose 330 H* (70-99) mg/dl Lactate (0.4-2.0) mmol/L Calcium 9.2 (8.5-10.1) mg/dl Magnesium 2.6 H (1.8-2.4) mg/dl Total Bilirubin 0.3 (0.2-1) mg/dl AST 13 L (15-37) U/L ALT 21 (12-78) U/L Alkaline Phosphatase 105 (45-117) U/L Total Creatine Kinase 297 (39-308) U/L Troponin I < 0.015 (0-0.045) ng/ml Total Protein 7.9 (6.4-8.2) gm/dl Albumin 2.6 L (3.4-5.0) gm/dl Globulin 5.3 H (2.5-4.0) gm/dl Albumin/Globulin Ratio 0.5 L (0.9-2) Beta-Hydroxybutyric Acd 1.33 (0.2-2.81) mg/dl TSH 0.934 (0.300-4.500) uIu/ml Urine Color Urine Appearance (Clear) Urine pH (4.5-7.5) Ur Specific [place] (1.000-1.030) Urine Protein (Negative) Urine Glucose (UA) (Negative) Urine Ketones (Negative) Urine Blood (Negative) Urine Nitrite (Negative) Urine Bilirubin (Negative) Urine Urobilinogen (Negative) Ur Leukocyte Esterase (Negative) Urine WBC (Auto) (0-5) /hpf Urine RBC (Auto) (0-4) /hpf U Hyaline Cast (Auto) (0-5) /lpf U Epithel Cells (Auto) (0-5) /lpf Urine Bacteria (Auto) (Negative) Ur Renal Epithelial Cell Granular Casts (0) /lpf COVID-19 PCR (Negative) Influenza Type A (PCR) (Neg) Influenza Type B (PCR) (Neg) SARS-CoV-2 RNA (RT-PCR) 02/25/20 02/25/20 02/25/20 Range/Units 18:44 18:44 18:44 WBC (4.8-10.8) K/uL RBC (4.7-6.1) M/uL Hgb (14.0-18.0) g/dL Hct (42-52) % MCV (80-100) fL MCH (25-34) pg MCHC (32-36) g/dL Plt Count (130-400) K/uL Immature Gran % (Auto) % Neut % (Auto) % Lymph % (Auto) % [place] % (Auto) % Eos % (Auto) % Baso % (Auto) % Immature Gran # (Auto) (0.00-0.02) K/uL Neut # (Auto) (1.4-6.5) K/uL Lymph # (Auto) (1.2-3.4) K/uL [place] # (Auto) (0.11-0.59) K/uL Eos # (Auto) (0-0.5) K/uL Baso # (Auto) (0-0.2) K/uL Hypochromasia Macrocytosis PT (9.0-12.0) Seconds INR (0.9-1.1) Sodium (136-145) mmol/L Potassium (3.5-5.1) mmol/L Chloride (98-107) mmol/L Carbon Dioxide (21-32) mmol/L Anion Gap (3-11) BUN (7-18) mg/dl Creatinine (0.6-1.4) mg/dl Est Cr Clr Drug Dosing Est GFR ( Amer) Est GFR (Non-Af Amer) BUN/Creatinine Ratio (10-20) Glucose (70-99) mg/dl Lactate (0.4-2.0) mmol/L Calcium (8.5-10.1) mg/dl Magnesium (1.8-2.4) mg/dl Total Bilirubin (0.2-1) mg/dl AST (15-37) U/L ALT (12-78) U/L Alkaline Phosphatase (45-117) U/L Total Creatine Kinase (39-308) U/L Troponin I (0-0.045) ng/ml Total Protein (6.4-8.2) gm/dl Albumin (3.4-5.0) gm/dl Globulin (2.5-4.0) gm/dl Albumin/Globulin Ratio (0.9-2) Beta-Hydroxybutyric Acd (0.2-2.81) mg/dl TSH (0.300-4.500) uIu/ml Urine Color Urine Appearance (Clear) Urine pH (4.5-7.5) Ur Specific [place] (1.000-1.030) Urine Protein (Negative) Urine Glucose (UA) (Negative) Urine Ketones (Negative) Urine Blood (Negative) Urine Nitrite (Negative) Urine Bilirubin (Negative) Urine Urobilinogen (Negative) Ur Leukocyte Esterase (Negative) Urine WBC (Auto) (0-5) /hpf Urine RBC (Auto) (0-4) /hpf U Hyaline Cast (Auto) (0-5) /lpf U Epithel Cells (Auto) (0-5) /lpf Urine Bacteria (Auto) (Negative) Ur Renal Epithelial Cell Granular Casts (0) /lpf COVID-19 PCR NEGATIVE (Negative) Influenza Type A (PCR) Neg for Influ A (Neg) Influenza Type B (PCR) Neg for Influ B (Neg) SARS-CoV-2 RNA (RT-PCR) Cancelled 02/25/20 02/25/20 Range/Units 18:48 18:58 WBC (4.8-10.8) K/uL RBC (4.7-6.1) M/uL Hgb (14.0-18.0) g/dL Hct (42-52) % MCV (80-100) fL MCH (25-34) pg MCHC (32-36) g/dL Plt Count (130-400) K/uL Immature Gran % (Auto) % Neut % (Auto) % Lymph % (Auto) % [place] % (Auto) % Eos % (Auto) % Baso % (Auto) % Immature Gran # (Auto) (0.00-0.02) K/uL Neut # (Auto) (1.4-6.5) K/uL Lymph # (Auto) (1.2-3.4) K/uL [place] # (Auto) (0.11-0.59) K/uL Eos # (Auto) (0-0.5) K/uL Baso # (Auto) (0-0.2) K/uL Hypochromasia Macrocytosis PT (9.0-12.0) Seconds INR (0.9-1.1) Sodium (136-145) mmol/L Potassium (3.5-5.1) mmol/L Chloride (98-107) mmol/L Carbon Dioxide (21-32) mmol/L Anion Gap (3-11) BUN (7-18) mg/dl Creatinine (0.6-1.4) mg/dl Est Cr Clr Drug Dosing Est GFR ( Amer) Est GFR (Non-Af Amer) BUN/Creatinine Ratio (10-20) Glucose (70-99) mg/dl Lactate 1.7 (0.4-2.0) mmol/L Calcium (8.5-10.1) mg/dl Magnesium (1.8-2.4) mg/dl Total Bilirubin (0.2-1) mg/dl AST (15-37) U/L ALT (12-78) U/L Alkaline Phosphatase (45-117) U/L Total Creatine Kinase (39-308) U/L Troponin I (0-0.045) ng/ml Total Protein (6.4-8.2) gm/dl Albumin (3.4-5.0) gm/dl Globulin (2.5-4.0) gm/dl Albumin/Globulin Ratio (0.9-2) Beta-Hydroxybutyric Acd (0.2-2.81) mg/dl TSH (0.300-4.500) uIu/ml Urine Color Dark Yellow Urine Appearance Cloudy A (Clear) Urine pH 5.0 (4.5-7.5) Ur Specific [place] > 1.045 H (1.000-1.030) Urine Protein 2+ H (Negative) Urine Glucose (UA) 3+ H (Negative) Urine Ketones Trace H (Negative) Urine Blood Negative (Negative) Urine Nitrite Negative (Negative) Urine Bilirubin Negative (Negative) Urine Urobilinogen Negative (Negative) Ur Leukocyte Esterase Trace H (Negative) Urine WBC (Auto) 10-30 H (0-5) /hpf Urine RBC (Auto) 0-4 (0-4) /hpf U Hyaline Cast (Auto) 5-10 H (0-5) /lpf U Epithel Cells (Auto) >30 H (0-5) /lpf Urine Bacteria (Auto) 2+ H (Negative) Ur Renal Epithelial Cell Not Reportable Granular Casts 1-5 H (0) /lpf COVID-19 PCR (Negative) Influenza Type A (PCR) (Neg) Influenza Type B (PCR) (Neg) SARS-CoV-2 RNA (RT-PCR) Diagnostic Findings XR chest 1V portable CLINICAL HISTORY: weakness COMPARISON STUDY: Chest CT November 2017. Chest radiograph February 09, 2020. FINDINGS: No pneumothorax or pleural effusion is noted. There is mild elevation of the left hemidiaphragm. Pulmonary vascularity is normal. Linear left basilar opacity suggests atelectasis. Mild right lower lung opacity is present. Incidental note is made of multiple right rib fractures. IMPRESSION: 1. Possible mild right basilar opacity. This may reflect artifact, atelectasis or consolidation. 2. Linear left basilar opacity suggestive of atelectasis. ACT 112: Negative or not required by law. Electronically signed by: Ulysses Barron M.D. 02/25/2020 6:55 PM Dictated: 02/25/201851 Transcribed: 02/25/201851 CT OF THE HEAD WITHOUT CONTRAST CLINICAL HISTORY: Altered mental status. COMPARISON STUDY: Head CT November 17, 2017. CT DOSE: 2450.64 mGycm TECHNIQUE: Helical axial images of the head were obtained without IV contrast. Automated exposure control was utilized for the study. A dose lowering technique was utilized adhering to the principles of ALARA. FINDINGS: No acute intracranial hemorrhage, midline shift or mass effect is present. Ventricular dilatation is unchanged. Bilateral infarcts are unchanged since exam November 17, 2017. There are no findings to suggest acute dural sinus thrombosis or acute territorial infarct. The basilar cisterns are patent. There are no extra-axial collections. The right maxillary sinus is now opacified. There is no calvarial fracture. IMPRESSION: 1. No acute intracranial findings. 2. No change in appearance of the brain. Old bilateral infarcts. 3. Opacified right maxillary sinus. ACT 112: Negative or not required by law. ECG Additional Comments: Narrow complex tachycardia, 123bpm with p-waves present, most likelyl ST, QRS=64, VOi=138 Code Status & VTE Plan Code Status DNR/DNI VTE Prophylaxis Plan VTE Prophylaxis will be ordered: Yes PG Care Time/CCT Total # of Minutes Spent Total Time Spent with Patient: Total time spent is greater than 50% in coordination of care (as documented) at patient's floor/unit and/or counseling patient: Coding Level of Care Code 25521 Initial Inpt Care Lvl 3 Diagnoses Acute hypernatremia E87.0 AMS (altered mental status) R40.0 Altered mental status type: somnolence RLL pneumonia J69.0 Pneumonia type: aspiration pneumonia Aspiration pneumonia type: unspecified History of venous thrombosis and embolism Z86.718 Acute and chronic respiratory failure J96.21 Respiratory failure complication: hypoxia GERD (gastroesophageal reflux disease) K21.9 Esophagitis presence: esophagitis presence not specified Epilepsy G40.909 Epilepsy type: unspecified Intractability: not intractable Status epilepticus: without status epilepticus Type 2 diabetes mellitus with hyperglycemia E11.65; Z79.4 Diabetes mellitus residential insulin use: with intake man use History of CVA (cerebrovascular accident) Z86.73 COPD (chronic obstructive pulmonary disease) J44.9 COPD type: unspecified COPD HLD (hyperlipidemia) E78.5 Hyperlipidemia type: unspecified PVD (peripheral vascular disease) I73.9 CKD (chronic kidney disease) N18.9 Chronic kidney disease stage: unspecified stage (1) AMS (altered mental status) Altered mental status type: somnolence Qualified Code(s): R40.0 - Somnolence (2) RLL pneumonia Pneumonia type: aspiration pneumonia Aspiration pneumonia type: unspecified Qualified Code(s): J69.0 - Pneumonitis due to inhalation of food and vomit (3) Acute and chronic respiratory failure Respiratory failure complication: hypoxia Qualified Code(s): J96.21 - Acute and chronic respiratory failure with hypoxia (4) GERD (gastroesophageal reflux disease) Esophagitis presence: esophagitis presence not specified Qualified Code(s): K21.9 - Gastro-esophageal reflux disease without esophagitis (5) Epilepsy Epilepsy type: unspecified Intractability: not intractable Status epilepticus: without status epilepticus Qualified Code(s): G40.909 - Epilepsy, unspecified, not intractable, without status epilepticus (6) Type 2 diabetes mellitus with hyperglycemia Diabetes mellitus intake man insulin use: with intake man use Qualified Code(s): E11.65 - Type 2 diabetes mellitus with hyperglycemia; Z79.4 - FPC (current) use of insulin (7) COPD (chronic obstructive pulmonary disease) COPD type: unspecified COPD Qualified Code(s): J44.9 - Chronic obstructive pulmonary disease, unspecified (8) HLD (hyperlipidemia) Hyperlipidemia type: unspecified Qualified Code(s): E78.5 - Hyperlipidemia, unspecified (9) CKD (chronic kidney disease) Chronic kidney disease stage: unspecified stage Qualified Code(s): N18.9 - Chronic kidney disease, unspecified
[2020-02-25] MEDS ORDERED: SIMETHICONE 40 MG/0.6 ML 30ML GT PRN (23:29)
[2020-02-25] MEDS ORDERED: guaiFENesin SUGAR FREE 100 MG/5 ML UDC GT PRN (23:29)
[2020-02-25] MEDS ORDERED: MAGNESIUM HYDROXIDE SUSP 30 ML UDC GT PRN (23:29)
[2020-02-25] MEDS ORDERED: DEXTROSE 50% 50 ML SYRINGE IV PRN (23:29)
[2020-02-25] MEDS ORDERED: GLUCAGON FOR INJ 1 MG VIAL SQ PRN (23:29)
[2020-02-25] MEDS ORDERED: SOD PHOSPHATE/SOD BIPHOSPHATE ENEMA 132 ML BTL PR PRN (23:29)
[2020-02-25] MEDS ORDERED: CARBOHYDRATES FOR HYPOGLYCEMIA PO PRN (23:29)
[2020-02-25] MEDS ORDERED: bisacodyL 10 MG SUPP PR PRN (23:29)
[2020-02-25] MEDS ORDERED: GLUCOSE 10 TABS/TUBE PO PRN (23:29)
[2020-02-25] MEDS ORDERED: INSULIN GLARGINE SOLOSTAR 100 UNITS/ML 3 ML PEN SQ SCH (23:29)
[2020-02-25] MEDS ORDERED: NON-FORMULARY MEDICATION (Acetaminophen 650 MG) feeding tube PRN (23:29)
[2020-02-25] MEDS ORDERED: ONDANSETRON INJ 2 MG/ML 2 ML VIAL IV PRN (23:29)
[2020-02-25] MEDS ORDERED: GLUCOSE 40% GEL 15 GM TUBE PO PRN (23:29)
[2020-02-25] MEDS ORDERED: ACETAMINOPHEN SOLN 650 MG/20.3 ML UDC GT PRN (23:38)
[2020-02-25] MEDS ORDERED: PATIENT'S HEIGHT AND/OR WEIGHT NEEDED SCH (23:45)
[2020-02-26] MEDS: DEXTROSE 5% 1,000 ML IV SCH ×2 (00:15→09:45)
[2020-02-26] MEDS: MICONAZOLE NITRATE POWDER 43 GM TOP SCH ×3 (00:16→20:06)
[2020-02-26] MEDS: ATORVASTATIN 20 MG TAB GT SCH ×2 (00:16→20:05)
[2020-02-26] MEDS: SACCHAROMYCES BOULARDII 250 MG CAP PO SCH ×4 (00:16→20:06)
[2020-02-26] MEDS: TRAZODONE HCL 50 MG TAB GT SCH ×3 (00:16→20:03)
[2020-02-26] MEDS: levETIRAcetam ORAL SOLN 100MG/ML GT SCH ×3 (00:17→20:04)
[2020-02-26] MEDS: PROSOURCE NO CARB 30 ML/PKT GT SCH ×2 (00:17→09:45)
[2020-02-26] MEDS: carBAMazepine 200 MG TABLET PO SCH ×3 (00:19→20:05)
[2020-02-26 00:20] LABS: Phosphorus 4.2 mg/dl (2.5-4.9)
[2020-02-26] MEDS: CARBAMAZEPINE 100 MG CHEW TAB PO SCH ×2 (00:20→20:07)
[2020-02-26] MEDS: TUBE FEEDING WATER FLUSH GT SCH ×6 (00:20→20:02)
[2020-02-26 00:33] LABS: BUN Creatinine Ratio 34.2 (10-20); Calcium 9.1 mg/dl (8.5-10.1); Creatinine Clr Calc Pharmacy 71.7 ml/min; Est GFR (African American) 88.8; Est GFR (Non-African American) 76.6; Potassium 3.6 mmol/L (3.5-5.1)
[2020-02-26] MEDS: ALBUT/IPRATROP 3MG/0.5MG NEB 3 ML VIAL INH SCH ×4 (01:01→19:13)
[2020-02-26 01:27] LABS: Beta-Hydroxybutyrate 1.62 mg/dl (0.2-2.81)
[2020-02-26] MEDS ORDERED: FIBERSOURCE HN 1.2 CAL 1000 ML BAG PO SCH (02:45)
[2020-02-26] MEDS: CEFEPIME 2,000 MG in SYRINGE 7.5 ML IV SCH ×3 (03:31→20:02)
[2020-02-26 03:41] LABS: Basophils # (auto) 0.03 K/uL (0-0.2); Basophils % (auto) 0.2 %; Eosinophils # (auto) 0.12 K/uL (0-0.5); Eosinophils % (auto) 0.9 %; Hematocrit (blood only) 48.4 % (42-52); Hemoglobin 14.6 g/dL (14.0-18.0); Immature Granulocytes # (auto) 0.03 K/uL (0.00-0.02); Immature Granulocytes % (auto) 0.2 %; Lymphocytes # (auto) 1.41 K/uL (1.2-3.4); Lymphocytes % (auto) 11.1 %; Mean Corpuscular Hemoglobin 33.1 pg (25-34); Mean Corpuscular Hgb Conc 30.2 g/dL (32-36); Mean Corpuscular Volume 109.8 fL (80-100); Monocytes # (auto) 1.13 K/uL (0.11-0.59); Monocytes % (auto) 8.9 %; Neutrophils # (auto) 9.99 K/uL (1.4-6.5); Neutrophils % (auto) 78.7 %; Platelet Count 212 K/uL (130-400); RDW Standard Deviation 63.8 fL (36.4-46.3); Red Blood Count 4.41 M/uL (4.7-6.1); White Blood Count 12.71 K/uL (4.8-10.8)
[2020-02-26 04:06] LABS: BUN Creatinine Ratio 35.4 (10-20); Calcium 8.7 mg/dl (8.5-10.1); Est GFR (African American) 84.8; Est GFR (Non-African American) 73.2; Potassium 3.8 mmol/L (3.5-5.1)
[2020-02-26] MEDS ORDERED: DKA GOAL RANGE 150-250 mg/dl ONE (04:11)
[2020-02-26] MEDS ORDERED: DC ALL PREVIOUSLY ORDERED DIABETES MEDS ONE (04:11)
[2020-02-26] MEDS ORDERED: INSULIN REGULAR 250 UNITS in SODIUM CHLORIDE 0.9% 247.5 ML IV SCH ×2 (04:15→05:00)
[2020-02-26 04:27] LABS: Beta-Hydroxybutyrate 1.3 mg/dl (0.2-2.81)
[2020-02-26] MEDS ORDERED: INSULIN HUMAN REGULAR IV BOLUS 1.5 UNITS in SYRINGE 0 ML IV ONE (05:00)
[2020-02-26] MEDS ORDERED: VANCOMYCIN HCL 1,000 MG in SODIUM CHLORIDE 0.9% 250 ML IV SCH (06:00)
[2020-02-26] MEDS: BUDESONIDE 0.5 MG/2 ML VIAL (PULMICORT) INH SCH ×3 (07:10→19:13)
--- NOTE | 2020-02-26 08:02 | XRay Report ---
XR chest 1V portable HISTORY: 64 years-old Male PNA acute shortness of breath with reported pneumonia COMPARISON: Chest radiograph 02/25/2020 TECHNIQUE: Portable AP view of the chest FINDINGS: Multiple healed remote right-sided rib fractures. Degenerative changes of the shoulders and spine. Ca lcified plaque the thoracic aortic arch. The medial right lung apex is partially obscured by the cristina ent's chin. The cardiomediastinal and hilar silhouettes are within normal limits. Mild left hemidiaph ragmatic elevation with linear left lung base opacities. Subtle ill-defined opacity of the right lung base. No pneumothorax, large pleural effusion or overt pulmonary edema. IMPRESSION: 1. Subtle right lung base opacity redemonstrated suggestive of probable atelectasis. Pneumonitis cons idered less likely. 2. Left hemidiaphragmatic elevation with linear left lung base atelectasis redemonstrated. ACT 112: Negative or not required by law. The above report was generated using voice recognition software. It may contain grammatical, syntax o r spelling errors. Electronically signed by: Carloz Saldivar M.D. 02/26/2020 8:01 AM
[2020-02-26 08:10] LABS: BUN Creatinine Ratio 36.7 (10-20); Calcium 8.9 mg/dl (8.5-10.1); Creatinine Clr Calc Pharmacy 73.1 ml/min; Est GFR (African American) 90.9; Est GFR (Non-African American) 78.4; Potassium 3.6 mmol/L (3.5-5.1)
--- NOTE | 2020-02-26 08:35 | Pharmacy Report ---
Pharmacy Abx Initial Consult - Date of Service February 26, 2020 - Pharmacy Dosing Scope Date of Consult: 02/24 Consultation requested by: Dr. Callaway Pharmacy is consulted to initiate vancomycin IV/PO dosing therapy, order appropriate labs and adjust drug dose/frequency. - Subjective The patient is a 64 year old M admitted on 02/25/20 20:34. - Objective Height: 6 ft 1 in Weight: 68.8 kg Vital Signs (Past 12hrs): Vital Signs Temp Pulse Pulse Resp BP BP Pulse Ox 02/26/20 07:13 110 H 18 90 02/26/20 07:11 37.4 C 108 H 17 103/75 91 02/26/20 03:47 37.3 C 111 H 18 112/66 92 02/26/20 01:01 114 H 16 92 02/25/20 23:29 37.2 C 115 H 20 122/79 91 02/25/20 22:00 114 H 25 H 110/78 91 02/25/20 21:30 117 H 13 117/87 93 02/25/20 21:26 37.4 C 118 H 20 129/102 H 95 02/25/20 21:00 117 H 23 129/102 H 99 02/25/20 20:38 118 H 20 97 Pulse Ox 02/26/20 07:13 02/26/20 07:11 02/26/20 03:47 02/26/20 01:01 02/25/20 23:29 91 02/25/20 22:00 02/25/20 21:30 02/25/20 21:26 02/25/20 21:00 02/25/20 20:38 Lab Results (24hrs): Laboratory Tests (24 Hours) 02/26/20 02/26/20 02/26/20 07:13 03:33 03:33 WBC 12.71 H Neut # (Auto) 9.99 H Creatinine 1.02 1.08 Est Cr Clr Drug Dosing 73.1 69.0 Total Creatine Kinase Procalcitonin 02/25/20 02/25/20 02/25/20 23:45 18:20 18:20 WBC Neut # (Auto) Creatinine 1.04 1.13 Est Cr Clr Drug Dosing 71.7 Not Reportable Total Creatine Kinase 297 Procalcitonin 0.47 02/25/20 18:20 WBC 13.25 H Neut # (Auto) 10.42 H Creatinine Est Cr Clr Drug Dosing Total Creatine Kinase Procalcitonin Micro Results: 02/25/20 18:58 Aerobic Blood Culture - Pending Blood Anaerobic Blood Culture - Pending 02/25/20 18:20 Aerobic Blood Culture - Pending Blood Anaerobic Blood Culture - Pending - Risk Factors for Resistance * Resident in a penitentiary or extended-care facility * Hospitalization for 48 hours or more within the past 90 days * 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, 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, corynebacterium * Antimicrobial use within the last 90 days [vancomycin last admission and augm/doxy on discharge] - Assessment & Plan Assessment 64 year old male presenting with possible sepsis, RLL pneumonia/aspiration with severe hypernatremia and hyperglycemia on admission Plan Vancomycin IV * Received loading dose of vancomycin 2000 mg x 1 last evening * Will start maintenance dose of vancomcyin 1000 mg iv q 12 hrs (~15 mg/kg) - dosing based upon previous admission pharmacokinetic data * Estimated kinetics: t1/2~11 hrs, ke~0.064, Crcl ~73 * Will plan to obtain a trough if to be continued >48 hrs Pharmacy will continue to follow and will adjust dose/frequency as necessary. Thank you.
[2020-02-26 08:36] LABS: Beta-Hydroxybutyrate 0.84 mg/dl (0.2-2.81)
[2020-02-26] MEDS: INSULIN ASPART 100 UNITS/ML 3 ML PEN SC SCH ×4 (08:39→23:08)
[2020-02-26] MEDS ORDERED: PEPTAMEN 1.5 CAL 1,000 ML BAG PO SCH (09:00)
[2020-02-26] MEDS: MULTI VIT W/MINERALS LIQUID 15 ML UDP GT SCH (09:43)
[2020-02-26] MEDS: LANSOPRAZOLE 30 MG SOLTAB GT SCH (09:44)
[2020-02-26] MEDS: CITALOPRAM 40 MG TAB GT SCH (09:44)
[2020-02-26] MEDS: RIVAROXABAN 20 MG TAB PO SCH (09:44)
[2020-02-26] MEDS: AMMONIUM LACTATE 12% LOTION 225 GM BTL EXT SCH ×2 (09:44→20:06)
[2020-02-26] MEDS: ASPIRIN 81 MG CHEW GT SCH (09:44)
[2020-02-26] MEDS: VANCOMYCIN HCL 1,000 MG in SODIUM CHLORIDE 0.9% 250 ML IV SCH (12:25)
[2020-02-26 12:37] LABS: Calcium 8.9 mg/dl (8.5-10.1); Creatinine Clr Calc Pharmacy 75.3 ml/min; Est GFR (African American) 94.2; Est GFR (Non-African American) 81.3; Potassium 3.2 mmol/L (3.5-5.1)
[2020-02-26 12:52] LABS: Beta-Hydroxybutyrate 0.84 mg/dl (0.2-2.81)
[2020-02-26 16:06] LABS: BUN Creatinine Ratio 39.9 (10-20); Calcium 8.7 mg/dl (8.5-10.1); Creatinine Clr Calc Pharmacy 78.5 ml/min; Est GFR (Non-African American) 85.4; Potassium 3.3 mmol/L (3.5-5.1)
--- NOTE | 2020-02-26 17:07 | Hospitalist Progress Note ---
Date of Service February 26, 2020 Assessment & Plan (1) Acute hypernatremia: 64yo C male with multiple medical problems, prior CVA with right hemiplegia, minimally verbal presenting from shelter with sepsis (fever, tachycardia, tachypnea, hypoxia and leukocytosis) most likely secondary to RLL PNA/Aspiration. Patient with severe hypernatremia and hyperglycemia. Oo=452 - corrects to 173 for his hyperglycemia. Free water deficit = 9.4L. Patient has presented with severe hypernatremia in the past, last admission Na was 156 on presentation. Na was appropriately corrected and was 144 on discharge on 02/13/20. Patient clinically dry on exam - received 1L NSS in ER. Na down to 162 this morning, repeat down < 160 decrease D5W to 50cc/hr, increase free water flushes to 300mL q4 -Check BMP q 4 hours (2) AMS (altered mental status): Patient presents with lethargy, metabolic encephalopathy in setting of severe hypernatremia, sepsis secondary to PNA. Patient has a poor functional baseline. -Correction of underlying medical problems -Frequent orientation to avoid delirium difficult to determine mental state, non-verbal, no signs of agitation (3) RLL pneumonia: Suspect aspiration PNA with sepsis - fever/tachycardia/tachypnea/hypoxia and neutrophil predominant leukocytosis, RLL opacity. Influenza and SARS-CoV-2 negative. Patient with history of aspiration PNA. MRSA nasal screen positive in the past -Follow blood cultures sent from ER: no growth -Supplemental O2 as needed to maintain saturation >90% -Vancomycin -Cefepime 2gm IV q 8 -Robitussin PRN cough -Aspiration precautions (4) History of venous thrombosis and embolism: Patient with remote history of DVT and PE in 2018. No bleeding. -Continue Xarelto 20mg po daily (5) Acute and chronic respiratory failure: History of COPD on 2L NC qHS presenting with tachypnea, hypoxia. Presently with no respiratory distress. Adequate oxygenation on 10L NRB. Lungs diminished in bases but no rhonchi/rales/wheezes. -Continue Ipratropium/Albuterol -Continue Budesonide -Supplemental O2 as needed to maintain saturations 90% (6) GERD (gastroesophageal reflux disease): Chronic -Continue Omeprazole 20mg per PEG daily (7) Epilepsy: Chronic. Stable. No seizure reported -Continue Keppra and Tegretol (8) Type 2 diabetes mellitus with hyperglycemia: started on insulin infusion due to D5W at 100mL/hr decreased infusion to 50mL/hr sugars corrected will change to Novolog q6 -Continue Lantus 35u BID -ISS -Goal blood sugar 140 - 180 (9) History of CVA (cerebrovascular accident): Patient with right sided hemiparesis, aphasia, s/p PEG tube. Full assist, resides in a shelter -Continue ASA, Atorvastatin, Xarelto -Continue Aspiration precautions -Continue skin care (10) COPD (chronic obstructive pulmonary disease): As above, patient with chronic respiratory failure -Continue home inhalers -O2 as needed (11) HLD (hyperlipidemia): Chronic. Stable -Continue Atorvastatin (12) PVD (peripheral vascular disease): Chronic. Stable -Continue ASA and Atorvastatin (13) CKD (chronic kidney disease): Cr at baseline -Avoid nephrotoxic agents -Renal dosing -Monitor BUN/Cr/electrolytes and UOP F/E/N - D5W at 50mL/hr, monitor BMP q 4 hours for sodium correction, TF and free water flushes Ppx - Xarelto Code - DNR/DNI Dispo - Admit to PCU Admission and Anticipated Discharge Date Admission Date: February 25, 2020 Subjective patient non verbal, no ROS possible no acute issues over night per RN reviewed labs, Na coming down but not significantly, only 162 this morning issues with hyperglycemia with the D5W drip ordered increased free water flushes, decrease D5W K low at 3.3, replacement ordered Review of Systems Review of Systems: Unobtainable due to cognitive status Physical Exam Constitutional: well developed, + thin, + frail appearing and + lethargic Eyes: PERRL, conjunctivae normal, anicteric sclerae ENMT: external ear and nose normal, oropharynx normal Neck: trachea midline, no thyromegaly Respiratory: normal respiratory effort, lungs clear to auscultation Cardiovascular: RRR, no murmur, no edema Gastrointestinal (Abdomen): normal bowel sounds, soft, nontender, no hepatosplenomegaly Musculoskeletal: Head/Neck/Chest: normocephalic and head atraumatic Extremities: + abnormal strength (generalized weakness, hemiplegia) and + muscle atrophy; no cyanosis and no clubbing Skin: no rashes, warm and dry Neurologic: CN's II-XI intact bilaterally and + focal motor deficit; + does not move all extremities Speech / Cognition: + expressive aphasia and + abnormal cognition Motor/Sensory: no tremor Psychiatric: Orientation: + not alert and + not oriented x 3 Lymphatic: no cervical or axillary lymphadenopathy Results & Data Results & Data ([facility]) Vital Signs (Past 12 Hours) Vital Signs Temp Pulse Resp BP Pulse Ox 02/26/20 15:25 36.5 C 107 H 20 101/68 88 L 02/26/20 13:25 99 H 18 91 02/26/20 11:34 36.8 C 108 H 18 97/67 L 91 02/26/20 07:13 110 H 18 90 02/26/20 07:11 37.4 C 108 H 17 103/75 91 Laboratory Results Laboratory Results - last 24 hr 02/25/20 02/25/20 02/25/20 18:20 18:20 18:20 WBC 13.25 H RBC 4.80 Hgb 15.5 Hct 52.4 H MCV 109.2 H MCH 32.3 MCHC 29.6 L RDW Std Deviation RDW Coeff of Nick Plt Count 241 MPV Immature Gran % (Auto) 0.2 Neut % (Auto) 78.7 Lymph % (Auto) 13.5 [place] % (Auto) 6.9 Eos % (Auto) 0.5 Baso % (Auto) 0.2 Immature Gran # (Auto) 0.03 H Neut # (Auto) 10.42 H Lymph # (Auto) 1.79 [place] # (Auto) 0.91 H Eos # (Auto) 0.07 Baso # (Auto) 0.03 Hypochromasia Present Macrocytosis Present PT 11.0 INR 1.0 Sodium 167 H* Potassium 4.1 Chloride 128 H Carbon Dioxide 33 H Anion Gap 5.0 BUN 36 H Creatinine 1.13 Est Cr Clr Drug Dosing Not Reportable Est GFR ( Amer) 80.3 Est GFR (Non-Af Amer) 69.3 BUN/Creatinine Ratio 31.4 H Glucose 330 H* POC Glucose Lactate Calcium 9.2 Phosphorus 4.2 Magnesium 2.6 H Total Bilirubin 0.3 AST 13 L ALT 21 Alkaline Phosphatase 105 Total Creatine Kinase 297 Troponin I < 0.015 Total Protein 7.9 Albumin 2.6 L Globulin 5.3 H Albumin/Globulin Ratio 0.5 L Beta-Hydroxybutyric Acd 1.33 Procalcitonin TSH 0.934 Urine Color Urine Appearance Urine pH Ur Specific [place] Urine Protein Urine Glucose (UA) Urine Ketones Urine Blood Urine Nitrite Urine Bilirubin Urine Urobilinogen Ur Leukocyte Esterase Urine WBC (Auto) Urine RBC (Auto) U Hyaline Cast (Auto) U Epithel Cells (Auto) Urine Bacteria (Auto) Ur Renal Epithelial Cell Granular Casts Nasal Screen MRSA (PCR) COVID-19 PCR Influenza Type A (PCR) Influenza Type B (PCR) SARS-CoV-2 RNA (RT-PCR) 02/25/20 02/25/20 02/25/20 18:20 18:44 18:44 WBC RBC Hgb Hct MCV MCH MCHC RDW Std Deviation RDW Coeff of Nick Plt Count MPV Immature Gran % (Auto) Neut % (Auto) Lymph % (Auto) [place] % (Auto) Eos % (Auto) Baso % (Auto) Immature Gran # (Auto) Neut # (Auto) Lymph # (Auto) [place] # (Auto) Eos # (Auto) Baso # (Auto) Hypochromasia Macrocytosis PT INR Sodium Potassium Chloride Carbon Dioxide Anion Gap BUN Creatinine Est Cr Clr Drug Dosing Est GFR ( Amer) Est GFR (Non-Af Amer) BUN/Creatinine Ratio Glucose POC Glucose Lactate Calcium Phosphorus Magnesium Total Bilirubin AST ALT Alkaline Phosphatase Total Creatine Kinase Troponin I Total Protein Albumin Globulin Albumin/Globulin Ratio Beta-Hydroxybutyric Acd Procalcitonin 0.47 TSH Urine Color Urine Appearance Urine pH Ur Specific [place] Urine Protein Urine Glucose (UA) Urine Ketones Urine Blood Urine Nitrite Urine Bilirubin Urine Urobilinogen Ur Leukocyte Esterase Urine WBC (Auto) Urine RBC (Auto) U Hyaline Cast (Auto) U Epithel Cells (Auto) Urine Bacteria (Auto) Ur Renal Epithelial Cell Granular Casts Nasal Screen MRSA (PCR) COVID-19 PCR Influenza Type A (PCR) Neg for Influ A Influenza Type B (PCR) Neg for Influ B SARS-CoV-2 RNA (RT-PCR) Cancelled 02/25/20 02/25/20 02/25/20 18:44 18:48 18:58 WBC RBC Hgb Hct MCV MCH MCHC RDW Std Deviation RDW Coeff of Nick Plt Count MPV Immature Gran % (Auto) Neut % (Auto) Lymph % (Auto) [place] % (Auto) Eos % (Auto) Baso % (Auto) Immature Gran # (Auto) Neut # (Auto) Lymph # (Auto) [place] # (Auto) Eos # (Auto) Baso # (Auto) Hypochromasia Macrocytosis PT INR Sodium Potassium Chloride Carbon Dioxide Anion Gap BUN Creatinine Est Cr Clr Drug Dosing Est GFR ( Amer) Est GFR (Non-Af Amer) BUN/Creatinine Ratio Glucose POC Glucose Lactate 1.7 Calcium Phosphorus Magnesium Total Bilirubin AST ALT Alkaline Phosphatase Total Creatine Kinase Troponin I Total Protein Albumin Globulin Albumin/Globulin Ratio Beta-Hydroxybutyric Acd Procalcitonin TSH Urine Color Dark Yellow Urine Appearance Cloudy A Urine pH 5.0 Ur Specific [place] > 1.045 H Urine Protein 2+ H Urine Glucose (UA) 3+ H Urine Ketones Trace H Urine Blood Negative Urine Nitrite Negative Urine Bilirubin Negative Urine Urobilinogen Negative Ur Leukocyte Esterase Trace H Urine WBC (Auto) 10-30 H Urine RBC (Auto) 0-4 U Hyaline Cast (Auto) 5-10 H U Epithel Cells (Auto) >30 H Urine Bacteria (Auto) 2+ H Ur Renal Epithelial Cell Not Reportable Granular Casts 1-5 H Nasal Screen MRSA (PCR) COVID-19 PCR NEGATIVE Influenza Type A (PCR) Influenza Type B (PCR) SARS-CoV-2 RNA (RT-PCR) 02/25/20 02/25/20 02/26/20 23:42 23:45 03:30 WBC RBC Hgb Hct MCV MCH MCHC RDW Std Deviation RDW Coeff of Nick Plt Count MPV Immature Gran % (Auto) Neut % (Auto) Lymph % (Auto) [place] % (Auto) Eos % (Auto) Baso % (Auto) Immature Gran # (Auto) Neut # (Auto) Lymph # (Auto) [place] # (Auto) Eos # (Auto) Baso # (Auto) Hypochromasia Macrocytosis PT INR Sodium 167 H* Potassium 3.6 Chloride 131 H Carbon Dioxide 31 Anion Gap 7.0 BUN 36 H Creatinine 1.04 Est Cr Clr Drug Dosing 71.7 Est GFR ( Amer) 88.8 Est GFR (Non-Af Amer) 76.6 BUN/Creatinine Ratio 34.2 H Glucose 319 H* POC Glucose 251 H Lactate Calcium 9.1 Phosphorus Magnesium Total Bilirubin AST ALT Alkaline Phosphatase Total Creatine Kinase Troponin I Total Protein Albumin Globulin Albumin/Globulin Ratio Beta-Hydroxybutyric Acd 1.62 Procalcitonin TSH Urine Color Urine Appearance Urine pH Ur Specific [place] Urine Protein Urine Glucose (UA) Urine Ketones Urine Blood Urine Nitrite Urine Bilirubin Urine Urobilinogen Ur Leukocyte Esterase Urine WBC (Auto) Urine RBC (Auto) U Hyaline Cast (Auto) U Epithel Cells (Auto) Urine Bacteria (Auto) Ur Renal Epithelial Cell Granular Casts Nasal Screen MRSA (PCR) Positive A COVID-19 PCR Influenza Type A (PCR) Influenza Type B (PCR) SARS-CoV-2 RNA (RT-PCR) 02/26/20 02/26/20 02/26/20 03:33 03:33 06:32 WBC 12.71 H RBC 4.41 L Hgb 14.6 Hct 48.4 MCV 109.8 H MCH 33.1 MCHC 30.2 L RDW Std Deviation 63.8 H RDW Coeff of Nick 16.0 H Plt Count 212 MPV 13.0 H Immature Gran % (Auto) 0.2 Neut % (Auto) 78.7 Lymph % (Auto) 11.1 [place] % (Auto) 8.9 Eos % (Auto) 0.9 Baso % (Auto) 0.2 Immature Gran # (Auto) 0.03 H Neut # (Auto) 9.99 H Lymph # (Auto) 1.41 [place] # (Auto) 1.13 H Eos # (Auto) 0.12 Baso # (Auto) 0.03 Hypochromasia Macrocytosis PT INR Sodium 164 H* Potassium 3.8 Chloride 129 H Carbon Dioxide 29 Anion Gap 7.0 BUN 38 H Creatinine 1.08 Est Cr Clr Drug Dosing 69.0 Est GFR ( Amer) 84.8 Est GFR (Non-Af Amer) 73.2 BUN/Creatinine Ratio 35.4 H Glucose 395 H* POC Glucose 319 H* Lactate Calcium 8.7 Phosphorus Magnesium Total Bilirubin AST ALT Alkaline Phosphatase Total Creatine Kinase Troponin I Total Protein Albumin Globulin Albumin/Globulin Ratio Beta-Hydroxybutyric Acd 1.30 Procalcitonin TSH Urine Color Urine Appearance Urine pH Ur Specific [place] Urine Protein Urine Glucose (UA) Urine Ketones Urine Blood Urine Nitrite Urine Bilirubin Urine Urobilinogen Ur Leukocyte Esterase Urine WBC (Auto) Urine RBC (Auto) U Hyaline Cast (Auto) U Epithel Cells (Auto) Urine Bacteria (Auto) Ur Renal Epithelial Cell Granular Casts Nasal Screen MRSA (PCR) COVID-19 PCR Influenza Type A (PCR) Influenza Type B (PCR) SARS-CoV-2 RNA (RT-PCR) 02/26/20 02/26/20 02/26/20 07:13 07:29 08:27 WBC RBC Hgb Hct MCV MCH MCHC RDW Std Deviation RDW Coeff of Nick Plt Count MPV Immature Gran % (Auto) Neut % (Auto) Lymph % (Auto) [place] % (Auto) Eos % (Auto) Baso % (Auto) Immature Gran # (Auto) Neut # (Auto) Lymph # (Auto) [place] # (Auto) Eos # (Auto) Baso # (Auto) Hypochromasia Macrocytosis PT INR Sodium 162 H* Potassium 3.6 Chloride 126 H Carbon Dioxide 33 H Anion Gap 3.0 BUN 37 H Creatinine 1.02 Est Cr Clr Drug Dosing 73.1 Est GFR ( Amer) 90.9 Est GFR (Non-Af Amer) 78.4 BUN/Creatinine Ratio 36.7 H Glucose 327 H* POC Glucose 306 H* 316 H* Lactate Calcium 8.9 Phosphorus Magnesium Total Bilirubin AST ALT Alkaline Phosphatase Total Creatine Kinase Troponin I Total Protein Albumin Globulin Albumin/Globulin Ratio Beta-Hydroxybutyric Acd 0.84 Procalcitonin TSH Urine Color Urine Appearance Urine pH Ur Specific [place] Urine Protein Urine Glucose (UA) Urine Ketones Urine Blood Urine Nitrite Urine Bilirubin Urine Urobilinogen Ur Leukocyte Esterase Urine WBC (Auto) Urine RBC (Auto) U Hyaline Cast (Auto) U Epithel Cells (Auto) Urine Bacteria (Auto) Ur Renal Epithelial Cell Granular Casts Nasal Screen MRSA (PCR) COVID-19 PCR Influenza Type A (PCR) Influenza Type B (PCR) SARS-CoV-2 RNA (RT-PCR) 02/26/20 02/26/20 02/26/20 09:42 10:26 11:32 WBC RBC Hgb Hct MCV MCH MCHC RDW Std Deviation RDW Coeff of Nick Plt Count MPV Immature Gran % (Auto) Neut % (Auto) Lymph % (Auto) [place] % (Auto) Eos % (Auto) Baso % (Auto) Immature Gran # (Auto) Neut # (Auto) Lymph # (Auto) [place] # (Auto) Eos # (Auto) Baso # (Auto) Hypochromasia Macrocytosis PT INR Sodium 159 H* Potassium 3.2 L Chloride 125 H Carbon Dioxide 29 Anion Gap 4.0 BUN 36 H Creatinine 0.99 Est Cr Clr Drug Dosing 75.3 Est GFR ( Amer) 94.2 Est GFR (Non-Af Amer) 81.3 BUN/Creatinine Ratio 37.0 H Glucose 331 H* POC Glucose 297 H 300 H Lactate Calcium 8.9 Phosphorus Magnesium Total Bilirubin AST ALT Alkaline Phosphatase Total Creatine Kinase Troponin I Total Protein Albumin Globulin Albumin/Globulin Ratio Beta-Hydroxybutyric Acd 0.84 Procalcitonin TSH Urine Color Urine Appearance Urine pH Ur Specific [place] Urine Protein Urine Glucose (UA) Urine Ketones Urine Blood Urine Nitrite Urine Bilirubin Urine Urobilinogen Ur Leukocyte Esterase Urine WBC (Auto) Urine RBC (Auto) U Hyaline Cast (Auto) U Epithel Cells (Auto) Urine Bacteria (Auto) Ur Renal Epithelial Cell Granular Casts Nasal Screen MRSA (PCR) COVID-19 PCR Influenza Type A (PCR) Influenza Type B (PCR) SARS-CoV-2 RNA (RT-PCR) 02/26/20 02/26/20 02/26/20 11:33 12:36 13:30 WBC RBC Hgb Hct MCV MCH MCHC RDW Std Deviation RDW Coeff of Nick Plt Count MPV Immature Gran % (Auto) Neut % (Auto) Lymph % (Auto) [place] % (Auto) Eos % (Auto) Baso % (Auto) Immature Gran # (Auto) Neut # (Auto) Lymph # (Auto) [place] # (Auto) Eos # (Auto) Baso # (Auto) Hypochromasia Macrocytosis PT INR Sodium Potassium Chloride Carbon Dioxide Anion Gap BUN Creatinine Est Cr Clr Drug Dosing Est GFR ( Amer) Est GFR (Non-Af Amer) BUN/Creatinine Ratio Glucose POC Glucose 307 H* 262 H 266 H Lactate Calcium Phosphorus Magnesium Total Bilirubin AST ALT Alkaline Phosphatase Total Creatine Kinase Troponin I Total Protein Albumin Globulin Albumin/Globulin Ratio Beta-Hydroxybutyric Acd Procalcitonin TSH Urine Color Urine Appearance Urine pH Ur Specific [place] Urine Protein Urine Glucose (UA) Urine Ketones Urine Blood Urine Nitrite Urine Bilirubin Urine Urobilinogen Ur Leukocyte Esterase Urine WBC (Auto) Urine RBC (Auto) U Hyaline Cast (Auto) U Epithel Cells (Auto) Urine Bacteria (Auto) Ur Renal Epithelial Cell Granular Casts Nasal Screen MRSA (PCR) COVID-19 PCR Influenza Type A (PCR) Influenza Type B (PCR) SARS-CoV-2 RNA (RT-PCR) 02/26/20 02/26/20 02/26/20 14:42 15:13 16:30 WBC RBC Hgb Hct MCV MCH MCHC RDW Std Deviation RDW Coeff of Nick Plt Count MPV Immature Gran % (Auto) Neut % (Auto) Lymph % (Auto) [place] % (Auto) Eos % (Auto) Baso % (Auto) Immature Gran # (Auto) Neut # (Auto) Lymph # (Auto) [place] # (Auto) Eos # (Auto) Baso # (Auto) Hypochromasia Macrocytosis PT INR Sodium 158 H* Potassium 3.3 L Chloride 125 H Carbon Dioxide 28 Anion Gap 6.0 BUN 38 H Creatinine 0.95 Est Cr Clr Drug Dosing 78.5 Est GFR ( Amer) 99.0 Est GFR (Non-Af Amer) 85.4 BUN/Creatinine Ratio 39.9 H Glucose 238 H POC Glucose 199 H 165 H Lactate Calcium 8.7 Phosphorus Magnesium Total Bilirubin AST ALT Alkaline Phosphatase Total Creatine Kinase Troponin I Total Protein Albumin Globulin Albumin/Globulin Ratio Beta-Hydroxybutyric Acd Procalcitonin TSH Urine Color Urine Appearance Urine pH Ur Specific [place] Urine Protein Urine Glucose (UA) Urine Ketones Urine Blood Urine Nitrite Urine Bilirubin Urine Urobilinogen Ur Leukocyte Esterase Urine WBC (Auto) Urine RBC (Auto) U Hyaline Cast (Auto) U Epithel Cells (Auto) Urine Bacteria (Auto) Ur Renal Epithelial Cell Granular Casts Nasal Screen MRSA (PCR) COVID-19 PCR Influenza Type A (PCR) Influenza Type B (PCR) SARS-CoV-2 RNA (RT-PCR) Medications Administered Current Inpatient Medications Acetaminophen (Tylenol Soln) 650 mg GT Q4H PRN PRN Reason: Pain or Fever Stop: 03/26/20 23:37 Albuterol (Duoneb) 3 ml INH Q6R [facility] Stop: 03/27/20 00:59 Last Admin: 02/26/20 13:23 Dose: 3 ml Documented by: Aspirin (Aspirin Chew) 81 mg GT DAILY [facility] Stop: 03/27/20 08:59 Last Admin: 02/26/20 09:44 Dose: 81 mg Documented by: Atorvastatin Calcium (Lipitor) 20 mg GT HS [facility] Stop: 03/26/20 23:28 Last Admin: 02/26/20 00:16 Dose: 20 mg Documented by: Bisacodyl (Dulcolax) 10 mg HI UD PRN PRN Reason: Constipation Stop: 03/26/20 23:28 Budesonide (Pulmicort Respules) 0.5 mg INH TIDR [facility] Stop: 03/27/20 06:59 Last Admin: 02/26/20 13:23 Dose: 0.5 mg Documented by: Carbamazepine (Tegretol) 100 mg PO HS [facility] Stop: 03/26/20 23:28 Last Admin: 02/26/20 00:20 Dose: 100 mg Documented by: Carbamazepine (Tegretol) 400 mg PO BID [facility] Stop: 03/26/20 23:28 Last Admin: 02/26/20 09:44 Dose: 400 mg Documented by: Citalopram Hydrobromide (Celexa) 40 mg GT DAILY [facility] Stop: 03/27/20 08:59 Last Admin: 02/26/20 09:44 Dose: 40 mg Documented by: Dextrose (Dextrose 50%) 25 - 50 ml IV UD PRN; Protocol PRN Reason: Hypoglycemia Protocol Stop: 03/26/20 23:28 Docusate Sodium (Colace) 100 mg GT Q3D [facility] Stop: 03/28/20 08:59 Enteral Nutritional Formula (Fibersource Hn 1.2 Aron Liquid) 1,000 ml PO UD [facility]; Protocol Stop: 03/27/20 02:44 Enteral Nutritional Formula (Peptamen 1.5 Aron) 1,000 ml PEG .CONTINUOUS [facility]; Protocol Stop: 03/27/20 12:59 Glucagon (Glucagen) 1 mg SQ UD PRN; Protocol PRN Reason: Hypoglycemia Protocol Stop: 03/26/20 23:28 Glucose (Dex4 Glucose) 4 - 8 tabs PO UD PRN; Protocol PRN Reason: Hypoglycemia Protocol Stop: 03/26/20 23:28 Glucose (Glucose 40%) 15 - 30 gm PO UD PRN; Protocol PRN Reason: Hypoglycemia Protocol Stop: 03/26/20 23:28 Guaifenesin (Robitussin Sugar Free Syrup) 200 mg GT Q6H PRN PRN Reason: Cough Stop: 03/26/20 23:28 Cefepime HCl 2,000 mg/ Syringe 20 mls @ 5.5 mls/min IV Q8H [facility]; Protocol Stop: 03/04/20 03:59 Last Admin: 02/26/20 13:31 Dose: 5.5 mls/min Documented by: Dextrose (D5w) 1,000 mls @ 50 mls/hr IV .Q20H [facility] Stop: 03/26/20 23:28 Last Infusion: 02/26/20 12:00 Dose: 50 mls/hr Documented by: Insulin Human Regular 250 (units/ Sodium Chloride) 250 mls @ 2.1 mls/hr IV .Q24H [facility]; Protocol Stop: 03/27/20 04:59 Last Titration: 02/26/20 16:30 Dose: 2.1 units/hr, 2.1 mls/hr Documented by: Vancomycin HCl 1,000 mg/ (Sodium Chloride) 270 mls @ 125 mls/hr IV Q12H [facility] Stop: 03/04/20 11:59 Last Infusion: 02/26/20 14:49 Dose: Infused Documented by: Insulin Aspart (Novolog Flexpen) 0 units SC ACHS [facility] Stop: 03/27/20 07:29 Last Admin: 02/26/20 12:49 Dose: Not Given Documented by: Lactic Acid (Amlactin) 1 gm EXT BID [facility] Stop: 03/27/20 08:59 Last Admin: 02/26/20 09:44 Dose: 1 gm Documented by: Lansoprazole (Prevacid) 30 mg GT DAILY [facility] Stop: 03/27/20 08:59 Last Admin: 02/26/20 09:44 Dose: 30 mg Documented by: Levetiracetam (Keppra) 1,000 mg GT BID [facility] Stop: 03/26/20 23:28 Last Admin: 02/26/20 09:44 Dose: 1,000 mg Documented by: Magnesium Hydroxide (Milk Of Magnesia) 30 ml GT DAILY PRN PRN Reason: Constipation Stop: 03/26/20 23:28 Miconazole Nitrate (Desenex) 1 appln TOP BID [facility] Stop: 03/26/20 23:28 Last Admin: 02/26/20 09:45 Dose: 1 appln Documented by: Miscellaneous (Carbohydrates For Hypoglycemia) 15 - 30 gm PO UD PRN PRN Reason: Hypoglycemia Protocol Stop: 03/26/20 23:28 Miscellaneous Information (Consult) 1 ea N/A UD PRN PRN Reason: Consult Stop: 03/26/20 23:28 Multivitamins/Minerals (Cerovite Liquid) 15 ml GT DAILY [facility] Stop: 03/27/20 08:59 Last Admin: 02/26/20 09:43 Dose: 15 ml Documented by: Nutritional Formula (Prosource No Carb) 30 ml GT DAILY [facility] Stop: 03/28/20 08:59 Ondansetron HCl (Zofran) 4 mg IV Q6H PRN PRN Reason: Nausea Stop: 03/26/20 23:28 Potassium Chloride (Kristi Ciel Elix) 20 meq PEG BID [facility] Stop: 03/27/20 20:59 Rivaroxaban (Xarelto) 20 mg PO DAILY [facility] Stop: 03/27/20 08:59 Last Admin: 02/26/20 09:44 Dose: 20 mg Documented by: Saccharomyces Boulardii (Florastor) 250 mg PO TID [facility] Stop: 03/26/20 23:28 Last Admin: 02/26/20 13:31 Dose: 250 mg Documented by: Simethicone (Mylicon) 80 mg GT Q6H PRN PRN Reason: Gas Stop: 03/26/20 23:28 Sodium Biphosphate/Sodium Phosphate (Fleet Enema) 118 ml HI DAILY PRN PRN Reason: Constipation Stop: 03/26/20 23:28 Sterile Water (Tube Feeding Water Flush) 1 ea GT Q4 [facility] Stop: 03/27/20 00:00 Last Admin: 02/26/20 17:03 Dose: 1 ea Documented by: Trazodone HCl (Desyrel) 50 mg GT BID [facility] Stop: 03/26/20 23:28 Last Admin: 02/26/20 09:43 Dose: 50 mg Documented by: PG Care Time/CCT Total # of Minutes Spent Total Time Spent with Patient: Total time spent is greater than 50% in coordination of care (as documented) at patient's floor/unit and/or counseling patient: Coding Level of Care Code 95108 Subseq Hosp Care Lvl 3 Diagnoses Acute hypernatremia E87.0 AMS (altered mental status) R40.0 Altered mental status type: somnolence RLL pneumonia J69.0 Aspiration pneumonia type: unspecified Pneumonia type: aspiration pneumonia History of venous thrombosis and embolism Z86.718 Acute and chronic respiratory failure J96.21 Respiratory failure complication: hypoxia GERD (gastroesophageal reflux disease) K21.9 Esophagitis presence: esophagitis presence not specified Epilepsy G40.909 Epilepsy type: unspecified Intractability: not intractable Status epilepticus: without status epilepticus Type 2 diabetes mellitus with hyperglycemia E11.65; Z79.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 History of CVA (cerebrovascular accident) Z86.73 COPD (chronic obstructive pulmonary disease) J44.9 COPD type: unspecified COPD HLD (hyperlipidemia) E78.5 Hyperlipidemia type: unspecified PVD (peripheral vascular disease) I73.9 CKD (chronic kidney disease) N18.9 Chronic kidney disease stage: unspecified stage (1) Type 2 diabetes mellitus with hyperglycemia 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 Qualified Code(s): E11.65 - Type 2 diabetes mellitus with hyperglycemia; 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 (2) Epilepsy Epilepsy type: unspecified Intractability: not intractable Status epilepticus: without status epilepticus Qualified Code(s): G40.909 - Epilepsy, unspecified, not intractable, without status epilepticus (3) Acute and chronic respiratory failure Respiratory failure complication: hypoxia Qualified Code(s): J96.21 - Acute and chronic respiratory failure with hypoxia (4) HLD (hyperlipidemia) Hyperlipidemia type: unspecified Qualified Code(s): E78.5 - Hyperlipidemia, unspecified (5) CKD (chronic kidney disease) Chronic kidney disease stage: unspecified stage Qualified Code(s): N18.9 - Chronic kidney disease, unspecified (6) AMS (altered mental status) Altered mental status type: somnolence Qualified Code(s): R40.0 - Somnolence (7) COPD (chronic obstructive pulmonary disease) COPD type: unspecified COPD Qualified Code(s): J44.9 - Chronic obstructive pulmonary disease, unspecified (8) RLL pneumonia Aspiration pneumonia type: unspecified Pneumonia type: aspiration pneumonia Qualified Code(s): J69.0 - Pneumonitis due to inhalation of food and vomit (9) GERD (gastroesophageal reflux disease) Esophagitis presence: esophagitis presence not specified Qualified Code(s): K21.9 - Gastro-esophageal reflux disease without esophagitis
[2020-02-26] MEDS ORDERED: INSULIN ASPART 100 UNITS/ML 3 ML PEN SC SCH ×2 (18:00)
[2020-02-26] MEDS: POTASSIUM CHLORIDE 20 MEQ/15 ML UDC PEG SCH (20:03)
[2020-02-26 20:05] LABS: BUN Creatinine Ratio 38.1 (10-20); Calcium 8.2 mg/dl (8.5-10.1); Creatinine Clr Calc Pharmacy 84.7 ml/min; Est GFR (African American) 106.7; Est GFR (Non-African American) 92.1
--- NOTE | 2020-02-26 22:03 | Electrocardiogram Report ---
Test Reason : Blood Pressure : / mmHG Vent. Rate : 123 BPM Atrial Rate : 127 BPM P-R Int : 140 ms QRS Dur : 064 ms QT Int : 420 ms P-R-T Axes : 000 057 045 degrees QTc Int : 601 ms Poor data quality, interpretation may be adversely affected Sinus tachycardia Abnormal ECG When compared with ECG of 08-FEB-2020 14:13, T wave inversion now evident in Inferior leads Confirmed by Anderson Pearson ([id number]) on 02/26/2020 10:02:50 PM Referred By: [facility] Confirmed By:Anderson Pearson
[2020-02-26 23:55] LABS: BUN Creatinine Ratio 35.7 (10-20); Calcium 8.3 mg/dl (8.5-10.1); Creatinine Clr Calc Pharmacy 79.3 ml/min; Est GFR (African American) 100.3; Est GFR (Non-African American) 86.5; Potassium 3.6 mmol/L (3.5-5.1)
[2020-02-27] MEDS: TUBE FEEDING WATER FLUSH GT SCH ×6 (00:33→19:42)
[2020-02-27] MEDS: INSULIN ASPART 100 UNITS/ML 3 ML PEN SC SCH ×3 (00:34→12:09)
[2020-02-27] MEDS: VANCOMYCIN HCL 1,000 MG in SODIUM CHLORIDE 0.9% 250 ML IV SCH ×2 (00:36→12:00)
[2020-02-27] MEDS: ALBUT/IPRATROP 3MG/0.5MG NEB 3 ML VIAL INH SCH ×4 (01:05→19:03)
[2020-02-27] MEDS: CEFEPIME 2,000 MG in SYRINGE 7.5 ML IV SCH ×3 (03:21→19:42)
[2020-02-27] MEDS: DEXTROSE 5% 1,000 ML IV SCH ×2 (03:23→16:44)
[2020-02-27 04:09] LABS: Creatinine Clr Calc Pharmacy 80.1 ml/min; Est GFR (African American) 101.6; Est GFR (Non-African American) 87.7
[2020-02-27 04:12] LABS: Calcium 8.2 mg/dl (8.5-10.1); Creatinine Clr Calc Pharmacy 76.1 ml/min; Est GFR (African American) 95.4; Est GFR (Non-African American) 82.3; Potassium 3.5 mmol/L (3.5-5.1)
[2020-02-27] MEDS: BUDESONIDE 0.5 MG/2 ML VIAL (PULMICORT) INH SCH ×3 (07:05→19:03)
[2020-02-27] MEDS: TRAZODONE HCL 50 MG TAB GT SCH ×2 (08:45→20:25)
[2020-02-27] MEDS: AMMONIUM LACTATE 12% LOTION 225 GM BTL EXT SCH ×2 (08:45→20:26)
[2020-02-27] MEDS: LANSOPRAZOLE 30 MG SOLTAB GT SCH (08:45)
[2020-02-27] MEDS: carBAMazepine 200 MG TABLET PO SCH ×2 (08:45→20:24)
[2020-02-27] MEDS: RIVAROXABAN 20 MG TAB PO SCH (08:45)
[2020-02-27] MEDS: CITALOPRAM 40 MG TAB GT SCH (08:45)
[2020-02-27] MEDS: ASPIRIN 81 MG CHEW GT SCH (08:45)
[2020-02-27] MEDS: MULTI VIT W/MINERALS LIQUID 15 ML UDP GT SCH (08:46)
[2020-02-27] MEDS: levETIRAcetam ORAL SOLN 100MG/ML GT SCH ×2 (08:46→20:23)
[2020-02-27] MEDS: SACCHAROMYCES BOULARDII 250 MG CAP PO SCH ×3 (08:46→20:22)
[2020-02-27] MEDS: POTASSIUM CHLORIDE 20 MEQ/15 ML UDC PEG SCH ×2 (08:47→20:26)
[2020-02-27] MEDS: PROSOURCE NO CARB 30 ML/PKT GT SCH (08:47)
[2020-02-27] MEDS: MICONAZOLE NITRATE POWDER 43 GM TOP SCH ×2 (08:47→20:26)
[2020-02-27] MEDS: DOCUSATE SODIUM SYRUP 100 MG/10 ML UDC GT SCH (09:08)
[2020-02-27] MEDS: PEPTAMEN 1.5 CAL 1,000 ML BAG PEG SCH (12:02)
--- NOTE | 2020-02-27 12:30 | Nephrology Consultation ---
Date of Consultation February 27, 2020 Assessment & Plan (1) Acute hypernatremia: Mr. Bergman has repeated episode acute hyponatremia which have resolved so with free water replacement. Unlikely to have DI as urine osmolality high urine volume has been normal. Most likely due to free water deficit because inability to take orally and only depends on PEG tube feeding. Has normal renal function. --suggest increasing free water with PEG to to 400 mL every 4 hours --check serum sodium q.12 hours --no other workup indicated at this time. Will follow Thank you for allowing me to participate in your patient's care. It was a pleasure to see Mr. Bergman (2) AMS (altered mental status): (3) Hypertension: History of Present Illness Reason for Consultation: Persistent hypernatremia. Attending Physician: Jame Nazario DO History of Present Illness Mr. Bergman is a 64yo male who unfortunately has has a complicated past medical history including CVA with right hemiplegia, minimally verbal with expressive aphasia at baseline, COPD with chronic hypoxic respiratory failure, DVT/PE on Xarelto, HTN, Seizure disorder, aspiration PNA s/p PEG-tube placement and DM. He was admitted with sepsis with possible pneumonia and hyponatremia. Nephrology consult was requested to manage persistent hyponatremia. Electronic medical records including labs [facility] reviewed in detail during patient's visit. Mr. Bergman resides at [facility]. He was admitted to the hospital on 02/25/2020 with symptom of lethargy, fever, shortness of breath and hypoxia. He was diagnosed with possible pneumonia and started on empiric antibiotic. On admission he was found to be hyponatremic with serum sodium 167. Off note, he has repeated episode hyponatremia over last 2 years. Last few days he has been getting add D5 but sodium stayed around 160s. Urine output has been around 2- 2.5 liters, urine osmolality has been high. Has normal renal function, creatinine around 1.0. He was last admitted to [facility] on 02/08/20 with sepsis secondary to LLL PNA as well as hypernatremia and was discharged to [facility] on 02/13/20. He has PEG tube. He seems comfortable and offers no complaints and is non-verbal at baseline. He does not follow commands. Allergies Allergy/AdvReac Type Severity Reaction Status Date / Time bee venom protein (honey bee) Allergy Unknown LISTED ON Verified 02/25/20 19:45 MAR pseudoephedrine Allergy Unknown UNKNOWN Verified 02/25/20 19:45 Home Medications Home Medications Medication Instructions Recorded Confirmed Type Xarelto 20 mg G-TUBE DAILY 11/01/18 02/25/20 History atorvastatin [Lipitor] 20 mg FEEDING TUBE HS 11/01/18 02/25/20 History budesonide [Pulmicort] 0.5 mg INHALATION TID 11/01/18 02/25/20 History carbamazepine 400 mg FEEDING TUBE BID 11/01/18 02/25/20 History carbamazepine [Tegretol] 100 mg FEEDING TUBE HS 11/01/18 02/25/20 History citalopram [Celexa] 40 mg FEEDING TUBE DAILY 11/01/18 02/25/20 History guaifenesin [Ri-Tussin] 10 ml FEEDING TUBE Q6H PRN 11/01/18 02/25/20 History ipratropium-albuterol 3 ml INHALATION Q6H 11/01/18 02/25/20 History levetiracetam [Keppra] 10 ml FEEDING TUBE BID 11/01/18 02/25/20 History metformin [Glucophage] 1,000 mg FEEDING TUBE BIDM 11/01/18 02/25/20 History trazodone 50 mg FEEDING TUBE BID 11/01/18 02/25/20 History acetaminophen 650 mg FEEDING TUBE Q6H PRN 10/04/19 02/25/20 History ammonium lactate [Ivette-Hydrolac] 1 applic TOPICAL BID 10/04/19 02/25/20 History 100 Ml Free Water Flush 100 ml FEEDING TUBE Q4H 02/08/20 02/25/20 History Enema 118 ml CO UD PRN 02/08/20 02/25/20 History Florastor 250 mg FEEDING TUBE TID 02/08/20 02/25/20 History Lantus U-100 Insulin 35 unit SUBCUT BID 02/08/20 02/25/20 History Stress Formula 1 tab FEEDING TUBE DAILY 02/08/20 02/25/20 History aspirin 81 mg FEEDING TUBE DAILY 02/08/20 02/25/20 History bisacodyl [Dulcolax (bisacodyl)] 10 mg CO UD PRN 02/08/20 02/25/20 History docusate sodium 100 mg PO Q3D 02/08/20 02/25/20 History magnesium hydroxide [Milk of 30 ml FEEDING TUBE UD PRN 02/08/20 02/25/20 History Magnesia] omeprazole 20 mg FEEDING TUBE DAILY 02/08/20 02/25/20 History simethicone [Gas Relief 80 mg PO Q6H PRN 02/08/20 02/25/20 History (simethicone)] Liquid Protein Supp 1 dose G-TUBE BID 02/25/20 02/25/20 History insulin lispro [Humalog U-100 8 unit SUBCUT .TODAY 02/25/20 02/25/20 History Insulin] miconazole nitrate [Anti-Fungal] 1 applic TOPICAL BID 02/25/20 02/25/20 History nutritional supplements [Osmolite 0 ea FEEDING TUBE .HOLD UNTIL 02/25/20 02/25/20 History 1.5 Aron] 02/26/20 Patient History Medical History (Updated 02/25/20 @ 21:25 by Aminah Callaway DO) Aphasia Asthma Chronic respiratory failure with hypoxia CKD (chronic kidney disease) (Chronic) stage 2 Conversion disorder with seizures or convulsions COPD (chronic obstructive pulmonary disease) (Acute) Diabetes (Chronic) type 2 Difficulty in walking Dysphasia as late effect of cerebrovascular accident (CVA) (Chronic) Epilepsy (Chronic) Gastrostomy infection Generalized muscle weakness GERD (gastroesophageal reflux disease) 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 History of CVA (cerebrovascular accident) (Acute) 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 History of venous thrombosis and embolism HLD (hyperlipidemia) (Chronic) Hypertension Pneumonia (Acute) Pressure ulcer of right buttock, stage 2 PVD (peripheral vascular disease) Tinea unguium Unspecified mood [affective] disorder Surgical History Status post insertion of percutaneous endoscopic gastrostomy (PEG) tube Surgical history unknown Family History Other Family history non-contributory Social History Preferred Language: Ukrainian Communication Ability: Unable Government Affairs Specialist Required: No Beliefs That Will Affect Care: None marital status: Single Current Living Situation: Intermediate Current Living Situation Comment: [facility]. current occupational status: disabled Feels Safe at Home: Yes Smoking Status: Unknown if ever smoked Hx Alcohol Use: No Hx Substance Use: No Review of Systems Review of Systems: Unobtainable due to cognitive status Physical Exam Constitutional: + ill appearing; no acute distress Eyes: + anicteric sclerae Neck: Thyroid: thyroid nontender Respiratory: normal respiratory effort, lungs clear to auscultation Cardiovascular: RRR, no murmur, no edema Gastrointestinal (Abdomen): Inspection/Auscultation: abdomen normal to inspection and normal bowel sounds Percussion/Palpation: abdomen nontender Musculoskeletal: Extremities: extremities normal to inspection Gait: normal gait Skin: no rashes, warm and dry Neurologic: Could not be assessed. Psychiatric: Could not be assessed. Results & Data Vital Signs (Past 12 Hours) Vital Signs Temp Pulse Pulse Resp BP Pulse Ox Pulse Ox 02/27/20 10:11 91 H 02/27/20 07:06 78 18 91 02/27/20 06:52 36.6 C 88 20 105/73 97 02/27/20 04:48 37.1 C 96 H 19 103/69 93 02/27/20 02:12 92 02/27/20 01:48 106 H 02/27/20 01:05 109 H 20 79 L PG Care Time/CCT Total # of Minutes Spent Total Time Spent with Patient: Total time spent is greater than 50% in coordination of care (as documented) at patient's floor/unit and/or counseling patient: Coding Level of Care Code 93675 Inpt Consult Level 4 Diagnoses Acute hypernatremia E87.0 AMS (altered mental status) R40.0 Altered mental status type: somnolence Hypertension I10 Hypertension type: essential hypertension (1) AMS (altered mental status) Altered mental status type: somnolence Qualified Code(s): R40.0 - Somnolence (2) Hypertension Hypertension type: essential hypertension Qualified Code(s): I10 - Essential (primary) hypertension
--- NOTE | 2020-02-27 13:04 | Hospitalist Progress Note ---
Date of Service February 27, 2020 Assessment & Plan (1) Acute hypernatremia: 64yo C male with multiple medical problems, prior CVA with right hemiplegia, minimally verbal presenting from residential with sepsis (fever, tachycardia, tachypnea, hypoxia and leukocytosis) most likely secondary to RLL PNA/Aspiration. Patient with severe hypernatremia and hyperglycemia. Ci=788 - corrects to 173 for his hyperglycemia. Free water deficit = 9.4L. Patient has presented with severe hypernatremia in the past, last admission Na was 156 on presentation. Na was appropriately corrected and was 144 on discharge on 02/13/20. Patient clinically dry on exam - received 1L NSS in ER. Na up to 162 after being down to 158 yesterday, this is despite free water via PEG and D5W will increase free water flushes to 400mL q4 urine specific gravity is up, thus urine concentrated which rules out DI, plus he is not making much urine repeat BMP in the morning this is ongoing issue, will need to determine strategy with free water flushes that can be accomplished at SNF (2) AMS (altered mental status): Patient presents with lethargy, metabolic encephalopathy in setting of severe hypernatremia, sepsis secondary to PNA. Patient has a poor functional baseline. -Correction of underlying medical problems -Frequent orientation to avoid delirium difficult to determine mental state, non-verbal, no signs of agitation no major change in mental status today (3) RLL pneumonia: Suspect aspiration PNA with sepsis - fever/tachycardia/tachypnea/hypoxia and neutrophil predominant leukocytosis, RLL opacity. Influenza and SARS-CoV-2 negative. Patient with history of aspiration PNA. MRSA nasal screen positive in the past -Follow blood cultures sent from ER: no growth to date -Supplemental O2 as needed to maintain saturation >90% -Vancomycin -Cefepime 2gm IV q 8 -Robitussin PRN cough -Aspiration precautions repeat CBC in the morning (4) History of venous thrombosis and embolism: Patient with remote history of DVT and PE in 2018. No bleeding. -Continue Xarelto 20mg po daily (5) Acute and chronic respiratory failure: History of COPD on 2L NC qHS presenting with tachypnea, hypoxia. Presently with no respiratory distress. Adequate oxygenation on 10L NRB. Lungs diminished in bases but no rhonchi/rales/wheezes. -Continue Ipratropium/Albuterol -Continue Budesonide -Supplemental O2 as needed to maintain saturations 90% (6) GERD (gastroesophageal reflux disease): Chronic -Continue Omeprazole 20mg per PEG daily (7) Epilepsy: Chronic. Stable. No seizure reported -Continue Keppra and Tegretol (8) Type 2 diabetes mellitus with hyperglycemia: hyperglycemia again today now with tube feeds consult pharmacy for glycemic management -Continue Lantus 35u BID -ISS -Goal blood sugar 140 - 180 (9) History of CVA (cerebrovascular accident): Patient with right sided hemiparesis, aphasia, s/p PEG tube. Full assist, resides in a residential -Continue ASA, Atorvastatin, Xarelto -Continue Aspiration precautions -Continue skin care (10) COPD (chronic obstructive pulmonary disease): As above, patient with chronic respiratory failure -Continue home inhalers -O2 as needed (11) HLD (hyperlipidemia): Chronic. Stable -Continue Atorvastatin (12) PVD (peripheral vascular disease): Chronic. Stable -Continue ASA and Atorvastatin (13) CKD (chronic kidney disease): Cr at baseline -Avoid nephrotoxic agents -Renal dosing -Monitor BUN/Cr/electrolytes and UOP F/E/N - TF and free water flushes Ppx - Xarelto Code - DNR/DNI Dispo - Admit to PCU Admission and Anticipated Discharge Date Admission Date: February 25, 2020 Subjective Na trending back up this morning despite 1.8 liters of free water given not making an abundance of urine, argues against DI, also, urine specific gravity high, urine concentrated discussed with Dr Fraire, she agrees to give increased free water via PEG, repeat BMP developing hyperglycemia again, will consult pharmacy for glycemic management no acute issues over night Review of Systems Review of Systems: Unobtainable due to cognitive status Physical Exam Constitutional: well developed, + thin, + frail appearing and + lethargic Eyes: PERRL, conjunctivae normal, anicteric sclerae ENMT: external ear and nose normal, oropharynx normal Neck: trachea midline, no thyromegaly Respiratory: normal respiratory effort, lungs clear to auscultation Cardiovascular: RRR, no murmur, no edema Gastrointestinal (Abdomen): normal bowel sounds, soft, nontender, no hepatosplenomegaly Musculoskeletal: Head/Neck/Chest: normocephalic and head atraumatic Extremities: + abnormal strength (generalized weakness, hemiplegia) and + muscle atrophy; no cyanosis and no clubbing Skin: no rashes, warm and dry Neurologic: CN's II-XI intact bilaterally and + focal motor deficit; + does not move all extremities Speech / Cognition: + expressive aphasia and + abnormal cognition Motor/Sensory: no tremor Psychiatric: Orientation: + not alert and + not oriented x 3 Lymphatic: no cervical or axillary lymphadenopathy Results & Data Results & Data ([facility]) Vital Signs (Past 12 Hours) Vital Signs Temp Pulse Pulse Resp BP Pulse Ox Pulse Ox 02/27/20 10:11 91 H 02/27/20 07:06 78 18 91 02/27/20 06:52 36.6 C 88 20 105/73 97 02/27/20 04:48 37.1 C 96 H 19 103/69 93 02/27/20 02:12 92 02/27/20 01:48 106 H 02/27/20 01:05 109 H 20 79 L Laboratory Results Laboratory Results - last 24 hr 02/26/20 02/27/20 02/27/20 23:15 00:28 03:34 Sodium 161 H* 160 H* Potassium 3.6 3.5 Chloride 126 H 125 H Carbon Dioxide 29 29 Anion Gap 6.0 6.0 BUN 34 H 31 H Creatinine 0.94 0.98 Est Cr Clr Drug Dosing 79.3 76.1 Est GFR ( Amer) 100.3 95.4 Est GFR (Non-Af Amer) 86.5 82.3 BUN/Creatinine Ratio 35.7 H 32.0 H Glucose 210 H 256 H POC Glucose 247 H Calcium 8.3 L 8.2 L 02/27/20 02/27/20 02/27/20 03:34 05:40 11:59 Sodium Potassium Chloride Carbon Dioxide Anion Gap BUN Creatinine 0.93 Est Cr Clr Drug Dosing 80.1 Est GFR ( Amer) 101.6 Est GFR (Non-Af Amer) 87.7 BUN/Creatinine Ratio Glucose POC Glucose 291 H 364 H* Calcium 02/27/20 02/27/20 02/27/20 13:37 14:57 16:04 Sodium Potassium Chloride Carbon Dioxide Anion Gap BUN Creatinine Est Cr Clr Drug Dosing Est GFR ( Amer) Est GFR (Non-Af Amer) BUN/Creatinine Ratio Glucose POC Glucose 348 H* 320 H* 344 H* Calcium 02/27/20 02/27/20 02/27/20 16:58 18:01 19:08 Sodium Potassium Chloride Carbon Dioxide Anion Gap BUN Creatinine Est Cr Clr Drug Dosing Est GFR ( Amer) Est GFR (Non-Af Amer) BUN/Creatinine Ratio Glucose POC Glucose 337 H* 326 H* 282 H Calcium 02/27/20 20:03 Sodium Potassium Chloride Carbon Dioxide Anion Gap BUN Creatinine Est Cr Clr Drug Dosing Est GFR ( Amer) Est GFR (Non-Af Amer) BUN/Creatinine Ratio Glucose POC Glucose 269 H Calcium Medications Administered Current Inpatient Medications Acetaminophen (Tylenol Soln) 650 mg GT Q4H PRN PRN Reason: Pain or Fever Stop: 03/26/20 23:37 Albuterol (Duoneb) 3 ml INH Q6R BARBARA Stop: 03/27/20 00:59 Last Admin: 02/27/20 19:03 Dose: 3 ml Documented by: Aspirin (Aspirin Chew) 81 mg GT DAILY BARBARA Stop: 03/27/20 08:59 Last Admin: 02/27/20 08:45 Dose: 81 mg Documented by: Atorvastatin Calcium (Lipitor) 20 mg GT HS BARBARA Stop: 03/26/20 23:28 Last Admin: 02/27/20 20:23 Dose: 20 mg Documented by: Bisacodyl (Dulcolax) 10 mg HI UD PRN PRN Reason: Constipation Stop: 03/26/20 23:28 Budesonide (Pulmicort Respules) 0.5 mg INH TIDR BARBARA Stop: 03/27/20 06:59 Last Admin: 02/27/20 19:03 Dose: 0.5 mg Documented by: Carbamazepine (Tegretol) 100 mg PO HS BARBARA Stop: 03/26/20 23:28 Last Admin: 02/27/20 20:26 Dose: 100 mg Documented by: Carbamazepine (Tegretol) 400 mg PO BID BARBARA Stop: 03/26/20 23:28 Last Admin: 02/27/20 20:24 Dose: 400 mg Documented by: Citalopram Hydrobromide (Celexa) 40 mg GT DAILY BARBARA Stop: 03/27/20 08:59 Last Admin: 02/27/20 08:45 Dose: 40 mg Documented by: Dextrose (Dextrose 50%) 25 - 50 ml IV UD PRN; Protocol PRN Reason: Hypoglycemia Protocol Stop: 03/26/20 23:28 Docusate Sodium (Colace) 100 mg GT Q3D BARBARA Stop: 03/28/20 08:59 Last Admin: 02/27/20 09:08 Dose: 100 mg Documented by: Enteral Nutritional Formula (Fibersource Hn 1.2 Aron Liquid) 1,000 ml PO UD BARBARA; Protocol Stop: 03/27/20 02:44 Enteral Nutritional Formula (Peptamen 1.5 Aron) 1,000 ml PEG .CONTINUOUS BARBARA; Protocol Stop: 03/27/20 12:59 Last Admin: 02/27/20 12:02 Dose: 1,000 ml Documented by: Glucagon (Glucagen) 1 mg SQ UD PRN; Protocol PRN Reason: Hypoglycemia Protocol Stop: 03/26/20 23:28 Glucose (Dex4 Glucose) 4 - 8 tabs PO UD PRN; Protocol PRN Reason: Hypoglycemia Protocol Stop: 03/26/20 23:28 Glucose (Glucose 40%) 15 - 30 gm PO UD PRN; Protocol PRN Reason: Hypoglycemia Protocol Stop: 03/26/20 23:28 Guaifenesin (Robitussin Sugar Free Syrup) 200 mg GT Q6H PRN PRN Reason: Cough Stop: 03/26/20 23:28 Cefepime HCl 2,000 mg/ Syringe 20 mls @ 5.5 mls/min IV Q8H BARBARA; Protocol Stop: 03/04/20 03:59 Last Admin: 02/27/20 19:42 Dose: 5.5 mls/min Documented by: Dextrose (D5w) 1,000 mls @ 50 mls/hr IV .Q20H BARBARA Stop: 03/26/20 23:28 Last Admin: 02/27/20 16:44 Dose: Not Given Documented by: Vancomycin HCl 1,000 mg/ (Sodium Chloride) 270 mls @ 125 mls/hr IV Q12H BARBARA Stop: 03/04/20 11:59 Last Infusion: 02/27/20 14:10 Dose: Infused Documented by: Insulin Human Regular 250 (units/ Sodium Chloride) 250 mls @ 4.1 mls/hr IV .Q24H BARBARA; Protocol Stop: 03/28/20 13:44 Last Titration: 02/27/20 19:09 Dose: 4.1 units/hr, 4.1 mls/hr Documented by: Insulin Aspart (Novolog Flexpen) 0 units SC Q6 BARBARA Stop: 03/29/20 00:00 Lactic Acid (Amlactin) 1 gm EXT BID BARBARA Stop: 03/27/20 08:59 Last Admin: 02/27/20 20:26 Dose: 1 gm Documented by: Lansoprazole (Prevacid) 30 mg GT DAILY BARBARA Stop: 03/27/20 08:59 Last Admin: 02/27/20 08:45 Dose: 30 mg Documented by: Levetiracetam (Keppra) 1,000 mg GT BID BARBARA Stop: 03/26/20 23:28 Last Admin: 02/27/20 20:23 Dose: 1,000 mg Documented by: Magnesium Hydroxide (Milk Of Magnesia) 30 ml GT DAILY PRN PRN Reason: Constipation Stop: 03/26/20 23:28 Miconazole Nitrate (Desenex) 1 appln TOP BID BARBARA Stop: 03/26/20 23:28 Last Admin: 02/27/20 20:26 Dose: 1 appln Documented by: Miscellaneous (Carbohydrates For Hypoglycemia) 15 - 30 gm PO UD PRN PRN Reason: Hypoglycemia Protocol Stop: 03/26/20 23:28 Miscellaneous Information (Consult) 1 ea N/A UD PRN PRN Reason: Consult Stop: 03/26/20 23:28 Miscellaneous Information (Consult Glycemic Management Pharmacy) 1 ea N/A UD PRN PRN Reason: Consult Stop: 03/28/20 13:26 Multivitamins/Minerals (Cerovite Liquid) 15 ml GT DAILY BARBARA Stop: 03/27/20 08:59 Last Admin: 02/27/20 08:46 Dose: 15 ml Documented by: Nutritional Formula (Prosource No Carb) 30 ml GT DAILY BARBARA Stop: 03/28/20 08:59 Last Admin: 02/27/20 08:47 Dose: 30 ml Documented by: Ondansetron HCl (Zofran) 4 mg IV Q6H PRN PRN Reason: Nausea Stop: 03/26/20 23:28 Potassium Chloride (Kristi Ciel Elix) 20 meq PEG BID BARBARA Stop: 03/27/20 20:59 Last Admin: 02/27/20 20:26 Dose: 20 meq Documented by: Rivaroxaban (Xarelto) 20 mg PO DAILY [facility] Stop: 03/27/20 08:59 Last Admin: 02/27/20 08:45 Dose: 20 mg Documented by: Saccharomyces Boulardii (Florastor) 250 mg PO TID BARBARA Stop: 03/26/20 23:28 Last Admin: 02/27/20 20:22 Dose: 250 mg Documented by: Simethicone (Mylicon) 80 mg GT Q6H PRN PRN Reason: Gas Stop: 03/26/20 23:28 Sodium Biphosphate/Sodium Phosphate (Fleet Enema) 118 ml HI DAILY PRN PRN Reason: Constipation Stop: 03/26/20 23:28 Sterile Water (Tube Feeding Water Flush) 1 ea GT Q4 [facility]BARA Stop: 03/27/20 00:00 Last Admin: 02/27/20 19:42 Dose: 1 ea Documented by: Trazodone HCl (Desyrel) 50 mg GT BID [facility] Stop: 03/26/20 23:28 Last Admin: 02/27/20 20:25 Dose: 50 mg Documented by: PG Care Time/CCT Total # of Minutes Spent Total Time Spent with Patient: Total time spent is greater than 50% in coordination of care (as documented) at patient's floor/unit and/or counseling patient: Coding Level of Care Code 76518 Subseq Hosp Care Lvl 2 Diagnoses Acute hypernatremia E87.0 AMS (altered mental status) R40.0 Altered mental status type: somnolence RLL pneumonia J69.0 Aspiration pneumonia type: unspecified Pneumonia type: aspiration pneumonia History of venous thrombosis and embolism Z86.718 Acute and chronic respiratory failure J96.21 Respiratory failure complication: hypoxia GERD (gastroesophageal reflux disease) K21.9 Esophagitis presence: esophagitis presence not specified Epilepsy G40.909 Epilepsy type: unspecified Intractability: not intractable Status epilepticus: without status epilepticus Type 2 diabetes mellitus with hyperglycemia E11.65; Z79.4 Diabetes mellitus scientific investigator insulin use: with scientific investigator use History of CVA (cerebrovascular accident) Z86.73 COPD (chronic obstructive pulmonary disease) J44.9 COPD type: unspecified COPD HLD (hyperlipidemia) E78.5 Hyperlipidemia type: unspecified PVD (peripheral vascular disease) I73.9 CKD (chronic kidney disease) N18.9 Chronic kidney disease stage: unspecified stage (1) Type 2 diabetes mellitus with hyperglycemia Diabetes mellitus intermediate insulin use: with scientific investigator use Qualified Code(s): E11.65 - Type 2 diabetes mellitus with hyperglycemia; Z79.4 - sales performance analyst (current) use of insulin (2) Epilepsy Epilepsy type: unspecified Intractability: not intractable Status epilepticus: without status epilepticus Qualified Code(s): G40.909 - Epilepsy, unspecified, not intractable, without status epilepticus (3) Acute and chronic respiratory failure Respiratory failure complication: hypoxia Qualified Code(s): J96.21 - Acute and chronic respiratory failure with hypoxia (4) HLD (hyperlipidemia) Hyperlipidemia type: unspecified Qualified Code(s): E78.5 - Hyperlipidemia, unspecified (5) CKD (chronic kidney disease) Chronic kidney disease stage: unspecified stage Qualified Code(s): N18.9 - Chronic kidney disease, unspecified (6) AMS (altered mental status) Altered mental status type: somnolence Qualified Code(s): R40.0 - Somnolence (7) COPD (chronic obstructive pulmonary disease) COPD type: unspecified COPD Qualified Code(s): J44.9 - Chronic obstructive pulmonary disease, unspecified (8) RLL pneumonia Aspiration pneumonia type: unspecified Pneumonia type: aspiration pneumonia Qualified Code(s): J69.0 - Pneumonitis due to inhalation of food and vomit (9) GERD (gastroesophageal reflux disease) Esophagitis presence: esophagitis presence not specified Qualified Code(s): K21.9 - Gastro-esophageal reflux disease without esophagitis
[2020-02-27] MEDS ORDERED: PHARMACY GLYCEMIC MGMT CONSULT PRN (13:27)
[2020-02-27] MEDS ORDERED: MODERATE STRESS LEVEL ONE (13:29)
[2020-02-27] MEDS ORDERED: INSULIN HUMAN REGULAR IV BOLUS 1.5 UNITS in SYRINGE 0 ML IV ONE (13:45)
[2020-02-27] MEDS ORDERED: INSULIN GLARGINE SOLOSTAR 100 UNITS/ML 3 ML PEN SQ ONE (13:45)
--- NOTE | 2020-02-27 13:58 | Pharmacy Report ---
Glycemic Control Consultation - Date of Service February 27, 2020 - Scope Scope: Glycemic Pharmacist consulted for glycemic control and to write orders per [facility] inpatient glycemic control protocol. - Objective Weight: 69.2 kg Accuchecks BSG (last 24hrs): 02/26/20 02/26/20 02/26/20 13:30 14:42 15:13 Glucose 238 H POC Glucose 266 H 199 H 02/26/20 02/26/20 02/26/20 16:30 17:40 19:19 Glucose 138 H POC Glucose 165 H 126 H 02/26/20 02/26/20 02/27/20 20:00 23:15 00:28 Glucose 210 H POC Glucose 131 H 247 H 02/27/20 02/27/20 02/27/20 03:34 05:40 11:59 Glucose 256 H POC Glucose 291 H 364 H* Laboratory Data (last 24hrs): 02/26/20 02/26/20 02/26/20 15:13 19:19 23:15 Potassium 3.3 L 3.6 Carbon Dioxide 28 27 29 Anion Gap 6.0 5.0 6.0 Creatinine 0.95 0.88 0.94 Est Cr Clr Drug Dosing 78.5 84.7 79.3 02/27/20 02/27/20 03:34 03:34 Potassium 3.5 Carbon Dioxide 29 Anion Gap 6.0 Creatinine 0.98 0.93 Est Cr Clr Drug Dosing 76.1 80.1 - Recent Pertinent Medications Outpatient Anti-diabetic Regimen: * Lantus 35 units BID, lispro SSI, metformin 1 gm bid * A1c = 8.7 02/09/20 Risk Factors for Insulin Resistance: * Infection: pna * Diet: tube feedings - Assessment & Plan Assessment & Plan: ASSESSMENT: * Patient admitted with AMS, sepsis secondary to pneumonia, also with hyperglycemia and hypernatremia * Pharmacy consulted for glycemic management - known to service from previous admissions * Had been on insulin gtt yesterday, however discontinued last evening due to improvement in blood sugars - Pharmacy consulted today as BSGs trending back up likely due to continuation of dextrose infusion for hypernatremia and tube feedings starting * Plan to restart insulin gtt as likely will not be able to control BSGs with just SQ insulin. Plan to give dose of basal insulin for now and start insulin gtt * Until sodium normalizes/dextrose infusion dc'ed feel that insulin gtt warranted PLAN FOR INPATIENT GLYCEMIC CONTROL: * Starting IV insulin infusion per moderate stress - goal 110-200 * Basal insulin * Lantus 35 x 1 * Bolus insulin * per insulin calculator * Please note that the plan above was derived based on current level of insulin resistance and hospital stress. These recommendations are appropriate for inpatient admission only. Plan of care upon discharge will need to be reassessed to avoid potential outpatient hypo/hyperglycemia. Thank you.
[2020-02-27] MEDS: INSULIN REGULAR 250 UNITS in SODIUM CHLORIDE 0.9% 247.5 ML IV SCH (14:04)
[2020-02-27] MEDS ORDERED: INSULIN ASPART 100 UNITS/ML 3 ML PEN SC SCH ×2 (16:30→20:00)
[2020-02-27] MEDS: ATORVASTATIN 20 MG TAB GT SCH (20:23)
[2020-02-27] MEDS: CARBAMAZEPINE 100 MG CHEW TAB PO SCH (20:26)
[2020-02-28] MEDS: DEXTROSE 5% 1,000 ML IV SCH (00:19)
[2020-02-28] MEDS: TUBE FEEDING WATER FLUSH GT SCH ×6 (00:20→20:50)
[2020-02-28] MEDS: INSULIN ASPART 100 UNITS/ML 3 ML PEN SC SCH ×6 (00:20→23:53)
[2020-02-28] MEDS: VANCOMYCIN HCL 1,000 MG in SODIUM CHLORIDE 0.9% 250 ML IV SCH (00:20)
[2020-02-28] MEDS: ALBUT/IPRATROP 3MG/0.5MG NEB 3 ML VIAL INH SCH ×4 (00:37→20:06)
[2020-02-28] MEDS: CEFEPIME 2,000 MG in SYRINGE 7.5 ML IV SCH (04:01)
[2020-02-28] MEDS: BUDESONIDE 0.5 MG/2 ML VIAL (PULMICORT) INH SCH ×3 (07:06→20:06)
[2020-02-28 07:38] LABS: BUN Creatinine Ratio 32.9 (10-20); Calcium 8.2 mg/dl (8.5-10.1); Creatinine Clr Calc Pharmacy 109.9 ml/min; Est GFR (African American) 118.6; Est GFR (Non-African American) 102.4; Potassium 3.3 mmol/L (3.5-5.1)
[2020-02-28] MEDS: levETIRAcetam ORAL SOLN 100MG/ML GT SCH ×2 (07:57→21:03)
[2020-02-28] MEDS: POTASSIUM CHLORIDE 20 MEQ/15 ML UDC PEG SCH ×2 (07:57→21:03)
[2020-02-28] MEDS: AMMONIUM LACTATE 12% LOTION 225 GM BTL EXT SCH ×2 (07:57→20:49)
[2020-02-28] MEDS: ASPIRIN 81 MG CHEW GT SCH (07:58)
[2020-02-28] MEDS: TRAZODONE HCL 50 MG TAB GT SCH ×2 (07:58→21:01)
[2020-02-28] MEDS: SACCHAROMYCES BOULARDII 250 MG CAP PO SCH ×3 (07:58→20:54)
[2020-02-28] MEDS: CITALOPRAM 40 MG TAB GT SCH (07:58)
[2020-02-28] MEDS: MULTI VIT W/MINERALS LIQUID 15 ML UDP GT SCH (07:58)
[2020-02-28] MEDS: RIVAROXABAN 20 MG TAB PO SCH (07:58)
[2020-02-28] MEDS: LANSOPRAZOLE 30 MG SOLTAB GT SCH (07:59)
[2020-02-28] MEDS: PROSOURCE NO CARB 30 ML/PKT GT SCH (07:59)
[2020-02-28] MEDS: MICONAZOLE NITRATE POWDER 43 GM TOP SCH ×2 (07:59→20:49)
[2020-02-28] MEDS: carBAMazepine 200 MG TABLET PO SCH ×2 (07:59→21:02)
[2020-02-28] MEDS ORDERED: POTASSIUM CHLORIDE 20 MEQ/15 ML UDC PEG STA (08:38)
--- NOTE | 2020-02-28 10:29 | Nephrology Progress Note ---
Date of Service February 28, 2020 Assessment & Plan (1) Acute hypernatremia: Mr. Bergman has repeated episode acute hyponatremia which have resolved so with free water replacement. Unlikely to have DI as urine osmolality high urine volume has been normal. Most likely due to free water deficit because inability to take orally and only depends on PEG tube feeding. Has normal renal function. --continue free water via PEG 400 mL every 4 hours --replace potassium with potassium chloride elixir 40 milliequivalent x1 dose via PEG tube --check serum sodium daily --if sodium normalizes consider decreasing free water to 400 mL every 6 hours via PEG tube Will follow (2) AMS (altered mental status): (3) Hypertension: Admission and Anticipated Discharge Date Admission Date: February 25, 2020 Subjective was seen and examined this morning. He is awake alert however nonverbal and did not communicate. Blood pressure relatively low. Sodium improved to 151 this morning, potassium low. Review of Systems Review of Systems: Unobtainable due to cognitive status Physical Exam Constitutional: + ill appearing; no acute distress Eyes: + anicteric sclerae Respiratory: normal respiratory effort, lungs clear to auscultation Cardiovascular: RRR, no murmur, no edema Gastrointestinal (Abdomen): Percussion/Palpation: abdomen nontender Musculoskeletal: Extremities: extremities normal to inspection Skin: no rashes, warm and dry Neurologic: Aphasic, awake but nonverbal, did not communicate. Psychiatric: Could not be assessed Results & Data ([facility]) Vital Signs (Past 12 Hours) Vital Signs Temp Pulse Pulse Resp BP BP Pulse Ox 02/28/20 08:00 81 02/28/20 07:42 36.5 C 78 19 92/58 L 100 02/28/20 07:08 36.7 C 80 19 100/60 95 02/28/20 03:46 36.7 C 92 H 19 98/63 L 92 02/28/20 00:40 81 02/28/20 00:38 80 18 96 02/28/20 00:00 36.9 C 80 20 103/66 91 PG Care Time/CCT Total # of Minutes Spent Total Time Spent with Patient: Total time spent is greater than 50% in coordination of care (as documented) at patient's floor/unit and/or counseling patient: Coding Level of Care Code 52238 Subseq Hosp Care Lvl 3 Diagnoses Acute hypernatremia E87.0 AMS (altered mental status) R40.0 Altered mental status type: somnolence Hypertension I10 Hypertension type: essential hypertension (1) AMS (altered mental status) Altered mental status type: somnolence Qualified Code(s): R40.0 - Somnolence (2) Hypertension Hypertension type: essential hypertension Qualified Code(s): I10 - Essential (primary) hypertension
--- NOTE | 2020-02-28 11:26 | Pharmacy Report ---
Pharmacy Glycemic Short Note 2 - Date of Service February 28, 2020 - Glycemic Short BSG Results (Last 24 hours): 02/27/20 02/27/20 02/27/20 11:59 13:37 14:57 Glucose POC Glucose 364 H* 348 H* 320 H* 02/27/20 02/27/20 02/27/20 16:04 16:58 18:01 Glucose POC Glucose 344 H* 337 H* 326 H* 02/27/20 02/27/20 02/27/20 19:08 20:03 21:00 Glucose POC Glucose 282 H 269 H 296 H 02/27/20 02/27/20 02/28/20 22:14 22:59 00:02 Glucose POC Glucose 252 H 309 H* 245 H 02/28/20 02/28/20 02/28/20 00:58 01:58 03:03 Glucose POC Glucose 241 H 223 H 247 H 02/28/20 02/28/20 02/28/20 03:59 05:00 05:55 Glucose POC Glucose 208 H 218 H 182 H 02/28/20 02/28/20 02/28/20 06:57 07:05 08:04 Glucose 219 H POC Glucose 194 H 205 H 02/28/20 02/28/20 02/28/20 08:58 10:10 11:01 Glucose POC Glucose 207 H 185 H 171 H ASSESSMENT: * Patient admitted with AMS, sepsis secondary to pneumonia, also with hyperglycemia and hypernatremia * Pharmacy consulted for glycemic management - known to service from previous admissions * Had been on insulin gtt yesterday, however discontinued last evening due to improvement in blood sugars - Pharmacy consulted today as BSGs trending back up likely due to continuation of dextrose infusion for hypernatremia and tube feedings starting * Plan to restart insulin gtt as likely will not be able to control BSGs with just SQ insulin. Plan to give dose of basal insulin for now and start insulin gtt * Until sodium normalizes/dextrose infusion dc'ed feel that insulin gtt warranted 02/27: * Patient remains on insulin drip this morning - Na much improving / dextrose infusion now dc'ed * Tube feedings did end up starting yesterday and now are at goal / add a fix CR for tube feedings this morning * Anticipate Na to continue to improve and no longer needing dextrose infusion, therefore will schedule basal insulin today in hopes to possible transition of insulin drip * Will be conservative with basal insulin as likely BSGs will drop quickly with discontinuation of dextrose infusion PLAN FOR INPATIENT GLYCEMIC CONTROL: * Hold outpatient oral diabetes medications * Basal insulin * Lantus 70 units x 1 * Bolus insulin - utilize fixed CR of 4 while on drip / change to parameters below once dc'ed * NovoLog per scale ACHS or Q6hrs while NPO * Goal Range: Low 110 mg/dL - High 140 mg/dL * Correction Factor: 12 mg/dL/unit * Nutritional / Prandial insulin per carb ratio of 1 unit per 4 grams CHO consumed PLAN FOR DISCHARGE: * To be determined
[2020-02-28] MEDS ORDERED: VANCOMYCIN TROUGH ONE (11:30)
[2020-02-28] MEDS: cefTRIAXone SODIUM 2,000 MG in DEXTROSE 5% 50 ML IV SCH (12:05)
[2020-02-28] MEDS ORDERED: INSULIN GLARGINE SOLOSTAR 100 UNITS/ML 3 ML PEN SQ ONE ×2 (12:30)
--- NOTE | 2020-02-28 13:11 | Hospitalist Progress Note ---
Date of Service February 28, 2020 Assessment & Plan (1) Acute hypernatremia: 64yo C male with multiple medical problems, prior CVA with right hemiplegia, minimally verbal presenting from halfway with sepsis (fever, tachycardia, tachypnea, hypoxia and leukocytosis) most likely secondary to RLL PNA/Aspiration. Patient with severe hypernatremia and hyperglycemia. Ph=272 - corrects to 173 for his hyperglycemia. Free water deficit = 9.4L. Patient has presented with severe hypernatremia in the past, last admission Na was 156 on presentation. Na was appropriately corrected and was 144 on discharge on 02/13/20. Patient clinically dry on exam - received 1L NSS in ER. Na down to 151 today continue free water flushes 400mL q4 if Na stabilizes then decrease free water to 400 q 6 stop D5W today urine specific gravity is up, thus urine concentrated which rules out DI, plus he is not making much urine repeat BMP in the morning (2) AMS (altered mental status): Patient presents with lethargy, metabolic encephalopathy in setting of severe hypernatremia, sepsis secondary to PNA. Patient has a poor functional baseline. -Correction of underlying medical problems -Frequent orientation to avoid delirium difficult to determine mental state, non-verbal, no signs of agitation patient more alert, making responses today (3) RLL pneumonia: Suspect aspiration PNA with sepsis - fever/tachycardia/tachypnea/hypoxia and neutrophil predominant leukocytosis, RLL opacity. Influenza and SARS-CoV-2 negative. Patient with history of aspiration PNA. MRSA nasal screen positive in the past -Follow blood cultures sent from ER: no growth to date -Supplemental O2 as needed to maintain saturation >90% -taper down antibiotics to Rocephin today, complete 7 days total, admitted 02/24 -Robitussin PRN cough -Aspiration precautions (4) History of venous thrombosis and embolism: Patient with remote history of DVT and PE in 2018. No bleeding. -Continue Xarelto 20mg po daily (5) Acute and chronic respiratory failure: History of COPD on 2L NC qHS presenting with tachypnea, hypoxia. Presently with no respiratory distress. Adequate oxygenation on 10L NRB. Lungs diminished in bases but no rhonchi/rales/wheezes. -Continue Ipratropium/Albuterol -Continue Budesonide -Supplemental O2 as needed to maintain saturations 90% (6) GERD (gastroesophageal reflux disease): Chronic -Continue Omeprazole 20mg per PEG daily (7) Epilepsy: Chronic. Stable. No seizure reported -Continue Keppra and Tegretol (8) Type 2 diabetes mellitus with hyperglycemia: hyperglycemia 02/26 due to tube feeds consult pharmacy for glycemic management insulin infusion yesterday and today, plan to transition to basal bolus insulin this evening (9) History of CVA (cerebrovascular accident): Patient with right sided hemiparesis, aphasia, s/p PEG tube. Full assist, resides in a halfway -Continue ASA, Atorvastatin, Xarelto -Continue Aspiration precautions -Continue skin care (10) COPD (chronic obstructive pulmonary disease): As above, patient with chronic respiratory failure -Continue home inhalers -O2 as needed (11) HLD (hyperlipidemia): Chronic. Stable -Continue Atorvastatin (12) PVD (peripheral vascular disease): Chronic. Stable -Continue ASA and Atorvastatin (13) CKD (chronic kidney disease): Cr at baseline -Avoid nephrotoxic agents -Renal dosing -Monitor BUN/Cr/electrolytes and UOP F/E/N - TF and free water flushes Ppx - Xarelto Code - DNR/DNI Dispo - Admit to PCU Admission and Anticipated Discharge Date Admission Date: February 25, 2020 Subjective patient more alert today, moving his left arm more, eyes are open making some sounds labs show that Na improved to 151, K low at 3.3, renal function intact sugars are better controlled on insulin infusion discussed with Dr. Fraire, appreciate her assistance/recommendations Review of Systems Review of Systems: Unobtainable due to cognitive status Physical Exam Constitutional: well developed, + thin, + frail appearing and + lethargic Eyes: PERRL, conjunctivae normal, anicteric sclerae ENMT: external ear and nose normal, oropharynx normal Neck: trachea midline, no thyromegaly Respiratory: normal respiratory effort, lungs clear to auscultation Cardiovascular: RRR, no murmur, no edema Gastrointestinal (Abdomen): normal bowel sounds, soft, nontender, no hepatosplenomegaly Musculoskeletal: Head/Neck/Chest: normocephalic and head atraumatic Extremities: + abnormal strength (generalized weakness, hemiplegia) and + muscle atrophy; no cyanosis and no clubbing Skin: no rashes, warm and dry Neurologic: CN's II-XI intact bilaterally and + focal motor deficit; + does not move all extremities Speech / Cognition: + expressive aphasia and + abnormal cognition Motor/Sensory: no tremor Psychiatric: Orientation: alert; + not oriented x 3 Lymphatic: no cervical or axillary lymphadenopathy Results & Data Results & Data ([facility]) Vital Signs (Past 12 Hours) Vital Signs Temp Pulse Pulse Resp BP BP Pulse Ox 02/28/20 11:53 36.8 C 85 16 132/64 98 02/28/20 08:00 81 02/28/20 07:42 36.5 C 78 19 92/58 L 100 02/28/20 07:08 36.7 C 80 19 100/60 95 02/28/20 03:46 36.7 C 92 H 19 98/63 L 92 Laboratory Results Laboratory Results - last 24 hr 02/27/20 02/27/20 02/27/20 13:37 14:57 16:04 Sodium Potassium Chloride Carbon Dioxide Anion Gap BUN Creatinine Est Cr Clr Drug Dosing Est GFR ( Amer) Est GFR (Non-Af Amer) BUN/Creatinine Ratio Glucose POC Glucose 348 H* 320 H* 344 H* Calcium 02/27/20 02/27/20 02/27/20 16:58 18:01 19:08 Sodium Potassium Chloride Carbon Dioxide Anion Gap BUN Creatinine Est Cr Clr Drug Dosing Est GFR ( Amer) Est GFR (Non-Af Amer) BUN/Creatinine Ratio Glucose POC Glucose 337 H* 326 H* 282 H Calcium 02/27/20 02/27/20 02/27/20 20:03 21:00 22:14 Sodium Potassium Chloride Carbon Dioxide Anion Gap BUN Creatinine Est Cr Clr Drug Dosing Est GFR ( Amer) Est GFR (Non-Af Amer) BUN/Creatinine Ratio Glucose POC Glucose 269 H 296 H 252 H Calcium 02/27/20 02/28/20 02/28/20 22:59 00:02 00:58 Sodium Potassium Chloride Carbon Dioxide Anion Gap BUN Creatinine Est Cr Clr Drug Dosing Est GFR ( Amer) Est GFR (Non-Af Amer) BUN/Creatinine Ratio Glucose POC Glucose 309 H* 245 H 241 H Calcium 02/28/20 02/28/20 02/28/20 01:58 03:03 03:59 Sodium Potassium Chloride Carbon Dioxide Anion Gap BUN Creatinine Est Cr Clr Drug Dosing Est GFR ( Amer) Est GFR (Non-Af Amer) BUN/Creatinine Ratio Glucose POC Glucose 223 H 247 H 208 H Calcium 02/28/20 02/28/20 02/28/20 05:00 05:55 06:57 Sodium 151 H D Potassium 3.3 L Chloride 122 H Carbon Dioxide 27 Anion Gap 2.0 L BUN 22 H Creatinine 0.68 Est Cr Clr Drug Dosing 109.9 Est GFR ( Amer) 118.6 Est GFR (Non-Af Amer) 102.4 BUN/Creatinine Ratio 32.9 H Glucose 219 H POC Glucose 218 H 182 H Calcium 8.2 L 02/28/20 02/28/20 02/28/20 07:05 08:04 08:58 Sodium Potassium Chloride Carbon Dioxide Anion Gap BUN Creatinine Est Cr Clr Drug Dosing Est GFR ( Amer) Est GFR (Non-Af Amer) BUN/Creatinine Ratio Glucose POC Glucose 194 H 205 H 207 H Calcium 02/28/20 02/28/20 02/28/20 10:10 11:01 12:00 Sodium Potassium Chloride Carbon Dioxide Anion Gap BUN Creatinine Est Cr Clr Drug Dosing Est GFR ( Amer) Est GFR (Non-Af Amer) BUN/Creatinine Ratio Glucose POC Glucose 185 H 171 H 202 H Calcium Medications Administered Current Inpatient Medications Acetaminophen (Tylenol Soln) 650 mg GT Q4H PRN PRN Reason: Pain or Fever Stop: 03/26/20 23:37 Albuterol (Duoneb) 3 ml INH Q6R [facility] Stop: 03/27/20 00:59 Last Admin: 02/28/20 13:18 Dose: 3 ml Documented by: Aspirin (Aspirin Chew) 81 mg GT DAILY [facility] Stop: 03/27/20 08:59 Last Admin: 02/28/20 07:58 Dose: 81 mg Documented by: Atorvastatin Calcium (Lipitor) 20 mg GT HS [facility] Stop: 03/26/20 23:28 Last Admin: 02/27/20 20:23 Dose: 20 mg Documented by: Bisacodyl (Dulcolax) 10 mg [place] UD PRN PRN Reason: Constipation Stop: 03/26/20 23:28 Budesonide (Pulmicort Respules) 0.5 mg INH TIDR [facility] Stop: 03/27/20 06:59 Last Admin: 02/28/20 13:18 Dose: 0.5 mg Documented by: Carbamazepine (Tegretol) 100 mg PO HS [facility] Stop: 03/26/20 23:28 Last Admin: 02/27/20 20:26 Dose: 100 mg Documented by: Carbamazepine (Tegretol) 400 mg PO BID [facility] Stop: 03/26/20 23:28 Last Admin: 02/28/20 07:59 Dose: 400 mg Documented by: Citalopram Hydrobromide (Celexa) 40 mg GT DAILY [facility] Stop: 03/27/20 08:59 Last Admin: 02/28/20 07:58 Dose: 40 mg Documented by: Dextrose (Dextrose 50%) 25 - 50 ml IV UD PRN; Protocol PRN Reason: Hypoglycemia Protocol Stop: 03/26/20 23:28 Docusate Sodium (Colace) 100 mg GT Q3D [facility] Stop: 03/28/20 08:59 Last Admin: 02/27/20 09:08 Dose: 100 mg Documented by: Enteral Nutritional Formula (Peptamen 1.5 Aron) 1,000 ml PEG .CONTINUOUS [facility]; Protocol Stop: 03/27/20 12:59 Last Admin: 02/27/20 12:02 Dose: 1,000 ml Documented by: Glucagon (Glucagen) 1 mg SQ UD PRN; Protocol PRN Reason: Hypoglycemia Protocol Stop: 03/26/20 23:28 Glucose (Dex4 Glucose) 4 - 8 tabs PO UD PRN; Protocol PRN Reason: Hypoglycemia Protocol Stop: 03/26/20 23:28 Glucose (Glucose 40%) 15 - 30 gm PO UD PRN; Protocol PRN Reason: Hypoglycemia Protocol Stop: 03/26/20 23:28 Guaifenesin (Robitussin Sugar Free Syrup) 200 mg GT Q6H PRN PRN Reason: Cough Stop: 03/26/20 23:28 Insulin Human Regular 250 (units/ Sodium Chloride) 250 mls @ 10.9 mls/hr IV .[id number] [facility]; Protocol Stop: 03/28/20 13:44 Last Titration: 02/28/20 12:00 Dose: 10.9 units/hr, 10.9 mls/hr Documented by: Ceftriaxone Sodium 2,000 mg/ (Dextrose) 70 mls @ 100 mls/hr IV Q24H [facility]; Protocol Stop: 03/06/20 11:59 Last Admin: 02/28/20 12:05 Dose: 100 mls/hr Documented by: Insulin Aspart (Novolog Flexpen) 0 units SC Q6 [facility] Stop: 03/29/20 00:00 Last Admin: 02/28/20 12:12 Dose: 11 units Documented by: Lactic Acid (Amlactin) 1 gm EXT BID [facility] Stop: 03/27/20 08:59 Last Admin: 02/28/20 07:57 Dose: 1 gm Documented by: Lansoprazole (Prevacid) 30 mg GT DAILY [facility] Stop: 03/27/20 08:59 Last Admin: 02/28/20 07:59 Dose: 30 mg Documented by: Levetiracetam (Keppra) 1,000 mg GT BID [facility] Stop: 03/26/20 23:28 Last Admin: 02/28/20 07:57 Dose: 1,000 mg Documented by: Magnesium Hydroxide (Milk Of Magnesia) 30 ml GT DAILY PRN PRN Reason: Constipation Stop: 03/26/20 23:28 Miconazole Nitrate (Desenex) 1 appln TOP BID [facility] Stop: 03/26/20 23:28 Last Admin: 02/28/20 07:59 Dose: 1 appln Documented by: Miscellaneous (Carbohydrates For Hypoglycemia) 15 - 30 gm PO UD PRN PRN Reason: Hypoglycemia Protocol Stop: 03/26/20 23:28 Miscellaneous Information (Consult Glycemic Management Pharmacy) 1 ea N/A UD PRN PRN Reason: Consult Stop: 03/28/20 13:26 Multivitamins/Minerals (Cerovite Liquid) 15 ml GT DAILY [facility] Stop: 03/27/20 08:59 Last Admin: 02/28/20 07:58 Dose: 15 ml Documented by: Nutritional Formula (Prosource No Carb) 30 ml GT DAILY [facility] Stop: 03/28/20 08:59 Last Admin: 02/28/20 07:59 Dose: 30 ml Documented by: Ondansetron HCl (Zofran) 4 mg IV Q6H PRN PRN Reason: Nausea Stop: 03/26/20 23:28 Potassium Chloride (Kristi Ciel Elix) 20 meq PEG BID [facility] Stop: 03/27/20 20:59 Last Admin: 02/28/20 07:57 Dose: 20 meq Documented by: Rivaroxaban (Xarelto) 20 mg PO DAILY [facility] Stop: 03/27/20 08:59 Last Admin: 02/28/20 07:58 Dose: 20 mg Documented by: Saccharomyces Boulardii (Florastor) 250 mg PO TID [facility] Stop: 03/26/20 23:28 Last Admin: 02/28/20 07:58 Dose: 250 mg Documented by: Simethicone (Mylicon) 80 mg GT Q6H PRN PRN Reason: Gas Stop: 03/26/20 23:28 Sodium Biphosphate/Sodium Phosphate (Fleet Enema) 118 ml [place] DAILY PRN PRN Reason: Constipation Stop: 03/26/20 23:28 Sterile Water (Tube Feeding Water Flush) 1 ea GT Q4 [facility] Stop: 03/27/20 00:00 Last Admin: 02/28/20 12:05 Dose: 1 ea Documented by: Trazodone HCl (Desyrel) 50 mg GT BID [facility] Stop: 03/26/20 23:28 Last Admin: 02/28/20 07:58 Dose: 50 mg Documented by: PG Care Time/CCT Total # of Minutes Spent Total Time Spent with Patient: Total time spent is greater than 50% in coordination of care (as documented) at patient's floor/unit and/or counseling patient: Coding Level of Care Code 80761 Subseq Hosp Care Lvl 2 Diagnoses Acute hypernatremia E87.0 AMS (altered mental status) R40.0 Altered mental status type: somnolence RLL pneumonia J69.0 Aspiration pneumonia type: unspecified Pneumonia type: aspiration pneumonia History of venous thrombosis and embolism Z86.718 Acute and chronic respiratory failure J96.21 Respiratory failure complication: hypoxia GERD (gastroesophageal reflux disease) K21.9 Esophagitis presence: esophagitis presence not specified Epilepsy G40.909 Epilepsy type: unspecified Intractability: not intractable Status epilepticus: without status epilepticus Type 2 diabetes mellitus with hyperglycemia E11.65; Z79.4 Diabetes mellitus jail insulin use: with jail use History of CVA (cerebrovascular accident) Z86.73 COPD (chronic obstructive pulmonary disease) J44.9 COPD type: unspecified COPD HLD (hyperlipidemia) E78.5 Hyperlipidemia type: unspecified PVD (peripheral vascular disease) I73.9 CKD (chronic kidney disease) N18.9 Chronic kidney disease stage: unspecified stage (1) Type 2 diabetes mellitus with hyperglycemia Diabetes mellitus long term care social worker insulin use: with long term care social worker use Qualified Code(s): E11.65 - Type 2 diabetes mellitus with hyperglycemia; 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 (2) Epilepsy Epilepsy type: unspecified Intractability: not intractable Status epilepticus: without status epilepticus Qualified Code(s): G40.909 - Epilepsy, unspecified, not intractable, without status epilepticus (3) Acute and chronic respiratory failure Respiratory failure complication: hypoxia Qualified Code(s): J96.21 - Acute and chronic respiratory failure with hypoxia (4) HLD (hyperlipidemia) Hyperlipidemia type: unspecified Qualified Code(s): E78.5 - Hyperlipidemia, unspecified (5) CKD (chronic kidney disease) Chronic kidney disease stage: unspecified stage Qualified Code(s): N18.9 - Chronic kidney disease, unspecified (6) AMS (altered mental status) Altered mental status type: somnolence Qualified Code(s): R40.0 - Somnolence (7) COPD (chronic obstructive pulmonary disease) COPD type: unspecified COPD Qualified Code(s): J44.9 - Chronic obstructive pulmonary disease, unspecified (8) RLL pneumonia Aspiration pneumonia type: unspecified Pneumonia type: aspiration pneumonia Qualified Code(s): J69.0 - Pneumonitis due to inhalation of food and vomit (9) GERD (gastroesophageal reflux disease) Esophagitis presence: esophagitis presence not specified Qualified Code(s): K21.9 - Gastro-esophageal reflux disease without esophagitis
[2020-02-28] MEDS: PEPTAMEN 1.5 CAL 1,000 ML BAG PEG SCH (17:44)
[2020-02-28] MEDS ORDERED: INSULIN ASPART 100 UNITS/ML 3 ML PEN SC ONE (19:45)
[2020-02-28] MEDS: ATORVASTATIN 20 MG TAB GT SCH (20:53)
[2020-02-28] MEDS: CARBAMAZEPINE 100 MG CHEW TAB PO SCH (20:53)
[2020-02-28] MEDS: INSULIN REGULAR 250 UNITS in SODIUM CHLORIDE 0.9% 247.5 ML IV SCH (23:14)
[2020-02-29] MEDS: ALBUT/IPRATROP 3MG/0.5MG NEB 3 ML VIAL INH SCH ×4 (00:55→19:03)
[2020-02-29] MEDS: TUBE FEEDING WATER FLUSH GT SCH ×6 (04:00→21:04)
[2020-02-29] MEDS: INSULIN ASPART 100 UNITS/ML 3 ML PEN SC SCH ×4 (06:04→21:21)
[2020-02-29] MEDS: BUDESONIDE 0.5 MG/2 ML VIAL (PULMICORT) INH SCH ×3 (06:54→19:03)
[2020-02-29 07:29] LABS: BUN Creatinine Ratio 23.2 (10-20); Calcium 8.1 mg/dl (8.5-10.1); Creatinine Clr Calc Pharmacy 118.7 ml/min; Est GFR (African American) 122.4; Est GFR (Non-African American) 105.6
[2020-02-29] MEDS: AMMONIUM LACTATE 12% LOTION 225 GM BTL EXT SCH ×2 (08:17→21:04)
[2020-02-29] MEDS: ASPIRIN 81 MG CHEW GT SCH (08:17)
[2020-02-29] MEDS: CITALOPRAM 40 MG TAB GT SCH (08:18)
[2020-02-29] MEDS: MICONAZOLE NITRATE POWDER 43 GM TOP SCH ×2 (08:18→21:04)
[2020-02-29] MEDS: MULTI VIT W/MINERALS LIQUID 15 ML UDP GT SCH (08:18)
[2020-02-29] MEDS: TRAZODONE HCL 50 MG TAB GT SCH ×2 (08:18→21:08)
[2020-02-29] MEDS: SACCHAROMYCES BOULARDII 250 MG CAP PO SCH ×3 (08:19→21:08)
[2020-02-29] MEDS: carBAMazepine 200 MG TABLET PO SCH ×2 (08:19→21:08)
[2020-02-29] MEDS: levETIRAcetam ORAL SOLN 100MG/ML GT SCH ×2 (08:20→21:08)
[2020-02-29] MEDS: POTASSIUM CHLORIDE 20 MEQ/15 ML UDC PEG SCH ×2 (08:20→21:08)
[2020-02-29] MEDS: LANSOPRAZOLE 30 MG SOLTAB GT SCH (08:22)
[2020-02-29] MEDS: PROSOURCE NO CARB 30 ML/PKT GT SCH (08:23)
[2020-02-29] MEDS: RIVAROXABAN 20 MG TAB PO SCH (08:23)
[2020-02-29] MEDS ORDERED: INSULIN GLARGINE SOLOSTAR 100 UNITS/ML 3 ML PEN SQ SCH ×2 (09:00→21:00)
--- NOTE | 2020-02-29 09:35 | Nephrology Progress Note ---
Date of Service February 29, 2020 Assessment & Plan (1) Acute hypernatremia: Mr. Bergman has h/o repeated episode acute hyponatremia which have resolved so with free water replacement. Unlikely to have DI as urine osmolality high urine volume has been normal. Most likely due to free water deficit because inability to take orally and only depends on PEG tube feeding. Has normal renal function. --continue free water via PEG 400 mL every 4 hours --check serum sodium daily --if sodium normalizes consider decreasing free water to 400 mL every 6 hours via PEG tube on discharge , but continue on 400 male every 4 hours for now as sodium continues to be around 150s. Will sign off, please contact if any further assistance needed. Thank you for the consultation. (2) AMS (altered mental status): (3) Hypertension: Admission and Anticipated Discharge Date Admission Date: February 25, 2020 Subjective Mr. Bergman was seen and examined this morning. He remained minimally responsive, eyes closed and aphasic, did not communicate. Seems comfortable, no distress, vital signs stable. Sodium improved but still elevated at 150, potassium normalized. Review of Systems Review of Systems: Unobtainable due to cognitive status Physical Exam Constitutional: + ill appearing; no acute distress Neck: Thyroid: thyroid nontender Respiratory: normal respiratory effort, lungs clear to auscultation Cardiovascular: RRR, no murmur, no edema Musculoskeletal: Extremities: extremities normal to inspection Gait: normal gait Skin: no rashes, warm and dry Results & Data ([facility]) Vital Signs (Past 12 Hours) Vital Signs Temp Pulse Pulse Resp BP BP Pulse Ox 02/29/20 07:48 36.8 C 85 16 111/72 93 02/29/20 06:54 77 16 93 02/29/20 04:37 36.8 C 80 18 98/62 L 94 02/29/20 00:57 88 20 92 02/29/20 00:13 36.4 C L 91 H 18 100/61 92 02/28/20 22:33 84 PG Care Time/CCT Total # of Minutes Spent Total Time Spent with Patient: Total time spent is greater than 50% in coordination of care (as documented) at patient's floor/unit and/or counseling patient: Coding Level of Care Code 33975 Subseq Hosp Care Lvl 2 Diagnoses Acute hypernatremia E87.0 AMS (altered mental status) R40.0 Altered mental status type: somnolence Hypertension I10 Hypertension type: essential hypertension (1) AMS (altered mental status) Altered mental status type: somnolence Qualified Code(s): R40.0 - Somnolence (2) Hypertension Hypertension type: essential hypertension Qualified Code(s): I10 - Essential (primary) hypertension
--- NOTE | 2020-02-29 11:31 | Hospitalist Progress Note ---
Date of Service February 29, 2020 Assessment & Plan (1) Acute hypernatremia: 64yo C male with multiple medical problems, prior CVA with right hemiplegia, minimally verbal presenting from [facility] with sepsis (fever, tachycardia, tachypnea, hypoxia and leukocytosis) most likely secondary to RLL PNA/Aspiration. Patient with severe hypernatremia and hyperglycemia. Fp=306 - corrects to 173 for his hyperglycemia. Free water deficit = 9.4L. Patient has presented with severe hypernatremia in the past, last admission Na was 156 on presentation. Na was appropriately corrected and was 144 on discharge on 02/13/20. Patient clinically dry on exam - received 1L NSS in ER. Na down to 150 today continue free water flushes 400mL q4 if Na stabilizes then decrease free water to 400 q 6 Stopped D5W on 02/27. urine specific gravity is up, thus urine concentrated which rules out DI, plus he is not making much urine Repeat BMP in the morning (2) AMS (altered mental status): Patient presents with lethargy, metabolic encephalopathy in setting of severe hypernatremia, sepsis secondary to PNA. Patient has a poor functional baseline. -Correction of underlying medical problems -Frequent orientation to avoid delirium difficult to determine mental state, non-verbal, no signs of agitation - Stable today. No verbal response, but does move his arm somewhat to stimulus. Not following commands. (3) RLL pneumonia: Suspect aspiration PNA with sepsis - fever/tachycardia/tachypnea/hypoxia and neutrophil predominant leukocytosis, RLL opacity. Influenza and SARS-CoV-2 negative. Patient with history of aspiration PNA. MRSA nasal screen positive in the past -Follow blood cultures sent from ER: no growth to date -Supplemental O2 as needed to maintain saturation >90% -taper down antibiotics to Rocephin on 02/27, complete 7 days total, admitted 02/24 -Robitussin PRN cough -Aspiration precautions (4) History of venous thrombosis and embolism: Patient with remote history of DVT and PE in 2018. No bleeding. -Continue Xarelto 20mg po daily (5) Acute and chronic respiratory failure: History of COPD on 2L NC qHS presenting with tachypnea, hypoxia. Presently with no respiratory distress. Adequate oxygenation on 10L NRB. Lungs diminished in bases but no rhonchi/rales/wheezes. -Continue Ipratropium/Albuterol -Continue Budesonide -Supplemental O2 as needed to maintain saturations 90% (6) GERD (gastroesophageal reflux disease): Chronic -Continue Omeprazole 20mg per PEG daily (7) Epilepsy: Chronic. Stable. No seizure reported -Continue Keppra and Tegretol (8) Type 2 diabetes mellitus with hyperglycemia: hyperglycemia 02/26 due to tube feeds consult pharmacy for glycemic management insulin infusion until 02/27, Now on basal-bolus. Sugars have been 95-225 in the last 24 hours. (9) History of CVA (cerebrovascular accident): Patient with right sided hemiparesis, aphasia, s/p PEG tube. Full assist, resides in a [facility] -Continue ASA, Atorvastatin, Xarelto -Continue Aspiration precautions -Continue skin care (10) COPD (chronic obstructive pulmonary disease): As above, patient with chronic respiratory failure -Continue home inhalers -O2 as needed (11) HLD (hyperlipidemia): Chronic. Stable -Continue Atorvastatin (12) PVD (peripheral vascular disease): Chronic. Stable -Continue ASA and Atorvastatin (13) CKD (chronic kidney disease): Cr at baseline -Avoid nephrotoxic agents -Renal dosing -Monitor BUN/Cr/electrolytes and UOP F/E/N - TF and free water flushes Ppx - Xarelto Code - DNR/DNI Dispo - Admit to PCU Admission and Anticipated Discharge Date Admission Date: February 25, 2020 Subjective Opens eyes and looks at me, but no verbal response to questions or commands. Review of Systems Review of Systems: Unobtainable due to cognitive status Physical Exam Constitutional: WD/WN, vitals as above + acute distress and + physical bain itations Eyes: EOM intact bilaterally; no conjunctival abnormality ENMT: external ear and nose normal, oropharynx normal Neck: trachea midline, no thyromegaly normal visual inspection Respiratory: normal respiratory effort, lungs clear to auscultation no respiratory distress Cardiovascular: RRR, no murmur, no edema Gastrointestinal (Abdomen): Inspection/Auscultation: abdomen normal to in spection; abdomen not distended Musculoskeletal: Head/Neck/Chest: normocephalic and head atraumatic Skin: no rashes, warm and dry Neurologic: awake; + does not move all extremities Psychiatric: Orientation: alert; + not oriented to person Results & Data Results & Data ([place]) Vital Signs (Past 12 Hours) Vital Signs Temp Pulse Resp BP BP Pulse Ox 02/29/20 10:54 36.8 C 72 18 104/71 97 02/29/20 07:48 36.8 C 85 16 111/72 93 02/29/20 06:54 77 16 93 02/29/20 04:37 36.8 C 80 18 98/62 L 94 02/29/20 00:57 88 20 92 02/29/20 00:13 36.4 C L 91 H 18 100/61 92 PG Care Time/CCT Total # of Minutes Spent Total Time Spent with Patient: Total time spent is greater than 50% in coordination of care (as documented) at patient's floor/unit and/or counseling patient: Coding Level of Care Code 53949 Subseq Hosp Care Lvl 3 Diagnoses Acute hypernatremia E87.0 AMS (altered mental status) R40.0 Altered mental status type: somnolence RLL pneumonia J69.0 Aspiration pneumonia type: unspecified Pneumonia type: aspiration pneumonia History of venous thrombosis and embolism Z86.718 Acute and chronic respiratory failure J96.21 Respiratory failure complication: hypoxia GERD (gastroesophageal reflux disease) K21.9 Esophagitis presence: esophagitis presence not specified Epilepsy G40.909 Epilepsy type: unspecified Intractability: not intractable Status epilepticus: without status epilepticus Type 2 diabetes mellitus with hyperglycemia E11.65; Z79.4 Diabetes mellitus [facility] insulin use: with terminal manager use History of CVA (cerebrovascular accident) Z86.73 COPD (chronic obstructive pulmonary disease) J44.9 COPD type: unspecified COPD HLD (hyperlipidemia) E78.5 Hyperlipidemia type: unspecified PVD (peripheral vascular disease) I73.9 CKD (chronic kidney disease) N18.9 Chronic kidney disease stage: unspecified stage (1) AMS (altered mental status) Altered mental status type: somnolence Qualified Code(s): R40.0 - Somnolence (2) RLL pneumonia Aspiration pneumonia type: unspecified Pneumonia type: aspiration pneumonia Qualified Code(s): J69.0 - Pneumonitis due to inhalation of food and vomit (3) Acute and chronic respiratory failure Respiratory failure complication: hypoxia Qualified Code(s): J96.21 - Acute and chronic respiratory failure with hypoxia (4) GERD (gastroesophageal reflux disease) Esophagitis presence: esophagitis presence not specified Qualified Code(s): K21.9 - Gastro-esophageal reflux disease without esophagitis (5) Epilepsy Epilepsy type: unspecified Intractability: not intractable Status epilepticus: without status epilepticus Qualified Code(s): G40.909 - Epilepsy, unspecified, not intractable, without status epilepticus (6) Type 2 diabetes mellitus with hyperglycemia Diabetes mellitus [facility] insulin use: with [facility] use Qualified Code(s): E11.65 - Type 2 diabetes mellitus with hyperglycemia; Z79.4 - skilled nursing (current) use of insulin (7) COPD (chronic obstructive pulmonary disease) COPD type: unspecified COPD Qualified Code(s): J44.9 - Chronic obstructive pulmonary disease, unspecified (8) HLD (hyperlipidemia) Hyperlipidemia type: unspecified Qualified Code(s): E78.5 - Hyperlipidemia, unspecified (9) CKD (chronic kidney disease) Chronic kidney disease stage: unspecified stage Qualified Code(s): N18.9 - Chronic kidney disease, unspecified
[2020-02-29] MEDS: cefTRIAXone SODIUM 2,000 MG in DEXTROSE 5% 50 ML IV SCH (12:23)
--- NOTE | 2020-02-29 13:26 | Pharmacy Report ---
Pharmacy Glycemic Short Note 2 - Date of Service February 29, 2020 - Glycemic Short BSG Results (Last 24 hours): 02/28/20 02/28/20 02/28/20 13:21 14:06 15:10 Glucose POC Glucose 131 H 128 H 112 H 02/28/20 02/28/20 02/28/20 16:01 17:13 19:17 Glucose POC Glucose 102 H 95 128 H 02/28/20 02/29/20 02/29/20 23:51 06:02 06:13 Glucose 187 H POC Glucose 219 H 166 H 02/29/20 10:47 Glucose POC Glucose 224 H Outpatient Anti-diabetic Regimen: * Lantus 35 units BID, lispro SSI, metformin 1 gm bid (also on Osmolite via PEG at 50 cc/hr) * A1c = 8.7 02/09/20 ASSESSMENT: * Patient admitted with AMS, sepsis secondary to pneumonia, also with hyperglycemia and hypernatremia * Pharmacy consulted for glycemic management - known to service from previous admissions * Had been on insulin gtt yesterday, however discontinued last evening due to improvement in blood sugars - Pharmacy consulted today as BSGs trending back up likely due to continuation of dextrose infusion for hypernatremia and tube feedings starting * Plan to restart insulin gtt as likely will not be able to control BSGs with just SQ insulin. Plan to give dose of basal insulin for now and start insulin gtt * Until sodium normalizes/dextrose infusion dc'ed feel that insulin gtt warranted 02/27: * Patient remains on insulin drip this morning - Na much improving / dextrose infusion now dc'ed * Tube feedings did end up starting yesterday and now are at goal / add a fix CR for tube feedings this morning * Anticipate Na to continue to improve and no longer needing dextrose infusion, therefore will schedule basal insulin today in hopes to possible transition of insulin drip * Will be conservative with basal insulin as likely BSGs will drop quickly with discontinuation of dextrose infusion 02/28 * Mr. Bergman received 126 units of insulin yesterday * Peptamen continues at goal rate of 50 cc/hr * Basal dose of 70 units per day seems reasonable; however, current tube feeding coverage does not seem to be lasting long enough with Novolog dosed q6 -> will provide more frequently to adequately cover CHOs PLAN FOR INPATIENT GLYCEMIC CONTROL: * Hold outpatient oral diabetes medications * Basal insulin * Lantus 35 units BID * Bolus insulin - change to q4h and tighten CF * NovoLog per scale q4h to cover continuous tube feeds * Goal Range: Low 110 mg/dL - High 140 mg/dL * Correction Factor: 10 mg/dL/unit * Nutritional / Prandial insulin per carb ratio of 1 unit per 4 grams CHO consumed PLAN FOR DISCHARGE: * To be determined
[2020-02-29] MEDS: ATORVASTATIN 20 MG TAB GT SCH (21:08)
[2020-02-29] MEDS: CARBAMAZEPINE 100 MG CHEW TAB PO SCH (21:08)
[2020-03-01] MEDS: INSULIN ASPART 100 UNITS/ML 3 ML PEN SC SCH ×6 (00:22→21:58)
[2020-03-01] MEDS: TUBE FEEDING WATER FLUSH GT SCH ×5 (00:23→17:35)
[2020-03-01] MEDS: ALBUT/IPRATROP 3MG/0.5MG NEB 3 ML VIAL INH SCH ×4 (00:39→19:28)
[2020-03-01 06:54] LABS: Hematocrit (blood only) 36.8 % (42-52); Hemoglobin 11.6 g/dL (14.0-18.0); Mean Corpuscular Hgb Conc 31.5 g/dL (32-36); Mean Corpuscular Volume 101.7 fL (80-100); Mean Platelet Volume 12.6 fL (7.4-10.4); Platelet Count 121 K/uL (130-400); Platelet Estimate Decreased (Normal); RDW Standard Deviation 51.9 fL (36.4-46.3); Red Blood Count 3.62 M/uL (4.7-6.1); White Blood Count 7.51 K/uL (4.8-10.8)
[2020-03-01] MEDS: BUDESONIDE 0.5 MG/2 ML VIAL (PULMICORT) INH SCH ×4 (06:56→19:27)
[2020-03-01 07:08] LABS: BUN Creatinine Ratio 17.6 (10-20); Calcium 8.5 mg/dl (8.5-10.1); Creatinine Clr Calc Pharmacy 128.5 ml/min; Est GFR (African American) 125.8; Est GFR (Non-African American) 108.5; Magnesium 1.8 mg/dl (1.8-2.4); Potassium 4.1 mmol/L (3.5-5.1)
[2020-03-01 07:09] LABS: Phosphorus 2.3 mg/dl (2.5-4.9)
[2020-03-01] MEDS: LANSOPRAZOLE 30 MG SOLTAB GT SCH (09:09)
[2020-03-01] MEDS: levETIRAcetam ORAL SOLN 100MG/ML GT SCH ×2 (09:09→22:42)
[2020-03-01] MEDS: POTASSIUM CHLORIDE 20 MEQ/15 ML UDC PEG SCH ×2 (09:09→22:42)
[2020-03-01] MEDS: SACCHAROMYCES BOULARDII 250 MG CAP PO SCH ×3 (09:09→22:37)
[2020-03-01] MEDS: DOCUSATE SODIUM SYRUP 100 MG/10 ML UDC GT SCH (09:09)
[2020-03-01] MEDS: CITALOPRAM 40 MG TAB GT SCH (09:10)
[2020-03-01] MEDS: TRAZODONE HCL 50 MG TAB GT SCH ×2 (09:10→22:37)
[2020-03-01] MEDS: ASPIRIN 81 MG CHEW GT SCH (09:10)
[2020-03-01] MEDS: RIVAROXABAN 20 MG TAB PO SCH (09:10)
[2020-03-01] MEDS: carBAMazepine 200 MG TABLET PO SCH ×2 (09:10→22:39)
[2020-03-01] MEDS: MICONAZOLE NITRATE POWDER 43 GM TOP SCH ×2 (09:11→22:56)
[2020-03-01] MEDS: AMMONIUM LACTATE 12% LOTION 225 GM BTL EXT SCH ×2 (09:11→22:56)
[2020-03-01] MEDS: MULTI VIT W/MINERALS LIQUID 15 ML UDP GT SCH (09:11)
[2020-03-01] MEDS: PROSOURCE NO CARB 30 ML/PKT GT SCH (09:13)
[2020-03-01] MEDS: INSULIN GLARGINE SOLOSTAR 100 UNITS/ML 3 ML PEN SQ SCH ×2 (09:15→22:57)
--- NOTE | 2020-03-01 11:52 | Pharmacy Report ---
Pharmacy Glycemic Short Note 2 - Date of Service March 01, 2020 - Glycemic Short BSG Results (Last 24 hours): 02/29/20 02/29/20 03/01/20 16:58 20:32 00:11 Glucose POC Glucose 127 H 107 H 128 H 03/01/20 03/01/20 03/01/20 04:19 06:15 08:05 Glucose 151 H POC Glucose 89 182 H Outpatient Anti-diabetic Regimen: * Lantus 35 units BID, lispro SSI, metformin 1 gm bid (also on Osmolite via PEG at 50 cc/hr) * A1c = 8.7 02/09/20 INPATIENT GLYCEMIC REGIMEN AND CAUSES OF INSULIN RESISTANCE: ASSESSMENT: * Patient admitted with AMS, sepsis secondary to pneumonia, also with hypergly cemia and hypernatremia * Pharmacy consulted for glycemic management - known to service from previous admissions * Had been on insulin gtt yesterday, however discontinued last evening due to improvement in blood sugars - Pharmacy consulted today as BSGs trending back up likely due to continuation of dextrose infusion for hypernatremia and tube feedings starting * Plan to restart insulin gtt as likely will not be able to control BSGs with just SQ insulin. Plan to give dose of basal insulin for now and start insulin gtt * Until sodium normalizes/dextrose infusion dc'ed feel that insulin gtt warrante d 02/27: * Patient remains on insulin drip this morning - Na much improving / dextrose infusion now dc'ed * Tube feedings did end up starting yesterday and now are at goal / add a fix CR for tube feedings this morning * Anticipate Na to continue to improve and no longer needing dextrose infusion, therefore will schedule basal insulin today in hopes to possible transition of insulin drip * Will be conservative with basal insulin as likely BSGs will drop quickly with discontinuation of dextrose infusion 02/28 * Mr. Bergman received 126 units of insulin yesterday * Peptamen continues at goal rate of 50 cc/hr * Basal dose of 70 units per day seems reasonable; however, current tube feeding coverage does not seem to be lasting long enough with Novolog dosed q6 -> will provide more frequently to adequately cover CHOs 03/01 * Mr. Bergman received 119 units of insulin yesterday * BSGs dropped into the evening so the PM dose of Lantus was decreased by ~40%, then nurse was directed to hold Novolog coverage at 0400 when BSG was 89 mg/dL. * BSGs have now increased, likely due to reductions/held doses. * Basal dose was disproportionate to TDD so I have reduced this by 20% but will continue with tight coverage of Novolog for continuous tube feeds PLAN FOR INPATIENT GLYCEMIC CONTROL: * Hold outpatient oral diabetes medications * Basal insulin - decrease by 20% * Lantus 28 units BID * Bolus insulin - no change * NovoLog per scale q4h to cover continuous tube feeds * Goal Range: Low 110 mg/dL - High 140 mg/dL * Correction Factor: 10 mg/dL/unit * Nutritional / Prandial insulin per carb ratio of 1 unit per 4 grams CHO consumed PLAN FOR DISCHARGE: * To be determined
[2020-03-01] MEDS: cefTRIAXone SODIUM 2,000 MG in DEXTROSE 5% 50 ML IV SCH (12:17)
--- NOTE | 2020-03-01 17:09 | Hospitalist Progress Note ---
Date of Service March 01, 2020 Assessment & Plan (1) Acute hypernatremia: 64yo C male with multiple medical problems, prior CVA with right hemiplegia, minimally verbal [facility] (fever, tachycardia, tachypnea, hypoxia and leukocytosis) most likely secondary to RLL PNA/Aspiration. Patient with severe hypernatremia and hyperglycemia. Ut=589 - corrects to 173 for his hyperglycemia. Free water deficit = 9.4L. Patient has presented with severe hypernatremia in the past, last admission Na was 156 on presentation. Na was appropriately corrected and was 144 on discharge on 02/13/20. Patient clinically dry on exam - received 1L NSS in ER. Na down to 142 today continue free water flushes, decrease frequency to 400mL q4 Stopped D5W on 02/27. urine specific gravity is up, thus urine concentrated which rules out DI, plus he is not making much urine Repeat BMP in the morning if Na stays normal for two days then would d/c on 400mL q6, if it starts to climb then d/c on 400mL q4 (2) AMS (altered mental status): Patient presents with lethargy, metabolic encephalopathy in setting of severe hypernatremia, sepsis secondary to PNA. Patient has a poor functional baseline. -Correction of underlying medical problems, specifically sodium has been corrected -Frequent orientation to avoid delirium difficult to determine mental state, non-verbal, no signs of agitation - Stable today, appears to be at baseline (3) RLL pneumonia: Suspect aspiration PNA with sepsis - fever/tachycardia/tachypnea/hypoxia and neutrophil predominant leukocytosis, RLL opacity. Influenza and SARS-CoV-2 negative. Patient with history of aspiration PNA. MRSA nasal screen positive in the past -Follow blood cultures sent from ER: no growth to date -Supplemental O2 as needed to maintain saturation >90% -taper down antibiotics to Rocephin on 02/27, complete 7 days total, admitted 02/24, last day will be tomorrow 03/02 -Robitussin PRN cough -Aspiration precautions (4) History of venous thrombosis and embolism: Patient with remote history of DVT and PE in 2018. No bleeding. -Continue Xarelto 20mg po daily (5) Acute and chronic respiratory failure: History of COPD on 2L NC qHS presenting with tachypnea, hypoxia. Presently with no respiratory distress. Adequate oxygenation on 10L NRB. Lungs diminished in bases but no rhonchi/rales/wheezes. -Continue Ipratropium/Albuterol -Continue Budesonide -Supplemental O2 as needed to maintain saturations 90% (6) GERD (gastroesophageal reflux disease): Chronic -Continue Omeprazole 20mg per PEG daily (7) Epilepsy: Chronic. Stable. No seizure reported -Continue Keppra and Tegretol (8) Type 2 diabetes mellitus with hyperglycemia: hyperglycemia 02/26 due to tube feeds consult pharmacy for glycemic management insulin infusion until 02/27, Now on basal-bolus. Sugars have been 95-225 in the last 24 hours. (9) History of CVA (cerebrovascular accident): Patient with right sided hemiparesis, aphasia, s/p PEG tube. Full assist, [facility] a [facility] -Continue ASA, Atorvastatin, Xarelto -Continue Aspiration precautions -Continue skin care (10) COPD (chronic obstructive pulmonary disease): As above, patient with chronic respiratory failure -Continue home inhalers -O2 as needed (11) HLD (hyperlipidemia): Chronic. Stable -Continue Atorvastatin (12) PVD (peripheral vascular disease): Chronic. Stable -Continue ASA and Atorvastatin (13) CKD (chronic kidney disease): Cr at baseline -Avoid nephrotoxic agents -Renal dosing -Monitor BUN/Cr/electrolytes and UOP F/E/N - TF and free water flushes Ppx - Xarelto Code - DNR/DNI Dispo - transfer to medical floor, may be ready to return to [facility] by 03/03 if sodium remains stable on free water regimen Admission and Anticipated Discharge Date Admission Date: February 25, 2020 Subjective patient's sodium improved to 142 this morning, d/w nephrology, they will sign off will decrease free water to 400mL q6 for 1600mL total a day, see if sodium remains stable no fever, WBC normal he is certainly more alert than he had been previously will downgrade to medical floor today Review of Systems Review of Systems: Unobtainable due to cognitive status Physical Exam Constitutional: well developed, + thin, + frail appearing and + lethargic Eyes: PERRL, conjunctivae normal, anicteric sclerae ENMT: external ear and nose normal, oropharynx normal Neck: trachea midline, no thyromegaly Respiratory: normal respiratory effort, lungs clear to auscultation Cardiovascular: RRR, no murmur, no edema Gastrointestinal (Abdomen): normal bowel sounds, soft, nontender, no hepatosplenomegaly Musculoskeletal: Head/Neck/Chest: normocephalic and head atraumatic Extremities: + abnormal strength (generalized weakness, hemiplegia) and + muscle atrophy; no cyanosis and no clubbing Skin: no rashes, warm and dry Neurologic: CN's II-XI intact bilaterally and + focal motor deficit; + does not move all extremities Speech / Cognition: + expressive aphasia and + abnormal cognition Motor/Sensory: no tremor Psychiatric: Orientation: alert; + not oriented x 3 Lymphatic: no cervical or axillary lymphadenopathy Results & Data Results & Data ([facility]) Vital Signs (Past 12 Hours) Vital Signs Temp Pulse Pulse Resp BP BP Pulse Ox 03/01/20 16:14 37.4 C 72 17 97/66 L 92 03/01/20 13:33 86 16 93 03/01/20 11:43 37.1 C 89 18 96/64 L 92 03/01/20 08:04 37.3 C 92 H 20 104/70 96 03/01/20 08:00 84 03/01/20 06:57 88 18 88 L Laboratory Results Laboratory Results - last 24 hr 02/29/20 03/01/20 03/01/20 20:32 00:11 04:19 WBC RBC Hgb Hct MCV MCH MCHC RDW Std Deviation RDW Coeff of Nick Plt Count MPV Platelet Estimate Sodium Potassium Chloride Carbon Dioxide Anion Gap BUN Creatinine Est Cr Clr Drug Dosing Est GFR ( Amer) Est GFR (Non-Af Amer) BUN/Creatinine Ratio Glucose POC Glucose 107 H 128 H 89 Calcium Phosphorus Magnesium 03/01/20 03/01/20 03/01/20 06:15 06:15 08:05 WBC 7.51 RBC 3.62 L Hgb 11.6 L Hct 36.8 L MCV 101.7 H MCH 32.0 MCHC 31.5 L RDW Std Deviation 51.9 H RDW Coeff of Nick 14.0 Plt Count 121 L MPV 12.6 H Platelet Estimate Decreased L Sodium 142 D Potassium 4.1 Chloride 110 H Carbon Dioxide 27 Anion Gap 5.0 BUN 10 D Creatinine 0.59 L Est Cr Clr Drug Dosing 128.5 Est GFR ( Amer) 125.8 Est GFR (Non-Af Amer) 108.5 BUN/Creatinine Ratio 17.6 Glucose 151 H POC Glucose 182 H Calcium 8.5 Phosphorus 2.3 L Magnesium 1.8 03/01/20 03/01/20 03/01/20 11:46 11:47 16:46 WBC RBC Hgb Hct MCV MCH MCHC RDW Std Deviation RDW Coeff of Nick Plt Count MPV Platelet Estimate Sodium Potassium Chloride Carbon Dioxide Anion Gap BUN Creatinine Est Cr Clr Drug Dosing Est GFR ( Amer) Est GFR (Non-Af Amer) BUN/Creatinine Ratio Glucose POC Glucose 324 H* 332 H* 96 Calcium Phosphorus Magnesium Medications Administered Current Inpatient Medications Acetaminophen (Tylenol Soln) 650 mg GT Q4H PRN PRN Reason: Pain or Fever Stop: 03/26/20 23:37 Albuterol (Duoneb) 3 ml INH Q6R BARBARA Stop: 03/27/20 00:59 Last Admin: 03/01/20 13:33 Dose: 3 ml Documented by: Aspirin (Aspirin Chew) 81 mg GT DAILY BARBARA Stop: 03/27/20 08:59 Last Admin: 03/01/20 09:10 Dose: 81 mg Documented by: Atorvastatin Calcium (Lipitor) 20 mg GT HS BARBARA Stop: 03/26/20 23:28 Last Admin: 02/29/20 21:08 Dose: 20 mg Documented by: Bisacodyl (Dulcolax) 10 mg AR UD PRN PRN Reason: Constipation Stop: 03/26/20 23:28 Budesonide (Pulmicort Respules) 0.5 mg INH TIDR BARBARA Stop: 03/27/20 06:59 Last Admin: 03/01/20 13:42 Dose: Not Given Documented by: Carbamazepine (Tegretol) 100 mg PO HS BARBARA Stop: 03/26/20 23:28 Last Admin: 02/29/20 21:08 Dose: 100 mg Documented by: Carbamazepine (Tegretol) 400 mg PO BID BARBARA Stop: 03/26/20 23:28 Last Admin: 03/01/20 09:10 Dose: 400 mg Documented by: Citalopram Hydrobromide (Celexa) 40 mg GT DAILY BARBARA Stop: 03/27/20 08:59 Last Admin: 03/01/20 09:10 Dose: 40 mg Documented by: Dextrose (Dextrose 50%) 25 - 50 ml IV UD PRN; Protocol PRN Reason: Hypoglycemia Protocol Stop: 03/26/20 23:28 Docusate Sodium (Colace) 100 mg GT Q3D BARBARA Stop: 03/28/20 08:59 Last Admin: 03/01/20 09:09 Dose: 100 mg Documented by: Enteral Nutritional Formula (Peptamen 1.5 Aron) 1,000 ml PEG .CONTINUOUS BARBARA; Protocol Stop: 03/27/20 12:59 Last Admin: 02/28/20 17:44 Dose: 1,000 ml Documented by: Glucagon (Glucagen) 1 mg SQ UD PRN; Protocol PRN Reason: Hypoglycemia Protocol Stop: 03/26/20 23:28 Glucose (Dex4 Glucose) 4 - 8 tabs PO UD PRN; Protocol PRN Reason: Hypoglycemia Protocol Stop: 03/26/20 23:28 Glucose (Glucose 40%) 15 - 30 gm PO UD PRN; Protocol PRN Reason: Hypoglycemia Protocol Stop: 03/26/20 23:28 Guaifenesin (Robitussin Sugar Free Syrup) 200 mg GT Q6H PRN PRN Reason: Cough Stop: 03/26/20 23:28 Ceftriaxone Sodium 2,000 mg/ (Dextrose) 70 mls @ 100 mls/hr IV Q24H BARBARA; Protocol Stop: 03/06/20 11:59 Last Infusion: 03/01/20 13:26 Dose: Infused Documented by: Insulin Aspart (Novolog Flexpen) 0 units SC Q4 BARBARA Stop: 03/30/20 11:59 Last Admin: 03/01/20 12:18 Dose: 30 units Documented by: Insulin Glargine (Lantus Solostar Pen) 28 units SQ BID BARBARA; Protocol Stop: 03/31/20 08:59 Last Admin: 03/01/20 09:15 Dose: 28 units Documented by: Lactic Acid (Amlactin) 1 gm EXT BID BARBARA Stop: 03/27/20 08:59 Last Admin: 03/01/20 09:11 Dose: 1 gm Documented by: Lansoprazole (Prevacid) 30 mg GT DAILY BARBARA Stop: 03/27/20 08:59 Last Admin: 03/01/20 09:09 Dose: 30 mg Documented by: Levetiracetam (Keppra) 1,000 mg GT BID BARBARA Stop: 03/26/20 23:28 Last Admin: 03/01/20 09:09 Dose: 1,000 mg Documented by: Magnesium Hydroxide (Milk Of Magnesia) 30 ml GT DAILY PRN PRN Reason: Constipation Stop: 03/26/20 23:28 Miconazole Nitrate (Desenex) 1 appln TOP BID BARBARA Stop: 03/26/20 23:28 Last Admin: 03/01/20 09:11 Dose: 1 appln Documented by: Miscellaneous (Carbohydrates For Hypoglycemia) 15 - 30 gm PO UD PRN PRN Reason: Hypoglycemia Protocol Stop: 03/26/20 23:28 Miscellaneous Information (Consult Glycemic Management Pharmacy) 1 ea N/A UD PRN PRN Reason: Consult Stop: 03/28/20 13:26 Multivitamins/Minerals (Cerovite Liquid) 15 ml GT DAILY BARBARA Stop: 03/27/20 08:59 Last Admin: 03/01/20 09:11 Dose: 15 ml Documented by: Nutritional Formula (Prosource No Carb) 30 ml GT DAILY BARBARA Stop: 03/28/20 08:59 Last Admin: 03/01/20 09:13 Dose: 30 ml Documented by: Ondansetron HCl (Zofran) 4 mg IV Q6H PRN PRN Reason: Nausea Stop: 03/26/20 23:28 Potassium Chloride (Kristi Ciel Elix) 20 meq PEG BID BARBARA Stop: 03/27/20 20:59 Last Admin: 03/01/20 09:09 Dose: 20 meq Documented by: Rivaroxaban (Xarelto) 20 mg PO DAILY BARBARA Stop: 03/27/20 08:59 Last Admin: 03/01/20 09:10 Dose: 20 mg Documented by: Saccharomyces Boulardii (Florastor) 250 mg PO TID BARBARA Stop: 03/26/20 23:28 Last Admin: 03/01/20 13:56 Dose: 250 mg Documented by: Simethicone (Mylicon) 80 mg GT Q6H PRN PRN Reason: Gas Stop: 03/26/20 23:28 Sodium Biphosphate/Sodium Phosphate (Fleet Enema) 118 ml AR DAILY PRN PRN Reason: Constipation Stop: 03/26/20 23:28 Sterile Water (Tube Feeding Water Flush) 1 ea GT Q6 BARBARA Stop: 03/31/20 11:59 Last Admin: 03/01/20 12:17 Dose: 1 ea Documented by: Trazodone HCl (Desyrel) 50 mg GT BID BARBARA Stop: 03/26/20 23:28 Last Admin: 03/01/20 09:10 Dose: 50 mg Documented by: PG Care Time/CCT Total # of Minutes Spent Total Time Spent with Patient: Total time spent is greater than 50% in coordination of care (as documented) at patient's floor/unit and/or counseling patient: Coding Level of Care Code 11550 Subseq Hosp Care Lvl 2 Diagnoses Acute hypernatremia E87.0 AMS (altered mental status) R40.0 Altered mental status type: somnolence RLL pneumonia J69.0 Aspiration pneumonia type: unspecified Pneumonia type: aspiration pneumonia History of venous thrombosis and embolism Z86.718 Acute and chronic respiratory failure J96.21 Respiratory failure complication: hypoxia GERD (gastroesophageal reflux disease) K21.9 Esophagitis presence: esophagitis presence not specified Epilepsy G40.909 Epilepsy type: unspecified Intractability: not intractable Status epilepticus: without status epilepticus Type 2 diabetes mellitus with hyperglycemia E11.65; Z79.4 Diabetes mellitus mcfp insulin use: with terminal gauger use History of CVA (cerebrovascular accident) Z86.73 COPD (chronic obstructive pulmonary disease) J44.9 COPD type: unspecified COPD HLD (hyperlipidemia) E78.5 Hyperlipidemia type: unspecified PVD (peripheral vascular disease) I73.9 CKD (chronic kidney disease) N18.9 Chronic kidney disease stage: unspecified stage (1) AMS (altered mental status) Altered mental status type: somnolence Qualified Code(s): R40.0 - Somnolence (2) RLL pneumonia Aspiration pneumonia type: unspecified Pneumonia type: aspiration pneumonia Qualified Code(s): J69.0 - Pneumonitis due to inhalation of food and vomit (3) Acute and chronic respiratory failure Respiratory failure complication: hypoxia Qualified Code(s): J96.21 - Acute and chronic respiratory failure with hypoxia (4) GERD (gastroesophageal reflux disease) Esophagitis presence: esophagitis presence not specified Qualified Code(s): K21.9 - Gastro-esophageal reflux disease without esophagitis (5) Epilepsy Epilepsy type: unspecified Intractability: not intractable Status epilepticus: without status epilepticus Qualified Code(s): G40.909 - Epilepsy, unspecified, not intractable, without status epilepticus (6) Type 2 diabetes mellitus with hyperglycemia Diabetes mellitus terminal gauger insulin use: with mcfp use Qualified Code(s): E11.65 - Type 2 diabetes mellitus with hyperglycemia; Z79.4 - watermelon inspector (current) use of insulin (7) COPD (chronic obstructive pulmonary disease) COPD type: unspecified COPD Qualified Code(s): J44.9 - Chronic obstructive pulmonary disease, unspecified (8) HLD (hyperlipidemia) Hyperlipidemia type: unspecified Qualified Code(s): E78.5 - Hyperlipidemia, unspecified (9) CKD (chronic kidney disease) Chronic kidney disease stage: unspecified stage Qualified Code(s): N18.9 - Ch ronic kidney disease, unspecified
[2020-03-01] MEDS: PEPTAMEN 1.5 CAL 1,000 ML BAG PEG SCH (17:38)
[2020-03-01] MEDS: CARBAMAZEPINE 100 MG CHEW TAB PO SCH (22:39)
[2020-03-01] MEDS: ATORVASTATIN 20 MG TAB GT SCH (22:40)
[2020-03-02] MEDS: INSULIN ASPART 100 UNITS/ML 3 ML PEN SC SCH ×6 (00:27→20:40)
[2020-03-02] MEDS: TUBE FEEDING WATER FLUSH GT SCH ×5 (00:28→23:57)
[2020-03-02] MEDS: ALBUT/IPRATROP 3MG/0.5MG NEB 3 ML VIAL INH SCH ×6 (00:58→19:24)
[2020-03-02] MEDS: BUDESONIDE 0.5 MG/2 ML VIAL (PULMICORT) INH SCH ×3 (07:58→19:24)
[2020-03-02] MEDS: MULTI VIT W/MINERALS LIQUID 15 ML UDP GT SCH (08:13)
[2020-03-02] MEDS: LANSOPRAZOLE 30 MG SOLTAB GT SCH (08:14)
[2020-03-02] MEDS: SACCHAROMYCES BOULARDII 250 MG CAP PO SCH ×3 (08:14→20:38)
[2020-03-02] MEDS: RIVAROXABAN 20 MG TAB PO SCH (08:14)
[2020-03-02] MEDS: levETIRAcetam ORAL SOLN 100MG/ML GT SCH ×2 (08:14→20:53)
[2020-03-02] MEDS: carBAMazepine 200 MG TABLET PO SCH ×2 (08:15→20:54)
[2020-03-02] MEDS: TRAZODONE HCL 50 MG TAB GT SCH ×2 (08:15→20:54)
[2020-03-02] MEDS: ASPIRIN 81 MG CHEW GT SCH (08:15)
[2020-03-02] MEDS: CITALOPRAM 40 MG TAB GT SCH (08:16)
[2020-03-02] MEDS: POTASSIUM CHLORIDE 20 MEQ/15 ML UDC PEG SCH ×2 (08:16→20:54)
[2020-03-02] MEDS: AMMONIUM LACTATE 12% LOTION 225 GM BTL EXT SCH ×2 (08:16→20:54)
[2020-03-02] MEDS: MICONAZOLE NITRATE POWDER 43 GM TOP SCH ×2 (08:16→21:37)
[2020-03-02] MEDS: PROSOURCE NO CARB 30 ML/PKT GT SCH (08:17)
[2020-03-02] MEDS: INSULIN GLARGINE SOLOSTAR 100 UNITS/ML 3 ML PEN SQ SCH ×2 (08:32→20:39)
[2020-03-02 10:40] LABS: BUN Creatinine Ratio 17.7 (10-20); Calcium 8.9 mg/dl (8.5-10.1); Est GFR (African American) 115.2; Est GFR (Non-African American) 99.4
[2020-03-02] MEDS: cefTRIAXone SODIUM 2,000 MG in DEXTROSE 5% 50 ML IV SCH (11:59)
--- NOTE | 2020-03-02 16:09 | Hospitalist Progress Note ---
Date of Service March 02, 2020 Assessment & Plan (1) Acute hypernatremia: 64yo C male with multiple medical problems, prior CVA with right hemiplegia, minimally verbal presenting from [facility] with sepsis (fever, tachycardia, tachypnea, hypoxia and leukocytosis) most likely secondary to RLL PNA/Aspiration. Patient with severe hypernatremia and hyperglycemia. Zd=394 - corrects to 173 for his hyperglycemia. Free water deficit = 9.4L. Patient has presented with severe hypernatremia in the past, last admission Na was 156 on presentation. Na was appropriately corrected and was 144 on discharge on 02/13/20. Patient clinically dry on exam - received 1L NSS in ER. Na down to 140 today continue free water flushes, decrease frequency to 400mL q6 Stopped D5W on 02/27. urine specific gravity is up, thus urine concentrated which rules out DI, plus he is not making much urine Repeat BMP in the morning plan to discharge him on free water flushes q6 (2) AMS (altered mental status): Patient presents with lethargy, metabolic encephalopathy in setting of severe hypernatremia, sepsis secondary to PNA. Patient has a poor functional baseline. -Correction of underlying medical problems, specifically sodium has been corrected today he is alert, non-verbal, no distress, likely at his baseline (3) RLL pneumonia: Suspect aspiration PNA with sepsis - fever/tachycardia/tachypnea/hypoxia and neutrophil predominant leukocytosis, RLL opacity. Influenza and SARS-CoV-2 negative. Patient with history of aspiration PNA. MRSA nasal screen positive in the past -Follow blood cultures sent from ER: no growth to date -Supplemental O2 as needed to maintain saturation >90% -taper down antibiotics to Rocephin on 02/27, complete 7 days total, admitted 02/24, last day is today -Aspiration precautions (4) History of venous thrombosis and embolism: Patient with remote history of DVT and PE in 2018. No bleeding. -Continue Xarelto 20mg po daily (5) Acute and chronic respiratory failure: History of COPD on 2L NC qHS presenting with tachypnea, hypoxia. Presently with no respiratory distress. Lungs diminished in bases but no rhonchi/rales/wheezes. -Continue Ipratropium/Albuterol -Continue Budesonide patient stable on 2-3L NC for several days, his baseline (6) GERD (gastroesophageal reflux disease): Chronic -Continue Omeprazole 20mg per PEG daily (7) Epilepsy: Chronic. Stable. No seizure reported -Continue Keppra and Tegretol (8) Type 2 diabetes mellitus with hyperglycemia: hyperglycemia 02/26 due to tube feeds consult pharmacy for glycemic management continue Lantus 28 units BID and Novolog SS q4 (9) History of CVA (cerebrovascular accident): Patient with right sided hemiparesis, aphasia, s/p PEG tube. Full assist, resides in a [facility] -Continue ASA, Atorvastatin, Xarelto -Continue Aspiration precautions -Continue skin care (10) COPD (chronic obstructive pulmonary disease): As above, patient with chronic respiratory failure -Continue home inhalers -O2 as needed (11) HLD (hyperlipidemia): Chronic. Stable -Continue Atorvastatin (12) PVD (peripheral vascular disease): Chronic. Stable -Continue ASA and Atorvastatin (13) CKD (chronic kidney disease): Cr at baseline -Avoid nephrotoxic agents -Renal dosing -Monitor BUN/Cr/electrolytes and UOP F/E/N - TF and free water flushes Ppx - Xarelto Code - DNR/DNI Dispo - CM looking into alternative SNF facility, he will be medically stable on Sunday 03/04 Admission and Anticipated Discharge Date Admission Date: February 25, 2020 Subjective sodium down to 140 today, improving with the free water at 400mL q6 patient appears to be at baseline from mental standpoint he is alert, non verbal, no distress per CM, his sister would like him to be in a SNF closer to her home, looking at facilities in [facility] Review of Systems Review of Systems: Unobtainable due to cognitive status Physical Exam Constitutional: well developed, + thin, + frail appearing and + lethargic Eyes: PERRL, conjunctivae normal, anicteric sclerae ENMT: external ear and nose normal, oropharynx normal Neck: trachea midline, no thyromegaly Respiratory: normal respiratory effort, lungs clear to auscultation Cardiovascular: RRR, no murmur, no edema Gastrointestinal (Abdomen): normal bowel sounds, soft, nontender, no hepatosplenomegaly Musculoskeletal: Head/Neck/Chest: normocephalic and head atraumatic Extremities: + abnormal strength (generalized weakness, hemiplegia) and + muscle atrophy; no cyanosis and no clubbing Skin: no rashes, warm and dry Neurologic: CN's II-XI intact bilaterally and + focal motor deficit; + does not move all extremities Speech / Cognition: + expressive aphasia and + abnormal cognition Motor/Sensory: no tremor Psychiatric: Orientation: alert; + not oriented x 3 Lymphatic: no cervical or axillary lymphadenopathy Results & Data Results & Data ([facility]) Vital Signs (Past 12 Hours) Vital Signs Temp Pulse Resp BP Pulse Ox 03/02/20 15:56 104/70 03/02/20 15:54 93 H 18 85/54 L 93 03/02/20 13:38 87 22 97 03/02/20 07:58 85 22 91 03/02/20 06:48 36.7 C 101 H 20 98/67 L 93 03/02/20 05:43 36.6 C 101 H 21 101/68 94 03/02/20 04:40 103 H 28 H 91 Laboratory Results Laboratory Results - last 24 hr 03/01/20 03/01/20 03/01/20 16:46 21:30 21:36 Sodium Potassium Chloride Carbon Dioxide Anion Gap BUN Creatinine Est Cr Clr Drug Dosing Est GFR ( Amer) Est GFR (Non-Af Amer) BUN/Creatinine Ratio Glucose POC Glucose 96 59 L* 58 L* Calcium 03/01/20 03/01/20 03/01/20 21:56 22:55 23:51 Sodium Potassium Chloride Carbon Dioxide Anion Gap BUN Creatinine Est Cr Clr Drug Dosing Est GFR ( Amer) Est GFR (Non-Af Amer) BUN/Creatinine Ratio Glucose POC Glucose 95 95 114 H Calcium 03/02/20 03/02/20 03/02/20 04:00 07:27 09:54 Sodium 140 Potassium 4.0 Chloride 105 Carbon Dioxide 29 Anion Gap 6.0 BUN 13 Creatinine 0.73 Est Cr Clr Drug Dosing 108.0 Est GFR ( Amer) 115.2 Est GFR (Non-Af Amer) 99.4 BUN/Creatinine Ratio 17.7 Glucose 175 H POC Glucose 189 H 250 H Calcium 8.9 03/02/20 03/02/20 03/02/20 11:29 11:40 15:46 Sodium Potassium Chloride Carbon Dioxide Anion Gap BUN Creatinine Est Cr Clr Drug Dosing Est GFR ( Amer) Est GFR (Non-Af Amer) BUN/Creatinine Ratio Glucose POC Glucose 171 H 171 H 141 H Calcium Medications Administered Current Inpatient Medications Acetaminophen (Tylenol Soln) 650 mg GT Q4H PRN PRN Reason: Pain or Fever Stop: 03/26/20 23:37 Albuterol (Duoneb) 3 ml INH Q6R [facility]BARA Stop: 03/27/20 00:59 Last Admin: 03/02/20 13:34 Dose: 3 ml Documented by: Aspirin (Aspirin Chew) 81 mg GT DAILY [facility] Stop: 03/27/20 08:59 Last Admin: 03/02/20 08:15 Dose: 81 mg Documented by: Atorvastatin Calcium (Lipitor) 20 mg GT HS [facility]BARA Stop: 03/26/20 23:28 Last Admin: 03/01/20 22:40 Dose: 20 mg Documented by: Bisacodyl (Dulcolax) 10 mg HI UD PRN PRN Reason: Constipation Stop: 03/26/20 23:28 Budesonide (Pulmicort Respules) 0.5 mg INH TIDR [facility] Stop: 03/27/20 06:59 Last Admin: 03/02/20 13:34 Dose: 0.5 mg Documented by: Carbamazepine (Tegretol) 100 mg PO HS [facility]BARA Stop: 03/26/20 23:28 Last Admin: 03/01/20 22:39 Dose: 100 mg Documented by: Carbamazepine (Tegretol) 400 mg PO BID [facility] Stop: 03/26/20 23:28 Last Admin: 03/02/20 08:15 Dose: 400 mg Documented by: Citalopram Hydrobromide (Celexa) 40 mg GT DAILY [facility] Stop: 03/27/20 08:59 Last Admin: 03/02/20 08:16 Dose: 40 mg Documented by: Dextrose (Dextrose 50%) 25 - 50 ml IV UD PRN; Protocol PRN Reason: Hypoglycemia Protocol Stop: 03/26/20 23:28 Last Admin: 03/01/20 21:42 Dose: 25 ml Documented by: Docusate Sodium (Colace) 100 mg GT Q3D [facility]BARA Stop: 03/28/20 08:59 Last Admin: 03/01/20 09:09 Dose: 100 mg Documented by: Enteral Nutritional Formula (Peptamen 1.5 Aron) 1,000 ml PEG .CONTINUOUS [facility]BARA; Protocol Stop: 03/27/20 12:59 Last Admin: 03/01/20 17:38 Dose: 1,000 ml Documented by: Glucagon (Glucagen) 1 mg SQ UD PRN; Protocol PRN Reason: Hypoglycemia Protocol Stop: 03/26/20 23:28 Glucose (Dex4 Glucose) 4 - 8 tabs PO UD PRN; Protocol PRN Reason: Hypoglycemia Protocol Stop: 03/26/20 23:28 Glucose (Glucose 40%) 15 - 30 gm PO UD PRN; Protocol PRN Reason: Hypoglycemia Protocol Stop: 03/26/20 23:28 Guaifenesin (Robitussin Sugar Free Syrup) 200 mg GT Q6H PRN PRN Reason: Cough Stop: 03/26/20 23:28 Ceftriaxone Sodium 2,000 mg/ (Dextrose) 70 mls @ 100 mls/hr IV Q24H BARBARA; Protocol Stop: 03/06/20 11:59 Last Infusion: 03/02/20 13:00 Dose: Infused Documented by: Insulin Aspart (Novolog Flexpen) 0 units SC Q4 [facility] Stop: 03/30/20 11:59 Last Admin: 03/02/20 15:58 Dose: 11 units Documented by: Insulin Glargine (Lantus Solostar Pen) 28 units SQ BID [facility]; Protocol Stop: 03/31/20 08:59 Last Admin: 03/02/20 08:32 Dose: 28 units Documented by: Lactic Acid (Amlactin) 1 gm EXT BID [facility] Stop: 03/27/20 08:59 Last Admin: 03/02/20 08:16 Dose: 1 gm Documented by: Lansoprazole (Prevacid) 30 mg GT DAILY [facility] Stop: 03/27/20 08:59 Last Admin: 03/02/20 08:14 Dose: 30 mg Documented by: Levetiracetam (Keppra) 1,000 mg GT BID [facility] Stop: 03/26/20 23:28 Last Admin: 03/02/20 08:14 Dose: 1,000 mg Documented by: Magnesium Hydroxide (Milk Of Magnesia) 30 ml GT DAILY PRN PRN Reason: Constipation Stop: 03/26/20 23:28 Miconazole Nitrate (Desenex) 1 appln TOP BID [facility] Stop: 03/26/20 23:28 Last Admin: 03/02/20 08:16 Dose: 1 appln Documented by: Miscellaneous (Carbohydrates For Hypoglycemia) 15 - 30 gm PO UD PRN PRN Reason: Hypoglycemia Protocol Stop: 03/26/20 23:28 Miscellaneous Information (Consult Glycemic Management Pharmacy) 1 ea N/A UD PRN PRN Reason: Consult Stop: 03/28/20 13:26 Multivitamins/Minerals (Cerovite Liquid) 15 ml GT DAILY [facility] Stop: 03/27/20 08:59 Last Admin: 03/02/20 08:13 Dose: 15 ml Documented by: Nutritional Formula (Prosource No Carb) 30 ml GT DAILY [facility] Stop: 03/28/20 08:59 Last Admin: 03/02/20 08:17 Dose: 30 ml Documented by: Ondansetron HCl (Zofran) 4 mg IV Q6H PRN PRN Reason: Nausea Stop: 03/26/20 23:28 Potassium Chloride (Kristi Ciel Elix) 20 meq PEG BID [facility] Stop: 03/27/20 20:59 Last Admin: 03/02/20 08:16 Dose: 20 meq Documented by: Rivaroxaban (Xarelto) 20 mg PO DAILY [facility] Stop: 03/27/20 08:59 Last Admin: 03/02/20 08:14 Dose: 20 mg Documented by: Saccharomyces Boulardii (Florastor) 250 mg PO TID [facility] Stop: 03/26/20 23:28 Last Admin: 03/02/20 14:24 Dose: 250 mg Documented by: Simethicone (Mylicon) 80 mg GT Q6H PRN PRN Reason: Gas Stop: 03/26/20 23:28 Sodium Biphosphate/Sodium Phosphate (Fleet Enema) 118 ml HI DAILY PRN PRN Reason: Constipation Stop: 03/26/20 23:28 Sterile Water (Tube Feeding Water Flush) 1 ea GT Q6 [facility] Stop: 03/31/20 11:59 Last Admin: 03/02/20 11:59 Dose: 1 ea Documented by: Trazodone HCl (Desyrel) 50 mg GT BID [facility] Stop: 03/26/20 23:28 Last Admin: 03/02/20 08:15 Dose: 50 mg Documented by: PG Care Time/CCT Total # of Minutes Spent Total Time Spent with Patient: Total time spent is greater than 50% in coordination of care (as documented) at patient's floor/unit and/or counseling patient: Coding Level of Care Code 17470 Subseq Hosp Care Lvl 2 Diagnoses Acute hypernatremia E87.0 AMS (altered mental status) R40.0 Altered mental status type: somnolence RLL pneumonia J69.0 Aspiration pneumonia type: unspecified Pneumonia type: aspiration pneumonia History of venous thrombosis and embolism Z86.718 Acute and chronic respiratory failure J96.21 Respiratory failure complication: hypoxia GERD (gastroesophageal reflux disease) K21.9 Esophagitis presence: esophagitis presence not specified Epilepsy G40.909 Epilepsy type: unspecified Intractability: not intractable Status epilepticus: without status epilepticus Type 2 diabetes mellitus with hyperglycemia E11.65; Z79.4 Diabetes mellitus penitentiary insulin use: with penitentiary use History of CVA (cerebrovascular accident) Z86.73 COPD (chronic obstructive pulmonary disease) J44.9 COPD type: unspecified COPD HLD (hyperlipidemia) E78.5 Hyperlipidemia type: unspecified PVD (peripheral vascular disease) I73.9 CKD (chronic kidney disease) N18.9 Chronic kidney disease stage: unspecified stage (1) Type 2 diabetes mellitus with hyperglycemia Diabetes mellitus penitentiary insulin use: with penitentiary use Qualified Code(s): E11.65 - Type 2 diabetes mellitus with hyperglycemia; Z79.4 - FPC (current) use of insulin (2) Epilepsy Epilepsy type: unspecified Intractability: not intractable Status epilepticus: without status epilepticus Qualified Code(s): G40.909 - Epilepsy, unspecified, not intractable, without status epilepticus (3) Acute and chronic respiratory failure Respiratory failure complication: hypoxia Qualified Code(s): J96.21 - Acute and chronic respiratory failure with hypoxia (4) HLD (hyperlipidemia) Hyperlipidemia type: unspecified Qualified Code(s): E78.5 - Hyperlipidemia, unspecified (5) CKD (chronic kidney disease) Chronic kidney disease stage: unspecified stage Qualified Code(s): N18.9 - Chronic kidney disease, unspecified (6) AMS (altered mental status) Altered mental status type: somnolence Qualified Code(s): R40.0 - Somnolence (7) COPD (chronic obstructive pulmonary disease) COPD type: unspecified COPD Qualified Code(s): J44.9 - Chronic obstructive pulmonary disease, unspecified (8) RLL pneumonia Aspiration pneumonia type: unspecified Pneumonia type: aspiration pneumonia Qualified Code(s): J69.0 - Pneumonitis due to inhalation of food and vomit (9) GERD (gastroesophageal reflux disease) Esophagitis presence: esophagitis presence not specified Qualified Code(s): K21.9 - Gastro-esophageal reflux disease without esophagitis
[2020-03-02] MEDS: PEPTAMEN 1.5 CAL 1,000 ML BAG PEG SCH (17:16)
[2020-03-02] MEDS: CARBAMAZEPINE 100 MG CHEW TAB PO SCH (20:54)
[2020-03-02] MEDS: ATORVASTATIN 20 MG TAB GT SCH (20:54)
[2020-03-03] MEDS: INSULIN ASPART 100 UNITS/ML 3 ML PEN SC SCH ×6 (00:11→20:13)
[2020-03-03] MEDS: ALBUT/IPRATROP 3MG/0.5MG NEB 3 ML VIAL INH SCH ×4 (00:46→19:44)
[2020-03-03] MEDS: TUBE FEEDING WATER FLUSH GT SCH ×3 (06:00→17:15)
[2020-03-03] MEDS: BUDESONIDE 0.5 MG/2 ML VIAL (PULMICORT) INH SCH ×3 (07:07→19:43)
[2020-03-03 07:51] LABS: BUN Creatinine Ratio 19.5 (10-20); Calcium 8.8 mg/dl (8.5-10.1); Creatinine Clr Calc Pharmacy 128.8 ml/min; Est GFR (African American) 123.2; Est GFR (Non-African American) 106.3; Potassium 4.6 mmol/L (3.5-5.1)
[2020-03-03] MEDS: INSULIN GLARGINE SOLOSTAR 100 UNITS/ML 3 ML PEN SQ SCH ×2 (08:09→20:18)
[2020-03-03] MEDS: levETIRAcetam ORAL SOLN 100MG/ML GT SCH ×2 (08:10→20:15)
[2020-03-03] MEDS: PROSOURCE NO CARB 30 ML/PKT GT SCH (08:10)
[2020-03-03] MEDS: CITALOPRAM 40 MG TAB GT SCH (08:11)
[2020-03-03] MEDS: POTASSIUM CHLORIDE 20 MEQ/15 ML UDC PEG SCH ×2 (08:11→20:15)
[2020-03-03] MEDS: LANSOPRAZOLE 30 MG SOLTAB GT SCH (08:11)
[2020-03-03] MEDS: MULTI VIT W/MINERALS LIQUID 15 ML UDP GT SCH (08:11)
[2020-03-03] MEDS: RIVAROXABAN 20 MG TAB PO SCH (08:12)
[2020-03-03] MEDS: SACCHAROMYCES BOULARDII 250 MG CAP PO SCH ×3 (08:13→20:17)
[2020-03-03] MEDS: carBAMazepine 200 MG TABLET PO SCH ×2 (08:13→20:17)
[2020-03-03] MEDS: AMMONIUM LACTATE 12% LOTION 225 GM BTL EXT SCH ×2 (08:14→20:14)
[2020-03-03] MEDS: MICONAZOLE NITRATE POWDER 43 GM TOP SCH ×2 (08:14→20:15)
[2020-03-03] MEDS: ASPIRIN 81 MG CHEW GT SCH (08:20)
[2020-03-03] MEDS: TRAZODONE HCL 50 MG TAB GT SCH ×2 (08:20→20:25)
[2020-03-03] MEDS: cefTRIAXone SODIUM 2,000 MG in DEXTROSE 5% 50 ML IV SCH (11:23)
--- NOTE | 2020-03-03 13:47 | Pharmacy Report ---
Pharmacy Glycemic Short Note 2 - Date of Service March 03, 2020 - Glycemic Short BSG Results (Last 24 hours): 03/02/20 03/02/20 03/03/20 15:46 20:15 00:03 Glucose POC Glucose 141 H 111 H 142 H 03/03/20 03/03/20 03/03/20 04:21 06:52 07:51 Glucose 233 H POC Glucose 159 H 232 H 03/03/20 12:07 Glucose POC Glucose 194 H Outpatient Anti-diabetic Regimen: * Lantus 35 units BID, lispro SSI, metformin 1 gm bid (also on Osmolite via PEG at 50 cc/hr) * A1c = 8.7 02/09/20 INPATIENT GLYCEMIC REGIMEN AND CAUSES OF INSULIN RESISTANCE: ASSESSMENT: * Patient admitted with AMS, sepsis secondary to pneumonia, also with hyperglycemia and hypernatremia * Pharmacy consulted for glycemic management - known to service from previous admissions * Had been on insulin gtt yesterday, however discontinued last evening due to improvement in blood sugars - Pharmacy consulted today as BSGs trending back up likely due to continuation of dextrose infusion for hypernatremia and tube feedings starting * Plan to restart insulin gtt as likely will not be able to control BSGs with just SQ insulin. Plan to give dose of basal insulin for now and start insulin gtt * Until sodium normalizes/dextrose infusion dc'ed feel that insulin gtt warranted 02/27: * Patient remains on insulin drip this morning - Na much improving / dextrose infusion now dc'ed * Tube feedings did end up starting yesterday and now are at goal / add a fix CR for tube feedings this morning * Anticipate Na to continue to improve and no longer needing dextrose infusion, therefore will schedule basal insulin today in hopes to possible transition of insulin drip * Will be conservative with basal insulin as likely BSGs will drop quickly with discontinuation of dextrose infusion 02/28 * Mr. Bergman received 126 units of insulin yesterday * Peptamen continues at goal rate of 50 cc/hr * Basal dose of 70 units per day seems reasonable; however, current tube feeding coverage does not seem to be lasting long enough with Novolog dosed q6 -> will provide more frequently to adequately cover CHOs 03/01 * Mr. Bergman received 119 units of insulin yesterday * BSGs dropped into the evening so the PM dose of Lantus was decreased by ~40%, then nurse was directed to hold Novolog coverage at 0400 when BSG was 89 mg/dL. * BSGs have now increased, likely due to reductions/held doses. * Basal dose was disproportionate to TDD so I have reduced this by 20% but will continue with tight coverage of Novolog for continuous tube feeds 03/03 * Mr. Bergman received 128 units of insulin yesterday, blood sugars ranging from 111-232mg/dl * No changes in insulin regimen needed at this time * Peptamen at goal, patient receiving 38 grams CHO every 4 hours. * Patient to transfer to SNF tomorrow PLAN FOR INPATIENT GLYCEMIC CONTROL: * Hold outpatient oral diabetes medications * Basal insulin * Lantus 28 units BID * Bolus insulin * NovoLog per scale q4h to cover continuous tube feeds * Goal Range: Low 110 mg/dL - High 140 mg/dL * Correction Factor: 10 mg/dL/unit * Nutritional / Prandial insulin per carb ratio of 1 unit per 4 grams CHO consumed PLAN FOR DISCHARGE: * To be determined based off what SNF is able to do for glycemic control * If patient requires simplified insulin regimen, and TFs remaining at similar CHO intake (~228g/day) , would recommend NPH 50 units SQ BID
--- NOTE | 2020-03-03 14:01 | Hospitalist Progress Note ---
Date of Service March 03, 2020 Assessment & Plan (1) Acute hypernatremia: 64yo C male with multiple medical problems, prior CVA with right hemiplegia, minimally verbal presenting from [place] [facility] with sepsis (fever, tachycardia, tachypnea, hypoxia and leukocytosis) most likely secondary to RLL PNA/Aspiration. Patient with severe hypernatremia and hyperglycemia. Wc=242 - corrects to 173 for his hyperglycemia. Free water deficit = 9.4L. Patient has presented with severe hypernatremia in the past, last admission Na was 156 on presentation. Na was appropriately corrected and was 144 on discharge on 02/13/20. Patient clinically dry on exam - received 1L NSS in ER. Na down to 138 today continue free water flushes at 400mL q6 for 1600mL total a day if sodium continues to drop could consider decreasing frequency to q8 follow BMP daily (2) AMS (altered mental status): Patient presents with lethargy, metabolic encephalopathy in setting of severe hypernatremia, sepsis secondary to PNA. Patient has a poor functional baseline. -Correction of underlying medical problems, specifically sodium has been corrected today he is alert, non-verbal, no distress, likely at his baseline (3) RLL pneumonia: Suspect aspiration PNA with sepsis - fever/tachycardia/tachypnea/hypoxia and neutrophil predominant leukocytosis, RLL opacity. Influenza and SARS-CoV-2 negative. Patient with history of aspiration PNA. MRSA nasal screen positive in the past -Follow blood cultures sent from ER: no growth to date -Supplemental O2 as needed to maintain saturation >90% -taper down antibiotics to Rocephin on 02/27, complete 7 days total on 03/02 -Aspiration precautions (4) History of venous thrombosis and embolism: Patient with remote history of DVT and PE in 2018. No bleeding. -Continue Xarelto 20mg po daily (5) Acute and chronic respiratory failure: History of COPD on 2L NC qHS presenting with tachypnea, hypoxia. P resently with no respiratory distress. Lungs diminished in bases but no rhonchi/rales/wheezes. -Continue Ipratropium/Albuterol -Continue Budesonide patient stable on 2-3L NC for several days, his baseline (6) GERD (gastroesophageal reflux disease): Chronic -Continue Omeprazole 20mg per PEG daily (7) Epilepsy: Chronic. Stable. No seizure reported -Continue Keppra and Tegretol (8) Type 2 diabetes mellitus with hyperglycemia: hyperglycemia 02/26 due to tube feeds consult pharmacy for glycemic management continue Lantus 28 units BID and Novolog SS q4 pharmacy working on a discharge plan for basal bolus insulin that will work with his tube feeds will need to be continued at SNF when he is discharged (9) History of CVA (cerebrovascular accident): Patient with right sided hemiparesis, aphasia, s/p PEG tube. Full assist, resides in [place] [facility] -Continue ASA, Atorvastatin, Xarelto -Continue Aspiration precautions -Continue skin care (10) COPD (chronic obstructive pulmonary disease): As above, patient with chronic respiratory failure -Continue home inhalers -O2 as needed (11) HLD (hyperlipidemia): Chronic. Stable -Continue Atorvastatin (12) PVD (peripheral vascular disease): Chronic. Stable -Continue ASA and Atorvastatin (13) CKD (chronic kidney disease): Cr at baseline -Avoid nephrotoxic agents -Renal dosing -Monitor BUN/Cr/electrolytes and UOP F/E/N - TF and free water flushes Ppx - Xarelto Code - DNR/DNI Dispo - CM looking into alternative SNF facility will order COVID testing today since he may require a negative test to go to a different SNF does not need isolation, no clinical suspicion for COVID 19 Admission and Anticipated Discharge Date Admission Date: February 25, 2020 Subjective patient without any acute issues over night labs show that sodium remains stable, 138 today sugars are still labile, pharmacy fine tuning Lantus and Novolog coverage talked with his sister over the phone, plan for SNF closer to her home in [facility] Review of Systems Review of Systems: Unobtainable due to cognitive status Physical Exam Constitutional: well developed, + thin and + frail appearing Eyes: PERRL, conjunctivae normal, anicteric sclerae ENMT: external ear and nose normal, oropharynx normal Neck: trachea midline, no thyromegaly Respiratory: normal respiratory effort, lungs clear to auscultation Cardiovascular: RRR, no murmur, no edema Gastrointestinal (Abdomen): normal bowel sounds, soft, nontender, no hepatosplenomegaly Musculoskeletal: Head/Neck/Chest: normocephalic and head atraumatic Extremities: + abnormal strength (generalized weakness, hemiplegia) and + muscle atrophy; no cyanosis and no clubbing Skin: no rashes, warm and dry Neurologic: CN's II-XI intact bilaterally and + focal motor deficit; + does not move all extremities Speech / Cognition: + expressive aphasia and + abnormal cognition Motor/Sensory: no tremor Psychiatric: Orientation: alert; + not oriented x 3 Lymphatic: no cervical or axillary lymphadenopathy Results & Data Results & Data ([facility]) Vital Signs (Past 12 Hours) Vital Signs Temp Pulse Resp BP Pulse Ox 03/03/20 13:26 90 18 94 03/03/20 07:11 96 H 16 90 03/03/20 06:58 37.3 C 98 H 23 110/73 91 Laboratory Results Laboratory Results - last 24 hr 03/02/20 03/02/20 03/03/20 15:46 20:15 00:03 Sodium Potassium Chloride Carbon Dioxide Anion Gap BUN Creatinine Est Cr Clr Drug Dosing Est GFR ( Amer) Est GFR (Non-Af Amer) BUN/Creatinine Ratio Glucose POC Glucose 141 H 111 H 142 H Calcium 03/03/20 03/03/20 03/03/20 04:21 06:52 07:51 Sodium 138 Potassium 4.6 Chloride 105 Carbon Dioxide 25 Anion Gap 8.0 BUN 12 Creatinine 0.62 Est Cr Clr Drug Dosing 128.8 Est GFR ( Amer) 123.2 Est GFR (Non-Af Amer) 106.3 BUN/Creatinine Ratio 19.5 Glucose 233 H POC Glucose 159 H 232 H Calcium 8.8 03/03/20 12:07 Sodium Potassium Chloride Carbon Dioxide Anion Gap BUN Creatinine Est Cr Clr Drug Dosing Est GFR ( Amer) Est GFR (Non-Af Amer) BUN/Creatinine Ratio Glucose POC Glucose 194 H Calcium Medications Administered Current Inpatient Medications Acetaminophen (Tylenol Soln) 650 mg GT Q4H PRN PRN Reason: Pain or Fever Stop: 03/26/20 23:37 Albuterol (Duoneb) 3 ml INH Q6R [facility] Stop: 03/27/20 00:59 Last Admin: 03/03/20 13:25 Dose: 3 ml Documented by: Aspirin (Aspirin Chew) 81 mg GT DAILY [facility] Stop: 03/27/20 08:59 Last Admin: 03/03/20 08:20 Dose: 81 mg Documented by: Atorvastatin Calcium (Lipitor) 20 mg GT HS [facility] Stop: 03/26/20 23:28 Last Admin: 03/02/20 20:54 Dose: 20 mg Documented by: Bisacodyl (Dulcolax) 10 mg MS UD PRN PRN Reason: Constipation Stop: 03/26/20 23:28 Budesonide (Pulmicort Respules) 0.5 mg INH TIDR [facility] Stop: 03/27/20 06:59 Last Admin: 03/03/20 13:25 Dose: 0.5 mg Documented by: Carbamazepine (Tegretol) 100 mg PO HS [facility] Stop: 03/26/20 23:28 Last Admin: 03/02/20 20:54 Dose: 100 mg Documented by: Carbamazepine (Tegretol) 400 mg PO BID [facility] Stop: 03/26/20 23:28 Last Admin: 03/03/20 08:13 Dose: 400 mg Documented by: Citalopram Hydrobromide (Celexa) 40 mg GT DAILY [facility] Stop: 03/27/20 08:59 Last Admin: 03/03/20 08:11 Dose: 40 mg Documented by: Dextrose (Dextrose 50%) 25 - 50 ml IV UD PRN; Protocol PRN Reason: Hypoglycemia Protocol Stop: 03/26/20 23:28 Last Admin: 03/01/20 21:42 Dose: 25 ml Documented by: Docusate Sodium (Colace) 100 mg GT Q3D [facility] Stop: 03/28/20 08:59 Last Admin: 03/01/20 09:09 Dose: 100 mg Documented by: Enteral Nutritional Formula (Peptamen 1.5 Aron) 1,000 ml PEG .CONTINUOUS [facility]; Protocol Stop: 03/27/20 12:59 Last Admin: 03/02/20 17:16 Dose: 1,000 ml Documented by: Glucagon (Glucagen) 1 mg SQ UD PRN; Protocol PRN Reason: Hypoglycemia Protocol Stop: 03/26/20 23:28 Glucose (Dex4 Glucose) 4 - 8 tabs PO UD PRN; Protocol PRN Reason: Hypoglycemia Protocol Stop: 03/26/20 23:28 Glucose (Glucose 40%) 15 - 30 gm PO UD PRN; Protocol PRN Reason: Hypoglycemia Protocol Stop: 03/26/20 23:28 Guaifenesin (Robitussin Sugar Free Syrup) 200 mg GT Q6H PRN PRN Reason: Cough Stop: 03/26/20 23:28 Ceftriaxone Sodium 2,000 mg/ (Dextrose) 70 mls @ 100 mls/hr IV Q24H [facility]; Protocol Stop: 03/06/20 11:59 Last Infusion: 03/03/20 12:41 Dose: Infused Documented by: Insulin Aspart (Novolog Flexpen) 0 units SC Q4 [facility] Stop: 03/30/20 11:59 Last Admin: 03/03/20 12:17 Dose: 16 units Documented by: Insulin Glargine (Lantus Solostar Pen) 28 units SQ BID [facility]; Protocol Stop: 03/31/20 08:59 Last Admin: 03/03/20 08:09 Dose: 28 units Documented by: Lactic Acid (Amlactin) 1 gm EXT BID [facility] Stop: 03/27/20 08:59 Last Admin: 03/03/20 08:14 Dose: 1 gm Documented by: Lansoprazole (Prevacid) 30 mg GT DAILY [facility] Stop: 03/27/20 08:59 Last Admin: 03/03/20 08:11 Dose: 30 mg Documented by: Levetiracetam (Keppra) 1,000 mg GT BID [facility] Stop: 03/26/20 23:28 Last Admin: 03/03/20 08:10 Dose: 1,000 mg Documented by: Magnesium Hydroxide (Milk Of Magnesia) 30 ml GT DAILY PRN PRN Reason: Constipation Stop: 03/26/20 23:28 Miconazole Nitrate (Desenex) 1 appln TOP BID [facility] Stop: 03/26/20 23:28 Last Admin: 03/03/20 08:14 Dose: 1 appln Documented by: Miscellaneous (Carbohydrates For Hypoglycemia) 15 - 30 gm PO UD PRN PRN Reason: Hypoglycemia Protocol Stop: 03/26/20 23:28 Miscellaneous Information (Consult Glycemic Management Pharmacy) 1 ea N/A UD PRN PRN Reason: Consult Stop: 03/28/20 13:26 Multivitamins/Minerals (Cerovite Liquid) 15 ml GT DAILY [facility] Stop: 03/27/20 08:59 Last Admin: 03/03/20 08:11 Dose: 15 ml Documented by: Nutritional Formula (Prosource No Carb) 30 ml GT DAILY [facility] Stop: 03/28/20 08:59 Last Admin: 03/03/20 08:10 Dose: 30 ml Documented by: Ondansetron HCl (Zofran) 4 mg IV Q6H PRN PRN Reason: Nausea Stop: 03/26/20 23:28 Potassium Chloride (Kristi Ciel Elix) 20 meq PEG BID [facility] Stop: 03/27/20 20:59 Last Admin: 03/03/20 08:11 Dose: 20 meq Documented by: Rivaroxaban (Xarelto) 20 mg PO DAILY [facility] Stop: 03/27/20 08:59 Last Admin: 03/03/20 08:12 Dose: 20 mg Documented by: Saccharomyces Boulardii (Florastor) 250 mg PO TID [facility] Stop: 03/26/20 23:28 Last Admin: 03/03/20 13:13 Dose: Not Given Documented by: Simethicone (Mylicon) 80 mg GT Q6H PRN PRN Reason: Gas Stop: 03/26/20 23:28 Sodium Biphosphate/Sodium Phosphate (Fleet Enema) 118 ml MS DAILY PRN PRN Reason: Constipation Stop: 03/26/20 23:28 Sterile Water (Tube Feeding Water Flush) 1 ea GT Q6 [facility] Stop: 03/31/20 11:59 Last Admin: 03/03/20 11:23 Dose: 1 ea Documented by: Trazodone HCl (Desyrel) 50 mg GT BID [facility] Stop: 03/26/20 23:28 Last Admin: 03/03/20 08:20 Dose: 50 mg Documented by: PG Care Time/CCT Total # of Minutes Spent Total Time Spent with Patient: Total time spent is greater than 50% in coordination of care (as documented) at patient's floor/unit and/or counseling patient: Coding Level of Care Code 62779 Subseq Hosp Care Lvl 2 Diagnoses Acute hypernatremia E87.0 AMS (altered mental status) R40.0 Altered mental status type: somnolence RLL pneumonia J69.0 Aspiration pneumonia type: unspecified Pneumonia type: aspiration pneumonia History of venous thrombosis and embolism Z86.718 Acute and chronic respiratory failure J96.21 Respiratory failure complication: hypoxia GERD (gastroesophageal reflux disease) K21.9 Esophagitis presence: esophagitis presence not specified Epilepsy G40.909 Epilepsy type: unspecified Intractability: not intractable Status epilepticus: without status epilepticus Type 2 diabetes mellitus with hyperglycemia E11.65; Z79.4 Diabetes mellitus [facility] insulin use: with long goods drier use History of CVA (cerebrovascular accident) Z86.73 COPD (chronic obstructive pulmonary disease) J44.9 COPD type: unspecified COPD HLD (hyperlipidemia) E78.5 Hyperlipidemia type: unspecified PVD (peripheral vascular disease) I73.9 CKD (chronic kidney disease) N18.9 Chronic kidney disease stage: unspecified stage (1) AMS (altered mental status) Altered mental status type: somnolence Qualified Code(s): R40.0 - Somnolence (2) RLL pneumonia Aspiration pneumonia type: unspecified Pneumonia type: aspiration pneumonia Qualified Code(s): J69.0 - Pneumonitis due to inhalation of food and vomit (3) Acute and chronic respiratory failure Respiratory failure complication: hypoxia Qualified Code(s): J96.21 - Acute and chronic respiratory failure with hypoxia (4) GERD (gastroesophageal reflux disease) Esophagitis presence: esophagitis presence not specified Qualified Code(s): K21.9 - Gastro-esophageal reflux disease without esophagitis (5) Epilepsy Epilepsy type: unspecified Intractability: not intractable Status epilepticus: without status epilepticus Qualified Code(s): G40.909 - Epilepsy, unspecified, not intractable, without status epilepticus (6) Type 2 diabetes mellitus with hyperglycemia Diabetes mellitus long goods drier insulin use: with [facility] use Qualified Code(s): E11.65 - Type 2 diabetes mellitus with hyperglycemia; Z79.4 - 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
[2020-03-03] MEDS: ATORVASTATIN 20 MG TAB GT SCH (20:16)
[2020-03-03] MEDS: CARBAMAZEPINE 100 MG CHEW TAB PO SCH (20:16)
[2020-03-03] MEDS: PEPTAMEN 1.5 CAL 1,000 ML BAG PEG SCH (20:33)
[2020-03-04] MEDS: TUBE FEEDING WATER FLUSH GT SCH ×4 (00:42→20:28)
[2020-03-04] MEDS: INSULIN ASPART 100 UNITS/ML 3 ML PEN SC SCH ×6 (00:47→20:43)
[2020-03-04] MEDS: ALBUT/IPRATROP 3MG/0.5MG NEB 3 ML VIAL INH SCH ×4 (01:00→19:13)
[2020-03-04 08:10] LABS: BUN Creatinine Ratio 20.1 (10-20); Calcium 9.5 mg/dl (8.5-10.1); Est GFR (African American) 122.4; Est GFR (Non-African American) 105.6; Potassium 3.8 mmol/L (3.5-5.1)
[2020-03-04] MEDS: BUDESONIDE 0.5 MG/2 ML VIAL (PULMICORT) INH SCH ×3 (08:13→19:13)
[2020-03-04] MEDS: AMMONIUM LACTATE 12% LOTION 225 GM BTL EXT SCH ×2 (08:51→21:01)
[2020-03-04] MEDS: MICONAZOLE NITRATE POWDER 43 GM TOP SCH ×2 (08:51→21:00)
--- NOTE | 2020-03-04 08:51 | Hospitalist Progress Note ---
Date of Service March 04, 2020 Assessment & Plan (1) Acute hypernatremia: 64yo C male with multiple medical problems, prior CVA with right hemiplegia, minimally verbal presenting from alf with sepsis (fever, tachycardia, tachypnea, hypoxia and leukocytosis) most likely secondary to RLL PNA/Aspiration. Patient with severe hypernatremia and hyperglycemia. Rd=113 - corrects to 173 for his hyperglycemia. Free water deficit = 9.4L. Patient has presented with severe hypernatremia in the past, last admission Na was 156 on presentation. Na was appropriately corrected and was 144 on discharge on Na normalized continue free water flushes at 400mL q6 for 1600mL total a day follow BMP daily (2) AMS (altered mental status): Patient presents with lethargy, metabolic encephalopathy in setting of severe hypernatremia, sepsis secondary to PNA. Patient has a poor functional baseline. -Correction of underlying medical problems, specifically sodium has been corrected (3) RLL pneumonia: Suspect aspiration PNA with sepsis - fever/tachycardia/tachypnea/hypoxia and neutrophil predominant leukocytosis, RLL opacity. Influenza and SARS-CoV-2 negative.( COVID now negative 01/17 and 02/24) Patient with history of aspiration PNA. MRSA nasal screen positive in the past -Follow blood cultures sent from ER: no growth to date -Supplemental O2 as needed to maintain saturation >90% -taper down antibiotics to Rocephin on 02/27, completed 7 days total on 03/02 -Aspiration precautions (4) History of venous thrombosis and embolism: Patient with remote history of DVT and PE in 2018. No bleeding. -Continue Xarelto 20mg po daily (5) Acute and chronic respiratory failure: History of COPD on 2L NC qHS presenting with tachypnea, hypoxia. Presently with no respiratory distress. Lungs diminished in bases but no rhonchi/rales/wheezes. -Continue Ipratropium/Albuterol -Continue Budesonide patient stable on 2-3L NC for several days, his baseline (6) GERD (gastroesophageal reflux disease): Chronic -Continue Omeprazole 20mg per PEG daily (7) Epilepsy: Chronic. Stable. No seizure reported -Continue Keppra and Tegretol (8) Type 2 diabetes mellitus with hyperglycemia: hyperglycemia 02/26 due to tube feeds consult pharmacy for glycemic management continue Lantus 28 units BID and Novolog SS q4 pharmacy working on a discharge plan for basal bolus insulin that will work with his tube feeds will need to be continued at SNF when he is discharged (9) History of CVA (cerebrovascular accident): Patient with right sided hemiparesis, aphasia, s/p PEG tube. Full assist, resides in a alf -Continue ASA, Atorvastatin, Xarelto -Continue Aspiration precautions -Continue skin care (10) COPD (chronic obstructive pulmonary disease): As above, patient with chronic respiratory failure -Continue home inhalers -O2 as needed (11) HLD (hyperlipidemia): Chronic. Stable -Continue Atorvastatin (12) PVD (peripheral vascular disease): Chronic. Stable -Continue ASA and Atorvastatin (13) CKD (chronic kidney disease): Cr at baseline, Chronic kidney disease is not presenet as GFR and Cr clearance is >100 -Avoid nephrotoxic agents -Renal dosing -Monitor BUN/Cr/electrolytes and UOP F/E/N - TF and free water flushes Ppx - Xarelto Code - DNR/DNI Dispo - CM looking into alternative SNF facility will order COVID testing today since he may require a negative test to go to a different SNF does not need isolation, no clinical suspicion for COVID 19 Admission and Anticipated Discharge Date Admission Date: February 25, 2020 Subjective pt is awake but non verbal, does not respond to y/n questions, tracks me with his eyes. does not seem to be in distress, CM working on disposition Review of Systems Review of Systems: Unobtainable due to cognitive status Physical Exam Physical Exam: The patient appeared chronically ill and debilitated Vital signs as documented. Head exam is normocephalic atraumatic no scleral icterus Neck is without JVD, thyromegaly, or carotid bruits. Lungs are coarse dminished Cardiac exam, Rhythm is regular.. No murmurs, rubs or gallops. Abdominal exam reveals normal bowel sounds, soft non tender, no masses Extremities are nonedematous and both right shiloh pelegia present Neurologic exam is alert and tracks with his eyes does not follow commands Results & Data Results & Data ([facility]) Vital Signs (Past 12 Hours) Vital Signs Temp Pulse Resp BP Pulse Ox 03/04/20 07:15 99.9 F H 107 H 20 102/69 91 03/04/20 01:00 84 18 86 L 03/04/20 00:18 98.1 F 95 H 20 108/73 92 PG Care Time/CCT Total # of Minutes Spent Total Time Spent with Patient: Total time spent is greater than 50% in coordina tion of care (as documented) at patient's floor/unit and/or counseling patient: Coding Level of Care Code 04745 Subseq Hosp Care Lvl 2 Diagnoses Acute hypernatremia E87.0 AMS (altered mental status) R40.0 Altered mental status type: somnolence RLL pneumonia J69.0 Aspiration pneumonia type: unspecified Pneumonia type: aspiration pneumonia History of venous thrombosis and embolism Z86.718 Acute and chronic respiratory failure J96.21 Respiratory failure complication: hypoxia GERD (gastroesophageal reflux disease) K21.9 Esophagitis presence: esophagitis presence not specified Epilepsy G40.909 Epilepsy type: unspecified Intractability: not intractable Status epilepticus: without status epilepticus Type 2 diabetes mellitus with hyperglycemia E11.65; Z79.4 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: with rodent exterminator use History of CVA (cerebrovascular accident) Z86.73 COPD (chronic obstructive pulmonary disease) J44.9 COPD type: unspecified COPD HLD (hyperlipidemia) E78.5 Hyperlipidemia type: unspecified PVD (peripheral vascular disease) I73.9 CKD (chronic kidney disease) N18.9 Chronic kidney disease stage: unspecified stage (1) Type 2 diabetes mellitus with hyperglycemia Diabetes mellitus fpc insulin use: with fpc use Qualified Code(s): E11.65 - Type 2 diabetes mellitus with hyperglycemia; Z79.4 - care home (current) use of insulin (2) Epilepsy Epilepsy type: unspecified Intractability: not intractable Status epilepticus: without status epilepticus Qualified Code(s): G40.909 - Epilepsy, unspecified, not intractable, without status epilepticus (3) Acute and chronic respiratory failure Respiratory failure complication: hypoxia Qualified Code(s): J96.21 - Acute and chronic respiratory failure with hypoxia (4) HLD (hyperlipidemia) Hyperlipidemia type: unspecified Qualified Code(s): E78.5 - Hyperlipidemia, unspecified (5) CKD (chronic kidney disease) Chronic kidney disease stage: unspecified stage Qualified Code(s): N18.9 - Chronic kidney disease, unspecified (6) AMS (altered mental status) Altered mental status type: somnolence Qualified Code(s): R40.0 - Somnolence (7) COPD (chronic obstructive pulmonary disease) COPD type: unspecified COPD Qualified Code(s): J44.9 - Chronic obstructive pulmonary disease, unspecified (8) RLL pneumonia Aspiration pneumonia type: unspecified Pneumonia type: aspiration pneumonia Qualified Code(s): J69.0 - Pneumonitis due to inhalation of food and vomit (9) GERD (gastroesophageal reflux disease) Esophagitis presence: esophagitis presence not specified Qualified Code(s): K21.9 - Gastro-esophageal reflux disease without esophagitis
[2020-03-04] MEDS: INSULIN GLARGINE SOLOSTAR 100 UNITS/ML 3 ML PEN SQ SCH ×2 (08:52→20:44)
[2020-03-04] MEDS: POTASSIUM CHLORIDE 20 MEQ/15 ML UDC PEG SCH ×2 (08:53→20:52)
[2020-03-04] MEDS: LANSOPRAZOLE 30 MG SOLTAB GT SCH (08:53)
[2020-03-04] MEDS: DOCUSATE SODIUM SYRUP 100 MG/10 ML UDC GT SCH (08:53)
[2020-03-04] MEDS: levETIRAcetam ORAL SOLN 100MG/ML GT SCH ×2 (08:53→20:54)
[2020-03-04] MEDS: RIVAROXABAN 20 MG TAB PO SCH (08:53)
[2020-03-04] MEDS: carBAMazepine 200 MG TABLET PO SCH ×2 (08:53→20:56)
[2020-03-04] MEDS: SACCHAROMYCES BOULARDII 250 MG CAP PO SCH ×3 (08:53→20:46)
[2020-03-04] MEDS: PROSOURCE NO CARB 30 ML/PKT GT SCH (08:53)
[2020-03-04] MEDS: CITALOPRAM 40 MG TAB GT SCH (08:54)
[2020-03-04] MEDS: ASPIRIN 81 MG CHEW GT SCH (08:54)
[2020-03-04] MEDS: TRAZODONE HCL 50 MG TAB GT SCH ×2 (08:56→21:03)
[2020-03-04] MEDS: MULTI VIT W/MINERALS LIQUID 15 ML UDP GT SCH (09:16)
--- NOTE | 2020-03-04 10:49 | Pharmacy Report ---
Pharmacy Glycemic Short Note 2 - Date of Service March 04, 2020 - Glycemic Short BSG Results (Last 24 hours): 03/03/20 03/03/20 03/03/20 12:07 16:57 19:57 Glucose POC Glucose 194 H 85 150 H 03/04/20 03/04/20 03/04/20 00:19 04:34 07:12 Glucose 133 H POC Glucose 83 155 H 03/04/20 07:41 Glucose POC Glucose 152 H Outpatient Anti-diabetic Regimen: * Lantus 35 units BID, lispro SSI, metformin 1 gm bid (also on Osmolite via PEG at 50 cc/hr) * A1c = 8.7 02/09/20 INPATIENT GLYCEMIC REGIMEN AND CAUSES OF INSULIN RESISTANCE: ASSESSMENT: * Peptamen remains at goal of 50 mL/hr - provides 38 g of carbs over 4 hours * Likely discharge to SNF in near future PLAN FOR INPATIENT GLYCEMIC CONTROL: * Hold outpatient oral diabetes medications * Basal insulin - continue * Lantus 28 units BID * Bolus insulin - continue * NovoLog per scale q4h to cover continuous tube feeds * Goal Range: Low 110 mg/dL - High 140 mg/dL * Correction Factor: 10 mg/dL/unit * Nutritional / Prandial insulin per carb ratio of 1 unit per 4 grams CHO consumed PLAN FOR DISCHARGE: * To be determined based off SNF capabilities for glycemic control * Could continue current inpatient Lantus 28 units SC BID and add Novolog 10 units SC q6h with sliding scale * Blood Sugar 70-150 administer 0 units * Blood Sugar 151-200 administer 2 units * Blood Sugar 201-250 administer 4 units * Blood Sugar 251-300 administer 6 units * Blood Sugar 301-350 administer 8 units * Blood Sugar 351-400 administer 10 units * Blood Sugar >400 administer 12 units and call MD * If patient requires simplified insulin regimen, and tube feeds remain at similar CHO intake (~226g/day) , would recommend NPH 50 units SQ BID
[2020-03-04] MEDS: PEPTAMEN 1.5 CAL 1,000 ML BAG PEG SCH (17:50)
[2020-03-04] MEDS: ATORVASTATIN 20 MG TAB GT SCH (20:56)
[2020-03-04] MEDS: CARBAMAZEPINE 100 MG CHEW TAB PO SCH (21:08)
[2020-03-05] MEDS: TUBE FEEDING WATER FLUSH GT SCH ×4 (00:34→18:55)
[2020-03-05] MEDS: INSULIN ASPART 100 UNITS/ML 3 ML PEN SC SCH ×6 (00:34→21:00)
[2020-03-05] MEDS: ALBUT/IPRATROP 3MG/0.5MG NEB 3 ML VIAL INH SCH ×5 (01:09→19:25)
[2020-03-05] MEDS: BUDESONIDE 0.5 MG/2 ML VIAL (PULMICORT) INH SCH ×4 (07:01→19:24)
[2020-03-05 07:46] LABS: BUN Creatinine Ratio 17.7 (10-20); Calcium 8.7 mg/dl (8.5-10.1); Creatinine Clr Calc Pharmacy 117.4 ml/min; Est GFR (African American) 117.9; Est GFR (Non-African American) 101.7; Potassium 4.7 mmol/L (3.5-5.1)
--- NOTE | 2020-03-05 08:14 | Hospitalist Progress Note ---
Date of Service March 05, 2020 Assessment & Plan (1) Acute hypernatremia: 64yo C male with multiple medical problems, prior CVA with right hemiplegia, minimally verbal presenting from alf with sepsis (fever, tachycardia, tachypnea, hypoxia and leukocytosis) most likely secondary to RLL PNA/Aspiration. Patient with severe hypernatremia and hyperglycemia. Hyponatremia resolved continue free water flushes at 400mL q6 for 1600mL total a day (2) AMS (altered mental status): Patient presents with lethargy, metabolic encephalopathy in setting of severe hypernatremia, sepsis secondary to PNA. Patient has a poor functional baseline. -Correction of underlying medical problems, specifically sodium has been corrected unclear of the baseline of his encephalopathy patient remains significantly limited (3) RLL pneumonia: Suspect aspiration PNA with sepsis - fever/tachycardia/tachypnea/hypoxia and neutrophil predominant leukocytosis, RLL opacity. Influenza and SARS-CoV-2 negative.( COVID now negative 01/17 and 02/24) Patient with history of aspiration PNA. MRSA nasal screen positive in the past -Follow blood cultures sent from ER: no growth to date -Supplemental O2 as needed to maintain saturation >90% -taper down antibiotics to Rocephin on 02/27, completed 7 days total on 03/02 -Aspiration precautions (4) History of venous thrombosis and embolism: Patient with remote history of DVT and PE in 2018. No bleeding. -Continue Xarelto 20mg po daily (5) Acute and chronic respiratory failure: History of COPD on 2L NC qHS presenting with tachypnea, hypoxia. Presently with no respiratory distress. Lungs diminished in bases but no rhonchi/rales/wheezes. -Continue Ipratropium/Albuterol -Continue Budesonide patient stable on 2-3L NC for several days, his baseline (6) GERD (gastroesophageal reflux disease): Chronic -Continue Omeprazole 20mg per PEG daily (7) Epilepsy: Chronic. Stable. No seizure reported -Continue Keppra and Tegretol (8) Type 2 diabetes mellitus with hyperglycemia: hyperglycemia 02/26 due to tube feeds consult pharmacy for glycemic management continue Lantus 28 units BID and Novolog SS q4 pharmacy working on a discharge plan for basal bolus insulin that will work with his tube feeds will be continued at SNF when he is discharged (9) History of CVA (cerebrovascular accident): Patient with right sided hemiparesis, aphasia, s/p PEG tube. Full assist, resides in a alf -Continue ASA, Atorvastatin, Xarelto -Continues on Aspiration precautions - (10) COPD (chronic obstructive pulmonary disease): As above, patient with chronic respiratory failure -Continue home inhalers -O2 as needed (11) HLD (hyperlipidemia): Chronic. Stable -Continue Atorvastatin (12) PVD (peripheral vascular disease): Chronic. Stable -Continue ASA and Atorvastatin (13) CKD (chronic kidney disease): Cr at baseline, Chronic kidney disease is not presenet as GFR and Cr clearance is >100 -Avoid nephrotoxic agents -Renal dosing -Monitor BUN/Cr/electrolytes and UOP F/E/N - TF and free water flushes, it is imperative the patient has is free water flushes when her of her he is placed Ppx - Xarelto Code - DNR/DNI Dispo - CM looking into alternative SNF facility COVID testing negative 02/24, 03/05- does not need isolation, no clinical suspicion for COVID 19 Admission and Anticipated Discharge Date Admission Date: February 25, 2020 Subjective Patient is chronically ill debilitated and limited. He makes eye contact but then quickly does not follow commands and gazes off the distance he does not make any voice interaction with me in any way Review of Systems Review of Systems: Unobtainable due to cognitive status Physical Exam Physical Exam: The patient appeared chronically ill and debilitated Vital signs as documented. Head exam is normocephalic atraumatic no scleral icterus Neck is without JVD, thyromegaly, or carotid bruits. Lungs are coarse dminished Cardiac exam, Rhythm is regular.. No murmurs, rubs or gallops. Abdominal exam reveals normal bowel sounds, soft non tender, no masses Extremities are nonedematous and both right shiloh pelegia present Neurologic exam is alert and tracks with his eyes does not follow commands Results & Data Results & Data ([facility] [place]) Vital Signs (Past 12 Hours) Vital Signs Temp Pulse Resp BP Pulse Ox 03/05/20 07:14 98.1 F 86 18 106/68 94 03/05/20 07:02 97 H 21 91 03/05/20 01:10 88 18 94 03/04/20 23:32 99.0 F 82 18 103/66 94 PG Care Time/CCT Total # of Minutes Spent Total Time Spent with Patient: Total time spent is greater than 50% in coordination of care (as documented) at patient's floor/unit and/or counseling patient: Coding Level of Care Code 57862 Subseq Hosp Care Lvl 2 Diagnoses Acute hypernatremia E87.0 AMS (altered mental status) R40.0 Altered mental status type: somnolence RLL pneumonia J69.0 Aspiration pneumonia type: unspecified Pneumonia type: aspiration pneumonia History of venous thrombosis and embolism Z86.718 Acute and chronic respiratory failure J96.21 Respiratory failure complication: hypoxia GERD (gastroesophageal reflux disease) K21.9 Esophagitis presence: esophagitis presence not specified Epilepsy G40.909 Epilepsy type: unspecified Intractability: not intractable Status epilepticus: without status epilepticus Type 2 diabetes mellitus with hyperglycemia E11.65; Z79.4 Diabetes mellitus jail insulin use: with jail use History of CVA (cerebrovascular accident) Z86.73 COPD (chronic obstructive pulmonary disease) J44.9 COPD type: unspecified COPD HLD (hyperlipidemia) E78.5 Hyperlipidemia type: unspecified PVD (peripheral vascular disease) I73.9 CKD (chronic kidney disease) N18.9 Chronic kidney disease stage: unspecified stage (1) Type 2 diabetes mellitus with hyperglycemia Diabetes mellitus jail insulin use: with jail use Qualified Code(s): E11.65 - Type 2 diabetes mellitus with hyperglycemia; Z79.4 - FDC (current) use of insulin (2) Epilepsy Epilepsy type: unspecified Intractability: not intractable Status epilepticus: without status epilepticus Qualified Code(s): G40.909 - Epilepsy, unspecified, not intractable, without status epilepticus (3) Acute and chronic respiratory failure Respiratory failure complication: hypoxia Qualified Code(s): J96.21 - Acute and chronic respiratory failure with hypoxia (4) HLD (hyperlipidemia) Hyperlipidemia type: unspecified Qualified Code(s): E78.5 - Hyperlipidemia, unspecified (5) CKD (chronic kidney disease) Chronic kidney disease stage: unspecified stage Qualified Code(s): N18.9 - Chronic kidney disease, unspecified (6) AMS (altered mental status) Altered mental status type: somnolence Qualified Code(s): R40.0 - Somnolence (7) COPD (chronic obstructive pulmonary disease) COPD type: unspecified COPD Qualified Code(s): J44.9 - Chronic obstructive pulmonary disease, unspecified (8) RLL pneumonia Aspiration pneumonia type: unspecified Pneumonia type: aspiration pneumonia Qualified Code(s): J69.0 - Pneumonitis due to inhalation of food and vomit (9) GERD (gastroesophageal reflux disease) Esophagitis presence: esophagitis presence not specified Qualified Code(s): K21.9 - Gastro-esophageal reflux disease without esophagitis
[2020-03-05] MEDS: AMMONIUM LACTATE 12% LOTION 225 GM BTL EXT SCH ×2 (08:33→21:10)
[2020-03-05] MEDS: MICONAZOLE NITRATE POWDER 43 GM TOP SCH ×2 (08:33→21:10)
[2020-03-05] MEDS: carBAMazepine 200 MG TABLET PO SCH ×2 (08:34→21:04)
[2020-03-05] MEDS: PROSOURCE NO CARB 30 ML/PKT GT SCH (08:34)
[2020-03-05] MEDS: levETIRAcetam ORAL SOLN 100MG/ML GT SCH ×2 (08:35→21:02)
[2020-03-05] MEDS: CITALOPRAM 40 MG TAB GT SCH (08:35)
[2020-03-05] MEDS: LANSOPRAZOLE 30 MG SOLTAB GT SCH (08:35)
[2020-03-05] MEDS: MULTI VIT W/MINERALS LIQUID 15 ML UDP GT SCH (08:35)
[2020-03-05] MEDS: SACCHAROMYCES BOULARDII 250 MG CAP PO SCH ×3 (08:35→21:02)
[2020-03-05] MEDS: ASPIRIN 81 MG CHEW GT SCH (08:35)
[2020-03-05] MEDS: RIVAROXABAN 20 MG TAB PO SCH (08:35)
[2020-03-05] MEDS: POTASSIUM CHLORIDE 20 MEQ/15 ML UDC PEG SCH ×2 (08:35→21:06)
[2020-03-05] MEDS: TRAZODONE HCL 50 MG TAB GT SCH ×2 (08:35→21:10)
[2020-03-05] MEDS ORDERED: INSULIN GLARGINE SOLOSTAR 100 UNITS/ML 3 ML PEN SQ SCH ×2 (09:00→21:00)
--- NOTE | 2020-03-05 10:11 | Pharmacy Report ---
Pharmacy Glycemic Short Note 2 - Date of Service March 05, 2020 - Glycemic Short BSG Results (Last 24 hours): Outpatient Anti-diabetic Regimen: * Lantus 35 units BID, lispro SSI, metformin 1 gm bid (also on Osmolite via PEG at 50 cc/hr) * A1c = 8.7 02/09/20 ASSESSMENT: * Peptamen remains at goal of 50 mL/hr - provides 38 g of carbs over 4 hours * Tube feeds were not covered overnight last evening - likely cause of elevated fasting BSG this morning * Discussed with RN to pass along on shift change * Likely discharge to SNF in near future PLAN FOR INPATIENT GLYCEMIC CONTROL: * Hold outpatient oral diabetes medications * Basal insulin - increase * Lantus scale (see EHR for details) * Bolus insulin - continue * NovoLog per scale q4h to cover continuous tube feeds * Goal Range: Low 110 mg/dL - High 140 mg/dL * Correction Factor: 10 mg/dL/unit * Nutritional / Prandial insulin per carb ratio of 1 unit per 4 grams CHO consumed PLAN FOR DISCHARGE: * To be determined based off SNF capabilities for glycemic control * Could continue current inpatient Lantus 30 units SC BID and add Novolog 10 units SC q6h with sliding scale * Blood Sugar 70-150 administer 0 units * Blood Sugar 151-200 administer 2 units * Blood Sugar 201-250 administer 4 units * Blood Sugar 251-300 administer 6 units * Blood Sugar 301-350 administer 8 units * Blood Sugar 351-400 administer 10 units * Blood Sugar >400 administer 12 units and call MD * If patient requires simplified insulin regimen, and tube feeds remain at similar CHO intake (~226g/day) , would recommend NPH 50 units SQ BID
[2020-03-05] MEDS: ATORVASTATIN 20 MG TAB GT SCH (21:05)
[2020-03-05] MEDS: CARBAMAZEPINE 100 MG CHEW TAB PO SCH (21:05)
[2020-03-05] MEDS: PEPTAMEN 1.5 CAL 1,000 ML BAG PEG SCH (21:25)
[2020-03-06] MEDS: ALBUT/IPRATROP 3MG/0.5MG NEB 3 ML VIAL INH SCH ×3 (00:09→13:16)
[2020-03-06] MEDS: TUBE FEEDING WATER FLUSH GT SCH ×3 (00:25→12:27)
[2020-03-06] MEDS: INSULIN ASPART 100 UNITS/ML 3 ML PEN SC SCH ×4 (00:28→12:26)
[2020-03-06] MEDS ORDERED: ALBUT/IPRATROP 3MG/0.5MG NEB 3 ML VIAL NEB PRN (05:02)
[2020-03-06] MEDS: BUDESONIDE 0.5 MG/2 ML VIAL (PULMICORT) INH SCH ×2 (07:32→13:16)
[2020-03-06] MEDS: MICONAZOLE NITRATE POWDER 43 GM TOP SCH (08:25)
[2020-03-06] MEDS: PROSOURCE NO CARB 30 ML/PKT GT SCH (08:25)
[2020-03-06] MEDS: AMMONIUM LACTATE 12% LOTION 225 GM BTL EXT SCH (08:25)
[2020-03-06] MEDS: MULTI VIT W/MINERALS LIQUID 15 ML UDP GT SCH (08:26)
[2020-03-06] MEDS: LANSOPRAZOLE 30 MG SOLTAB GT SCH (08:26)
[2020-03-06] MEDS: RIVAROXABAN 20 MG TAB PO SCH (08:26)
[2020-03-06] MEDS: carBAMazepine 200 MG TABLET PO SCH (08:26)
[2020-03-06] MEDS: POTASSIUM CHLORIDE 20 MEQ/15 ML UDC PEG SCH (08:26)
[2020-03-06] MEDS: levETIRAcetam ORAL SOLN 100MG/ML GT SCH (08:26)
[2020-03-06] MEDS: ASPIRIN 81 MG CHEW GT SCH (08:26)
[2020-03-06] MEDS: SACCHAROMYCES BOULARDII 250 MG CAP PO SCH ×2 (08:26→13:05)
[2020-03-06] MEDS: CITALOPRAM 40 MG TAB GT SCH (08:26)
[2020-03-06] MEDS: TRAZODONE HCL 50 MG TAB GT SCH (08:26)
[2020-03-06 08:45] LABS: BUN Creatinine Ratio 17.5 (10-20); Calcium 8.9 mg/dl (8.5-10.1); Creatinine Clr Calc Pharmacy 118.7 ml/min; Est GFR (African American) 119.4; Potassium 4.2 mmol/L (3.5-5.1)
--- NOTE | 2020-03-06 08:50 | Pharmacy Report ---
Pharmacy Glycemic Short Note 2 - Date of Service March 06, 2020 - Glycemic Short BSG Results (Last 24 hours): Outpatient Anti-diabetic Regimen: * Lantus 35 units BID, lispro SSI, metformin 1 gm bid (also on Osmolite via PEG at 50 cc/hr) * A1c = 8.7 02/09/20 ASSESSMENT: * Peptamen remains at goal of 50 mL/hr - provides 38 g of carbs over 4 hours * Plan is to discharge to SNF * BSGs tend to rebound after recorded BSGs below the goal range - will lower goal range slightly to subtract off less insulin for low BSGs PLAN FOR INPATIENT GLYCEMIC CONTROL: * Hold outpatient oral diabetes medications * Basal insulin - increase * Lantus 30 units SC BID * Bolus insulin - decrease lower end of goal range * NovoLog per scale q4h to cover continuous tube feeds * Goal Range: Low 100 mg/dL - High 140 mg/dL * Correction Factor: 10 mg/dL/unit * Nutritional / Prandial insulin per carb ratio of 1 unit per 4 grams CHO consumed PLAN FOR DISCHARGE: * To be determined based off SNF capabilities for glycemic control * Could continue current inpatient Lantus 30 units SC BID and add Novolog 10 units SC q6h with sliding scale * Blood Sugar 70-150 administer 0 units * Blood Sugar 151-200 administer 3 units * Blood Sugar 201-250 administer 5 units * Blood Sugar 251-300 administer 7 units * Blood Sugar 301-350 administer 9 units * Blood Sugar 351-400 administer 11 units * Blood Sugar >400 administer 13 units and call MD * If patient requires simplified insulin regimen, and tube feeds remain at similar CHO intake (~226g/day) , would recommend NPH 50 units SQ BID
[2020-03-06] MEDS ORDERED: INSULIN GLARGINE SOLOSTAR 100 UNITS/ML 3 ML PEN SQ SCH (09:00)
--- NOTE | 2020-03-06 13:45 | Discharge Summary ---
Date of Service March 06, 2020 Admission HPI Per Admitting Provider Julio Bergman is an unfortunate 64yo C male with history of CVA with right hemiplegia, minimally verbal with expressive aphasia at baseline, COPD with chronic hypoxic respiratory failure, DVT/PE on Xarelto, HTN, Seizure disorder, aspiration PNA s/p PEG-tube placement, DM. Patient resides at [facility], [place]. He was last admitted to [facility] on 02/08/20 with sepsis secondary to LLL PNA, hyperglycemia and lactic acidosis as well as hypernatremia with Cr=910 on arrival. He was treated with IV Vancomycin (history of MRSA) and Zosyn with improvement in symptoms. He was discharged to [facility] on 02/13/20. Of note, patient had negative testing for COVID-19 performed on 01/21 with [facility] positive for Human Metapneumovirus. He had repeat COVID-19 testing performed on 02/11/20 and again today, 02/25/20. He returns today with report of lethargy, fever/SOB and hypoxia. Patient offers no complaints and is non-verbal at baseline. He does not follow commands. On arrival to the ER he was febrile 38.1, tachycardic at 123 bpm, tachypneic at 32bpm saturating 97% on 10L NRB. He was initially placed on Airborne/Contact precautions and COVID-19 PCR was sent which was negative. ER Course: Albuterol 3mL neb, Cefepime 2gm, Levaquin 500mg, NSS x 1L, Vancomycin x 2 gm Principal Diagnosis pneumonia, suspected gram negative hypernatremia chronic swallowing dysfunction requiring peg tube feeding diabetes in poor control due to tube feeds Discharge Exam pt was seen and is in his usual state, no verbal interaction, limited use of left hand respiratory status remains stable Discharge Data Allergies Allergy/AdvReac Type Severity Reaction Status Date / Time bee venom protein (honey bee) Allergy Unknown LISTED ON Verified 02/25/20 19:45 MAR pseudoephedrine Allergy Unknown UNKNOWN Verified 02/25/20 19:45 Consultations 02/25/20 19:53 ED Decision to Admit Stat 02/25/20 23:29 Consult Case Management - Discharge Planning Routine 02/27/20 07:48 Consult Nephrology Routine Ordered Studies 02/25/20 17:59 CT head/brain wo con Stat Hospital Course (1) Acute hypernatremia: 64yo C male with multiple medical problems, prior CVA with right hemiplegia, minimally verbal presenting from care home with sepsis (fever, ta chycardia, tachypnea, hypoxia and leukocytosis) most likely secondary to RLL PNA/Aspiration. Patient with severe hypernatremia and hyperglycemia. Hyponatremia resolved continue free water flushes at 400mL q6 for 1600mL total a day (2) AMS (altered mental status): Patient presents with lethargy, metabolic encephalopathy in setting of severe hypernatremia, sepsis secondary to PNA. Patient has a poor functional baseline. -Correction of underlying medical problems, specifically sodium has been corrected unclear of the baseline of his encephalopathy patient remains significantly limited (3) RLL pneumonia: Suspect aspiration/gram negative PNA with sepsis - fever/tachycardia/tachypnea/hypoxia and neutrophil predominant leukocytosis, RLL opacity. Influenza and SARS-CoV-2 negative.( COVID now negative 01/17 and 02/24) Patient with history of aspiration PNA. MRSA nasal screen positive in the past -Follow blood cultures sent from ER: no growth to date -Supplemental O2 as needed to maintain saturation >90% -taper down antibiotics to Rocephin on 02/27, completed 7 days total on 03/02 -Aspiration precautions (4) History of venous thrombosis and embolism: Patient with remote history of DVT and PE in 2018. No bleeding. -Continue Xarelto 20mg po daily (5) Acute and chronic respiratory failure: History of COPD on 2L NC qHS presenting with tachypnea, hypoxia. Presently with no respiratory distress. Lungs diminished in bases but no rhonchi/rales/wheezes. -Continue Ipratropium/Albuterol -Continue Budesonide patient stable on 2-3L NC for several days, his baseline (6) GERD (gastroesophageal reflux disease): Chronic -Continue Omeprazole 20mg per PEG daily (7) Epilepsy: Chronic. Stable. No seizure reported -Continue Keppra and Tegretol (8) Type 2 diabetes mellitus with hyperglycemia: hyperglycemia 02/26 due to tube feeds consult pharmacy for glycemic management continue Lantus 28 units BID and Novolog SS q4 (9) History of CVA (cerebrovascular accident): Patient with right sided hemiparesis, aphasia, s/p PEG tube. Full assist, resides in a care home -Continue ASA, Atorvastatin, Xarelto -Continues on Aspiration precautions - (10) COPD (chronic obstructive pulmonary disease): As above, patient with chronic respiratory failure -Continue home inhalers -O2 as needed (11) HLD (hyperlipidemia): Chronic. Stable -Continue Atorvastatin (12) PVD (peripheral vascular disease): Chronic. Stable -Continue ASA and Atorvastatin (13) CKD (chronic kidney disease): Cr at baseline, Chronic kidney disease is not presenet as GFR and Cr clearance is >100 F/E/N - TF and free water flushes, it is imperative the patient has is free water flushes when her of her he is placed Ppx - Xarelto Code - DNR/DNI Dispo - CM looking into alternative SNF facility COVID testing negative 02/24, 03/05 does not need isolation, no clinical suspicion for COVID 19 Total Time Total Time Spent Total Time Spent (In Minutes): It required greater than 30 minutes to prepare this patient for discharge Discharge Plan Discharge Items Patient Disposition: Trans Resident Long-Term Care Reason For Visit: HYPERNATREMIA,FEVER/SOB Discharge Diagnosis: hypernatremia chornic hemipelegia Activity: Resume your previous activity Non-emergency contact: Primary Care Provider Call non-emergency contact if: your symptoms worsen Follow-up/Referrals: [facility] [Primary Care Provider] - Diet: Other - See Diet Comment Diet Comment: peptamen 1.5, 1000ml/d plus 400ml of free water via PEG 4 x's a day Addtl Attending Provider Instructions: it is vital that this pt have 400ml of free water 4 times a day, if for some reason the pt does not get his tube feed than his total daily liquid should be the free water plus the tube feeds for a total of 2200 ml of liquids daily please check a chemistry pain once a week for a few weeks to assure that sodium is normal Pending Studies at Discharge: No Stand-Alone Forms: My [facility] Skilled Items Patient informed of condition?: Yes DNR: Yes Discharge Level of Care: Skilled Communicable Disease: No Discharge Prognosis: Stable Lines: None Urinary Catheter: No Medications and DC Order Prescriptions: New insulin aspart U-100 [Novolog Flexpen U-100 Insulin] 100 unit/mL (3 mL) Insulin Pen 1 units SC Q4 Qty: 3 RF: 0 Continued atorvastatin [Lipitor] 20 mg Tablet 20 mg Feeding Tube HS RF: 0 ipratropium-albuterol 0.5 mg-3 mg(2.5 mg base)/3 mL Solution For Nebulization 3 ml INHALATION Q6H RF: 0 trazodone 50 mg Tablet 50 mg Feeding Tube BID RF: 0 guaifenesin [Ri-Tussin] 100 mg/5 mL Liquid 10 ml Feeding Tube Q6H PRN (Reason: Cough) RF: 0 metformin [Glucophage] 1,000 mg Tablet 1,000 mg Feeding Tube BIDM RF: 0 budesonide [Pulmicort] 0.5 mg/2 mL Suspension For Nebulization 0.5 mg INHALATION TID RF: 0 carbamazepine [Tegretol] 100 mg/5 mL Suspension 100 mg Feeding Tube HS RF: 0 levetiracetam [Keppra] 100 mg/mL Solution 10 ml Feeding Tube BID RF: 0 Xarelto 20 mg Tablet 20 mg G-Tube DAILY RF: 0 ammonium lactate [Ivette-Hydrolac] 12 % Cream 1 applic TOPICAL BID RF: 0 acetaminophen 650 mg/20.3 mL Solution 650 mg feeding tube Q6H PRN (Reason: Pain or Fever < 101) RF: 0 docusate sodium 50 mg/5 mL Liquid 100 mg PO Q3D RF: 0 magnesium hydroxide [Milk of Magnesia] 400 mg/5 mL Suspension 30 ml feeding tube UD PRN (Reason: Constipation) RF: 0 bisacodyl [Dulcolax (bisacodyl)] 10 mg Suppository 10 mg MO UD PRN (Reason: Constipation) RF: 0 Enema 19-7 gram/118 mL Enema 118 ml MO UD PRN (Reason: Constipation) RF: 0 omeprazole 20 mg Capsule,Delayed Release(Dr/Ec) 20 mg feeding tube DAILY RF: 0 aspirin 81 mg Tablet,Chewable 81 mg feeding tube DAILY RF: 0 simethicone [Gas Relief (simethicone)] 80 mg Tablet,Chewable 80 mg PO Q6H PRN (Reason: Gas) RF: 0 Stress Formula Tablet 1 tab feeding tube DAILY RF: 0 Florastor 250 mg Capsule 250 mg feeding tube TID RF: 0 Anti-Fungal 2 % Powder 1 applic TOPICAL BID RF: 0 insulin lispro [Humalog U-100 Insulin] 100 unit/mL Solution 8 unit SUBCUT .TODAY RF: 0 Osmolite 1.5 Aron 0.06 gram-1.5 kcal/mL Liquid 0 ea feeding tube .HOLD UNTIL 02/26/20 RF: 0 Liquid Protein Supp 1 dose G-tube BID RF: 0 Changed 100 Ml Free Water Flush 100 ml feeding tube QID Qty: 400 RF: 0 Lantus U-100 Insulin 100 unit/mL Solution 28 unit SUBCUT BID Qty: 0 RF: 0 No Action citalopram [Celexa] 40 mg Tablet 40 mg Feeding Tube DAILY RF: 0 carbamazepine 200 mg/10 mL Suspension 400 mg Feeding Tube BID RF: 0 Discharge Orders: Discharge Order (Routine); Ordered 03/06/20 Ordered By: Aravind Neal Admission Data Admit Date/Time: 02/25/20 20:34 Attending Provider: Aravind Neal Admit Provider: Aminah Callaway Primary Care Provider: [facility] Other Providers: Cristian Dillard ; Rebekah Fraire ; Aminah Callaway Coding Level of Care Code D/C Day Management >30 mins Diagnoses Acute hypernatremia E87.0 AMS (altered mental status) R40.0 Altered mental status type: somnolence RLL pneumonia J69.0 Aspiration pneumonia type: unspecified Pneumonia type: aspiration pneumonia History of venous thrombosis and embolism Z86.718 Acute and chronic respiratory failure J96.21 Respiratory failure complication: hypoxia GERD (gastroesophageal reflux disease) K21.9 Esophagitis presence: esophagitis presence not specified Epilepsy G40.909 Epilepsy type: unspecified Intractability: not intractable Status epilepticus: without status epilepticus Type 2 diabetes mellitus with hyperglycemia E11.65; Z79.4 Diabetes mellitus various exceptionalities teacher insulin use: with various exceptionalities teacher use History of CVA (cerebrovascular accident) Z86.73 COPD (chronic obstructive pulmonary disease) J44.9 COPD type: unspecified COPD HLD (hyperlipidemia) E78.5 Hyperlipidemia type: unspecified PVD (peripheral vascular disease) I73.9 CKD (chronic kidney disease) N18.9 Chronic kidney disease stage: unspecified stage
== END 2020-03-06 15:40 | DRG 871 ==
LOC: ED 17:48 → SUATTDRO 20:34 → 2S 20:34 → 2W 03-01 09:53

== ENCOUNTER 2020-03-07 23:38 | Inpatient (IN) ==
--- NOTE | 2020-03-07 23:47 | Emergency Department Note ---
Impression & Plan Acute respiratory failure, Aspiration pneumonia ED Provider Note Name: KULDIP NAVARRO Age: 64 Sex: M Arrives Via: Ambulance Informant: Sister, EMS, Nursing ED Provider: Daron Ramsay MD Chief Complaint: Respiratory Distress Impression: Acute Respiratory Failure Aspiration Pneumonia Medical Decision Makin yr old male with chronic respiratory issues and frequent hospitalization for aspiration pneumonia with history of CVA, Intellectual diability, PE, gerd, dmii, copd, amongst host of others arrives in acute respiratory distress within a day of being discharged from this facility for similar issues. Lungs and exam consistent with wet/aspiration and without other findings of CHF would suspect this is another aspiration event. Low grade fever and thus given IV antibiotics empirically (vanco as previous MRSA history). Of note, CXR without clear infiltrate but given lung sounds would still consider this pneumonia. Not in sepsis though is in significant respiratory distress and started on Bipap with improvement though still quite tenuous. I had a very long discussion with sister (POA) Trudy Pittman ([phone]) and it is clear both she and he would not want him kept alive on ventilator nor have CPR if cardiac arrest. She is OK with Bipap and medications. Hospitalist involved early on given patient status and he was admitted to hospital. He already just had Covid testing and I think it unlikely that this would be secondary to coronavirus given his history. Prior Medical Record and Triage/Nursing Notes reviewed by Me Additional history obtained from Sister, EMS Differentials:Reactive airway disease, pneumonia, pneumothorax, COPD, CHF, infections, cardiac ischemia, pulmonary embolism, musculoskeletal, gastrointestinal, as well as other pathologies. Vital Signs: reviewed and remarkable for Tachy, tachypnea, mild fever Interventions: saline lock, zosyn iv, vanco iv Labs:Reviewed and remarkable for no significant abnormalities Imaging:X ray results are stated below per my interpretation: Chest: 1 view: No infiltrate, no effusion, normal cardiac border. EKG:Per My Interpretation: Indication SHOB: Sinus Tachy 127 bpm, qtc 447. No Ectopy. No Ischemia. Compared to EKG 02/25/20, no significant changes. Cardiac/Tele Monitoring: Cardiac Monitoring: An Order was placed for continuous cardiac monitoring. The monitor shows a rate of 120 with a sinus tachy rhythm. Consults:Dr Lavelle DEVLIN Hospitalist to admit Plan: Disposition:Hospitalization. Condition: Poor Blood pressure:Normal.No Referral necessary Prescriptions:none PDMP: n/a History of Present Illness:64 / M arrives for evaluation of respiratory failure. Patient arrives from local group home with worsening breathing difficulty this evening. Released from hospital yesterday following aspiration event and has decompensated since then. He was placed on CPAP by EMS prior to arrival with mild improvement in breathing. Not hypoxic for EMS. Patient with history of multiple aspiration events and previous admissions with worsening issues over last few months and frequent hospitalizations. ROS: ROS not possible due to ID and respiratory difficult Past Medical History:See Below Past Surgical History:See Below Family History:See Below Social History:See Below Home Medications:See Below Allergies:See Below Vitals:Blood Pressure: 121/69, Pulse 127, RR 35, T 37.6C, O2 89% on BIPAP Physical Exam: GENERAL: Patient is severely ill appearing and in severe distress. EYES: No scleral icterus, unremarkable pupils. ENT: Mucous membranes moist, no nasal congestion. NECK: No masses appreciated, nomeningismus, trachea is midline. RESPIRATORY: Severe dyspnea/tachypnea, diffusely wet/junky lung sounds CARDIOVASCULAR: Tachy.No murmurs, rubs, gallops appreciated. GASTROINTESTINAL: Abdomen soft, non-tender, no peritonitis.Bowel sounds positive.No masses appreciated. BACK: No midline tenderness, no CVA tenderness EXTREMITIES: Moves left arm/leg periodically, no cyanosis, no edema. NEUROLOGIC: Right sided weakness, non verbal, periodically looking around room. Unable to get further neuro exam SKIN: No rash, no jaundice, no diaphoresis. ED Course: Times/Reassessments: multiple, slowly improving on bipap Critical Care: I have personally spent 35 minutes of critical care time in the direct management of this patient. Acute respiratory failure requiring bipap and end of life discussions. This was a life/limb threatening event. This 35 minutes is in excess of all separately billable procedures. 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 History of CVA (cerebrovascular accident) (Acute) 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 History of venous thrombosis and embolism HLD (hyperlipidemia) (Chronic) Hypertension Pneumonia (Acute) Pressure ulcer of right buttock, stage 2 PVD (peripheral vascular disease) Tinea unguium Unspecified mood [affective] disorder Surgical History Status post insertion of percutaneous endoscopic gastrostomy (PEG) tube Surgical history unknown Social History Preferred Language: Greek Communication Ability: Impaired Emergency Room Registered Nurse Required: No Beliefs That Will Affect Care: None marital status: Single Current Living Situation: [facility] Current Living Situation Comment: [facility] current occupational status: disabled Feels Safe at Home: Yes Smoking Status: Unknown if ever smoked Allergies Allergies Allergy/AdvReac Type Severity Reaction Status Date / Time bee venom protein (honey bee) Allergy Unknown LISTED ON Verified 03/08/20 00:21 MAR pseudoephedrine Allergy Unknown UNKNOWN Verified 03/08/20 00:21 Home Meds Home Medications Medication Instructions Recorded Confirmed Xarelto 20 mg G-TUBE DAILY 11/01/18 03/08/20 atorvastatin [Lipitor] 20 mg FEEDING TUBE HS 11/01/18 03/08/20 budesonide [Pulmicort] 0.5 mg INHALATION TID 11/01/18 03/08/20 carbamazepine 400 mg FEEDING TUBE BID 11/01/18 03/08/20 carbamazepine [Tegretol] 100 mg FEEDING TUBE HS 11/01/18 03/08/20 citalopram [Celexa] 40 mg FEEDING TUBE DAILY 11/01/18 03/08/20 guaifenesin [Ri-Tussin] 10 ml FEEDING TUBE Q6H 11/01/18 03/08/20 ipratropium-albuterol 3 ml INHALATION Q6H 11/01/18 03/08/20 levetiracetam [Keppra] 10 ml FEEDING TUBE BID 11/01/18 03/08/20 metformin [Glucophage] 1,000 mg FEEDING TUBE BIDM 11/01/18 03/08/20 trazodone 50 mg FEEDING TUBE BID 11/01/18 03/08/20 acetaminophen 650 mg FEEDING TUBE Q6H PRN 10/04/19 03/08/20 ammonium lactate [Ivette-Hydrolac] 1 applic TOPICAL BID 10/04/19 03/08/20 Enema 118 ml TX UD PRN 02/08/20 03/08/20 Saccharomyces boulardii [Florastor] 250 mg FEEDING TUBE TID 02/08/20 03/08/20 Stress Formula 1 tab FEEDING TUBE DAILY 02/08/20 03/08/20 aspirin 81 mg FEEDING TUBE DAILY 02/08/20 03/08/20 bisacodyl [Dulcolax (bisacodyl)] 10 mg TX UD PRN 02/08/20 03/08/20 docusate sodium 100 mg PO Q3D 02/08/20 03/08/20 magnesium hydroxide [Milk of 30 ml FEEDING TUBE UD PRN 02/08/20 03/08/20 Magnesia] omeprazole 20 mg FEEDING TUBE DAILY 02/08/20 03/08/20 simethicone [Gas Relief 80 mg PO Q6H PRN 02/08/20 03/08/20 (simethicone)] Anti-Fungal 1 applic TOPICAL BID 02/25/20 03/08/20 Liquid Protein Supp 1 dose G-TUBE BID 02/25/20 03/08/20 100 Ml Free Water Flush 400 ml FEEDING TUBE QID 03/08/20 03/08/20 nut.tx.impaired digest fxn 1 ea FEEDING TUBE CONT 03/08/20 03/08/20 [Peptamen 1.5] Previous Rx's Medication Instructions Recorded Lantus U-100 Insulin 28 unit SUBCUT BID #0 ml 03/06/20 Results & Data (ED) Vital Signs Vital Signs - 24 hr 03/07/20 23:45 03/07/20 23:47 03/07/20 23:52 Temperature 37.6 C H Temperature Source Oral Pulse Rate 132 H 129 H 130 H Pulse Rate from SpO2 Sensor 139 H Respiratory Rate 30 H 26 H 28 H Respiratory Effort / Characteristics Labored Respiratory Pattern Tachypnea Blood Pressure 127/92 127/92 Blood Pressure Mean 96 103 Pulse Oximetry 89 L 100 100 Oxygen Delivery Method BiPAP Fraction of Inspired Oxygen 50 Sepsis Recent Fever Within 48 Hours Yes Sepsis New/Unexplained Change in Mental Status Yes Sepsis Action Taken by Nursing Physician Notified 03/08/20 00:00 03/08/20 00:30 03/08/20 01:00 Temperature Temperature Source Pulse Rate 126 H 121 H 111 H Pulse Rate from SpO2 Sensor 129 H 124 H 112 H Respiratory Rate 28 H 13 19 Respiratory Effort / Characteristics Respiratory Pattern Blood Pressure 120/84 115/76 Blood Pressure Mean 96 99 Pulse Oximetry 92 96 99 Oxygen Delivery Method BiPAP BiPAP Fraction of Inspired Oxygen 50 50 Sepsis Recent Fever Within 48 Hours Sepsis New/Unexplained Change in Mental Status Sepsis Action Taken by Nursing 03/08/20 01:30 Temperature Temperature Source Pulse Rate 108 H Pulse Rate from SpO2 Sensor 108 H Respiratory Rate 23 Respiratory Effort / Characteristics Respiratory Pattern Blood Pressure Blood Pressure Mean Pulse Oximetry 98 Oxygen Delivery Method BiPAP Fraction of Inspired Oxygen 50 Sepsis Recent Fever Within 48 Hours Sepsis New/Unexplained Change in Mental Status Sepsis Action Taken by Nursing Laboratory Data Result diagrams: 03/08/20 00:25 03/08/20 00:25 Lab Results 03/08/20 03/08/20 03/08/20 Range/Units 00:15 00:25 00:25 WBC 12.75 H (4.8-10.8) K/uL RBC 3.75 L (4.7-6.1) M/uL Hgb 12.2 L (14.0-18.0) g/dL Hct 38.3 L (42-52) % MCV 102.1 H (80-100) fL MCH 32.5 (25-34) pg MCHC 31.9 L (32-36) g/dL RDW Std Deviation 53.3 H (36.4-46.3) fL RDW Coeff of Nick 14.6 H (11.5-14.5) % Plt Count 269 (130-400) K/uL MPV 10.3 (7.4-10.4) fL Immature Gran % (Auto) 0.2 % Neut % (Auto) 85.2 % Lymph % (Auto) 7.9 % Kimball % (Auto) 6.0 % Eos % (Auto) 0.5 % Baso % (Auto) 0.2 % Immature Gran # (Auto) 0.03 H (0.00-0.02) K/uL Neut # (Auto) 10.86 H (1.4-6.5) K/uL Lymph # (Auto) 1.01 L (1.2-3.4) K/uL Kimball # (Auto) 0.76 H (0.11-0.59) K/uL Eos # (Auto) 0.07 (0-0.5) K/uL Baso # (Auto) 0.02 (0-0.2) K/uL PT 10.6 (9.0-12.0) Seconds INR 1.0 (0.9-1.1) VBG pH (7.36-7.41) VBG pCO2 (38-50) mmHg VBG pO2 mmHg VBG HCO3 mmol/L VBG O2 Saturation % VBG Base Excess mEq/L Barometric Pressure mm/Hg Sodium (136-145) mmol/L Potassium (3.5-5.1) mmol/L Chloride (98-107) mmol/L Carbon Dioxide (21-32) mmol/L Anion Gap (3-11) BUN (7-18) mg/dl Creatinine (0.6-1.4) mg/dl Est Cr Clr Drug Dosing Est GFR ( Amer) Est GFR (Non-Af Amer) BUN/Creatinine Ratio (10-20) Glucose (70-99) mg/dl Calcium (8.5-10.1) mg/dl Magnesium (1.8-2.4) mg/dl Total Bilirubin (0.2-1) mg/dl Direct Bilirubin (0-0.2) mg/dl AST (15-37) U/L ALT (12-78) U/L Alkaline Phosphatase (45-117) U/L Troponin I (0-0.045) ng/ml Total Protein (6.4-8.2) gm/dl Albumin (3.4-5.0) gm/dl Urine Color Dark Yellow Urine Appearance Turbid A (Clear) Urine pH 5.0 (4.5-7.5) Ur Specific [place] 1.029 (1.000-1.030) Urine Protein 2+ H (Negative) Urine Glucose (UA) Negative (Negative) Urine Ketones Trace H (Negative) Urine Blood 3+ H (Negative) Urine Nitrite Negative (Negative) Urine Bilirubin Negative (Negative) Urine Urobilinogen Negative (Negative) Ur Leukocyte Esterase 2+ H (Negative) Urine WBC (Auto) >30 H (0-5) /hpf Urine RBC (Auto) >30 H (0-4) /hpf U Hyaline Cast (Auto) 1-5 (0-5) /lpf U Epithel Cells (Auto) 10-20 H (0-5) /lpf Urine Bacteria (Auto) Negative (Negative) Granular Casts 1-5 H (0) /lpf Urine Yeast Budding w/ Hyphae A (None Prsent) 03/08/20 03/08/20 Range/Units 00:25 00:25 WBC (4.8-10.8) K/uL RBC (4.7-6.1) M/uL Hgb (14.0-18.0) g/dL Hct (42-52) % MCV (80-100) fL MCH (25-34) pg MCHC (32-36) g/dL RDW Std Deviation (36.4-46.3) fL RDW Coeff of Nick (11.5-14.5) % Plt Count (130-400) K/uL MPV (7.4-10.4) fL Immature Gran % (Auto) % Neut % (Auto) % Lymph % (Auto) % Kimball % (Auto) % Eos % (Auto) % Baso % (Auto) % Immature Gran # (Auto) (0.00-0.02) K/uL Neut # (Auto) (1.4-6.5) K/uL Lymph # (Auto) (1.2-3.4) K/uL Kimball # (Auto) (0.11-0.59) K/uL Eos # (Auto) (0-0.5) K/uL Baso # (Auto) (0-0.2) K/uL PT (9.0-12.0) Seconds INR (0.9-1.1) VBG pH 7.31 L (7.36-7.41) VBG pCO2 64 H (38-50) mmHg VBG pO2 32 mmHg VBG HCO3 31 mmol/L VBG O2 Saturation < 60.0 % VBG Base Excess 3.2 mEq/L Barometric Pressure 736.9 mm/Hg Sodium 137 (136-145) mmol/L Potassium 4.2 (3.5-5.1) mmol/L Chloride 100 (98-107) mmol/L Carbon Dioxide 30 (21-32) mmol/L Anion Gap 7.0 (3-11) BUN 14 (7-18) mg/dl Creatinine 0.77 (0.6-1.4) mg/dl Est Cr Clr Drug Dosing Not Reportable Est GFR ( Amer) 112.7 Est GFR (Non-Af Amer) 97.3 BUN/Creatinine Ratio 18.5 (10-20) Glucose 248 H (70-99) mg/dl Calcium 8.9 (8.5-10.1) mg/dl Magnesium 1.7 L (1.8-2.4) mg/dl Total Bilirubin 0.2 (0.2-1) mg/dl Direct Bilirubin < 0.1 (0-0.2) mg/dl AST 16 (15-37) U/L ALT 21 (12-78) U/L Alkaline Phosphatase 98 (45-117) U/L Troponin I < 0.015 (0-0.045) ng/ml Total Protein 7.4 (6.4-8.2) gm/dl Albumin 2.4 L (3.4-5.0) gm/dl Urine Color Urine Appearance (Clear) Urine pH (4.5-7.5) Ur Specific [place] (1.000-1.030) Urine Protein (Negative) Urine Glucose (UA) (Negative) Urine Ketones (Negative) Urine Blood (Negative) Urine Nitrite (Negative) Urine Bilirubin (Negative) Urine Urobilinogen (Negative) Ur Leukocyte Esterase (Negative) Urine WBC (Auto) (0-5) /hpf Urine RBC (Auto) (0-4) /hpf U Hyaline Cast (Auto) (0-5) /lpf U Epithel Cells (Auto) (0-5) /lpf Urine Bacteria (Auto) (Negative) Granular Casts (0) /lpf Urine Yeast (None Prsent) Administered Medications Sodium Chloride (Nss 1000ml) 1,000 mls @ 80 mls/hr IV .[id number] Stop: 03/08/20 15:01 Last Admin: 03/08/20 03:25 Dose: 80 mls/hr Documented by: [id number] Magnesium Sulfate/Dextrose (Magnesium Sulfate / D5w) 1 gm in 100 mls @ 50 mls/hr IV ONE ONE Stop: 03/08/20 04:31 Last Admin: 03/08/20 03:25 Dose: 50 mls/hr Documented by: [id number] Discontinued Medications Piperacillin Sod/Tazobactam Sod (Zosyn) 4.5 gm in 120 mls @ 240 mls/hr IV NOW ONE Stop: 03/08/20 01:04 Last Infusion: 03/08/20 01:20 Dose: 0 mls/hr Documented by: [id number] Admin: 03/08/20 00:40 Dose: 240 mls/hr Documented by: [id number] Vancomycin HCl 1,750 mg/ (Sodium Chloride) 535 mls @ 200 mls/hr IV NOW ONE Stop: 03/08/20 03:15 Last Admin: 03/08/20 01:20 Dose: 200 mls/hr Documented by: [id number] Discharge Plan Visit Data *Final* Discharge Date/Time: 03/08/20 02:10 Chief Complaint: Respiratory Problems Stated Complaint: RESPIRATORY DISTRESS/ALTERED MENTAL STATUS Other Complaint: Altered Mental Status ED Provider: Daron Ramsay Discharge Problem: Acute respiratory failure, Aspiration pneumonia Patient Disposition: Admitted As Inpatient Discharge Instructions Interventions: ED Discharge Assessment Last Done: 03/08/20 02:10 Discharge Problem: Acute respiratory failure Qualifiers: Respiratory failure complication: hypoxia Qualified Code(s): J96.01 - Acute respiratory failure with hypoxia Aspiration pneumonia Qualifiers: Aspiration pneumonia type: due to gastric secretions Laterality: unspecified laterality Lung location: unspecified part of lung Qualified Code(s): J69.0 - Pneumonitis due to inhalation of food and vomit
[2020-03-08] MEDS ORDERED: PIPERACILLIN/TAZOBACTAM 4.5 GM/120 ML BAG IV ONE (00:35)
[2020-03-08] MEDS ORDERED: VANCOMYCIN HCL 1,750 MG in SODIUM CHLORIDE 0.9% 500 ML IV ONE (00:35)
[2020-03-08] MEDS ORDERED: PIPERACILL/TAZOBAC CONSULT ACTIVE PRN (00:35)
[2020-03-08] MEDS ORDERED: VANCOMYCIN CONSULT ACTIVE PRN (00:35)
[2020-03-08 00:36] LABS: Hematocrit (blood only) 38.3 % (42-52); Hemoglobin 12.2 g/dL (14.0-18.0); Mean Corpuscular Hemoglobin 32.5 pg (25-34); Mean Corpuscular Hgb Conc 31.9 g/dL (32-36); Mean Corpuscular Volume 102.1 fL (80-100); Mean Platelet Volume 10.3 fL (7.4-10.4); Platelet Count 269 K/uL (130-400); RDW Coefficient of Variation 14.6 % (11.5-14.5); RDW Standard Deviation 53.3 fL (36.4-46.3); Red Blood Count 3.75 M/uL (4.7-6.1); White Blood Count 12.75 K/uL (4.8-10.8)
[2020-03-08 00:38] LABS: Appearance Urine Turbid (Clear); Bacteria Urine Automated Negative (Negative); Bilirubin Urine Negative (Negative); Blood Urine 3+ (Negative); Color Urine Dark Yellow; Glucose Urine UA Negative (Negative); Ketones Urine Trace (Negative); Leukocyte Esterase Urine 2+ (Negative); Nitrite Urine Negative (Negative); Protein Urine 2+ (Negative); Specific Gravity Urine 1.029 (1.000-1.030); Urobilinogen Urine Negative (Negative); WBC Urine Automated >30 /hpf (0-5)
[2020-03-08 00:43] LABS: Base Excess VBG 3.2 mEq/L; HCO3 VBG 31 mmol/L; PCO2 VBG 64 mmHg (38-50); PO2 VBG 32 mmHg; pH VBG 7.31 (7.36-7.41)
[2020-03-08 00:44] LABS: Prothrombin Time 10.6 Seconds (9.0-12.0)
[2020-03-08 00:49] LABS: Oxygen Saturation VBG < 60.0 %
[2020-03-08 00:52] LABS: Alanine Aminotransferase 21 U/L (12-78); Albumin Level 2.4 gm/dl (3.4-5.0); Aspartate Aminotransferase 16 U/L (15-37); BUN Creatinine Ratio 18.5 (10-20); Bilirubin Direct < 0.1 mg/dl (0-0.2); Blood Urea Nitrogen 14 mg/dl (7-18); Calcium 8.9 mg/dl (8.5-10.1); Carbon Dioxide 30 mmol/L (21-32); Chloride 100 mmol/L (98-107); Est GFR (African American) 112.7; Est GFR (Non-African American) 97.3; Glucose 248 mg/dl (70-99); Magnesium 1.7 mg/dl (1.8-2.4); Potassium 4.2 mmol/L (3.5-5.1); Sodium 137 mmol/L (136-145)
[2020-03-08 00:57] LABS: Alkaline Phosphatase 98 U/L (45-117); Bilirubin,Total 0.2 mg/dl (0.2-1); Total Protein 7.4 gm/dl (6.4-8.2); Troponin I < 0.015 ng/ml (0-0.045)
[2020-03-08 01:12] LABS: Basophils # (auto) 0.02 K/uL (0-0.2); Basophils % (auto) 0.2 %; Eosinophils # (auto) 0.07 K/uL (0-0.5); Eosinophils % (auto) 0.5 %; Immature Granulocytes # (auto) 0.03 K/uL (0.00-0.02); Immature Granulocytes % (auto) 0.2 %; Lymphocytes # (auto) 1.01 K/uL (1.2-3.4); Lymphocytes % (auto) 7.9 %; Monocytes # (auto) 0.76 K/uL (0.11-0.59); Neutrophils # (auto) 10.86 K/uL (1.4-6.5); Neutrophils % (auto) 85.2 %
[2020-03-08 01:21] LABS: RBC Urine Automated >30 /hpf (0-4)
--- NOTE | 2020-03-08 02:03 | History & Physical Report ---
Date of Service March 08, 2020 Assessment & Plan (1) Aspiration pneumonia: Mr. Julio Bergman is a 64 y/o male with past medical history of prior CVA with right hemiplegia, aspiration pneumonia, remote DVT and PE, Acute on chronic respiratory faiure, GERD, epilepsy, DM insulin dependent, MRSA, COPD, HLD, PVD, CKD, feeding tube dependent, who presented from local SNF with acute on chronic respiratory failure from reoccurring aspiration pneumonia. - In the ED, he was treated for aspiration pneumonia and started on Vanc and Zosyn. - Continue with Vanc and Zosyn - Numerous prior MRSA positive nares, isolation precautions ordered. 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 - Tylenol IV PRN for fever - C/w with home tube feeds, consult chiropractic physician for recs - Old records were reviewed - C/w home free water flushes - Prior history of hypernatremia from free water deficits, follow and replace as needed. - c/w home probiotic - He has had recent negative COVID testing on 03/05/20 (3 days ago), 02/25/20, 02/11/20. No current need for testing. FENGI: Pantoprazole 40mg PEG, c/w home gtube feeds, NSS @ 80mL/hr DVT ppx: c/w home Xarelto Dipso: PCU tele Code: DNR/DNI (2) Acute and chronic respiratory failure: History of COPD on 2L NC qHS presenting with tachypnea, hypoxia. Presently stable on Bipap with adequate oxygenation on BiPAP. -from aspiration pneumonia -ABG in ED consistent with Respiratory Acidosis -Continue Ipratropium/Albuterol -Continue Budesonide -Supplemental O2 as needed to maintain saturations 90% (3) Hypomagnesemia: 1.7 in ED, ordered Magnesium IV 1gm Repeat in AM (4) Type 2 diabetes mellitus with hyperglycemia: - Insulin dependent on metformin as well. - Hold Metformin and consult pharmacist for recs (5) Epilepsy: - Stable. No seizure reported - Continue Keppra and Tegretol (6) History of venous thrombosis and embolism: Patient with remote history of DVT and PE in 2018. No bleeding. -Continue Xarelto 20mg po daily (7) Dysphasia as late effect of cerebrovascular accident (CVA): Patient with right sided hemiparesis, aphasia, s/p PEG tube. Full assist, resides in a [facility] -Continue ASA, Atorvastatin, Xarelto -Continue Aspiration precautions -Continue skin care (8) GERD (gastroesophageal reflux disease): home PPI NF - Pantoprazole 40mg PEG qAM (9) COPD (chronic obstructive pulmonary disease): As above, patient with chronic respiratory failure -Continue home inhalers (10) HLD (hyperlipidemia): c/w home atorvastatin (11) PVD (peripheral vascular disease): c/w home atorvastatin (12) CKD (chronic kidney disease): reported history of CKD currently WNL in ED Admission and Anticipated Discharge Date Admission Date: 03/08/20 Anticipated date of discharge: 03/11/20 History of Present Illness Chief Complaint: Respiratory Failure Primary Care Provider: [facility] Caveat: History limited by - intellectual disability, respiratory distress. Mr. Julio Bergman is a 64 y/o male with past medical history of prior CVA with right hemiplegia, aspiration pneumonia, remote DVT and PE, Acute on chronic respiratory faiure, GERD, epilepsy, DM insulin dependent, MRSA, COPD, HLD, PVD, CKD, feeding tube dependent, who prensented from local SNF with worsening shortness of breath which started sometime this evening. He was discharged yesterday from [facility] after a 10 day hospitalization for same, aspiration pneumonia. He has had numerous episodes of aspiration pneumonia. 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 He has frequent hospitalizations with progressive worsening health. He is non-verbal in room. He is currently on BiPAP. In the ED, he was treated for aspiration pneumonia and started on Vanc and Zosyn. Allergies Allergy/AdvReac Type Severity Reaction Status Date / Time bee venom protein (honey bee) Allergy Unknown LISTED ON Verified 03/08/20 00:21 MAR pseudoephedrine Allergy Unknown UNKNOWN Verified 03/08/20 00:21 Home Medications Home Medications Medication Instructions Recorded Confirmed Type Xarelto 20 mg G-TUBE DAILY 11/01/18 03/08/20 History atorvastatin [Lipitor] 20 mg FEEDING TUBE HS 11/01/18 03/08/20 History budesonide [Pulmicort] 0.5 mg INHALATION TID 11/01/18 03/08/20 History carbamazepine 400 mg FEEDING TUBE BID 11/01/18 03/08/20 History carbamazepine [Tegretol] 100 mg FEEDING TUBE HS 11/01/18 03/08/20 History citalopram [Celexa] 40 mg FEEDING TUBE DAILY 11/01/18 03/08/20 History guaifenesin [Ri-Tussin] 10 ml FEEDING TUBE Q6H 11/01/18 03/08/20 History ipratropium-albuterol 3 ml INHALATION Q6H 11/01/18 03/08/20 History levetiracetam [Keppra] 10 ml FEEDING TUBE BID 11/01/18 03/08/20 History metformin [Glucophage] 1,000 mg FEEDING TUBE BIDM 11/01/18 03/08/20 History trazodone 50 mg FEEDING TUBE BID 11/01/18 03/08/20 History acetaminophen 650 mg FEEDING TUBE Q6H PRN 10/04/19 03/08/20 History ammonium lactate [Ivette-Hydrolac] 1 applic TOPICAL BID 10/04/19 03/08/20 History Enema 118 ml ME UD PRN 02/08/20 03/08/20 History Saccharomyces boulardii [Florastor] 250 mg FEEDING TUBE TID 02/08/20 03/08/20 History Stress Formula 1 tab FEEDING TUBE DAILY 02/08/20 03/08/20 History aspirin 81 mg FEEDING TUBE DAILY 02/08/20 03/08/20 History bisacodyl [Dulcolax (bisacodyl)] 10 mg ME UD PRN 02/08/20 03/08/20 History docusate sodium 100 mg PO Q3D 02/08/20 03/08/20 History magnesium hydroxide [Milk of 30 ml FEEDING TUBE UD PRN 02/08/20 03/08/20 History Magnesia] omeprazole 20 mg FEEDING TUBE DAILY 02/08/20 03/08/20 History simethicone [Gas Relief 80 mg PO Q6H PRN 02/08/20 03/08/20 History (simethicone)] Anti-Fungal 1 applic TOPICAL BID 02/25/20 03/08/20 History Liquid Protein Supp 1 dose G-TUBE BID 02/25/20 03/08/20 History Lantus U-100 Insulin 28 unit SUBCUT BID #0 ml 03/06/20 03/08/20 Rx 100 Ml Free Water Flush 400 ml FEEDING TUBE QID 03/08/20 03/08/20 History nut.tx.impaired digest fxn 1 ea FEEDING TUBE CONT 03/08/20 03/08/20 History [Peptamen 1.5] Past Med/Surg History Medical History (Updated 03/08/20 @ 03:37 by Daron Ramsay MD) Aphasia Asthma Chronic respiratory failure with hypoxia CKD (chronic kidney disease) (Chronic) stage 2 Conversion disorder with seizures or convulsions COPD (chronic obstructive pulmonary disease) (Acute) Diabetes (Chronic) type 2 Difficulty in walking Dysphasia as late effect of cerebrovascular accident (CVA) (Chronic) Epilepsy (Chronic) Gastrostomy infection Generalized muscle weakness GERD (gastroesophageal reflux disease) 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 History of CVA (cerebrovascular accident) (Acute) 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 History of venous thrombosis and embolism HLD (hyperlipidemia) (Chronic) Hypertension Pneumonia (Acute) Pressure ulcer of right buttock, stage 2 PVD (peripheral vascular disease) Tinea unguium Unspecified mood [affective] disorder Surgical History Status post insertion of percutaneous endoscopic gastrostomy (PEG) tube Surgical history unknown Social History Preferred Language: [place] Communication Ability: Unable Mushroom Packer Required: No Beliefs That Will Affect Care: None marital status: Single Current Living Situation: Assisted Current Living Situation Comment: [place] current occupational status: disabled Feels Safe at Home: Yes Smoking Status: Unknown if ever smoked Review of Systems Review of Systems: Unobtainable due to cognitive status Physical Exam Constitutional: + ill appearing and comfortable Eyes: PERRL, conjunctivae normal, anicteric sclerae Neck: normal visual inspection and trachea midline Respiratory: coarse inspiratory and expiratory breath sounds diffusely with diffuse wheezing. Cardiovascular: Rate/Rhythm: regular rhythm and + tachycardic Extremities: no edema Gastrointestinal (Abdomen): peg tube intact without signs of surrounding infection Musculoskeletal: Head/Neck/Chest: normocephalic and head atraumatic Neurologic: awake able to follow commands Psychiatric: Orientation: alert Eye Contact: good eye contact Results & Data Results & Data ([facility]) Vital Signs (Past 12 Hours) Vital Signs Temp Pulse Resp BP Pulse Ox 03/08/20 00:30 121 H 13 115/76 96 03/08/20 00:00 126 H 28 H 120/84 92 03/07/20 23:52 130 H 28 H 100 03/07/20 23:47 37.6 C H 129 H 26 H 127/92 100 03/07/20 23:45 132 H 30 H 127/92 89 L Code Status & VTE Plan Code Status DNR/DNI VTE Prophylaxis Plan VTE Prophylaxis will be ordered: Yes Supervising Physician Co-Signing Physician Notes Attending addendum: I have physically seen this patient, have supervised the medical residents activities, and agree with the H&P unless as otherwise noted. Assessment and Plan: Acute on chronic respiratory failure with hypoxia/recurrent aspiration pneumonia- Continue vancomycin IV and Zosyn IV Continue n.p.o. status. Continue BiPAP with serial ABGs. Follow PEG tube feeds status and resume his meds. Follow blood cultures Negative COVID testing on 02/24 and 03/05 CODE STATUS reviewed with POA sister, who again confirmed DNR/DNI status. Remainder of orders and notations as noted. Resident Activity Tracking Resident Involvement: Resident Care Provided Care Provided: Adult Hospital Medicine (1) Type 2 diabetes mellitus with hyperglycemia Diabetes mellitus termite treater insulin use: with termite treater use Qualified Code(s): E11.65 - Type 2 diabetes mellitus with hyperglycemia; Z79.4 - termite treater (current) use of insulin (2) Epilepsy Epilepsy type: unspecified Intractability: not intractable Status epilepticus: without status epilepticus Qualified Code(s): G40.909 - Epilepsy, unspecified, not intractable, without status epilepticus (3) Acute and chronic respiratory failure Respiratory failure complication: hypoxia Qualified Code(s): J96.21 - Acute and chronic respiratory failure with hypoxia (4) HLD (hyperlipidemia) Hyperlipidemia type: unspecified Qualified Code(s): E78.5 - Hyperlipidemia, unspecified (5) CKD (chronic kidney disease) Chronic kidney disease stage: unspecified stage Qualified Code(s): N18.9 - Chronic kidney disease, unspecified (6) Aspiration pneumonia Aspiration pneumonia type: unspecified Laterality: unspecified laterality Lung location: unspecified part of lung Qualified Code(s): J69.0 - Pneumonitis due to inhalation of food and vomit (7) COPD (chronic obstructive pulmonary disease) COPD type: unspecified COPD Qualified Code(s): J44.9 - Chronic obstructive pulmonary disease, unspecified (8) GERD (gastroesophageal reflux disease) Esophagitis presence: esophagitis presence not specified Qualified Code(s): K21.9 - Gastro-esophageal reflux disease without esophagitis
[2020-03-08] MEDS ORDERED: MAGNESIUM HYDROXIDE SUSP 30 ML UDC PEG PRN (02:32)
[2020-03-08] MEDS ORDERED: SOD PHOSPHATE/SOD BIPHOSPHATE ENEMA 132 ML BTL PR PRN (02:32)
[2020-03-08] MEDS ORDERED: ACETAMINOPHEN 1,000 MG/100 ML VIAL IV PRN (02:32)
[2020-03-08] MEDS ORDERED: ALBUT/IPRATROP 3MG/0.5MG NEB 3 ML VIAL INH SCH (02:32)
[2020-03-08] MEDS ORDERED: SODIUM CHLORIDE 0.9% 1000ML 1,000 ML IV SCH (02:32)
[2020-03-08] MEDS ORDERED: MAGNESIUM SULFATE / D5W 1 GM/100 ML BAG IV ONE (02:32)
[2020-03-08] MEDS ORDERED: SIMETHICONE 80 MG CHEW PO PRN (02:32)
[2020-03-08] MEDS ORDERED: PEPTAMEN 1.5 CAL 1,000 ML BAG PEG SCH (02:32)
[2020-03-08] MEDS ORDERED: bisacodyL 10 MG SUPP PR PRN (02:32)
[2020-03-08] MEDS ORDERED: PHARMACY GLYCEMIC MGMT CONSULT PRN (05:52)
[2020-03-08] MEDS ORDERED: INSULIN GLARGINE SOLOSTAR 100 UNITS/ML 3 ML PEN SC SCH (06:30)
[2020-03-08] MEDS: PIPERACILLIN/TAZOBACTAM 3.375 GM in DEXTROSE 5% 100 ML IV SCH ×3 (06:46→21:04)
[2020-03-08] MEDS: guaiFENesin SUGAR FREE 100 MG/5 ML UDC GT SCH ×3 (06:46→17:33)
[2020-03-08] MEDS: INSULIN ASPART 100 UNITS/ML 3 ML PEN SC SCH ×4 (07:04→20:51)
[2020-03-08] MEDS: ALBUT/IPRATROP 3MG/0.5MG NEB 3 ML VIAL INH SCH ×3 (07:07→18:51)
[2020-03-08] MEDS: BUDESONIDE 0.5 MG/2 ML VIAL (PULMICORT) INH SCH ×3 (07:08→18:51)
--- NOTE | 2020-03-08 07:41 | XRay Report ---
XR chest 1V portable HISTORY: respiratory failure COMPARISON: Chest 02/26/2020. FINDINGS: No pneumothorax. Stable blunting of the right lateral costophrenic sulcus. No definite pleu ral effusions. Old, healed right-sided rib fractures. No focal lung consolidations to suggest pneumon ia. No evidence for pulmonary edema. The heart is normal in size. IMPRESSION: No significant change compared to the prior study. No acute process. ACT 112: Negative or not required by law. Electronically signed by: Chris Yeboah M.D. 03/08/2020 7:40 AM
--- NOTE | 2020-03-08 07:51 | Hospitalist Progress Note ---
Date of Service March 08, 2020 Assessment & Plan (1) Acute respiratory failure: likely based on aspiration, although the pt has a peg tube he still can aspirate gastric contents, will support with bipap and taper as needed (2) Aspiration pneumonia: continues on vanco and zosyn, is at risk for MRSA as has multiple positive nasal cultures and is also at risk for gram negative pneumonia with recent hospital stays and aspiration (3) Type 2 diabetes mellitus with hyperglycemia: has had challenges with TF and glucose control most recently has ssi q 4 hours and lantus (4) Epilepsy: remains on keppra and tegretol (5) COPD (chronic obstructive pulmonary disease): continues on inhalers (6) [facility] Admission and Anticipated Discharge Date Admission Date: March 08, 2020 Subjective pt is non verbal on bipap, he is much improved over reports of initial intake Review of Systems Review of Systems: Unobtainable due to cognitive status Physical Exam Physical Exam: The patient appeared chronically ill and moderately in distress Vital signs as documented. Lungs are coarse bilateral with respiratory distress tachypnea and accessory muscles of respiration Cardiac exam, Rhythm is regular.. No murmurs, rubs or gallops. Abdominal exam reveals normal bowel sounds, soft non tender, no masses Neurologic exam is alert and responds to name and to pain but does not follow commands Results & Data Results & Data ([facility]) Vital Signs (Past 12 Hours) Vital Signs Temp Pulse Pulse Pulse Resp BP BP 03/08/20 07:30 98.2 F 92 H 24 91/69 L 03/08/20 07:25 98 H 19 03/08/20 07:22 96 H 19 03/08/20 04:50 99 H 24 03/08/20 02:33 98.8 F 111 H 25 H 121/69 03/08/20 02:31 108 H 25 H 03/08/20 02:00 103 H 22 111/70 03/08/20 01:42 112 H 21 112/69 03/08/20 01:30 108 H 23 03/08/20 01:00 111 H 19 03/08/20 00:30 121 H 13 115/76 03/08/20 00:00 126 H 28 H 120/84 03/07/20 23:52 130 H 28 H 03/07/20 23:47 99.7 F H 129 H 26 H 127/92 03/07/20 23:45 132 H 30 H 127/92 Pulse Ox 03/08/20 07:30 98 03/08/20 07:25 100 03/08/20 07:22 100 03/08/20 04:50 94 03/08/20 02:33 99 03/08/20 02:31 96 03/08/20 02:00 98 03/08/20 01:42 98 03/08/20 01:30 98 03/08/20 01:00 99 03/08/20 00:30 96 03/08/20 00:00 92 03/07/20 23:52 100 03/07/20 23:47 100 03/07/20 23:45 89 L PG Care Time/CCT Total # of Minutes Spent Total Time Spent with Patient: Total time spent is greater than 50% in coordination of care (as documented) at patient's floor/unit and/or counseling patient: Coding Level of Care Code 05055 Subseq Hosp Care Lvl 3 Diagnoses Acute respiratory failure J96.01 Respiratory failure complication: hypoxia Aspiration pneumonia J69.0 Aspiration pneumonia type: due to gastric secretions Laterality: unspecified laterality Lung location: unspecified part of lung Type 2 diabetes mellitus with hyperglycemia E11.65; Z79.4 Diabetes mellitus intermediate manager insulin use: with retirement use Epilepsy G40.909 Epilepsy type: unspecified Intractability: not intractable Status epilepticus: without status epilepticus COPD (chronic obstructive pulmonary disease) J44.9 COPD type: unspecified COPD History of venous thrombosis and embolism Z86.718 (1) Type 2 diabetes mellitus with hyperglycemia Diabetes mellitus retirement insulin use: with retirement use Qualified Code(s): E11.65 - Type 2 diabetes mellitus with hyperglycemia; Z79.4 - long term (current) use of insulin (2) Epilepsy Epilepsy type: unspecified Intractability: not intractable Status epilepticus: without status epilepticus Qualified Code(s): G40.909 - Epilepsy, unspecified, not intractable, without status epilepticus (3) Acute respiratory failure Respiratory failure complication: hypoxia Qualified Code(s): J96.01 - Acute respiratory failure with hypoxia (4) Aspiration pneumonia Aspiration pneumonia type: due to gastric secretions Laterality: unspecified laterality Lung location: unspecified part of lung Qualified Code(s): J69.0 - Pneumonitis due to inhalation of food and vomit (5) COPD (chronic obstructive pulmonary disease) COPD type: unspecified COPD Qualified Code(s): J44.9 - Chronic obstructive pu lmonary disease, unspecified
[2020-03-08] MEDS ORDERED: BUDESONIDE 0.5 MG/2 ML VIAL (PULMICORT) INH SCH (09:00)
[2020-03-08] MEDS: CARBAMAZEPINE 100 MG CHEW TAB PO SCH ×3 (09:10→21:02)
[2020-03-08] MEDS: levETIRAcetam ORAL SOLN 100MG/ML PEG SCH ×2 (09:11→20:56)
[2020-03-08] MEDS: RIVAROXABAN 20 MG TAB PO SCH (09:11)
[2020-03-08] MEDS: SACCHAROMYCES BOULARDII 250 MG CAP PO SCH ×3 (09:12→20:57)
[2020-03-08] MEDS: LANSOPRAZOLE 30 MG SOLTAB PEG SCH (09:12)
[2020-03-08] MEDS: DOCUSATE SODIUM SYRUP 100 MG/10 ML UDC PO SCH (09:12)
[2020-03-08] MEDS: ASPIRIN 81 MG CHEW GT SCH (09:13)
[2020-03-08] MEDS: CITALOPRAM 40 MG TAB PEG SCH (09:13)
[2020-03-08] MEDS: TRAZODONE HCL 50 MG TAB PEG SCH ×2 (09:14→20:56)
[2020-03-08] MEDS: TUBE FEEDING WATER FLUSH NG SCH ×4 (09:16→21:03)
[2020-03-08] MEDS: MICONAZOLE NITRATE POWDER 43 GM TOP SCH ×2 (09:16→20:53)
[2020-03-08] MEDS: VANCOMYCIN HCL 1,000 MG in SODIUM CHLORIDE 0.9% 250 ML IV SCH ×2 (09:19→17:33)
[2020-03-08] MEDS: PROSOURCE NO CARB 30 ML/PKT PEG SCH ×2 (11:00→21:02)
[2020-03-08] MEDS ORDERED: INSULIN GLARGINE SOLOSTAR 100 UNITS/ML 3 ML PEN SC ONE (14:15)
--- NOTE | 2020-03-08 14:21 | Pharmacy Report ---
Glycemic Control Consultation - Date of Service March 08, 2020 - Scope Scope: Glycemic Pharmacist consulted for glycemic control and to write orders per [facility] inpatient glycemic control protocol. - Objective Weight: 74.3 kg Accuchecks BSG (last 24hrs): 03/08/20 03/08/20 03/08/20 00:25 06:51 11:47 Glucose 248 H POC Glucose 165 H 154 H Laboratory Data (last 24hrs): 03/08/20 00:25 Potassium 4.2 Carbon Dioxide 30 Anion Gap 7.0 Creatinine 0.77 Est Cr Clr Drug Dosing Not Reportable - Recent Pertinent Medications Outpatient Anti-diabetic Regimen: * Lantus 28 units SC BID * Metformin * A1c = 8.7% on 02/09/20 Risk Factors for Insulin Resistance: * Infection: PNA * Diet: Peptamen 1.5 anita 25 units/hr (increase by 10 mL/hr q8h as tolerated to goal 45 mL/hr) - Assessment & Plan Assessment & Plan: ASSESSMENT: * 64 yo M with recent admission and discharge from [facility] on 03/06 re-admitted 03/08 for PNA * Extensive glycemic data from previous admission - will use that to determine regimen this admission. Biggest difference at this time is that tubefeed rate is starting at 1/2 of what it was and then is titrating up. * Novolog covering tubefeeds utilizing CHO ratio therefore Novolog will be scaled down to start and then scaled up as TF rates increase * Will be slightly less aggressive with Lantus initially 2nd lower TF rates, with parameters to increase dose based on BSG PLAN FOR INPATIENT GLYCEMIC CONTROL: * Basal insulin * Lantus 20 units SQ x1 then 20-30 units SC BID based on BSG (see MAR for details) * Bolus insulin * NovoLog per scale q4h * Goal Range: Low 110 mg/dL - High 140 mg/dL * Correction Factor: 15 mg/dL/unit * Nutritional / Prandial insulin per carb ratio of 1 unit per 4 grams CHO admin in Peptamen 1.5 anita * Please note that the plan above was derived based on current level of insulin resistance and hospital stress. These recommendations are appropriate for inpatient admission only. Plan of care upon discharge will need to be reassessed to avoid potential outpatient hypo/hyperglycemia. Thank you.
--- NOTE | 2020-03-08 14:31 | Pharmacy Report ---
Pharmacy Abx Dose Short Note - Date of Service March 08, 2020 - Assessment & Plan Assessment * 64 year old M receiving Zosyn and vancomycin for treatment of aspiration PNA and possible HAP. Recent hospitalization noted. Multiple positive MRSA nasal swabs during prior visits noted * Patient meets criteria for vancomycin dosing via AUC * Will check trough prior to the 4th maintenance dose Plan * Vancomycin 1000 mg IV q8h * Trough 03/09 @ 0930 Pharmacy will continue to follow and will adjust dose/frequency as necessary. Thank you.
--- NOTE | 2020-03-08 19:37 | Electrocardiogram Report ---
Test Reason : Blood Pressure : / mmHG Vent. Rate : 127 BPM Atrial Rate : 127 BPM P-R Int : 148 ms QRS Dur : 066 ms QT Int : 308 ms P-R-T Axes : 074 070 065 degrees QTc Int : 447 ms Sinus tachycardia Otherwise normal ECG When compared with ECG of 25-FEB-2020 17:57, ST elevation has replaced ST depression in Inferior leads T wave inversion no longer evident in Inferior leads T wave inversion no longer evident in Lateral leads Confirmed by Lex Thorpe ([id number]) on 03/08/2020 7:37:16 PM Referred By: [facility] Confirmed By:Yoni Thorpe
[2020-03-08] MEDS: ATORVASTATIN 20 MG TAB PEG SCH (20:59)
[2020-03-08] MEDS: INSULIN GLARGINE SOLOSTAR 100 UNITS/ML 3 ML PEN SC SCH (20:59)
--- NOTE | 2020-03-08 21:32 | Billing Data ---
Date of Service March 08, 2020 Coding Level of Care Code 87942 Initial Inpt Care Lvl 3
[2020-03-09] MEDS: ALBUT/IPRATROP 3MG/0.5MG NEB 3 ML VIAL INH SCH ×4 (00:16→19:06)
[2020-03-09] MEDS: INSULIN ASPART 100 UNITS/ML 3 ML PEN SC SCH ×6 (00:54→21:48)
[2020-03-09] MEDS: guaiFENesin SUGAR FREE 100 MG/5 ML UDC GT SCH ×5 (00:57→23:52)
[2020-03-09] MEDS: VANCOMYCIN HCL 1,000 MG in SODIUM CHLORIDE 0.9% 250 ML IV SCH ×3 (02:30→17:06)
[2020-03-09 04:42] LABS: Basophils # (auto) 0.03 K/uL (0-0.2); Basophils % (auto) 0.4 %; Eosinophils # (auto) 0.29 K/uL (0-0.5); Eosinophils % (auto) 4.2 %; Hemoglobin 10.5 g/dL (14.0-18.0); Immature Granulocytes # (auto) 0.01 K/uL (0.00-0.02); Immature Granulocytes % (auto) 0.1 %; Lymphocytes # (auto) 0.67 K/uL (1.2-3.4); Lymphocytes % (auto) 9.6 %; Mean Corpuscular Hemoglobin 32.6 pg (25-34); Mean Corpuscular Hgb Conc 31.8 g/dL (32-36); Mean Corpuscular Volume 102.5 fL (80-100); Mean Platelet Volume 9.6 fL (7.4-10.4); Neutrophils # (auto) 5.28 K/uL (1.4-6.5); Neutrophils % (auto) 75.7 %; Platelet Count 266 K/uL (130-400); RDW Coefficient of Variation 14.7 % (11.5-14.5); RDW Standard Deviation 54.3 fL (36.4-46.3); Red Blood Count 3.22 M/uL (4.7-6.1); White Blood Count 6.98 K/uL (4.8-10.8)
[2020-03-09 05:23] LABS: BUN Creatinine Ratio 13.5 (10-20); Calcium 8.1 mg/dl (8.5-10.1); Creatinine Clr Calc Pharmacy 139.3 ml/min; Est GFR (African American) 129.4; Est GFR (Non-African American) 111.7; Magnesium 1.9 mg/dl (1.8-2.4); Phosphorus 2.4 mg/dl (2.5-4.9); Potassium 3.8 mmol/L (3.5-5.1)
[2020-03-09] MEDS: PIPERACILLIN/TAZOBACTAM 3.375 GM in DEXTROSE 5% 100 ML IV SCH ×3 (05:26→22:34)
[2020-03-09] MEDS: BUDESONIDE 0.5 MG/2 ML VIAL (PULMICORT) INH SCH ×3 (07:06→19:06)
[2020-03-09] MEDS ORDERED: DEXTROSE 50% 50 ML SYRINGE IV ONE (07:41)
[2020-03-09] MEDS: ASPIRIN 81 MG CHEW GT SCH (09:26)
[2020-03-09] MEDS: RIVAROXABAN 20 MG TAB PO SCH (09:26)
[2020-03-09] MEDS: CITALOPRAM 40 MG TAB PEG SCH (09:26)
[2020-03-09] MEDS: MICONAZOLE NITRATE POWDER 43 GM TOP SCH ×2 (09:27→21:48)
[2020-03-09] MEDS: TRAZODONE HCL 50 MG TAB PEG SCH ×2 (09:28→21:47)
[2020-03-09] MEDS: LANSOPRAZOLE 30 MG SOLTAB PEG SCH (09:28)
[2020-03-09] MEDS: levETIRAcetam ORAL SOLN 100MG/ML PEG SCH ×2 (09:29→21:48)
[2020-03-09] MEDS: SACCHAROMYCES BOULARDII 250 MG CAP PO SCH ×3 (09:29→21:47)
[2020-03-09] MEDS: PROSOURCE NO CARB 30 ML/PKT PEG SCH ×2 (09:30→21:47)
[2020-03-09] MEDS ORDERED: VANCOMYCIN TROUGH ONE (09:30)
[2020-03-09] MEDS: CARBAMAZEPINE 100 MG CHEW TAB PO SCH ×3 (09:30→21:48)
[2020-03-09] MEDS: TUBE FEEDING WATER FLUSH NG SCH ×4 (09:31→21:49)
--- NOTE | 2020-03-09 10:14 | Pharmacy Report ---
Pharmacy Abx Dose Short Note - Date of Service March 09, 2020 - Assessment & Plan Assessment * 64 year old M receiving Zosyn and vancomycin for treatment of aspiration PNA and possible HAP. Recent hospitalization noted. Multiple positive MRSA nasal swabs during prior visits noted * Patient meets criteria for vancomycin dosing via AUC * Trough 18.1 mcg/mL is therapeutic Plan * Continue Vancomycin 1000 mg IV q8h * Repeat trough 03/10 @ 0930 Pharmacy will continue to follow and will adjust dose/frequency as necessary. Thank you.
[2020-03-09] MEDS: INSULIN GLARGINE SOLOSTAR 100 UNITS/ML 3 ML PEN SC SCH ×2 (11:28→21:51)
[2020-03-09] MEDS ORDERED: GLUCOSE 40% GEL 15 GM TUBE PO PRN (12:00)
[2020-03-09] MEDS ORDERED: GLUCOSE 10 TABS/TUBE PO PRN (12:00)
[2020-03-09] MEDS ORDERED: GLUCAGON FOR INJ 1 MG VIAL IM PRN (12:00)
[2020-03-09] MEDS ORDERED: CARBOHYDRATES FOR HYPOGLYCEMIA PO PRN (12:00)
--- NOTE | 2020-03-09 14:28 | Pharmacy Report ---
Pharmacy Glycemic Short Note 2 - Date of Service March 09, 2020 - Glycemic Short BSG Results (Last 24 hours): 03/08/20 03/08/20 03/08/20 16:06 20:32 23:53 Glucose POC Glucose 167 H 112 H 194 H 03/09/20 03/09/20 03/09/20 04:28 04:47 07:29 Glucose 93 POC Glucose 96 57 L* 03/09/20 03/09/20 03/09/20 07:30 08:04 11:17 Glucose POC Glucose 61 L* 120 H 163 H OUTPATIENT ANTIDIABETIC REGIMEN: Lantus 28 units SC BID * Metformin * A1c = 8.7% on 02/09/20 Risk Factors for Insulin Resistance: * Infection: PNA * Diet: Peptamen 1.5 anita (increase by 10 mL/hr q8h as tolerated to goal 45 mL/hr) ASSESSMENT: 03/09: * Mr. Bergman received 55 units of SQ insulin yesterday (40 units of basal and 15 units of bolus). I anticipate increased bolus needs as tube feed rate continues to advance, currently at 45 mls/hr. * Fasting BSG of 120 mg/dL is at goal, however patient was administered 50 mL of dextrose 50% at 0747 so this is not a true fasting. * Hypoglycemic event overnight with BSG of 57 at 0729 with repeat of 61 mg/dL. I suspect this was due to stacking of Novolog. Carbohydrates from tube feeds were not covered at 2100 leading to larger dose being given at midnight for correction (9 units). Patient then received 6 units for 0400 check. Will continue same Novolog parameters for now as these have worked well during recent admission. If a second event occurs, will loosen carb coverage overnight. 03/08: * * 64 yo M with recent admission and discharge from [facility] on 03/06 re-admitted 03/08 for PNA * Extensive glycemic data from previous admission - will use that to determine regimen this admission. Biggest difference at this time is that tubefeed rate is starting at 1/2 of what it was and then is titrating up. * Novolog covering tubefeeds utilizing CHO ratio therefore Novolog will be scaled down to start and then scaled up as TF rates increase * Will be slightly less aggressive with Lantus initially 2nd lower TF rates, with parameters to increase dose based on BSG PLAN FOR INPATIENT GLYCEMIC CONTROL: * Hold outpatient oral diabetes medications * Basal insulin * Lantus 20-25 units SQ BID * Bolus insulin * NovoLog per scale ACHS or Q6hrs while NPO * Goal Range: Low 110 mg/dL - High 140 mg/dL * Correction Factor: 15 mg/dL/unit * Nutritional / Prandial insulin per carb ratio of 1 unit per 4 grams CHO consumed PLAN FOR DISCHARGE: * A1c = 8.7% (02/09/20) * recs pending * Please note that the plan above was derived based on current level of insulin resistance and hospital stress. These recommendations are appropriate for inpatient admission only. Plan of care upon discharge will need to be reassessed to avoid potential outpatient hypo/hyperglycemia. Thank you.
--- NOTE | 2020-03-09 16:42 | Hospitalist Progress Note ---
Date of Service March 09, 2020 Assessment & Plan (1) Aspiration pneumonia: pt has aspiration pneumonia likely due to aspiration of tube feeding, will continue to use zosyn and complete 7 day course, try to feed sitting upright and employ aspiration precautions (2) Acute and chronic respiratory failure: worsened by aspiration, will attempt to taper off bipap today (3) Hypomagnesemia: replete (4) Type 2 diabetes mellitus with hyperglycemia: has had challenges with TF and glucose control most recently has ssi q 4 hours and lantus, did have some low glucose is following glycemic managment (5) Epilepsy: remains on keppra and tegretol (6) History of venous thrombosis and embolism: xarelto (7) Dysphasia as late effect of cerebrovascular accident (CVA): high aspiration risk (8) GERD (gastroesophageal reflux disease): (9) COPD (chronic obstructive pulmonary disease): continues on inhalers (10) HLD (hyperlipidemia): (11) PVD (peripheral vascular disease): (12) CKD (chronic kidney disease): Admission and Anticipated Discharge Date Admission Date: March 08, 2020 Subjective pt is non verbal on bipap, he is much improved over reports of initial intake Review of Systems Review of Systems: Unobtainable due to cognitive status Physical Exam Physical Exam: The patient appeared chronically ill and moderately in distress Vital signs as documented. Lungs are coarse bilateral with respiratory distress tachypnea and accessory muscles of respiration Cardiac exam, Rhythm is regular.. No murmurs, rubs or gallops. Abdominal exam reveals normal bowel sounds, soft non tender, no masses Neurologic exam is alert and responds to name and to pain but does not follow commands Results & Data Results & Data ([facility]) Vital Signs (Past 12 Hours) Vital Signs Temp Pulse Pulse Pulse Resp BP Pulse Ox 03/09/20 13:21 67 18 98 03/09/20 11:38 98.8 F 77 18 108/73 98 03/09/20 11:20 75 17 91 03/09/20 07:46 99.7 F H 87 17 120/81 91 03/09/20 07:26 80 80 20 93 03/09/20 05:00 86 18 92 PG Care Time/CCT Total # of Minutes Spent Total Time Spent with Patient: Total time spent is greater than 50% in coordination of care (as documented) at patient's floor/unit and/or counseling patient: Coding Level of Care Code 94921 Subseq Hosp Care Lvl 3 Diagnoses Aspiration pneumonia J69.0 Aspiration pneumonia type: unspecified Laterality: unspecified laterality Lung location: unspecified part of lung Acute and chronic respiratory failure J96.21 Respiratory failure complication: hypoxia Hypomagnesemia E83.42 Type 2 diabetes mellitus with hyperglycemia E11.65; Z79.4 Diabetes mellitus termite helper insulin use: with fpc use Epilepsy G40.909 Epilepsy type: unspecified Intractability: not intractable Status epilepticus: without status epilepticus History of venous thrombosis and embolism Z86.718 Dysphasia as late effect of cerebrovascular accident (CVA) I69.321 GERD (gastroesophageal reflux disease) K21.9 Esophagitis presence: esophagitis presence not specified COPD (chronic obstructive pulmonary disease) J44.9 COPD type: unspecified COPD HLD (hyperlipidemia) E78.5 Hyperlipidemia type: unspecified PVD (peripheral vascular disease) I73.9 CKD (chronic kidney disease) N18.9 Chronic kidney disease stage: unspecified stage (1) Type 2 diabetes mellitus with hyperglycemia Diabetes mellitus fpc insulin use: with termite helper use Qualified Code(s): E11.65 - Type 2 diabetes mellitus with hyperglycemia; Z79.4 - MCFP (current) use of insulin (2) Epilepsy Epilepsy type: unspecified Intractability: not intractable Status epilepticus: without status epilepticus Qualified Code(s): G40.909 - Epilepsy, unspecified, not intractable, without status epilepticus (3) Acute and chronic respiratory failure Respiratory failure complication: hypoxia Qualified Code(s): J96.21 - Acute and chronic respiratory failure with hypoxia (4) HLD (hyperlipidemia) Hyperlipidemia type: unspecified Qualified Code(s): E78.5 - Hyperlipidemia, unspecified (5) CKD (chronic kidney disease) Chronic kidney disease stage: unspecified stage Qualified Code(s): N18.9 - Chronic kidney disease, unspecified (6) Aspiration pneumonia Aspiration pneumonia type: unspecified Laterality: unspecified laterality Lung location: unspecified part of lung Qualified Code(s): J69.0 - Pneumonitis due to inhalation of food and vomit (7) COPD (chronic obstructive pulmonary disease) COPD type: unspecified COPD Qualified Code(s): J44.9 - Chronic obstructive pulmonary disease, unspecified (8) GERD (gastroesophageal reflux disease) Esophagitis presence: esophagitis presence not specified Qualified Code(s): K21.9 - Gastro-esophageal reflux disease without esophagitis
[2020-03-09] MEDS: PEPTAMEN 1.5 CAL 1,000 ML BAG PEG SCH (19:17)
[2020-03-09] MEDS: DEXTROSE 50% 50 ML SYRINGE IV PRN (20:47)
[2020-03-09] MEDS: ATORVASTATIN 20 MG TAB PEG SCH (21:48)
[2020-03-10] MEDS: INSULIN ASPART 100 UNITS/ML 3 ML PEN SC SCH ×4 (00:27→12:49)
[2020-03-10] MEDS: ALBUT/IPRATROP 3MG/0.5MG NEB 3 ML VIAL INH SCH ×4 (00:41→19:15)
[2020-03-10] MEDS: VANCOMYCIN HCL 1,000 MG in SODIUM CHLORIDE 0.9% 250 ML IV SCH ×2 (03:58→11:08)
[2020-03-10] MEDS: PIPERACILLIN/TAZOBACTAM 3.375 GM in DEXTROSE 5% 100 ML IV SCH ×3 (05:47→22:05)
[2020-03-10] MEDS: guaiFENesin SUGAR FREE 100 MG/5 ML UDC GT SCH ×4 (05:49→23:49)
[2020-03-10] MEDS: BUDESONIDE 0.5 MG/2 ML VIAL (PULMICORT) INH SCH ×3 (07:15→19:15)
[2020-03-10] MEDS ORDERED: VANCOMYCIN TROUGH ONE (09:30)
--- NOTE | 2020-03-10 09:39 | Pharmacy Report ---
Pharmacy Glycemic Short Note 2 - Date of Service March 10, 2020 - Glycemic Short BSG Results (Last 24 hours): 03/09/20 03/09/20 03/09/20 11:17 16:09 20:19 POC Glucose 163 H 141 H 63 L* 03/09/20 03/09/20 03/10/20 20:22 21:05 00:01 POC Glucose 62 L* 113 H 170 H 03/10/20 03/10/20 04:01 07:30 POC Glucose 172 H 95 OUTPATIENT ANTIDIABETIC REGIMEN: Lantus 28 units SC BID * Metformin * A1c = 8.7% on 02/09/20 Risk Factors for Insulin Resistance: * Infection: PNA * Diet: Peptamen 1.5 anita @ 45 ml/hr ASSESSMENT: 03/10: * Adequate glycemic control over the past 24 hours - pt received a total of 68 units of SQ insulin * 30 units of basal * 38 units of bolus * Low BSG (62 mg/dL) at 2019. Patient denied s/s of hypoglycemia. Given 25 mL of D50 per protocol. * Pharmacy was contacted and decreased evening dose of Lantus from 20 to 10 units. I agree with empiric decrease, however I suspect hypoglycemia was due to bolus insulin. Would expect consistently low BSGs if Lantus were the culprit. * Will loosen CF and CR and change Novolog to regular insulin due to concern of novolog stacking with q4 hour administration * Will continue Lantus dose per scale and increase threshold so higher dose only given for BSG > 140 mg/dL 03/09: * Mr. Bergman received 55 units of SQ insulin yesterday (40 units of basal and 15 units of bolus). I anticipate increased bolus needs as tube feed rate continues to advance, currently at 45 mls/hr. * Fasting BSG of 120 mg/dL is at goal, however patient was administered 50 mL of dextrose 50% at 0747 so this is not a true fasting. * Hypoglycemic event overnight with BSG of 57 at 0729 with repeat of 61 mg/dL. I suspect this was due to stacking of Novolog. Carbohydrates from tube feeds were not covered at 2100 leading to larger dose being given at midnight for correction (9 units). Patient then received 6 units for 0400 check. Will continue same Novolog parameters for now as these have worked well during recent admission. If a second event occurs, will loosen carb coverage overnight. 03/08: * 64 yo M with recent admission and discharge from [facility] on 03/06 re-admitted 03/08 for PNA * Extensive glycemic data from previous admission - will use that to determine regimen this admission. Biggest difference at this time is that tubefeed rate is starting at 1/2 of what it was and then is titrating up. * Novolog covering tubefeeds utilizing CHO ratio therefore Novolog will be scaled down to start and then scaled up as TF rates increase * Will be slightly less aggressive with Lantus initially 2nd lower TF rates, with parameters to increase dose based on BSG PLAN FOR INPATIENT GLYCEMIC CONTROL: * Hold outpatient oral diabetes medications * Basal insulin * Lantus 15-20 units SQ BID * 15 units for BSG < 140 * 20 units for BSG 140 or more * Bolus insulin - change to regular insulin * Regular insulin per scale Q6hrs * Goal Range: Low 110 mg/dL - High 140 mg/dL * Correction Factor: 20 mg/dL/unit * Nutritional / Prandial insulin per carb ratio of 1 unit per 5 grams CHO consumed PLAN FOR DISCHARGE: * A1c = 8.7% (02/09/20) * recs pending * Please note that the plan above was derived based on current level of insulin resistance and hospital stress. These recommendations are appropriate for inpatient admission only. Plan of care upon discharge will need to be reassessed to avoid potential outpatient hypo/hyperglycemia. Thank you.
[2020-03-10 10:21] LABS: BUN Creatinine Ratio 15.9 (10-20); Calcium 8.2 mg/dl (8.5-10.1); Creatinine Clr Calc Pharmacy 150.2 ml/min; Est GFR (African American) 133.5; Est GFR (Non-African American) 115.2; Potassium 3.4 mmol/L (3.5-5.1)
[2020-03-10] MEDS: MICONAZOLE NITRATE POWDER 43 GM TOP SCH ×2 (10:29→20:04)
[2020-03-10] MEDS: RIVAROXABAN 20 MG TAB PO SCH (10:31)
[2020-03-10] MEDS: TRAZODONE HCL 50 MG TAB PEG SCH ×2 (10:32→20:04)
[2020-03-10] MEDS: CITALOPRAM 40 MG TAB PEG SCH (10:32)
[2020-03-10] MEDS: SACCHAROMYCES BOULARDII 250 MG CAP PO SCH ×3 (10:34→20:04)
[2020-03-10] MEDS: levETIRAcetam ORAL SOLN 100MG/ML PEG SCH ×2 (10:34→20:04)
[2020-03-10] MEDS: LANSOPRAZOLE 30 MG SOLTAB PEG SCH (10:35)
[2020-03-10] MEDS: PROSOURCE NO CARB 30 ML/PKT PEG SCH ×2 (10:35→20:04)
[2020-03-10] MEDS: INSULIN GLARGINE SOLOSTAR 100 UNITS/ML 3 ML PEN SC SCH ×2 (10:35→20:06)
[2020-03-10] MEDS: TUBE FEEDING WATER FLUSH NG SCH ×4 (10:36→20:05)
[2020-03-10] MEDS: CARBAMAZEPINE 100 MG CHEW TAB PO SCH ×3 (10:36→20:04)
--- NOTE | 2020-03-10 10:45 | Pharmacy Report ---
Pharmacy Abx Dose Short Note - Date of Service March 10, 2020 - Assessment & Plan Assessment * 64 year old M receiving Zosyn and vancomycin for treatment of aspiration PNA and possible HAP. Recent hospitalization noted. Multiple positive MRSA nasal swabs during prior visits noted Plan Vancomycin * Trough level of 20.5 mcg/mL is supratherapeutic * Change to 750 mg IV every 8 hours * Goal trough level: 15 to 20 mcg/mL * Trough Ordered for: 03/11/20 @ 1130 Zosyn * 3.375g IV q8h for CrCl >20 ml.min and BMI <35 Pharmacy will continue to follow and will adjust dose/frequency as necessary. Thank you.
[2020-03-10] MEDS: ASPIRIN 81 MG CHEW GT SCH (10:51)
[2020-03-10] MEDS: VANCOMYCIN HCL 750 MG in SODIUM CHLORIDE 0.9% 250 ML IV SCH ×2 (12:49→20:03)
--- NOTE | 2020-03-10 14:45 | Hospitalist Progress Note ---
Date of Service March 10, 2020 Assessment & Plan (1) Aspiration pneumonia: pt has aspiration pneumonia likely due to aspiration of tube feeding, continues on zosyn and complete 7 day course, try to feed sitting upright and employ aspiration precautions (2) Acute and chronic respiratory failure: worsened by aspiration, remains off bipap has resolved acute phase (3) Hypomagnesemia: replete (4) Type 2 diabetes mellitus with hyperglycemia: has had challenges with TF and glucose control most recently has ssi q 4 hours and lantus, did have some low glucose is following glycemic managment (5) Epilepsy: no seizures, remains on keppra and tegretol (6) History of venous thrombosis and embolism: xarelto continues (7) Dysphasia as late effect of cerebrovascular accident (CVA): high aspiration risk (8) GERD (gastroesophageal reflux disease): (9) COPD (chronic obstructive pulmonary disease): continues on inhalers has been transitioned to RA (10) HLD (hyperlipidemia): (11) PVD (peripheral vascular disease): (12) CKD (chronic kidney disease): Admission and Anticipated Discharge Date Admission Date: March 08, 2020 Subjective pt remains non verbal, has been stable off NIPPV with some NC supplementation, inital challenges of lower blood glucose managed by pharmacy Review of Systems Review of Systems: Unobtainable due to cognitive status Physical Exam Physical Exam: The patient appeared chronically ill and debilitated Vital signs as documented. Neck is without JVD, stridor, thyromegaly, or carotid bruits. Lungs are coarse and diminshed at the bases Cardiac exam, Rhythm is regular.. No murmurs, rubs or gallops. Abdominal exam reveals normal bowel sounds, soft non tender, no masses Results & Data Results & Data ([facility]) Vital Signs (Past 12 Hours) Vital Signs Temp Pulse Pulse Resp BP Pulse Ox 03/10/20 13:32 68 18 91 03/10/20 07:22 98.6 F 81 18 120/67 96 03/10/20 07:17 75 21 96 03/10/20 07:16 79 21 96 03/10/20 03:29 83 20 93 PG Care Time/CCT Total # of Minutes Spent Total Time Spent with Patient: Total time spent is greater than 50% in coordination of care (as documented) at patient's floor/unit and/or counseling patient: Coding Level of Care Code 10339 Subseq Hosp Care Lvl 2 Diagnoses Aspiration pneumonia J69.0 Aspiration pneumonia type: unspecified Laterality: unspecified laterality Lung location: unspecified part of lung Acute and chronic respiratory failure J96.21 Respiratory failure complication: hypoxia Hypomagnesemia E83.42 Type 2 diabetes mellitus with hyperglycemia E11.65; Z79.4 Diabetes mellitus marine oil terminal superintendent insulin use: with marine oil terminal superintendent use Epilepsy G40.909 Epilepsy type: unspecified Intractability: not intractable Status epilepticus: without status epilepticus History of venous thrombosis and embolism Z86.718 Dysphasia as late effect of cerebrovascular accident (CVA) I69.321 GERD (gastroesophageal reflux disease) K21.9 Esophagitis presence: esophagitis presence not specified COPD (chronic obstructive pulmonary disease) J44.9 COPD type: unspecified COPD HLD (hyperlipidemia) E78.5 Hyperlipidemia type: unspecified PVD (peripheral vascular disease) I73.9 CKD (chronic kidney disease) N18.9 Chronic kidney disease stage: unspecified stage (1) Aspiration pneumonia Aspiration pneumonia type: unspecified Laterality: unspecified laterality Lung location: unspecified part of lung Qualified Code(s): J69.0 - Pneumonitis due to inhalation of food and vomit (2) Acute and chronic respiratory failure Respiratory failure complication: hypoxia Qualified Code(s): J96.21 - Acute and chronic respiratory failure with hypoxia (3) Type 2 diabetes mellitus with hyperglycemia Diabetes mellitus marine oil terminal superintendent insulin use: with care home use Qualified Co de(s): E11.65 - Type 2 diabetes mellitus with hyperglycemia; Z79.4 - retirement (current) use of insulin (4) Epilepsy Epilepsy type: unspecified Intractability: not intractable Status epilepticus: without status epilepticus Qualified Code(s): G40.909 - Epilepsy, unspecified, not intractable, without status epilepticus (5) GERD (gastroesophageal reflux disease) Esophagitis presence: esophagitis presence not specified Qualified Code(s): K21.9 - Gastro-esophageal reflux disease without esophagitis (6) COPD (chronic obstructive pulmonary disease) COPD type: unspecified COPD Qualified Code(s): J44.9 - Chronic obstructive pulmonary disease, unspecified (7) HLD (hyperlipidemia) Hyperlipidemia type: unspecified Qualified Code(s): E78.5 - Hyperlipidemia, unspecified (8) CKD (chronic kidney disease) Chronic kidney disease stage: unspecified stage Qualified Code(s): N18.9 - Chronic kidney disease, unspecified
[2020-03-10] MEDS ORDERED: POTASSIUM CHLORIDE 20 MEQ/15 ML UDC PO ONE (15:00)
[2020-03-10] MEDS: DEXTROSE 50% 50 ML SYRINGE IV PRN (19:01)
[2020-03-10] MEDS: INSULIN HUMAN REGULAR SC SCH ×2 (19:26→23:52)
[2020-03-10] MEDS: PEPTAMEN 1.5 CAL 1,000 ML BAG PEG SCH (20:03)
[2020-03-10] MEDS: ATORVASTATIN 20 MG TAB PEG SCH (20:04)
[2020-03-11] MEDS: ALBUT/IPRATROP 3MG/0.5MG NEB 3 ML VIAL INH SCH ×4 (00:58→19:38)
[2020-03-11] MEDS: VANCOMYCIN HCL 750 MG in SODIUM CHLORIDE 0.9% 250 ML IV SCH (03:49)
[2020-03-11] MEDS: PIPERACILLIN/TAZOBACTAM 3.375 GM in DEXTROSE 5% 100 ML IV SCH ×3 (05:29→21:04)
[2020-03-11] MEDS: guaiFENesin SUGAR FREE 100 MG/5 ML UDC GT SCH ×3 (05:29→16:58)
[2020-03-11] MEDS: INSULIN HUMAN REGULAR SC SCH ×2 (05:34→12:30)
[2020-03-11] MEDS: BUDESONIDE 0.5 MG/2 ML VIAL (PULMICORT) INH SCH ×3 (07:10→19:38)
[2020-03-11 07:34] LABS: Hematocrit (blood only) 34.1 % (42-52); Hemoglobin 10.8 g/dL (14.0-18.0); Mean Corpuscular Hemoglobin 31.9 pg (25-34); Mean Corpuscular Hgb Conc 31.7 g/dL (32-36); Mean Corpuscular Volume 100.6 fL (80-100); Mean Platelet Volume 9.6 fL (7.4-10.4); Platelet Count 332 K/uL (130-400); RDW Coefficient of Variation 14.6 % (11.5-14.5); RDW Standard Deviation 53.1 fL (36.4-46.3); Red Blood Count 3.39 M/uL (4.7-6.1); White Blood Count 6.07 K/uL (4.8-10.8)
[2020-03-11 07:49] LABS: BUN Creatinine Ratio 12.2 (10-20); Calcium 8.3 mg/dl (8.5-10.1); Creatinine Clr Calc Pharmacy 134.4 ml/min; Est GFR (African American) 127.6; Est GFR (Non-African American) 110.1; Potassium 3.6 mmol/L (3.5-5.1)
[2020-03-11] MEDS: RIVAROXABAN 20 MG TAB PO SCH (08:13)
[2020-03-11] MEDS: DOCUSATE SODIUM SYRUP 100 MG/10 ML UDC PO SCH (08:13)
[2020-03-11] MEDS: CITALOPRAM 40 MG TAB PEG SCH (08:13)
[2020-03-11] MEDS: MICONAZOLE NITRATE POWDER 43 GM TOP SCH ×2 (08:13→20:49)
[2020-03-11] MEDS: SACCHAROMYCES BOULARDII 250 MG CAP PO SCH ×3 (08:14→20:41)
[2020-03-11] MEDS: levETIRAcetam ORAL SOLN 100MG/ML PEG SCH ×2 (08:14→20:40)
[2020-03-11] MEDS: INSULIN GLARGINE SOLOSTAR 100 UNITS/ML 3 ML PEN SC SCH ×2 (08:15→20:39)
[2020-03-11] MEDS: TUBE FEEDING WATER FLUSH NG SCH ×4 (08:16→20:42)
[2020-03-11] MEDS: CARBAMAZEPINE 100 MG CHEW TAB PO SCH ×3 (08:16→20:42)
[2020-03-11] MEDS: PROSOURCE NO CARB 30 ML/PKT PEG SCH ×2 (08:16→20:40)
[2020-03-11] MEDS: LANSOPRAZOLE 30 MG SOLTAB PEG SCH (08:16)
[2020-03-11] MEDS: ASPIRIN 81 MG CHEW GT SCH (08:21)
[2020-03-11] MEDS: TRAZODONE HCL 50 MG TAB PEG SCH ×2 (08:21→20:49)
--- NOTE | 2020-03-11 09:54 | Pharmacy Report ---
Pharmacy Glycemic Short Note 2 - Date of Service March 11, 2020 - Glycemic Short BSG Results (Last 24 hours): 03/10/20 03/10/20 03/10/20 09:42 11:34 18:55 Glucose 87 POC Glucose 123 H 68 L* 03/10/20 03/10/20 03/10/20 18:57 19:21 23:51 Glucose POC Glucose 65 L* 133 H 122 H 03/11/20 03/11/20 05:33 07:15 Glucose 147 H POC Glucose 125 H OUTPATIENT ANTIDIABETIC REGIMEN: Lantus 28 units SC BID * Metformin * A1c = 8.7% on 02/09/20 Risk Factors for Insulin Resistance: * Infection: PNA * Diet: Peptamen 1.5 anita @ 45 ml/hr ASSESSMENT: 03/11: * Mr. Bergman received 54 units of insulin yesterday (30 units of basal and 24 units of bolus) - pt requiring significantly less insulin compared to admission from 02/24-03/06 * Fasting BSG of 125 mg/dL is at goal. Continue current Lantus orders. * Pt had BSG of 65 mg/dL at dinnertime despite loosening novolog parameters and changing to regular insulin. Per discussion with RN, one of the flush ports for the Peptamen tube feeds has been leaking. This may be the cause of hypoglycemia since the meal time regular insulin doses are based on the amount of carbohydrate expected to be delivered via the tube feeds. Will hold prandial coverage for now. Continue to administer correctional insulin when needed. 03/10: * Adequate glycemic control over the past 24 hours - pt received a total of 68 units of SQ insulin * 30 units of basal * 38 units of bolus * Low BSG (62 mg/dL) at 2019. Patient denied s/s of hypoglycemia. Given 25 mL of D50 per protocol. * Pharmacy was contacted and decreased evening dose of Lantus from 20 to 10 units. I agree with empiric decrease, however I suspect hypoglycemia was due to bolus insulin. Would expect consistently low BSGs if Lantus were the culprit. * Will loosen CF and CR and change Novolog to regular insulin due to concern of novolog stacking with q4 hour administration * Will continue Lantus dose per scale and increase threshold so higher dose only given for BSG > 140 mg/dL 03/09: * Mr. Bergman received 55 units of SQ insulin yesterday (40 units of basal and 15 units of bolus). I anticipate increased bolus needs as tube feed rate continues to advance, currently at 45 mls/hr. * Fasting BSG of 120 mg/dL is at goal, however patient was administered 50 mL of dextrose 50% at 0747 so this is not a true fasting. * Hypoglycemic event overnight with BSG of 57 at 0729 with repeat of 61 mg/dL. I suspect this was due to stacking of Novolog. Carbohydrates from tube feeds were not covered at 2100 leading to larger dose being given at midnight for correction (9 units). Patient then received 6 units for 0400 check. Will continue same Novolog parameters for now as these have worked well during recent admission. If a second event occurs, will loosen carb coverage overnight. 03/08: * 64 yo M with recent admission and discharge from [facility] on 03/06 re-admitted 03/08 for PNA * Extensive glycemic data from previous admission - will use that to determine regimen this admission. Biggest difference at this time is that tubefeed rate is starting at 1/2 of what it was and then is titrating up. * Novolog covering tubefeeds utilizing CHO ratio therefore Novolog will be scaled down to start and then scaled up as TF rates increase * Will be slightly less aggressive with Lantus initially 2nd lower TF rates, with parameters to increase dose based on BSG PLAN FOR INPATIENT GLYCEMIC CONTROL: * Hold outpatient oral diabetes medications * Basal insulin * Lantus 15-20 units SQ BID * 15 units for BSG < 140 * 20 units for BSG 140 or more * Bolus insulin * Regular insulin per scale Q6hrs * Goal Range: Low 110 mg/dL - High 140 mg/dL * Correction Factor: 20 mg/dL/unit * Nutritional / Prandial insulin per carb ratio of 1 unit per 5 grams CHO consumed (hold prandial coverage while tube feed administration is inconsistent due to leakage) PLAN FOR DISCHARGE: * A1c = 8.7% (02/09/20) * To be determined based off SNF capabilities for glycemic control * If continued on Peptamen TF @ 45 ml/min, may consider Lantus 15-20 units SC BID and add Novolog 5 units SC q6h with sliding scale: * Blood Sugar 70-150 administer 0 units * Blood Sugar 151-200 administer 3 units * Blood Sugar 201-250 administer 5 units * Blood Sugar 251-300 administer 7 units * Blood Sugar 301-350 administer 9 units * Blood Sugar 351-400 administer 11 units * Blood Sugar >400 administer 13 units and call Thank you.
[2020-03-11] MEDS ORDERED: VANCOMYCIN TROUGH ONE (11:30)
[2020-03-11] MEDS: INSULIN ASPART 100 UNITS/ML 3 ML PEN SC SCH ×2 (16:55→20:39)
--- NOTE | 2020-03-11 17:30 | Hospitalist Progress Note ---
Date of Service March 11, 2020 Assessment & Plan (1) Aspiration pneumonia: pt has aspiration pneumonia likely due to aspiration of tube feeding, continues on zosyn and complete 7 day course, try to feed sitting upright and employ aspiration precautions no fever, WBC normal, vitals stable ongoing issue, aspirating despite tube feeds will discuss further with his sister tomorrow (2) Acute and chronic respiratory failure: worsened by aspiration, remains off bipap has resolved acute phase stable on 2-3L today which is his baseline (3) Hypomagnesemia: repleted not checked today will repeat tomorrow (4) Type 2 diabetes mellitus with hyperglycemia: has had challenges with TF and glucose control most recently has ssi q 4 hours and lantus now with some low glucose readings due to inconsistent tube feeds due to PEG malfunction (5) Epilepsy: no seizures, remains on keppra and tegretol (6) History of venous thrombosis and embolism: xarelto continues (7) Dysphasia as late effect of cerebrovascular accident (CVA): high aspiration risk (8) GERD (gastroesophageal reflux disease): (9) COPD (chronic obstructive pulmonary disease): continues on inhalers has been transitioned to RA (10) HLD (hyperlipidemia): (11) PVD (peripheral vascular disease): (12) CKD (chronic kidney disease): Admission and Anticipated Discharge Date Admission Date: March 08, 2020 Subjective patient appears stable, no respiratory issues, breathing room air d/w RN, having issues with PEG tube leaking, trying to mend it with wrap but not working well will reach out to sister about needing a new PEG tube labs today with WBC 6k, Hb 10.8, Cr and electrolytes stable Review of Systems Review of Systems: Unobtainable due to cognitive status (non verbal) Physical Exam Constitutional: well developed and well nourished; no acute distress Eyes: reactive pupils; + EOM not intact (eyes crossed) ENMT: external ear and nose normal, oropharynx normal Neck: trachea midline, no thyromegaly Respiratory: normal respiratory effort, lungs clear to auscultation Cardiovascular: RRR, no murmur, no edema Gastrointestinal (Abdomen): normal bowel sounds, soft, nontender, no hepatosplenomegaly (PEG tube) Musculoskeletal: Head/Neck/Chest: normocephalic and head atraumatic Extremities: + limited ROM of extremities and + abnormal strength (right sided paresis); + extremities abnormal to inspection (right hand contracture) Skin: no rashes, warm and dry Neurologic: CN's II-XI intact bilaterally, + focal motor deficit (right sided paresis) and awake Speech / Cognition: + abnormal speech (non verbal) Psychiatric: Orientation: alert; + not oriented x 3 Lymphatic: no cervical or axillary lymphadenopathy Results & Data Results & Data ([facility]) Vital Signs (Past 12 Hours) Vital Signs Temp Pulse Resp BP Pulse Ox 03/11/20 15:52 36.2 C L 82 18 122/75 90 03/11/20 13:31 66 20 93 03/11/20 07:58 36.6 C 83 18 119/81 93 03/11/20 07:15 74 18 94 Laboratory Results Laboratory Results - last 24 hr 03/10/20 03/10/20 03/10/20 18:55 18:57 19:21 WBC RBC Hgb Hct MCV MCH MCHC RDW Std Deviation RDW Coeff of Nick Plt Count MPV Sodium Potassium Chloride Carbon Dioxide Anion Gap BUN Creatinine Est Cr Clr Drug Dosing Est GFR ( Amer) Est GFR (Non-Af Amer) BUN/Creatinine Ratio Glucose POC Glucose 68 L* 65 L* 133 H Calcium Vancomycin Trough 03/10/20 03/11/20 03/11/20 23:51 05:33 07:15 WBC 6.07 RBC 3.39 L Hgb 10.8 L Hct 34.1 L MCV 100.6 H MCH 31.9 MCHC 31.7 L RDW Std Deviation 53.1 H RDW Coeff of Nick 14.6 H Plt Count 332 MPV 9.6 Sodium Potassium Chloride Carbon Dioxide Anion Gap BUN Creatinine Est Cr Clr Drug Dosing Est GFR ( Amer) Est GFR (Non-Af Amer) BUN/Creatinine Ratio Glucose POC Glucose 122 H 125 H Calcium Vancomycin Trough 03/11/20 03/11/20 03/11/20 07:15 11:27 11:39 WBC RBC Hgb Hct MCV MCH MCHC RDW Std Deviation RDW Coeff of Nick Plt Count MPV Sodium 142 Potassium 3.6 Chloride 107 Carbon Dioxide 30 Anion Gap 5.0 BUN 7 Creatinine 0.57 L Est Cr Clr Drug Dosing 134.4 Est GFR ( Amer) 127.6 Est GFR (Non-Af Amer) 110.1 BUN/Creatinine Ratio 12.2 Glucose 147 H POC Glucose 177 H Calcium 8.3 L Vancomycin Trough 16.7 03/11/20 16:51 WBC RBC Hgb Hct MCV MCH MCHC RDW Std Deviation RDW Coeff of Nick Plt Count MPV Sodium Potassium Chloride Carbon Dioxide Anion Gap BUN Creatinine Est Cr Clr Drug Dosing Est GFR ( Amer) Est GFR (Non-Af Amer) BUN/Creatinine Ratio Glucose POC Glucose 180 H Calcium Vancomycin Trough Medications Administered Current Inpatient Medications Albuterol (Duoneb) 3 ml INH Q6R [facility] Stop: 04/07/20 06:59 Last Admin: 03/11/20 13:28 Dose: 3 ml Documented by: Aspirin (Aspirin Chew) 81 mg GT DAILY [facility]BARA Stop: 04/07/20 08:59 Last Admin: 03/11/20 08:21 Dose: 81 mg Documented by: Atorvastatin Calcium (Lipitor) 20 mg PEG HS BARBARA Stop: 04/07/20 20:59 Last Admin: 03/10/20 20:04 Dose: 20 mg Documented by: Bisacodyl (Dulcolax) 10 mg DC UD PRN PRN Reason: Constipation Stop: 04/07/20 02:31 Budesonide (Pulmicort Respules) 0.5 mg INH TIDR [facility]BAR[facility] Stop: 04/07/20 06:59 Last Admin: 03/11/20 13:28 Dose: 0.5 mg Documented by: Carbamazepine (Tegretol) 100 mg PO HS BARBARA Stop: 04/07/20 20:59 Last Admin: 03/10/20 20:04 Dose: 100 mg Documented by: Carbamazepine (Tegretol) 400 mg PO BID [facility] Stop: 04/07/20 08:59 Last Admin: 03/11/20 08:16 Dose: 400 mg Documented by: Citalopram Hydrobromide (Celexa) 40 mg PEG DAILY [facility] Stop: 04/07/20 08:59 Last Admin: 03/11/20 08:13 Dose: 40 mg Documented by: Dextrose (Dextrose 50%) 25 - 50 ml IV UD PRN; Protocol PRN Reason: Hypoglycemia Protocol Stop: 04/08/20 11:59 Last Admin: 03/10/20 19:01 Dose: 25 ml Documented by: Docusate Sodium (Colace) 100 mg PO Q72H BARBARA Stop: 04/07/20 08:59 Last Admin: 03/11/20 08:13 Dose: 100 mg Documented by: Enteral Nutritional Formula (Peptamen 1.5 Aron) 1,000 ml PEG UD BARBARA; Protocol Stop: 04/07/20 10:44 Last Admin: 03/10/20 20:03 Dose: 1,000 ml Documented by: Glucagon (Glucagen) 1 mg IM UD PRN; Protocol PRN Reason: Hypoglycemia Protocol Stop: 04/08/20 11:59 Glucose (Glucose 40%) 15 - 30 gm PO UD PRN; Protocol PRN Reason: Hypoglycemia Protocol Stop: 04/08/20 11:59 Glucose (Dex4 Glucose) 4 - 8 tabs PO UD PRN; Protocol PRN Reason: Hypoglycemia Protocol Stop: 04/08/20 11:59 Guaifenesin (Robitussin Sugar Free Syrup) 200 mg GT Q6 [facility]BARA Stop: 04/07/20 05:59 Last Admin: 03/11/20 16:58 Dose: 200 mg Documented by: Piperacillin Sod/Tazobactam (Sod 3.375 gm/ Dextrose) 115 mls @ 28.75 mls/hr IV Q8H BARBARA; Protocol Stop: 03/15/20 05:59 Last Admin: 03/11/20 14:05 Dose: 28.8 mls/hr Documented by: Insulin Aspart (Novolog Flexpen) 0 units SC Q4 BARBARA; Protocol Stop: 04/10/20 15:59 Last Admin: 03/11/20 16:55 Dose: 2 units Documented by: Insulin Glargine (Lantus Solostar Pen) 0 units SC BID BARBARA; Protocol Stop: 04/07/20 20:59 Last Admin: 03/11/20 08:15 Dose: 15 units Documented by: Lansoprazole (Prevacid) 30 mg PEG QAM [facility]BARA Stop: 04/07/20 08:59 Last Admin: 03/11/20 08:16 Dose: 30 mg Documented by: Levetiracetam (Keppra) 1,000 mg PEG BID [facility] Stop: 04/07/20 08:59 Last Admin: 03/11/20 08:14 Dose: 1,000 mg Documented by: Magnesium Hydroxide (Milk Of Magnesia) 30 ml PEG UD PRN PRN Reason: Constipation Stop: 04/07/20 02:31 Miconazole Nitrate (Desenex) 1 appln TOP BID [facility] Stop: 04/07/20 08:59 Last Admin: 03/11/20 08:13 Dose: 1 appln Documented by: Miscellaneous (Carbohydrates For Hypoglycemia) 15 - 30 gm PO UD PRN PRN Reason: Hypoglycemia Treatment Stop: 04/08/20 11:59 Miscellaneous Information (Consult) 1 ea N/A UD PRN PRN Reason: Consult Stop: 04/07/20 00:34 Miscellaneous Information (Consult Glycemic Management Pharmacy) 1 ea N/A UD PRN PRN Reason: Consult Stop: 04/07/20 05:51 Nutritional Formula (Prosource No Carb) 30 ml PEG BID [facility]BARA Stop: 04/07/20 10:44 Last Admin: 03/11/20 08:16 Dose: 30 ml Documented by: Rivaroxaban (Xarelto) 20 mg PO QDB [facility]BARA Stop: 04/07/20 07:29 Last Admin: 03/11/20 08:13 Dose: 20 mg Documented by: Saccharomyces Boulardii (Florastor) 250 mg PO TID [facility] Stop: 04/07/20 08:59 Last Admin: 03/11/20 14:05 Dose: 250 mg Documented by: Simethicone (Mylicon) 80 mg PO Q6H PRN PRN Reason: Gas Stop: 04/07/20 02:31 Last Admin: 03/08/20 09:14 Dose: 80 mg Documented by: Sodium Biphosphate/Sodium Phosphate (Fleet Enema) 118 ml DC UD PRN PRN Reason: Constipation Stop: 04/07/20 02:31 Sterile Water (Tube Feeding Water Flush) 1 ea NG QID [facility]BAR[facility] Stop: 04/07/20 08:59 Last Admin: 03/11/20 16:55 Dose: 1 ea Documented by: Trazodone HCl (Desyrel) 50 mg PEG BID [facility] Stop: 04/07/20 08:59 Last Admin: 03/11/20 08:21 Dose: 50 mg Documented by: PG Care Time/CCT Total # of Minutes Spent Total Time Spent with Patient: Total time spent is greater than 50% in coordination of care (as documented) at patient's floor/unit and/or counseling patient: Coding Level of Care Code 80563 Subseq Hosp Care Lvl 2 Diagnoses Aspiration pneumonia J69.0 Aspiration pneumonia type: unspecified Laterality: unspecified laterality Lung location: unspecified part of lung Acute and chronic respiratory failure J96.21 Respiratory failure complication: hypoxia Hypomagnesemia E83.42 Type 2 diabetes mellitus with hyperglycemia E11.65; Z79.4 Diabetes mellitus intermediate insulin use: with intermediate use Epilepsy G40.909 Epilepsy type: unspecified Intractability: not intractable Status epilepticus: without status epilepticus History of venous thrombosis and embolism Z86.718 Dysphasia as late effect of cerebrovascular accident (CVA) I69.321 GERD (gastroesophageal reflux disease) K21.9 Esophagitis presence: esophagitis presence not specified COPD (chronic obstructive pulmonary disease) J44.9 COPD type: unspecified COPD HLD (hyperlipidemia) E78.5 Hyperlipidemia type: unspecified PVD (peripheral vascular disease) I73.9 CKD (chronic kidney disease) N18.9 Chronic kidney disease stage: unspecified stage (1) Type 2 diabetes mellitus with hyperglycemia 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: with intermediate use Qualified C ode(s): E11.65 - Type 2 diabetes mellitus with hyperglycemia; 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 (2) Epilepsy Epilepsy type: unspecified Intractability: not intractable Status epilepticus: without status epilepticus Qualified Code(s): G40.909 - Epilepsy, unspecified, not intractable, without status epilepticus (3) Acute and chronic respiratory failure Respiratory failure complication: hypoxia Qualified Code(s): J96.21 - Acute and chronic respiratory failure with hypoxia (4) HLD (hyperlipidemia) Hyperlipidemia type: unspecified Qualified Code(s): E78.5 - Hyperlipidemia, unspecified (5) CKD (chronic kidney disease) Chronic kidney disease stage: unspecified stage Qualified Code(s): N18.9 - Chronic kidney disease, unspecified (6) Aspiration pneumonia Aspiration pneumonia type: unspecified Laterality: unspecified laterality Lung location: unspecified part of lung Qualified Code(s): J69.0 - Pneumonitis due to inhalation of food and vomit (7) COPD (chronic obstructive pulmonary disease) COPD type: unspecified COPD Qualified Code(s): J44.9 - Chronic obstructive pulmonary disease, unspecified (8) GERD (gastroesophageal reflux disease) Esophagitis presence: esophagitis presence not specified Qualified Code(s): K21.9 - Gastro-esophageal reflux disease without esophagitis
[2020-03-11] MEDS: PEPTAMEN 1.5 CAL 1,000 ML BAG PEG SCH (20:38)
[2020-03-11] MEDS: ATORVASTATIN 20 MG TAB PEG SCH (20:41)
[2020-03-12] MEDS: guaiFENesin SUGAR FREE 100 MG/5 ML UDC GT SCH ×4 (00:09→18:33)
[2020-03-12] MEDS: INSULIN ASPART 100 UNITS/ML 3 ML PEN SC SCH ×6 (00:09→22:06)
[2020-03-12] MEDS: ALBUT/IPRATROP 3MG/0.5MG NEB 3 ML VIAL INH SCH ×4 (00:51→20:02)
[2020-03-12] MEDS: PIPERACILLIN/TAZOBACTAM 3.375 GM in DEXTROSE 5% 100 ML IV SCH ×3 (05:54→21:46)
[2020-03-12] MEDS: BUDESONIDE 0.5 MG/2 ML VIAL (PULMICORT) INH SCH ×3 (07:38→20:01)
[2020-03-12 08:07] LABS: BUN Creatinine Ratio 16.5 (10-20); Calcium 8.7 mg/dl (8.5-10.1); Creatinine Clr Calc Pharmacy 134.4 ml/min; Est GFR (African American) 127.6; Est GFR (Non-African American) 110.1; Potassium 3.5 mmol/L (3.5-5.1)
[2020-03-12] MEDS: RIVAROXABAN 20 MG TAB PO SCH (08:14)
[2020-03-12] MEDS: CITALOPRAM 40 MG TAB PEG SCH (08:16)
[2020-03-12] MEDS: TRAZODONE HCL 50 MG TAB PEG SCH ×2 (08:16→22:05)
[2020-03-12] MEDS: MICONAZOLE NITRATE POWDER 43 GM TOP SCH ×2 (08:16→21:40)
[2020-03-12] MEDS: ASPIRIN 81 MG CHEW GT SCH (08:16)
[2020-03-12] MEDS: PROSOURCE NO CARB 30 ML/PKT PEG SCH ×2 (08:17→21:44)
[2020-03-12] MEDS: SACCHAROMYCES BOULARDII 250 MG CAP PO SCH ×3 (08:17→21:44)
[2020-03-12] MEDS: levETIRAcetam ORAL SOLN 100MG/ML PEG SCH ×2 (08:17→21:42)
[2020-03-12] MEDS: LANSOPRAZOLE 30 MG SOLTAB PEG SCH (08:17)
[2020-03-12] MEDS: CARBAMAZEPINE 100 MG CHEW TAB PO SCH ×3 (08:18→21:45)
[2020-03-12] MEDS: TUBE FEEDING WATER FLUSH NG SCH ×4 (08:18→21:46)
[2020-03-12] MEDS: INSULIN GLARGINE SOLOSTAR 100 UNITS/ML 3 ML PEN SC SCH ×2 (08:36→21:43)
--- NOTE | 2020-03-12 12:43 | Pharmacy Report ---
Pharmacy Glycemic Short Note 2 - Date of Service March 12, 2020 - Glycemic Short BSG Results (Last 24 hours): OUTPATIENT ANTIDIABETIC REGIMEN: Lantus 28 units SC BID * Metformin * A1c = 8.7% on 02/09/20 Risk Factors for Insulin Resistance: * Infection: PNA * Diet: Peptamen 1.5 anita @ 45 ml/hr ASSESSMENT: 03/12: * Patient received 40 units of insulin yesterday * 35 units of Basal * 5 units of Bolus * BSGs ranged 125-180 mg/dL * Spoke with RN today who states that the PEG tube is no longer leaking - this along with the lack of a CHO ratio could explain the elevated fasting BSG this AM of 199 mg/dL. Plan to resume Novolog carb coverage q4h for Peptamen tube feeds - See protocol tab for further details. * Will continue with current basal insulin as BSGs should improve with CHO coverage 03/11: * Mr. Bergman received 54 units of insulin yesterday (30 units of basal and 24 units of bolus) - pt requiring significantly less insulin compared to admission from 02/24-03/06 * Fasting BSG of 125 mg/dL is at goal. Continue current Lantus orders. * Pt had BSG of 65 mg/dL at dinnertime despite loosening novolog parameters and changing to regular insulin. Per discussion with RN, one of the flush ports for the Peptamen tube feeds has been leaking. This may be the cause of hypoglycemia since the meal time regular insulin doses are based on the amount of carbohydrate expected to be delivered via the tube feeds. Will hold prandial coverage for now. Continue to administer correctional insulin when needed. 03/10: * Adequate glycemic control over the past 24 hours - pt received a total of 68 units of SQ insulin * 30 units of basal * 38 units of bolus * Low BSG (62 mg/dL) at 2019. Patient denied s/s of hypoglycemia. Given 25 mL of D50 per protocol. * Pharmacy was contacted and decreased evening dose of Lantus from 20 to 10 units. I agree with empiric decrease, however I suspect hypoglycemia was due to bolus insulin. Would expect consistently low BSGs if Lantus were the culprit. * Will loosen CF and CR and change Novolog to regular insulin due to concern of novolog stacking with q4 hour administration * Will continue Lantus dose per scale and increase threshold so higher dose only given for BSG > 140 mg/dL 03/09: * Mr. Bergman received 55 units of SQ insulin yesterday (40 units of basal and 15 units of bolus). I anticipate increased bolus needs as tube feed rate continues to advance, currently at 45 mls/hr. * Fasting BSG of 120 mg/dL is at goal, however patient was administered 50 mL of dextrose 50% at 0747 so this is not a true fasting. * Hypoglycemic event overnight with BSG of 57 at 0729 with repeat of 61 mg/dL. I suspect this was due to stacking of Novolog. Carbohydrates from tube feeds were not covered at 2100 leading to larger dose being given at midnight for correction (9 units). Patient then received 6 units for 0400 check. Will continue same Novolog parameters for now as these have worked well during recent admission. If a second event occurs, will loosen carb coverage overnight. 03/08: * 64 yo M with recent admission and discharge from [facility] on 03/06 re-admitted 03/08 for PNA * Extensive glycemic data from previous admission - will use that to determine regimen this admission. Biggest difference at this time is that tubefeed rate is starting at 1/2 of what it was and then is titrating up. * Novolog covering tubefeeds utilizing CHO ratio therefore Novolog will be scaled down to start and then scaled up as TF rates increase * Will be slightly less aggressive with Lantus initially 2nd lower TF rates, with parameters to increase dose based on BSG PLAN FOR INPATIENT GLYCEMIC CONTROL: * Hold outpatient oral diabetes medications * Basal insulin * Lantus 15-20 units SQ BID * 15 units for BSG < 140 * 20 units for BSG 140 or more * Bolus insulin - resumed CHO ratio * Regular insulin per scale Q6hrs * Goal Range: Low 120 mg/dL - High 150 mg/dL * Correction Factor: 25 mg/dL/unit * Nutritional / Prandial insulin per carb ratio of 1 unit per 9 grams CHO consumed PLAN FOR DISCHARGE: * A1c = 8.7% (02/09/20) * To be determined based off SNF capabilities for glycemic control * If continued on Peptamen TF @ 45 ml/min, may consider Lantus 15-20 units SC BID and add Novolog 5 units SC q6h with sliding scale: * Blood Sugar 70-150 administer 0 units * Blood Sugar 151-200 administer 3 units * Blood Sugar 201-250 administer 5 units * Blood Sugar 251-300 administer 7 units * Blood Sugar 301-350 administer 9 units * Blood Sugar 351-400 administer 11 units * Blood Sugar >400 administer 13 units and call Thank you.
--- NOTE | 2020-03-12 16:55 | Hospitalist Progress Note ---
Date of Service March 12, 2020 Assessment & Plan (1) Aspiration pneumonia: pt has aspiration pneumonia likely due to aspiration of tube feeding, continues on zosyn and complete 7 day course, try to feed sitting upright and employ aspiration precautions still no fever, WBC normal, vitals stable ongoing issue, aspirating despite tube feeds unsure if he was wearing oxygen when he was at SNF (2) Acute and chronic respiratory failure: worsened by aspiration, remains off bipap has resolved acute phase stable on 2-3L for two days (3) Hypomagnesemia: repleted (4) Type 2 diabetes mellitus with hyperglycemia: has had challenges with TF and glucose control most recently has ssi q 4 hours and lantus sugars stable today (5) Epilepsy: no seizures, remains on keppra and tegretol (6) History of venous thrombosis and embolism: xarelto continues (7) Dysphasia as late effect of cerebrovascular accident (CVA): high aspiration risk (8) GERD (gastroesophageal reflux disease): (9) COPD (chronic obstructive pulmonary disease): continues on inhalers has been transitioned to RA (10) HLD (hyperlipidemia): (11) PVD (peripheral vascular disease): (12) CKD (chronic kidney disease): Admission and Anticipated Discharge Date Admission Date: March 08, 2020 Subjective patient appears stable PEG tube no longer leaking today, tolerating tube feeds blood sugars stable, Na stable at 138 he is breathing well may be ready for discharge tomorrow Review of Systems Review of Systems: Unobtainable due to cognitive status Physical Exam Constitutional: well developed and well nourished; no acute distress Eyes: reactive pupils; + EOM not intact (eyes crossed) ENMT: external ear and nose normal, oropharynx normal Neck: trachea midline, no thyromegaly Respiratory: normal respiratory effort, lungs clear to auscultation Cardiovascular: RRR, no murmur, no edema Gastrointestinal (Abdomen): normal bowel sounds, soft, nontender, no hepatosplenomegaly (PEG tube) Musculoskeletal: Head/Neck/Chest: normocephalic and head atraumatic Extremities: + limited ROM of extremities and + abnormal strength (right sided paresis); + extremities abnormal to inspection (right hand contracture) Skin: no rashes, warm and dry Neurologic: CN's II-XI intact bilaterally, + focal motor deficit (right sided paresis) and awake Speech / Cognition: + abnormal speech (non verbal) Psychiatric: Orientation: alert; + not oriented x 3 Lymphatic: no cervical or axillary lymphadenopathy Results & Data Results & Data ([facility]) Vital Signs (Past 12 Hours) Vital Signs Temp Pulse Pulse Resp BP BP Pulse Ox 03/12/20 15:30 37 C 69 16 112/70 94 03/12/20 14:00 82 18 102/65 03/12/20 07:38 81 19 91 03/12/20 06:58 37.2 C 85 22 133/78 90 Laboratory Results Laboratory Results - last 24 hr 03/12/20 03/12/20 03/12/20 07:23 07:32 11:32 WBC RBC Hgb Hct MCV MCH MCHC RDW Std Deviation RDW Coeff of Nick Plt Count MPV Sodium 138 Potassium 3.5 Chloride 105 Carbon Dioxide 27 Anion Gap 6.0 BUN 9 Creatinine 0.57 L Est Cr Clr Drug Dosing 134.4 Est GFR ( Amer) 127.6 Est GFR (Non-Af Amer) 110.1 BUN/Creatinine Ratio 16.5 Glucose 189 H POC Glucose 199 H 189 H Calcium 8.7 03/12/20 03/12/20 03/12/20 16:45 21:24 23:57 WBC RBC Hgb Hct MCV MCH MCHC RDW Std Deviation RDW Coeff of Nick Plt Count MPV Sodium Potassium Chloride Carbon Dioxide Anion Gap BUN Creatinine Est Cr Clr Drug Dosing Est GFR ( Amer) Est GFR (Non-Af Amer) BUN/Creatinine Ratio Glucose POC Glucose 86 128 H 133 H Calcium 03/13/20 03/13/20 03/13/20 03:57 06:39 06:39 WBC 6.97 RBC 3.59 L Hgb 11.4 L Hct 35.6 L MCV 99.2 MCH 31.8 MCHC 32.0 RDW Std Deviation 52.9 H RDW Coeff of Nick 14.9 H Plt Count 382 MPV 9.5 Sodium Pending Potassium Pending Chloride Pending Carbon Dioxide Pending Anion Gap Pending BUN Pending Creatinine Pending Est Cr Clr Drug Dosing Pending Est GFR ( Amer) Pending Est GFR (Non-Af Amer) Pending BUN/Creatinine Ratio Pending Glucose Pending POC Glucose 138 H Calcium Pending Medications Administered Current Inpatient Medications Albuterol (Duoneb) 3 ml INH Q6R [facility] Stop: 04/07/20 06:59 Last Admin: 03/13/20 06:58 Dose: 3 ml Documented by: Aspirin (Aspirin Chew) 81 mg GT DAILY [facility] Stop: 04/07/20 08:59 Last Admin: 03/12/20 08:16 Dose: 81 mg Documented by: Atorvastatin Calcium (Lipitor) 20 mg PEG HS [facility] Stop: 04/07/20 20:59 Last Admin: 03/12/20 21:44 Dose: 20 mg Documented by: Bisacodyl (Dulcolax) 10 mg CO UD PRN PRN Reason: Constipation Stop: 04/07/20 02:31 Budesonide (Pulmicort Respules) 0.5 mg INH TIDR [facility] Stop: 04/07/20 06:59 Last Admin: 03/13/20 06:58 Dose: 0.5 mg Documented by: Carbamazepine (Tegretol) 100 mg PO HS [facility] Stop: 04/07/20 20:59 Last Admin: 03/12/20 21:44 Dose: 100 mg Documented by: Carbamazepine (Tegretol) 400 mg PO BID [facility] Stop: 04/07/20 08:59 Last Admin: 03/12/20 21:45 Dose: 400 mg Documented by: Citalopram Hydrobromide (Celexa) 40 mg PEG DAILY [facility] Stop: 04/07/20 08:59 Last Admin: 03/12/20 08:16 Dose: 40 mg Documented by: Dextrose (Dextrose 50%) 25 - 50 ml IV UD PRN; Protocol PRN Reason: Hypoglycemia Protocol Stop: 04/08/20 11:59 Last Admin: 03/10/20 19:01 Dose: 25 ml Documented by: Docusate Sodium (Colace) 100 mg PO Q72H [facility] Stop: 04/07/20 08:59 Last Admin: 03/11/20 08:13 Dose: 100 mg Documented by: Enteral Nutritional Formula (Peptamen 1.5 Aron) 1,000 ml PEG UD [facility]; Protocol Stop: 04/07/20 10:44 Last Admin: 03/12/20 21:56 Dose: 1,000 ml Documented by: Glucagon (Glucagen) 1 mg IM UD PRN; Protocol PRN Reason: Hypoglycemia Protocol Stop: 04/08/20 11:59 Glucose (Glucose 40%) 15 - 30 gm PO UD PRN; Protocol PRN Reason: Hypoglycemia Protocol Stop: 04/08/20 11:59 Glucose (Dex4 Glucose) 4 - 8 tabs PO UD PRN; Protocol PRN Reason: Hypoglycemia Protocol Stop: 04/08/20 11:59 Guaifenesin (Robitussin Sugar Free) 200 mg GT Q6 [facility] Stop: 04/11/20 18:14 Last Admin: 03/13/20 05:48 Dose: 200 mg Documented by: Piperacillin Sod/Tazobactam (Sod 3.375 gm/ Dextrose) 115 mls @ 28.75 mls/hr IV Q8H [facility]; Protocol Stop: 03/15/20 05:59 Last Admin: 03/13/20 05:48 Dose: 28.8 mls/hr Documented by: Insulin Aspart (Novolog Flexpen) 0 units SC Q4 [facility]; Protocol Stop: 04/10/20 15:59 Last Admin: 03/13/20 03:58 Dose: 4 units Documented by: Insulin Glargine (Lantus Solostar Pen) 0 units SC BID [facility]; Protocol Stop: 04/07/20 20:59 Last Admin: 03/12/20 21:43 Dose: 15 units Documented by: Lansoprazole (Prevacid) 30 mg PEG QAM [facility] Stop: 04/07/20 08:59 Last Admin: 03/12/20 08:17 Dose: 30 mg Documented by: Levetiracetam (Keppra) 1,000 mg PEG BID [facility] Stop: 04/07/20 08:59 Last Admin: 03/12/20 21:42 Dose: 1,000 mg Documented by: Magnesium Hydroxide (Milk Of Magnesia) 30 ml PEG UD PRN PRN Reason: Constipation Stop: 04/07/20 02:31 Miconazole Nitrate (Desenex) 1 appln TOP BID [facility] Stop: 04/07/20 08:59 Last Admin: 03/12/20 21:40 Dose: Not Given Documented by: Miscellaneous (Carbohydrates For Hypoglycemia) 15 - 30 gm PO UD PRN PRN Reason: Hypoglycemia Treatment Stop: 04/08/20 11:59 Miscellaneous Information (Consult) 1 ea N/A UD PRN PRN Reason: Consult Stop: 04/07/20 00:34 Miscellaneous Information (Consult Glycemic Management Pharmacy) 1 ea N/A UD PRN PRN Reason: Consult Stop: 04/07/20 05:51 Nutritional Formula (Prosource No Carb) 30 ml PEG BID [facility] Stop: 04/07/20 10:44 Last Admin: 03/12/20 21:44 Dose: 30 ml Documented by: Rivaroxaban (Xarelto) 20 mg PO QDB [facility] Stop: 04/07/20 07:29 Last Admin: 03/12/20 08:14 Dose: 20 mg Documented by: Saccharomyces Boulardii (Florastor) 250 mg PO TID [facility] Stop: 04/07/20 08:59 Last Admin: 03/12/20 21:44 Dose: 250 mg Documented by: Simethicone (Mylicon) 80 mg PO Q6H PRN PRN Reason: Gas Stop: 04/07/20 02:31 Last Admin: 03/08/20 09:14 Dose: 80 mg Documented by: Sodium Biphosphate/Sodium Phosphate (Fleet Enema) 118 ml CO UD PRN PRN Reason: Constipation Stop: 04/07/20 02:31 Sterile Water (Tube Feeding Water Flush) 1 ea NG QID [facility] Stop: 04/07/20 08:59 Last Admin: 03/12/20 21:46 Dose: 1 ea Documented by: Trazodone HCl (Desyrel) 50 mg PEG BID [facility] Stop: 04/07/20 08:59 Last Admin: 03/12/20 22:05 Dose: 50 mg Documented by: PG Care Time/CCT Total # of Minutes Spent Total Time Spent with Patient: Total time spent is greater than 50% in coordination of care (as documented) at patient's floor/unit and/or counseling patient: Coding Level of Care Code 90704 Subseq Hosp Care Lvl 2 Diagnoses Aspiration pneumonia J69.0 Aspiration pneumonia type: unspecified Laterality: unspecified laterality Lung location: unspecified part of lung Acute and chronic respiratory failure J96.21 Respiratory failure complication: hypoxia Hypomagnesemia E83.42 Type 2 diabetes mellitus with hyperglycemia E11.65; Z79.4 Diabetes mellitus penitentiary insulin use: with penitentiary use Epilepsy G40.909 Epilepsy type: unspecified Intractability: not intractable Status epilepticus: without status epilepticus History of venous thrombosis and embolism Z86.718 Dysphasia as late effect of cerebrovascular accident (CVA) I69.321 GERD (gastroesophageal reflux disease) K21.9 Esophagitis presence: esophagitis presence not specified COPD (chronic obstructive pulmonary disease) J44.9 COPD type: unspecified COPD HLD (hyperlipidemia) E78.5 Hyperlipidemia type: unspecified PVD (peripheral vascular disease) I73.9 CKD (chronic kidney disease) N18.9 Chronic kidney disease stage: unspecified stage (1) Type 2 diabetes mellitus with hyperglycemia Diabetes mellitus computer terminal operator insulin use: with computer terminal operator use Qualified Code(s): E11.65 - Type 2 diabetes mellitus with hyperglycemia; Z79.4 - terminal carman (current) use of insulin (2) Epilepsy Epilepsy type: unspecified Intractability: not intractable Status epilepticus: without status epilepticus Qualified Code(s): G40.909 - Epilepsy, unspecified, not intractable, without status epilepticus (3) Acute and chronic respiratory failure Respiratory failure complication: hypoxia Qualified Code(s): J96.21 - Acute and chronic respiratory failure with hypoxia (4) HLD (hyperlipidemia) Hyperlipidemia type: unspecified Qualified Code(s): E78.5 - Hyperlipidemia, unspecified (5) CKD (chronic kidney disease) Chronic kidney disease stage: unspecified stage Qualified Code(s): N18.9 - Chronic kidney disease, unspecified (6) Aspiration pneumonia Aspiration pneumonia type: unspecified Laterality: unspecified laterality Lung location: unspecified part of lung Qualified Code(s): J69.0 - Pneumonitis due to inhalation of food and vomit (7) COPD (chronic obstructive pulmonary disease) COPD type: unspecified COPD Qualified Code(s): J44.9 - Chronic obstructive pulmonary disease, unspecified (8) GERD (gastroesophageal reflux disease) Esophagitis presence: esophagitis presence not specified Qualified Code(s): K21.9 - Gastro-esophageal reflux disease without esophagitis
[2020-03-12] MEDS: guaiFENesin SUGAR FREE 200 MG/10 ML UDC GT SCH ×2 (18:34→23:47)
[2020-03-12] MEDS: ATORVASTATIN 20 MG TAB PEG SCH (21:44)
[2020-03-12] MEDS: PEPTAMEN 1.5 CAL 1,000 ML BAG PEG SCH (21:56)
[2020-03-13] MEDS: INSULIN ASPART 100 UNITS/ML 3 ML PEN SC SCH ×6 (00:03→20:34)
[2020-03-13] MEDS: ALBUT/IPRATROP 3MG/0.5MG NEB 3 ML VIAL INH SCH ×4 (01:33→19:59)
[2020-03-13] MEDS: PIPERACILLIN/TAZOBACTAM 3.375 GM in DEXTROSE 5% 100 ML IV SCH ×3 (05:48→22:18)
[2020-03-13] MEDS: guaiFENesin SUGAR FREE 200 MG/10 ML UDC GT SCH ×3 (05:48→19:06)
[2020-03-13] MEDS: BUDESONIDE 0.5 MG/2 ML VIAL (PULMICORT) INH SCH ×3 (06:58→19:59)
[2020-03-13 06:59] LABS: Hematocrit (blood only) 35.6 % (42-52); Hemoglobin 11.4 g/dL (14.0-18.0); Mean Corpuscular Hemoglobin 31.8 pg (25-34); Mean Corpuscular Volume 99.2 fL (80-100); Mean Platelet Volume 9.5 fL (7.4-10.4); Platelet Count 382 K/uL (130-400); RDW Coefficient of Variation 14.9 % (11.5-14.5); RDW Standard Deviation 52.9 fL (36.4-46.3); Red Blood Count 3.59 M/uL (4.7-6.1); White Blood Count 6.97 K/uL (4.8-10.8)
[2020-03-13 07:28] LABS: BUN Creatinine Ratio 14.8 (10-20); Calcium 9.4 mg/dl (8.5-10.1); Creatinine Clr Calc Pharmacy 127.7 ml/min; Est GFR (African American) 124.9; Est GFR (Non-African American) 107.8; Potassium 3.7 mmol/L (3.5-5.1)
[2020-03-13] MEDS: RIVAROXABAN 20 MG TAB PO SCH (08:43)
[2020-03-13] MEDS: CITALOPRAM 40 MG TAB PEG SCH (08:44)
[2020-03-13] MEDS: MICONAZOLE NITRATE POWDER 43 GM TOP SCH ×2 (08:44→20:38)
[2020-03-13] MEDS: SACCHAROMYCES BOULARDII 250 MG CAP PO SCH ×3 (08:46→20:38)
[2020-03-13] MEDS: levETIRAcetam ORAL SOLN 100MG/ML PEG SCH ×2 (08:47→20:38)
[2020-03-13] MEDS: INSULIN GLARGINE SOLOSTAR 100 UNITS/ML 3 ML PEN SC SCH ×2 (08:52→20:31)
[2020-03-13] MEDS: TRAZODONE HCL 50 MG TAB PEG SCH ×2 (08:55→20:38)
[2020-03-13] MEDS: ASPIRIN 81 MG CHEW GT SCH (08:55)
[2020-03-13] MEDS ORDERED: PNEUMOCOCCAL Polysaccharide Vaccine 25mcg/0.5mL vial/Syr IM ONE (09:45)
[2020-03-13] MEDS: LANSOPRAZOLE 30 MG SOLTAB PEG SCH (11:06)
[2020-03-13] MEDS: PROSOURCE NO CARB 30 ML/PKT PEG SCH ×2 (11:07→20:38)
[2020-03-13] MEDS: CARBAMAZEPINE 100 MG CHEW TAB PO SCH ×3 (11:08→20:38)
[2020-03-13] MEDS: TUBE FEEDING WATER FLUSH NG SCH ×4 (11:08→20:38)
[2020-03-13] MEDS: ATORVASTATIN 20 MG TAB PEG SCH (20:38)
--- NOTE | 2020-03-13 22:44 | Hospitalist Progress Note ---
Date of Service March 13, 2020 Assessment & Plan (1) Aspiration pneumonia: pt has aspiration pneumonia likely due to aspiration of tube feeding, continues on zosyn and complete 7 day course, try to feed sitting upright and employ aspiration precautions still no fever, WBC normal, vitals stable ongoing issue, aspirating despite tube feeds unsure if he was wearing oxygen when he was at SNF last day of antibiotics on 03/15 (2) Acute and chronic respiratory failure: worsened by aspiration, remains off bipap has resolved acute phase stable on 2-3L for four days (3) Hypomagnesemia: repleted (4) Type 2 diabetes mellitus with hyperglycemia: has had challenges with TF and glucose control most recently has ssi q 4 hours and lantus sugars stable for several days (5) Epilepsy: no seizures, remains on keppra and tegretol (6) History of venous thrombosis and embolism: xarelto continues (7) Dysphasia as late effect of cerebrovascular accident (CVA): high aspiration risk (8) GERD (gastroesophageal reflux disease): (9) COPD (chronic obstructive pulmonary disease): continues on inhalers has been transitioned to RA (10) HLD (hyperlipidemia): (11) PVD (peripheral vascular disease): (12) CKD (chronic kidney disease): Admission and Anticipated Discharge Date Admission Date: March 08, 2020 Subjective no major changes today tolerating tube feeds Review of Systems Review of Systems: Unobtainable due to cognitive status Physical Exam Constitutional: well developed and well nourished; no acute distress Eyes: reactive pupils; + EOM not intact (eyes crossed) ENMT: external ear and nose normal, oropharynx normal Neck: trachea midline, no thyromegaly Respiratory: normal respiratory effort, lungs clear to auscultation Cardiovascular: RRR, no murmur, no edema Gastrointestinal (Abdomen): normal bowel sounds, soft, nontender, no hepatosplenomegaly (PEG tube) Musculoskeletal: Head/Neck/Chest: normocephalic and head atraumatic Extremities: + limited ROM of extremities and + abnormal strength (right sided paresis); + extremities abnormal to inspection (right hand contracture) Skin: no rashes, warm and dry Neurologic: CN's II-XI intact bilaterally, + focal motor deficit (right sided paresis) and awake Speech / Cognition: + abnormal speech (non verbal) Psychiatric: Orientation: alert; + not oriented x 3 Lymphatic: no cervical or axillary lymphadenopathy Results & Data Results & Data ([facility]) Vital Signs (Past 12 Hours) Vital Signs Temp Pulse Resp BP Pulse Ox 03/13/20 20:00 85 18 92 03/13/20 16:04 37.3 C 80 20 103/64 90 03/13/20 13:30 81 22 91 Laboratory Results Laboratory Results - last 24 hr 03/12/20 03/13/20 03/13/20 23:57 03:57 06:39 WBC 6.97 RBC 3.59 L Hgb 11.4 L Hct 35.6 L MCV 99.2 MCH 31.8 MCHC 32.0 RDW Std Deviation 52.9 H RDW Coeff of Nick 14.9 H Plt Count 382 MPV 9.5 Sodium Potassium Chloride Carbon Dioxide Anion Gap BUN Creatinine Est Cr Clr Drug Dosing Est GFR ( Amer) Est GFR (Non-Af Amer) BUN/Creatinine Ratio Glucose POC Glucose 133 H 138 H Calcium 03/13/20 03/13/20 03/13/20 06:39 08:14 12:12 WBC RBC Hgb Hct MCV MCH MCHC RDW Std Deviation RDW Coeff of Nick Plt Count MPV Sodium 140 Potassium 3.7 Chloride 105 Carbon Dioxide 29 Anion Gap 6.0 BUN 9 Creatinine 0.60 Est Cr Clr Drug Dosing 127.7 Est GFR ( Amer) 124.9 Est GFR (Non-Af Amer) 107.8 BUN/Creatinine Ratio 14.8 Glucose 96 POC Glucose 175 H 188 H Calcium 9.4 03/13/20 03/13/20 16:13 20:14 WBC RBC Hgb Hct MCV MCH MCHC RDW Std Deviation RDW Coeff of Nikc Plt Count MPV Sodium Potassium Chloride Carbon Dioxide Anion Gap BUN Creatinine Est Cr Clr Drug Dosing Est GFR ( Amer) Est GFR (Non-Af Amer) BUN/Creatinine Ratio Glucose POC Glucose 174 H 111 H Calcium Medications Administered Current Inpatient Medications Albuterol (Duoneb) 3 ml INH Q6R [facility] Stop: 04/07/20 06:59 Last Admin: 03/13/20 19:59 Dose: 3 ml Documented by: Aspirin (Aspirin Chew) 81 mg GT DAILY [facility] Stop: 04/07/20 08:59 Last Admin: 03/13/20 08:55 Dose: 81 mg Documented by: Atorvastatin Calcium (Lipitor) 20 mg PEG HS [facility] Stop: 04/07/20 20:59 Last Admin: 03/13/20 20:38 Dose: 20 mg Documented by: Bisacodyl (Dulcolax) 10 mg NM UD PRN PRN Reason: Constipation Stop: 04/07/20 02:31 Budesonide (Pulmicort Respules) 0.5 mg INH TIDR [facility] Stop: 04/07/20 06:59 Last Admin: 03/13/20 19:59 Dose: 0.5 mg Documented by: Carbamazepine (Tegretol) 100 mg PO HS [facility] Stop: 04/07/20 20:59 Last Admin: 03/13/20 20:38 Dose: 100 mg Documented by: Carbamazepine (Tegretol) 400 mg PO BID [facility] Stop: 04/07/20 08:59 Last Admin: 03/13/20 20:37 Dose: 400 mg Documented by: Citalopram Hydrobromide (Celexa) 40 mg PEG DAILY [facility] Stop: 04/07/20 08:59 Last Admin: 03/13/20 08:44 Dose: 40 mg Documented by: Dextrose (Dextrose 50%) 25 - 50 ml IV UD PRN; Protocol PRN Reason: Hypoglycemia Protocol Stop: 04/08/20 11:59 Last Admin: 03/10/20 19:01 Dose: 25 ml Documented by: Docusate Sodium (Colace) 100 mg PO Q72H [facility] Stop: 04/07/20 08:59 Last Admin: 03/11/20 08:13 Dose: 100 mg Documented by: Enteral Nutritional Formula (Peptamen 1.5 Aron) 1,000 ml PEG UD [facility]; Protocol Stop: 04/07/20 10:44 Last Admin: 03/12/20 21:56 Dose: 1,000 ml Documented by: Glucagon (Glucagen) 1 mg IM UD PRN; Protocol PRN Reason: Hypoglycemia Protocol Stop: 04/08/20 11:59 Glucose (Glucose 40%) 15 - 30 gm PO UD PRN; Protocol PRN Reason: Hypoglycemia Protocol Stop: 04/08/20 11:59 Glucose (Dex4 Glucose) 4 - 8 tabs PO UD PRN; Protocol PRN Reason: Hypoglycemia Protocol Stop: 04/08/20 11:59 Guaifenesin (Robitussin Sugar Free) 200 mg GT Q6 [facility] Stop: 04/11/20 18:14 Last Admin: 03/13/20 19:06 Dose: 200 mg Documented by: Piperacillin Sod/Tazobactam (Sod 3.375 gm/ Dextrose) 115 mls @ 28.75 mls/hr IV Q8H [facility]; Protocol Stop: 03/15/20 05:59 Last Admin: 03/13/20 22:18 Dose: 28.8 mls/hr Documented by: Insulin Aspart (Novolog Flexpen) 0 units SC Q4 [facility]; Protocol Stop: 04/10/20 15:59 Last Admin: 03/13/20 20:34 Dose: 3 units Documented by: Insulin Glargine (Lantus Solostar Pen) 0 units SC BID [facility]; Protocol Stop: 04/07/20 20:59 Last Admin: 03/13/20 20:31 Dose: 15 units Documented by: Lansoprazole (Prevacid) 30 mg PEG QAM [facility] Stop: 04/07/20 08:59 Last Admin: 03/13/20 11:06 Dose: 30 mg Documented by: Levetiracetam (Keppra) 1,000 mg PEG BID [facility] Stop: 04/07/20 08:59 Last Admin: 03/13/20 20:38 Dose: 1,000 mg Documented by: Magnesium Hydroxide (Milk Of Magnesia) 30 ml PEG UD PRN PRN Reason: Constipation Stop: 04/07/20 02:31 Miconazole Nitrate (Desenex) 1 appln TOP BID [facility] Stop: 04/07/20 08:59 Last Admin: 03/13/20 20:38 Dose: 1 appln Documented by: Miscellaneous (Carbohydrates For Hypoglycemia) 15 - 30 gm PO UD PRN PRN Reason: Hypoglycemia Treatment Stop: 04/08/20 11:59 Miscellaneous Information (Consult) 1 ea N/A UD PRN PRN Reason: Consult Stop: 04/07/20 00:34 Miscellaneous Information (Consult Glycemic Management Pharmacy) 1 ea N/A UD PRN PRN Reason: Consult Stop: 04/07/20 05:51 Nutritional Formula (Prosource No Carb) 30 ml PEG BID [facility] Stop: 04/07/20 10:44 Last Admin: 03/13/20 20:38 Dose: 30 ml Documented by: Rivaroxaban (Xarelto) 20 mg PO QDB [facility] Stop: 04/07/20 07:29 Last Admin: 03/13/20 08:43 Dose: 20 mg Documented by: Saccharomyces Boulardii (Florastor) 250 mg PO TID [facility] Stop: 04/07/20 08:59 Last Admin: 03/13/20 20:38 Dose: 250 mg Documented by: Simethicone (Mylicon) 80 mg PO Q6H PRN PRN Reason: Gas Stop: 04/07/20 02:31 Last Admin: 03/08/20 09:14 Dose: 80 mg Documented by: Sodium Biphosphate/Sodium Phosphate (Fleet Enema) 118 ml NM UD PRN PRN Reason: Constipation Stop: 04/07/20 02:31 Sterile Water (Tube Feeding Water Flush) 1 ea NG QID [facility] Stop: 04/07/20 08:59 Last Admin: 03/13/20 20:38 Dose: 1 ea Documented by: Trazodone HCl (Desyrel) 50 mg PEG BID [facility] Stop: 04/07/20 08:59 Last Admin: 03/13/20 20:38 Dose: 50 mg Documented by: PG Care Time/CCT Total # of Minutes Spent Total Time Spent with Patient: Total time spent is greater than 50% in coordination of care (as documented) at patient's floor/unit and/or counseling patient: Coding Level of Care Code 64647 Subseq Hosp Care Lvl 2 Diagnoses Aspiration pneumonia J69.0 Aspiration pneumonia type: unspecified Laterality: unspecified laterality Lung location: unspecified part of lung Acute and chronic respiratory failure J96.21 Respiratory failure complication: hypoxia Hypomagnesemia E83.42 Type 2 diabetes mellitus with hyperglycemia E11.65; Z79.4 Diabetes mellitus custodial insulin use: with termite exterminator use Epilepsy G40.909 Epilepsy type: unspecified Intractability: not intractable Status epilepticus: without status epilepticus History of venous thrombosis and embolism Z86.718 Dysphasia as late effect of cerebrovascular accident (CVA) I69.321 GERD (gastroesophageal reflux disease) K21.9 Esophagitis presence: esophagitis presence not specified COPD (chronic obstructive pulmonary disease) J44.9 COPD type: unspecified COPD HLD (hyperlipidemia) E78.5 Hyperlipidemia type: unspecified PVD (peripheral vascular disease) I73.9 CKD (chronic kidney disease) N18.9 Chronic kidney disease stage: unspecified stage (1) Type 2 diabetes mellitus with hyperglycemia Diabetes mellitus termite exterminator insulin use: with termite exterminator use Qualified Code(s): E11.65 - Type 2 diabetes mellitus with hyperglycemia; Z79.4 - exterminator termite (current) use of insulin (2) Epilepsy Epilepsy type: unspecified Intractability: not intractable Status epilepticus: without status epilepticus Qualified Code(s): G40.909 - Epilepsy, unspecified, not intractable, without status epilepticus (3) Acute and chronic respiratory failure Respiratory failure complication: hypoxia Qualified Code(s): J96.21 - Acute and chronic respiratory failure with hypoxia (4) HLD (hyperlipidemia) Hyperlipidemia type: unspecified Qualified Code(s): E78.5 - Hyperlipidemia, unspecified (5) CKD (chronic kidney disease) Chronic kidney disease stage: unspecified stage Qualified Code(s): N18.9 - Chronic kidney disease, unspecified (6) Aspiration pneumonia Aspiration pneumonia type: unspecified Laterality: unspecified laterality Lung location: unspecified part of lung Qualified Code(s): J69.0 - Pneumonitis due to inhalation of food and vomit (7) COPD (chronic obstructive pulmonary disease) COPD type: unspecified COPD Qualified Code(s): J44.9 - Chronic obstructive pulmonary disease, unspecified (8) GERD (gastroesophageal reflux disease) Esophagitis presence: esophagitis presence not specified Qualified Code(s): K21.9 - Gastro-esophageal reflux disease without esophagitis
[2020-03-13] MEDS: PEPTAMEN 1.5 CAL 1,000 ML BAG PEG SCH (22:52)
[2020-03-14] MEDS: guaiFENesin SUGAR FREE 200 MG/10 ML UDC GT SCH ×4 (00:35→19:10)
[2020-03-14] MEDS: INSULIN ASPART 100 UNITS/ML 3 ML PEN SC SCH ×6 (00:35→21:35)
[2020-03-14] MEDS: ALBUT/IPRATROP 3MG/0.5MG NEB 3 ML VIAL INH SCH ×3 (00:56→14:24)
[2020-03-14] MEDS: PIPERACILLIN/TAZOBACTAM 3.375 GM in DEXTROSE 5% 100 ML IV SCH ×3 (05:39→21:33)
[2020-03-14] MEDS: BUDESONIDE 0.5 MG/2 ML VIAL (PULMICORT) INH SCH ×2 (07:19→14:24)
[2020-03-14] MEDS: RIVAROXABAN 20 MG TAB PO SCH (09:07)
[2020-03-14] MEDS: DOCUSATE SODIUM SYRUP 100 MG/10 ML UDC PO SCH (09:08)
[2020-03-14] MEDS: CITALOPRAM 40 MG TAB PEG SCH (09:08)
[2020-03-14] MEDS: MICONAZOLE NITRATE POWDER 43 GM TOP SCH ×2 (09:08→21:22)
[2020-03-14] MEDS: levETIRAcetam ORAL SOLN 100MG/ML PEG SCH ×2 (09:09→21:23)
[2020-03-14] MEDS: SACCHAROMYCES BOULARDII 250 MG CAP PO SCH ×3 (09:09→21:23)
[2020-03-14] MEDS: PROSOURCE NO CARB 30 ML/PKT PEG SCH ×2 (09:10→21:23)
[2020-03-14] MEDS: CARBAMAZEPINE 100 MG CHEW TAB PO SCH ×3 (09:11→21:23)
[2020-03-14] MEDS: INSULIN GLARGINE SOLOSTAR 100 UNITS/ML 3 ML PEN SC SCH ×2 (09:12→21:33)
[2020-03-14] MEDS: LANSOPRAZOLE 30 MG SOLTAB PEG SCH (09:14)
[2020-03-14] MEDS: TUBE FEEDING WATER FLUSH NG SCH ×4 (09:17→21:23)
[2020-03-14] MEDS: TRAZODONE HCL 50 MG TAB PEG SCH ×2 (09:17→21:29)
[2020-03-14] MEDS: ASPIRIN 81 MG CHEW GT SCH (09:17)
[2020-03-14] MEDS: PEPTAMEN 1.5 CAL 1,000 ML BAG PEG SCH (21:21)
[2020-03-14] MEDS: ATORVASTATIN 20 MG TAB PEG SCH (21:23)
--- NOTE | 2020-03-14 21:41 | Hospitalist Progress Note ---
Date of Service March 14, 2020 Assessment & Plan (1) Aspiration pneumonia: pt has aspiration pneumonia likely due to aspiration of tube feeding, continues on zosyn and complete 7 day course, try to feed sitting upright and employ aspiration precautions still no fever, WBC normal, vitals stable ongoing issue, aspirating despite tube feeds unsure if he was wearing oxygen when he was at [facility] last day of antibiotics on 03/15 check COVID 19 screen so he can return to [facility] (2) Acute and chronic respiratory failure: worsened by aspiration, remains off bipap has resolved acute phase stable on 2-3L for four days (3) Hypomagnesemia: repleted (4) Type 2 diabetes mellitus with hyperglycemia: has had challenges with TF and glucose control most recently has ssi q 4 hours and lantus sugars stable for several days (5) Epilepsy: no seizures, remains on keppra and tegretol (6) History of venous thrombosis and embolism: xarelto continues (7) Dysphasia as late effect of cerebrovascular accident (CVA): high aspiration risk (8) GERD (gastroesophageal reflux disease): (9) COPD (chronic obstructive pulmonary disease): continues on inhalers has been transitioned to RA (10) HLD (hyperlipidemia): (11) PVD (peripheral vascular disease): (12) CKD (chronic kidney disease): Admission and Anticipated Discharge Date Admission Date: March 08, 2020 Subjective CM made me aware that he will need COVID screen, ordered today no major changes, no issues over night Review of Systems Review of Systems: Unobtainable due to cognitive status Physical Exam Constitutional: well developed and well nourished; no acute distress Eyes: reactive pupils; + EOM not intact (eyes crossed) ENMT: external ear and nose normal, oropharynx normal Neck: trachea midline, no thyromegaly Respiratory: normal respiratory effort, lungs clear to auscultation Cardiovascular: RRR, no murmur, no edema Gastrointestinal (Abdomen): normal bowel sounds, soft, nontender, no hepatosplenomegaly (PEG tube) Musculoskeletal: Head/Neck/Chest: normocephalic and head atraumatic Extre mities: + limited ROM of extremities and + abnormal strength (right sided paresis); + extremities abnormal to inspection (right hand contracture) Skin: no rashes, warm and dry Neurologic: CN's II-XI intact bilaterally, + focal motor deficit (right sided paresis) and awake Speech / Cognition: + abnormal speech (non verbal) Psychiatric: Orientation: alert; + not oriented x 3 Lymphatic: no cervical or axillary lymphadenopathy Results & Data Results & Data ([facility]) Vital Signs (Past 12 Hours) Vital Signs Temp Pulse Pulse Resp BP Pulse Ox 03/14/20 16:29 37.4 C 88 16 125/67 90 03/14/20 12:00 63 18 92 Laboratory Results Laboratory Results - last 24 hr 03/14/20 03/14/20 03/14/20 00:00 04:07 09:10 POC Glucose 158 H 181 H 165 H SARS-CoV-2 RNA (RT-PCR) 03/14/20 03/14/20 03/14/20 12:14 16:13 20:13 POC Glucose 101 H 118 H 119 H SARS-CoV-2 RNA (RT-PCR) 03/14/20 03/14/20 Unknown Unknown POC Glucose SARS-CoV-2 RNA (RT-PCR) Cancelled Pending Medications Administered Current Inpatient Medications Aspirin (Aspirin Chew) 81 mg GT DAILY BARBARA Stop: 04/07/20 08:59 Last Admin: 03/14/20 09:17 Dose: 81 mg Documented by: Atorvastatin Calcium (Lipitor) 20 mg PEG HS BARBARA Stop: 04/07/20 20:59 Last Admin: 03/14/20 21:23 Dose: 20 mg Documented by: Bisacodyl (Dulcolax) 10 mg GA UD PRN PRN Reason: Constipation Stop: 04/07/20 02:31 Carbamazepine (Tegretol) 100 mg PO HS BARBARA Stop: 04/07/20 20:59 Last Admin: 03/14/20 21:23 Dose: 100 mg Documented by: Carbamazepine (Tegretol) 400 mg PO BID BARBARA Stop: 04/07/20 08:59 Last Admin: 03/14/20 21:23 Dose: 400 mg Documented by: Citalopram Hydrobromide (Celexa) 40 mg PEG DAILY BARBARA Stop: 04/07/20 08:59 Last Admin: 03/14/20 09:08 Dose: 40 mg Documented by: Dextrose (Dextrose 50%) 25 - 50 ml IV UD PRN; Protocol PRN Reason: Hypoglycemia Protocol Stop: 04/08/20 11:59 Last Admin: 05/24/20 19:01 Dose: 25 ml Documented by: Docusate Sodium (Colace) 100 mg PO Q72H BARBARA Stop: 04/07/20 08:59 Last Admin: 03/14/20 09:08 Dose: 100 mg Documented by: Enteral Nutritional Formula (Peptamen 1.5 Aron) 1,000 ml PEG DAILY BARBARA; Protocol Stop: 04/13/20 19:44 Last Admin: 03/14/20 21:21 Dose: 1,000 ml Documented by: Glucagon (Glucagen) 1 mg IM UD PRN; Protocol PRN Reason: Hypoglycemia Protocol Stop: 04/08/20 11:59 Glucose (Glucose 40%) 15 - 30 gm PO UD PRN; Protocol PRN Reason: Hypoglycemia Protocol Stop: 04/08/20 11:59 Glucose (Dex4 Glucose) 4 - 8 tabs PO UD PRN; Protocol PRN Reason: Hypoglycemia Protocol Stop: 04/08/20 11:59 Guaifenesin (Robitussin Sugar Free) 200 mg GT Q6 BARBARA Stop: 04/11/20 18:14 Last Admin: 03/14/20 19:10 Dose: 200 mg Documented by: Piperacillin Sod/Tazobactam (Sod 3.375 gm/ Dextrose) 115 mls @ 28.75 mls/hr IV Q8H BARBARA; Protocol Stop: 03/15/20 05:59 Last Admin: 03/14/20 21:33 Dose: 28.8 mls/hr Documented by: Insulin Aspart (Novolog Flexpen) 0 units SC Q4 BARBARA; Protocol Stop: 04/10/20 15:59 Last Admin: 03/14/20 16:28 Dose: 3 units Documented by: Insulin Glargine (Lantus Solostar Pen) 0 units SC BID BARBARA; Protocol Stop: 04/07/20 20:59 Last Admin: 03/14/20 09:12 Dose: 20 units Documented by: Lansoprazole (Prevacid) 30 mg PEG QAM BARBARA Stop: 04/07/20 08:59 Last Admin: 03/14/20 09:14 Dose: 30 mg Documented by: Levetiracetam (Keppra) 1,000 mg PEG BID BARBARA Stop: 04/07/20 08:59 Last Admin: 03/14/20 21:23 Dose: 1,000 mg Documented by: Magnesium Hydroxide (Milk Of Magnesia) 30 ml PEG UD PRN PRN Reason: Constipation Stop: 04/07/20 02:31 Miconazole Nitrate (Desenex) 1 appln TOP BID BARBARA Stop: 04/07/20 08:59 Last Admin: 03/14/20 21:22 Dose: 1 appln Documented by: Miscellaneous (Carbohydrates For Hypoglycemia) 15 - 30 gm PO UD PRN PRN Reason: Hypoglycemia Treatment Stop: 04/08/20 11:59 Miscellaneous Information (Consult) 1 ea N/A UD PRN PRN Reason: Consult Stop: 03/15/20 05:59 Miscellaneous Information (Consult Glycemic Management Pharmacy) 1 ea N/A UD PRN PRN Reason: Consult Stop: 04/07/20 05:51 Nutritional Formula (Prosource No Carb) 30 ml PEG BID BARBARA Stop: 04/07/20 10:44 Last Admin: 03/14/20 21:23 Dose: 30 ml Documented by: Rivaroxaban (Xarelto) 20 mg PO QDB BARBARA Stop: 04/07/20 07:29 Last Admin: 03/14/20 09:07 Dose: 20 mg Documented by: Saccharomyces Boulardii (Florastor) 250 mg PO TID BARBARA Stop: 04/07/20 08:59 Last Admin: 03/14/20 21:23 Dose: 250 mg Documented by: Simethicone (Mylicon) 80 mg PO Q6H PRN PRN Reason: Gas Stop: 04/07/20 02:31 Last Admin: 03/08/20 09:14 Dose: 80 mg Documented by: Sodium Biphosphate/Sodium Phosphate (Fleet Enema) 118 ml GA UD PRN PRN Reason: Constipation Stop: 04/07/20 02:31 Sterile Water (Tube Feeding Water Flush) 1 ea NG QID BARBARA Stop: 04/07/20 08:59 Last Admin: 03/14/20 21:23 Dose: 1 ea Documented by: Trazodone HCl (Desyrel) 50 mg PEG BID BARBARA Stop: 04/07/20 08:59 Last Admin: 03/14/20 21:29 Dose: 50 mg Documented by: PG Care Time/CCT Total # of Minutes Spent Total Time Spent with Patient: Total time spent is greater than 50% in coordination of care (as documented) at patient's floor/unit and/or counseling patient: Coding Level of Care Code 96133 Subs Hosp Care Lvl 1 Diagnoses Aspiration pneumonia J69.0 Aspiration pneumonia type: unspecified Laterality: unspecified laterality Lung location: unspecified part of lung Acute and chronic respiratory failure J96.21 Respiratory failure complication: hypoxia Hypomagnesemia E83.42 Type 2 diabetes mellitus with hyperglycemia E11.65; Z79.4 Diabetes mellitus terminal make up operator insulin use: with terminal make up operator use Epilepsy G40.909 Epilepsy type: unspecified Intractability: not intractable Status epilepticus: without status epilepticus History of venous thrombosis and embolism Z86.718 Dysphasia as late effect of cerebrovascular accident (CVA) I69.321 GERD (gastroesophageal reflux disease) K21.9 Esophagitis presence: esophagitis presence not specified COPD (chronic obstructive pulmonary disease) J44.9 COPD type: unspecified COPD HLD (hyperlipidemia) E78.5 Hyperlipidemia type: unspecified PVD (peripheral vascular disease) I73.9 CKD (chronic kidney disease) N18.9 Chronic kidney disease stage: unspecified stage (1) Aspiration pneumonia Aspiration pneumonia type: unspecified Laterality: unspecified laterality Lung location: unspecified part of lung Qualified Code(s): J69.0 - Pneumonitis due to inhalation of food and vomit (2) Acute and chronic respiratory failure Respiratory failure complication: hypoxia Qualified Code(s): J96.21 - Acute and chronic respiratory failure with hypoxia (3) Type 2 diabetes mellitus with hyperglycemia Diabetes mellitus retirement insulin use: with retirement use Qualified Code(s): E11.65 - Type 2 diabetes mellitus with hyperglycemia; Z79.4 - MCFP (current) use of insulin (4) Epilepsy Epilepsy type: unspecified Intractability: not intractable Status epilepticus: without status epilepticus Qualified Code(s): G40.909 - Epilepsy, unspecified, not intractable, without status epilepticus (5) GERD (gastroesophageal reflux disease) Esophagitis presence: esophagitis presence not specified Qualified Code(s): K21.9 - Gastro-esophageal reflux disease without esophagitis (6) COPD (chronic obstructive pulmonary disease) COPD type: unspecified COPD Qualified Code(s): J44.9 - Chronic obstructive pulmonary disease, unspecified (7) HLD (hyperlipidemia) Hyperlipidemia type: unspecified Qualified Code(s): E78.5 - Hyperlipidemia, unspecified (8) CKD (chronic kidney disease) Chronic kidney disease stage: unspecified stage Qualified Code(s): N18.9 - Chronic kidney disease, unspecified
[2020-03-15] MEDS: INSULIN ASPART 100 UNITS/ML 3 ML PEN SC SCH ×3 (00:19→09:31)
[2020-03-15] MEDS: guaiFENesin SUGAR FREE 200 MG/10 ML UDC GT SCH ×2 (00:19→05:04)
[2020-03-15] MEDS: ALBUT/IPRATROP 3MG/0.5MG NEB 3 ML VIAL NEB SCH ×3 (01:16→13:08)
--- NOTE | 2020-03-15 07:13 | XRay Report ---
XR chest 1V portable CLINICAL HISTORY: Increased work of breathing COMPARISON STUDY: Chest radiograph March 08, 2020. FINDINGS: Incidental note is made of multiple old right rib fractures. Cardiac size is normal. Medias tinal contours are unremarkable. There is no pneumothorax or pleural effusion. No lobar consolidation is present. There is mild right lower lung reticulonodular interstitial thickening. There may be min imal left infrahilar opacity. IMPRESSION: Mild bilateral lower lung interstitial thickening. This may reflect a mild infectious pr ocess. ACT 112: Negative or not required by law. Electronically signed by: Ulysses Barron M.D. 03/15/2020 7:12 AM
[2020-03-15 08:26] LABS: Hematocrit (blood only) 34.2 % (42-52); Hemoglobin 10.8 g/dL (14.0-18.0); Mean Corpuscular Hemoglobin 31.7 pg (25-34); Mean Corpuscular Hgb Conc 31.6 g/dL (32-36); Mean Corpuscular Volume 100.3 fL (80-100); Mean Platelet Volume 9.5 fL (7.4-10.4); Platelet Count 391 K/uL (130-400); RDW Coefficient of Variation 15.2 % (11.5-14.5); RDW Standard Deviation 55.1 fL (36.4-46.3); Red Blood Count 3.41 M/uL (4.7-6.1); White Blood Count 8.68 K/uL (4.8-10.8)
[2020-03-15] MEDS: MICONAZOLE NITRATE POWDER 43 GM TOP SCH (08:52)
[2020-03-15] MEDS: levETIRAcetam ORAL SOLN 100MG/ML PEG SCH (08:53)
[2020-03-15] MEDS: LANSOPRAZOLE 30 MG SOLTAB PEG SCH (08:53)
[2020-03-15] MEDS: CARBAMAZEPINE 100 MG CHEW TAB PO SCH (08:53)
[2020-03-15] MEDS: SACCHAROMYCES BOULARDII 250 MG CAP PO SCH (08:53)
[2020-03-15] MEDS: PROSOURCE NO CARB 30 ML/PKT PEG SCH (08:54)
[2020-03-15] MEDS: CITALOPRAM 40 MG TAB PEG SCH (08:54)
[2020-03-15] MEDS: TUBE FEEDING WATER FLUSH NG SCH (08:54)
[2020-03-15] MEDS: RIVAROXABAN 20 MG TAB PO SCH (08:54)
[2020-03-15] MEDS: TRAZODONE HCL 50 MG TAB PEG SCH (09:28)
[2020-03-15] MEDS: ASPIRIN 81 MG CHEW GT SCH (09:28)
[2020-03-15] MEDS: INSULIN GLARGINE SOLOSTAR 100 UNITS/ML 3 ML PEN SC SCH (09:32)
[2020-03-15] MEDS: PEPTAMEN 1.5 CAL 1,000 ML BAG PEG SCH (11:13)
--- NOTE | 2020-03-15 11:30 | Pharmacy Report ---
Pharmacy Glycemic Short Note 2 - Date of Service March 15, 2020 - Glycemic Short BSG Results (Last 24 hours): 03/14/20 03/14/20 03/14/20 12:14 16:13 20:13 POC Glucose 101 H 118 H 119 H 03/14/20 03/15/20 03/15/20 23:58 04:02 08:07 POC Glucose 189 H 172 H 166 H OUTPATIENT ANTIDIABETIC REGIMEN: Lantus 28 units SC BID * Metformin * A1c = 8.7% on 02/09/20 INPATIENT INSULIN REGIMEN AND CAUSES OF INSULIN RESISTANCE: ASSESSMENT: 03/15 * Mr. Bergman received 57 units of insulin yesterday * BSGs have been fairly stable * He refused his coverage at 0400 this AM. I discussed with the nurse. Will change Novolog to Regular insulin so that he only needs dosed q6h instead of q4h for tube feed coverage. 03/08: * 64 yo M with recent admission and discharge from [facility] on 03/06 re-admitted 03/08 for PNA * Extensive glycemic data from previous admission - will use that to determine regimen this admission. Biggest difference at this time is that tubefeed rate is starting at 1/2 of what it was and then is titrating up. * Novolog covering tubefeeds utilizing CHO ratio therefore Novolog will be scaled down to start and then scaled up as TF rates increase * Will be slightly less aggressive with Lantus initially 2nd lower TF rates, with parameters to increase dose based on BSG PLAN FOR INPATIENT GLYCEMIC CONTROL: * Hold outpatient oral diabetes medications * Basal insulin * Lantus 15-20 units SQ BID * 15 units for BSG < 140 * 20 units for BSG 140 or more * Bolus insulin - change Novolog to Regular for q6h dosing * Regular insulin per scale Q6hrs * Goal Range: Low 120 mg/dL - High 150 mg/dL * Correction Factor: 25 mg/dL/unit * Nutritional / Prandial insulin per carb ratio of 1 unit per 9 grams CHO consumed PLAN FOR DISCHARGE: * A1c = 8.7% (02/09/20) * To be determined based off SNF capabilities for glycemic control * If continued on Peptamen TF @ 45 ml/min, may consider Lantus 15 units SC BID and add Regular 5 units SC q6h with sliding scale: * Blood Sugar 70-150 administer 0 units * Blood Sugar 151-200 administer 3 units * Blood Sugar 201-250 administer 5 units * Blood Sugar 251-300 administer 7 units * Blood Sugar 301-350 administer 9 units * Blood Sugar 351-400 administer 11 units * Blood Sugar >400 administer 13 units and call Thank you.
[2020-03-15] MEDS ORDERED: INSULIN HUMAN REGULAR SC SCH (12:00)
--- NOTE | 2020-03-15 13:43 | Discharge Summary ---
Date of Service March 15, 2020 Admission HPI Per Admitting Provider Caveat: History limited by - intellectual disability, respiratory distress. Mr. Julio Bergman is a 64 y/o male with past medical history of prior CVA with right hemiplegia, aspiration pneumonia, remote DVT and PE, Acute on chronic respiratory faiure, GERD, epilepsy, DM insulin dependent, MRSA, COPD, HLD, PVD, CKD, feeding tube dependent, who prensented from local SNF with worsening shortness of breath which started sometime this evening. He was discharged yesterday from [facility] after a 10 day hospitalization for same, aspiration pneumonia. He has had numerous episodes of aspiration pneumonia. He was placed on CPAP by [facility]. He has frequent hospitalizations with progressive worsening health. He is non-verbal in room. He is currently on BiPAP. In the ED, he was treated for aspiration pneumonia and started on Vanc and Zosyn. Principal Diagnosis Aspiration pneumonia with acute on chronic hypoxic respiratory failure Discharge Exam Constitutional well developed and well nourished; no acute distress Eyes reactive pupils; + EOM not intact (eyes crossed) ENMT external ear and nose normal, oropharynx normal Neck trachea midline, no thyromegaly Respiratory normal respiratory effort, lungs clear to auscultation Cardiovascular RRR, no murmur, no edema Gastrointestinal (Abdomen) normal bowel sounds, soft, nontender, no hepatosplenomegaly (PEG tube) Musculoskeletal Head/Neck/Chest: normocephalic and head atraumatic Extremities: + limited ROM of extremities and + abnormal strength (right sided paresis); + extremities abnormal to inspection (right hand contracture) Skin no rashes, warm and dry Neurologic CN's II-XI intact bilaterally, + focal motor deficit (right sided paresis) and awake Speech / Cognition: + abnormal speech (non verbal) Psychiatric Orientation: alert; + not oriented x 3 Lymphatic no cervical or axillary lymphadenopathy Discharge Data Allergies Allergy/AdvReac Type Severity Reaction Status Date / Time bee venom protein (honey bee) Allergy Unknown LISTED ON Verified 03/08/20 00:21 MAR pseudoephedrine Allergy Unknown UNKNOWN Verified 03/08/20 00:21 Consultations 03/08/20 00:54 ED Decision to Admit Stat 03/08/20 02:32 Consult Case Management - Discharge Planning Routine Hospital Course (1) Aspiration pneumonia: pt has aspiration pneumonia likely due to aspiration of tube feeding, completed 7 day course of Zosyn need to employ aspiration precautions, keep HOB > 30 degrees at all times no fever, WBC normal, vitals stable for days unsure if he was wearing oxygen when he was at SNF check COVID 19 screen so he can return to [facility] -- NEGATIVE (2) Acute and chronic respiratory failure: worsened by aspiration, remains off bipap has resolved acute phase stable on 2-3L for four days (3) Hypomagnesemia: repleted (4) Type 2 diabetes mellitus with hyperglycemia: has had challenges with TF and glucose control most recently has ssi q 4 hours and lantus sugars stable for several days (5) Epilepsy: no seizures, remains on keppra and tegretol (6) History of venous thrombosis and embolism: xarelto continues (7) Dysphasia as late effect of cerebrovascular accident (CVA): high aspiration risk (8) GERD (gastroesophageal reflux disease): (9) COPD (chronic obstructive pulmonary disease): continues on inhalers has been transitioned to RA (10) HLD (hyperlipidemia): (11) PVD (peripheral vascular disease): (12) CKD (chronic kidney disease): Total Time Total Time Spent Total Time Spent (In Minutes): 20 minutes Discharge Plan Discharge Items Patient Disposition: Transfer [facility] Fac Reason For Visit: PNEUMONIA Discharge Diagnosis: Aspiration event Hemiparesis Dysphagia DM with hyperglycemia Hypernatremia Condition on Discharge: Good Goals: continue tube feeds aspiration precautions with HOB > 30 degrees at all times Activity: Resume your previous activity Non-emergency contact: Primary Care Provider Call non-emergency contact if: your symptoms worsen and you have a fever Follow-up/Referrals: [facility] [Primary Care Provider] - Diet: Nothing by Mouth Addtl Attending Provider Instructions: Medications: no major changes, would only recommend using nebulizers PRN, lungs have been clear here without them, he fights them Acute on chronic hypoxic respiratory failure, likely due to aspiration event, causing some pneumonia completed 7 days of IV antibiotics, no further treatment needed COVID 19 negative back on baseline oxygen need to employ aspiration precautions, keep head of bed > 30 degrees at all times Pending Studies at Discharge: No Stand-Alone Forms: My [facility] Skilled Items Patient informed of condition?: Yes DNR: Yes Discharge Level of Care: Skilled Communicable Disease: No Discharge Prognosis: Stable Lines: None Urinary Catheter: Yes Medications and DC Order Prescriptions: Continued atorvastatin [Lipitor] 20 mg Tablet 20 mg Feeding Tube HS RF: 0 citalopram [Celexa] 40 mg Tablet 40 mg Feeding Tube DAILY RF: 0 trazodone 50 mg Tablet 50 mg Feeding Tube BID RF: 0 guaifenesin [Ri-Tussin] 100 mg/5 mL Liquid 10 ml Feeding Tube Q6H RF: 0 metformin [Glucophage] 1,000 mg Tablet 1,000 mg Feeding Tube BIDM RF: 0 budesonide [Pulmicort] 0.5 mg/2 mL Suspension For Nebulization 0.5 mg INHALATION TID RF: 0 carbamazepine [Tegretol] 100 mg/5 mL Suspension 100 mg Feeding Tube HS RF: 0 levetiracetam [Keppra] 100 mg/mL Solution 10 ml Feeding Tube BID RF: 0 carbamazepine 200 mg/10 mL Suspension 400 mg Feeding Tube BID RF: 0 Xarelto 20 mg Tablet 20 mg G-Tube DAILY RF: 0 ammonium lactate [Ivette-Hydrolac] 12 % Cream 1 applic TOPICAL BID RF: 0 acetaminophen 650 mg/20.3 mL Solution 650 mg feeding tube Q6H PRN (Reason: Pain or Fever < 101) RF: 0 docusate sodium 50 mg/5 mL Liquid 100 mg PO Q3D RF: 0 magnesium hydroxide [Milk of Magnesia] 400 mg/5 mL Suspension 30 ml feeding tube UD PRN (Reason: Constipation) RF: 0 bisacodyl [Dulcolax (bisacodyl)] 10 mg Suppository 10 mg MA UD PRN (Reason: Constipation) RF: 0 Enema 19-7 gram/118 mL Enema 118 ml MA UD PRN (Reason: Constipation) RF: 0 omeprazole 20 mg Capsule,Delayed Release(Dr/Ec) 20 mg feeding tube DAILY RF: 0 aspirin 81 mg Tablet,Chewable 81 mg feeding tube DAILY RF: 0 simethicone [Gas Relief (simethicone)] 80 mg Tablet,Chewable 80 mg PO Q6H PRN (Reason: Gas) RF: 0 Stress Formula Tablet 1 tab feeding tube DAILY RF: 0 Saccharomyces boulardii [Florastor] 250 mg Capsule 250 mg feeding tube TID RF: 0 Anti-Fungal 2 % Powder 1 applic TOPICAL BID RF: 0 Liquid Protein Supp 1 dose G-tube BID RF: 0 Lantus U-100 Insulin 100 unit/mL Solution 28 unit SUBCUT BID Qty: 0 RF: 0 100 Ml Free Water Flush 400 ml feeding tube QID RF: 0 Peptamen 1.5 0.068 gram- 1.5 kcal/mL Liquid 1 ea feeding tube CONT RF: 0 Changed ipratropium-albuterol 0.5 mg-3 mg(2.5 mg base)/3 mL Solution For Nebulization 3 ml INHALATION Q6H PRN (Reason: dyspnea) Qty: 0 RF: 0 Discharge Orders: Discharge Order (Routine); Ordered 03/15/20 Ordered By: Jame Nazario Admission Data Admit Date/Time: 03/08/20 01:35 Attending Provider: Jame Nazario Admit Provider: Axel Lucero Primary Care Provider: DicksonSanchez grayson Other Providers: George Valderrama Other Interventions: Discharge Summary Assessment (RN) Last Done: 03/15/20 13:52 DC Date/Time DO NOT enter until pt leaves facility: 03/15/20 14:05 Coding Level of Care Code D/C Day Management <30 mins Diagnoses Aspiration pneumonia J69.0 Aspiration pneumonia type: unspecified Laterality: unspecified laterality Lung location: unspecified part of lung Acute and chronic respiratory failure J96.21 Respiratory failure complication: hypoxia Hypomagnesemia E83.42 Type 2 diabetes mellitus with hyperglycemia E11.65; Z79.4 Diabetes mellitus termite control servicer insulin use: with longterm use Epilepsy G40.909 Epilepsy type: unspecified Intractability: not intractable Status epilepticus: without status epilepticus History of venous thrombosis and embolism Z86.718 Dysphasia as late effect of cerebrovascular accident (CVA) I69.321 GERD (gastroesophageal reflux disease) K21.9 Esophagitis presence: esophagitis presence not specified COPD (chronic obstructive pulmonary disease) J44.9 COPD type: unspecified COPD HLD (hyperlipidemia) E78.5 Hyperlipidemia type: unspecified PVD (peripheral vascular disease) I73.9 CKD (chronic kidney disease) N18.9 Chronic kidney disease stage: unspecified stage
== END 2020-03-15 14:05 | DRG 177 ==
LOC: ED 23:38 → SUATTDRO 03-08 01:35 → 1E 03-08 01:35 → 2S 03-09 17:07 → 2N 03-09 17:29 → 3N 03-12 14:17
DX: E83.42 Hypomagnesemia; K21.9 Gastro-esophageal reflux disease without esophagitis; F39 Unspecified mood [affective] disorder; I69.351 Hemiplegia and hemiparesis following cerebral infarction affecting right dominant side; Z91.030 Bee allergy status; Z79.899 Other long term (current) drug therapy; I69.321 Dysphasia following cerebral infarction; Z87.01 Personal history of pneumonia (recurrent); Z66 Do not resuscitate; I12.9 Hypertensive chronic kidney disease with stage 1 through stage 4 chronic kidney disease, or unspecified chronic kidney disease; J96.21 Acute and chronic respiratory failure with hypoxia; J44.9 Chronic obstructive pulmonary disease, unspecified; Z86.711 Personal history of pulmonary embolism; E11.65 Type 2 diabetes mellitus with hyperglycemia; Z88.8 Allergy status to other drugs, medicaments and biological substances; Z79.84 Long term (current) use of oral hypoglycemic drugs; Z86.718 Personal history of other venous thrombosis and embolism; E11.22 Type 2 diabetes mellitus with diabetic chronic kidney disease; Z79.4 Long term (current) use of insulin; Z86.14 Personal history of Methicillin resistant Staphylococcus aureus infection; G40.909 Epilepsy, unspecified, not intractable, without status epilepticus; J69.0 Pneumonitis due to inhalation of food and vomit; E11.51 Type 2 diabetes mellitus with diabetic peripheral angiopathy without gangrene; N18.2 Chronic kidney disease, stage 2 (mild); Z79.01 Long term (current) use of anticoagulants; Z93.1 Gastrostomy status; E78.5 Hyperlipidemia, unspecified